=== PATIENT | male | born 1960 | race Caucasian/White ===

== ENCOUNTER 2020-05-22 15:47 | Outpatient (REF) | payer MEDICARE, MEDICAID, SELFPAY ==
--- NOTE | 2020-05-22 15:56 | XR_ITS ---
EXAMINATION: XR RIBS, RIGHT WITH CHEST XR STERNUM CLINICAL INFORMATION: R07.89 - Other chest pain COMPARISON: Chest radiographs 09/03/2016, 10/14/2011; CT chest 03/18/2017 TECHNIQUE: The chest and ribs are imaged in a total of 4 views: 2 frontal views and 2 oblique views. The sternum is imaged in 2 views: Oblique and lateral. (Interpretation delayed as order was cancelled in [facility] and now made available for review). FINDINGS: There is no visible acute rib fracture or rib destructive process. Old rib fractures are again seen, or right lateral sixth rib and left posterior lateral seventh, eighth, and ninth ribs. There is no pneumothorax or pleural reaction. No airspace consolidation or effusion. The cardiac and hilar and mediastinal contours are unremarkable. The sternum appears intact. No fracture or destructive process. There are mild degenerative changes thoracic spine again seen. XR/XR sternum min 2V IMPRESSION: 1. No acute rib fracture or rib destructive process. Unremarkable sternum. 2. Old fractures right lateral sixth rib and left seventh, eighth, and ninth ribs. 3. No acute intrathoracic disease.
--- NOTE | 2020-05-22 15:56 | XR_ITS ---
EXAMINATION: XR RIBS, RIGHT WITH CHEST XR STERNUM CLINICAL INFORMATION: R07.89 - Other chest pain COMPARISON: Chest radiographs 09/03/2016, 10/14/2011; CT chest 03/18/2017 TECHNIQUE: The chest and ribs are imaged in a total of 4 views: 2 frontal views and 2 oblique views. The sternum is imaged in 2 views: Oblique and lateral. (Interpretation delayed as order was cancelled in [facility] and now made available for review). FINDINGS: There is no visible acute rib fracture or rib destructive process. Old rib fractures are again seen, or right lateral sixth rib and left posterior lateral seventh, eighth, and ninth ribs. There is no pneumothorax or pleural reaction. No airspace consolidation or effusion. The cardiac and hilar and mediastinal contours are unremarkable. The sternum appears intact. No fracture or destructive process. There are mild degenerative changes thoracic spine again seen. XR/XR ribs RT min 3V w CXR1V IMPRESSION: 1. No acute rib fracture or rib destructive process. Unremarkable sternum. 2. Old fractures right lateral sixth rib and left seventh, eighth, and ninth ribs. 3. No acute intrathoracic disease.
== END 2020-05-22 15:48 | disposition home or self-care (01) ==
LOC: HO.XRAY 15:47
PROVIDERS: PCP Internal Medicine; Visit Provider Internal Medicine
DX: R07.89 Other chest pain (principal)
CPT/HCPCS: 71101; 71120

== ENCOUNTER 2020-09-06 07:19 | Outpatient (REF) | payer MEDICARE, MEDICAID, SELFPAY ==
[2020-09-06 07:45] LABS: MANUAL DIFF FLAG NO
[2020-09-06 07:51] LABS: Basophils Absolute Auto 0.1 X10*3/uL (0.0-0.2); Basophils Percent Auto 0.6 % (0-2); Eosinophils Absolute Auto 0.2 X10*3/uL (0.0-0.4); Hemoglobin 13.8 g/dl (14.0-18.0); Imm Gran Abs Auto 0.05 X10*3/uL (0.00-0.03); Imm Gran Pct Auto 0.6 % (0.0-0.4); Lymphocytes Absolute Auto 1.4 X10*3/uL (1.2-4.9); Lymphocytes Percent Auto 17.9 % (20-40); Mean Corpuscular HGB Conc 34.5 g/dl (31.0-36.0); Mean Corpuscular Hemoglobin 30.3 pg (27.0-33.0); Mean Corpuscular Volume 87.7 fL (80-98); Mean Platelet Volume 8.9 fL (9.4-12.4); Monocytes Absolute Auto 0.7 X10*3/uL (0.1-1.2); Monocytes Percent Auto 9.1 % (2-11); Neutrophils Absolute Auto 5.6 X10*3/uL (2.0-8.3); Neutrophils Percent Auto 68.8 % (45-73); Platelet Count 305 X10*3/uL (160-400); Red Blood Count 4.56 X10*6/uL (4.60-5.80); Red Cell Distribution Width 12.5 % (11.0-16.0); White Blood Count 8.1 X10*3/uL (4.8-10.8)
[2020-09-06 08:25] LABS: Glucose Urine UA NEG (NEG); Leukocyte Esterase Urine NEG (NEG); Nitrite Urine NEG (NEG); PH 5.5 (5.0-8.0); Urine Blood TRACE (NEG); Urine Ketones NEG (NEG); Urine Protein NEG (NEG-TRACE)
[2020-09-06 08:27] LABS: Appearance Urine CLEAR; Color Urine YELLOW
[2020-09-06 08:34] LABS: WBC Urine 0 /HPF (0-4)
[2020-09-06 08:48] LABS: Estimated Average Glucose 146 mg/dL; Hemoglobin A1c % 6.7 %
[2020-09-06 09:08] LABS: Alanine Aminotransferase 22 U/L (0-40); Albumin Level 4.2 g/dL (3.5-5.0); Alkaline Phosphatase 90 U/L (39-117); Anion Gap 11 (12-20); Aspartate Amino Transferase 14 U/L (5-37); Bilirubin Total 0.5 mg/dL (0.0-1.0); Blood Urea Nitrogen 18 mg/dL (9-16); Calcium 8.9 mg/dL (8.4-10.2); Carbon Dioxide 23 mmol/L (22-29); Chloride 107 mmol/L (96-108); Cholesterol 176 mg/dL; Estimated Glomerular Filt Rate 59; Glucose Fasting 195 mg/dL (60-99); HDL Cholesterol 35 mg/dL; LDL Cholesterol Calculated 111 mg/dl; Potassium 4.4 mmol/L (3.3-5.1); Sodium 137 mmol/L (135-145); Total Protein 6.7 g/dL (6.5-8.0); Triglycerides 154 mg/dL
[2020-09-06 09:18] LABS: TSH reflex Free T4 1.02 uIU/mL (0.32-4.0); Vitamin D 25-OH Total 34.9 ng/mL (>30)
[2020-09-06 09:25] LABS: Folate 10.7 ng/mL (> or = 4.0); Vitamin B12 200 pg/mL (200-900)
== END 2020-09-06 07:20 | disposition home or self-care (01) ==
LOC: HO.LAB 07:19
PROVIDERS: PCP Internal Medicine; Visit Provider Internal Medicine
DX: I10 Essential (primary) hypertension (principal); J44.9 Chronic obstructive pulmonary disease, unspecified; E78.2 Mixed hyperlipidemia; R73.01 Impaired fasting glucose; E66.9 Obesity, unspecified; G62.9 Polyneuropathy, unspecified; E55.9 Vitamin D deficiency, unspecified
CPT/HCPCS: 36415; 80053; 80061; 81001; 81003; 82306; 82607; 82746; 83036; 84443; 85025

== ENCOUNTER → 2020-12-17 14:37 | Outpatient (BNVA) | payer MEDICARE, MEDICAID, SELFPAY | PROVIDERS: PCP Internal Medicine; Visit Provider Surgery Vascular Surgery | DX: I83.12 Varicose veins of left lower extremity with inflammation (principal) | CPT/HCPCS: 99202 ==

== ENCOUNTER 2020-12-26 12:28 | Outpatient (REF) | payer MEDICARE, MEDICAID, SELFPAY ==
--- NOTE | ~2020-12-26 | US_ITS ---
EXAMINATION: RIGHT and LEFT LOWER EXTREMITY VENOUS ULTRASOUND (Reflux Exam) CLINICAL INDICATION: leg pain and varicose veins. COMPARISON: None. TECHNIQUE: Color flow triplex imaging and compression Doppler was performed to evaluate both the deep and the superficial systems bilaterally. To evaluate the superficial system, the examination was performed in the upright position. Color-flow Doppler ultrasound and compression ultrasound were utilized. In addition, maneuvers were utilized to demonstrate reflux. FINDINGS: 1. DEEP VENOUS ULTRASOUND OF THE RIGHT LOWER EXTREMITY: Respiratory variation, normal compression and augmented flow are noted in the right common femoral vein as well as the right popliteal vein and there is no evidence of deep venous thrombosis at these locations. There is no evidence of reflux in the deep system in either the common femoral vein or the popliteal vein. There is no evidence of a Mcknight's cyst. 2. SUPERFICIAL ULTRASOUND WITH DOPPLER OF RIGHT LOWER EXTREMITY: The right great saphenous vein at the saphenofemoral junction measures 7 mm, at the mid thigh 3 mm, rvbzr-unl-opcv 3 mm, qlisg-ovl-brta 3 mm, at mid calf 3 mm and at the ankle measures 3 mm. There is no reflux demonstrated in the right great saphenous vein. There is an accessory medial greater saphenous vein that measures 6 mm and does not demonstrate reflux The right small saphenous vein measures 0.3 mm and shows no reflux. There are 2 perforators in the calf that measure 2 and 3 mm and do not demonstrate reflux. 3. DEEP VENOUS ULTRASOUND OF THE LEFT LOWER EXTREMITY: Respiratory variation, normal compression and augmented flow are noted in the left common femoral vein as well as the left popliteal vein and there is no evidence of deep venous thrombosis at these locations. There is no evidence of reflux in the deep system in either the common femoral vein or the popliteal vein. . There is no evidence of a Mcknight's cyst. 4. SUPERFICIAL ULTRASOUND WITH DOPPLER OF LEFT LOWER EXTREMITY: Left great saphenous vein at the saphenofemoral junction measures 8 mm, at the mid thigh 3 mm, pcobe-rxs-qrps 4 mm, woytx-wrn-bdka 3 mm, at mid calf 3 mm and at the ankle measures 3 mm. There is 0.4 seconds reflux below the knee. There is an accessory lateral greater saphenous vein that measures 5 mm do not demonstrate reflux. The left small saphenous vein measures 2-3 mm and shows no reflux. There are 2 perforators in the calf that measure 3 mm and do not demonstrate reflux. US/US venous duplex LE BI IMPRESSION: 1. No evidence of reflux or thrombus in the common femoral veins or popliteal veins bilaterally. 2. No right greater saphenous vein reflux. 0.4 seconds left greater saphenous vein reflux below the knee.
== END 2020-12-26 12:29 | disposition home or self-care (01) ==
LOC: HO.US 12:28
PROVIDERS: Visit Provider Surgery Vascular Surgery
DX: I83.12 Varicose veins of left lower extremity with inflammation (principal); I83.893 Varicose veins of bilateral lower extremities with other complications
CPT/HCPCS: 93970

== ENCOUNTER 2021-01-07 14:47 | Outpatient (REF) | payer MEDICARE, MEDICAID, SELFPAY ==
[2021-01-07 18:15] LABS: Anion Gap 15 (12-20); Blood Urea Nitrogen 12 mg/dL (9-16); Calcium 10.3 mg/dL (8.4-10.2); Carbon Dioxide 25 mmol/L (22-29); Chloride 104 mmol/L (96-108); Estimated Glomerular Filt Rate 56; Glucose Random 94 mg/dL (60-115); Potassium 4.7 mmol/L (3.3-5.1); Sodium 139 mmol/L (135-145)
[2021-01-07 18:21] LABS: B Type Natriuretic Peptide 13 pg/mL (<100)
[2021-01-09 13:41] LABS: H Pylori Breath Test NOT DETECTED (NOT DETECTED)
== END 2021-01-07 14:48 | disposition home or self-care (01) ==
LOC: HO.LAB 14:47
PROVIDERS: Nurse Practitioner Family; PCP Internal Medicine; Visit Provider Surgery Vascular Surgery
DX: K21.9 Gastro-esophageal reflux disease without esophagitis (principal); K59.00 Constipation, unspecified; R07.89 Other chest pain; M79.89 Other specified soft tissue disorders; R06.02 Shortness of breath; Z87.891 Personal history of nicotine dependence
CPT/HCPCS: 36415; 80048; 83013; 83880; 99202; 99212

== ENCOUNTER → 2021-01-17 16:02 | Outpatient (BNVA) | payer MEDICARE, MEDICAID, SELFPAY | PROVIDERS: PCP Internal Medicine; Visit Provider Nurse Practitioner Family | DX: K21.9 Gastro-esophageal reflux disease without esophagitis (principal); K59.00 Constipation, unspecified | CPT/HCPCS: 99212 ==

== ENCOUNTER → 2021-02-11 14:37 | Outpatient (BNVA) | payer MEDICARE, MEDICAID, SELFPAY | PROVIDERS: PCP Internal Medicine; Referring Provider Internal Medicine; Visit Provider Internal Medicine | DX: R07.2 Precordial pain (principal); J44.9 Chronic obstructive pulmonary disease, unspecified; I10 Essential (primary) hypertension; E78.5 Hyperlipidemia, unspecified; E66.01 Morbid (severe) obesity due to excess calories; K21.9 Gastro-esophageal reflux disease without esophagitis; K59.01 Slow transit constipation; E53.8 Deficiency of other specified B group vitamins; E55.9 Vitamin D deficiency, unspecified; F17.210 Nicotine dependence, cigarettes, uncomplicated; Z68.35 Body mass index [BMI] 35.0-35.9, adult; Z79.899 Other long term (current) drug therapy | CPT/HCPCS: 93005; 99202; 99212 ==

== ENCOUNTER → 2021-02-28 11:20 | Outpatient (REF) | payer MEDICARE, MEDICAID, SELFPAY ==
--- NOTE | 2021-02-28 11:24 | CA_ITS ---
Transthoracic Echocardiogram Patient (Last, First, Middle): Toby Jackson D Gender: Male Date of : 1960 Age: 61 Procedure Date: 02/28/2021 Procedure Type: Transthoracic Echocardiogram Location: OP Height: 182.88 cm Weight: 127.01 kg BSA: 2.46 m2 Heart Rate: bpm BP: 146 / 68 mmHg Bin Operator: Referring MD: Esdras Thorpe MD Symptoms: R07.2 - Precordial pain Conclusions: - Normal left ventricular size, thickness, and systolic function. - The basal inferior segment is akinetic. - Normal right ventricular cavity size and systolic function. Findings Left Ventricle Normal left ventricular size, thickness, and systolic function. There is evidence of regional wall motion abnormalities. Diastolic function is normal for age. Wall Motion Rest Echo Findings The basal inferior segment is akinetic. Right Ventricle Normal right ventricular cavity size and systolic function. Atria Both atria are normal in size. Aortic Valve Normal aortic valve structure and function. There is no aortic valve stenosis. There is no aortic valve regurgitation. Mitral Valve Normal mitral valve structure and function. There is trace mitral valve regurgitation. There is no mitral valve stenosis. Pulmonic Valve Normal pulmonic valve structure and function. There is trace pulmonic valve regurgitation. Tricuspid Valve Normal tricuspid valve structure and function. There is trace tricuspid valve regurgitation. Tricuspid regurgitation envelope is inadequate for calculation of right ventricular systolic pressure. Normal right atrial pressure. Great Vessels All visible segments of the aorta are normal in size. The visualized portions of the pulmonary artery and branches are normal. Venous The inferior vena cava is normal in size and collapses greater than 50% with inspiration. Pericardium/Pleural There is no evidence of pericardial effusion. Prior Study Comparison No prior study available for comparison. Measurements 2D Linear Measurements RVIDd: 3.73 RVIDd Index: 1.52 IVSd: 0.69 0.6-0.9/0.6-1.0 cm LVIDd: 6.28 3.9-5.3/4.2-5.9 cm LVIDd Index: 2.55 2.4-3.2/2.2-3.1 cm/m2 LVIDs: 3.84 2.0-3.6 cm LVPWd: 1.11 0.7-1.1 cm Ao Root: 3.20 2.1-3.5 cm LA Diam: 3.70 2.7-3.8/3.0-4.0 cm LAIDs Index: 1.50 1.5-2.3 cm/m2 LV Mass: 291.44 67-162/88-224 g LV Mass Index: 118.47 43-95/49-115 g/m2 LVOT Diam: 2.50 3.0+(-)1.3 cm 2D Systolic Function EF 4C: 72.80 >55% EF 2C: 36.80 >55% EF BiP: 59.00 >55% Mitral Valve MV Pk E: 0.65 MV PK A: 0.63 MV Decel Time: 231.00 E/A: 1.00 E'Lateral: 8.92 E'Medial: 4.79 E/E' Med: 13.60 E/E' Lat: 7.30 Aortic Valve AoV Pk Jevon: 1.52 AoV Mn Jevon: 1.04 AoV VTI: 0.30 AoV Pk Grad: 9.00 Aov Mn Grad: 5.00 DESHAUN Cont.VTI: 3.88 LVOT LVOT Pk Jevon: 1.08 LVOT Mn Jevon: 0.71 LVOT VTI: 0.24 LVOT Pk Grad: 5.00 LVOT Mn Grad: 2.00 LVOT Diam: 2.50 LVOT Area: 4.91 Diastolic Function MV Pk E: 0.65 MV Pk A: 0.63 E/A: 1.00 E'Medial: 4.79 E/E' Med: 13.60 E' Laterial: 8.92 E/E' Lat: 7.30 Right Ventricle TAPSE (mm): 22.00 TVS' Jevon: 10.20 Tricuspid Valve RA Press: 3.00 Great Vessels Aorta Ao Root-2D: 3.20 2.0-3.7 cm Ao Asc: 3.30 2.1-3.4 cm Updated in Other Vendor System with Status of Final Umesh Snow MD electronically signed on 03/01/2021 4:29:28 PM with status of Final
== END ==
LOC: HO.CARD 11:20
PROVIDERS: Visit Provider Internal Medicine
DX: R07.2 Precordial pain (principal)
CPT/HCPCS: 93306

== ENCOUNTER → 2021-03-13 09:36 | Outpatient (REF) | payer MEDICARE, MEDICAID, SELFPAY ==
--- NOTE | ~2021-03-13 | NM_ITS ---
[facility] Myocardial perfusion study Indication: Chest pain, assess for coronary disease and ischemia Technique: The patient was brought in for a dobutamine myocardial perfusion study on 03/13/2021 and was injected dobutamine intravenously per protocol. 45 mCi of sestamibi was given intravenously. Images were obtained using the SPECT gamma camera interlaced with the gating device. Images were obtained in supine position. Resting perfusion study was performed on 03/14/2021. Patient was administered 45 mCi of sestamibi intravenously at rest. Images were then obtained in supine position. Total DLP 115mGy-cm. Images were processed with the software and compared side to side in short axis, horizontal long axis and vertical long axis views. Findings: Raw acquisition was reviewed. The stress perfusion study showed markedly diminished tracer uptake along the inferior wall; basal septum. There is improvement with CT attenuation correction and hence could have components of diaphragmatic attenuation artifact. The most distal inferior wall still has perfusion defect. The gated study shows low normal LV systolic function with calculated LVEF of 51%. LV cavity is slightly dilated in size. The gated study shows diminished wall thickening and contractility in the inferior wall. Resting study shows markedly diminished tracer uptake in the inferior wall, basal inferior septum and septum. There is improvement with CT attenuation correction and hence could be from diaphragmatic attenuation artifact. In the most distal inferior wall, the defect still persists. Gating at rest reveals ejection fraction at 46%. Inferior wall with slight hypokinesis. The findings are consistent with mostly fixed inferior wall defect with minimal reversibility. Improvement with CT attenuation correction could indicate diaphragmatic attenuation artifact, but cannot exclude a prior inferior wall infarction. NM/NM cardiolite stress test Impression: 1. Myocardial perfusion imaging study shows fixed inferior perfusion defect that could be from a prior infarct vs diaphragmatic attenuation artifact. Could also has some components of both. 2. Gated LVEF is 51% during stress and 46% during rest. 3. Transient ischemic dilatation not present. EKG component of the test reported separately.
--- NOTE | 2021-03-13 09:42 | CA_ITS ---
Acquisition Time: 2021-03-13 10:01:24 Total Exercise Time: 00:10:16 Test Indications: Dyspnea Medications: ALBUTEROL AMLODIPINE FAMOTIDINE TRELOGY/ELLIPTA LOSARTAN PANTOPRAZOLE TOPIRAMATE TRAMADOL Protocol: DOBUTAMINE Max HR: 141 BPM 89% of Pred: 157 BPM Max BP: 190/078 mmHG Max Work Load: 1.0 METS Pharmacological stress test with Dobutamine infusion to max of 20mcg/kg/min achieving heart rate 141 b/min, 89% MPHR, while sitting and kicking his legs, with moderate to severe shortness of breath, no chest discomfort, with isolated PVC, with normotensive response to infusion, without EKG changes meeting criteria for ischemia. In recovery he was given O2 2liters and he used 2 puffs of his own albuteral inhaler. His breathing gradually improved back to baseline. In recovery he did report getting an episode of heartburn that was mild and same as what he gets at home and responds to tums if it gets real bad. He denies need for tums at this time. He was recovered for 14 min and reports feeling back to his normal. Nuclear images pending. Test reviewed with Dr Thorpe. Referred By: Esdras Thorpe Overread By: DERICK DE JESUS
== END ==
LOC: HO.CARD 09:36
PROVIDERS: Visit Provider Internal Medicine
DX: R07.2 Precordial pain (principal); R06.02 Shortness of breath
CPT/HCPCS: 78452; 93017; A9500; J1250

== ENCOUNTER → 2021-03-18 13:50 | Outpatient (BNVA) | payer MEDICARE, MEDICAID, SELFPAY | PROVIDERS: PCP Internal Medicine; Visit Provider Nurse Practitioner Family | DX: K59.04 Chronic idiopathic constipation (principal); K21.9 Gastro-esophageal reflux disease without esophagitis | CPT/HCPCS: Q3014 ==

== ENCOUNTER 2021-03-20 08:59 | Outpatient (REF) | payer MEDICARE, MEDICAID, SELFPAY ==
[2021-03-20 10:39] LABS: INTERNATIONAL NORM RATIO 1.1 (0.9-1.1); Prothrombin Time 12.1 SEC (9.9-13.0)
[2021-03-20 10:41] LABS: Hematocrit 42.4 % (42-52); Hemoglobin 14.2 g/dl (14.0-18.0); Mean Corpuscular HGB Conc 33.5 g/dl (31.0-36.0); Mean Corpuscular Hemoglobin 29.6 pg (27.0-33.0); Mean Corpuscular Volume 88.5 fL (80-98); Mean Platelet Volume 9.5 fL (9.4-12.4); Platelet Count 300 X10*3/uL (160-400); Red Blood Count 4.79 X10*6/uL (4.60-5.80); Red Cell Distribution Width 12.6 % (11.0-16.0); White Blood Count 8.8 X10*3/uL (4.8-10.8)
[2021-03-20 10:56] LABS: Anion Gap 10 (12-20); Blood Urea Nitrogen 13 mg/dL (9-16); Calcium 9.3 mg/dL (8.4-10.2); Carbon Dioxide 27 mmol/L (22-29); Chloride 108 mmol/L (96-108); Estimated Glomerular Filt Rate > 60; Glucose Random 106 mg/dL (60-115); Potassium 4.7 mmol/L (3.3-5.1); Sodium 140 mmol/L (135-145)
== END 2021-03-20 09:00 | disposition home or self-care (01) ==
LOC: HO.LAB 08:59
PROVIDERS: PCP Internal Medicine; Referring Provider Internal Medicine; Visit Provider Internal Medicine
DX: R07.2 Precordial pain (principal); J44.9 Chronic obstructive pulmonary disease, unspecified; I10 Essential (primary) hypertension; E78.5 Hyperlipidemia, unspecified; E66.01 Morbid (severe) obesity due to excess calories; Z68.35 Body mass index [BMI] 35.0-35.9, adult; F17.200 Nicotine dependence, unspecified, uncomplicated; Z71.6 Tobacco abuse counseling; Z79.899 Other long term (current) drug therapy
CPT/HCPCS: 36415; 80048; 85027; 85610; 99212

== ENCOUNTER → 2021-04-08 13:18 | Outpatient (BNVA) | payer MEDICARE, MEDICAID, SELFPAY | PROVIDERS: PCP Internal Medicine; Referring Provider Internal Medicine; Visit Provider Internal Medicine | DX: I25.10 Atherosclerotic heart disease of native coronary artery without angina pectoris (principal); I10 Essential (primary) hypertension; E78.5 Hyperlipidemia, unspecified; E66.01 Morbid (severe) obesity due to excess calories; F17.200 Nicotine dependence, unspecified, uncomplicated; J44.9 Chronic obstructive pulmonary disease, unspecified | CPT/HCPCS: 99212 ==

== ENCOUNTER 2021-05-27 07:10 | Outpatient (REF) | payer MEDICARE, MEDICAID, SELFPAY ==
[2021-05-27 07:15] LABS: MANUAL DIFF FLAG NO
[2021-05-27 08:15] LABS: Basophils Percent Auto 0.4 % (0-2); Eosinophils Absolute Auto 0.3 X10*3/uL (0.0-0.4); Eosinophils Percent Auto 2.8 % (0-4); Hematocrit 44.6 % (42.0-52.0); Hemoglobin 14.9 g/dl (14.0-18.0); Imm Gran Abs Auto 0.05 X10*3/uL (0.00-0.03); Imm Gran Pct Auto 0.5 % (0.0-0.4); Lymphocytes Absolute Auto 1.2 X10*3/uL (1.2-4.9); Lymphocytes Percent Auto 11.9 % (20-40); Mean Corpuscular HGB Conc 33.4 g/dl (31.0-36.0); Mean Corpuscular Hemoglobin 29.6 pg (27.0-33.0); Mean Corpuscular Volume 88.7 fL (80.0-98.0); Mean Platelet Volume 8.9 fL (9.4-12.4); Monocytes Absolute Auto 0.8 X10*3/uL (0.1-1.2); Monocytes Percent Auto 7.4 % (2-11); Neutrophils Absolute Auto 7.8 x10*3/uL (2.0-8.3); Platelet Count 305 X10*3/uL (160-400); Red Blood Count 5.03 X10*6/uL (4.60-5.80); White Blood Count 10.1 X10*3/uL (4.8-10.8)
[2021-05-27 08:24] LABS: Estimated Average Glucose 114 mg/dL; Hemoglobin A1c % 5.6 %
[2021-05-27 08:39] LABS: Alanine Aminotransferase 21 U/L (0-40); Albumin Level 4.3 g/dL (3.5-5.0); Alkaline Phosphatase 119 U/L (39-117); Anion Gap 12 (12-20); Aspartate Amino Transferase 15 U/L (5-37); Bilirubin Total 0.5 mg/dL (0.0-1.0); Blood Urea Nitrogen 11 mg/dL (9-16); Calcium 9.7 mg/dL (8.4-10.2); Carbon Dioxide 27 mmol/L (22-29); Chloride 105 mmol/L (96-108); Cholesterol 101 mg/dL; Estimated Glomerular Filt Rate > 60; Glucose Fasting 125 mg/dL (60-99); HDL Cholesterol 33 mg/dL; LDL Cholesterol Calculated 53 mg/dl; Potassium 4.7 mmol/L (3.3-5.1); Sodium 139 mmol/L (135-145); Triglycerides 79 mg/dL
[2021-05-27 09:01] LABS: Appearance Urine CLEAR; Color Urine YELLOW; Glucose Urine UA NEG (NEG); Leukocyte Esterase Urine NEG (NEG); Nitrite Urine NEG (NEG); Specific Gravity - Urine 1.015 (1.005-1.025); Urine Blood NEG (NEG); Urine Ketones NEG (NEG); Urine Protein NEG (NEG-TRACE)
[2021-05-27 09:02] LABS: TSH reflex Free T4 1.11 uIU/mL (0.32-4.0); Vitamin D 25-OH Total 42.4 ng/mL (>30)
[2021-05-27 09:07] LABS: Folate 8.2 ng/mL (> or = 4.0); Vitamin B12 953 pg/mL (200-900)
== END 2021-05-27 07:11 | disposition home or self-care (01) ==
LOC: HO.LAB 07:10
PROVIDERS: PCP Internal Medicine; Visit Provider Internal Medicine
DX: E55.9 Vitamin D deficiency, unspecified (principal); I10 Essential (primary) hypertension; J44.9 Chronic obstructive pulmonary disease, unspecified; R73.01 Impaired fasting glucose; E78.2 Mixed hyperlipidemia; E66.9 Obesity, unspecified; G62.9 Polyneuropathy, unspecified; R35.0 Frequency of micturition
CPT/HCPCS: 36415; 80053; 80061; 81003; 82306; 82607; 82746; 83036; 84443; 85025

== ENCOUNTER → 2021-06-10 12:48 | Outpatient (BNVA) | payer MEDICARE, MEDICAID, SELFPAY | PROVIDERS: PCP Internal Medicine; Referring Provider Internal Medicine; Visit Provider Internal Medicine | DX: I25.10 Atherosclerotic heart disease of native coronary artery without angina pectoris (principal); I10 Essential (primary) hypertension; E78.5 Hyperlipidemia, unspecified; J44.9 Chronic obstructive pulmonary disease, unspecified; E66.01 Morbid (severe) obesity due to excess calories; F17.210 Nicotine dependence, cigarettes, uncomplicated; Z68.34 Body mass index [BMI] 34.0-34.9, adult | CPT/HCPCS: 99212 ==

== ENCOUNTER → 2021-07-24 15:05 | Outpatient (BNVA) | payer MEDICARE, MEDICAID, SELFPAY | PROVIDERS: PCP Internal Medicine; Referring Provider Internal Medicine; Visit Provider Nurse Practitioner Family | DX: K59.04 Chronic idiopathic constipation (principal); K21.9 Gastro-esophageal reflux disease without esophagitis | CPT/HCPCS: 99212 ==

== ENCOUNTER 2021-09-04 10:08 | Outpatient (REF) | payer MEDICARE, MEDICAID, SELFPAY ==
--- NOTE | ~2021-09-04 | US_ITS ---
EXAMINATION: US SCROTUM CLINICAL INFORMATION: Left testicular pain. Rule out epididymal cyst. COMPARISON: None TECHNIQUE: A sonogram of the scrotum was performed assessing chow-scale appearance and color Doppler flow. Spectral Doppler analysis of the arterial and venous flow were performed in the testes bilaterally. FINDINGS: RIGHT: Right testicle measures 3.59 x 2.42 x 2.95 cm, volume 13.4 mL. No focal testicular parenchymal lesions are visualized. Spectral Doppler analysis of the arterial and venous flow is normal in the right testis. Right epididymal head cyst 1.1 x 0.4 x 0.7 cm. Mild hydrocele. There are dilated veins suggesting varicocele. LEFT: Left testicle measures 3.85 x 2.04 x 3.39 cm, volume 13.9 mL. No focal testicular parenchymal lesions are visualized. Spectral Doppler analysis of the arterial and venous flow is normal in the left testis. Left epididymal head is normal in size. Mild varicocele and hydrocele. US/US scrotum IMPRESSION: *No suspicious intratesticular mass or lesion. *Bilateral mild hydroceles/varicoceles. *Right epididymal head cyst. 1.1 cm.
== END 2021-09-04 10:09 | disposition home or self-care (01) ==
LOC: HO.HMGCX 10:08
PROVIDERS: PCP Internal Medicine; Visit Provider Physician Assistant
DX: N50.812 Left testicular pain (principal)
CPT/HCPCS: 76870

== ENCOUNTER → 2021-09-16 12:53 | Outpatient (BNVA) | payer MEDICARE, MEDICAID, SELFPAY | PROVIDERS: PCP Internal Medicine; Referring Provider Internal Medicine; Visit Provider Internal Medicine | DX: I25.10 Atherosclerotic heart disease of native coronary artery without angina pectoris (principal); I10 Essential (primary) hypertension; J44.9 Chronic obstructive pulmonary disease, unspecified; E78.5 Hyperlipidemia, unspecified; E66.01 Morbid (severe) obesity due to excess calories; Z68.32 Body mass index [BMI] 32.0-32.9, adult; F17.200 Nicotine dependence, unspecified, uncomplicated; Z79.02 Long term (current) use of antithrombotics/antiplatelets; Z79.899 Other long term (current) drug therapy | CPT/HCPCS: 99212 ==

== ENCOUNTER → 2021-10-28 13:42 | Outpatient (BNVA) | payer MEDICARE, MEDICAID, SELFPAY | PROVIDERS: PCP Internal Medicine; Referring Provider Internal Medicine; Visit Provider Nurse Practitioner Family | DX: K21.9 Gastro-esophageal reflux disease without esophagitis (principal); K59.04 Chronic idiopathic constipation | CPT/HCPCS: 99212 ==

== ENCOUNTER 2022-01-12 06:43 | Outpatient (REF) | payer MEDICARE, MEDICAID, SELFPAY ==
[2022-01-12 07:14] LABS: MANUAL DIFF FLAG NO
[2022-01-12 08:03] LABS: Basophils Absolute Auto 0.1 X10*3/uL (0.0-0.2); Basophils Percent Auto 0.8 % (0-2); Eosinophils Absolute Auto 0.3 X10*3/uL (0.0-0.4); Eosinophils Percent Auto 4.6 % (0-4); Hematocrit 45.1 % (42.0-52.0); Hemoglobin 15.4 g/dl (14.0-18.0); Imm Gran Abs Auto 0.02 X10*3/uL (0.00-0.03); Imm Gran Pct Auto 0.3 % (0.0-0.4); Lymphocytes Absolute Auto 1.3 X10*3/uL (1.2-4.9); Lymphocytes Percent Auto 20.4 % (20-40); Mean Corpuscular HGB Conc 34.1 g/dl (31.0-36.0); Mean Corpuscular Hemoglobin 30.3 pg (27.0-33.0); Mean Corpuscular Volume 88.6 fL (80.0-98.0); Mean Platelet Volume 9.1 fL (9.4-12.4); Monocytes Absolute Auto 0.6 X10*3/uL (0.1-1.2); Monocytes Percent Auto 9.7 % (2-11); Neutrophils Absolute Auto 4.1 x10*3/uL (2.0-8.3); Neutrophils Percent Auto 64.2 % (45-73); Platelet Count 256 X10*3/uL (160-400); Red Blood Count 5.09 X10*6/uL (4.60-5.80); Red Cell Distribution Width 12.4 % (11.0-16.0); White Blood Count 6.3 X10*3/uL (4.8-10.8)
[2022-01-12 08:13] LABS: Estimated Average Glucose 103 mg/dL; Hemoglobin A1c % 5.2 %
[2022-01-12 08:17] LABS: Appearance Urine CLEAR; Color Urine YELLOW; Glucose Urine UA NEG (NEG); Leukocyte Esterase Urine NEG (NEG); Nitrite Urine NEG (NEG); UACC Culture Trigger NO; Urine Blood 1+ (NEG); Urine Ketones NEG (NEG); Urine Protein NEG (NEG-TRACE)
[2022-01-12 08:33] LABS: Alanine Aminotransferase 17 U/L (0-40); Albumin Level 4.3 g/dL (3.5-5.0); Alkaline Phosphatase 117 U/L (39-117); Anion Gap 10 (12-20); Aspartate Amino Transferase 14 U/L (5-37); Bilirubin Total 0.9 mg/dL (0.0-1.0); Blood Urea Nitrogen 16 mg/dL (9-16); Calcium 9.4 mg/dL (8.4-10.2); Carbon Dioxide 27 mmol/L (22-29); Chloride 106 mmol/L (96-108); Cholesterol 102 mg/dL; Estimated Glomerular Filt Rate > 60; Glucose Fasting 107 mg/dL (60-99); HDL Cholesterol 37 mg/dL; LDL Cholesterol Calculated 50 mg/dl; Potassium 4.6 mmol/L (3.3-5.1); Sodium 138 mmol/L (135-145); Total Protein 6.6 g/dL (6.5-8.0); Triglycerides 79 mg/dL
[2022-01-12 08:37] LABS: WBC Urine 0-2 /HPF (0-4)
[2022-01-12 08:54] LABS: TSH reflex Free T4 1.05 uIU/mL (0.32-4.0); Vitamin D 25-OH Total 40.7 ng/mL (>30)
== END 2022-01-12 06:44 | disposition home or self-care (01) ==
LOC: HO.LAB 06:43
PROVIDERS: PCP Internal Medicine; Visit Provider Internal Medicine
DX: R73.01 Impaired fasting glucose (principal); I10 Essential (primary) hypertension; E55.9 Vitamin D deficiency, unspecified; E78.00 Pure hypercholesterolemia, unspecified
CPT/HCPCS: 36415; 80053; 80061; 81001; 81003; 82306; 83036; 84443; 85025

== ENCOUNTER 2022-02-20 08:11 | Outpatient (AMB) | payer MEDICARE, MEDICAID, SELFPAY ==
--- NOTE | 2022-02-19 11:06 | A.OFFVIS_ITS ---
Intake Vital Signs 02/20/22 08:33 Height 6 ft 1 in Weight 242 lb BMI 31.9 BP 140/68 H Blood Pressure Location Rt brachial Position Sitting Intake Visit Reasons: Testicular Pain Intake Note: Patient is present for testicular pain Patient does have hisory of urinary frequency Patient states that he has been having this pain for over 3 months. States the pain comes and goes Environmental Coordinator Required: No Accompanied by: Self / Same As Patient Allergies No Known Allergies Allergy (Verified 07/27/23 15:13) HPI HPI Comments History of Present Illness Details Toby is a pleasant male. He is a patient of Dr. Disla. He is seen for the following urologic conditions - Inguinal disruption Left medial inguinal canal pain on examination Therapeutic plan conservative therapy with anti-inflammatories Would consider PT if symptoms persist more than 2-3 months PFSH Medical History (Updated 07/27/23 @ 15:41 by Sanju Disla MD) Overweight (BMI 25.0-29.9) Constipation Atherosclerotic cardiovascular disease Swelling of left lower extremity Vitamin B12 deficiency GERD without esophagitis Anterior chest wall pain Mixed hyperlipidemia Primary insomnia Urinary frequency Neuropathy Vitamin D deficiency Osteoarthritis Lumbar degenerative disc disease Impaired fasting glucose Benign essential hypertension COPD (chronic obstructive pulmonary disease) Headache Epidermoid cyst Surgical History History of cardiac cath History of colonoscopy Family History Father Colon cancer Mother Medical history unknown Social History Housing: Apartment Alcohol intake: former Patient Tobacco Use Status: Current everyday Tobacco user Tobacco use type: Cigarette Cigarettes Per Day: 6 Years Smoked: 30 +/- e-Cigarette/Vaping Use: Never Used Second Hand Smoke Exposure: Yes service: No Current occupational status: disabled Cognitive needs: No Hearing needs: Yes Vision needs: Yes (reading glasses) Review of Systems Const Denies chills and Denies fever(s) Card Reports no additional complaints and Denies syncope Resp Denies cough GI Denies abdominal pain and Denies heartburn Reports as per HPI and Denies change in libido Neuro Denies syncope Psych Denies change in libido Endo Denies change in libido Physical Exam Vital Signs: Last Vital Signs BP 140/68 H 08/19/22 08:33 BMI result Body Mass Index 31.9 Const General: cooperative, healthy appearing, comfortable and no acute distress Orientation/consciousness: patient oriented x3 HEENT Face and sinus: Yes normal facial exam Mouth: moist mucous membranes Neck Neck: Yes normal visual inspection, Yes full ROM and Yes trachea midline Chest Chest palpation & inspection: normal inspection of the chest Resp Effort & Inspection: normal respiratory effort, able to speak in complete [place] and no respiratory distress GI Inspection: Yes normal to inspection Back/Spine/Pelvis Cervical Spine: normal cervical lordosis Thoracic/Lumbar Spine: thoracic and lumbar spine normal to inspection Skin General skin exam: no rashes or lesions noted Neuro General: patient oriented x3, gait normal, tone normal and moves all extremities Extrem General: Yes normal to inspection and Yes capillary refill normal Results AMB Urinalysis, Automated UA Leukoctes 0 Lila/uL Last Edit by RAND Hendricks on 02/20/22 08:46 UA Nitrite Negative Last Edit by Tisha Dumont [facility] on 02/20/22 08:46 UA Urobilinogen 0.2 mg/dL Last Edit by Tisha Dumont [facility] on 02/20/22 08:4 6 UA Protein 0 mg/dL Last Edit by Tisha Dumont [facility] on 02/20/22 08:46 UA pH 6.0 Last Edit by Tisha Dumont [facility] on 02/20/22 08:46 UA Blood 80 Kevin/uL Last Edit by Tisha Dumont [facility] on 02/20/22 08:46 UA Specific [place] 1.015 Last Edit by VAL Hendricks on 02/20/22 08: 46 UA Ketone Negative Last Edit by Tisha Dumont [facility] on 02/20/22 08:46 UA Bilirubin 0 mg/dL Last Edit by RAND Hendricks on 02/20/22 08:46 UA Glucose 0 mg/dL Last Edit by Tisha Dumont [facility] on 02/20/22 08:46 Results Reviewed Results Reviewed: Laboratory Last Values Urine pH (Auto) 6.0 02/20/22 08:44 [address] [place] (Auto) 1.015 02/20/22 08:44 Urine Protein (Auto) 0 mg/dL 02/20/22 08:44 Glucose (UA)(Auto) 0 mg/dL 02/20/22 08:44 Urine Ketones (Auto) Negative 02/20/22 08:44 Urine Blood (Auto) 80 Kevin/uL 02/20/22 08:44 Urine Nitrite (Auto) Negative 02/20/22 08:44 Urine Bilirubin (Auto) 0 mg/dL 02/20/22 08:44 Urine Urobilinogen (Auto) 0.2 mg/dL 02/20/22 08:44 Leukocyte Esterase (Auto) 0 Lila/uL 02/20/22 08:44 Assessment & Plan Assessment & Plan (1) BPH loc w urin obs/LUTS: Code(s): N40.1 - Benign prostatic hyperplasia with lower urinary tract symptoms (2) Testicular pain, left: Code(s): N50.812 - Left testicular pain Plan P.r.n. follow-up Orders: Orders AMB Urinalysis Automated 02/20/22 Z13.9 - Encounter for screening, unspecified Urine Cytology 02/20/22 R31.29 - Other microscopic hematuria Patient Instructions: Imaging studies, laboratory and physical exam results were discussed and reviewed in detail. No major barriers to patient understanding were identified. An opportunity to ask questions regarding the treatment plan was provided. All questions were answered. The patient expressed understanding and agreement with the above treatment plan. The patient is aware they should contact our office by phone for worsening of their current condition or the appearance of new urologic symptoms. Compliance i s encouraged with any medications and followup testing that is ordered. It is a privilege to participate in the urologic care of your patient. If you have any questions or concerns regarding treatment for the above conditions, or other urologic issues, please do not hesitate to contact me. The office telephone contact is [phone]. This note is constructed using voice recognition software. While every effort has been made to ensure accuracy backroom associate errors may have been included. Yours sincerely, Dr Francisco Pizano MD, [facility] - Urology Providers of Expert, Compassionate Care for the Genitourinary System Coding Level of Care Code New Pt Level 3 (24512) Diagnoses BPH loc w urin obs/LUTS N40.1 Testicular pain, left N50.812
[2022-02-20 08:33] VITALS: BP 140/68; BMI 31.9
== END 2022-02-20 09:16 | disposition home or self-care (01) ==
LOC: HO.HUSH 08:11
PROVIDERS: PCP Internal Medicine; Visit Provider Urology
DX: N40.1 Benign prostatic hyperplasia with lower urinary tract symptoms (principal); N50.812 Left testicular pain
CPT/HCPCS: 99499

== ENCOUNTER 2022-02-20 09:31 | Outpatient (REF) | payer MEDICARE, MEDICAID, SELFPAY ==
[2022-02-24 06:58] LABS: Urine Cytology See Pathology rpt
== END 2022-02-20 09:32 | disposition home or self-care (01) ==
LOC: HO.LAB 09:31
PROVIDERS: Visit Provider Urology
DX: R31.29 Other microscopic hematuria (principal)
CPT/HCPCS: 88112

== ENCOUNTER 2022-02-20 13:01 | Outpatient (REF) | payer MEDICARE, MEDICAID, SELFPAY ==
[2022-02-20 13:05] LABS: Urine Cytology See Pathology rpt
== END 2022-02-20 13:02 | disposition home or self-care (01) ==
LOC: HO.LNP 13:01
PROVIDERS: Visit Provider Urology
DX: Z13.89 Encounter for screening for other disorder (principal)

== ENCOUNTER → 2022-03-17 15:03 | Outpatient (BNVA) | payer MEDICARE, MEDICAID, SELFPAY | PROVIDERS: PCP Internal Medicine; Visit Provider Nurse Practitioner Family | DX: K21.9 Gastro-esophageal reflux disease without esophagitis (principal); K59.04 Chronic idiopathic constipation; K58.2 Mixed irritable bowel syndrome; Z79.899 Other long term (current) drug therapy | CPT/HCPCS: 99212 ==

== ENCOUNTER → 2022-03-24 12:53 | Outpatient (BNVA) | payer MEDICARE, MEDICAID, SELFPAY | PROVIDERS: PCP Internal Medicine; Referring Provider Internal Medicine; Visit Provider Internal Medicine | DX: I25.10 Atherosclerotic heart disease of native coronary artery without angina pectoris (principal); I10 Essential (primary) hypertension; E78.5 Hyperlipidemia, unspecified; J44.9 Chronic obstructive pulmonary disease, unspecified; E66.01 Morbid (severe) obesity due to excess calories; Z68.31 Body mass index [BMI] 31.0-31.9, adult; F17.210 Nicotine dependence, cigarettes, uncomplicated; Z79.899 Other long term (current) drug therapy | CPT/HCPCS: 93005; 99212 ==

== ENCOUNTER 2022-03-28 10:23 | Outpatient (REF) | payer MEDICARE, MEDICAID, SELFPAY ==
[2022-03-28 11:08] LABS: Blood Urea Nitrogen 14 mg/dL (9-16); Estimated Glomerular Filt Rate > 60
== END 2022-03-28 10:24 | disposition home or self-care (01) ==
LOC: HO.LAB 10:23
PROVIDERS: PCP Internal Medicine; Visit Provider Nurse Practitioner Family
DX: R10.11 Right upper quadrant pain (principal)
CPT/HCPCS: 36415; 82565; 84520

== ENCOUNTER 2022-03-31 13:51 | Outpatient (REF) | payer MEDICARE, MEDICAID, SELFPAY ==
--- NOTE | ~2022-03-31 | CT_ITS ---
EXAMINATION: CT ABDOMEN AND PELVIS WITH CONTRAST CLINICAL INFORMATION: Abdominal pain COMPARISON: Previous CT of the abdomen and pelvis February 2020 TECHNIQUE: Multidetector volumetric images were obtained from the superior aspect of the liver through the pubic symphysis following administration 85 mL of Omnipaque 350 intravenous contrast. Sagittal and coronal reformatted images were obtained on the technologist's workstation. Oral contrast: Yes This CT examination was performed using dose optimization techniques as appropriate, variously including the following: *Automated exposure control *Adjustment of mA and/or kV according to patient size (this includes techniques or standardized protocols for targeted exams where dose is matched to indication/reason for exam; i.e. extremities or head) *Use of iterative reconstruction technique DLP: 658 mGy-cm FINDINGS: LUNG BASES: The visualized lung bases are unremarkable. LIVER, GALLBLADDER, AND BILIARY TREE: The liver is normal in size, shape, and attenuation. No focal hepatic lesion or biliary ductal dilatation is present. There are gallstones in the gallbladder. The gallbladder is otherwise normal. PANCREAS: Unremarkable. SPLEEN: Unremarkable. ADRENAL GLANDS: Unremarkable. KIDNEYS AND URETERS: There are several stones in the lower pole of the left kidney, largest measures 5 x 8 mm. The right kidney is normal. There is no hydronephrosis, ureteral dilatation or ureteral stone. BLADDER: Unremarkable. GASTROINTESTINAL TRACT: There is diverticulosis of the colon. No evidence of diverticulitis is seen. Small and large bowel is otherwise normal. The appendix is normal. The stomach is normal. ABDOMINAL WALL: There is a small umbilical hernia containing fat. LYMPH NODES: Normal. VASCULAR: Unremarkable. PELVIC VISCERA: Unremarkable. OSSEOUS STRUCTURES: There are degenerative changes of the spine. There is AVN of the femoral heads. CT/CT abdomen pelvis w IV con IMPRESSION: Gallstones. Left renal stones. Diverticulosis. No evidence of diverticulitis. Bilateral femoral head AVN Fleischner guidelines were followed.
[2022-03-31] MEDS: iohexoL 350 MG/ML 100 ML INFUS..BTL IV (16:19)
== END 2022-03-31 13:52 | disposition home or self-care (01) ==
LOC: HO.CT 13:51
PROVIDERS: Visit Provider Nurse Practitioner Family
DX: R10.32 Left lower quadrant pain (principal)
CPT/HCPCS: 74177; Q9967

== ENCOUNTER 2022-05-18 06:37 | Outpatient (REF) | payer MEDICARE, MEDICAID, SELFPAY ==
[2022-05-18 06:42] LABS: MANUAL DIFF FLAG NO
[2022-05-18 07:41] LABS: Appearance Urine Clear; Color Urine Yellow; Glucose Urine UA Negative (Negative); Leukocyte Esterase Urine Negative (Negative); Nitrite Urine Negative (Negative); PH 6.5 (5.0-9.0); UMIC TRIGGER UACC YES; Urine Blood Moderate (2+) (Negative); Urine Ketones Negative (Negative); Urine Protein Negative (Neg-Trace)
[2022-05-18 07:42] LABS: Basophils Absolute Auto 0.1 X10*3/uL (0.0-0.2); Basophils Percent Auto 0.6 % (0-2); Eosinophils Absolute Auto 0.3 X10*3/uL (0.0-0.4); Eosinophils Percent Auto 3.7 % (0-4); Hematocrit 44.6 % (42.0-52.0); Hemoglobin 15.5 g/dl (14.0-18.0); Imm Gran Abs Auto 0.03 X10*3/uL (0.00-0.03); Imm Gran Pct Auto 0.4 % (0.0-0.4); Lymphocytes Absolute Auto 1.4 X10*3/uL (1.2-4.9); Lymphocytes Percent Auto 18.1 % (20-40); Mean Corpuscular HGB Conc 34.8 g/dl (31.0-36.0); Mean Corpuscular Volume 89.2 fL (80.0-98.0); Mean Platelet Volume 8.7 fL (9.4-12.4); Monocytes Absolute Auto 0.7 X10*3/uL (0.1-1.2); Monocytes Percent Auto 8.4 % (2-11); Neutrophils Absolute Auto 5.4 x10*3/uL (2.0-8.3); Neutrophils Percent Auto 68.8 % (45-73); Platelet Count 271 X10*3/uL (160-400); Red Cell Distribution Width 12.4 % (11.0-16.0); White Blood Count 7.9 X10*3/uL (4.8-10.8)
[2022-05-18 07:47] LABS: Bacteria Urine None Seen (None Seen); Hyaline Casts Urine 0-2 /LPF (0-2); RBC Urine >20 /HPF (0-2); Squamous Epithelial Cell Urine 0-2 /HPF (0-2); WBC Urine 0-5 /HPF (0-5)
[2022-05-18 08:38] LABS: Alanine Aminotransferase 21 U/L (0-40); Alkaline Phosphatase 121 U/L (39-117); Anion Gap 15 (12-20); Aspartate Amino Transferase 16 U/L (5-37); Bilirubin Total 0.6 mg/dL (0.0-1.0); Blood Urea Nitrogen 13 mg/dL (9-16); Calcium 9.3 mg/dL (8.4-10.2); Carbon Dioxide 23 mmol/L (22-29); Chloride 108 mmol/L (96-108); Cholesterol 104 mg/dL; Estimated Glomerular Filt Rate > 60; Glucose Fasting 104 mg/dL (60-99); HDL Cholesterol 35 mg/dL; LDL Cholesterol Calculated 57 mg/dl; Potassium 4.6 mmol/L (3.3-5.1); Sodium 141 mmol/L (135-145); Total Protein 6.6 g/dL (6.5-8.0); Triglycerides 64 mg/dL; Vitamin D 25-OH Total 42.7 ng/mL (>30)
== END 2022-05-18 06:38 | disposition home or self-care (01) ==
LOC: HO.LAB 06:37
PROVIDERS: PCP Internal Medicine; Visit Provider Internal Medicine
DX: I10 Essential (primary) hypertension (principal); E55.9 Vitamin D deficiency, unspecified; E78.00 Pure hypercholesterolemia, unspecified
CPT/HCPCS: 36415; 80053; 80061; 81001; 82306; 85025

== ENCOUNTER → 2022-06-16 14:22 | Outpatient (BNVA) | payer MEDICARE, MEDICAID, SELFPAY | PROVIDERS: PCP Internal Medicine; Visit Provider Nurse Practitioner Family | DX: K59.04 Chronic idiopathic constipation (principal) | CPT/HCPCS: 99212 ==

== ENCOUNTER 2022-08-22 06:57 | Outpatient (REF) | payer MEDICARE, MEDICAID, SELFPAY ==
[2022-08-22 07:13] LABS: MANUAL DIFF FLAG NO
[2022-08-22 07:54] LABS: Appearance Urine Clear; Color Urine Yellow; Glucose Urine UA Negative (Negative); Leukocyte Esterase Urine Negative (Negative); Nitrite Urine Negative (Negative); UMIC TRIGGER UACC YES; Urine Blood Trace (Negative); Urine Ketones Negative (Negative); Urine Protein Negative (Neg-Trace)
[2022-08-22 08:08] LABS: Basophils Percent Auto 0.6 % (0-2); Eosinophils Absolute Auto 0.2 X10*3/uL (0.0-0.4); Eosinophils Percent Auto 3.1 % (0-4); Hemoglobin 15.2 g/dl (14.0-18.0); Imm Gran Abs Auto 0.02 X10*3/uL (0.00-0.03); Imm Gran Pct Auto 0.3 % (0.0-0.4); Lymphocytes Absolute Auto 1.3 X10*3/uL (1.2-4.9); Lymphocytes Percent Auto 17.9 % (20-40); Mean Corpuscular HGB Conc 33.8 g/dl (31.0-36.0); Mean Corpuscular Hemoglobin 30.2 pg (27.0-33.0); Mean Corpuscular Volume 89.3 fL (80.0-98.0); Mean Platelet Volume 8.8 fL (9.4-12.4); Monocytes Absolute Auto 0.6 X10*3/uL (0.1-1.2); Neutrophils Absolute Auto 4.9 x10*3/uL (2.0-8.3); Neutrophils Percent Auto 69.1 % (45-73); Platelet Count 299 X10*3/uL (160-400); Red Blood Count 5.04 X10*6/uL (4.60-5.80); Red Cell Distribution Width 12.4 % (11.0-16.0); White Blood Count 7.1 X10*3/uL (4.8-10.8)
[2022-08-22 08:21] LABS: Bacteria Urine None Seen (None Seen); Hyaline Casts Urine 0-2 /LPF (0-2); Squamous Epithelial Cell Urine 0-2 /HPF (0-2); WBC Urine 0-5 /HPF (0-5)
[2022-08-22 08:28] LABS: Alanine Aminotransferase 19 U/L (0-40); Albumin Level 3.9 g/dL (3.5-5.0); Alkaline Phosphatase 126 U/L (39-117); Anion Gap 12 (12-20); Aspartate Amino Transferase 16 U/L (5-37); Blood Urea Nitrogen 11 mg/dL (9-16); Calcium 9.1 mg/dL (8.4-10.2); Carbon Dioxide 26 mmol/L (22-29); Chloride 107 mmol/L (96-108); Cholesterol 95 mg/dL; Estimated Glomerular Filt Rate > 60; Glucose Fasting 95 mg/dL (60-99); HDL Cholesterol 34 mg/dL; LDL Cholesterol Calculated 44 mg/dl; Potassium 4.5 mmol/L (3.3-5.1); Sodium 140 mmol/L (135-145); Total Protein 6.1 g/dL (6.5-8.0); Triglycerides 85 mg/dL
== END 2022-08-22 06:58 | disposition home or self-care (01) ==
LOC: HO.LAB 06:57
PROVIDERS: PCP Internal Medicine; Visit Provider Internal Medicine
DX: E78.00 Pure hypercholesterolemia, unspecified (principal); I10 Essential (primary) hypertension
CPT/HCPCS: 36415; 80053; 80061; 81001; 81003; 85025

== ENCOUNTER → 2022-10-06 12:29 | Outpatient (BNVA) | payer MEDICARE, MEDICAID, SELFPAY | PROVIDERS: PCP Internal Medicine; Referring Provider Internal Medicine; Visit Provider Internal Medicine | DX: I25.10 Atherosclerotic heart disease of native coronary artery without angina pectoris (principal); I10 Essential (primary) hypertension; J44.9 Chronic obstructive pulmonary disease, unspecified; E66.01 Morbid (severe) obesity due to excess calories; E78.5 Hyperlipidemia, unspecified; E53.8 Deficiency of other specified B group vitamins; E55.9 Vitamin D deficiency, unspecified; F17.210 Nicotine dependence, cigarettes, uncomplicated; Z68.30 Body mass index [BMI] 30.0-30.9, adult; Z98.890 Other specified postprocedural states | CPT/HCPCS: 99212 ==

== ENCOUNTER → 2022-10-13 14:24 | Outpatient (BNVA) | payer MEDICARE, MEDICAID, SELFPAY | PROVIDERS: PCP Internal Medicine; Visit Provider Nurse Practitioner Family | DX: K59.04 Chronic idiopathic constipation (principal); K21.9 Gastro-esophageal reflux disease without esophagitis | CPT/HCPCS: 99212 ==

== ENCOUNTER 2022-11-03 16:12 | Outpatient (REF) | payer OTHER, MEDICAID, SELFPAY ==
--- NOTE | ~2022-11-03 | XR_ITS ---
EXAMINATION: XR LUMBOSACRAL SPINE CLINICAL INFORMATION: Low back pain COMPARISON: Previous x-ray from 2010 TECHNIQUE: Three views of the lumbosacral spine. FINDINGS: There is mild curvature of the lower lumbar spine to the left. There is mild 5 mm anterior subluxation of L5 with respect L4 and S1. Bone alignment is otherwise normal. No fracture or dislocation. Degenerative spondylosis and degenerative disc disease at L2-L3, L4-L5 and L5-S1. Lower lumbar spine facet arthritis. Calcifications over the lower pole the left kidney suggestive of stones. XR/XR lumbar spine 2-3V IMPRESSION: Degenerative changes. Left renal stones.
--- NOTE | ~2022-11-03 | XR_ITS ---
EXAMINATION: XR KNEE, RIGHT CLINICAL INFORMATION: Pain COMPARISON: Previous x-ray February 2015 TECHNIQUE: Four views of the right knee. FINDINGS: There is a right 3 component knee replacement in satisfactory position. No fracture, dislocation or x-ray evidence of loosening. No joint effusion. XR/XR knee RT 4V IMPRESSION: Satisfactory appearance of right knee replacement.
== END 2022-11-03 16:13 | disposition home or self-care (01) ==
LOC: HO.XRAY 16:12
PROVIDERS: PCP Internal Medicine; Visit Provider Internal Medicine
DX: M54.50 Low back pain, unspecified (principal); M25.561 Pain in right knee
CPT/HCPCS: 72100; 73564

== ENCOUNTER 2022-11-23 06:59 | Outpatient (REF) | payer MEDICARE, SELFPAY ==
[2022-11-23 07:08] LABS: MANUAL DIFF FLAG NO
[2022-11-23 07:28] LABS: Basophils Absolute Auto 0.1 X10*3/uL (0.0-0.2); Basophils Percent Auto 0.6 % (0-2); Eosinophils Absolute Auto 0.2 X10*3/uL (0.0-0.4); Eosinophils Percent Auto 2.5 % (0-4); Hematocrit 44.9 % (42.0-52.0); Hemoglobin 15.7 g/dl (14.0-18.0); Imm Gran Abs Auto 0.02 X10*3/uL (0.00-0.03); Imm Gran Pct Auto 0.2 % (0.0-0.4); Lymphocytes Absolute Auto 1.4 X10*3/uL (1.2-4.9); Lymphocytes Percent Auto 16.9 % (20-40); Mean Corpuscular Hemoglobin 31.3 pg (27.0-33.0); Mean Corpuscular Volume 89.4 fL (80.0-98.0); Mean Platelet Volume 8.9 fL (9.4-12.4); Monocytes Absolute Auto 0.7 X10*3/uL (0.1-1.2); Monocytes Percent Auto 8.6 % (2-11); Neutrophils Absolute Auto 5.7 x10*3/uL (2.0-8.3); Neutrophils Percent Auto 71.2 % (45-73); Platelet Count 273 X10*3/uL (160-400); Red Blood Count 5.02 X10*6/uL (4.60-5.80); Red Cell Distribution Width 12.9 % (11.0-16.0); White Blood Count 8.1 X10*3/uL (4.8-10.8)
[2022-11-23 08:06] LABS: Alanine Aminotransferase 19 U/L (0-40); Alkaline Phosphatase 110 U/L (39-117); Anion Gap 12 (12-20); Aspartate Amino Transferase 15 U/L (5-37); Bilirubin Total 0.9 mg/dL (0.0-1.0); Blood Urea Nitrogen 13 mg/dL (9-16); Calcium 9.4 mg/dL (8.4-10.2); Carbon Dioxide 28 mmol/L (22-29); Chloride 106 mmol/L (96-108); Cholesterol 99 mg/dL; Estimated Glomerular Filt Rate > 60; Glucose Fasting 99 mg/dL (60-99); HDL Cholesterol 39 mg/dL; LDL Cholesterol Calculated 49 mg/dl; Potassium 4.3 mmol/L (3.3-5.1); Sodium 142 mmol/L (135-145); Total Protein 6.4 g/dL (6.5-8.0); Triglycerides 59 mg/dL
[2022-11-23 08:23] LABS: TSH reflex Free T4 1.23 uIU/mL (0.32-4.0); Vitamin D 25-OH Total 40.9 ng/mL (>30)
[2022-11-23 10:01] LABS: Appearance Urine Clear; Color Urine Yellow; Glucose Urine UA Negative (Negative); Leukocyte Esterase Urine Negative (Negative); Nitrite Urine Negative (Negative); Specific Gravity - Urine 1.015 (1.005-1.025); UMIC TRIGGER UACC YES; Urine Blood Trace (Negative); Urine Ketones Negative (Negative); Urine Protein Negative (Neg-Trace)
[2022-11-23 10:09] LABS: Bacteria Urine None Seen (None Seen); Hyaline Casts Urine 0-2 /LPF (0-2); Squamous Epithelial Cell Urine 0-2 /HPF (0-2); WBC Urine 0-5 /HPF (0-5)
== END 2022-11-23 07:00 | disposition home or self-care (01) ==
LOC: HO.LAB 06:59
PROVIDERS: PCP Internal Medicine; Visit Provider Internal Medicine
DX: E78.00 Pure hypercholesterolemia, unspecified (principal); E55.9 Vitamin D deficiency, unspecified; I10 Essential (primary) hypertension
CPT/HCPCS: 36415; 80053; 80061; 81001; 81003; 82306; 84443; 85025

== ENCOUNTER → 2022-12-22 13:15 | Outpatient (BNVA) | payer MEDICARE, SELFPAY | PROVIDERS: PCP Internal Medicine; Visit Provider Nurse Practitioner Family | DX: M47.26 Other spondylosis with radiculopathy, lumbar region (principal); M51.36 Other intervertebral disc degeneration, lumbar region; M62.830 Muscle spasm of back; N20.0 Calculus of kidney | CPT/HCPCS: 99202 ==

== ENCOUNTER 2023-01-26 14:47 | Outpatient (REF) | payer MEDICARE, SELFPAY | END 2023-01-26 14:48 | disposition home or self-care (01) | LOC: HO.LNP 14:47 | PROVIDERS: PCP Internal Medicine; Visit Provider Nurse Practitioner Family | DX: N20.0 Calculus of kidney (principal); R31.29 Other microscopic hematuria; N40.0 Benign prostatic hyperplasia without lower urinary tract symptoms; I10 Essential (primary) hypertension; F17.210 Nicotine dependence, cigarettes, uncomplicated; Z79.899 Other long term (current) drug therapy; Z79.82 Long term (current) use of aspirin | CPT/HCPCS: 99202 ==

== ENCOUNTER 2023-01-26 14:47 | Outpatient (AMB) | payer MEDICARE, SELFPAY ==
--- NOTE | 2023-01-26 14:49 | A.OFFVIS_ITS ---
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 Accompanied by: Self / Same As Patient Allergies No Known Allergies Allergy (Verified 01/26/23 15:25) Medication List - Last Reconciled 01/26/23 by KEELY Reich-STEFANY albuterol sulfate 90 mcg/actuation (Ventolin HFA) 2 puffs inhalation Q6H PRN albuterol sulfate 2.5 mg (3 mL) continuous nebulization QID PRN amlodipine 5 mg PO DAILY aspirin 81 mg PO DAILY atorvastatin 80 mg PO DAILY bisacodyl (Gentle Laxative (bisacodyl)) 10 mg (2 x 5 mg) PO BEDTIME 2 days cholecalciferol (vitamin D3) (Vitamin D3) 25 mcg PO DAILY cyanocobalamin (vitamin B-12) 1,000 mcg PO DAILY docusate sodium 100 mg PO BEDTIME famotidine (Pepcid) 20 mg PO BEDTIME 90 days [id number] 100-62.5-25 mcg (Trelegy Ellipta) 1 inh inhalation DAILY isosorbide mononitrate ER 30 mg PO DAILY lidocaine 5% 1 patch topical DAILY 30 days losartan 100 mg PO DAILY lubiprostone (Amitiza) 24 mcg PO BID magnesium citrate (Citrate of Magnesia oral) 150 mL PO DAILY PRN methocarbamol 500 mg PO BID PRN 30 days methylcellulose (laxative) (Citrucel) 500 mg PO DAILY nitroglycerin 0.4 mg sublingual Q5M PRN nystatin 500,000 units (5 mL) mucous membrane TID 10 days pantoprazole 40 mg PO DAILY roflumilast (Daliresp) 500 mcg PO DAILY topiramate 25 mg PO DAILY HPI HPI Comments History of Present Illness Details Toby is a very pleasant 63-year-old male patient of Dr. Disla who was accompanied by his significant other at today's visit. He has a past medical history of ACD, hypertension, constipation, COPD with oxygen dependence, GERD, headache, lumbar degenerative disc disease, hyperlipidemia, neuropathy, osteoarthritis, insomnia, and obesity. He presents to the office today as a new patient for microscopic hematuria as well as nephrolithiasis. In discussion with the patient today he reports following up with pain management for ongoing issues with his back at which time recommendations were made for Urology follow-up due to longstanding history of nephrolithiasis. When asked patient denies any previous surgical interventions for kidney stones. In office urinalysis today with microscopic hematuria. Patient reports to be a longstanding smoker for many years. He reports currently he is smoking half a pack of cigarettes per day. He denies any known chemical exposure. Discussed at length potential causes of microscopic hematuria. Discussed obtaining CT urogram for further assessment evaluation as well as follow-up in office cystoscopy. Will send urine today for cytology. Patient otherwise denies urinary urgency, urinary frequency, incontinence, nocturia, hematuria, dysuria, foul smelling urine, changes to urinary stream, flank pain, fever, and or chills. He is happy with his current voiding parameters. In review of patient's chart it does not appear PSA has been ordered or performed. BORIS offered however deferred. Will obtain PSA patient is agreeable. In review of patient's chart it appears CT from 03/26 showing/ reporting several stones in the lower pole of the left kidney, largest measures 5 x 8 mm. The right kidney is normal. There is no hydronephrosis, ureteral dilatation or ureteral stone. The bladder is unremarkable [facility] Medical History Anterior chest wall pain Atherosclerotic cardiovascular disease Benign essential hypertension Constipation COPD (chronic obstructive pulmonary disease) Epidermoid cyst GERD without esophagitis Headache Impaired fasting glucose Lumbar degenerative disc disease Mixed hyperlipidemia Neuropathy Obesity (BMI 30-39.9) Osteoarthritis Primary insomnia Swelling of left lower extremity Urinary frequency Vitamin B12 deficiency Vitamin D deficiency Surgical History History of cardiac cath History of colonoscopy Family History Father Colon cancer Mother Medical history unknown Social History Housing: Apartment Alcohol intake: former Patient Tobacco Use Status: Current everyday Tobacco user Tobacco use type: Cigarette Cigarettes Per Day: 6 Years Smoked: 30 +/- e-Cigarette/Vaping Use: Never Used Second Hand Smoke Exposure: Yes service: No Current occupational status: disabled Cognitive needs: No Hearing needs: Yes Vision needs: Yes (reading glasses) Review of Systems Const Reports as per HPI Eyes Reports no additional complaints ENT Reports no additional complaints Card Reports as per [facility] Resp Reports as per [facility] GI Reports as per [facility] Reports as per [facility] Musc Reports as per [facility] Neuro Reports as per [facility] Psych Reports no additional complaints Physical Exam Const General: cooperative, comfortable, no acute distress, well developed, alert and awake Orientation/consciousness: patient oriented x3 Limitations: no limitations HEENT Head: Yes normal to inspection, Yes normocephalic and Yes atraumatic Ears: hearing grossly normal bilaterally Eyes General: appearance normal, both eyes and all related structures Neck Neck: Yes normal visual inspection and Yes trachea midline Chest Chest palpation & inspection: normal inspection of the chest Resp Effort & Inspection: normal respiratory effort and audible wheezes Cardio Rate: regular rate GI Inspection: Yes normal to inspection General: Yes CVA tenderness (left side ) Back/Spine/Pelvis Back: CVA tenderness (left side ) Skin General skin exam: no rashes or lesions noted Neuro General: patient oriented x3 Extrem General: Yes normal to inspection Psych Appearance: grossly normal and well kempt Mental Status: mental status grossly normal Speech and movement: Normal speech and movement present and Clear speech present Affect: normal affect Attitude: cooperative Thought process: Normal thought process present Thought content: Normal thought content present Insight: Fair insight present (Psych) Judgement: Fair judgement present (Psych) Results AMB Urinalysis, Automated UA Leukoctes 0 Lila/uL Last Edit by Mobil Oto Servis on 01/26/23 15:19 UA Nitrite Last Edit by Mobil Oto Servis on 01/26/23 15:19 UA Urobilinogen 0.2 mg/dL Last Edit by Mobil Oto Servis on 01/26/23 15:19 UA Protein 0 mg/dL Last Edit by Mobil Oto Servis on 01/26/23 15:19 UA pH 6.5 Last Edit by Mobil Oto Servis on 01/26/23 15:19 UA Blood 80 Kevin/uL Last Edit by Mobil Oto Servis on 01/26/23 15:19 UA Specific Mcbee 1.015 Last Edit by Mobil Oto Servis on 01/26/23 15:19 UA Ketone Last Edit by Mobil Oto Servis on 01/26/23 15:19 UA Bilirubin 0 mg/dL Last Edit by Mobil Oto Servis on 01/26/23 15:19 UA Glucose 0 mg/dL Last Edit by Osvaldo Odom on 01/26/23 15:19 Results Reviewed Results Reviewed: Laboratory Last Values Urine pH (Auto) 6.5 01/26/23 14:54 Specific Mcbee (Auto) 1.015 01/26/23 14:54 Urine Protein (Auto) 0 mg/dL 01/26/23 14:54 Glucose (UA)(Auto) 0 mg/dL 01/26/23 14:54 Urine Blood (Auto) 80 Kevin/uL 01/26/23 14:54 Urine Bilirubin (Auto) 0 mg/dL 01/26/23 14:54 Urine Urobilinogen (Auto) 0.2 mg/dL 01/26/23 14:54 Leukocyte Esterase (Auto) 0 Lila/uL 01/26/23 14:54 Date of Service: 03/31/22 FINDINGS: LUNG BASES: The visualized lung bases are unremarkable.? LIVER, GALLBLADDER, AND BILIARY TREE: The liver is normal in size, shape, and attenuation. No focal hepatic lesion or biliary ductal dilatation is present. There are gallstones in the gallbladder. The gallbladder is otherwise normal. PANCREAS: Unremarkable.? SPLEEN: Unremarkable.? ADRENAL GLANDS: Unremarkable.? KIDNEYS AND URETERS: There are several stones in the lower pole of the left kidney, largest measures 5 x 8 mm. The right kidney is normal. There is no hydronephrosis, ureteral dilatation or ureteral stone. BLADDER: Unremarkable.? GASTROINTESTINAL TRACT: There is diverticulosis of the colon. No evidence of diverticulitis is seen. Small and large bowel is otherwise normal. The appendix is normal. The stomach is normal.? ABDOMINAL WALL: There is a small umbilical hernia containing fat.? LYMPH NODES: Normal. VASCULAR: Unremarkable. PELVIC VISCERA: Unremarkable.? OSSEOUS STRUCTURES: There are degenerative changes of the spine. There is AVN of the femoral heads.? IMPRESSION: Gallstones. Left renal stones. Diverticulosis. No evidence of diverticulitis. Bilateral femoral head AVN? Assessment & Plan Assessment & Plan (1) Microhematuria: Code(s): R31.29 - Other microscopic hematuria (2) Nephrolithiasis: Code(s): N20.0 - Calculus of kidney (3) Nicotine dependence: Code(s): F17.200 - Nicotine dependence, unspecified, uncomplicated Plan In office urinalysis results reviewed with the patient today; microscopic he maturia noted will send for cytology Discussed at length potential causes for microscopic hematuria Discussed microscopic hematuria workup with in office cystoscopy, and CT urogram for further assessment evaluation. Discussed microscopic hematuria in the setting of nicotine dependence as well as history of nephrolithiasis. Discussed at length importance of drinking plenty of water daily. CT urogram ordered BUN and Creatnine ordered for imaging Will obtain PSA for further assessment evaluation. Discussed and educated on the importance of limiting/quitting smoking for overall health and well-being. Follow-up in office cystoscopy with imaging and labs to be completed prior; or sooner with any issues, concerns, and or questions. Orders: Orders Urine Cytology Today N20.0 - Calculus of kidney CT urogram Today N20.0 - Calculus of kidney, R31.29 - Other microscopic hematuria Blood Urea Nitrogen Today N20.0 - Calculus of kidney, R31.29 - Other microscopic hematuria Creatinine Today N20.0 - Calculus of kidney, R31.29 - Other microscopic hematuria Prostate Specific Antigen Today N40.0 - Benign prostatic hyperplasia without lower urinary tract symptoms AMB Urinalysis Automated Today Z13.9 - Encounter for screening, unspecified Patient Instructions: The patient had an opportunity to ask questions regarding the treatment plan. All questions were answered. Physical exam, labs, and imaging were discussed and reviewed in detail. As well as risks, benefits, and discussion of treatment choices. No major barriers to understanding were identified. The patient expressed understanding and agreement with the above treatment plan. The patient was made aware they should contact our office by phone for worsening of their current condition, the appearance of new symptoms, or with any questions or concerns. Compliance is encouraged with any medications and follow up testing that is ordered. It is a privilege to be allowed the opportunity to participate in? your urological care.? Again, if you have any questions or concerns If you have any questions or concerns please do not hesitate to contact me. The office is [phone]. This note is constructed using voice recognition software. While every effort has been made to ensure accuracy sox analyst errors may have been included. Yours sincerely, OLIVER Reich Coding Level of Care Code New Pt Level 3 (71115) Diagnoses Microhematuria R31.29 Nephrolithiasis N20.0 Nicotine dependence F17.200
== END 2023-01-26 15:25 | disposition home or self-care (01) ==
PROVIDERS: PCP Internal Medicine; Visit Provider Nurse Practitioner Family
DX: R31.29 Other microscopic hematuria (principal); N20.0 Calculus of kidney; F17.200 Nicotine dependence, unspecified, uncomplicated
CPT/HCPCS: 99203

== ENCOUNTER 2023-01-26 15:44 | Outpatient (REF) | payer MEDICARE, SELFPAY ==
[2023-01-26 17:34] LABS: Urine Cytology See Pathology rpt
[2023-01-26 19:25] LABS: Blood Urea Nitrogen 15 mg/dL (9-16); Estimated Glomerular Filt Rate > 60
[2023-01-26 19:39] LABS: Prostate Specific Antigen 2.08 ng/mL (<0.05-4.0)
== END 2023-01-26 15:45 | disposition home or self-care (01) ==
LOC: HO.LAB 15:44
PROVIDERS: PCP Internal Medicine; Visit Provider Nurse Practitioner Family
DX: N20.0 Calculus of kidney (principal); N40.0 Benign prostatic hyperplasia without lower urinary tract symptoms; R31.29 Other microscopic hematuria; Z12.5 Encounter for screening for malignant neoplasm of prostate
CPT/HCPCS: 36415; 82565; 84153; 84520; 88112

== ENCOUNTER 2023-02-18 12:25 | Outpatient (REF) | payer MEDICARE, SELFPAY ==
--- NOTE | ~2023-02-18 | MR_ITS ---
EXAMINATION: MR LUMBAR SPINE WITHOUT CONTRAST CLINICAL INFORMATION: Spondylosis without myelopathy or radiculopathy, lumbar region. COMPARISON: None TECHNIQUE: MRI of the lumbar spine was obtained using routine sequences without contrast. FINDINGS: The lumbar vertebral bodies maintain normal heights. There is mild retrolisthesis of L3 on L4 and L4 on L5 and anterolisthesis of L5 on S1. There are bilateral defects of the L5 pars interarticularis. Significant disc height loss is seen at L3-L4, L4-L5, L5-S1 with varying degrees of endplate edema in addition to edema about a superior endplate Schmorl's node at L4. The distal spinal cord appears normal. The conus medullaris terminates normally at the L2 level. The visualized paraspinal muscles and intra-abdominal and pelvic contents are within normal limits. SPINAL LEVELS: L1-L2: No posterior disc abnormality. No spinal canal or neural foraminal stenosis. L2-L3: Mild disc bulging resulting mild narrowing of the neural foramina. No spinal canal stenosis. L3-L4: Disc bulging with ligament flavum infolding and moderate facet arthropathy resulting in mild to moderate spinal canal stenosis with bilateral subarticular stenosis. Right and left foraminal protrusions are seen compressing the exiting right more than left L3 nerve roots. L4-L5: Disc bulging with moderate facet arthropathy. Bilateral subarticular stenosis with compression of the traversing left more than right L5 nerve roots. Mild to moderate spinal canal stenosis. Severe bilateral neural foraminal stenosis with compression of both exiting L4 nerve roots. L5-S1: Disc bulging with severe facet arthropathy. Severe bilateral neural foraminal stenosis with compression of both exiting L5 nerve roots. No spinal canal stenosis. MR/MR lumbar spine wo con IMPRESSION: 1. At L3-L4 there is mild to moderate spinal canal stenosis with bilateral subarticular stenosis and compression of the exiting right more than left L3 nerve roots. 2. At L4-L5 there is mild to moderate spinal canal stenosis, bilateral subarticular stenosis with compression of the traversing L5 nerve roots, and severe bilateral neural foraminal stenosis with compression of both exiting L4 nerve roots. 3. At L5-S1 there is severe bilateral neural foraminal stenosis with compression of both exiting L5 nerve roots.
[2023-02-18 14:32] LABS: Blood Urea Nitrogen 14 mg/dL (9-16); Estimated Glomerular Filt Rate > 60
== END 2023-02-18 12:26 | disposition home or self-care (01) ==
LOC: HO.MRI 12:25
PROVIDERS: Absent Provider Nurse Practitioner Family; PCP Internal Medicine; Visit Provider Nurse Practitioner Family
DX: N20.0 Calculus of kidney (principal); R31.29 Other microscopic hematuria; M47.816 Spondylosis without myelopathy or radiculopathy, lumbar region; M51.36 Other intervertebral disc degeneration, lumbar region; M54.16 Radiculopathy, lumbar region
CPT/HCPCS: 36415; 72148; 82565; 84520

== ENCOUNTER 2023-03-04 08:42 | Outpatient (AMB) | payer MEDICARE, SELFPAY ==
--- NOTE | 2023-03-04 08:44 | MHC.OFFVIS ---
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 Denies any recent cough, cold, infection, fever or other significant changes in medical history since last office visit. Patient denies any bladder or bowel incontinence or saddle anesthesia. PRIOR: Patient is a pleasant 62 years old male with history of COPD, asthma, lumbar DDD, presents today with sudden low back pain for one month after intensive yard and garden work. Pain increases with bending to the left side, prolonged sitting, pulling, lifting or twisting. Denies any past trauma, injury or falls. His back pain is mostly axial and radiates to his left side with localized tenderness and muscle guarding. Recent lumbar spine xray is noted for There is mild curvature of the lower lumbar spine to the left. There is mild 5 mm anterior subluxation of L5 with respect L4 and S1. No fracture or dislocation. Degenerative spondylosis and degenerative disc disease at L2-L3, L4-L5 and L5-S1. Lower lumbar spine facet arthritis and left renal stones. Pain affects his daily activities, functioning, sleep and social interactions. Patient is interested to receive back injection as he would like not to take many medications or be dependent on them daily. Patient denies any fever, weight loss, abdominal or groin pain, flank pain, bladder or bowel incontinence or saddle anesthesia. Location Low back pain Duration Progressively getting worse since one month ago Characteristics of symptom or complaint Pinching, cramping, crushing, hot burning, aching Aggravating or associated factors Prolonged sitting, bending forward, changing position, coughing Relieving factors Ibuprofen, OTC topical creams, heat therapy, rest, activity modification Treatment None PFSH Medical History Anterior chest wall pain Atherosclerotic cardiovascular disease Benign essential hypertension Constipation COPD (chronic obstructive pulmonary disease) Epidermoid cyst GERD without esophagitis Headache Impaired fasting glucose Lumbar degenerative disc disease Mixed hyperlipidemia Neuropathy Obesity (BMI 30-39.9) Osteoarthritis Primary insomnia Swelling of left lower extremity Urinary frequency Vitamin B12 deficiency Vitamin D deficiency Surgical History History of cardiac cath History of colonoscopy Family History Father Colon cancer Mother Medical history unknown Social History Housing: Apartment Alcohol intake: former Patient Tobacco Use Status: Current everyday Tobacco user Tobacco use type: Cigarette Cigarettes Per Day: 6 Years Smoked: 30 +/- e-Cigarette/Vaping Use: Never Used Second Hand Smoke Exposure: Yes service: No Current occupational status: disabled Cognitive needs: No Hearing needs: Yes Vision needs: Yes (reading glasses) Review of Systems Const All systems reviewed & are unremarkable except as noted in HPI and below Physical Exam General: Appears afebrile. Alert and oriented. Mood and affect appropriate. Follows and participates in conversation appropriately. Respiratory effort is unlabored. No cough. Able to transition from sit to stand unassisted. Ambulates with antalgic gait, no limping. Back/Spine/Pelvis Cervical Spine: cervical ROM normal and No Cervical spine tenderness Thoracic/Lumbar Spine: thoracic and lumbar spine normal to inspection, No Thoracic/lumbar spine scar(s), Lasegue's sign positive on the left and diffuse, pain with thoraco-lumbar ROM, paraspinal muscle tenderness, thoraco-lumbar ROM limited, No thoracic spinal tenderness and lumbar spinal tenderness Sacroiliac joints: bilaterally tender to palpation Results Reviewed Results Reviewed: MR LUMBAR SPINE WITHOUT CONTRAST 02/18/23 CLINICAL INFORMATION: Spondylosis without myelopathy or radiculopathy, lumbar region. COMPARISON: None TECHNIQUE: MRI of the lumbar spine was obtained using routine sequences without contrast. FINDINGS: The lumbar vertebral bodies maintain normal heights. There is mild retrolisthesis of L3 on L4 and L4 on L5 and anterolisthesis of L5 on S1. There are bilateral defects of the L5 pars interarticularis. Significant disc height loss is seen at L3-L4, L4-L5, L5-S1 with varying degrees of endplate edema in addition to edema about a superior endplate Schmorl's node at L4. The distal spinal cord appears normal. The conus medullaris terminates normally at the L2 level. The visualized paraspinal muscles and intra-abdominal and pelvic contents are within normal limits. SPINAL LEVELS: L1-L2: No posterior disc abnormality. No spinal canal or neural foraminal stenosis. L2-L3: Mild disc bulging resulting mild narrowing of the neural foramina. No spinal canal stenosis. L3-L4: Disc bulging with ligament flavum infolding and moderate facet arthropathy resulting in mild to moderate spinal canal stenosis with bilateral subarticular stenosis. Right and left foraminal protrusions are seen compressing the exiting right more than left L3 nerve roots. L4-L5: Disc bulging with moderate facet arthropathy. Bilateral subarticular stenosis with compression of the traversing left more than right L5 nerve roots. Mild to moderate spinal canal stenosis. Severe bilateral neural foraminal stenosis with compression of both exiting L4 nerve roots. L5-S1: Disc bulging with severe facet arthropathy. Severe bilateral neural foraminal stenosis with compression of both exiting L5 nerve roots. No spinal canal stenosis. IMPRESSION: 1. At L3-L4 there is mild to moderate spinal canal stenosis with bilateral subarticular stenosis and compression of the exiting right more than left L3 nerve roots. 2. At L4-L5 there is mild to moderate spinal canal stenosis, bilateral subarticular stenosis with compression of the traversing L5 nerve roots, and severe bilateral neural foraminal stenosis with compression of both exiting L4 nerve roots. 3. At L5-S1 there is severe bilateral neural foraminal stenosis with compression of both exiting L5 nerve roots. XR LUMBOSACRAL SPINE 11/03/22 COMPARISON: Previous x-ray from 2009 FINDINGS: There is mild curvature of the lower lumbar spine to the left. There is mild 5 mm anterior subluxation of L5 with respect L4 and S1. Bone alignment is otherwise normal. No fracture or dislocation. Degenerative spondylosis and degenerative disc disease at L2-L3, L4-L5 and L5-S1. Lower lumbar spine facet arthritis. Calcifications over the lower pole the left kidney suggestive of stones. IMPRESSION: Degenerative changes. Left renal stones. CT/CT abdomen pelvis w IV con 03/31/22 OSSEOUS STRUCTURES: There are degenerative changes of the spine. There is AVN of the femoral heads. IMPRESSION: Gallstones. Left renal stones. Diverticulosis. No evidence of diverticulitis. Bilateral femoral head AVN Assessment & Plan Assessment & Plan (1) Lumbar radicular pain: Code(s): M54.16 - Radiculopathy, lumbar region (2) Lumbar degenerative disc disease: Code(s): M51.36 - Other intervertebral disc degeneration, lumbar region (3) Lumbar spondylosis: Code(s): M47.816 - Spondylosis without myelopathy or radiculopathy, lumbar region (4) Muscle spasm of back: Code(s): M62.830 - Muscle spasm of back (5) Spinal stenosis of lumbar region: Code(s): M48.061 - Spinal stenosis, lumbar region without neurogenic claudication Plan Lumbar spine MRI results reviewed with patient today and his family. Patient reports his back pain improved over the past 2 weeks with activity modifications, lidocaine patches, NSAIDs and muscle relaxant. He rates his pain at 2/10. Briefly discussed interventional treatments for axial and radicular back symptoms. Patient will notify our office if his symptoms worsen. Recommend formal physical therapy for lower back for core and strengthening. Script provided at [facility] per patient's request as [place] location will be much closer to his home. Follow-up in 2-3 months to see response to physical therapy, if no response to physical therapy will consider further interventional strategy. Orders: Orders PT Evaluation and Treatment Today M47.816 - Spondylosis without myelopathy or radiculopathy, lumbar region, M48.061 - Spinal stenosis, lumbar region without neurogenic claudication, M51.36 - Other intervertebral disc degeneration, lumbar region, M54.16 - Radiculopathy, lumbar region, M62.830 - Muscle spasm of back Coding Level of Care Code Est Pt Level 4 (10073) Diagnoses Lumbar radicular pain M54.16 Lumbar degenerative disc disease M51.36 Lumbar spondylosis M47.816 Muscle spasm of back M62.830 Spinal stenosis of lumbar region M48.061
[2023-03-04 08:51] VITALS: BP 159/83; PULSE 80; O2SAT 94; BMI 29.0
== END 2023-03-04 09:09 | disposition home or self-care (01) ==
PROVIDERS: PCP Internal Medicine; Visit Provider Nurse Practitioner Family
DX: M54.16 Radiculopathy, lumbar region (principal); M51.36 Other intervertebral disc degeneration, lumbar region; M47.816 Spondylosis without myelopathy or radiculopathy, lumbar region; M62.830 Muscle spasm of back; M48.061 Spinal stenosis, lumbar region without neurogenic claudication
CPT/HCPCS: 99214

== ENCOUNTER 2023-03-04 09:41 | Outpatient (REF) | payer MEDICARE, SELFPAY ==
--- NOTE | ~2023-03-04 | CT_ITS ---
EXAMINATION: CT ABDOMEN AND PELVIS WITHOUT AND WITH CONTRAST CLINICAL INFORMATION: Microscopic hematuria COMPARISON: 03/31/2022 TECHNIQUE: Noncontrast CT of the abdomen and pelvis is performed followed by split bolus contrast-enhanced images using 85 mL Omnipaque 350 contrast.? Postcontrast imaging is performed during the combined nephrogram and excretion phase. Sagittal and coronal reformatted images were obtained on the technologist's workstation for both the precontrast and postcontrast phases. This CT examination was performed using dose optimization techniques as appropriate, variously including the following: *Automated exposure control *Adjustment of mA and/or kV according to patient size (this includes techniques or standardized protocols for targeted exams where dose is matched to indication/reason for exam; i.e. extremities or head) *Use of iterative reconstruction technique DLP: 1116 mGy-cm FINDINGS: LUNG BASES: The visualized lung bases are unremarkable. LIVER, GALLBLADDER, AND BILIARY TREE: The liver is normal in size, shape, and attenuation. No focal hepatic lesion or biliary ductal dilatation is present. The gallbladder contains several radiopaque gallstones. There is no gallbladder wall thickening, or obvious pericholecystic inflammatory changes. PANCREAS: Unremarkable. SPLEEN: Unremarkable. ADRENAL GLANDS: Unremarkable. KIDNEYS AND URETERS: The kidneys are normal in size, shape, and attenuation. No hydronephrosis or hydroureter seen. No perinephric stranding. No definite calculus is seen in the right kidney. No right renal masses are seen. In the lower pole of the left kidney there is irregular calcific density may represent a staghorn type calculus involving multiple calyces, or a group of calculi. The region of calcification measures 1.4 cm in diameter. There is a 5 mm hypodensity in the mid left kidney which is too small to characterize, likely representing a cyst. Following contrast administration, the collecting systems opacify normally. No ureteral lesion is seen. BLADDER: The bladder wall appears thickened, without focal abnormality. This may be accentuated by incomplete distention. GASTROINTESTINAL TRACT: No bowel dilatation or focal bowel inflammation is evident. There is mild colonic diverticulosis. The appendix is normal. ABDOMINAL WALL: No significant hernia is appreciated. LYMPH NODES: Normal. VASCULAR: Mild to moderate calcific plaque without aneurysmal dilatation. PELVIC VISCERA: The prostate is enlarged, measuring 5.2 x 4 x 3.5 cm. OSSEUS STRUCTURES: No fracture or lytic lesion is evident. Degenerative disc and facet disease in the lumbar spine. Changes in the femoral heads bilaterally consistent with avascular necrosis. CT/CT urogram IMPRESSION: There is an irregular calculus measuring 14 mm in diameter in the lower pole of the left kidney, not significantly changed. The bladder wall appears thickened without focal abnormality. The prostate is enlarged. Cholelithiasis without evidence of acute cholecystitis.
[2023-03-04] MEDS: iohexoL 350 MG/ML 100 ML INFUS..BTL 85 ML IV (10:52)
== END 2023-03-04 09:42 | disposition home or self-care (01) ==
LOC: HO.CT 09:41
PROVIDERS: PCP Internal Medicine; Visit Provider Nurse Practitioner Family
DX: N20.0 Calculus of kidney (principal); R31.29 Other microscopic hematuria; M54.16 Radiculopathy, lumbar region; M51.36 Other intervertebral disc degeneration, lumbar region; M47.816 Spondylosis without myelopathy or radiculopathy, lumbar region
CPT/HCPCS: 74178; 99212; Q9967

== ENCOUNTER 2023-03-11 14:10 | Outpatient (AMB) | payer MEDICARE, SELFPAY ==
--- NOTE | 2023-03-11 14:12 | A.OFFVIS_ITS ---
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 03/11/2023? He is followed today for cystoscopy procedure. He had seen Nurse Practitioner Miranda Gomes on 01/26/[address] urogram and PSA were ordered during that time. The patient was advised to follow-up in office Cystoscopy with imaging and labs to be completed prior; or sooner with any issues, concerns or questions during that time. I reviewed the CT urogram results from 03/04/2023 revealed an irregular calculus measuring 14 mm in diameter in the lower pole of the left kidney, not significantly changed. The bladder wall appears thickened without focal abnormality. The prostate is enlarged. ?? I reviewed the PSA results from 01/26/2023 revealed 2.08 ng/mL. Cystoscopy procedure: Consent was obtained to perform cystoscopy procedure. The patient was provided naproxen 500 mg, lidocaine 2 %, and ciprofloxacin 500 mg, x 1 dose pre-procedure today. Cystoscopy findings: Prostate noted some bilobar enlargement, moderate trabeculations noted. No suspicious bladder lesion found. Evaluation today?UA? leukocytes: negative; blood: 3 +. Plan: Discussed Left ESWL. Needs Pulmonary and Cardiology clearance for elective ESWL Needs to stop aspirin for 12 days prior tamsulosin 0.4 mg was ordered. Follow up with Nurse Practitioner Miranda Gomes in 3 months. [facility] Medical History Constipation Atherosclerotic cardiovascular disease Swelling of left lower extremity Vitamin B12 deficiency GERD without esophagitis Anterior chest wall pain Mixed hyperlipidemia Obesity (BMI 30-39.9) Primary insomnia Urinary frequency Neuropathy Vitamin D deficiency Osteoarthritis Lumbar degenerative disc disease Impaired fasting glucose Benign essential hypertension COPD (chronic obstructive pulmonary disease) Headache Epidermoid cyst Surgical History History of cardiac cath History of colonoscopy Family History Father Colon cancer Mother Medical history unknown Social History Housing: Apartment Alcohol intake: former Patient Tobacco Use Status: Current everyday Tobacco user Tobacco use type: Cigarette Cigarettes Per Day: 6 Years Smoked: 30 +/- e-Cigarette/Vaping Use: Never Used Second Hand Smoke Exposure: Yes service: No Current occupational status: disabled Cognitive needs: No Hearing needs: Yes Vision needs: Yes (reading glasses) Review of Systems Const Reports as per HPI Eyes Reports no additional complaints ENT Reports no additional complaints Card Reports as per HPI Resp Reports as per HPI GI Reports as per HPI Reports as per HPI Musc Reports as per HPI Neuro Reports as per HPI Psych Reports no additional complaints Physical Exam Const General: healthy appearing, no acute distress and well developed Orientation/consciousness: patient oriented x3 HEENT Head: Yes normocephalic and Yes atraumatic Eyes Conjunctivae: conjunctivae normal Neck Neck: Yes normal visual inspection Chest Chest palpation & inspection: normal inspection of the chest Resp Effort & Inspection: normal respiratory effort Cardio Rate: regular rate GI Inspection: Yes normal to inspection Palpation (GI): Soft to palpation Penis: normal penis Scrotum: scrotum normal Skin General skin exam: no rashes or lesions noted Neuro General: patient oriented x3 Extrem General: No pedal edema Psych Appearance: grossly normal Affect: normal affect Office Procedures Cystoscopy Consent Discussed risk and benefit or proposed procedure with the patient. Information consent for procedure given to the patient. Discussed technical aspects, risks, benefits and alternatives in full. Addressed all of the patient's questions and concerns regarding the procedure. The patient demonstrated knowledge and understanding. They wish to proceed with this procedure. Preparation The patient was prepped in the usual manner. A car retarder operator was present and in the room. Genitalia was prepped with betadine solution in a sterile manner. Lidocaine Jelly 2% was placed into the urethra and 16Fr flexible Olympus cystoscope was inserted into the meatus after adequate lubrication. Time out per protocol performed. Bladder Inspection Bladder Inspection: The bladder was inspected in its entirety with utilization retroflexion displaying: Tumor(s): none visualized Trabeculation: Moderate Mucosal Erthema: N/A Orifices: normal shape and position Urethra: normal Cystoscopy findings: prostatic urethra bilobar enlargement, moderate trabeculations noted. No suspicious bladder lesion found. [id number] DISPOSABLE SCOPE URO-G FLEXIBLE SCOPE Procedure code (CPT) selection complete Office Meds lidocaine HCl 2 % mucosal jelly in applicator Performing Provider: Dash Duarte MD Performing Location: [facility] Administered by: Litzy Hendricks RN on 03/11/23 14:39 Dose Route Admin Location Dispensed Lot Number Expiration Date ND Traffic Operations Engineer 10 mL intra-urethral 20 mL naproxen 500 mg tablet Performing Provider: Dash Duarte MD Performing Location: [facility] Administered by: Litzy Hendricks RN on 03/11/23 14:39 Dose Route Admin Location Dispensed Lot Number Expiration Date NDC Traffic Operations Engineer 500 mg PO 1 tab ciprofloxacin HCl 500 mg tablet Performing Provider: Dash Duarte MD Performing Location: [facility] Administered by: Litzy Hendricks RN on 03/11/23 14:39 Dose Route Admin Location Dispensed Lot Number Expiration Date NDC Traffic Operations Engineer 500 mg PO 1 tab Results AMB Urinalysis, Automated UA Leukoctes 0 Lila/uL Last Edit by VAL Borges on 03/11/23 14:27 UA Nitrite Negative Last Edit by VAL Borges on 03/11/23 14:27 UA Urobilinogen 0.2 mg/dL Last Edit by VAL Borges on 03/11/23 14:2 7 UA Protein 0 mg/dL Last Edit by VAL Borges on 03/11/23 14:27 UA pH 6.0 Last Edit by VAL Borges on 03/11/23 14:27 UA Blood 200 Kevin/uL Last Edit by VAL Borges on 03/11/23 14:27 3+ Wes Benedict 03/11/23 14:27 UA Specific [place] 1.020 Last Edit by VAL Borges on 03/11/23 14: 27 UA Ketone Negative Last Edit by VAL Borges on 03/11/23 14:27 UA Bilirubin 0 mg/dL Last Edit by VAL Borges on 03/11/23 14:27 UA Glucose 0 mg/dL Last Edit by VAL Borges on 03/11/23 14:27 Results Reviewed Results Reviewed: Laboratory Last Values Urine pH (Auto) 6.0 03/11/23 14:26 Specific [place] (Auto) 1.020 03/11/23 14:26 Urine Protein (Auto) 0 mg/dL 03/11/23 14:26 Glucose (UA)(Auto) 0 mg/dL 03/11/23 14:26 Urine Ketones (Auto) Negative 03/11/23 14:26 Urine Blood (Auto) 200 Kevin/uL 03/11/23 14:26 Urine Nitrite (Auto) Negative 03/11/23 14:26 Urine Bilirubin (Auto) 0 mg/dL 03/11/23 14:26 Urine Urobilinogen (Auto) 0.2 mg/dL 03/11/23 14:26 Leukocyte Esterase (Auto) 0 Lila/uL 03/11/23 14:26 Date of Service: 03/04/23 EXAMINATION: CT ABDOMEN AND PELVIS WITHOUT AND WITH CONTRAST?? CLINICAL INFORMATION: Microscopic hematuria?? COMPARISON: 03/31/2022? ?? FINDINGS: LUNG BASES: The visualized lung bases are unremarkable.?? LIVER, GALLBLADDER, AND BILIARY TREE: The liver is normal in size, shape, and attenuation. No focal hepatic lesion or biliary ductal dilatation is present. The gallbladder contains several radiopaque gallstones. There is no gallbladder wall thickening, or obvious pericholecystic inflammatory changes.?? PANCREAS: Unremarkable.?? SPLEEN: Unremarkable.?? ADRENAL GLANDS: Unremarkable.?? KIDNEYS AND URETERS: The kidneys are normal in size, shape, and attenuation. No hydronephrosis or hydroureter seen. No perinephric stranding. No definite calculus is seen in the right kidney. No right renal masses are seen. In the lower pole of the left kidney there is irregular calcific density may represent a staghorn type calculus involving multiple calyces, or a group of calculi. The region of calcification measures 1.4 cm in diameter. There is a 5 mm hypodensity in the mid left kidney which is too small to characterize, likely representing a cyst. Following contrast administration, the collecting systems opacify normally. No ureteral lesion is seen. BLADDER: The bladder wall appears thickened, without focal abnormality. This may be accentuated by incomplete distention.?? GASTROINTESTINAL TRACT: No bowel dilatation or focal bowel inflammation is evident. There is mild colonic diverticulosis. The appendix is normal.?? ABDOMINAL WALL: No significant hernia is appreciated.?? LYMPH NODES: Normal. VASCULAR: Mild to moderate calcific plaque without aneurysmal dilatation. PELVIC VISCERA: The prostate is enlarged, measuring 5.2 x 4 x 3.5 cm.?? OSSEUS STRUCTURES: No fracture or lytic lesion is evident. Degenerative disc and facet disease in the lumbar spine. Changes in the femoral heads bilaterally consistent with avascular necrosis.?? IMPRESSION: There is an irregular calculus measuring 14 mm in diameter in the lower pole of the left kidney, not significantly changed. The bladder wall appears thickened without focal abnormality. The prostate is enlarged. Cholelithiasis without evidence of acute cholecystitis.?? Assessment & Plan Assessment & Plan (1) Nicotine dependence: Code(s): F17.200 - Nicotine dependence, unspecified, uncomplicated (2) Nephrolithiasis: Code(s): N20.0 - Calculus of kidney (3) Microhematuria: Code(s): R31.29 - Other microscopic hematuria (4) Left renal stone: Code(s): N20.0 - Calculus of kidney (5) BPH loc w urin obs/LUTS: Code(s): N40.1 - Benign prostatic hyperplasia with lower urinary tract symptoms Plan Left ESWL. Needs Pulmonary and Cardiology clearance for elective ESWL Needs to stop aspirin for 12 days prior tamsulosin 0.4 mg was ordered.? Follow up with Nurse Practitioner Miranda Gomes in 3 months. Orders: Orders AMB Urinalysis Automated 03/11/23 Z13.9 - Encounter for screening, unspecified AMB Cystoscopy 03/11/23 R31.29 - Other microscopic hematuria, R35.0 - Frequency of micturition Patient Instructions: The patient had an opportunity to ask questions regarding treatment plan. All questions were answered. Imaging, Laboratory studies and physical exam results were discussed and reviewed in detail. No major barriers to understanding were identified. The patient expressed understanding and agreement with the above treatment plan.? ? ? The patient is aware they should contact our office by phone for worsening of their current condition or the appearance of new symptoms. Compliance is encouraged with any medications and followup testing that is ordered.? ? ? It is a privilege to be allowed the opportunity to participate in the urologic care of your patient. If you have any questions or concerns regarding treatment for the above conditions please do not hesitate to contact me. The office telephone contact is [phone].? ? ? This note is constructed in part using voice recognition software. While every effort has been made to ensure accuracy farm equipment mechanic apprentice errors may have been included.? ? ? Yours sincerely,? ? ? Dash Duarte MD? ? Coding Level of Care Code Est Pt Level 3 (94580) Diagnoses Nicotine dependence F17.200 Nephrolithiasis N20.0 Microhematuria R31.29 Left renal stone N20.0 BPH loc w urin obs/LUTS N40.1 CPT Codes Cystoscopy - CPT: 40111-[id number] ([id number])
== END 2023-03-11 15:33 | disposition home or self-care (01) ==
PROVIDERS: PCP Internal Medicine; Visit Provider Urology
DX: N40.1 Benign prostatic hyperplasia with lower urinary tract symptoms (principal); R31.29 Other microscopic hematuria; N20.0 Calculus of kidney; F17.200 Nicotine dependence, unspecified, uncomplicated
CPT/HCPCS: 52000; 99213

== ENCOUNTER → 2023-03-11 14:10 | Outpatient (BNVA) | payer MEDICARE, SELFPAY | PROVIDERS: PCP Internal Medicine; Visit Provider Urology | DX: N40.1 Benign prostatic hyperplasia with lower urinary tract symptoms (principal); R31.29 Other microscopic hematuria; N20.0 Calculus of kidney; F17.210 Nicotine dependence, cigarettes, uncomplicated | CPT/HCPCS: 52000; 81003; 99212 ==

== ENCOUNTER 2023-03-29 06:50 | Outpatient (REF) | payer MEDICARE, SELFPAY ==
[2023-03-29 07:04] LABS: MANUAL DIFF FLAG NO
[2023-03-29 07:17] LABS: Basophils Absolute Auto 0.1 X10*3/uL (0.0-0.2); Basophils Percent Auto 0.8 % (0-2); Eosinophils Absolute Auto 0.2 X10*3/uL (0.0-0.4); Eosinophils Percent Auto 2.6 % (0-4); Hematocrit 48.1 % (42.0-52.0); Hemoglobin 16.4 g/dl (14.0-18.0); Imm Gran Abs Auto 0.02 X10*3/uL (0.00-0.03); Imm Gran Pct Auto 0.3 % (0.0-0.4); Lymphocytes Absolute Auto 1.4 X10*3/uL (1.2-4.9); Lymphocytes Percent Auto 18.6 % (20-40); Mean Corpuscular HGB Conc 34.1 g/dl (31.0-36.0); Mean Corpuscular Hemoglobin 31.1 pg (27.0-33.0); Mean Corpuscular Volume 91.1 fL (80.0-98.0); Mean Platelet Volume 9.2 fL (9.4-12.4); Monocytes Absolute Auto 0.7 X10*3/uL (0.1-1.2); Monocytes Percent Auto 9.8 % (2-11); Neutrophils Percent Auto 67.9 % (45-73); Platelet Count 238 X10*3/uL (160-400); Red Blood Count 5.28 X10*6/uL (4.60-5.80); Red Cell Distribution Width 12.5 % (11.0-16.0); White Blood Count 7.4 X10*3/uL (4.8-10.8)
[2023-03-29 07:26] LABS: Estimated Average Glucose 97 mg/dL
[2023-03-29 07:51] LABS: Alanine Aminotransferase 20 U/L (0-40); Albumin Level 4.1 g/dL (3.5-5.0); Alkaline Phosphatase 116 U/L (39-117); Anion Gap 14 (12-20); Aspartate Amino Transferase 14 U/L (5-37); Bilirubin Total 0.7 mg/dL (0.0-1.0); Blood Urea Nitrogen 17 mg/dL (9-16); Calcium 9.3 mg/dL (8.4-10.2); Carbon Dioxide 25 mmol/L (22-29); Chloride 106 mmol/L (96-108); Cholesterol 95 mg/dL (<200); Estimated Glomerular Filt Rate > 60; Glucose Fasting 99 mg/dL (60-99); HDL Cholesterol 42 mg/dL (>40); LDL Cholesterol Calculated 41 mg/dL (<100); Sodium 141 mmol/L (135-145); Total Protein 6.9 g/dL (6.5-8.0); Triglycerides 64 mg/dL (<150)
[2023-03-29 08:01] LABS: TSH reflex Free T4 1.13 uIU/mL (0.32-4.0); Vitamin D 25-OH Total 52.2 ng/mL (>30)
[2023-03-29 09:29] LABS: Appearance Urine Clear; Color Urine Yellow; Glucose Urine UA Negative (Negative); Leukocyte Esterase Urine Negative (Negative); Nitrite Urine Negative (Negative); PH 6.5 (5.0-9.0); UMIC TRIGGER UACC YES; Urine Blood Trace (Negative); Urine Ketones Negative (Negative); Urine Protein Negative (Neg-Trace)
[2023-03-29 09:37] LABS: Bacteria Urine None Seen (None Seen); Hyaline Casts Urine 0-2 /LPF (0-2); Squamous Epithelial Cell Urine 0-2 /HPF (0-2); WBC Urine 0-5 /HPF (0-5)
== END 2023-03-29 06:51 | disposition home or self-care (01) ==
LOC: HO.LAB 06:50
PROVIDERS: PCP Internal Medicine; Visit Provider Internal Medicine
DX: E78.00 Pure hypercholesterolemia, unspecified (principal); I10 Essential (primary) hypertension; R73.01 Impaired fasting glucose; E55.9 Vitamin D deficiency, unspecified; R30.0 Dysuria
CPT/HCPCS: 36415; 80053; 80061; 81001; 82306; 83036; 84443; 85025

== ENCOUNTER 2023-03-30 15:29 | Outpatient (AMB) | payer MEDICARE, SELFPAY ==
[2023-03-30 15:30] VITALS: BP 126/82; PULSE 90; O2SAT 92; BMI 29.5
--- NOTE | 2023-03-30 15:30 | A.OFFPC_ITS ---
Vital Signs 03/30/23 15:30 Height 6 ft 1 in Weight 223 lb 4 oz BMI 29.5 BP 126/82 Blood Pressure Location Lt brachial Position Sitting Pulse 90 Pulse Source Pulse Oximeter Pulse Oximetry (%) 92 Oxygen Delivery Method Room Air Intake Visit Reasons: COPD, hyperlipidemia, HTN Pediatric Physician Required: No Accompanied by: Self / Same As Patient Allergies No Known Allergies Allergy (Verified 03/30/23 16:33) Medication List - Last Reconciled 03/30/23 by Sanju Disla MD albuterol sulfate 90 mcg/actuation (Ventolin HFA) 2 puffs inhalation Q6H PRN albuterol sulfate 2.5 mg (3 mL) continuous nebulization QID PRN amlodipine 5 mg PO DAILY aspirin 81 mg PO DAILY atorvastatin 80 mg PO DAILY bisacodyl (Gentle Laxative (bisacodyl)) 10 mg (2 x 5 mg) PO BEDTIME 2 days cholecalciferol (vitamin D3) (Vitamin D3) 25 mcg PO DAILY cyanocobalamin (vitamin B-12) 1,000 mcg PO DAILY docusate sodium 100 mg PO BEDTIME famotidine (Pepcid) 20 mg PO BEDTIME 90 days aqxyyikdyyh-davfhqmgd-yfqpvhbr 100-62.5-25 mcg (Trelegy Ellipta) 1 inh inhalation DAILY isosorbide mononitrate ER 30 mg PO DAILY lidocaine 5% 1 patch topical DAILY 30 days losartan 100 mg PO DAILY lubiprostone (Amitiza) 24 mcg PO BID magnesium citrate (Citrate of Magnesia oral) 150 mL PO DAILY PRN methocarbamol 500 mg PO BID PRN 30 days methylcellulose (laxative) (Citrucel) 500 mg PO DAILY nitroglycerin 0.4 mg sublingual Q5M PRN nystatin 500,000 units (5 mL) mucous membrane TID 10 days pantoprazole 40 mg PO DAILY roflumilast (Daliresp) 500 mcg PO DAILY tamsulosin 0.4 mg PO DAILY 30 days topiramate 25 mg PO DAILY Tobacco use date assessed: 03/30/23 Fall risk assessment: No Falls in past year Last assessed Fall Risk: 03/30/23 Dental Screening Dental Screen Date: 03/30/23 Did you have a dental visit in the last 12 months?: No Did you have a dental problem in the last 6 months where you did not have access to dental care?: No Was dental information given to patient?: Patient has dentist HPI COPD, hyperlipidemia, HTN HPI Details Patient comes in today for his follow up visit States that he feels okay Is scheduled for kidney stone extraction following ESWL sometime in early May [address] done revealed a persistent irregular 14 mm calculus in the lower pole of the left kidney but patient states that he currently has no pain over his left flank and has had no problems with urination He denies any headaches or dizziness Denies any chest pains, no increased SOB No nausea/vomiting, no abdominal pain No change in bowel habits noted Had his follow up labs done yesterday - to discuss his results [facility] Medical History Overweight (BMI 25.0-29.9) Constipation Atherosclerotic cardiovascular disease Swelling of left lower extremity Vitamin B12 deficiency GERD without esophagitis Anterior chest wall pain Mixed hyperlipidemia Obesity (BMI 30-39.9) Primary insomnia Urinary frequency Neuropathy Vitamin D deficiency Osteoarthritis Lumbar degenerative disc disease Impaired fasting glucose Benign essential hypertension COPD (chronic obstructive pulmonary disease) Headache Epidermoid cyst Surgical History History of cardiac cath History of colonoscopy Family History Father Colon cancer Mother Medical history unknown Social History Housing: Apartment Alcohol intake: former Patient Tobacco Use Status: Current everyday Tobacco user Tobacco use type: Cigarette Cigarettes Per Day: 6 Years Smoked: 30 +/- e-Cigarette/Vaping Use: Never Used Second Hand Smoke Exposure: Yes service: No Current occupational status: disabled Cognitive needs: No Hearing needs: Yes Vision needs: Yes (reading glasses) Questionnaire PHQ-9 Over the last 2 weeks, how often have you been bothered by any of the following problems? 1. Little interest or pleasure in doing things: not at all 2. Feeling down, depressed, or hopeless: not at all 3. Trouble falling or staying asleep, or sleeping too much: not at all 4. Feeling tired or having little energy: not at all 5. Poor appetite or overeating: not at all 6. Feeling bad about yourself - or that you are a failure or have let yourself or your family down: not at all 7. Trouble concentrating on things, such as reading the newspaper or watching television: not at all 8. Moving or speaking so slowly that other people could have noticed. Or the opposite - being so fidgety or restless that you have been moving around a lot more than usual: not at all 9. Thoughts that you would be better off or of hurting yourself in some way: not at all Total score: 0 Depression Screening Interpretation: Negative [id number] - PHQ-9 Billing: Yes Source: Developed by Drs. Ronald Vieira, Yomaira Craig, Sesar Stahl and colleagues, with an educational estelle from [employer]. Thrive Questionnaire Date Thrive assessed: 03/30/23 I am a: Patient What is your living situation today?: I have a steady place to live Within the past 12 months, did the food you bought not last and you didn't have the money to get more?: Never true Within the past 12 months, did you worry whether your food would run out before you got money to buy more?: Never true Do you have trouble paying for medicines?: No Do you have trouble getting transportation to medical appointments?: No Do you have trouble paying your heating and electricity bill?: No Do you have trouble taking care of your child, family member or friend?: No Do you have trouble with day-to-day activities such as bathing, preparing meals, shopping, managing finances, etc.?: No Are you currently unemployed and looking for a job?: No Are you interested in more education?: No Please select the resources that you would like help with: None Currently or been in a relationship where the following occur: no concerns reported AUDIT C Alcohol Use Questionnaire (AUDIT-C) 1. How often do you have a drink containing alcohol?: Never 3. How often do you have six or more drinks on one occasion?: Never Total Score: 0 Score Reviewed/Action Taken: Yes SUSIE-7 AMB Questionnaire SUSIE-7 Date SUSIE - 7 assessed: 03/30/23 Feeling nervous, anxious, or on edge: 0 = Not at all Not being able to stop or control worryin = Not at all Worrying too much about different things: 0 = Not at all Trouble relaxin = Not at all Being so restless that it is hard to sit still: 0 = Not at all Becoming easily annoyed or irritable: 0 = Not at all Feeling afraid as if something awful might happen: 0 = Not at all Total SUSIE-7 score (0-4 normal; 5-9 mild; 10-14 moderate; 15-21 severe): 0 Source: Developed by Drs. Ronald Vieira, Yomaira Craig, Sesar Stahl and colleagues, with an educational estelle from [employer]. Review of Systems Const Denies fatigue, Denies fever(s) and Denies headache(s) ENT Denies dysphagia, Denies dizziness, Denies otalgia, Denies headache(s), Denies neck pain, Denies odynophagia and Denies sore throat Card Denies chest pain, Denies palpitations and Reports dyspnea on exertion (mild) Resp Denies cough and Reports dyspnea on exertion (mild) GI Denies abdominal pain, Denies constipation, Denies dysphagia, Denies heartburn, Denies diarrhea, Denies nausea, Denies odynophagia and Denies vomiting Denies hematuria, Denies dysuria, Denies nocturia and Denies urinary frequency Musc Reports back pain (over the lower back - chronic) and Denies neck pain Skin/Breast Denies rash Neuro Denies dizziness and Denies headache(s) Endo Denies fatigue and Denies palpitations Glynn/Lymph Details: recurrent swelling of his left foot and ankle Physical exam (Primary Care) Vital Signs: Last Vital Signs Pulse 90 03/30/23 15:30 BP 126/82 03/30/23 15:30 Pulse Ox 92 03/30/23 15:30 Oxygen Delivery Method Room Air 03/30/23 15:30 BMI result Body Mass Index 29.5 Tobacco/Smoking Status: Tobacco use Status Tobacco use date assessed 03/30/23 03/30/23 15:32 Patient Tobacco Use Status Current everyday Tobacco 03/30/23 15:32 Tobacco use type Cigarette 03/30/23 15:32 e-Cigarette/Vaping Use Never Used 03/30/23 15:32 PHQ-9: PHQ-9 Score PHQ-9: Total score 0 03/30/23 15:57 Depression Screening Interpretation: Negative Thrive Assessment: Date of Thrive Assessment Date Thrive assessed 03/30/23 03/30/23 15:32 Currently or been in a relationship where the following occur: no concerns reported Const General: no acute distress and alert HENMT Ears: TM's normal bilaterally and EAC's normal Throat: Yes posterior oropharynx normal and Yes tonsils normal (no TP congestion noted) Neck Neck: Yes no lymphadenopathy and Yes supple Resp Auscultation: clear to auscultation bilaterally, no rales, no wheezes and diminished lung sounds (slightly) bilateral Cardio Rate: regular rate Rhythm: regular rhythm Heart sounds: no murmurs GI Palpation (GI): Soft to palpation and nontender Auscultation: normal bowel sounds General: Yes no CVA tenderness Back/Spine/Pelvis Back: no CVA tenderness Thoracic/Lumbar Spine: lumbar spinal tenderness Extrem General: Yes no clubbing, cyanosis or edema Results Reviewed Results Reviewed: Laboratory Tests 03/29/23 03/29/23 07:03 07:05 WBC 7.4 Hgb 16.4 Hct 48.1 Plt Count 238 Sodium 141 Potassium 4.0 Creatinine 1.10 Estimated GFR > 60 Fasting Glucose 99 Hemoglobin A1c % 5.0 Calcium 9.3 AST 14 ALT 20 Triglycerides 64 Cholesterol 95 LDL Cholesterol, Calc 41 HDL Cholesterol 42 25-OH Vitamin D Total 52.2 TSH 1.13 Ur Specific [place] 1.020 Urine Protein Negative Urine Glucose (UA) Negative Urine Blood Trace H Assessment and Plan Assessment & Plan (1) Atherosclerotic cardiovascular disease: Code(s): I25.10 - Atherosclerotic heart disease of koi coronary artery without angina pectoris Plan: Cardiac catheterization done a couple of years ago on 04/01/2021 revealed (+) subtotal occlusion of the right coronary artery with collaterals; no significant disease elsewhere Is currently on aggressive risk reduction and medical management with dual anti- platelet therapy, long-acting nitrates (Isosorbide mononitrate ER 30 mg QD) and high-dose statins Per cardiology, IF symptoms persist, will then consider intervention of the RCA disease Follow-up with cardiology as scheduled (2) Mixed hyperlipidemia: Code(s): E78.2 - Mixed hyperlipidemia Plan: Results of his labs done yesterday reviewed and discussed with patient - his lipids are at goal Reinforced low cholesterol diet Continue Atorvastatin 80 mg QD - was taken off Gemfibrozil and started on Atorvastatin after his cardiac cath a couple of years ago Will recheck his labs and fasting lipids in 4 months for follow up (3) Benign essential hypertension: Code(s): I10 - Essential (primary) hypertension Plan: Reinforced low-sodium diet -? goal is systolic BP of at least 120 to 130 mm or less Continue Losartan 100 mg QD and Amlodipine 5 mg QD (4) COPD (chronic obstructive pulmonary disease): Code(s): J44.9 - Chronic obstructive pulmonary disease, unspecified Qualifiers: COPD type: unspecified COPD Qualified Code(s): J44.9 - Chronic obstructive pulmonary disease, unspecified Plan: Low-dose CT done on 05/01/2021 revealed emphysematous disease and pulmonary parenchymal scarring without interval development of suspicious pulmonary nodule Continue Trelegy Ellipta 1 puff QD, Daliresp 500 mcg tablet once a day and Ventolin HFA 2 puffs 4 times a day as needed; patient also uses his nebulizer with Albuterol solution up to 4 times a day when needed Patient also has nocturnal hypoxemia and is encouraged to continue using his oxygen at night consistently when he is sleeping Follow-up with pulmonary (Dr. Jayshree Gibbs) as scheduled (5) Impaired fasting glucose: Code(s): R73.01 - Impaired fasting glucose Plan: Reinforced low calorie diet/exercise as tolerated HgbA1c was normal at 5.2% when checked previously; FBS was again normal at 99 mg/dl on his labs done yesterday (6) Nephrolithiasis: Code(s): N20.0 - Calculus of kidney Plan: Recent abdominal CT done revealed a persistent irregular 14 mm calculus in the lower pole of the left kidney Is scheduled for kidney stone extraction following ESWL sometime in early May 2023 Follow up with urology as scheduled (7) Osteoarthritis: Code(s): M19.90 - Unspecified osteoarthritis, unspecified site Qualifiers: Osteoarthritis location: unspecified site Osteoarthritis type: primary Qualified Code(s): M19.91 - Primary osteoarthritis, unspecified site Plan: States that his joint pains remain adequately controlled on Tramadol PRN (8) Lumbar degenerative disc disease: Code(s): M51.36 - Other intervertebral disc degeneration, lumbar region Plan: Reinforced activity and weight lifting restrictions Lumbar spine MRI done last month (February 2023) revealed (+) multilevel degenerative disc disease MRI revealed (+) mild to moderate spinal canal stenosis at L3-L4 with bilateral subarticular stenosis and compression of the exiting right more than left L3 nerve roots. At L4-L5, there is mild to moderate spinal canal stenosis, bilateral subarticular stenosis with compression of the traversing L5 nerve roots, and severe bilateral neural foraminal stenosis with compression of both exiting L4 nerve roots. There is severe bilateral neural foraminal stenosis with compression of both exiting L5 nerve roots at L5-S1 Continue Tramadol 50 mg 3 times a day with food as needed for back pain; Gabapentin also helps Follow up with pain management as scheduled (9) Neuropathy: Code(s): G62.9 - Polyneuropathy, unspecified Plan: Continue Gabapentin 300 mg BID EMG and NCV done back in June 2016 showed findings of aedx-lb-kqqjyksw axonal sensory and motor peripheral neuropathy Symptoms are currently reasonably controlled on Gabapentin and patient advised to call if his symptoms get worse (10) Vitamin D deficiency: Code(s): E55.9 - Vitamin D deficiency, unspecified Plan: Continue Vitamin D3 1000 units QD (11) Constipation: Code(s): K59.00 - Constipation, unspecified Qualifiers: Constipation type: chronic idiopathic constipation Qualified Code(s): K59.04 - Chronic idiopathic constipation Plan: Reinforced increased oral fluids and dietary fiber Continue Amitiza 24 mcg QD Follow-up with GI as scheduled (12) Primary insomnia: Code(s): F51.01 - Primary insomnia Plan: Sleep hygiene reinforced Continue Trazodone 50 mg once a day at bedtime as needed (13) Overweight (BMI 25.0-29.9): Code(s): E66.3 - Overweight Plan: Reinforced diet/lose weight; may exercise as tolerated but advised to stop immediately if he starts to experience increasing chest pain/pressure with activity as he has (+) CAD Plan Follow up in 4 months Orders: Orders Lipid Panel 4 Months E78.00 - Pure hypercholesterolemia, unspecified Complete Blood Count Auto Diff 4 Months I10 - Essential (primary) hypertension Comprehensive [place]. Panel Fast 4 Months E78.00 - Pure hypercholesterolemia, unspecified Coding Level of Care Code Est Pt Level 4 (40149) Diagnoses Atherosclerotic cardiovascular disease I25.10 Mixed hyperlipidemia E78.2 Benign essential hypertension I10 Chronic obstructive pulmonary disease, unspecified COPD type J44.9 COPD type: unspecified COPD Impaired fasting glucose R73.01 Nephrolithiasis N20.0 Primary osteoarthritis, unspecified site M19.91 Osteoarthritis location: unspecified site Osteoarthritis type: primary Lumbar degenerative disc disease M51.36 Neuropathy G62.9 Vitamin D deficiency E55.9 Chronic idiopathic constipation K59.04 Constipation type: chronic idiopathic constipation Primary insomnia F51.01 Overweight (BMI 25.0-29.9) E66.3
== END 2023-03-30 16:40 | disposition home or self-care (01) ==
PROVIDERS: Visit Provider Internal Medicine
DX: I10 Essential (primary) hypertension (principal); J44.9 Chronic obstructive pulmonary disease, unspecified; E55.9 Vitamin D deficiency, unspecified; I25.10 Atherosclerotic heart disease of native coronary artery without angina pectoris; E78.2 Mixed hyperlipidemia; R73.01 Impaired fasting glucose; N20.0 Calculus of kidney; M19.91 Primary osteoarthritis, unspecified site; M51.36 Other intervertebral disc degeneration, lumbar region; G62.9 Polyneuropathy, unspecified; K59.04 Chronic idiopathic constipation; F51.01 Primary insomnia
CPT/HCPCS: 99214

== ENCOUNTER 2023-04-13 14:30 | Outpatient (AMB) | payer MEDICARE, MEDICAID, SELFPAY ==
--- NOTE | 2023-04-13 14:53 | A.OFFVIS_ITS ---
Intake Vital Signs 04/13/23 14:55 Height 6 ft 1 in Weight 218 lb 4.122 oz BMI 28.8 BP 97/59 L Blood Pressure Location Lt brachial Position Sitting Pulse 86 Intake Visit Reasons: 6 month follow up Intake Note: Toby presents in the office as a 6 month follow up. CC: No concerns today just here for a follow up. Allergies No Known Allergies Allergy (Verified 04/20/23 12:41) Medication List - Last Reconciled 04/13/23 by AVERY AcostaP- albuterol sulfate 90 mcg/actuation (Ventolin HFA) 2 puffs inhalation Q6H PRN albuterol sulfate 2.5 mg (3 mL) continuous nebulization QID PRN amlodipine 5 mg PO DAILY aspirin 81 mg PO DAILY atorvastatin 80 mg PO DAILY bisacodyl (Gentle Laxative (bisacodyl)) 10 mg (2 x 5 mg) PO BEDTIME cholecalciferol (vitamin D3) (Vitamin D3) 25 mcg PO DAILY cyanocobalamin (vitamin B-12) 1,000 mcg PO DAILY docusate sodium 100 mg PO BEDTIME famotidine (Pepcid) 20 mg PO BEDTIME 90 days wiuxfisbxnn-wipkppyel-zgxnnxhm 200-62.5-25 mcg (Trelegy Ellipta) 1 ea inhalation DAILY isosorbide mononitrate ER 30 mg PO DAILY lidocaine 5% 1 patch topical DAILY 30 days losartan 100 mg PO DAILY methocarbamol 500 mg PO BID PRN 30 days methylcellulose (laxative) (Citrucel) 500 mg PO DAILY nitroglycerin 0.4 mg sublingual Q5M PRN nystatin 500,000 units (5 mL) mucous membrane TID 10 days pantoprazole 40 mg PO DAILY roflumilast (Daliresp) 500 mcg PO DAILY tamsulosin 0.4 mg PO DAILY topiramate 25 mg PO DAILY HPI 6 month follow up HPI Details LAST VISIT: Constipation Continue current med Colace and Dulcolax GERD without esophagitis Continue avoiding dietary triggers and late night snacking. Staying upright for minimum 3 hours after meals discussed with patient. Patient can continue pantoprazole in the morning and famotidine at bedtime. I will see patient in 6 months, sooner on as needed basis. Patient is agreeable to this plan and verbalizes understanding of instructions. He was given the opportunity to ask questions and all questions answered. ? TODAY'S VISIT Patient is here today for follow-up. Patient is accompanied by his daughter. Patient reports that since last time he has seen me he has been doing well. Takes pantoprazole in the morning and famotidine at bedtime only on as needed basis. Patient denies dyspepsia, dysphagia or odynophagia. Denies any postprandial abdominal pain or discomfort. Denies any melena, hematochezia, unintentional weight loss or ribbon like stools. Patient reports that he has been moving his bowels better now that he takes Colace and Dulcolax. Patient stopped taking Amitiza, reports that it was not working for him. Patient reports that he has been feeling fairly well. Continues to smoke cigarettes. Patient has last 37 lb since July of 2021. Patient reports that he is eating better. [facility] Medical History Overweight (BMI 25.0-29.9) Constipation Atherosclerotic cardiovascular disease Swelling of left lower extremity Vitamin B12 deficiency GERD without esophagitis Anterior chest wall pain Mixed hyperlipidemia Obesity (BMI 30-39.9) Primary insomnia Urinary frequency Neuropathy Vitamin D deficiency Osteoarthritis Lumbar degenerative disc disease Impaired fasting glucose Benign essential hypertension COPD (chronic obstructive pulmonary disease) Headache Epidermoid cyst Surgical History History of cardiac cath History of colonoscopy Family History Father Colon cancer Mother Medical history unknown Social History Housing: Apartment Alcohol intake: former Patient Tobacco Use Status: Current everyday Tobacco user Tobacco use type: Cigarette Cigarettes Per Day: 6 Years Smoked: 30 +/- e-Cigarette/Vaping Use: Never Used Second Hand Smoke Exposure: Yes service: No Current occupational status: disabled Cognitive needs: No Hearing needs: Yes Vision needs: Yes (reading glasses) Review of Systems Const Denies weight gain and Denies weight loss ENT Reports no additional complaints, Denies dysphagia and Denies odynophagia Card Reports no additional complaints Resp Reports no additional complaints GI Denies abdominal pain, Denies belching, Denies melena, Denies bloating, Denies change in bowel habits, Denies dysphagia, Denies excessive flatus, Denies dyspepsia, Denies heartburn, Denies diarrhea, Denies loose stools, Denies nausea, Denies odynophagia and Denies vomiting Reports no additional complaints Musc Reports no additional complaints Neuro Reports no additional complaints Psych Reports no additional complaints Endo Reports no additional complaints Physical Exam Vital Signs: Last Vital Signs Pulse 86 04/13/23 14:55 BP 97/59 L 04/13/23 14:55 BMI result Body Mass Index 28.8 Const General: no acute distress Nutritional Appearance: obese Orientation/consciousness: patient oriented x3 HEENT Head: Yes normal to inspection, Yes normocephalic and Yes atraumatic Face and sinus: Yes normal facial exam Mouth: Normal oral and palatal mucosa present Throat: Yes posterior oropharynx normal, Yes tonsils normal and Yes uvula midline Eyes General: appearance normal, both eyes and all related structures Neck Neck: Yes normal visual inspection, Yes full ROM and Yes trachea midline Thyroid: Thyroid normal Resp Effort & Inspection: normal respiratory effort, able to speak in complete sentences, no tracheal deviation and symmetric chest movement Auscultation: clear to auscultation bilaterally Cardio Rate: regular rate Heart sounds: S1 normal heart sound present and S2 normal heart sound present GI Inspection: Yes normal to inspection, No distended and Yes obesity Palpation (GI): Soft to palpation, not firm, nontender and No hepatosplenomegaly present Auscultation: normal bowel sounds General: Yes no CVA tenderness Back/Spine/Pelvis Back: no CVA tenderness Skin General skin exam: elasticity normal, turgor normal and dry skin Neuro General: patient oriented x3 Psych Appearance: grossly normal Mental Status: mental status grossly normal Assessment & Plan Assessment & Plan (1) Constipation: Code(s): K59.00 - Constipation, unspecified Qualifiers: Constipation type: chronic idiopathic constipation Qualified Code(s): K59.04 - Chronic idiopathic constipation (2) GERD without esophagitis: Code(s): K21.9 - Gastro-esophageal reflux disease without esophagitis Plan Continue avoiding dietary triggers. Patient can continue taking pantoprazole in the morning. Patient can continue taking famotidine on as needed basis at bedtime. Staying upright for minimum 3 hours after meals discussed with patient. Patient was encouraged to quit smoking. Patient can continue taking Dulcolax and Colace daily. I will see him in 6 months, sooner on as needed basis. Patient is agreeable to plan and verbalizes understanding of instructions. He was given the opportunity questions and all questions a nswered. Thank you for allowing me to participate in his care Medications: Changed From bisacodyl 10 mg (2 x 5 mg) PO BEDTIME 2 days 180 tabs 3RF To bisacodyl (Gentle Laxative (bisacodyl)) 10 mg (2 x 5 mg) PO BEDTIME 180 tabs 3RF Refilled pantoprazole take every morning 30 minutes before breakfast 40 mg PO DAILY 90 tabs 4RF K21.9 - Gastro-esophageal reflux disease without esophagitis docusate sodium 100 mg PO BEDTIME 90 caps 3RF K59.00 - Constipation, unspecified Discontinued magnesium citrate Discontinued Reason: Doctor's Order 150 mL PO DAILY PRN 296 mL 5RF constipation K59.00 - Constipation, unspecified lubiprostone Discontinued Reason: Doctor's Order 24 mcg PO BID 180 caps 3RF K59.00 - Constipation, unspecified Coding Level of Care Code Est Pt Level 3 (06232) Diagnoses Chronic idiopathic constipation K59.04 Constipation type: chronic idiopathic constipation GERD without esophagitis K21.9 Time Spent (min) 30 Comment 20 minutes spent with patient and additional 10 minutes spent reviewing his records
[2023-04-13 14:55] VITALS: BP 97/59; PULSE 86; BMI 28.8
== END 2023-04-13 15:40 | disposition home or self-care (01) ==
PROVIDERS: Visit Provider Nurse Practitioner Family
DX: K59.04 Chronic idiopathic constipation (principal); K21.9 Gastro-esophageal reflux disease without esophagitis
CPT/HCPCS: 99213

== ENCOUNTER → 2023-04-13 14:30 | Outpatient (BNVA) | payer MEDICARE, MEDICAID, SELFPAY | PROVIDERS: Visit Provider Nurse Practitioner Family | DX: K59.04 Chronic idiopathic constipation (principal); K21.9 Gastro-esophageal reflux disease without esophagitis | CPT/HCPCS: 99212 ==

== ENCOUNTER 2023-04-20 12:24 | Outpatient (AMB) | payer MEDICARE, MEDICAID, SELFPAY ==
--- NOTE | 2023-04-20 12:35 | MHC.OFFVIS ---
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 Accompanied by: Spouse Allergies No Known Allergies Allergy (Verified 04/20/23 12:41) Medication List - Last Reconciled 04/20/23 by Esdras Thorpe MD albuterol sulfate 90 mcg/actuation (Ventolin HFA) 2 puffs inhalation Q6H PRN albuterol sulfate 2.5 mg (3 mL) continuous nebulization QID PRN amlodipine 5 mg PO DAILY aspirin 81 mg PO DAILY atorvastatin 80 mg PO DAILY bisacodyl (Gentle Laxative (bisacodyl)) 10 mg (2 x 5 mg) PO BEDTIME cholecalciferol (vitamin D3) (Vitamin D3) 25 mcg PO DAILY cyanocobalamin (vitamin B-12) 1,000 mcg PO DAILY docusate sodium 100 mg PO BEDTIME famotidine (Pepcid) 20 mg PO BEDTIME 90 days liyqmkugscg-cjsfmsyll-mcfctpgu 200-62.5-25 mcg (Trelegy Ellipta) 1 ea inhalation DAILY isosorbide mononitrate ER 30 mg PO DAILY lidocaine 5% 1 patch topical DAILY 30 days losartan 100 mg PO DAILY methocarbamol 500 mg PO BID PRN 30 days methylcellulose (laxative) (Citrucel) 500 mg PO DAILY nitroglycerin 0.4 mg sublingual Q5M PRN nystatin 500,000 units (5 mL) mucous membrane TID 10 days pantoprazole 40 mg PO DAILY roflumilast (Daliresp) 500 mcg PO DAILY tamsulosin 0.4 mg PO DAILY topiramate 25 mg PO DAILY HPI HPI Comments History of Present Illness Details Toby returns for follow-up regarding coronary artery disease. He also has advanced COPD. He underwent cardiac catheterization that showed right coronary artery disease, but he was having lot of respiratory symptoms and coughing and hence no intervention was performed. Any case, he is generally getting around okay without any major concerns. No clear-cut angina. Shortness of breath is at baseline. Unfortunately, he still smokes. He was to come in a wheelchair in the past but today came in walking. He also needs preoperative evaluation for urology procedure for kidney stone. He is not really sure if he wants to go ahead with that or not. [facility] Medical History Overweight (BMI 25.0-29.9) Constipation Atherosclerotic cardiovascular disease Swelling of left lower extremity Vitamin B12 deficiency GERD without esophagitis Anterior chest wall pain Mixed hyperlipidemia Obesity (BMI 30-39.9) Primary insomnia Urinary frequency Neuropathy Vitamin D deficiency Osteoarthritis Lumbar degenerative disc disease Impaired fasting glucose Benign essential hypertension COPD (chronic obstructive pulmonary disease) Headache Epidermoid cyst Surgical History History of cardiac cath History of colonoscopy Family History Father Colon cancer Mother Medical history unknown Social History Housing: Apartment Alcohol intake: former Patient Tobacco Use Status: Current everyday Tobacco user Tobacco use type: Cigarette Cigarettes Per Day: 6 Years Smoked: 30 +/- e-Cigarette/Vaping Use: Never Used Second Hand Smoke Exposure: Yes service: No Current occupational status: disabled Cognitive needs: No Hearing needs: Yes Vision needs: Yes (reading glasses) Review of Systems Const Denies weakness ENT Denies dizziness Card Denies chest pain, Denies chest pain with activity, Denies syncope, Denies rapid heart rate, Denies pedal edema, Denies edema, Denies leg edema, Denies lightheadedness, Denies palpitations, Denies dyspnea, Denies dyspnea on exertion and Denies orthopnea Resp Denies cough, Denies dyspnea and Denies dyspnea on exertion GI Denies hematochezia and Denies change in stool character Musc Denies abnormal gait, Denies muscle cramps, Denies muscle weakness, Denies numbness, Denies radiating pain into limb and Denies tingling Neuro Denies abnormal gait, Denies dizziness, Denies syncope, Denies numbness, Denies tingling and Denies weakness Endo Denies palpitations Physical Exam Vital Signs: Last Vital Signs Pulse 91 04/20/23 12:40 BP 92/48 L 04/20/23 12:40 BMI result Body Mass Index 29.1 Const General: comfortable and no acute distress Orientation/consciousness: patient oriented x3 HEENT Other: Unremarkable Head: Yes normal to inspection Neck Neck: Yes normal visual inspection Chest Chest palpation & inspection: normal inspection of the chest Resp Auscultation: wheezes and diminished lung sounds Cardio Palpation: normal PMI Heart sounds: S1 normal heart sound present, S2 normal heart sound present, no gallops, no murmurs and no rubs GI Palpation (GI): Soft to palpation Back/Spine/Pelvis Other: unremarkable Skin General skin exam: no rashes or lesions noted Neuro General: patient oriented x3 Extrem General: Yes normal to inspection Psych Mental Status: mental status grossly normal Office Procedures EKG Details: EKG with sinus rhythm at 91/Min; right bundle-branch block pattern; [place]. [id number], Complete Assessment & Plan Assessment & Plan (1) Atherosclerotic cardiovascular disease: Code(s): I25.10 - Atherosclerotic heart disease of [place] coronary artery without angina pectoris (2) Essential hypertension: Code(s): I10 - Essential (primary) hypertension (3) Other and unspecified hyperlipidemia: Code(s): E78.5 - Hyperlipidemia, unspecified (4) Smoking: Code(s): F17.200 - Nicotine dependence, unspecified, uncomplicated (5) Morbid obesity: Code(s): E66.01 - Morbid (severe) obesity due to excess calories (6) COPD (chronic obstructive pulmonary disease): Code(s): J44.9 - Chronic obstructive pulmonary disease, unspecified Qualifiers: COPD type: unspecified COPD Qualified Code(s): J44.9 - Chronic obstructive pulmonary disease, unspecified (7) Preoperative cardiovascular examination: Code(s): Z01.810 - Encounter for preprocedural cardiovascular examination Plan Cardiac studies reviewed. Echocardiogram with normal LVEF, basal inferior akinesis. Dobutamine myocardial perfusion imaging study shows fixed inferior defect thought to be from prior infarct versus diaphragmatic attenuation versus some components of both. Cardiac catheterization shows subtotal occlusion of the right coronary artery with collaterals, no significant disease elsewhere. On medical therapy only. For medications, continue aspirin. Continue long-acting nitrates, losartan amlodipine. Blood pressures are on the lower side but he is not having any dizziness or presyncope. Could still continue, as some of these medications also have antianginal effects. Continue statins. Cholesterol is well controlled. We have discussed about smoking cessation numerous times but unlikely that he is going to stop. With regard to the urology procedure, he is at considerable risk because of underlying CAD but additionally because of advanced lung disease/COPD and continued smoking. Hence if able, avoid the procedure. Patient and significant other also leaning towards probably not doing it. Message sent to PCP about this. Follow-up in 6 months. Coding Level of Care Code Est Pt Level 4 (72310) Diagnoses Atherosclerotic cardiovascular disease I25.10 Essential hypertension I10 Other and unspecified hyperlipidemia E78.5 Smoking F17.200 Morbid obesity E66.01 Chronic obstructive pulmonary disease, unspecified COPD type J44.9 COPD type: unspecified COPD Preoperative cardiovascular examination Z01.810 CPT Codes EKG - CPT: 42555-[id number], Complete ([id number])
[2023-04-20 12:40] VITALS: BP 92/48; PULSE 91; BMI 29.1
== END 2023-04-20 13:09 | disposition home or self-care (01) ==
PROVIDERS: PCP Internal Medicine; Visit Provider Internal Medicine
DX: I25.10 Atherosclerotic heart disease of native coronary artery without angina pectoris (principal); I10 Essential (primary) hypertension; E78.5 Hyperlipidemia, unspecified; F17.200 Nicotine dependence, unspecified, uncomplicated; E66.01 Morbid (severe) obesity due to excess calories; J44.9 Chronic obstructive pulmonary disease, unspecified; Z01.810 Encounter for preprocedural cardiovascular examination
CPT/HCPCS: 93010; 99214

== ENCOUNTER → 2023-04-20 12:24 | Outpatient (BNVA) | payer MEDICARE, MEDICAID, SELFPAY | PROVIDERS: PCP Internal Medicine; Visit Provider Internal Medicine | DX: Z01.810 Encounter for preprocedural cardiovascular examination (principal); I25.10 Atherosclerotic heart disease of native coronary artery without angina pectoris; I10 Essential (primary) hypertension; E78.5 Hyperlipidemia, unspecified; J44.9 Chronic obstructive pulmonary disease, unspecified; E66.01 Morbid (severe) obesity due to excess calories; F17.210 Nicotine dependence, cigarettes, uncomplicated | CPT/HCPCS: 93005; 99212 ==

== ENCOUNTER 2023-06-08 13:37 | Outpatient (REF) | payer MEDICARE, SELFPAY ==
--- NOTE | ~2023-06-08 | US_ITS ---
EXAMINATION: US RETROPERITONEAL LIMITED (RENAL ONLY) CLINICAL INFORMATION: Calculus of kidney. COMPARISON: CT abdomen and pelvis without and with contrast 03/04/2023. TECHNIQUE: Real-time imaging of the kidneys. FINDINGS: RIGHT KIDNEY: 12.0 x 5.4 x 5.8 cm (SAG x AP x TRV). The kidney is normal in size, contour, and echogenicity. Renal cortical thickness is normal. No focal parenchymal lesions or hydronephrosis. 5 mm nonobstructing lower pole calculus. 3 mm midpole nonobstructing calculus. LEFT KIDNEY: 10.3 x 5.2 x 4.5 cm (SAG x AP x TRV). The kidney is normal in size, contour, and echogenicity. Renal cortical thickness is normal. No focal parenchymal lesions or hydronephrosis. 15 mm nonobstructing lower pole calculus. 13 mm lower pole nonobstructing calculus. US/US renal BI IMPRESSION: Bilateral nonobstructing renal calculi. No hydronephrosis.
== END 2023-06-08 13:38 | disposition home or self-care (01) ==
LOC: HO.US 13:37
PROVIDERS: PCP Internal Medicine; Visit Provider Nurse Practitioner Family
DX: N20.0 Calculus of kidney (principal)
CPT/HCPCS: 76775

== ENCOUNTER 2023-06-21 09:26 | Outpatient (AMB) | payer MEDICARE, MEDICAID, SELFPAY ==
--- NOTE | 2023-06-21 09:38 | MHC.OFFVIS ---
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 Accompanied by: Self / Same As Patient Allergies No Known Allergies Allergy (Verified 06/21/23 20:19) Medication List - Last Reconciled 06/21/23 by KEELY Reich-STEFANY albuterol sulfate 90 mcg/actuation (Ventolin HFA) 2 puffs inhalation Q6H PRN albuterol sulfate 2.5 mg (3 mL) continuous nebulization QID PRN amlodipine 5 mg PO DAILY aspirin 81 mg PO DAILY atorvastatin 80 mg PO DAILY bisacodyl (Gentle Laxative (bisacodyl)) 10 mg (2 x 5 mg) PO BEDTIME cholecalciferol (vitamin D3) (Vitamin D3) 25 mcg PO DAILY cyanocobalamin (vitamin B-12) 1,000 mcg PO DAILY docusate sodium 100 mg PO BEDTIME famotidine (Pepcid) 20 mg PO BEDTIME 90 days njiyldkzxsj-zssfaakof-eecwdilq 200-62.5-25 mcg (Trelegy Ellipta) 1 ea inhalation DAILY isosorbide mononitrate ER 30 mg PO DAILY lidocaine 5% 1 patch topical DAILY 30 days losartan 100 mg PO DAILY methocarbamol 500 mg PO BID PRN 30 days methylcellulose (laxative) (Citrucel) 500 mg PO DAILY nitroglycerin 0.4 mg sublingual Q5M PRN nystatin 500,000 units (5 mL) mucous membrane TID 10 days pantoprazole 40 mg PO DAILY roflumilast (Daliresp) 500 mcg PO DAILY tamsulosin 0.4 mg PO DAILY topiramate 25 mg PO DAILY HPI HPI Comments History of Present Illness Details Toby is a 63-year-old male patient of Dr. Ferrer. He has a past medical history of ACD, hypertension, constipation, COPD with oxygen dependence, GERD, headache, lumbar degenerative disc disease, hyperlipidemia, neuropathy, osteoarthritis, insomnia, and obesity. He presents to the office today for follow-up of his microscopic hematuria nephrolithiasis. Of note, patient was seen approximately 3 months ago by at which time he underwent an office cystoscopy for a history of nicotine dependence in the setting of microscopic hematuria. Cystoscopy findings with no suspicious bladder lesions found. Prostate noted some bilobed pillar enlargement and moderate trabeculations. Recommendations were made for left-sided ESWL for nephrolithiasis as CT results noting irregular calculus measuring 14 mm in diameter in the lower pole of the left kidney. However, patient was unable to obtain cardiac as well as pulmonary clearance due to his ongoing medical conditions. Discussed most recent renal ultrasound results with the patient today. Right kidney with no hydronephrosis or lesions. 5 mm nonobstructing lower pole calculus and 3 mm mid pole nonobstructing calculus. The left kidney with no lesions and or hydronephrosis. 15 mm nonobstructing lower pole calculus and 13 mm lower pole nonobstructing calculus noted. In discussion with the patient today regarding recent renal imaging results he reports to be following up with cardiology in approximately 1 month. However he does not believe he will be able to obtain cardiac and or pulmonary clearance as he feels his medical conditions are worsening. He reports having underwent cardiac catheterization that showed a blockage on the backside of his heart however reports he had been having respiratory symptoms during cardiac catheterization therefore nor intervention was able to be performed. When asked he continues to still be smoking daily. Discussed at length surgical intervention of nephrolithiasis verses surveillance monitoring. Discussed risks and benefits of surveillance monitoring versus surgical intervention at length. All questions were answered. In office urinalysis results reviewed with the patient today. He otherwise denies any bothersome urinary issues or concerns. He denies urinary urgency, urinary frequency, incontinence, nocturia, hematuria, dysuria, foul smelling urine, changes to urinary stream, flank pain, fever, and or chills. He is happy with his current voiding parameters. COUNT INCLUDES THE [facility] Medical History Overweight (BMI 25.0-29.9) Constipation Atherosclerotic cardiovascular disease Swelling of left lower extremity Vitamin B12 deficiency GERD without esophagitis Anterior chest wall pain Mixed hyperlipidemia Obesity (BMI 30-39.9) Primary insomnia Urinary frequency Neuropathy Vitamin D deficiency Osteoarthritis Lumbar degenerative disc disease Impaired fasting glucose Benign essential hypertension COPD (chronic obstructive pulmonary disease) Headache Epidermoid cyst Surgical History History of cardiac cath History of colonoscopy Family History Father Colon cancer Mother Medical history unknown Social History Housing: Apartment Alcohol intake: former Patient Tobacco Use Status: Current everyday Tobacco user Tobacco use type: Cigarette Cigarettes Per Day: 6 Years Smoked: 30 +/- e-Cigarette/Vaping Use: Never Used Second Hand Smoke Exposure: Yes service: No Current occupational status: disabled Cognitive needs: No Hearing needs: Yes Vision needs: Yes (reading glasses) Review of Systems Const Reports as per HPI Eyes Reports no additional complaints ENT Reports no additional complaints Card Reports as per HPI Resp Reports as per HPI GI Reports as per HPI Reports as per HPI Musc Reports as per HPI Neuro Reports as per HPI Psych Reports no additional complaints Physical Exam Const General: cooperative, comfortable, no acute distress, well developed, alert and awake Orientation/consciousness: patient oriented x3 Limitations: no limitations HEENT Head: Yes normal to inspection, Yes normocephalic and Yes atraumatic Ears: hearing grossly normal bilaterally Eyes General: appearance normal, both eyes and all related structures Neck Neck: Yes normal visual inspection and Yes trachea midline Chest Chest palpation & inspection: normal inspection of the chest Resp Effort & Inspection: normal respiratory effort, able to speak in complete sentences and audible wheezes Cardio Rate: regular rate GI Inspection: Yes normal to inspection General: Yes CVA tenderness (left side ) Back/Spine/Pelvis Back: CVA tenderness (left side ) Skin General skin exam: no rashes or lesions noted Neuro General: patient oriented x3 Extrem General: Yes normal to inspection Psych Appearance: grossly normal and well kempt Mental Status: mental status grossly normal Speech and movement: Normal speech and movement present and Clear speech present Affect: normal affect Attitude: cooperative Thought process: Normal thought process present Thought content: Normal thought content present Insight: Fair insight present (Psych) Judgement: Fair judgement present (Psych) Results AMB Urinalysis, Automated UA Leukoctes 0 Lila/uL Last Edit by Osvaldo Odom on 06/21/23 09:58 UA Nitrite Negative Last Edit by Joseycmaddie Odom on 06/21/23 09:58 UA Urobilinogen 0.2 mg/dL Last Edit by Joseyce Ilene on 06/21/23 09:58 UA Protein 0 mg/dL Last Edit by Brandjenny Breely on 06/21/23 09:58 UA pH 7.0 Last Edit by Osvaldo Odom on 06/21/23 09:58 UA Blood 0 Kevin/uL Last Edit by Osvaldo Odom on 06/21/23 09:58 UA Specific [place] 1.015 Last Edit by Osvaldo Odom on 06/21/23 09:58 UA Ketone Negative Last Edit by Osvaldo Odom on 06/21/23 09:58 UA Bilirubin 0 mg/dL Last Edit by Osvaldo Odom on 06/21/23 09:58 UA Glucose 0 mg/dL Last Edit by Osvaldo Odom on 06/21/23 09:58 Results Reviewed Results Reviewed: Laboratory Last Values Urine pH (Auto) 7.0 06/21/23 09:45 Specific [place] (Auto) 1.015 06/21/23 09:45 Urine Protein (Auto) 0 mg/dL 06/21/23 09:45 Glucose (UA)(Auto) 0 mg/dL 06/21/23 09:45 Urine Ketones (Auto) Negative 06/21/23 09:45 Urine Blood (Auto) 0 Kevin/uL 06/21/23 09:45 Urine Nitrite (Auto) Negative 06/21/23 09:45 Urine Bilirubin (Auto) 0 mg/dL 06/21/23 09:45 Urine Urobilinogen (Auto) 0.2 mg/dL 06/21/23 09:45 Leukocyte Esterase (Auto) 0 Lila/uL 06/21/23 09:45 Date of Service: 06/08/23 EXAMINATION: US RETROPERITONEAL LIMITED (RENAL ONLY) FINDINGS: RIGHT KIDNEY: 12.0 x 5.4 x 5.8 cm (SAG x AP x TRV). The kidney is normal in size, contour, and echogenicity. Renal cortical thickness is normal. No focal parenchymal lesions or hydronephrosis. 5 mm nonobstructing lower pole calculus. 3 mm midpole nonobstructing calculus. LEFT KIDNEY: 10.3 x 5.2 x 4.5 cm (SAG x AP x TRV). The kidney is normal in size, contour, and echogenicity. Renal cortical thickness is normal. No focal parenchymal lesions or hydronephrosis. 15 mm nonobstructing lower pole calculus. 13 mm lower pole nonobstructing calculus. IMPRESSION: Bilateral nonobstructing renal calculi. No hydronephrosis. Assessment & Plan Assessment & Plan (1) Nephrolithiasis: Code(s): N20.0 - Calculus of kidney (2) Nicotine dependence: Code(s): F17.200 - Nicotine dependence, unspecified, uncomplicated Plan In office urinalysis results reviewed with the patient today. Patient with a previous history of microscopic hematuria however no microscopic hematuria noted on UA today and patient with previous in office cystoscopy noting no bladder tumors and or lesions. Recent renal imaging results reviewed with the patient today; as noted above. Discussed at length surveillance monitoring given patient poor candidate for surgical intervention. Discussed at length surveillance monitoring verses surgical intervention; discussed risks and benefits at length; all questions were answered Patient currently denies any bothersome urinary issues or concerns. He is happy with current voiding parameters. Discussed and educated on the importance of limiting/quitting smoking for overall health and well-being. Will obtain KUB in 3 months. Will obtain PSA in 3 months. Follow-up in 3 months with labs and imaging to be completed prior; or sooner with any issues, concerns, and or questions. Orders: Orders AMB Urinalysis Automated Today Z13.9 - Encounter for screening, unspecified XR KUB 3 Months N20.0 - Calculus of kidney Prostate Specific Antigen 3 Months N40.0 - Benign prostatic hyperplasia without lower urinary tract symptoms Patient Instructions: The patient had an opportunity to ask questions regarding the treatment plan. All questions were answered. Physical exam, labs, and imaging were discussed and reviewed in detail. As well as risks, benefits, and discussion of treatment choices. No major barriers to understanding were identified. The patient expressed understanding and agreement with the above treatment plan. The patient was made aware they should contact our office by phone for worsening of their current condition, the appearance of new symptoms, or with any questions or concerns. Compliance is encouraged with any medications and follow up testing that is ordered. It is a privilege to be allowed the opportunity to participate in? your urological care.? Again, if you have any questions or concerns If you have any questions or concerns please do not hesitate to contact me. The office is [phone]. This note is constructed using voice recognition software. While every effort has been made to ensure accuracy brass instrument repair technician errors may have been included. Yours sincerely, Miranda Gomes, HOME HEALTH LPN-BC Coding Level of Care Code Est Pt Level 3 (02416) Diagnoses Nephrolithiasis N20.0 Nicotine dependence F17.200
== END 2023-06-21 10:08 | disposition home or self-care (01) ==
LOC: HO.HUSH 09:26
PROVIDERS: PCP Internal Medicine; Visit Provider Nurse Practitioner Family
DX: N20.0 Calculus of kidney (principal); F17.200 Nicotine dependence, unspecified, uncomplicated
CPT/HCPCS: 99213

== ENCOUNTER → 2023-06-21 09:26 | Outpatient (BNVA) | payer MEDICARE, MEDICAID, SELFPAY | PROVIDERS: PCP Internal Medicine; Visit Provider Nurse Practitioner Family | DX: N20.0 Calculus of kidney (principal); F17.210 Nicotine dependence, cigarettes, uncomplicated | CPT/HCPCS: 81003; 99212 ==

== ENCOUNTER 2023-07-26 06:35 | Outpatient (REF) | payer MEDICARE, SELFPAY ==
[2023-07-26 06:53] LABS: MANUAL DIFF FLAG NO
[2023-07-26 07:07] LABS: Basophils Percent Auto 0.5 % (0-2); Eosinophils Absolute Auto 0.2 X10*3/uL (0.0-0.4); Eosinophils Percent Auto 2.2 % (0-4); Hematocrit 47.1 % (42.0-52.0); Hemoglobin 16.1 g/dl (14.0-18.0); Imm Gran Abs Auto 0.02 X10*3/uL (0.00-0.03); Imm Gran Pct Auto 0.3 % (0.0-0.4); Lymphocytes Absolute Auto 1.3 X10*3/uL (1.2-4.9); Lymphocytes Percent Auto 17.1 % (20-40); Mean Corpuscular HGB Conc 34.2 g/dl (31.0-36.0); Mean Corpuscular Hemoglobin 30.4 pg (27.0-33.0); Mean Platelet Volume 8.9 fL (9.4-12.4); Monocytes Absolute Auto 0.7 X10*3/uL (0.1-1.2); Neutrophils Absolute Auto 5.3 x10*3/uL (2.0-8.3); Neutrophils Percent Auto 70.9 % (45-73); Platelet Count 239 X10*3/uL (160-400); Red Blood Count 5.29 X10*6/uL (4.60-5.80); Red Cell Distribution Width 12.3 % (11.0-16.0); White Blood Count 7.4 X10*3/uL (4.8-10.8)
[2023-07-26 07:30] LABS: Alanine Aminotransferase 21 U/L (0-40); Albumin Level 4.1 g/dL (3.5-5.0); Alkaline Phosphatase 105 U/L (39-117); Anion Gap 9 (12-20); Aspartate Amino Transferase 17 U/L (5-37); Bilirubin Total 0.7 mg/dL (0.0-1.0); Blood Urea Nitrogen 20 mg/dL (9-16); Calcium 9.5 mg/dL (8.4-10.2); Carbon Dioxide 28 mmol/L (22-29); Chloride 107 mmol/L (96-108); Cholesterol 102 mg/dL (<200); Estimated Glomerular Filt Rate > 60; Glucose Fasting 99 mg/dL (60-99); HDL Cholesterol 35 mg/dL (>40); LDL Cholesterol Calculated 55 mg/dL (<100); Potassium 4.1 mmol/L (3.3-5.1); Sodium 140 mmol/L (135-145); Total Protein 7.1 g/dL (6.5-8.0); Triglycerides 63 mg/dL (<150)
[2023-07-26 07:45] LABS: Appearance Urine Clear; Color Urine Yellow; Glucose Urine UA Negative (Negative); Leukocyte Esterase Urine Negative (Negative); Nitrite Urine Negative (Negative); PH 5.5 (5.0-9.0); Specific Gravity - Urine 1.025 (1.005-1.025); UMIC TRIGGER UACC YES; Urine Blood Trace (Negative); Urine Ketones Negative (Negative); Urine Protein Negative (Neg-Trace)
[2023-07-26 07:50] LABS: Bacteria Urine None Seen (None Seen); Hyaline Casts Urine 0-2 /LPF (0-2); Squamous Epithelial Cell Urine 0-2 /HPF (0-2); WBC Urine 0-5 /HPF (0-5)
== END 2023-07-26 06:36 | disposition home or self-care (01) ==
LOC: HO.LAB 06:35
PROVIDERS: PCP Internal Medicine; Visit Provider Internal Medicine
DX: E78.00 Pure hypercholesterolemia, unspecified (principal); I10 Essential (primary) hypertension
CPT/HCPCS: 36415; 80053; 80061; 81001; 85025

== ENCOUNTER 2023-07-27 14:31 | Outpatient (AMB) | payer MEDICARE, SELFPAY ==
--- NOTE | 2023-07-27 14:32 | MHC.PC.OV ---
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: No Accompanied by: Self / Same As Patient Allergies No Known Allergies Allergy (Verified 07/27/23 15:13) Medication List - Last Reconciled 07/27/23 by Sanju Disla MD albuterol sulfate 90 mcg/actuation (Ventolin HFA) 2 puffs inhalation Q6H PRN albuterol sulfate 2.5 mg (3 mL) continuous nebulization QID PRN amlodipine 5 mg PO DAILY aspirin 81 mg PO DAILY atorvastatin 80 mg PO DAILY bisacodyl (Gentle Laxative (bisacodyl)) 10 mg (2 x 5 mg) PO BEDTIME cholecalciferol (vitamin D3) (Vitamin D3) 25 mcg PO DAILY cyanocobalamin (vitamin B-12) 1,000 mcg PO DAILY docusate sodium 100 mg PO BEDTIME famotidine (Pepcid) 20 mg PO BEDTIME 90 days qqoftmveagn-qiwteovdf-rkbixgqc 200-62.5-25 mcg (Trelegy Ellipta) 1 ea inhalation DAILY isosorbide mononitrate ER 30 mg PO DAILY lidocaine 5% 1 patch topical DAILY 30 days losartan 100 mg PO DAILY methocarbamol 500 mg PO BID PRN 30 days methylcellulose (laxative) (Citrucel) 500 mg PO DAILY nitroglycerin 0.4 mg sublingual Q5M PRN nystatin 500,000 units (5 mL) mucous membrane TID 10 days pantoprazole 40 mg PO DAILY roflumilast (Daliresp) 500 mcg PO DAILY tamsulosin 0.4 mg PO DAILY topiramate 25 mg PO DAILY Tobacco use date assessed: 07/27/23 Fall risk assessment: No Falls in past year Last assessed Fall Risk: 07/27/23 Dental Screening Dental Screen Date: 07/27/23 Did you have a dental visit in the last 12 months?: Yes Did you have a dental problem in the last 6 months where you did not have access to dental care?: No Was dental information given to patient?: Patient has dentist HPI CAD, COPD, hyperlipidemia HPI Details Patient comes in today for his follow up visit States that he feels okay He denies any headaches or dizziness Denies any chest pains, no increased SOB No nausea/vomiting, no abdominal pain No change in bowel habits noted Had his follow up labs done yesterday - to discuss his results [facility] Medical History (Updated 07/27/23 @ 15:41 by Sanju Disla MD) Overweight (BMI 25.0-29.9) Constipation Atherosclerotic cardiovascular disease Swelling of left lower extremity Vitamin B12 deficiency GERD without esophagitis Anterior chest wall pain Mixed hyperlipidemia Primary insomnia Urinary frequency Neuropathy Vitamin D deficiency Osteoarthritis Lumbar degenerative disc disease Impaired fasting glucose Benign essential hypertension COPD (chronic obstructive pulmonary disease) Headache Epidermoid cyst Surgical History History of cardiac cath History of colonoscopy Family History Father Colon cancer Mother Medical history unknown Social History Housing: Apartment Alcohol intake: former Patient Tobacco Use Status: Current everyday Tobacco user Tobacco use type: Cigarette Cigarettes Per Day: 6 Years Smoked: 30 +/- e-Cigarette/Vaping Use: Never Used Second Hand Smoke Exposure: Yes service: No Current occupational status: disabled Cognitive needs: No Hearing needs: Yes Vision needs: Yes (reading glasses) Questionnaire PHQ-9 Over the last 2 weeks, how often have you been bothered by any of the following problems? 1. Little interest or pleasure in doing things: not at all 2. Feeling down, depressed, or hopeless: not at all 3. Trouble falling or staying asleep, or sleeping too much: not at all 4. Feeling tired or having little energy: not at all 5. Poor appetite or overeating: not at all 6. Feeling bad about yourself - or that you are a failure or have let yourself or your family down: not at all 7. Trouble concentrating on things, such as reading the newspaper or watching television: not at all 8. Moving or speaking so slowly that other people could have noticed. Or the opposite - being so fidgety or restless that you have been moving around a lot more than usual: not at all 9. Thoughts that you would be better off or of hurting yourself in some way: not at all Total score: 0 Depression Screening Interpretation: Negative Depression Screening Done: Yes 30923 - PHQ-9 Billing: Yes Source: Developed by Drs. Ronald Vieira, Yomaira Craig, Sesar Stahl and colleagues, with an educational estelle from [employer]. Thrive Questionnaire Date Thrive assessed: 07/27/23 I am a: Patient What is your living situation today?: I have a steady place to live Within the past 12 months, did the food you bought not last and you didn't have the money to get more?: Never true Within the past 12 months, did you worry whether your food would run out before you got money to buy more?: Never true Do you have trouble paying for medicines?: No Do you have trouble getting transportation to medical appointments?: No Do you have trouble paying your heating and electricity bill?: No Do you have trouble taking care of your child, family member or friend?: No Do you have trouble with day-to-day activities such as bathing, preparing meals, shopping, managing finances, etc.?: No Are you currently unemployed and looking for a job?: No Are you interested in more education?: No Please select the resources that you would like help with: None Currently or been in a relationship where the following occur: no concerns reported THRIVE Score: 0 AUDIT C Alcohol Use Questionnaire (AUDIT-C) 1. How often do you have a drink containing alcohol?: Never 3. How often do you have six or more drinks on one occasion?: Never Total Score: 0 Score Reviewed/Action Taken: Yes SUSIE-7 AMB Questionnaire SUSIE-7 Date SUSIE - 7 assessed: 07/27/23 Feeling nervous, anxious, or on edge: 0 = Not at all Not being able to stop or control worryin = Not at all Worrying too much about different things: 0 = Not at all Trouble relaxin = Not at all Being so restless that it is hard to sit still: 0 = Not at all Becoming easily annoyed or irritable: 0 = Not at all Feeling afraid as if something awful might happen: 0 = Not at all Total SUSIE-7 score (0-4 normal; 5-9 mild; 10-14 moderate; 15-21 severe): 0 Source: Developed by Drs. Ronald Vieira, Yomaira Craig, Sesar Stahl and colleagues, with an educational estelle from [employer]. Review of Systems Const Denies chills, Reports fatigue (mild), Denies fever(s) and Denies headache(s) ENT Denies dysphagia, Denies dizziness, Denies otalgia, Denies headache(s), Denies neck pain, Denies odynophagia and Denies sore throat Card Denies chest pain, Denies palpitations and Reports dyspnea on exertion (mild) Resp Reports cough (occasional; coughs up thick whitish phlegm at times), Reports dyspnea on exertion (mild) and Denies wheezing GI Denies abdominal pain, Denies constipation, Denies dysphagia, Denies heartburn, Denies diarrhea, Denies nausea, Denies odynophagia and Denies vomiting Denies hematuria, Denies dysuria, Denies nocturia and Denies urinary frequency Musc Reports back pain (over the lower back - chronic) and Denies neck pain Skin/Breast Denies rash Neuro Denies dizziness and Denies headache(s) Endo Reports fatigue (mild) and Denies palpitations Glynn/Lymph Details: recurrent swelling of his left foot and ankle Aller/Immun Denies wheezing Physical exam (Primary Care) Vital Signs: Last Vital Signs Pulse 64 07/27/23 14:34 BP 122/64 07/27/23 14:34 Pulse Ox 93 07/27/23 14:34 Oxygen Delivery Method Room Air 07/27/23 14:34 BMI result Body Mass Index 29.6 Tobacco/Smoking Status: Tobacco use Status Tobacco use date assessed 07/27/23 07/27/23 14:41 Patient Tobacco Use Status Current everyday Tobacco 07/27/23 14:41 Tobacco use type Cigarette 07/27/23 14:41 e-Cigarette/Vaping Use Never Used 07/27/23 14:41 PHQ-9: PHQ-9 Score PHQ-9: Total score 0 07/27/23 14:41 Depression Screening Interpretation: Negative Thrive Assessment: Date of Thrive Assessment Date Thrive assessed 07/27/23 07/27/23 14:41 Currently or been in a relationship where the following occur: no concerns reported Const General: no acute distress and alert HENMT Ears: TM's normal bilaterally and EAC's normal Throat: Yes posterior oropharynx normal and Yes tonsils normal (no TP congestion noted) Neck Neck: Yes no lymphadenopathy and Yes supple Resp Auscultation: no rales, no wheezes and diminished lung sounds (significantly) bilateral Cardio Rate: regular rate Rhythm: regular rhythm Heart sounds: no murmurs GI Palpation (GI): Soft to palpation and nontender Auscultation: normal bowel sounds General: Yes no CVA tenderness Back/Spine/Pelvis Back: no CVA tenderness Thoracic/Lumbar Spine: lumbar spinal tenderness Extrem General: Yes no clubbing, cyanosis or edema Results Reviewed Results Reviewed: Laboratory Tests 07/26/23 07/26/23 07/26/23 06:51 06:51 06:51 WBC 7.4 Hgb 16.1 Hct 47.1 Plt Count 239 Sodium 140 Potassium 4.1 Creatinine 1.17 Estimated GFR > 60 Fasting Glucose 99 Calcium 9.5 AST 17 ALT 21 Triglycerides 63 Cholesterol 102 LDL Cholesterol, Calc 55 HDL Cholesterol 35 L Urine pH Ur Specific [place] Urine Protein Urine Glucose (UA) Urine Blood Urine Nitrite 07/26/23 07/26/23 06:55 06:55 WBC Hgb Hct Plt Count Sodium Potassium Creatinine Estimated GFR Fasting Glucose Calcium AST ALT Triglycerides Cholesterol LDL Cholesterol, Calc HDL Cholesterol Urine pH 5.5 Ur Specific [place] 1.025 Urine Protein Negative Urine Glucose (UA) Negative Urine Blood Trace H Urine Nitrite Negative Assessment and Plan Assessment & Plan (1) Atherosclerotic cardiovascular disease: Code(s): I25.10 - Atherosclerotic heart disease of [place] coronary artery without angina pectoris Plan: Cardiac catheterization done a couple of years ago on 04/01/2021 revealed (+) subtotal occlusion of the right coronary artery with collaterals; no significant disease elsewhere Is currently still on aggressive risk reduction and medical management with dual anti-platelet therapy, long-acting nitrates (Isosorbide mononitrate ER 30 mg QD) and high-dose statins Per cardiology, IF symptoms persist or progress, will then consider intervention of his RCA disease Follow-up with cardiology as scheduled (2) Mixed hyperlipidemia: Code(s): E78.2 - Mixed hyperlipidemia Plan: Results of his labs done yesterday reviewed and discussed with patient - his lipids remain at goal Reinforced low cholesterol diet Continue Atorvastatin 80 mg QD - was taken off Gemfibrozil and started on Atorvastatin after his cardiac cath a couple of years ago Will recheck his labs and fasting lipids in 4 months for follow up (3) Benign essential hypertension: Code(s): I10 - Essential (primary) hypertension Plan: Reinforced low-sodium diet -? goal is systolic BP of at least 120 to 130 mm or less Continue Losartan 100 mg QD and Amlodipine 5 mg QD (4) COPD (chronic obstructive pulmonary disease): Code(s): J44.9 - Chronic obstructive pulmonary disease, unspecified Qualifiers: COPD type: unspecified COPD Qualified Code(s): J44.9 - Chronic obstructive pulmonary disease, unspecified Plan: Low-dose CT done on 05/01/2021 revealed emphysematous disease and pulmonary parenchymal scarring without interval development of suspicious pulmonary nodule Continue Trelegy Ellipta 1 puff QD, Daliresp 500 mcg tablet once a day and Ventolin HFA 2 puffs 4 times a day as needed; patient also uses his nebulizer with Albuterol solution up to 4 times a day when needed Will also have patient try taking Mucinex ER 600 mg tablet BID PRN to help loosen up his phlegm and make it easier for him to cough up his phlegm Patient also has nocturnal hypoxemia and is encouraged to continue using his oxygen at night consistently when he is sleeping Follow-up with pulmonary (Dr. Jayshree Gibbs) as scheduled (5) Impaired fasting glucose: Code(s): R73.01 - Impaired fasting glucose Plan: Reinforced low calorie diet/exercise as tolerated HgbA1c was normal at 5.2% when checked previously; FBS was again normal at 99 mg/dl on his labs done yesterday (6) Nephrolithiasis: Code(s): N20.0 - Calculus of kidney Plan: Most recent abdominal CT done revealed a persistent irregular 14 mm calculus in the lower pole of the left kidney He was originally scheduled for kidney stone extraction following ESWL sometime in early May 2023 but it looks like patient never got this done Follow up with urology as scheduled (7) Osteoarthritis: Code(s): M19.90 - Unspecified osteoarthritis, unspecified site Qualifiers: Osteoarthritis location: unspecified site Osteoarthritis type: primary Qualified Code(s): M19.91 - Primary osteoarthritis, unspecified site Plan: States that his joint pains remain adequately controlled on Tramadol PRN (8) Lumbar degenerative disc disease: Code(s): M51.36 - Other intervertebral disc degeneration, lumbar region Plan: Reinforced activity and weight lifting restrictions Lumbar spine MRI done last month (February 2023) revealed (+) multilevel degenerative disc disease MRI revealed (+) mild to moderate spinal canal stenosis at L3-L4 with bilateral subarticular stenosis and compression of the exiting right more than left L3 nerve roots. At L4-L5, there is mild to moderate spinal canal stenosis, bilateral subarticular stenosis with compression of the traversing L5 nerve roots, and severe bilateral neural foraminal stenosis with compression of both exiting L4 nerve roots. 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 Symptoms are currently reasonably controlled on Gabapentin and patient is advised to call if his symptoms get worse (10) Vitamin D deficiency: Code(s): E55.9 - Vitamin D deficiency, unspecified Plan: Continue Vitamin D3 1000 units QD (11) Constipation: Code(s): K59.00 - Constipation, unspecified Qualifiers: Constipation type: chronic idiopathic constipation Qualified Code(s): K59.04 - Chronic idiopathic constipation Plan: Reinforced increased oral fluids and dietary fiber Continue Amitiza 24 mcg QD Follow-up with GI as scheduled (12) Primary insomnia: Code(s): F51.01 - Primary insomnia Plan: Sleep hygiene reinforced Continue Trazodone 50 mg once a day at bedtime as needed (13) Overweight (BMI 25.0-29.9): Code(s): E66.3 - Overweight Plan: Reinforced diet/lose weight; may exercise as tolerated but advised to stop immediately if he starts to experience increasing chest pain/pressure with activity as he has (+) CAD Plan Follow up in 4 months Orders: Orders Complete Blood Count Auto Diff 4 Months D64.9 - Anemia, unspecified Comprehensive [place]. Panel Fast 4 Months E78.00 - Pure hypercholesterolemia, unspecified Lipid Panel 4 Months E78.00 - Pure hypercholesterolemia, unspecified TSH reflex Free T4 4 Months E78.00 - Pure hypercholesterolemia, unspecified UA CC w/rflx Micro + Cult 4 Months R30.0 - Dysuria Vitamin D 25-OH Total 4 Months E55.9 - Vitamin D deficiency, unspecified Hemoglobin A1c 4 Months R73.01 - Impaired fasting glucose Medications: New guaifenesin ER (Mucinex) 600 mg PO Q12H PRN 60 tabs 3RF congestion Coding Level of Care Code Est Pt Level 4 (81959) Diagnoses Atherosclerotic cardiovascular disease I25.10 Mixed hyperlipidemia E78.2 Benign essential hypertension I10 Chronic obstructive pulmonary disease, unspecified COPD type J44.9 COPD type: unspecified COPD Impaired fasting glucose R73.01 Nephrolithiasis N20.0 Primary osteoarthritis, unspecified site M19.91 Osteoarthritis location: unspecified site Osteoarthritis type: primary Lumbar degenerative disc disease M51.36 Neuropathy G62.9 Vitamin D deficiency E55.9 Chronic idiopathic constipation K59.04 Constipation type: chronic idiopathic constipation Primary insomnia F51.01 Overweight (BMI 25.0-29.9) E66.3
[2023-07-27 14:34] VITALS: BP 122/64; PULSE 64; O2SAT 93; BMI 29.6
== END 2023-07-27 15:20 | disposition home or self-care (01) ==
PROVIDERS: PCP Internal Medicine; Visit Provider Internal Medicine
DX: I25.10 Atherosclerotic heart disease of native coronary artery without angina pectoris (principal); E78.2 Mixed hyperlipidemia; I10 Essential (primary) hypertension; J44.9 Chronic obstructive pulmonary disease, unspecified; R73.01 Impaired fasting glucose; N20.0 Calculus of kidney; M19.91 Primary osteoarthritis, unspecified site; M51.36 Other intervertebral disc degeneration, lumbar region; G62.9 Polyneuropathy, unspecified; E55.9 Vitamin D deficiency, unspecified; K59.04 Chronic idiopathic constipation; F51.01 Primary insomnia; E66.3 Overweight
CPT/HCPCS: 99214

== ENCOUNTER 2023-09-06 13:09 | Outpatient (REF) | payer MEDICARE, SELFPAY ==
--- NOTE | ~2023-09-06 | XR_ITS ---
EXAMINATION: XR ABDOMEN KUB CLINICAL INDICATION: Calculus of kidney. COMPARISON: 06/09/2023 renal ultrasound, CT urogram of 03/04/2023. TECHNIQUE: 2 AP views of the abdomen. FINDINGS: Nonobstructive bowel gas pattern. Moderate amount of stool in the colon. Degenerative changes in the imaged spine and bilateral hips. Dense calculus or cluster calculus measuring 2.4 cm overlies the lower pole of the left kidney. 5 mm calculus and possible 3 mm calculus overlying the lower pole of the right kidney. Right upper quadrant calcifications may represent cholelithiasis. Gallstones identified on CT abdomen and pelvis of 03/31/2022. XR/XR KUB IMPRESSION: 1. Bilateral renal calculi. 2. Right upper quadrant calcifications may represent cholelithiasis. Gallstones identified on CT abdomen and pelvis of 03/31/2022.
== END 2023-09-06 13:10 | disposition home or self-care (01) ==
LOC: HO.XRAY 13:09
PROVIDERS: PCP Internal Medicine; Visit Provider Nurse Practitioner Family
DX: N20.0 Calculus of kidney (principal)
CPT/HCPCS: 74018

== ENCOUNTER 2023-10-01 11:14 | Outpatient (REF) | payer MEDICARE, MEDICAID, SELFPAY ==
[2023-10-01 18:52] LABS: Urine Cytology See Pathology rpt
== END 2023-10-01 11:15 | disposition home or self-care (01) ==
LOC: HO.LNP 11:14
PROVIDERS: PCP Internal Medicine; Visit Provider Nurse Practitioner Family
DX: R31.29 Other microscopic hematuria (principal); N20.0 Calculus of kidney; I10 Essential (primary) hypertension; J44.9 Chronic obstructive pulmonary disease, unspecified; Z99.81 Dependence on supplemental oxygen
CPT/HCPCS: 81003; 88112; 99212

== ENCOUNTER 2023-10-01 11:14 | Outpatient (AMB) | payer MEDICARE, MEDICAID, SELFPAY ==
--- NOTE | 2023-10-01 11:51 | MHC.OFFVIS ---
Intake Intake Visit Reasons: 3m/KUB(set) Intake Note: Patient presents today for follow up nephrolithiasis and KUB results Urology Medications: tamsulosin Blood Thinner: Aspirin Emergency Management System Director Required: No Accompanied by: Self / Same As Patient Allergies No Known Allergies Allergy (Verified 10/01/23 22:06) Medication List - Last Reconciled 10/01/23 by KEELY Reich- albuterol sulfate 90 mcg/actuation (Ventolin HFA) 2 puffs inhalation Q6H PRN albuterol sulfate 2.5 mg (3 mL) continuous nebulization QID PRN amlodipine 5 mg PO DAILY aspirin 81 mg PO DAILY atorvastatin 80 mg PO DAILY bisacodyl (Gentle Laxative (bisacodyl)) 10 mg (2 x 5 mg) PO BEDTIME cholecalciferol (vitamin D3) (Vitamin D3) 25 mcg PO DAILY cyanocobalamin (vitamin B-12) 1,000 mcg PO DAILY docusate sodium 100 mg PO BEDTIME famotidine (Pepcid) 20 mg PO BEDTIME 90 days ktutxhjarwy-xvtcuxzmd-ontzjiia 200-62.5-25 mcg (Trelegy Ellipta) 1 ea inhalation DAILY guaifenesin ER (Mucinex) 600 mg PO Q12H PRN isosorbide mononitrate ER 30 mg PO DAILY lidocaine 5% 1 patch topical DAILY 30 days losartan 100 mg PO DAILY methocarbamol 500 mg PO BID PRN 30 days methylcellulose (laxative) (Citrucel) 500 mg PO DAILY nitroglycerin 0.4 mg sublingual Q5M PRN nystatin 500,000 units (5 mL) mucous membrane TID 10 days pantoprazole 40 mg PO DAILY roflumilast (Daliresp) 500 mcg PO DAILY tamsulosin 0.4 mg PO DAILY topiramate 25 mg PO DAILY HPI HPI Comments History of Present Illness Details Toby is a 63-year-old male patient of Dr. Ferrer. He has a past medical history of ACD, hypertension, constipation, COPD with oxygen dependence, GERD, headache, lumbar degenerative disc disease, hyperlipidemia, neuropathy, osteoarthritis, insomnia, and obesity. He presents to the office today for follow-up of his microscopic hematuria and nephrolithiasis. Recent KUB results reviewed with the patient today. Dense calculus or cluster of calculus measuring 2.4 cm overlying the lower pole of the left kidney. 5 mm calculus and possible 3 mm calculus overlying the lower pole of the right kidney. Of note, patient had previously underwent an office cystoscopy for microscopic hematuria in the setting of nicotine dependence with Dr. Brooke on 03/27. Cystoscopy findings with no suspicious bladder lesions found. Prostate noted some bilobed pillar enlargement and moderate trabeculations. Recommendations were made for left-sided ESWL for nephrolithiasis as CT results noting irregular calculus measuring 14 mm in diameter in the lower pole of the left kidney. However, patient was unable to obtain cardiac as well as pulmonary clearance due to his ongoing medical conditions. In discussion with the patient today discussed increased stone burden. Discussed further surgical intervention versus surveillance monitoring. Discussed risks and benefits of surveillance monitoring versus surgical intervention at length. All questions were answered. In office urinalysis results reviewed with the patient today. He otherwise denies any bothersome urinary issues or concerns. He denies urinary urgency, urinary frequency, incontinence, nocturia, hematuria, dysuria, foul smelling urine, changes to urinary stream, flank pain, fever, and or chills. He is happy with his current voiding parameters. Cytology 01/24 Atypical urothelial cells Cytology 02/23 Atypical urothelial cells [facility] Medical History Overweight (BMI 25.0-29.9) Constipation Atherosclerotic cardiovascular disease Swelling of left lower extremity Vitamin B12 deficiency GERD without esophagitis Anterior chest wall pain Mixed hyperlipidemia Primary insomnia Urinary frequency Neuropathy Vitamin D deficiency Osteoarthritis Lumbar degenerative disc disease Impaired fasting glucose Benign essential hypertension COPD (chronic obstructive pulmonary disease) Headache Epidermoid cyst Surgical History History of cardiac cath History of colonoscopy Family History Father Colon cancer Mother Medical history unknown Social History Housing: Apartment Alcohol intake: former Patient Tobacco Use Status: Current everyday Tobacco user Tobacco use type: Cigarette Cigarettes Per Day: 6 Years Smoked: 30 +/- e-Cigarette/Vaping Use: Never Used Second Hand Smoke Exposure: Yes service: No Current occupational status: disabled Cognitive needs: No Hearing needs: Yes Vision needs: Yes (reading glasses) Review of Systems Const Reports as per [facility] Eyes Reports no additional complaints ENT Reports no additional complaints Card Reports as per [facility] Resp Reports as per [facility] GI Reports as per [facility] Reports as per [facility] Musc Reports as per [facility] Neuro Reports as per [facility] Psych Reports no additional complaints Physical Exam Const General: cooperative, comfortable, no acute distress, well developed, alert and awake Orientation/consciousness: patient oriented x3 Limitations: no limitations HEENT Head: Yes normal to inspection, Yes normocephalic and Yes atraumatic Ears: hearing grossly normal bilaterally Eyes General: appearance normal, both eyes and all related structures Neck Neck: Yes normal visual inspection and Yes trachea midline Chest Chest palpation & inspection: normal inspection of the chest Resp Effort & Inspection: normal respiratory effort, able to speak in complete sentences and audible wheezes Cardio Rate: regular rate GI Inspection: Yes normal to inspection General: Yes CVA tenderness (left side ) Back/Spine/Pelvis Back: CVA tenderness (left side ) Skin General skin exam: no rashes or lesions noted Neuro General: patient oriented x3 Extrem General: Yes normal to inspection Psych Appearance: grossly normal and well kempt Mental Status: mental status grossly normal Speech and movement: Normal speech and movement present and Clear speech present Affect: normal affect Attitude: cooperative Thought process: Normal thought process present Thought content: Normal thought content present Insight: Fair insight present (Psych) Judgement: Fair judgement present (Psych) Results AMB Urinalysis, Automated UA Leukoctes 0 Lila/uL Last Edit by [employer] on 10/01/23 12:06 UA Nitrite Negative Last Edit by [employer] on 10/01/23 12:06 UA Urobilinogen 0.2 mg/dL Last Edit by [employer] on 10/01/23 12:06 UA Protein 0 mg/dL Last Edit by [employer] on 10/01/23 12:06 UA pH 6.5 Last Edit by [employer] on 10/01/23 12:06 UA Blood 10 Kevin/uL Last Edit by [employer] on 10/01/23 12:06 UA Specific [place] 1.015 Last Edit by [employer] on 10/01/23 12:06 UA Ketone Negative Last Edit by [employer] on 10/01/23 12:06 UA Bilirubin mg/dL Last Edit by Osvaldo Odom on 10/01/23 12:06 UA Glucose 0 mg/dL Last Edit by Osvaldo Odom on 10/01/23 12:06 Results Reviewed Results Reviewed: Laboratory Last Values Urine pH (Auto) 6.5 10/01/23 12:05 Specific [place] (Auto) 1.015 10/01/23 12:05 Urine Protein (Auto) 0 mg/dL 10/01/23 12:05 Glucose (UA)(Auto) 0 mg/dL 10/01/23 12:05 Urine Ketones (Auto) Negative 10/01/23 12:05 Urine Blood (Auto) 10 Kevin/uL 10/01/23 12:05 Urine Nitrite (Auto) Negative 10/01/23 12:05 Urine Urobilinogen (Auto) 0.2 mg/dL 10/01/23 12:05 Leukocyte Esterase (Auto) 0 Lila/uL 10/01/23 12:05 Date of Service: 09/06/23 EXAMINATION: XR ABDOMEN KUB FINDINGS: Nonobstructive bowel gas pattern. Moderate amount of stool in the colon. Degenerative changes in the imaged spine and bilateral hips. Dense calculus or cluster calculus measuring 2.4 cm overlies the lower pole of the left kidney. 5 mm calculus and possible 3 mm calculus overlying the lower pole of the right kidney. Right upper quadrant calcifications may represent cholelithiasis. Gallstones identified on CT abdomen and pelvis of 03/31/2022. IMPRESSION: 1. Bilateral renal calculi. 2. Right upper quadrant calcifications may represent cholelithiasis. Gallstones identified on CT abdomen and pelvis of 03/31/2022. Assessment & Plan Assessment & Plan (1) Nephrolithiasis: Code(s): N20.0 - Calculus of kidney (2) Microhematuria: Code(s): R31.29 - Other microscopic hematuria (3) Nicotine dependence: Code(s): F17.200 - Nicotine dependence, unspecified, uncomplicated Plan In office urinalysis results reviewed with the patient today; will send for urine cytology Recent renal imaging results reviewed with the patient today; as noted above. Discussed at length surveillance monitoring verses surgical intervention; discussed risks and benefits at length; all questions were answered Patient currently denies any bothersome urinary issues or concerns. He is happy with current voiding parameters. Discussed and educated on the importance of limiting/quitting smoking for overall health and well-being. Will obtain CT urogram for further assessment evaluation BUN and creatinine ordered for imaging Follow-up with Dr. Pizano once imaging is completed to discuss further surgical intervention; or sooner with any issues, concerns, and or questions. Orders: Orders AMB Urinalysis Automated Today Z13.9 - Encounter for screening, unspecified Blood Urea Nitrogen Today N20.0 - Calculus of kidney, R31.29 - Other microscopic hematuria Creatinine Today N20.0 - Calculus of kidney, R31.29 - Other microscopic hematuria Urine Cytology Today R31.29 - Other microscopic hematuria CT urogram Today R31.0 - Gross hematuria Coding Level of Care Code Est Pt Level 3 (99096) Diagnoses Nephrolithiasis N20.0 Microhematuria R31.29 Nicotine dependence F17.200
== END 2023-10-01 12:18 | disposition home or self-care (01) ==
PROVIDERS: PCP Internal Medicine; Visit Provider Nurse Practitioner Family
DX: Z13.9 Encounter for screening, unspecified (principal)
CPT/HCPCS: 99213

== ENCOUNTER 2023-10-19 14:36 | Outpatient (AMB) | payer OTHER, SELFPAY ==
--- NOTE | 2023-10-19 14:41 | MHC.OFFVIS ---
Intake Vital Signs 10/19/23 14:45 Height 6 ft 1 in Weight 225 lb BMI 29.7 BP 109/62 Blood Pressure Location Lt brachial Position Sitting Pulse 84 Intake Visit Reasons: 6 month follow up Intake Note: Toby presents in the office as a 6 month follow up. CC: He states that he is not having any new concerns. Allergies No Known Allergies Allergy (Verified 10/19/23 14:47) HPI 6 month follow up HPI Details LAST VISIT: Constipation GERD without esophagitis Plan Continue avoiding dietary triggers. Patient can continue taking pantoprazole in the morning. Patient can continue taking famotidine on as needed basis at bedtime. Staying upright for minimum 3 hours after meals discussed with patient. Patient was encouraged to quit smoking. Patient can continue taking Dulcolax and Colace daily. I will see him in 6 months, sooner on as needed basis. Patient is agreeable to plan and verbalizes understanding of instructions. He was given the opportunity questions and all questions answered. ? Thank you for allowing me to participate in his care Medications Changed Changed From bisacodyl 10 mg (2 x 5 mg) PO BEDTIME 2 days 180 tabs 3RF Changed To bisacodyl (Gentle Laxative (bisacodyl)) 10 mg (2 x 5 mg) PO BEDTIME 180 tabs 3RF Refilled pantoprazole take every morning 30 minutes before breakfast 40 mg PO DAILY 90 tabs 4RF K21.9 docusate sodium 100 mg PO BEDTIME 90 caps 3RF K59.00 Discontinued magnesium citrate Discontinued Reason: Doctor's Order 150 mL PO DAILY PRN 296 mL 5RF constipation K59.00 lubiprostone Discontinued Reason: Doctor's Order 24 mcg PO BID 180 caps 3RF K59.00 TODAY'S VISIT Patient is here today for follow-up. Patient is accompanied by his . Patient denies any GI concerning symptoms today. Patient states that he is moving his bowels better now. Patient is taking Dulcolax and Colace at bedtime and is moving his bowels well. Denies dyspepsia, dysphagia or odynophagia. Patient is taking pantoprazole every morning. Patient reports that his symptoms are suppressed. Patient reports to have good appetite. He does continue to smoke cigarettes despite having shortness of breath. Sees pulmonology, Cardiology and urology on regular basis. Patient had negative Cologuard in August of 2021 and will be due to go for testing again in 10 months. Patient reports to be doing fairly well [facility] Medical History Overweight (BMI 25.0-29.9) Constipation Atherosclerotic cardiovascular disease Swelling of left lower extremity Vitamin B12 deficiency GERD without esophagitis Anterior chest wall pain Mixed hyperlipidemia Primary insomnia Urinary frequency Neuropathy Vitamin D deficiency Osteoarthritis Lumbar degenerative disc disease Impaired fasting glucose Benign essential hypertension COPD (chronic obstructive pulmonary disease) Headache Epidermoid cyst Surgical History History of cardiac cath History of colonoscopy Family History Father Colon cancer Mother Medical history unknown Social History Housing: Apartment Alcohol intake: former Patient Tobacco Use Status: Current everyday Tobacco user Tobacco use type: Cigarette Cigarettes Per Day: 6 Years Smoked: 30 +/- e-Cigarette/Vaping Use: Never Used Second Hand Smoke Exposure: Yes service: No Current occupational status: disabled Cognitive needs: No Hearing needs: Yes Vision needs: Yes (reading glasses) Physical Exam Vital Signs: Last Vital Signs Pulse 84 10/19/23 14:45 BP 109/62 10/19/23 14:45 BMI result Body Mass Index 29.7 Assessment & Plan Assessment & Plan (1) Constipation: Code(s): K59.00 - Constipation, unspecified Qualifiers: Constipation type: chronic idiopathic constipation Qualified Code(s): K59.04 - Chronic idiopathic constipation (2) GERD without esophagitis: Code(s): K21.9 - Gastro-esophageal reflux disease without esophagitis Plan Continue pantoprazole every morning half an hour before breakfast. Avoid dietary triggers and late night snacking. Avoid alcohol. Smoking cessation encouraged. Patient can continue current regimen with his bowels. Increase fluid intake and activity to promote better bowel motility. Patient will return in the office in 6 months. Patient will be due to go for Coluard again in August of 2023. He will call our office if he will have any GI concerning symptoms. He is agreeable to this plan and verbalizes understanding of instructions. He was given the opportunity to ask questions and all questions answered. Than you for allowing me to participate in his care Medications: Refilled pantoprazole take every morning 30 minutes before breakfast 40 mg PO DAILY 90 tabs 4RF K21.9 - Gastro-esophageal reflux disease without esophagitis Coding Level of Care Code Est Pt Level 3 (73988) Diagnoses Chronic idiopathic constipation K59.04 Constipation type: chronic idiopathic constipation GERD without esophagitis K21.9 Time Spent (min) 30 Comment 20 minutes spent with patient and additional 10 minutes spent reviewing her records
[2023-10-19 14:45] VITALS: BP 109/62; PULSE 84; BMI 29.7
== END 2023-10-19 15:09 | disposition home or self-care (01) ==
PROVIDERS: PCP Internal Medicine; Visit Provider Nurse Practitioner Family
DX: K59.04 Chronic idiopathic constipation (principal); K21.9 Gastro-esophageal reflux disease without esophagitis
CPT/HCPCS: 99213

== ENCOUNTER → 2023-10-19 14:36 | Outpatient (BNVA) | payer MEDICARE, MEDICAID, SELFPAY | PROVIDERS: PCP Internal Medicine; Visit Provider Nurse Practitioner Family | DX: K59.04 Chronic idiopathic constipation (principal); K21.9 Gastro-esophageal reflux disease without esophagitis | CPT/HCPCS: 99212 ==

== ENCOUNTER 2023-10-26 14:08 | Outpatient (AMB) | payer MEDICARE, MEDICAID, SELFPAY ==
[2023-10-26 14:18] VITALS: BP 120/54; PULSE 85; BMI 29.9
--- NOTE | 2023-10-26 14:18 | MHC.OFFVIS ---
Vital Signs 10/26/23 14:18 Height 6 ft 1 in Weight 226 lb 10.163 oz BMI 29.9 BP 120/54 L Blood Pressure Location Lt brachial Position Sitting Pulse 85 Pulse Source Pulse Oximeter Intake Visit Reasons: 6 mth f/up Neuro Ophthalmologist Required: No Accompanied by: Spouse Allergies No Known Allergies Allergy (Verified 10/19/23 14:47) Medication List - Last Reconciled 10/26/23 by Esdras Thorpe MD albuterol sulfate 90 mcg/actuation (Ventolin HFA) 2 puffs inhalation Q6H PRN albuterol sulfate 2.5 mg (3 mL) continuous nebulization QID PRN amlodipine 5 mg PO DAILY aspirin 81 mg PO DAILY atorvastatin 80 mg PO DAILY bisacodyl (Gentle Laxative (bisacodyl)) 10 mg (2 x 5 mg) PO BEDTIME cholecalciferol (vitamin D3) (Vitamin D3) 25 mcg PO DAILY cyanocobalamin (vitamin B-12) 1,000 mcg PO DAILY docusate sodium 100 mg PO BEDTIME famotidine (Pepcid) 20 mg PO BEDTIME 90 days vqlyztoiung-ymxfisxrt-ekzygukd 100-62.5-25 mcg (Trelegy Ellipta) 1 ea inhalation DAILY guaifenesin ER (Mucinex) 600 mg PO Q12H PRN isosorbide mononitrate ER 30 mg PO DAILY lidocaine 5% 1 patch topical DAILY 30 days losartan 100 mg PO DAILY methocarbamol 500 mg PO BID PRN 30 days methylcellulose (laxative) (Citrucel) 500 mg PO DAILY nitroglycerin 0.4 mg sublingual Q5M nystatin 500,000 units (5 mL) mucous membrane TID 10 days pantoprazole 40 mg PO DAILY roflumilast (Daliresp) 500 mcg PO DAILY tamsulosin 0.4 mg PO DAILY topiramate 25 mg PO DAILY HPI Comments Details: Toby returns for follow-up regarding coronary artery disease. He also has advanced COPD. He underwent cardiac catheterization that showed right coronary artery disease, but he was having lot of respiratory symptoms and coughing and hence no intervention was performed. He is on medications for stable coronary disease. Unfortunately, he is still smoking. Has significant COPD at baseline. Overall, just about the same as before. Shortness of breath with minimal activity. Comes in a wheelchair. [facility] Medical History Overweight (BMI 25.0-29.9) Constipation Atherosclerotic cardiovascular disease Swelling of left lower extremity Vitamin B12 deficiency GERD without esophagitis Anterior chest wall pain Mixed hyperlipidemia Primary insomnia Urinary frequency Neuropathy Vitamin D deficiency Osteoarthritis Lumbar degenerative disc disease Impaired fasting glucose Benign essential hypertension COPD (chronic obstructive pulmonary disease) Headache Epidermoid cyst Surgical History History of cardiac cath History of colonoscopy Family History Father Colon cancer Mother Medical history unknown Social History Housing: Apartment Alcohol intake: former Patient Tobacco Use Status: Current everyday Tobacco user Tobacco use type: Cigarette Cigarettes Per Day: 6 Years Smoked: 30 +/- e-Cigarette/Vaping Use: Never Used Second Hand Smoke Exposure: Yes service: No Current occupational status: disabled Cognitive needs: No Hearing needs: Yes Vision needs: Yes (reading glasses) Review of Systems Const Denies chills, Denies fatigue, Denies fever(s), Denies frequent falls, Denies weakness, Denies weight gain and Denies weight loss ENT Denies dizziness Card Denies chest pain, Denies leg edema, Denies lightheadedness, Denies palpitations, Denies dyspnea and Denies dyspnea on exertion Resp Denies cough, Denies dyspnea and Denies dyspnea on exertion GI Denies hematochezia Musc Denies abnormal gait, Denies muscle weakness, Denies numbness, Denies radiating pain into limb and Denies tingling Neuro Denies abnormal gait, Denies dizziness, Denies frequent falls, Denies numbness, Denies tingling and Denies weakness Endo Denies fatigue and Denies palpitations Physical Exam Vital Signs: Last Vital Signs Pulse 85 10/26/23 14:18 BP 120/54 L 10/26/23 14:18 BMI result Body Mass Index 29.9 Const General: comfortable and no acute distress Orientation/consciousness: patient oriented x3 HEENT Other: Unremarkable Head: Yes normal to inspection Neck Neck: Yes normal visual inspection Chest Chest palpation & inspection: normal inspection of the chest Resp Auscultation: rhonchi and wheezes Cardio Palpation: normal PMI Heart sounds: S1 normal heart sound present, S2 normal heart sound present, no gallops, no murmurs and no rubs GI Palpation (GI): Soft to palpation Back/Spine/Pelvis Other: unremarkable Skin General skin exam: no rashes or lesions noted Neuro General: patient oriented x3 Extrem General: Yes normal to inspection Psych Mental Status: mental status grossly normal Assessment & Plan Assessment & Plan (1) Atherosclerotic cardiovascular disease: Code(s): I25.10 - Atherosclerotic heart disease of [place] coronary artery without angina pectoris Category: Medical (2) Essential hypertension: Code(s): I10 - Essential (primary) hypertension Category: Medical (3) Other and unspecified hyperlipidemia: Code(s): E78.5 - Hyperlipidemia, unspecified Category: Medical (4) Smoking: Code(s): F17.200 - Nicotine dependence, unspecified, uncomplicated Category: Social Hx (5) Morbid obesity: Code(s): E66.01 - Morbid (severe) obesity due to excess calories Category: Medical (6) COPD (chronic obstructive pulmonary disease): Code(s): J44.9 - Chronic obstructive pulmonary disease, unspecified Category: Medical Qualifiers: COPD type: unspecified COPD Qualified Code(s): J44.9 - Chronic obstructive pulmonary disease, unspecified (7) Preoperative cardiovascular examination: Code(s): Z01.810 - Encounter for preprocedural cardiovascular examination Category: Medical Plan Cardiac studies reviewed. Echocardiogram with normal LVEF, basal inferior akinesis. Dobutamine myocardial perfusion imaging study shows fixed inferior defect thought to be from prior infarct versus diaphragmatic attenuation versus some components of both. Cardiac catheterization shows subtotal occlusion of the right coronary artery with collaterals, no significant disease elsewhere. On medical therapy only. Overall, on meds for stable coronary disease including aspirin, long-acting nitrates, amlodipine, losartan. Continue statins. Cholesterol is well controlled. Have discussed smoking cessation several times including today but unlikely that he will stop. With regard to the urology procedure, it does pose significant anesthesia risks mainly due to advanced lung disease and additionally coronary disease. There is risk of cecily-operative myocardial infarction as well as respiratory complications. They will follow-up with urology regarding this. Ideally, should also obtain pulmonary assessment as well. Discussed with significant other. Coding Level of Care Code Est Pt Level 4 (02124) Diagnoses Atherosclerotic cardiovascular disease I25.10 Essential hypertension I10 Other and unspecified hyperlipidemia E78.5 Smoking F17.200 Morbid obesity E66.01 Chronic obstructive pulmonary disease, unspecified COPD type J44.9 COPD type: unspecified COPD Preoperative cardiovascular examination Z01.810
== END 2023-10-26 14:49 | disposition home or self-care (01) ==
PROVIDERS: PCP Internal Medicine; Visit Provider Internal Medicine
DX: I25.10 Atherosclerotic heart disease of native coronary artery without angina pectoris (principal); I10 Essential (primary) hypertension; E78.5 Hyperlipidemia, unspecified; F17.200 Nicotine dependence, unspecified, uncomplicated; E66.01 Morbid (severe) obesity due to excess calories; J44.9 Chronic obstructive pulmonary disease, unspecified; Z01.810 Encounter for preprocedural cardiovascular examination
CPT/HCPCS: 99214

== ENCOUNTER → 2023-10-26 14:08 | Outpatient (BNVA) | payer MEDICARE, MEDICAID, SELFPAY | PROVIDERS: PCP Internal Medicine; Visit Provider Internal Medicine | DX: Z01.810 Encounter for preprocedural cardiovascular examination (principal); I10 Essential (primary) hypertension; I25.10 Atherosclerotic heart disease of native coronary artery without angina pectoris; J44.9 Chronic obstructive pulmonary disease, unspecified; F17.210 Nicotine dependence, cigarettes, uncomplicated; E78.5 Hyperlipidemia, unspecified; E66.01 Morbid (severe) obesity due to excess calories; Z79.899 Other long term (current) drug therapy | CPT/HCPCS: 99212 ==

== ENCOUNTER 2023-11-25 12:10 | Outpatient (REF) | payer MEDICARE, MEDICAID, SELFPAY ==
[2023-11-25 12:44] LABS: MANUAL DIFF FLAG NO
[2023-11-25 13:30] LABS: Appearance Urine Clear; Color Urine Yellow; Glucose Urine UA Negative (Negative); Leukocyte Esterase Urine Negative (Negative); Nitrite Urine Negative (Negative); PH 6.5 (5.0-9.0); Specific Gravity - Urine <= 1.005 (1.005-1.025); Urine Blood Negative (Negative); Urine Ketones Negative (Negative); Urine Protein Negative (Neg-Trace)
[2023-11-25 13:30] LABS: Basophils Absolute Auto 0.1 X10*3/uL (0.0-0.2); Basophils Percent Auto 0.7 % (0-2); Eosinophils Absolute Auto 0.3 X10*3/uL (0.0-0.4); Eosinophils Percent Auto 3.2 % (0-4); Hematocrit 46.2 % (42.0-52.0); Hemoglobin 15.8 g/dl (14.0-18.0); Imm Gran Abs Auto 0.02 X10*3/uL (0.00-0.03); Imm Gran Pct Auto 0.2 % (0.0-0.4); Lymphocytes Absolute Auto 1.7 X10*3/uL (1.2-4.9); Lymphocytes Percent Auto 20.4 % (20-40); Mean Corpuscular HGB Conc 34.2 g/dl (31.0-36.0); Mean Corpuscular Hemoglobin 30.8 pg (27.0-33.0); Mean Corpuscular Volume 90.1 fL (80.0-98.0); Mean Platelet Volume 9.4 fL (9.4-12.4); Monocytes Absolute Auto 0.8 X10*3/uL (0.1-1.2); Neutrophils Absolute Auto 5.5 x10*3/uL (2.0-8.3); Neutrophils Percent Auto 65.5 % (45-73); Platelet Count 252 X10*3/uL (160-400); Red Blood Count 5.13 X10*6/uL (4.60-5.80); Red Cell Distribution Width 12.7 % (11.0-16.0); White Blood Count 8.4 X10*3/uL (4.8-10.8)
[2023-11-25 13:58] LABS: Estimated Average Glucose 103 mg/dL; Hemoglobin A1c % 5.2 % (<6.0)
[2023-11-25 14:17] LABS: Alanine Aminotransferase 30 U/L (0-40); Albumin Level 3.9 g/dL (3.5-5.0); Alkaline Phosphatase 131 U/L (39-117); Anion Gap 13 (12-20); Aspartate Amino Transferase 16 U/L (5-37); Bilirubin Total 0.3 mg/dL (0.0-1.0); Blood Urea Nitrogen 11 mg/dL (9-16); Calcium 9.3 mg/dL (8.4-10.2); Carbon Dioxide 24 mmol/L (22-29); Chloride 108 mmol/L (96-108); Cholesterol 102 mg/dL (<200); Estimated Glomerular Filt Rate > 60; Glucose Fasting 113 mg/dL (60-99); HDL Cholesterol 41 mg/dL (>40); LDL Cholesterol Calculated 44 mg/dL (<100); Potassium 4.4 mmol/L (3.3-5.1); Sodium 141 mmol/L (135-145); TSH reflex Free T4 0.98 uIU/mL (0.32-4.0); Total Protein 6.6 g/dL (6.5-8.0); Triglycerides 86 mg/dL (<150); Vitamin D 25-OH Total 35.4 ng/mL (>30)
== END 2023-11-25 12:11 | disposition home or self-care (01) ==
LOC: HO.LAB 12:10
PROVIDERS: PCP Internal Medicine; Visit Provider Nurse Practitioner Family
DX: R30.0 Dysuria (principal); D64.9 Anemia, unspecified; E78.00 Pure hypercholesterolemia, unspecified; E55.9 Vitamin D deficiency, unspecified; R73.01 Impaired fasting glucose; N40.0 Benign prostatic hyperplasia without lower urinary tract symptoms; Z12.5 Encounter for screening for malignant neoplasm of prostate
CPT/HCPCS: 36415; 80053; 80061; 81003; 82306; 83036; 84153; 84443; 85025

== ENCOUNTER 2023-12-02 08:05 | Outpatient (REF) | payer MEDICARE, MEDICAID, SELFPAY ==
--- NOTE | ~2023-12-02 | CT_ITS ---
EXAMINATION: CT ABDOMEN AND PELVIS WITHOUT AND WITH CONTRAST CLINICAL INFORMATION: Gross hematuria. COMPARISON: Ultrasound kidneys 06/08/2023, CT urogram 03/04/2023. TECHNIQUE: Noncontrast CT of the abdomen and pelvis is performed followed by split bolus contrast-enhanced images using 85 mL Omnipaque 350 contrast.? Postcontrast imaging is performed during the combined nephrogram and excretion phase. Sagittal and coronal reformatted images were obtained on the technologist's workstation for both the precontrast and postcontrast phases. This CT examination was performed using dose optimization techniques as appropriate, variously including the following: *Automated exposure control *Adjustment of mA and/or kV according to patient size (this includes techniques or standardized protocols for targeted exams where dose is matched to indication/reason for exam; i.e. extremities or head) *Use of iterative reconstruction technique DLP: 982 mGy-cm. FINDINGS: LUNG BASES: There is bronchial thickening at the lung bases. There is a tiny 2 mm nodule present in the left lower lobe (8:4). LIVER, GALLBLADDER, AND BILIARY TREE: The liver is normal in size, shape, and attenuation. No focal hepatic lesion or biliary ductal dilatation is present. There is cholelithiasis without evidence of cholecystitis. PANCREAS: Unremarkable. SPLEEN: Unremarkable. ADRENAL GLANDS: Unremarkable. KIDNEYS AND URETERS: The kidneys are normal in size, shape, and attenuation. There is a branching calculus present in the lower pole calyces and infundibula. This measures 1208 Hounsfield units, and is 12.2 cm from the posterior axillary line. This is unchanged when compared to the prior study from 03/04/2023. No new stones. No hydronephrosis, hydroureter, or right-sided or ureteral calculi seen. No perinephric stranding. Pelvicalyceal systems appear normal without mucosal abnormality or other filling defects. BLADDER: Unremarkable aside from some mild unchanged indentation at the bladder base by the median lobe of the prostate (8:73). GASTROINTESTINAL TRACT: The small and large bowel are unremarkable aside from colonic diverticulosis without diverticulitis. The appendix is unremarkable. ABDOMINAL WALL: No significant hernia is appreciated. LYMPH NODES: Normal. VASCULAR: Calcific atherosclerotic changes are present in the aorta and iliofemoral vessels. There is no evidence of an abdominal aortic aneurysm. PELVIC VISCERA: There is [id number] BPH. The seminal vesicles appear normal. OSSEUS STRUCTURES: Marked degenerative changes are present from L2 through S1. No bony destructive lesions. CT/CT urogram IMPRESSION: 1. A cause for the patient's gross hematuria has not been found. 2. There is a branching calculus in the lower pole of the left kidney, which is unchanged when compared to the prior study from 03/04/2023. 3. Incidental note made of cholelithiasis, colonic diverticulosis, BPH and degenerative changes in the spine. Fleischner guidelines were followed.
[2023-12-02] MEDS: iohexoL 350 MG/ML 100 ML INFUS..BTL 85 ML IV (09:48)
== END 2023-12-02 08:06 | disposition home or self-care (01) ==
LOC: HO.CT 08:05
PROVIDERS: PCP Internal Medicine; Visit Provider Nurse Practitioner Family
DX: R31.0 Gross hematuria (principal)
CPT/HCPCS: 74178; Q9967

== ENCOUNTER 2023-12-07 13:27 | Outpatient (AMB) | payer MEDICARE, MEDICAID, SELFPAY ==
--- NOTE | 2023-12-07 13:32 | A.OFFVIS_ITS ---
Intake Visit Reasons: follow up/CT/labs(set) Intake Note: Patient is Present for Follow Up Urology Medication: Patient states he is not taking Tamsulosin Antibiotic Allergies: None Blood Thinners: Aspirin Allergies No Known Allergies Allergy (Verified 12/07/23 13:33) Medication List - Last Reconciled 12/07/23 by Francisco Pizano MD albuterol sulfate 90 mcg/actuation (Ventolin HFA) 2 puffs inhalation Q6H PRN albuterol sulfate 2.5 mg (3 mL) continuous nebulization QID PRN allopurinol 100 mg PO DAILY 90 days amlodipine 5 mg PO DAILY aspirin 81 mg PO DAILY atorvastatin 80 mg PO DAILY bisacodyl (Gentle Laxative (bisacodyl)) 10 mg (2 x 5 mg) PO BEDTIME cholecalciferol (vitamin D3) (Vitamin D3) 25 mcg PO DAILY cyanocobalamin (vitamin B-12) 1,000 mcg PO DAILY docusate sodium 100 mg PO BEDTIME famotidine (Pepcid) 20 mg PO BEDTIME 90 days buzaqvzuvgw-fulgzwdrj-axofymol 100-62.5-25 mcg (Trelegy Ellipta) 1 ea inhalation DAILY guaifenesin ER (Mucinex) 600 mg PO Q12H PRN isosorbide mononitrate ER 30 mg PO DAILY lidocaine 5% 1 patch topical DAILY 30 days losartan 100 mg PO DAILY methocarbamol 500 mg PO BID PRN 30 days methylcellulose (laxative) (Citrucel) 500 mg PO DAILY nitroglycerin 0.4 mg sublingual Q5M nystatin 500,000 units (5 mL) mucous membrane TID 10 days pantoprazole 40 mg PO DAILY potassium citrate ER 20 mEq (2 x 10 mEq (1,080 mg)) PO BID 90 days roflumilast (Daliresp) 500 mcg PO DAILY tamsulosin 0.4 mg PO DAILY topiramate 25 mg PO DAILY HPI Comments Details: Toby is a pleasant male. He is a patient of Dr. Disla. He seen for the following urologic conditions - inguinal disruption previously - microscopic hematuria - prior negative evaluation with cystoscopy Prior discussion regarding ESWL Number of medical comorbidities including COPD with oxygen dependence Will reassess for procedure Start potassium citrate and allopurinol to try to reduce stone burden Nephrolithiasis Imaging - 09/25 KUB left kidney cluster 2.4 cm, right kidney 5 mm in 3 mm PFSH Medical History Overweight (BMI 25.0-29.9) Constipation Atherosclerotic cardiovascular disease Swelling of left lower extremity Vitamin B12 deficiency GERD without esophagitis Anterior chest wall pain Mixed hyperlipidemia Primary insomnia Urinary frequency Neuropathy Vitamin D deficiency Osteoarthritis Lumbar degenerative disc disease Impaired fasting glucose Benign essential hypertension COPD (chronic obstructive pulmonary disease) Headache Epidermoid cyst Surgical History History of cardiac cath History of colonoscopy Family History Father Colon cancer Mother Medical history unknown Social History Housing: Apartment Alcohol intake: former Patient Tobacco Use Status: Current everyday Tobacco user Tobacco use type: Cigarette Cigarettes Per Day: 6 Years Smoked: 30 +/- e-Cigarette/Vaping Use: Never Used Second Hand Smoke Exposure: Yes service: No Current occupational status: disabled Cognitive needs: No Hearing needs: Yes Vision needs: Yes (reading glasses) Review of Systems Const Denies chills and Denies fever(s) Card Reports no additional complaints and Denies syncope Resp Denies cough GI Denies abdominal pain and Denies heartburn Reports as per HPI and Denies change in libido Neuro Denies syncope Psych Denies change in libido Endo Denies change in libido Physical Exam Const General: cooperative, healthy appearing, comfortable and no acute distress Orientation/consciousness: patient oriented x3 HEENT Face and sinus: Yes normal facial exam Mouth: moist mucous membranes Neck Neck: Yes normal visual inspection, Yes full ROM and Yes trachea midline Chest Chest palpation & inspection: normal inspection of the chest Resp Effort & Inspection: normal respiratory effort, able to speak in complete sentences and no respiratory distress GI Inspection: Yes normal to inspection Back/Spine/Pelvis Cervical Spine: normal cervical lordosis Thoracic/Lumbar Spine: thoracic and lumbar spine normal to inspection Skin General skin exam: no rashes or lesions noted Neuro General: patient oriented x3, gait normal, tone normal and moves all extremities Extrem General: Yes normal to inspection and Yes capillary refill normal Assessment & Plan Assessment & Plan (1) BPH loc w urin obs/LUTS: Code(s): N40.1 - Benign prostatic hyperplasia with lower urinary tract symptoms Category: Medical (2) Nephrolithiasis: Code(s): N20.0 - Calculus of kidney Category: Medical Plan Schedule for procedure Risks, benefits and alternatives to therapy were discussed. These include but are not limited to infection, bleeding, damage to local organs and tissues, need for further interventions. Anesthetic risks regarding cardiac arrhythmia, blood clots, and potential mortality were discussed. The patient understands the typical recovery time and the outpatient nature of the procedure. After consideration of these risks the patient gives full informed consent and they wish to move ahead with the procedure. Left ESWL Medications: New allopurinol 100 mg PO DAILY 90 days 90 tabs 1RF N20.0 - Calculus of kidney potassium citrate ER 20 mEq (2 x 10 mEq (1,080 mg)) PO BID 90 days 360 tabs 1RF N20.0 - Calculus of kidney Patient Instructions: Imaging studies, laboratory and physical exam results were discussed and reviewed in detail. No major barriers to patient understanding were identified. An opportunity to ask questions regarding the treatment plan was provided. All questions were answered. The patient expressed understanding and agreement with the above treatment plan. The patient is aware they should contact our office by phone for worsening of their current condition or the appearance of new urologic symptoms. Compliance is encouraged with any medications and followup testing that is ordered. It is a privilege to participate in the urologic care of your patient. If you have any questions or concerns regarding treatment for the above conditions, or other urologic issues, please do not hesitate to contact me. The office telephone contact is [phone]. This note is constructed using voice recognition software. While every effort has been made to ensure accuracy water project manager errors may have been included. Yours sincerely, Dr Francisco Pizano MD, [facility] - Urology Providers of Expert, Compassionate Care for the Genitourinary System Coding Level of Care Code Est Pt Level 4 (46308) Diagnoses BPH loc w urin obs/LUTS N40.1 Nephrolithiasis N20.0
== END 2023-12-07 13:53 | disposition home or self-care (01) ==
PROVIDERS: PCP Internal Medicine; Visit Provider Urology
DX: N40.1 Benign prostatic hyperplasia with lower urinary tract symptoms (principal); N20.0 Calculus of kidney
CPT/HCPCS: 99214

== ENCOUNTER → 2023-12-07 13:27 | Outpatient (BNVA) | payer MEDICARE, MEDICAID, SELFPAY | PROVIDERS: PCP Internal Medicine; Visit Provider Urology | DX: N40.1 Benign prostatic hyperplasia with lower urinary tract symptoms (principal); N13.8 Other obstructive and reflux uropathy; N20.0 Calculus of kidney | CPT/HCPCS: 99212 ==

== ENCOUNTER 2023-12-08 14:02 | Outpatient (AMB) | payer MEDICARE, MEDICAID, SELFPAY ==
[2023-12-08 14:03] VITALS: BP 126/58; PULSE 76; O2SAT 91; BMI 29.4
--- NOTE | 2023-12-08 14:03 | A.OFFPC_ITS ---
Vital Signs 12/08/23 14:03 Height 6 ft 1 in Weight 223 lb 0.4 oz BMI 29.4 BP 126/58 L Blood Pressure Location Lt brachial Position Sitting Pulse 76 Pulse Source Pulse Oximeter Pulse Oximetry (%) 91 L Oxygen Delivery Method Room Air Intake Visit Reasons: 4 month f/u Smoking Pipe Liner Required: No Allergies No Known Allergies Allergy (Verified 01/05/24 09:59) Medication List - Last Reconciled 12/08/23 by Sanju Disla MD albuterol sulfate 90 mcg/actuation (Ventolin HFA) 2 puffs inhalation Q6H PRN albuterol sulfate 2.5 mg (3 mL) continuous nebulization QID PRN allopurinol 100 mg PO DAILY 90 days amlodipine 5 mg PO DAILY aspirin 81 mg PO DAILY atorvastatin 80 mg PO DAILY bisacodyl (Gentle Laxative (bisacodyl)) 10 mg (2 x 5 mg) PO BEDTIME cholecalciferol (vitamin D3) (Vitamin D3) 25 mcg PO DAILY cyanocobalamin (vitamin B-12) 1,000 mcg PO DAILY docusate sodium 100 mg PO BEDTIME famotidine (Pepcid) 20 mg PO BEDTIME 90 days fhhxyfqwfpm-yuexmdyom-qpxoonus 100-62.5-25 mcg (Trelegy Ellipta) 1 ea inhalation DAILY guaifenesin ER (Mucinex) 600 mg PO Q12H PRN isosorbide mononitrate ER 30 mg PO DAILY lidocaine 5% 1 patch topical DAILY 30 days losartan 100 mg PO DAILY methocarbamol 500 mg PO BID PRN 30 days methylcellulose (laxative) (Citrucel) 500 mg PO DAILY nitroglycerin 0.4 mg sublingual Q5M nystatin 500,000 units (5 mL) mucous membrane TID 10 days pantoprazole 40 mg PO DAILY potassium citrate ER 20 mEq (2 x 10 mEq (1,080 mg)) PO BID 90 days roflumilast (Daliresp) 500 mcg PO DAILY tamsulosin 0.4 mg PO DAILY topiramate 25 mg PO DAILY Tobacco use date assessed: 12/08/23 Fall risk assessment: No Falls in past year Last assessed Fall Risk: 12/08/23 Dental Screening Dental Screen Date: 07/27/23 HPI 4 month f/u HPI Details Patient comes in today for his follow up visit - was last seen in July 2023 States that he currently feels okay He denies any headaches or dizziness Denies any chest pains, no increased SOB No nausea/vomiting, no abdominal pain No change in bowel habits noted He is requesting for Rx again for oral thrush, which he has reportedly been getting on and off lately He had his follow up labs done a couple of weeks ago - to discuss his results [facility] Medical History Overweight (BMI 25.0-29.9) Constipation Atherosclerotic cardiovascular disease Swelling of left lower extremity Vitamin B12 deficiency GERD without esophagitis Anterior chest wall pain Mixed hyperlipidemia Primary insomnia Urinary frequency Neuropathy Vitamin D deficiency Osteoarthritis Lumbar degenerative disc disease Impaired fasting glucose Benign essential hypertension COPD (chronic obstructive pulmonary disease) Headache Epidermoid cyst Surgical History History of cardiac cath History of colonoscopy Family History Father Colon cancer Mother Medical history unknown Social History Housing: Apartment Alcohol intake: former Patient Tobacco Use Status: Current everyday Tobacco user Tobacco use type: Cigarette Cigarettes Per Day: 6 Years Smoked: 30 +/- e-Cigarette/Vaping Use: Never Used Second Hand Smoke Exposure: Yes service: No Current occupational status: disabled Cognitive needs: No Hearing needs: Yes Vision needs: Yes (reading glasses) Questionnaire PHQ-9 Over the last 2 weeks, how often have you been bothered by any of the following problems? 1. Little interest or pleasure in doing things: not at all 2. Feeling down, depressed, or hopeless: not at all 3. Trouble falling or staying asleep, or sleeping too much: not at all 4. Feeling tired or having little energy: not at all 5. Poor appetite or overeating: not at all 6. Feeling bad about yourself - or that you are a failure or have let yourself or your family down: not at all 7. Trouble concentrating on things, such as reading the newspaper or watching television: not at all 8. Moving or speaking so slowly that other people could have noticed. Or the opposite - being so fidgety or restless that you have been moving around a lot more than usual: not at all 9. Thoughts that you would be better off or of hurting yourself in some way: not at all Total score: 0 Depression Screening Interpretation: Negative Depression Screening Done: Yes 24705 - PHQ-9 Billing: Yes Source: Developed by Drs. Ronald Vieira, Yomaira Craig, Sesar Stahl and colleagues, with an educational estelle from [employer]. Thrive Questionnaire Date Thrive assessed: 07/27/23 I am a: Patient What is your living situation today?: I have a steady place to live Within the past 12 months, did the food you bought not last and you didn't have the money to get more?: Never true Within the past 12 months, did you worry whether your food would run out before you got money to buy more?: Never true Do you have trouble paying for medicines?: No Do you have trouble getting transportation to medical appointments?: No Do you have trouble paying your heating and electricity bill?: No Do you have trouble taking care of your child, family member or friend?: No Do you have trouble with day-to-day activities such as bathing, preparing meals, shopping, managing finances, etc.?: No Are you currently unemployed and looking for a job?: No Are you interested in more education?: No Please select the resources that you would like help with: None Currently or been in a relationship where the following occur: no concerns reported THRIVE Score: 0 AUDIT C Alcohol Use Questionnaire (AUDIT-C) 1. How often do you have a drink containing alcohol?: Never 3. How often do you have six or more drinks on one occasion?: Never Total Score: 0 Score Reviewed/Action Taken: Yes SUSIE-7 AMB Questionnaire SUSIE-7 Date SUSIE - 7 assessed: 07/27/23 Feeling nervous, anxious, or on edge: 0 = Not at all Not being able to stop or control worryin = Not at all Worrying too much about different things: 0 = Not at all Trouble relaxin = Not at all Being so restless that it is hard to sit still: 0 = Not at all Becoming easily annoyed or irritable: 0 = Not at all Feeling afraid as if something awful might happen: 0 = Not at all Total SUSIE-7 score (0-4 normal; 5-9 mild; 10-14 moderate; 15-21 severe): 0 Source: Developed by Drs. Ronald Vieira, Yomaira Craig, Sesar Stahl and colleagues, with an educational estelle from [employer]. Review of Systems Const Denies chills, Denies fatigue, Denies fever(s) and Denies headache(s) ENT Details: recurrent oral thrush lately Denies dysphagia, Denies dizziness, Denies otalgia, Denies headache(s), Denies neck pain, Denies odynophagia and Denies sore throat Card Denies chest pain, Denies palpitations and Reports dyspnea on exertion (mild) Resp Denies chest congestion, Reports cough (occasional; coughs up thick whitish phlegm at times), Reports dyspnea on exertion (mild) and Denies wheezing GI Denies abdominal pain, Denies constipation, Denies dysphagia, Denies heartburn, Denies diarrhea, Denies nausea, Denies odynophagia and Denies vomiting Denies hematuria, Denies dysuria, Denies nocturia and Denies urinary frequency Musc Reports back pain (over the lower back - chronic) and Denies neck pain Skin/Breast Denies rash Neuro Denies dizziness and Denies headache(s) Endo Denies fatigue and Denies palpitations Glynn/Lymph Details: recurrent swelling of his left foot and ankle Aller/Immun Denies wheezing Physical exam (Primary Care) Vital Signs: Last Vital Signs Pulse 76 12/08/23 14:03 BP 126/58 L 12/08/23 14:03 Pulse Ox 91 L 12/08/23 14:03 Oxygen Delivery Method Room Air 12/08/23 14:03 BMI result Body Mass Index 29.4 Tobacco/Smoking Status: Tobacco use Status Tobacco use date assessed 12/08/23 12/08/23 14:05 Patient Tobacco Use Status Current everyday Tobacco 12/08/23 14:05 Tobacco use type Cigarette 12/08/23 14:05 e-Cigarette/Vaping Use Never Used 12/08/23 14:05 PHQ-9: PHQ-9 Score PHQ-9: Total score 0 12/08/23 14:46 Depression Screening Interpretation: Negative Thrive Assessment: Date of Thrive Assessment Date Thrive assessed 07/27/23 12/08/23 14:05 Currently or been in a relationship where the following occur: no concerns reported Const General: no acute distress and alert HENMT Ears: TM's normal bilaterally and EAC's normal Throat: Yes posterior oropharynx normal and Yes tonsils normal (no TP congestion noted) Neck Neck: Yes no lymphadenopathy and Yes supple Thyroid: Thyroid normal Resp Auscultation: no rales, no wheezes and diminished lung sounds (significantly) bilateral Cardio Rate: regular rate Rhythm: regular rhythm Heart sounds: no murmurs GI Palpation (GI): Soft to palpation and nontender Auscultation: normal bowel sounds General: Yes no CVA tenderness Back/Spine/Pelvis Back: no CVA tenderness Thoracic/Lumbar Spine: lumbar spinal tenderness Skin Rashes: no rashes Extrem General: Yes no clubbing, cyanosis or edema Results Reviewed Results Reviewed: Laboratory Tests 11/25/23 12:43 WBC 8.4 Hgb 15.8 Hct 46.2 Plt Count 252 Sodium 141 Potassium 4.4 Estimated GFR > 60 Fasting Glucose 113 H Hemoglobin A1c % 5.2 Triglycerides 86 Cholesterol 102 LDL Cholesterol, Calc 44 HDL Cholesterol 41 Laboratory Tests 11/25/23 11/25/23 12:42 12:43 Prostate Specific Ag 2.50 25-OH Vitamin D Total 35.4 TSH 0.98 Ur Specific [place] <= 1.005 Urine Protein Negative Urine Glucose (UA) Negative Urine Blood Negative Urine Nitrite Negative Ur Leukocyte Esterase Negative Assessment and Plan Assessment & Plan (1) Atherosclerotic cardiovascular disease: Code(s): I25.10 - Atherosclerotic heart disease of [place] coronary artery without angina pectoris Plan: Cardiac catheterization done back on 04/01/2021 revealed (+) subtotal occlusion of the right coronary artery with collaterals; no significant disease elsewhere He is currently still on aggressive risk reduction and medical management with dual anti-platelet therapy, long-acting nitrates (Isosorbide mononitrate ER 30 mg QD) and high-dose statins Per cardiology, IF symptoms persist or progress, will then consider intervention of his RCA disease Follow-up with cardiology as scheduled (2) Mixed hyperlipidemia: Code(s): E78.2 - Mixed hyperlipidemia Plan: Results of his labs done a couple of weeks ago reviewed and discussed with patient - his lipids remain at goal Reinforced low cholesterol diet Continue Atorvastatin 80 mg QD - he was taken off Gemfibrozil and started on Atorvastatin after his cardiac cath a few years ago Will recheck his labs and fasting lipids in 4 months for follow up (3) Benign essential hypertension: Code(s): I10 - Essential (primary) hypertension Plan: Reinforced low-sodium diet -? goal is systolic BP of at least 120 to 130 mm or less Continue Losartan 100 mg QD and Amlodipine 5 mg QD (4) COPD (chronic obstructive pulmonary disease): Code(s): J44.9 - Chronic obstructive pulmonary disease, unspecified Qualifiers: COPD type: unspecified COPD Qualified Code(s): J44.9 - Chronic obstructive pulmonary disease, unspecified Plan: Low-dose CT done most recently on 09/18/2023 revealed emphysematous disease and pulmonary parenchymal scarring without interval development of suspicious pulmonary nodule Continue Trelegy Ellipta 1 puff QD, Daliresp 500 mcg tablet once a day and Ventolin HFA 2 puffs 4 times a day as needed; patient also uses his nebulizer with Albuterol solution up to 4 times a day when needed Continue Mucinex ER 600 mg tablet BID PRN to help loosen up his phlegm and make it easier for him to cough up his phlegm Patient also has nocturnal hypoxemia and is encouraged to continue using his oxygen at night consistently when he is sleeping Follow-up with pulmonary (Dr. Jayshree Gibbs) as scheduled (5) Impaired fasting glucose: Code(s): R73.01 - Impaired fasting glucose Plan: Reinforced low calorie diet/exercise as tolerated HgbA1c remained normal at 5.2% on his labs done a couple of weeks ago; FBS was elevated at 113 mg/dl (6) Nephrolithiasis: Code(s): N20.0 - Calculus of kidney Plan: Most recent abdominal CT done revealed a persistent irregular 14 mm calculus in the lower pole of the left kidney He was originally scheduled for kidney stone extraction following ESWL sometime in early May 2023 but it was not done Follow up with urology as scheduled (7) Oral thrush: Code(s): B37.0 - Candidal stomatitis Plan: This is likely due to his steroid inhalers Per request, will start him again on oral Nystatin S/S as instructed (8) Osteoarthritis: Code(s): M19.90 - Unspecified osteoarthritis, unspecified site Qualifiers: Osteoarthritis location: unspecified site Osteoarthritis type: primary Qualified Code(s): M19.91 - Primary osteoarthritis, unspecified site Plan: States that his joint pains remain adequately controlled on Tramadol PRN (9) Lumbar degenerative disc disease: Code(s): M51.36 - Other intervertebral disc degeneration, lumbar region Plan: Reinforced activity and weight lifting restrictions Lumbar spine MRI done in February 2023 revealed (+) multilevel degenerative disc disease MRI revealed (+) mild to moderate spinal canal stenosis at L3-L4 with bilateral subarticular stenosis and compression of the exiting right more than left L3 nerve roots. At L4-L5, there is mild to moderate spinal canal stenosis, bilateral subarticular stenosis with compression of the traversing L5 nerve roots, and severe bilateral neural foraminal stenosis with compression of both exiting L4 nerve roots. There is severe bilateral neural foraminal stenosis with compression of both exiting L5 nerve roots at L5-S1 Continue Tramadol 50 mg 3 times a day with food as needed for back pain; Gabapentin also helps Follow up with pain management as scheduled (10) Neuropathy: Code(s): G62.9 - Polyneuropathy, unspecified Plan: Continue Gabapentin 300 mg BID EMG and NCV done back in June 2016 showed findings of [id number]-[id number] axonal sensory and motor peripheral neuropathy Symptoms are currently reasonably controlled on Gabapentin and patient is advised to call if his symptoms get worse (11) Vitamin D deficiency: Code(s): E55.9 - Vitamin D deficiency, unspecified Plan: Continue Vitamin D3 1000 units QD (12) Constipation: Code(s): K59.00 - Constipation, unspecified Qualifiers: Constipation type: chronic idiopathic constipation Qualified Code(s): K59.04 - Chronic idiopathic constipation Plan: Reinforced increased oral fluids and dietary fiber Continue Amitiza 24 mcg QD Follow-up with GI as scheduled (13) Primary insomnia: Code(s): F51.01 - Primary insomnia Plan: Sleep hygiene reinforced Continue Trazodone 50 mg once a day at bedtime as needed (14) Overweight (BMI 25.0-29.9): Code(s): E66.3 - Overweight Plan: Reinforced diet/lose weight; may exercise as tolerated but advised to stop immediately if he starts to experience increasing chest pain/pressure with activity as he has (+) CAD Plan Follow up in 4 months Orders: Orders Comprehensive [place]. Panel Fast 4 Months E78.00 - Pure hypercholesterolemia, unspecified Complete Blood Count Auto Diff 4 Months D64.9 - Anemia, unspecified Lipid Panel 4 Months E78.00 - Pure hypercholesterolemia, unspecified Medications: Changed From nystatin swish dose in each side of the mouth for a few minutes, then swallow - repeat 3 times a day x 7 to 10 days 500,000 units (5 mL) mucous membrane TID 10 days 150 mL 0RF To nystatin swish dose in each side of the mouth for a few minutes, then swallow - repeat 3 times a day x 7 to 10 days 500,000 units (5 mL) mucous membrane TID 150 mL 0RF 10 days Coding Level of Care Code Est Pt Level 4 (85533) Complex EM visit Add On G2211 Diagnoses Atherosclerotic cardiovascular disease I25.10 Mixed hyperlipidemia E78.2 Benign essential hypertension I10 Chronic obstructive pulmonary disease, unspecified COPD type J44.9 COPD type: unspecified COPD Impaired fasting glucose R73.01 Nephrolithiasis N20.0 Oral thrush B37.0 Primary osteoarthritis, unspecified site M19.91 Osteoarthritis location: unspecified site Osteoarthritis type: primary Lumbar degenerative disc disease M51.36 Neuropathy G62.9 Vitamin D deficiency E55.9 Chronic idiopathic constipation K59.04 Constipation type: chronic idiopathic constipation Primary insomnia F51.01 Overweight (BMI 25.0-29.9) E66.3
== END 2023-12-08 14:52 | disposition home or self-care (01) ==
PROVIDERS: PCP Internal Medicine; Visit Provider Internal Medicine
DX: I25.10 Atherosclerotic heart disease of native coronary artery without angina pectoris (principal); E78.2 Mixed hyperlipidemia; I10 Essential (primary) hypertension; J44.9 Chronic obstructive pulmonary disease, unspecified; R73.01 Impaired fasting glucose; N20.0 Calculus of kidney; B37.0 Candidal stomatitis; M19.91 Primary osteoarthritis, unspecified site; M51.36 Other intervertebral disc degeneration, lumbar region; G62.9 Polyneuropathy, unspecified; E55.9 Vitamin D deficiency, unspecified; K59.04 Chronic idiopathic constipation; F51.01 Primary insomnia; E66.3 Overweight
CPT/HCPCS: 99214; G2211

== ENCOUNTER 2024-01-05 09:57 | Outpatient (AMB) | payer MEDICARE, MEDICAID, SELFPAY ==
--- NOTE | 2024-01-05 09:58 | MHC.OFFVIS ---
Intake Visit Reasons: Discuss ESWL Intake Note: Patient is Present for Telephone Discussion on ESWL Urology Med: Allopurinol, Tamsulosin, Potassium Antibiotic Allergy: None Blood Thinner: Aspirin Manager Document Control Required: No Allergies No Known Allergies Allergy (Verified 01/05/24 09:59) HPI Comments Details: Toby is a pleasant male. He is a patient of Dr. Disla. He seen for the following urologic conditions - inguinal disruption previously - microscopic hematuria - prior negative evaluation with cystoscopy Telemedicine Evaluation 15 min Consultation Augmentra Ara Video Prior discussion regarding ESWL Repeat CT shows resolution of stones on right side. Some changes on size on left side. Would recommend ESWL continuing with medications Continue potassium citrate and allopurinol to try to reduce stone burden Nephrolithiasis Recurrent Imaging - 09/25 KUB left kidney cluster 2.4 cm, right kidney 5 mm in 3 mm On toprimate PFSH Medical History Overweight (BMI 25.0-29.9) Constipation Atherosclerotic cardiovascular disease Swelling of left lower extremity Vitamin B12 deficiency GERD without esophagitis Anterior chest wall pain Mixed hyperlipidemia Primary insomnia Urinary frequency Neuropathy Vitamin D deficiency Osteoarthritis Lumbar degenerative disc disease Impaired fasting glucose Benign essential hypertension COPD (chronic obstructive pulmonary disease) Headache Epidermoid cyst Surgical History History of cardiac cath History of colonoscopy Family History Father Colon cancer Mother Medical history unknown Social History Housing: Apartment Alcohol intake: former Patient Tobacco Use Status: Current everyday Tobacco user Tobacco use type: Cigarette Cigarettes Per Day: 6 Years Smoked: 30 +/- e-Cigarette/Vaping Use: Never Used Second Hand Smoke Exposure: Yes service: No Current occupational status: disabled Cognitive needs: No Hearing needs: Yes Vision needs: Yes (reading glasses) Review of Systems Const All systems reviewed & are unremarkable except as noted in HPI and below Reports no additional complaints Resp Reports no additional complaints GI Reports no additional complaints Reports as per HPI Musc Reports no additional complaints Physical Exam Telemedicine evaluation Appropriate responses Regular breathing rate and rhythm HEENT Head: Yes normal to inspection Ears: hearing grossly normal bilaterally Eyes General: appearance normal, both eyes and all related structures Neck Neck: Yes normal visual inspection Chest Chest palpation & inspection: normal inspection of the chest Resp Effort & Inspection: normal respiratory effort and able to speak in complete sentences Telehealth Telehealth Telehealth Platform: [employer] Location of provider rendering services: practice address Location of patient: address on file Patient Identification confirmed using: Name, : Yes Telehealth method: video Patient verbally consented to treatment: Yes Patient verbally consented to billing insurance company: Yes Patient informed of any privacy concerns related to visit: Yes Minutes spent on Phone/Video with Pt.: 15 Assessment & Plan Assessment & Plan (1) Nephrolithiasis: Code(s): N20.0 - Calculus of kidney Category: Medical Plan Plan ESWL for stone on left side Patient Instructions: Imaging studies, laboratory and physical exam results were discussed and reviewed in detail. No major barriers to patient understanding were identified. An opportunity to ask questions regarding the treatment plan was provided. All questions were answered. The patient expressed understanding and agreement with the above treatment plan. The patient is aware they should contact our office by phone for worsening of their current condition or the appearance of new urologic symptoms. Compliance is encouraged with any medications and followup testing that is ordered. It is a privilege to participate in the urologic care of your patient. If you have any questions or concerns regarding treatment for the above conditions, or other urologic issues, please do not hesitate to contact me. The office telephone contact is [phone]. This note is constructed using voice recognition software. While every effort has been made to ensure accuracy head correction officer errors may have been included. Yours sincerely, Dr Francisco Pizano MD, [facility] - Urology Providers of Expert, Compassionate Care for the Genitourinary System Coding Level of Care Code Tele Est Pt Level 3 (95033) Diagnoses Nephrolithiasis N20.0
== END 2024-01-05 10:51 | disposition home or self-care (01) ==
LOC: HO.HUSH 09:57
PROVIDERS: PCP Internal Medicine; Visit Provider Urology
DX: N20.0 Calculus of kidney (principal)
CPT/HCPCS: 99213

== ENCOUNTER → 2024-01-05 09:57 | Outpatient (BNVA) | payer MEDICARE, MEDICAID, SELFPAY | PROVIDERS: PCP Internal Medicine; Visit Provider Urology ==

== ENCOUNTER 2024-01-19 06:54 | Day surgery (SDC) | payer MEDICARE, MEDICAID, SELFPAY ==
[2024-01-17 11:52] VITALS: BMI 29.8
--- NOTE | 2024-01-18 09:02 | P.CONAN_ITS ---
Documented by User: Nelli Coe NP 01/18/24 09:09 HPI - Anesthesia Eval Consult details Narrative: 64yo M for Lithotripsy ESW Follows [facility] cardiology. Last office visit 10/2023. Deemed High risk for complications r/t cardiac and pulmo disease Follows [facility] pulvt for severe COPD with FEV1 20% nml. Stable and Optimized for procedure per 12/16/23 office visit. PMFSH Active Problems Active Problems: All Active Problems Oral thrush (Acute) Preoperative cardiovascular examination (Acute) Overweight (BMI 25.0-29.9) (Acute) BPH loc w urin obs/LUTS (Acute) Spinal stenosis of lumbar region (Acute) Nicotine dependence (Acute) Nephrolithiasis (Acute) Microhematuria (Acute) Left renal stone (Acute) Muscle spasm of back (Acute) Lumbar radicular pain (Acute) Lumbar degenerative disc disease (Acute) Lumbar spondylosis (Acute) Hydrocele of testis (Acute) Testicular pain, left (Acute) Constipation (Acute) Atherosclerotic cardiovascular disease (Acute) Morbid obesity (Acute) Smoking (Acute) Other and unspecified hyperlipidemia (Acute) Essential hypertension (Acute) Precordial chest pain (Acute) Lymphedema (Acute) Varicose veins of left lower extremity with inflammation (Acute) Encounter for annual wellness exam in Medicare patient (Acute) Swelling of left lower extremity (Acute) Vitamin B12 deficiency (Acute) GERD without esophagitis (Acute) Anterior chest wall pain (Acute) Mixed hyperlipidemia (Acute) Obesity (BMI 30-39.9) (Acute) Primary insomnia (Acute) Urinary frequency (Acute) Neuropathy (Acute) Vitamin D deficiency (Acute) Osteoarthritis (Acute) Lumbar degenerative disc disease (Acute) Impaired fasting glucose (Acute) Benign essential hypertension (Acute) COPD (chronic obstructive pulmonary disease) (Acute) Headache (Acute) Epidermoid cyst (Acute) Past Medical History Medical History Overweight (BMI 25.0-29.9) Constipation Atherosclerotic cardiovascular disease Swelling of left lower extremity Vitamin B12 deficiency GERD without esophagitis Anterior chest wall pain Mixed hyperlipidemia Primary insomnia Urinary frequency Neuropathy Vitamin D deficiency Osteoarthritis Lumbar degenerative disc disease Impaired fasting glucose Benign essential hypertension COPD (chronic obstructive pulmonary disease) Headache Epidermoid cyst Family History Family History Father Colon cancer Mother Medical history unknown Surgical History Surgical History History of total right knee replacement History of cardiac cath History of colonoscopy Social History Social History Housing: Apartment Alcohol intake: former Patient Tobacco Use Status: Current everyday Tobacco user Tobacco use type: Cigarette Cigarettes Per Day: 15 Years Smoked: 30 +/- e-Cigarette/Vaping Use: Never Used Second Hand Smoke Exposure: Yes Use of substances other than those prescribed or required for medical reasons: No Are you DNR?: No Advance Directives: No Advance Directives Information Provided: Yes service: No Current occupational status: disabled Cognitive needs: No Hearing needs: Yes Vision needs: Yes (reading glasses) Meds Allergies Allergy/AdvReac Type Severity Reaction Status Date / Time No Known Allergies Allergy Verified 01/05/24 09:59 Home Medications ?Medication ?Instructions ?Recorded ?Confirmed ?Last Taken ?Type cyanocobalamin (vitamin B-12) 1,000 mcg PO DAILY 12/08/20 12/08/23 Unknown History 1,000 mcg tablet roflumilast 500 mcg tablet 500 mcg PO DAILY 05/20/21 12/08/23 Unknown History (Daliresp) fluticasone fur. 100 mcg-umeclid 1 ea inhalation DAILY 10/19/23 12/08/23 Unknown History 62.5 mcg-vilant 25 mcg inhalat.powder (Trelegy Ellipta) Exam Height,Weight and Vital Signs: Height 6 ft 1 in Weight 102.512 kg Pertinent Lab Results Pertinent Lab Results: Laboratory Tests 11/25/23 12:43 WBC 8.4 Hgb 15.8 Hct 46.2 Plt Count 252 Sodium 141 Potassium 4.4 Chloride 108 Carbon Dioxide 24 BUN 11 Creatinine 0.89 Narrative Narrative: EKG 04/2023 NSR @ 91 RBBB Assessment and Plan Assessment Anesthesia Assessment: Chart Reviewed Documented by User: Le Montiel MD 01/19/24 09:21 HPI - Anesthesia Eval Consult details Narrative: 64yo M for Lithotripsy ESW Follows [facility] cardiology. Last office visit 10/2023. Deemed High risk for complications r/t cardiac and pulmo disease. Procedure Date: 02/28/2021 Procedure Type: Transthoracic Echocardiogram Conclusions: - Normal left ventricular size, thickness, and systolic function. EF >55% - The basal inferior segment is akinetic. - Normal right ventricular cavity size and systolic function. Cardiac cath- 2020: RCA stenosis. Recommended plavix and aspirin. Unclear if plavix ever started. Last dose baby aspirin >1 week ago Follows [facility] for severe COPD with FEV1 20% nml. Stable and Optimized for procedure per 12/16/23 office visit. Still smoking. Last cigarette this morning PMFSH Active Problems Active Problems: All Active Problems Oral thrush (Acute) Preoperative cardiovascular examination (Acute) Overweight (BMI 25.0-29.9) (Acute) BPH loc w urin obs/LUTS (Acute) Spinal stenosis of lumbar region (Acute) Nicotine dependence (Acute) Nephrolithiasis (Acute) Microhematuria (Acute) Left renal stone (Acute) Muscle spasm of back (Acute) Lumbar radicular pain (Acute) Lumbar degenerative disc disease (Acute) Lumbar spondylosis (Acute) Hydrocele of testis (Acute) Testicular pain, left (Acute) Constipation (Acute) Atherosclerotic cardiovascular disease (Acute) Morbid obesity (Acute) Smoking (Acute) Other and unspecified hyperlipidemia (Acute) Essential hypertension (Acute) Precordial chest pain (Acute) Lymphedema (Acute) Varicose veins of left lower extremity with inflammation (Acute) Encounter for annual wellness exam in Medicare patient (Acute) Swelling of left lower extremity (Acute) Vitamin B12 deficiency (Acute) GERD without esophagitis (Acute) Anterior chest wall pain (Acute) Mixed hyperlipidemia (Acute) Obesity (BMI 30-39.9) (Acute) Primary insomnia (Acute) Urinary frequency (Acute) Neuropathy (Acute) Vitamin D deficiency (Acute) Osteoarthritis (Acute) Lumbar degenerative disc disease (Acute) Impaired fasting glucose (Acute) Benign essential hypertension (Acute) COPD (chronic obstructive pulmonary disease) (Acute). Daily inhalers 4x/day. Not used this morning Headache (Acute) Epidermoid cyst (Acute) Denies ELYSE Past Medical History Medical History Overweight (BMI 25.0-29.9) Constipation Atherosclerotic cardiovascular disease Swelling of left lower extremity Vitamin B12 deficiency GERD without esophagitis Anterior chest wall pain Mixed hyperlipidemia Primary insomnia Urinary frequency Neuropathy Vitamin D deficiency Osteoarthritis Lumbar degenerative disc disease Impaired fasting glucose Benign essential hypertension COPD (chronic obstructive pulmonary disease) Headache Epidermoid cyst Family History Family History Father Colon cancer Mother Medical history unknown Family history of problems with anesthesia: No Surgical History Surgical History History of total right knee replacement History of cardiac cath History of colonoscopy History of Problems with Anesthesia: No Social History Social History Housing: Apartment Alcohol intake: former Patient Tobacco Use Status: Current everyday Tobacco user Tobacco use type: Cigarette Cigarettes Per Day: 15 Years Smoked: 30 +/- e-Cigarette/Vaping Use: Never Used Second Hand Smoke Exposure: Yes Use of substances other than those prescribed or required for medical reasons: No Are you DNR?: No Advance Directives: No Advance Directives Information Provided: Yes service: No Current occupational status: disabled Cognitive needs: No Hearing needs: Yes Vision needs: Yes (reading glasses) Meds Allergies Allergy/AdvReac Type Severity Reaction Status Date / Time No Known Allergies Allergy Verified 01/05/24 09:59 Home Medications ?Medication ?Instructions ?Recorded ?Confirmed ?Last Taken ?Type cyanocobalamin (vitamin B-12) 1,000 mcg PO DAILY 12/08/20 12/08/23 Unknown History 1,000 mcg tablet roflumilast 500 mcg tablet 500 mcg PO DAILY 05/20/21 12/08/23 Unknown History (Daliresp) fluticasone fur. 100 mcg-umeclid 1 ea inhalation DAILY 10/19/23 12/08/23 Unknown History 62.5 mcg-vilant 25 mcg inhalat.powder (Trelegy Ellipta) Exam Height,Weight and Vital Signs: Height 6 ft 1 in Weight 102.512 kg Vital Signs Temp Pulse Resp BP Pulse Ox O2 Del Method 01/19/24 07:48 28 H 07/17/24 07:36 16 97 Room Air 01/19/24 07:33 98.6 F 81 16 135/81 90 L Room Air 01/19/24 07:29 80 17 Airway Mallampati Class: II TM Dist: >3cm Neck ROM: Full Denture: Upper Loose/Missing/Broken Teeth: Yes (Upper full denture. Only few teeth bottom. Denies broken or loose teeth) Heart: RRR Lungs: Diminished. Faint wheezes. S/p albuterol respiratory treatment. Pre-treatment Sats 90%(RA) Assessment and Plan Assessment Anesthesia Assessment: Anesthesia Plan Discussed and Chart Reviewed Final Anesthetic Review Family History of Problems with Anesthesia: No History of Problems with Anesthesia: No NPO: Yes ASA Class: III Final Preanesthetic Review: No Changes in Pt Med Stat, Meds/Allgs Chart Reviewed, Consent Obtained/Reviewed and Anes Risks/Benef Reviewed Patient Risk: High Procedure Risk: Low Assessment/Block/Sedation in SS: Assess/Block/Sedation-SS Anesthetic Plan Anesthetic Plan: GA and MAC: Disposition: Standard PACU
[2024-01-19] VITALS (11 sets, daily range): BP systolic 118–135; BP diastolic 61–87; PULSE 80–90; RESP 14–28; TEMP 36.5–37; O2SAT 89–97; BMI 29.9
--- NOTE | ~2024-01-19 | XR_ITS ---
EXAMINATION: XR ABDOMEN KUB CLINICAL INDICATION: Left renal stone. COMPARISON: CT urogram 12/02/2023 TECHNIQUE: 2 views of the abdomen. FINDINGS: Imaged lung bases are clear. The bowel gas pattern is nonobstructive. There is a 2.3 cm calculus/cluster of calculi projecting over the left renal shadow. The renal shadows are mostly obscured by overlying bowel contents. There is evidence of cholelithiasis. XR/XR KUB IMPRESSION: No change in 2.3 cm calculus/cluster of calculi projecting over the left renal shadow.
[2024-01-19] MEDS: Albuterol Sulfate (0.083%) 2.5 MG/3 ML VIAL.NEB INHALE (07:28)
--- NOTE | 2024-01-19 07:38 | PC.NURSE ---
increased airway movement throughout. slight upper lobe congestion. smoker 15 per day.
--- NOTE | 2024-01-19 07:42 | PC.NURSE ---
sob upon exertion
[2024-01-19] MEDS: Lactated Ringers 1,000 ML 999 ML IV (07:57)
--- NOTE | 2024-01-19 07:59 | MHC.SHP ---
Pre-Procedural Eval Section A - 24 Hr Update-Section A only Date of Service: 01/19/24 The patient is an INPATIENT: No Changes since office visit: No Cold of Flu in the past 2 weeks, No New Medical Problems, No Changes in Medication and No Patient answered all questions The patient has been examined within 24 hours of the surgical procedure. The History & Physical has been completed within 30 days and I have reviewed it.: Yes Section B - Complete if H&P > 30 days Chief Complaint: Calculus of kidney Details of Present Illness: left renal stone Relevant Social History: None Present Medications: see Short Stay Collaborative assessment Medical History: Significant History History of Previous Operations: No relevant previous surgery Allergies: Allergies Allergy/AdvReac Type Severity Reaction Status Date / Time No Known Allergies Allergy Verified 01/05/24 09:59 Review of Systems Sugical H&P ROS: Negative: Constitution, Cardiovascular, Respiratory, Neurological, Psychiatric, Hem-Onc, Allergic/Immunologic, Gastrointestinal, Genitourinary, Musculoskeletal, Integumentary, Endocrine and Eyes/Ears/Nose/Throat Exam Surgical H&P Exam: Normal: HEENT, Normal: Heart, Normal: Lungs, Normal: Extremities, Normal: Abdomen, Normal: Skin and Normal: Neurological Plan Diagnosis/Plan: Unchanged (left ESWL) I have reviewed the history and physical and performed a pertinent physical examination on my patient. No changes have occurred unless specified. Time Spent With Patient Time: Total time managing care of this patient today ____ minutes.
[2024-01-19] MEDS: Acetaminophen 1,000 MG/100 ML PIGGYBACK 400 MG IV (08:01)
--- NOTE | 2024-01-19 09:18 | W.PM.OPN ---
Operative Note Operative Note Date of Service: 01/19/24 Narrative: PreOperative Diagnosis: left Renal stones Post Operative Diagnosis: left Renal stones Procedure: left ESWL Surgeon: Dr Francisco Pizano Anesthesia: mac/sedation Indications for procedure: The patient understands ESWL may be a staged procedure and subsequent intervention may be required based on imaging after ESWL. Quoted stone clearance rates for a solitary procedure are in the 70-80% range based primarily on stone location. They also understand there is a risk of bleeding to the kidney, infection, damage to adjacent organs, and stone migration following the procedure. - Imaging 12-15 mm branched Procedure optimization has been performed with IV acetaminophen given in the holding area and 1 L of lactated Ringer's to be given in order to optimize the fluid-stone interface. 20 mg of IV Lasix will be given in the last 5 minutes of the procedure to optimize stone clearance. Procedure: After informed consent was verified the patient was brought to the operating room and placed in a supine position. Anesthesia was performed per protocol. Safety pause time-out was performed. Imaging was displayed in the room and laterality confirmed. ESWL was performed. The 1st 500 shocks were performed at 60 hertz. These were performed with increasing power. Once maximum power was reached the rate was increased to 180 hertz. A total of 2500 shocks were given. Targeted imaging with ultrasound/fluoroscopy showed stone smudging suggestive of disintegration. The patient tolerated the procedure well and was transferred to the recovery area upon completion. Post procedure imaging will be organized. There was no evidence for flank discoloration.
[2024-01-19] MEDS: Albuterol/Iprat 2.5/0.5MG 3 ML AMPUL.NEB INHALE (10:25)
== END 2024-01-19 11:27 | disposition home or self-care (01) ==
PROVIDERS: PCP Internal Medicine; Visit Provider Urology
PROC: (CPT 50590; principal; 2024-01-19 08:50)
DX: N20.0 Calculus of kidney (principal); N40.1 Benign prostatic hyperplasia with lower urinary tract symptoms; R35.0 Frequency of micturition; I10 Essential (primary) hypertension; R73.01 Impaired fasting glucose; I25.10 Atherosclerotic heart disease of native coronary artery without angina pectoris; J44.9 Chronic obstructive pulmonary disease, unspecified; E66.3 Overweight; K21.9 Gastro-esophageal reflux disease without esophagitis; E55.9 Vitamin D deficiency, unspecified; E78.5 Hyperlipidemia, unspecified; M79.89 Other specified soft tissue disorders; Z79.82 Long term (current) use of aspirin; Z79.51 Long term (current) use of inhaled steroids; Z79.899 Other long term (current) drug therapy; Z98.890 Other specified postprocedural states; F17.210 Nicotine dependence, cigarettes, uncomplicated
CPT/HCPCS: 50590; 74018; 94640; J0131; J1596; J2250; J2704; J3010

== ENCOUNTER → 2024-01-19 06:54 | Outpatient (BNV) | payer MEDICARE, MEDICAID, SELFPAY | PROVIDERS: PCP Internal Medicine; Visit Provider Urology | DX: N20.0 Calculus of kidney (principal) | CPT/HCPCS: 50590 ==

== ENCOUNTER 2024-02-14 13:56 | Outpatient (REF) | payer MEDICARE, SELFPAY ==
--- NOTE | ~2024-02-14 | US_ITS ---
EXAMINATION: US RETROPERITONEAL COMPLETE (RENAL) CLINICAL INFORMATION: Renal calculus. COMPARISON: KUB dated 01/19/2024; CT urogram dated 11/22/2023; renal ultrasound dated 06/08/2023. TECHNIQUE: Real-time imaging of the kidneys and bladder. FINDINGS: RIGHT KIDNEY: 11.5 x 5.6 x 5.6 cm (SAG x AP x TRV). The kidney is normal in size, contour, and echogenicity. Renal cortical thickness is normal. No focal parenchymal lesions. At the interpolar aspect, a 5 mm nonobstructing calculus is seen. At the lower pole, a 3 mm nonobstructing calculus is seen. No hydronephrosis. LEFT KIDNEY: 10.2 x 6.1 x 4.7 cm (SAG x AP x TRV). The kidney is normal in size, contour, and echogenicity. Renal cortical thickness is normal. No focal parenchymal lesions. At the lower pole, 6 mm and 6 mm nonobstructing calculi are seen. No hydronephrosis. US/US renal BI IMPRESSION: There are nonobstructing bilateral renal calculi. No hydronephrosis or mass is noted. Electronically signed by: True Browning MD 03/02/2024 11:45 AM EDT Workstation: -[id number]
== END 2024-02-14 13:57 | disposition home or self-care (01) ==
LOC: HO.US 13:56
PROVIDERS: PCP Internal Medicine; Visit Provider Urology
DX: N20.0 Calculus of kidney (principal)
CPT/HCPCS: 76775

== ENCOUNTER 2024-02-29 11:27 | Outpatient (REF) | payer MEDICARE, MEDICAID, SELFPAY ==
[2024-03-07 19:25] LABS: Stone Source KIDNEY STONE
== END 2024-02-29 11:28 | disposition home or self-care (01) ==
LOC: HO.LAB 11:27
PROVIDERS: PCP Internal Medicine; Visit Provider Urology
DX: N20.0 Calculus of kidney (principal)
CPT/HCPCS: 81003; 82365; 88300; 99212

== ENCOUNTER 2024-02-29 11:27 | Outpatient (AMB) | payer MEDICARE, MEDICAID, SELFPAY ==
--- NOTE | 2024-02-29 11:28 | MHC.OFFVIS ---
Intake Visit Reasons: ESWL-Ultrasound(set) Intake Note: Patient is present for ESWL-Ultrasound Urology Medication:tamsulosin, allopurinol Antibiotic Allergy:none Blood Thinner:aspirin [employer] Required: No Allergies No Known Allergies Allergy (Verified 02/29/24 11:29) HPI Comments Details: Toby is a pleasant male. He is a patient of Dr. Disla. He seen for the following urologic conditions - inguinal disruption previously - microscopic hematuria - prior negative evaluation with cystoscopy Good response to ESWL Continue with allopurinol and potassium citrate 12 month follow-up Encourage fluid intake with lemon therapy Nephrolithiasis Recurrent Imaging - 09/25 KUB left kidney cluster 2.4 cm, right kidney 5 mm in 3 mm - 02/25 renal ultrasound right kidney 3 mm, left kidney 4 mm [facility] Medical History Overweight (BMI 25.0-29.9) Constipation Atherosclerotic cardiovascular disease Swelling of left lower extremity Vitamin B12 deficiency GERD without esophagitis Anterior chest wall pain Mixed hyperlipidemia Primary insomnia Urinary frequency Neuropathy Vitamin D deficiency Osteoarthritis Lumbar degenerative disc disease Impaired fasting glucose Benign essential hypertension COPD (chronic obstructive pulmonary disease) Headache Epidermoid cyst Surgical History History of total right knee replacement History of cardiac cath History of colonoscopy Family History Father Colon cancer Mother Medical history unknown Social History Housing: Apartment Alcohol intake: former Patient Tobacco Use Status: Current everyday Tobacco user Tobacco use type: Cigarette Cigarettes Per Day: 15 Years Smoked: 30 +/- e-Cigarette/Vaping Use: Never Used Second Hand Smoke Exposure: Yes service: No Current occupational status: disabled Cognitive needs: No Hearing needs: Yes Vision needs: Yes (reading glasses) Review of Systems Const Denies chills and Denies fever(s) Card Reports no additional complaints and Denies syncope Resp Denies cough GI Denies abdominal pain and Denies heartburn Reports as per HPI and Denies change in libido Neuro Denies syncope Psych Denies change in libido Endo Denies change in libido Physical Exam Const General: cooperative, healthy appearing, comfortable and no acute distress Orientation/consciousness: patient oriented x3 HEENT Face and sinus: Yes normal facial exam Mouth: moist mucous membranes Neck Neck: Yes normal visual inspection, Yes full ROM and Yes trachea midline Chest Chest palpation & inspection: normal inspection of the chest Resp Effort & Inspection: normal respiratory effort, able to speak in complete sentences and no respiratory distress GI Inspection: Yes normal to inspection Back/Spine/Pelvis Cervical Spine: normal cervical lordosis Thoracic/Lumbar Spine: thoracic and lumbar spine normal to inspection Skin General skin exam: no rashes or lesions noted Neuro General: patient oriented x3, gait normal, tone normal and moves all extremities Extrem General: Yes normal to inspection and Yes capillary refill normal Results AMB Urinalysis, Automated UA Leukoctes 0 Lila/uL Last Edit by PATRICIA Leary on 02/29/24 11:46 UA Nitrite Negative Last Edit by PATRICIA eLary on 02/29/24 11:46 UA Urobilinogen 1 mg/dL Last Edit by PATRICIA Leary on 02/29/24 11:46 UA Protein 15 mg/dL Last Edit by Bo Mckinnon CCM on 02/29/24 11:46 UA pH 6.5 Last Edit by PATRICIA Leary on 02/29/24 11:46 UA Blood 0 Kevin/uL Last Edit by PATRICIA Leary on 02/29/24 11:46 UA Specific [place] 1.015 Last Edit by PATRICIA Leary on 02/29/24 11:46 UA Ketone Negative Last Edit by PATRICIA Leary on 02/29/24 11:46 UA Bilirubin 1 mg/dL Last Edit by PATRICIA Leary on 02/29/24 11:46 UA Glucose 0 mg/dL Last Edit by Bo Mckinnon CCM on 02/29/24 11:46 Results Reviewed Results Reviewed: Laboratory Last Values Urine pH (Auto) 6.5 02/29/24 11:45 Specific [place] (Auto) 1.015 02/29/24 11:45 Urine Protein (Auto) 15 mg/dL 02/29/24 11:45 Glucose (UA)(Auto) 0 mg/dL 02/29/24 11:45 Urine Ketones (Auto) Negative 02/29/24 11:45 Urine Blood (Auto) 0 Kevin/uL 02/29/24 11:45 Urine Nitrite (Auto) Negative 02/29/24 11:45 Urine Bilirubin (Auto) 1 mg/dL 02/29/24 11:45 Urine Urobilinogen (Auto) 1 mg/dL 02/29/24 11:45 Leukocyte Esterase (Auto) 0 Lila/uL 02/29/24 11:45 Assessment & Plan Assessment & Plan (1) Nephrolithiasis: Code(s): N20.0 - Calculus of kidney Category: Medical Plan Twelve month follow-up imaging Orders: Orders US renal BI 12 Months N20.0 - Calculus of kidney Surgical Today N20.0 - Calculus of kidney AMB Urinalysis Automated Today Z13.9 - Encounter for screening, unspecified Medications: Discontinued naproxen Discontinued Reason: Patient Completed Course 500 mg PO BID 7 days PRN 14 tabs 0RF pain Patient Instructions: Imaging studies, laboratory and physical exam results were discussed and reviewed in detail. No major barriers to patient understanding were identified. An opportunity to ask questions regarding the treatment plan was provided. All questions were answered. The patient expressed understanding and agreement with the above treatment plan. The patient is aware they should contact our office by phone for worsening of their current condition or the appearance of new urologic symptoms. Compliance is encouraged with any medications and followup testing that is ordered. It is a privilege to participate in the urologic care of your patient. If you have any questions or concerns regarding treatment for the above conditions, or other urologic issues, please do not hesitate to contact me. The office telephone contact is [phone]. This note is constructed using voice recognition software. While every effort has been made to ensure accuracy servicing rep errors may have been included. Yours sincerely, Dr Francisco Pizano MD, [facility] - Urology Providers of Expert, Compassionate Care for the Genitourinary System Coding Level of Care Code Est Pt Level 3 (97267) Diagnoses Nephrolithiasis N20.0
== END 2024-02-29 12:05 | disposition home or self-care (01) ==
PROVIDERS: PCP Internal Medicine; Visit Provider Urology
DX: Z13.9 Encounter for screening, unspecified (principal); N20.0 Calculus of kidney
CPT/HCPCS: 99024

== ENCOUNTER 2024-04-10 13:30 | Outpatient (AMB) | payer MEDICARE, MEDICAID, SELFPAY ==
[2024-04-10 13:33] VITALS: BP 126/78; PULSE 101; O2SAT 91
--- NOTE | 2024-04-10 13:33 | MHC.PC.OV ---
Vital Signs 04/10/24 13:33 Height 6 ft Weight 221 lb BMI 30.0 BP 126/78 Blood Pressure Location Lt brachial Position Sitting Pulse 101 H Pulse Source Pulse Oximeter Pulse Oximetry (%) 91 L Oxygen Delivery Method Room Air Intake Visit Reasons: COPD, hyperlipidemia, HTN Administrative Representative Required: No Accompanied by: Self / Same As Patient Allergies No Known Allergies Allergy (Verified 04/10/24 14:04) Medication List - Last Reconciled 04/10/24 by Sanju Disla MD albuterol sulfate 90 mcg/actuation (Ventolin HFA) 2 puffs inhalation Q6H PRN albuterol sulfate 2.5 mg (3 mL) continuous nebulization QID PRN allopurinol 100 mg PO DAILY 90 days amlodipine 5 mg PO DAILY aspirin 81 mg PO DAILY atorvastatin 80 mg PO DAILY bisacodyl (Gentle Laxative (bisacodyl)) 10 mg (2 x 5 mg) PO BEDTIME cholecalciferol (vitamin D3) (Vitamin D3) 25 mcg PO DAILY cyanocobalamin (vitamin B-12) 1,000 mcg PO DAILY docusate sodium 100 mg PO BEDTIME famotidine (Pepcid) 20 mg PO BEDTIME 90 days kusikqrduzl-sxytjavrg-clzcuyoh 100-62.5-25 mcg (Trelegy Ellipta) 1 ea inhalation DAILY guaifenesin ER (Mucinex) 600 mg PO Q12H PRN isosorbide mononitrate ER 30 mg PO DAILY lidocaine 5% 1 patch topical DAILY 30 days losartan 100 mg PO DAILY methocarbamol 500 mg PO BID PRN 30 days methylcellulose (laxative) (Citrucel) 500 mg PO DAILY nitroglycerin 0.4 mg sublingual Q5M nystatin 500,000 units (5 mL) mucous membrane TID 10 days oxycodone 5 mg PO Q8H PRN 3 days pantoprazole 40 mg PO DAILY potassium citrate ER 20 mEq (2 x 10 mEq (1,080 mg)) PO BID 90 days roflumilast (Daliresp) 500 mcg PO DAILY tamsulosin 0.4 mg PO BEDTIME 14 days tamsulosin 0.4 mg PO DAILY topiramate 25 mg PO DAILY Tobacco use date assessed: 04/10/24 Fall risk assessment: No Falls in past year Last assessed Fall Risk: 04/10/24 Dental Screening Dental Screen Date: 04/10/24 Did you have a dental visit in the last 12 months?: No Did you have a dental problem in the last 6 months where you did not have access to dental care?: No Was dental information given to patient?: Patient has dentist HPI COPD, hyperlipidemia, HTN HPI Details Patient comes in today for his follow up visit States that he feels okay Relates that he has been experiencing recurrent nasal congestion lately that seems to be worse at night He denies any fever or sore throat and denies any recent cough/cold symptoms He denies any headaches or dizziness Denies any chest pains, no increased SOB No nausea/vomiting, no abdominal pain No change in bowel habits noted He was not able to get his follow up labs done prior to his appointment today - states that he just completely forgot about them [facility] Medical History (Updated 04/10/24 @ 15:29 by Sanju Disla MD) Allergic rhinitis Overweight (BMI 25.0-29.9) Constipation Atherosclerotic cardiovascular disease Swelling of left lower extremity Vitamin B12 deficiency GERD without esophagitis Anterior chest wall pain Mixed hyperlipidemia Primary insomnia Urinary frequency Neuropathy Vitamin D deficiency Osteoarthritis Lumbar degenerative disc disease Impaired fasting glucose Benign essential hypertension COPD (chronic obstructive pulmonary disease) Headache Epidermoid cyst Surgical History History of total right knee replacement History of cardiac cath History of colonoscopy Family History Father Colon cancer Mother Medical history unknown Social History Housing: Apartment Alcohol intake: former Patient Tobacco Use Status: Current everyday Tobacco user Tobacco use type: Cigarette Cigarettes Per Day: 15 Years Smoked: 30 +/- e-Cigarette/Vaping Use: Never Used Second Hand Smoke Exposure: Yes service: No Current occupational status: disabled Cognitive needs: No Hearing needs: Yes Vision needs: Yes (reading glasses) Questionnaire PHQ-9 Over the last 2 weeks, how often have you been bothered by any of the following problems? 1. Little interest or pleasure in doing things: not at all 2. Feeling down, depressed, or hopeless: not at all 3. Trouble falling or staying asleep, or sleeping too much: not at all 4. Feeling tired or having little energy: not at all 5. Poor appetite or overeating: not at all 6. Feeling bad about yourself - or that you are a failure or have let yourself or your family down: not at all 7. Trouble concentrating on things, such as reading the newspaper or watching television: not at all 8. Moving or speaking so slowly that other people could have noticed. Or the opposite - being so fidgety or restless that you have been moving around a lot more than usual: not at all 9. Thoughts that you would be better off or of hurting yourself in some way: not at all Total score: 0 Depression Screening Interpretation: Negative Depression Screening Done: Yes 38827 - PHQ-9 Billing: Yes Source: Developed by Drs. Ronald Vieira, Yomaira Craig, Sesar Stahl and colleagues, with an educational estelle from [employer]. Thrive Questionnaire Date Thrive assessed: 04/10/24 I am a: Patient What is your living situation today?: I have a steady place to live Within the past 12 months, did the food you bought not last and you didn't have the money to get more?: Never true Within the past 12 months, did you worry whether your food would run out before you got money to buy more?: Never true Do you have trouble paying for medicines?: No Do you have trouble getting transportation to medical appointments?: No Do you have trouble paying your heating and electricity bill?: No Do you have trouble taking care of your child, family member or friend?: No Do you have trouble with day-to-day activities such as bathing, preparing meals, shopping, managing finances, etc.?: No Are you currently unemployed and looking for a job?: I choose not to answer this question Are you interested in more education?: No Please select the resources that you would like help with: None Currently or been in a relationship where the following occur: No concerns reported THRIVE Score: 0 AUDIT C Alcohol Use Questionnaire (AUDIT-C) 1. How often do you have a drink containing alcohol?: Never 3. How often do you have six or more drinks on one occasion?: Never Total Score: 0 Score Reviewed/Action Taken: Yes SUSIE-7 AMB Questionnaire SUSIE-7 Date SUSIE - 7 assessed: 04/10/24 Feeling nervous, anxious, or on edge: 0 = Not at all Not being able to stop or control worryin = Not at all Worrying too much about different things: 0 = Not at all Trouble relaxin = Not at all Being so restless that it is hard to sit still: 0 = Not at all Becoming easily annoyed or irritable: 0 = Not at all Feeling afraid as if something awful might happen: 0 = Not at all Total SUSIE-7 score (0-4 normal; 5-9 mild; 10-14 moderate; 15-21 severe): 0 Source: Developed by Drs. Ronald Vieira, Yomaira Craig, Sesar Stahl and colleagues, with an educational estelle from [employer]. Review of Systems Const Denies chills, Denies fatigue, Denies fever(s) and Denies headache(s) ENT Denies dysphagia, Denies dizziness, Denies otalgia, Denies headache(s), Reports nasal congestion (on and off, worse at night), Denies neck pain, Denies odynophagia and Denies sore throat Card Denies chest pain, Denies palpitations and Reports dyspnea on exertion (mild) Resp Denies chest congestion, Reports cough (occasional; coughs up thick whitish phlegm at times), Reports dyspnea on exertion (mild) and Denies wheezing GI Denies abdominal pain, Denies constipation, Denies dysphagia, Denies heartburn, Denies diarrhea, Denies nausea, Denies odynophagia and Denies vomiting Denies hematuria, Denies dysuria, Denies nocturia and Denies urinary frequency Musc Reports back pain (over the lower back - chronic) and Denies neck pain Skin/Breast Denies rash Neuro Denies dizziness and Denies headache(s) Endo Denies fatigue and Denies palpitations Glynn/Lymph Details: recurrent swelling of his left foot and ankle Aller/Immun Reports seasonal rhinorrhea and Denies wheezing Physical exam (Primary Care) Vital Signs: Last Vital Signs Pulse 101 H 04/10/24 13:33 BP 126/78 04/10/24 13:33 Pulse Ox 91 L 04/10/24 13:33 Oxygen Delivery Method Room Air 04/10/24 13:33 BMI result Body Mass Index 30.0 Tobacco/Smoking Status: Tobacco use Status Tobacco use date assessed 04/10/24 04/10/24 13:35 Patient Tobacco Use Status Current everyday Tobacco 04/10/24 13:35 Tobacco use type Cigarette 04/10/24 13:35 e-Cigarette/Vaping Use Never Used 04/10/24 13:35 PHQ-9: PHQ-9 Score PHQ-9: Total score 0 04/10/24 13:35 Depression Screening Interpretation: Negative Thrive Assessment: Date of Thrive Assessment Date Thrive assessed 04/10/24 04/10/24 13:35 Currently or been in a relationship where the following occur: No concerns reported Const General: no acute distress and alert HENMT Ears: TM's normal bilaterally and EAC's normal Throat: Yes posterior oropharynx normal and Yes tonsils normal (no TP congestion noted) Neck Neck: Yes no lymphadenopathy and Yes supple Thyroid: Thyroid normal Resp Auscultation: no rales, no wheezes and diminished lung sounds (significantly) bilateral Cardio Rate: regular rate Rhythm: regular rhythm Heart sounds: no murmurs GI Palpation (GI): Soft to palpation and nontender Auscultation: normal bowel sounds General: Yes no CVA tenderness Back/Spine/Pelvis Back: no CVA tenderness Thoracic/Lumbar Spine: lumbar spinal tenderness Skin Rashes: no rashes Extrem General: Yes no clubbing, cyanosis or edema Coding Level of Care Code Est Pt Level 4 (42819) Diagnoses Atherosclerotic cardiovascular disease I25.10 Mixed hyperlipidemia E78.2 Benign essential hypertension I10 Chronic obstructive pulmonary disease, unspecified COPD type J44.9 COPD type: unspecified COPD Impaired fasting glucose R73.01 Allergic rhinitis, unspecified seasonality, unspecified trigger J30.9 Allergic rhinitis trigger: unspecified Allergic rhinitis seasonality: unspecified Nephrolithiasis N20.0 Primary osteoarthritis, unspecified site M19.91 Osteoarthritis location: unspecified site Osteoarthritis type: primary Degeneration of intervertebral disc of lumbar region with discogenic back pain M51.360 Disc-related pain type: discogenic back pain only Neuropathy G62.9 Vitamin D deficiency E55.9 Chronic idiopathic constipation K59.04 Constipation type: chronic idiopathic constipation Primary insomnia F51.01 Overweight (BMI 25.0-29.9) E66.3 Assessment & Plan Assessment & Plan (1) Atherosclerotic cardiovascular disease: Code(s): I25.10 - Atherosclerotic heart disease of [place] coronary artery without angina pectoris Category: Medical Plan: Cardiac catheterization done back on 04/01/2021 revealed (+) subtotal occlusion of the right coronary artery with collaterals; no significant disease elsewhere He is currently still on aggressive risk reduction and medical management with dual anti-platelet therapy, long-acting nitrates (Isosorbide mononitrate ER 30 mg QD) and high-dose statins Per cardiology, IF symptoms persist or progress, will then consider intervention of his RCA disease Follow-up with cardiology as scheduled (2) Mixed hyperlipidemia: Code(s): E78.2 - Mixed hyperlipidemia Category: Medical Plan: Patient was not able to get his follow up labs done prior to his appointment today As his previous cholesterol numbers have been well-controlled and at goal for a while now, will allow him to skip his labs this time Reinforced low cholesterol diet Continue Atorvastatin 80 mg QD - he was taken off Gemfibrozil and started on Atorvastatin after his cardiac cath a few years ago Will recheck his labs and fasting lipids in 4 months for follow up (3) Benign essential hypertension: Code(s): I10 - Essential (primary) hypertension Category: Medical Plan: Reinforced low-sodium diet -? goal is systolic BP of at least 120 to 130 mm or less Continue Losartan 100 mg QD and Amlodipine 5 mg QD (4) COPD (chronic obstructive pulmonary disease): Code(s): J44.9 - Chronic obstructive pulmonary disease, unspecified Category: Medical Qualifiers: COPD type: unspecified COPD Qualified Code(s): J44.9 - Chronic obstructive pulmonary disease, unspecified Plan: Low-dose CT done on 09/18/2023 revealed (+) emphysematous disease and pulmonary parenchymal scarring without interval development of suspicious pulmonary nodules Continue Trelegy Ellipta 1 puff QD, Daliresp 500 mcg tablet once a day and Ventolin HFA 2 puffs 4 times a day as needed; patient also uses his nebulizer with Albuterol solution up to 4 times a day when needed Continue Mucinex ER 600 mg tablet BID PRN to help loosen up his phlegm and make it easier for him to cough up his phlegm Patient also has nocturnal hypoxemia and is encouraged to continue using his oxygen at night consistently when he is sleeping Follow-up with pulmonary (Dr. Jayshree Gibbs) as scheduled (5) Impaired fasting glucose: Code(s): R73.01 - Impaired fasting glucose Category: Medical Plan: Reinforced low calorie diet/exercise as tolerated His HgbA1c remained normal at 5.2% on his labs when they were previously checked; FBS was elevated then at 113 mg/dl Will recheck these again in 4 months for follow up (6) Allergic rhinitis: Code(s): J30.9 - Allergic rhinitis, unspecified Category: Medical Qualifiers: Allergic rhinitis trigger: unspecified Allergic rhinitis seasonality: unspecified Qualified Code(s): J30.9 - Allergic rhinitis, unspecified Plan: Patient is advised that his symptoms are likely due to fall allergies Will start him on Fluticasone 50 mcg nasal spray QD PRN (7) Nephrolithiasis: Code(s): N20.0 - Calculus of kidney Category: Medical Plan: Abdominal CT done in November 2023 revealed a persistent irregular 14 mm calculus in the lower pole of the left kidney He was originally scheduled for kidney stone extraction following ESWL sometime in early May 2023 but it was not done He eventually had ESWL done in January 2024 Repeat US in February 2024 revealed (+) nonobstructing bilateral renal calculi. No hydronephrosis or mass is noted Follow up with urology as scheduled (8) Osteoarthritis: Code(s): M19.90 - Unspecified osteoarthritis, unspecified site Category: Medical Qualifiers: Osteoarthritis location: unspecified site Osteoarthritis type: primary Qualified Code(s): M19.91 - Primary osteoarthritis, unspecified site Plan: Patient states that his joint pains remain adequately controlled on Tramadol PRN (9) Lumbar degenerative disc disease: Code(s): M51.36 - Other intervertebral disc degeneration, lumbar region Category: Medical Qualifiers: Disc-related pain type: discogenic back pain only Qualified Code(s): M51.360 - Other intervertebral disc degeneration, lumbar region with discogenic back pain only Plan: Reinforced activity and weight lifting restrictions Lumbar spine MRI done in February 2023 revealed (+) multilevel degenerative disc disease MRI revealed (+) mild to moderate spinal canal stenosis at L3-L4 with bilateral subarticular stenosis and compression of the exiting right more than left L3 nerve roots. At L4-L5, there is mild to moderate spinal canal stenosis, bilateral subarticular stenosis with compression of the traversing L5 nerve roots, and severe bilateral neural foraminal stenosis with compression of both exiting L4 nerve roots. There is severe bilateral neural foraminal stenosis with compression of both exiting L5 nerve roots at L5-S1 Continue Tramadol 50 mg 3 times a day with food as needed for back pain; Gabapentin also helps Follow up with pain management as scheduled (10) Neuropathy: Code(s): G62.9 - Polyneuropathy, unspecified Category: Medical Plan: Continue Gabapentin 300 mg BID EMG and NCV done back in June 2016 showed findings of [id number] axonal sensory and motor peripheral neuropathy Symptoms are currently reasonably controlled on Gabapentin and patient is advised to call if his symptoms get worse (11) Vitamin D deficiency: Code(s): E55.9 - Vitamin D deficiency, unspecified Category: Medical Plan: Continue Vitamin D3 1000 units QD (12) Constipation: Code(s): K59.00 - Constipation, unspecified Category: Medical Qualifiers: Constipation type: chronic idiopathic constipation Qualified Code(s): K59.04 - Chronic idiopathic constipation Plan: Reinforced increased oral fluids and dietary fiber Continue Amitiza 24 mcg QD Follow-up with GI as scheduled (13) Primary insomnia: Code(s): F51.01 - Primary insomnia Category: Medical Plan: Sleep hygiene reinforced Continue Trazodone 50 mg once a day at bedtime as needed (14) Overweight (BMI 25.0-29.9): Code(s): E66.3 - Overweight Category: Medical Plan: Reinforced diet/lose weight; may exercise as tolerated but advised to stop immediately if he starts to experience increasing chest pain/pressure with activity as he has (+) CAD Plan Follow up in 4 months Orders: Orders TSH reflex Free T4 08/05/24 E78.00 - Pure hypercholesterolemia, unspecified UA CC w/rflx Micro + Cult 08/05/24 R30.0 - Dysuria Vitamin D 25-OH Total 08/05/24 E55.9 - Vitamin D deficiency, unspecified Complete Blood Count Auto Diff 08/05/24 D64.9 - Anemia, unspecified Lipid Panel 08/05/24 E78.00 - Pure hypercholesterolemia, unspecified Comprehensive [place]. Panel Fast 08/05/24 E78.00 - Pure hypercholesterolemia, unspecified Medications: New fluticasone propionate 50 mcg/actuation administer into each nostril 2 sprays intranasal DAILY 30 days PRN 16 grams 5RF allergy symptoms
== END 2024-04-10 14:13 | disposition home or self-care (01) ==
PROVIDERS: PCP Internal Medicine; Visit Provider Internal Medicine
DX: I25.10 Atherosclerotic heart disease of native coronary artery without angina pectoris (principal); E78.2 Mixed hyperlipidemia; I10 Essential (primary) hypertension; J44.9 Chronic obstructive pulmonary disease, unspecified; R73.01 Impaired fasting glucose; J30.9 Allergic rhinitis, unspecified; N20.0 Calculus of kidney; M19.91 Primary osteoarthritis, unspecified site; M51.360 Other intervertebral disc degeneration, lumbar region with discogenic back pain only; G62.9 Polyneuropathy, unspecified; E55.9 Vitamin D deficiency, unspecified; K59.04 Chronic idiopathic constipation; F51.01 Primary insomnia; E66.3 Overweight

== ENCOUNTER → 2024-04-10 13:30 | Outpatient (BNVA) | payer MEDICARE, MEDICAID, SELFPAY | PROVIDERS: PCP Internal Medicine; Visit Provider Internal Medicine | DX: I10 Essential (primary) hypertension (principal); E78.2 Mixed hyperlipidemia; J44.9 Chronic obstructive pulmonary disease, unspecified; R73.01 Impaired fasting glucose; I25.10 Atherosclerotic heart disease of native coronary artery without angina pectoris; J30.9 Allergic rhinitis, unspecified; N20.0 Calculus of kidney | CPT/HCPCS: 99212 ==

== ENCOUNTER 2024-04-19 14:16 | Outpatient (AMB) | payer MEDICARE, MEDICAID, SELFPAY ==
[2024-04-19 14:31] VITALS: BP 136/74; PULSE 78; O2SAT 92
--- NOTE | 2024-04-19 14:31 | A.OFFVIS_ITS ---
Vital Signs 04/19/24 14:31 Height 6 ft Weight 221 lb BMI 30.0 BP 136/74 Blood Pressure Location Lt brachial Position Sitting Pulse 78 Pulse Source Pulse Oximeter Pulse Oximetry (%) 92 Oxygen Delivery Method Room Air Intake Visit Reasons: 6 month follow up Intake Note: Relevant Flags or Indicators ? Requires Convex Grinder? Drea Luis presents in office today for a scheduled 6 mos FUV. CC; Since last visit; labs ordered ? done (via PCP). Rx ordered ? yes (pantoprazole). Diagnostics/images ordered ? done (other specialties). Relevant GI Sx as reported per pt? None ?Hx of any recent surgeries? Lithotripsy via Dr. Pizano. Convex Grinder Required: No Accompanied by: Family/Other Allergies No Known Allergies Allergy (Verified 04/19/24 14:31) HPI HPI 6 month follow up: Details: LAST VISIT: Constipation GERD without esophagitis Plan Continue pantoprazole every morning half an hour before breakfast. Avoid dietary triggers and late night snacking. Avoid alcohol. Smoking cessation encouraged. Patient can continue current regimen with his bowels. Increase fluid intake and activity to promote better bowel motility. Patient will return in the office in 6 months. [facility]. He will call our office if he will have any GI concerning symptoms. He is agreeable to this plan and verbalizes understanding of instructions. He was given the opportunity to ask questions and all questions answered. ? Than you for allowing me to participate in his care Medications Refilled pantoprazole take every morning 30 minutes before breakfast 40 mg PO DAILY 90 tabs 4RF K21.9 TODAY'S VISIT: Patient is here today for follow-up. Patient is accompanied by his . He reports that he has been doing well since last visit. Denies any abdominal pain or discomfort. Patient reports that he is moving his bowels better now and he no longer has abdominal bloating. Takes pantoprazole in the morning and for the most part he is doing well. Denies any dyspepsia, dysphagia or odynophagia. Denies acid reflux. For the most part feels like it is controlled. Patient no longer is taking famotidine at night time as he has no symptoms. Patient denies eating late at night. [facility] Medical History Allergic rhinitis Overweight (BMI 25.0-29.9) Constipation Atherosclerotic cardiovascular disease Swelling of left lower extremity Vitamin B12 deficiency GERD without esophagitis Anterior chest wall pain Mixed hyperlipidemia Primary insomnia Urinary frequency Neuropathy Vitamin D deficiency Osteoarthritis Lumbar degenerative disc disease Impaired fasting glucose Benign essential hypertension COPD (chronic obstructive pulmonary disease) Headache Epidermoid cyst Surgical History History of total right knee replacement History of cardiac cath History of colonoscopy Family History Father Colon cancer Mother Medical history unknown Social History Housing: Apartment Alcohol intake: former Patient Tobacco Use Status: Current everyday Tobacco user Tobacco use type: Cigarette Cigarettes Per Day: 15 Years Smoked: 30 +/- e-Cigarette/Vaping Use: Never Used Second Hand Smoke Exposure: Yes service: No Current occupational status: disabled Cognitive needs: No Hearing needs: Yes Vision needs: Yes (reading glasses) Review of Systems Const Denies weight gain and Denies weight loss ENT Reports no additional complaints, Denies dysphagia and Denies odynophagia Card Reports no additional complaints Resp Reports no additional complaints GI Denies abdominal pain, Denies belching, Denies melena, Denies bloating, Denies change in bowel habits, Denies dysphagia, Denies excessive flatus, Denies dyspepsia, Reports heartburn (Occasional), Denies diarrhea, Denies loose stools, Denies nausea, Denies odynophagia and Denies vomiting Reports no additional complaints Musc Reports no additional complaints Neuro Reports no additional complaints Psych Reports no additional complaints Endo Reports no additional complaints Physical Exam Vital Signs: Last Vital Signs Pulse 78 04/19/24 14:31 BP 136/74 04/19/24 14:31 Pulse Ox 92 10/16/24 14:31 Oxygen Delivery Method Room Air 04/19/24 14:31 BMI result Body Mass Index 30.0 Const General: no acute distress Nutritional Appearance: obese Orientation/consciousness: patient oriented x3 HEENT Head: Yes normal to inspection, Yes normocephalic and Yes atraumatic Face and sinus: Yes normal facial exam Mouth: Normal oral and palatal mucosa present Throat: Yes posterior oropharynx normal, Yes tonsils normal and Yes uvula midline Eyes General: appearance normal, both eyes and all related structures Neck Neck: Yes normal visual inspection, Yes full ROM and Yes trachea midline Thyroid: Thyroid normal Resp Effort & Inspection: normal respiratory effort, able to speak in complete sentences, no tracheal deviation and symmetric chest movement Auscultation: clear to auscultation bilaterally Cardio Rate: regular rate Heart sounds: S1 normal heart sound present and S2 normal heart sound present GI Inspection: Yes normal to inspection, No distended and Yes obesity Palpation (GI): Soft to palpation, not firm, nontender and No hepatosplenomegaly present Auscultation: normal bowel sounds General: Yes no CVA tenderness Back/Spine/Pelvis Back: no CVA tenderness Skin General skin exam: elasticity normal, turgor normal and dry skin Neuro General: patient oriented x3 Psych Appearance: grossly normal Mental Status: mental status grossly normal Assessment & Plan Assessment & Plan (1) Constipation: Code(s): K59.00 - Constipation, unspecified Category: Medical Qualifiers: Constipation type: chronic idiopathic constipation Qualified Code(s): K59.04 - Chronic idiopathic constipation (2) GERD without esophagitis: Code(s): K21.9 - Gastro-esophageal reflux disease without esophagitis Category: Medical Plan Continue pantoprazole. Avoid dietary triggers and late night snacking. Staying upright for minimum 3 hours after meals discussed with patient. Continue taking bowel regimen. Patient is tolerating Dulcolax and Colace well. Increase fluid intake and activity to promote better bowel motility. Low-salt, low-fat, low carb and high-protein diet recommended. Patient will follow-up in our office in 6 months, sooner on as needed basis. He is agreeable to this plan and verbalizes understanding of instructions. He was given the opportunity to ask questions and all questions answered. Thank you for allowing me to participate in his care Medications: Refilled bisacodyl (Gentle Laxative (bisacodyl)) 10 mg (2 x 5 mg) PO BEDTIME 180 tabs 3RF docusate sodium 100 mg PO BEDTIME 90 caps 3RF K59.00 - Constipation, unspecified Discontinued famotidine take one tablet before going to bed Discontinued Reason: Patient no longer taking 20 mg PO BEDTIME 90 days 90 tabs 1RF K21.9 - Gastro-esophageal reflux disease without esophagitis Coding Level of Care Code Est Pt Level 3 (58589) Diagnoses Chronic idiopathic constipation K59.04 Constipation type: chronic idiopathic constipation GERD without esophagitis K21.9 Time Spent (min) 25 Comment 15 minutes spent with patient and additional 10 minutes spent reviewing his records
== END 2024-04-19 15:31 | disposition home or self-care (01) ==
PROVIDERS: PCP Internal Medicine; Visit Provider Nurse Practitioner Family
DX: K59.04 Chronic idiopathic constipation (principal); K21.9 Gastro-esophageal reflux disease without esophagitis
CPT/HCPCS: 99213

== ENCOUNTER → 2024-04-19 14:16 | Outpatient (BNVA) | payer MEDICARE, MEDICAID, SELFPAY | PROVIDERS: PCP Internal Medicine; Visit Provider Nurse Practitioner Family | DX: K21.9 Gastro-esophageal reflux disease without esophagitis (principal); K59.04 Chronic idiopathic constipation; F17.210 Nicotine dependence, cigarettes, uncomplicated | CPT/HCPCS: 99212 ==

== ENCOUNTER 2024-04-27 13:22 | Outpatient (AMB) | payer MEDICARE, MEDICAID, SELFPAY ==
[2024-04-27 13:34] VITALS: BP 140/72; PULSE 76; BMI 30.4
--- NOTE | 2024-04-27 13:34 | A.OFFVIS_ITS ---
Vital Signs 04/27/24 13:34 Height 6 ft Weight 223 lb 15.834 oz BMI 30.4 BP 140/72 H Blood Pressure Location Lt brachial Position Sitting Pulse 76 Pulse Source Monitor Intake Visit Reasons: 6 mth f/up Quality Assurance Intern Required: No Accompanied by: Spouse Allergies No Known Allergies Allergy (Verified 04/19/24 14:31) Medication List - Last Reconciled 04/27/24 by Esdras Thorpe MD albuterol sulfate 90 mcg/actuation (Ventolin HFA) 2 puffs inhalation Q6H PRN albuterol sulfate 2.5 mg (3 mL) continuous nebulization QID PRN allopurinol 100 mg PO DAILY 90 days amlodipine 5 mg PO DAILY aspirin 81 mg PO DAILY atorvastatin 80 mg PO DAILY bisacodyl (Gentle Laxative (bisacodyl)) 10 mg (2 x 5 mg) PO BEDTIME cholecalciferol (vitamin D3) (Vitamin D3) 25 mcg PO DAILY cyanocobalamin (vitamin B-12) 1,000 mcg PO DAILY docusate sodium 100 mg PO BEDTIME fluticasone propionate 50 mcg/actuation 2 sprays intranasal DAILY PRN 30 days hdnqnbarskf-zkrvrqdyv-tunqemhs 200-62.5-25 mcg (Trelegy Ellipta) 1 ea inhalation DAILY guaifenesin ER (Mucinex) 600 mg PO Q12H PRN isosorbide mononitrate ER 30 mg PO DAILY lidocaine 5% 1 patch topical DAILY 30 days losartan 100 mg PO DAILY methocarbamol 500 mg PO BID PRN 30 days methylcellulose (laxative) (Citrucel) 500 mg PO DAILY nitroglycerin 0.4 mg sublingual Q5M nystatin 500,000 units (5 mL) mucous membrane TID 10 days oxycodone 5 mg PO Q8H PRN 3 days pantoprazole 40 mg PO DAILY potassium citrate ER 20 mEq (2 x 10 mEq (1,080 mg)) PO BID 90 days roflumilast (Daliresp) 500 mcg PO DAILY tamsulosin 0.4 mg PO BEDTIME 14 days tamsulosin 0.4 mg PO DAILY topiramate 25 mg PO DAILY HPI Comments Details: Toby returns for follow-up regarding coronary artery disease. He also has advanced COPD. He underwent cardiac catheterization that showed right coronary artery disease, but he was having lot of respiratory symptoms and coughing and hence no intervention was performed. He is on medications for stable coronary disease. Unfortunately, he is still smoking. Has significant COPD at baseline. Overall, no new complaints. No angina. Shortness of breath is just about the same as before. Otherwise, no new concerns. [facility] Medical History Allergic rhinitis Overweight (BMI 25.0-29.9) Constipation Atherosclerotic cardiovascular disease Swelling of left lower extremity Vitamin B12 deficiency GERD without esophagitis Anterior chest wall pain Mixed hyperlipidemia Primary insomnia Urinary frequency Neuropathy Vitamin D deficiency Osteoarthritis Lumbar degenerative disc disease Impaired fasting glucose Benign essential hypertension COPD (chronic obstructive pulmonary disease) Headache Epidermoid cyst Surgical History History of total right knee replacement History of cardiac cath History of colonoscopy Family History Father Colon cancer Mother Medical history unknown Social History Housing: Apartment Alcohol intake: former Patient Tobacco Use Status: Current everyday Tobacco user Tobacco use type: Cigarette Cigarettes Per Day: 15 Years Smoked: 30 +/- e-Cigarette/Vaping Use: Never Used Second Hand Smoke Exposure: Yes service: No Current occupational status: disabled Cognitive needs: No Hearing needs: Yes Vision needs: Yes (reading glasses) Review of Systems Const Denies chills, Denies fatigue, Denies fever(s), Denies frequent falls, Denies weakness, Denies weight gain and Denies weight loss ENT Denies dizziness Card Denies chest pain, Denies leg edema, Denies lightheadedness, Denies palpitations, Denies dyspnea and Denies dyspnea on exertion Resp Denies cough, Denies dyspnea and Denies dyspnea on exertion GI Denies hematochezia Musc Denies abnormal gait, Denies muscle weakness, Denies numbness, Denies radiating pain into limb and Denies tingling Neuro Denies abnormal gait, Denies dizziness, Denies frequent falls, Denies numbness, Denies tingling and Denies weakness Endo Denies fatigue and Denies palpitations Physical Exam Vital Signs: Last Vital Signs Pulse 76 10/24/24 13:34 BP 140/72 H 10/24/24 13:34 BMI result Body Mass Index 30.4 Const General: comfortable and no acute distress Orientation/consciousness: patient oriented x3 HEENT Other: Unremarkable Head: Yes normal to inspection Neck Neck: Yes normal visual inspection Chest Chest palpation & inspection: normal inspection of the chest Resp Auscultation: wheezes and diminished lung sounds Cardio Palpation: normal PMI Heart sounds: S1 normal heart sound present, S2 normal heart sound present, no gallops, no murmurs and no rubs GI Palpation (GI): Soft to palpation Back/Spine/Pelvis Other: unremarkable Skin General skin exam: no rashes or lesions noted Neuro General: patient oriented x3 Extrem General: Yes normal to inspection Psych Mental Status: mental status grossly normal Office Procedures EKG Details: EKG with underlying sinus rhythm; 76/Min; right bundle-branch block pattern. [id number], Complete Assessment & Plan Assessment & Plan (1) Atherosclerotic cardiovascular disease: Code(s): I25.10 - Atherosclerotic heart disease of [place] coronary artery without angina pectoris Category: Medical (2) Essential hypertension: Code(s): I10 - Essential (primary) hypertension Category: Medical (3) Other and unspecified hyperlipidemia: Code(s): E78.5 - Hyperlipidemia, unspecified Category: Medical (4) Smoking: Code(s): F17.200 - Nicotine dependence, unspecified, uncomplicated Category: Social Hx (5) Morbid obesity: Code(s): E66.01 - Morbid (severe) obesity due to excess calories Category: Medical (6) COPD (chronic obstructive pulmonary disease): Code(s): J44.9 - Chronic obstructive pulmonary disease, unspecified Category: Medical Qualifiers: COPD type: unspecified COPD Qualified Code(s): J44.9 - Chronic obstructive pulmonary disease, unspecified Plan Cardiac studies reviewed. Echocardiogram with normal LVEF, basal inferior akinesis. Dobutamine myocardial perfusion imaging study shows fixed inferior defect thought to be from prior infarct versus diaphragmatic attenuation versus some components of both. Cardiac catheterization shows subtotal occlusion of the right coronary artery with collaterals, no significant disease elsewhere. On medical therapy only. For meds, continue aspirin, long-acting nitrates, amlodipine, losartan, statins. Last LDL 44 mg/dL. Triglycerides 86 mg/dL. With regard to smoking extremely unlikely he will stop and it has been discussed several times. Coding Level of Care Code Est Pt Level 4 (28200) Diagnoses Atherosclerotic cardiovascular disease I25.10 Essential hypertension I10 Other and unspecified hyperlipidemia E78.5 Smoking F17.200 Morbid obesity E66.01 Chronic obstructive pulmonary disease, unspecified COPD type J44.9 COPD type: unspecified COPD CPT Codes EKG - CPT: 90482-[id number], Complete ([id number])
== END 2024-04-27 13:53 | disposition home or self-care (01) ==
PROVIDERS: PCP Internal Medicine; Visit Provider Internal Medicine
DX: I25.10 Atherosclerotic heart disease of native coronary artery without angina pectoris (principal); I10 Essential (primary) hypertension; E78.5 Hyperlipidemia, unspecified; F17.200 Nicotine dependence, unspecified, uncomplicated; E66.01 Morbid (severe) obesity due to excess calories; J44.9 Chronic obstructive pulmonary disease, unspecified
CPT/HCPCS: 93010; 99214

== ENCOUNTER → 2024-04-27 13:22 | Outpatient (BNVA) | payer MEDICARE, MEDICAID, SELFPAY | PROVIDERS: PCP Internal Medicine; Visit Provider Internal Medicine | DX: I25.10 Atherosclerotic heart disease of native coronary artery without angina pectoris (principal); I10 Essential (primary) hypertension; J44.9 Chronic obstructive pulmonary disease, unspecified; E78.5 Hyperlipidemia, unspecified; E66.01 Morbid (severe) obesity due to excess calories; F17.210 Nicotine dependence, cigarettes, uncomplicated; Z68.30 Body mass index [BMI] 30.0-30.9, adult | CPT/HCPCS: 93005; 99212 ==

== ENCOUNTER 2024-05-29 10:03 | Outpatient (AMB) | payer MEDICARE, MEDICAID, SELFPAY ==
[2024-05-29 10:10] VITALS: BP 112/64; PULSE 114; O2SAT 93; BMI 30.1
--- NOTE | 2024-05-29 10:10 | MHC.PC.OV ---
Vital Signs 05/29/24 10:10 Height 6 ft Weight 222 lb BMI 30.1 BP 112/64 Blood Pressure Location Lt brachial Position Sitting Pulse 114 H Pulse Source Pulse Oximeter Pulse Oximetry (%) 93 Oxygen Delivery Method Room Air Intake Visit Reasons: [facility] 05/19 chest pain Seismograph Chief Required: No Accompanied by: Self / Same As Patient Allergies No Known Allergies Allergy (Verified 05/29/24 11:05) Medication List - Last Reconciled 05/29/24 by Sanju Disla MD albuterol sulfate 90 mcg/actuation (Ventolin HFA) 2 puffs inhalation Q6H PRN albuterol sulfate 2.5 mg (3 mL) continuous nebulization QID PRN allopurinol 100 mg PO DAILY 90 days amlodipine 5 mg PO DAILY aspirin 81 mg PO DAILY atorvastatin 80 mg PO DAILY bisacodyl (Gentle Laxative (bisacodyl)) 10 mg (2 x 5 mg) PO BEDTIME cholecalciferol (vitamin D3) (Vitamin D3) 25 mcg PO DAILY cyanocobalamin (vitamin B-12) 1,000 mcg PO DAILY docusate sodium 100 mg PO BEDTIME fluticasone propionate 50 mcg/actuation 2 sprays intranasal DAILY PRN 30 days qfmrlxsreax-uficriruq-hczxanse 200-62.5-25 mcg (Trelegy Ellipta) 1 ea inhalation DAILY isosorbide mononitrate ER 30 mg PO DAILY losartan 100 mg PO DAILY nitroglycerin 0.4 mg sublingual Q5M potassium citrate ER 20 mEq (2 x 10 mEq (1,080 mg)) PO BID 90 days roflumilast (Daliresp) 500 mcg PO DAILY tamsulosin 0.4 mg PO BEDTIME 14 days Tobacco use date assessed: 05/29/24 Fall risk assessment: No Falls in past year Last assessed Fall Risk: 05/29/24 Dental Screening Dental Screen Date: 05/29/24 Did you have a dental visit in the last 12 months?: No Did you have a dental problem in the last 6 months where you did not have access to dental care?: No Was dental information given to patient?: No HPI [facility] 05/19 chest pain HPI Details Patient comes in today for his F follow up visit States that he was just discharged from [facility] about a week ago on 05/21/2024 He was initially brought to the ER at [facility] for chest pains that reportedly first occurred when he was eating dinner earlier on the night of 05/14/2024 Notes that his symptoms were more of a pressure-like sensation on the left side of his chest that did not radiate up into his jaw or into his left arm He took some sublingual nitroglycerin, which relieve some of his symptoms so his family called EMS A second dose of nitroglycerin then completely relieved his symptoms He was then brought to the ER for further evaluation Cardiac workups done at the ER reportedly came back negative but he was also noted to be in mild COPD exacerbation at the time and this was treated while he was in the emergency room Further testing was done -echocardiogram revealed an EF of 50-55% with hypokinesis to the lateral wall Patient then underwent a nuclear stress test with dobutamine that resulted in a decreased ejection fraction to 39% Due to these abnormalities, he was then subsequently transferred to [facility] for further evaluation While at [facility], he underwent cardiac catheterization on 05/19/2024 which revealed normal EDP and coronary anatomy remains unchanged from 2020 and he has well-established COURTESY CLERK of RCA and recommended to continue with current medical management He was subsequently discharged back home with instructions to follow-up with his PCP and with Cardiology regularly on an outpatient basis Patient states that he currently feels okay and has not had any recurrence of symptoms since he was discharged from the hospital last week He denies any headaches or dizziness Denies any chest pains, no increased shortness of breath No nausea/vomiting, no abdominal pain No change in bowel habits noted PFSH Medical History Allergic rhinitis Overweight (BMI 25.0-29.9) Constipation Atherosclerotic cardiovascular disease Swelling of left lower extremity Vitamin B12 deficiency GERD without esophagitis Anterior chest wall pain Mixed hyperlipidemia Primary insomnia Urinary frequency Neuropathy Vitamin D deficiency Osteoarthritis Lumbar degenerative disc disease Impaired fasting glucose Benign essential hypertension COPD (chronic obstructive pulmonary disease) Headache Epidermoid cyst Surgical History History of total right knee replacement History of cardiac cath History of colonoscopy Family History Father Colon cancer Mother Medical history unknown Social History Housing: Apartment Alcohol intake: former Patient Tobacco Use Status: Current everyday Tobacco user Tobacco use type: Cigarette Cigarettes Per Day: 15 Years Smoked: 30 +/- e-Cigarette/Vaping Use: Never Used Second Hand Smoke Exposure: Yes service: No Current occupational status: disabled Cognitive needs: No Hearing needs: Yes Vision needs: Yes (reading glasses) Questionnaire PHQ-9 Over the last 2 weeks, how often have you been bothered by any of the following problems? 1. Little interest or pleasure in doing things: not at all 2. Feeling down, depressed, or hopeless: not at all 3. Trouble falling or staying asleep, or sleeping too much: not at all 4. Feeling tired or having little energy: not at all 5. Poor appetite or overeating: not at all 6. Feeling bad about yourself - or that you are a failure or have let yourself or your family down: not at all 7. Trouble concentrating on things, such as reading the newspaper or watching television: not at all 8. Moving or speaking so slowly that other people could have noticed. Or the opposite - being so fidgety or restless that you have been moving around a lot more than usual: not at all 9. Thoughts that you would be better off or of hurting yourself in some way: not at all Total score: 0 Depression Screening Interpretation: Negative Depression Screening Done: Yes 23947 - PHQ-9 Billing: Yes Source: Developed by Drs. Ronald Vieira, Yomaira Craig, Sesar Stahl and colleagues, with an educational estelle from [email or web address]. Thrive Questionnaire Date Thrive assessed: 05/29/24 I am a: Patient What is your living situation today?: I have a steady place to live Within the past 12 months, did the food you bought not last and you didn't have the money to get more?: Never true Within the past 12 months, did you worry whether your food would run out before you got money to buy more?: Never true Do you have trouble paying for medicines?: No Do you have trouble getting transportation to medical appointments?: No Do you have trouble paying your heating and electricity bill?: No Do you have trouble taking care of your child, family member or friend?: No Do you have trouble with day-to-day activities such as bathing, preparing meals, shopping, managing finances, etc.?: No Are you currently unemployed and looking for a job?: I choose not to answer this question Are you interested in more education?: No Please select the resources that you would like help with: None Currently or been in a relationship where the following occur: No concerns reported THRIVE Score: 0 AUDIT C Alcohol Use Questionnaire (AUDIT-C) 1. How often do you have a drink containing alcohol?: Never 3. How often do you have six or more drinks on one occasion?: Never Total Score: 0 Score Reviewed/Action Taken: Yes SUSIE-7 AMB Questionnaire SUSIE-7 Date SUSIE - 7 assessed: 05/29/24 Feeling nervous, anxious, or on edge: 0 = Not at all Not being able to stop or control worryin = Not at all Worrying too much about different things: 0 = Not at all Trouble relaxin = Not at all Being so restless that it is hard to sit still: 0 = Not at all Becoming easily annoyed or irritable: 0 = Not at all Feeling afraid as if something awful might happen: 0 = Not at all Total SUSIE-7 score (0-4 normal; 5-9 mild; 10-14 moderate; 15-21 severe): 0 Source: Developed by Drs. Ronald Vieira, Yomaira Craig, Sesar Stahl and colleagues, with an educational estelle from [email or web address]. Review of Systems Const Denies chills, Denies fatigue, Denies fever(s) and Denies headache(s) ENT Denies dysphagia, Denies dizziness, Denies otalgia, Denies headache(s), Denies neck pain, Denies odynophagia and Denies sore throat Card Denies chest pain, Denies palpitations and Reports dyspnea on exertion (mild) Resp Denies chest congestion, Reports cough (occasional; coughs up thick whitish phlegm at times), Reports dyspnea on exertion (mild) and Denies wheezing GI Denies abdominal pain, Denies constipation, Denies dysphagia, Denies heartburn, Denies diarrhea, Denies nausea, Denies odynophagia and Denies vomiting Denies hematuria, Denies dysuria, Denies nocturia and Denies urinary frequency Musc Reports back pain (over the lower back - chronic) and Denies neck pain Skin/Breast Denies rash Neuro Denies dizziness and Denies headache(s) Endo Denies fatigue and Denies palpitations Glynn/Lymph Details: recurrent swelling of his left foot and ankle Aller/Immun Reports seasonal rhinorrhea and Denies wheezing Physical exam (Primary Care) Vital Signs: Last Vital Signs Pulse 114 H 05/29/24 10:10 BP 112/64 05/29/24 10:10 Pulse Ox 93 05/29/24 10:10 Oxygen Delivery Method Room Air 05/29/24 10:10 BMI result Body Mass Index 30.1 Tobacco/Smoking Status: Tobacco use Status Tobacco use date assessed 05/29/24 05/29/24 10:16 Patient Tobacco Use Status Current everyday Tobacco 05/29/24 10:16 Tobacco use type Cigarette 05/29/24 10:16 e-Cigarette/Vaping Use Never Used 05/29/24 10:16 PHQ-9: PHQ-9 Score PHQ-9: Total score 0 05/29/24 11:19 Depression Screening Interpretation: Negative Thrive Assessment: Date of Thrive Assessment Date Thrive assessed 05/29/24 05/29/24 10:16 Currently or been in a relationship where the following occur: No concerns reported Const General: no acute distress and alert HENMT Ears: TM's normal bilaterally and EAC's normal Throat: Yes posterior oropharynx normal and Yes tonsils normal (no TP congestion noted) Neck Neck: Yes no lymphadenopathy and Yes supple Thyroid: Thyroid normal Resp Auscultation: no rales, no wheezes and diminished lung sounds (significantly) bilateral Cardio Rate: regular rate Rhythm: regular rhythm Heart sounds: no murmurs GI Palpation (GI): Soft to palpation and nontender Auscultation: normal bowel sounds General: Yes no CVA tenderness Back/Spine/Pelvis Back: no CVA tenderness Thoracic/Lumbar Spine: lumbar spinal tenderness Skin Rashes: no rashes Extrem General: Yes no clubbing, cyanosis or edema Coding Level of Care Code Est Pt Level 4 (33079) Diagnoses Chest pain, unspecified type R07.9 Chest pain type: unspecified Atherosclerotic cardiovascular disease I25.10 Mixed hyperlipidemia E78.2 Essential hypertension I10 Chronic obstructive pulmonary disease, unspecified COPD type J44.9 COPD type: unspecified COPD Impaired fasting glucose R73.01 Allergic rhinitis, unspecified seasonality, unspecified trigger J30.9 Allergic rhinitis trigger: unspecified Allergic rhinitis seasonality: unspecified Nephrolithiasis N20.0 Primary osteoarthritis, unspecified site M19.91 Osteoarthritis location: unspecified site Osteoarthritis type: primary Degeneration of intervertebral disc of lumbar region with discogenic back pain M51.360 Disc-related pain type: discogenic back pain only Neuropathy G62.9 Vitamin D deficiency E55.9 Chronic idiopathic constipation K59.04 Constipation type: chronic idiopathic constipation Primary insomnia F51.01 Overweight (BMI 25.0-29.9) E66.3 Additional Codes PHQ-9 - 22054 - PHQ-9 Billing: Yes ([id number]) Assessment & Plan Assessment & Plan (1) Chest pain: Code(s): R07.9 - Chest pain, unspecified Category: Medical Qualifiers: Chest pain type: unspecified Qualified Code(s): R07.9 - Chest pain, unspecified Plan: Patient initially presented to the ER at [facility] (brought in by EMS) for chest pain a couple of weeks ago on 05/14/2024 Initial cardiac workups revealed a decrease in his ejection fraction on dobutamine stress testing He was subsequently transferred to [facility] for further evaluation and cardiac catheterization He eventually underwent cardiac catheterization on 05/19/2024, which showed normal EDP and coronary anatomy that was unchanged from 2020 with well-established COURTESY CLERK of RCA He was then advised to continue with current medical management (2) Atherosclerotic cardiovascular disease: Code(s): I25.10 - Atherosclerotic heart disease of [place] coronary artery without angina pectoris Category: Medical Plan: Cardiac catheterization done back on 04/01/2021 revealed (+) subtotal occlusion of the right coronary artery with collaterals; no significant disease elsewhere Repeat cardiac catheterization done a couple of weeks ago on 05/19/2024 revealed normal EDP with coronary anatomy unchanged from 2020 and with well-established COURTESY CLERK of RCA He was recommended to continue with aggressive risk reduction and medical management with dual anti-platelet therapy, long-acting nitrates (Isosorbide mononitrate ER 30 mg QD) and high-dose statins Per cardiology, IF symptoms persist or progress, will then consider intervention of his RCA disease Follow-up with cardiology as scheduled (3) Mixed hyperlipidemia: Code(s): E78.2 - Mixed hyperlipidemia Category: Medical Plan: Reinforced low cholesterol diet Continue Atorvastatin 80 mg QD - he was taken off Gemfibrozil and started on Atorvastatin after his cardiac cath a few years ago in 2020 Will recheck his labs and fasting lipids as originally scheduled in 2 to 3 months for follow up (4) Essential hypertension: Code(s): I10 - Essential (primary) hypertension Category: Medical Plan: Reinforced low-sodium diet -? goal is systolic BP of at least 120 to 130 mm or less Continue Losartan 100 mg QD and Amlodipine 5 mg QD (5) COPD (chronic obstructive pulmonary disease): Code(s): J44.9 - Chronic obstructive pulmonary disease, unspecified Category: Medical Qualifiers: COPD type: unspecified COPD Qualified Code(s): J44.9 - Chronic obstructive pulmonary disease, unspecified Plan: Low-dose CT done on 09/18/2023 revealed (+) emphysematous disease and pulmonary parenchymal scarring without interval development of suspicious pulmonary nodules Continue Trelegy Ellipta 1 puff QD, Daliresp 500 mcg tablet once a day and Ventolin HFA 2 puffs 4 times a day as needed; patient also uses his nebulizer with Albuterol solution up to 4 times a day when needed Continue Mucinex ER 600 mg tablet BID PRN to help loosen up his phlegm and make it easier for him to cough up his phlegm Patient also has nocturnal hypoxemia and is encouraged to continue using his oxygen at night consistently when he is sleeping Follow-up with pulmonary (Dr. Jayshree Gibbs) as scheduled (6) Impaired fasting glucose: Code(s): R73.01 - Impaired fasting glucose Category: Medical Plan: Reinforced low calorie diet/exercise as tolerated His HgbA1c remained normal at 5.2% on his labs when they were previously checked; FBS was elevated then at 113 mg/dl Will recheck these again in 2 to 3 months for follow up (7) Allergic rhinitis: Code(s): J30.9 - Allergic rhinitis, unspecified Category: Medical Qualifiers: Allergic rhinitis trigger: unspecified Allergic rhinitis seasonality: unspecified Qualified Code(s): J30.9 - Allergic rhinitis, unspecified Plan: Continue Fluticasone 50 mcg nasal spray QD PRN (8) Nephrolithiasis: Code(s): N20.0 - Calculus of kidney Category: Medical Plan: Abdominal CT done in November 2023 revealed a persistent irregular 14 mm calculus in the lower pole of the left kidney He was originally scheduled for kidney stone extraction following ESWL sometime in early May 2023 but it was not done He eventually had ESWL done in January 2024 Repeat US in February 2024 revealed (+) nonobstructing bilateral renal calculi. No hydronephrosis or mass is noted Follow up with urology as scheduled (9) Osteoarthritis: Code(s): M19.90 - Unspecified osteoarthritis, unspecified site Category: Medical Qualifiers: Osteoarthritis location: unspecified site Osteoarthritis type: primary Qualified Code(s): M19.91 - Primary osteoarthritis, unspecified site Plan: Patient states that his joint pains remain adequately controlled on Tramadol PRN (10) Lumbar degenerative disc disease: Code(s): M51.36 - Other intervertebral disc degeneration, lumbar region Category: Medical Qualifiers: Disc-related pain type: discogenic back pain only Qualified Code(s): M51.360 - Other intervertebral disc degeneration, lumbar region with discogenic back pain only Plan: Reinforced activity and weight lifting restrictions Lumbar spine MRI done in February 2023 revealed (+) multilevel degenerative disc disease MRI revealed (+) mild to moderate spinal canal stenosis at L3-L4 with bilateral subarticular stenosis and compression of the exiting right more than left L3 nerve roots. At L4-L5, there is mild to moderate spinal canal stenosis, bilateral subarticular stenosis with compression of the traversing L5 nerve roots, and severe bilateral neural foraminal stenosis with compression of both exiting L4 nerve roots. There is severe bilateral neural foraminal stenosis with compression of both exiting L5 nerve roots at L5-S1 Continue Tramadol 50 mg 3 times a day with food as needed for back pain; Gabapentin also helps Follow up with pain management as scheduled (11) Neuropathy: Code(s): G62.9 - Polyneuropathy, unspecified Category: Medical Plan: Continue Gabapentin 300 mg BID EMG and NCV done back in June 2016 showed findings of [id number] axonal sensory and motor peripheral neuropathy Symptoms are currently reasonably controlled on Gabapentin and patient is advised to call if his symptoms get worse (12) Vitamin D deficiency: Code(s): E55.9 - Vitamin D deficiency, unspecified Category: Medical Plan: Continue Vitamin D3 1000 units QD (13) Constipation: Code(s): K59.00 - Constipation, unspecified Category: Medical Qualifiers: Constipation type: chronic idiopathic constipation Qualified Code(s): K59.04 - Chronic idiopathic constipation Plan: Reinforced increased oral fluids and dietary fiber Continue Amitiza 24 mcg QD Follow-up with GI as scheduled (14) Primary insomnia: Code(s): F51.01 - Primary insomnia Category: Medical Plan: Sleep hygiene reinforced Continue Trazodone 50 mg once a day at bedtime as needed (15) Overweight (BMI 25.0-29.9): Code(s): E66.3 - Overweight Category: Medical Plan: Reinforced diet/lose weight; may exercise as tolerated but advised to stop immediately if he starts to experience increasing chest pain/pressure with activity as he has (+) CAD Plan Follow-up as scheduled in August 2024
== END 2024-05-29 12:08 | disposition home or self-care (01) ==
PROVIDERS: PCP Internal Medicine; Visit Provider Internal Medicine
DX: R07.9 Chest pain, unspecified (principal); J44.9 Chronic obstructive pulmonary disease, unspecified; I25.10 Atherosclerotic heart disease of native coronary artery without angina pectoris; E78.2 Mixed hyperlipidemia; I10 Essential (primary) hypertension; R73.01 Impaired fasting glucose; J30.9 Allergic rhinitis, unspecified; N20.0 Calculus of kidney; M19.91 Primary osteoarthritis, unspecified site; M51.360 Other intervertebral disc degeneration, lumbar region with discogenic back pain only; G62.9 Polyneuropathy, unspecified; E55.9 Vitamin D deficiency, unspecified

== ENCOUNTER → 2024-05-29 10:03 | Outpatient (BNVA) | payer MEDICARE, MEDICAID, SELFPAY | PROVIDERS: PCP Internal Medicine; Visit Provider Internal Medicine | DX: R07.9 Chest pain, unspecified (principal); I25.10 Atherosclerotic heart disease of native coronary artery without angina pectoris; I10 Essential (primary) hypertension; E78.2 Mixed hyperlipidemia; J44.9 Chronic obstructive pulmonary disease, unspecified; R73.01 Impaired fasting glucose; N20.0 Calculus of kidney; M19.91 Primary osteoarthritis, unspecified site; M51.360 Other intervertebral disc degeneration, lumbar region with discogenic back pain only; G62.9 Polyneuropathy, unspecified; E55.9 Vitamin D deficiency, unspecified; K59.04 Chronic idiopathic constipation; F51.01 Primary insomnia | CPT/HCPCS: 96127; 99212 ==

== ENCOUNTER 2024-08-15 06:45 | Outpatient (REF) | payer MEDICARE, MEDICAID, SELFPAY ==
[2024-08-15 06:56] LABS: MANUAL DIFF FLAG NO
[2024-08-15 07:28] LABS: Basophils Absolute Auto 0.1 X10*3/uL (0.0-0.2); Basophils Percent Auto 0.4 % (0-2); Eosinophils Absolute Auto 0.1 X10*3/uL (0.0-0.4); Eosinophils Percent Auto 0.5 % (0-4); Hematocrit 44.7 % (42.0-52.0); Hemoglobin 15.1 g/dl (14.0-18.0); Imm Gran Abs Auto 0.16 X10*3/uL (0.00-0.03); Imm Gran Pct Auto 1.1 % (0.0-0.4); Lymphocytes Absolute Auto 2.6 X10*3/uL (1.2-4.9); Lymphocytes Percent Auto 18.7 % (20-40); Mean Corpuscular HGB Conc 33.8 g/dl (31.0-36.0); Mean Corpuscular Hemoglobin 30.6 pg (27.0-33.0); Mean Corpuscular Volume 90.5 fL (80.0-98.0); Mean Platelet Volume 8.9 fL (9.4-12.4); Monocytes Absolute Auto 1.2 X10*3/uL (0.1-1.2); Monocytes Percent Auto 8.5 % (2-11); Neutrophils Absolute Auto 9.9 x10*3/uL (2.0-8.3); Neutrophils Percent Auto 70.8 % (45-73); Platelet Count 273 X10*3/uL (160-400); Red Blood Count 4.94 X10*6/uL (4.60-5.80); Red Cell Distribution Width 12.7 % (11.0-16.0)
[2024-08-15 07:42] LABS: Appearance Urine Clear; Color Urine Yellow; Glucose Urine UA Negative (Negative); Leukocyte Esterase Urine Negative (Negative); Nitrite Urine Negative (Negative); Specific Gravity - Urine 1.015 (1.005-1.025); Urine Blood Negative (Negative); Urine Ketones Negative (Negative); Urine Protein Negative (Neg-Trace)
[2024-08-15 08:06] LABS: Albumin Level 3.7 g/dL (3.5-5.0); Alkaline Phosphatase 93 U/L (39-117); Anion Gap 9 (12-20); Aspartate Amino Transferase 20 U/L (5-37); Bilirubin Total 0.6 mg/dL (0.0-1.0); Blood Urea Nitrogen 20 mg/dL (9-16); Calcium 9.2 mg/dL (8.4-10.2); Carbon Dioxide 31 mmol/L (22-29); Chloride 106 mmol/L (96-108); Cholesterol 95 mg/dL (<200); Estimated Glomerular Filt Rate > 60; Glucose Fasting 88 mg/dL (60-99); HDL Cholesterol 50 mg/dL (>40); LDL Cholesterol Calculated 30 mg/dL (<100); Potassium 4.2 mmol/L (3.3-5.1); Sodium 142 mmol/L (135-145); Total Protein 6.3 g/dL (6.5-8.0); Triglycerides 77 mg/dL (<150)
[2024-08-15 08:11] LABS: Alanine Aminotransferase 47 U/L (0-40)
[2024-08-15 08:19] LABS: TSH reflex Free T4 1.25 uIU/mL (0.32-4.0); Vitamin D 25-OH Total 43.5 ng/mL (>30)
== END 2024-08-15 06:46 | disposition home or self-care (01) ==
LOC: HO.LAB 06:45
PROVIDERS: PCP Internal Medicine; Visit Provider Internal Medicine
DX: N20.0 Calculus of kidney (principal); R30.0 Dysuria; E55.9 Vitamin D deficiency, unspecified; R31.29 Other microscopic hematuria; D64.9 Anemia, unspecified; E78.00 Pure hypercholesterolemia, unspecified
CPT/HCPCS: 36415; 80053; 80061; 81003; 82306; 84443; 85025

== ENCOUNTER 2024-08-17 13:32 | Outpatient (AMB) | payer MEDICARE, MEDICAID, SELFPAY ==
--- NOTE | 2024-08-17 13:34 | MHC.PC.OV ---
Vital Signs 08/17/24 13:37 Height 6 ft Weight 224 lb 4 oz BMI 30.4 BP 130/64 Blood Pressure Location Lt brachial Position Sitting Pulse 90 Pulse Source Pulse Oximeter Temp 97.3 F Temp Source Skin Pulse Oximetry (%) 94 Oxygen Delivery Method Room Air Intake Visit Reasons: [facility] 08/08 flu Intake Note: Patient is here for hospital discharge follow up. Patient was discharged from [facility] on 08/08/24. 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 Accompanied by: Self / Same As Patient Allergies No Known Allergies Allergy (Verified 08/20/24 13:24) Medication List - Last Reconciled 08/17/24 by MARIA DOLORES Stern albuterol sulfate 90 mcg/actuation (Ventolin HFA) 2 puffs inhalation Q6H PRN albuterol sulfate 2.5 mg (3 mL) continuous nebulization QID PRN allopurinol 100 mg PO DAILY 90 days amlodipine 5 mg PO DAILY aspirin 81 mg PO DAILY atorvastatin 80 mg PO DAILY bisacodyl (Gentle Laxative (bisacodyl)) 10 mg (2 x 5 mg) PO BEDTIME cholecalciferol (vitamin D3) (Vitamin D3) 25 mcg PO DAILY cyanocobalamin (vitamin B-12) 1,000 mcg PO DAILY docusate sodium 100 mg PO BEDTIME fluticasone propionate 50 mcg/actuation 2 sprays intranasal DAILY PRN 30 days wxrdmwuunfb-yeomlneum-zuixdfyy 200-62.5-25 mcg (Trelegy Ellipta) 1 ea inhalation DAILY isosorbide mononitrate ER 30 mg PO DAILY losartan 100 mg PO DAILY nitroglycerin 0.4 mg sublingual Q5M potassium citrate ER 20 mEq (2 x 10 mEq (1,080 mg)) PO BID 90 days roflumilast (Daliresp) 500 mcg PO DAILY tamsulosin 0.4 mg PO BEDTIME 14 days Tobacco use date assessed: 08/17/24 Fall risk assessment: No Falls in past year Last assessed Fall Risk: 08/17/24 Dental Screening Dental Screen Date: 08/17/24 Did you have a dental visit in the last 12 months?: Yes Did you have a dental problem in the last 6 months where you did not have access to dental care?: No Was dental information given to patient?: Patient has dentist HPI [facility] 08/08 flu HPI Details The patient is a 64-year-old male with significant past medical history of CAD, COPD on home O2 2 L as needed, hypertension, smoker, GERD. Patient of Dr. Disla, last seen on 05/29/2024 the office Patient is presenting post hospital visit, discharged on 08/08/2024 The patient went to [facility] ER on 08/07/2024 complaining of increased difficulty breathing and productive cough. The patient was noted to be hypoxic in the emergency room, respiratory viral panel done come back positive for flu A. Chest x-ray was negative for any acute process. The patient was admitted with acute and chronic hypoxic respiratory failure secondary to influenza A. The patient was started on Tamiflu, Solu-Medrol and scheduled DuoNebs and albuterol as needed. Over the hospital course the patient improved and was back to his 2 L n/c. The patient was switched to p.o. prednisone short course to complete and continue Tamiflu. Today in office: The patient reports that he is feeling much better but it is not completely back to his baseline. Reports that when he woke up this morning he felt congested and when he used his inhaler all the mucus came up. Patient reports that the mucus is sometimes white or light yellow. Patient reports chronic shortness of breath with exertion. Reports that he uses oxygen 2-3 L as needed. Patient denies muscle aches, sore throat, ear pain or sinus pressure. Patient denies chest pain, heart palpitation, or dizziness. Patient reports that he was told he has a blockage in his heart but is not life threatening. Patient reports that he completed his 4 day course of prednisone but does not feel like it was not enough. The patient reports that he has not smoked in a month. [facility] Medical History Allergic rhinitis Overweight (BMI 25.0-29.9) Constipation Atherosclerotic cardiovascular disease Swelling of left lower extremity Vitamin B12 deficiency GERD without esophagitis Anterior chest wall pain Mixed hyperlipidemia Primary insomnia Urinary frequency Neuropathy Vitamin D deficiency Osteoarthritis Lumbar degenerative disc disease Impaired fasting glucose Benign essential hypertension COPD (chronic obstructive pulmonary disease) Headache Epidermoid cyst Surgical History History of total right knee replacement History of cardiac cath History of colonoscopy Family History Father Colon cancer Mother Medical history unknown Social History Housing: Apartment Alcohol intake: former Patient Tobacco Use Status: Former Tobacco user Tobacco use type: Cigarette Cigarettes Per Day: 15 Years Smoked: 30 +/- e-Cigarette/Vaping Use: Never Used Second Hand Smoke Exposure: Yes service: No Current occupational status: disabled Cognitive needs: No Hearing needs: Yes Vision needs: Yes (reading glasses) Questionnaire PHQ-9 Over the last 2 weeks, how often have you been bothered by any of the following problems? 1. Little interest or pleasure in doing things: not at all 2. Feeling down, depressed, or hopeless: not at all 3. Trouble falling or staying asleep, or sleeping too much: not at all 4. Feeling tired or having little energy: not at all 5. Poor appetite or overeating: not at all 6. Feeling bad about yourself - or that you are a failure or have let yourself or your family down: not at all 7. Trouble concentrating on things, such as reading the newspaper or watching television: not at all 8. Moving or speaking so slowly that other people could have noticed. Or the opposite - being so fidgety or restless that you have been moving around a lot more than usual: not at all 9. Thoughts that you would be better off or of hurting yourself in some way: not at all Total score: 0 Depression Screening Interpretation: Negative Depression Screening Done: Yes 60234 - PHQ-9 Billing: Yes Source: Developed by Drs. Ronald Vieira, Yomaira Craig, Sesar Stahl and colleagues, with an educational estelle from [employer]. Thrive Questionnaire Date Thrive assessed: 08/17/24 I am a: Patient What is your living situation today?: I have a steady place to live Within the past 12 months, did the food you bought not last and you didn't have the money to get more?: Never true Within the past 12 months, did you worry whether your food would run out before you got money to buy more?: Never true Do you have trouble paying for medicines?: No Do you have trouble getting transportation to medical appointments?: No Do you have trouble paying your heating and electricity bill?: No Do you have trouble taking care of your child, family member or friend?: No Do you have trouble with day-to-day activities such as bathing, preparing meals, shopping, managing finances, etc.?: No Are you currently unemployed and looking for a job?: I choose not to answer this question Are you interested in more education?: No Please select the resources that you would like help with: None Currently or been in a relationship where the following occur: No concerns reported THRIVE Score: 0 AUDIT C Alcohol Use Questionnaire (AUDIT-C) 1. How often do you have a drink containing alcohol?: Never 3. How often do you have six or more drinks on one occasion?: Never Total Score: 0 Score Reviewed/Action Taken: Yes SUSIE-7 AMB Questionnaire SUSIE-7 Date SUSIE - 7 assessed: 08/17/24 Feeling nervous, anxious, or on edge: 0 = Not at all Not being able to stop or control worryin = Not at all Worrying too much about different things: 0 = Not at all Trouble relaxin = Not at all Being so restless that it is hard to sit still: 0 = Not at all Becoming easily annoyed or irritable: 0 = Not at all Feeling afraid as if something awful might happen: 0 = Not at all Total SUSIE-7 score (0-4 normal; 5-9 mild; 10-14 moderate; 15-21 severe): 0 Source: Developed by Drs. Ronald Vieira, Yomaira Craig, Sesar Stahl and colleagues, with an educational estelle from [employer]. SUSIE-7 Assessment Billing SUSIE-7 Assessment Tool: SUSIE-7 Assessment 80655 Review of Systems Const Details: Denies chills, Denies fatigue, Denies fever(s), Denies headache(s) and Denies weakness HEENT Denies change in vision, Denies dizziness, Denies headache(s), Denies hearing loss, Denies nasal congestion, Denies sinus pain, Denies sinus pressure and Denies sore throat Card Denies chest pain, Denies lightheadedness, + dyspnea with exertion and Denies other (palpitations) Resp + productive intermittent cough, +dyspnea with exertion and Denies wheezing GI Denies abdominal pain, Denies melena, Denies hematochezia, Denies change in bowel habits, Denies dyspepsia and Denies nausea Denies hematuria and Denies dysuria Musc Denies abnormal gait, reports chronic lower back pain Skin/Breast Denies rash, Denies unusual bruising and Denies wounds Neuro Denies abnormal gait, Denies dizziness, Denies memory loss, Denies numbness, Denies tingling Psych Denies anxiety, Denies depression and Denies memory loss Endo Denies cold intolerance, Denies fatigue, Denies heat intolerance, Denies polydipsia and Denies polyuria Glynn/Lymph Denies easy bleeding and Denies easy bruising Aller/Immun Denies wheezing Physical exam (Primary Care) Vital Signs: Last Vital Signs Temp 97.3 F 08/17/24 13:37 Pulse 90 08/17/24 13:37 BP 130/64 08/17/24 13:37 Pulse Ox 94 08/17/24 13:37 Oxygen Delivery Method Room Air 08/17/24 13:37 BMI result Body Mass Index 30.4 Tobacco/Smoking Status: Tobacco use Status Tobacco use date assessed 08/17/24 08/17/24 13:41 Patient Tobacco Use Status Former Tobacco user 08/17/24 13:41 Tobacco use type Cigarette 08/17/24 13:41 e-Cigarette/Vaping Use Never Used 08/17/24 13:41 PHQ-9: PHQ-9 Score PHQ-9: Total score 0 08/20/24 13:29 Depression Screening Interpretation: Negative Thrive Assessment: Date of Thrive Assessment Date Thrive assessed 08/17/24 08/17/24 13:41 Currently or been in a relationship where the following occur: No concerns reported Const Other: General: no acute distress, well developed, alert and awake Nutritional Appearance: well nourished Orientation/consciousness: patient oriented x3 HENMT Head: Yes normocephalic and Yes atraumatic Ears: hearing grossly normal bilaterally and TM's with effusion, no pain or erythema General nose exam: Normal external nose present, bilateral nares with erythema and boggy turbinates, no sinsus pressure Mouth: Normal oral and palatal mucosa present and moist mucous membranes Eyes Pupils: Equal, round and reactive pupils present and Pupil accommodation reflex normal EOM: EOMs intact bilaterally Neck Neck: Yes normal visual inspection, Yes no lymphadenopathy and Yes trachea midline Thyroid: Thyroid normal Lymphatic: no lymphadenopathy noted Resp Effort & Inspection: normal respiratory effort Auscultation: clear to auscultation bilaterally Cardio Rate: regular rate Rhythm: regular rhythm Heart sounds: S1 normal heart sound present, S2 normal heart sound present, no gallops, no murmurs and no rubs GI Palpation (GI): No Abdominal aortic bruit present, Soft to palpation, nontender, No hepatosplenomegaly present and No Rebound tenderness present Auscultation: normal bowel sounds General: Yes no CVA tenderness Back/Spine/Pelvis Back: no CVA tenderness Cervical Spine: cervical ROM normal and No Cervical spine tenderness Thoracic/Lumbar Spine: No lumbar spinal tenderness Skin General: warm and dry. Normal skin color. Normal skin turgor Lesions: no lesions Nails: normal Neuro General: patient oriented x3, gait normal Cranial nerves: Yes Equal, round and reactive pupils present Cognition (Neuro): normal cognition Gait exam (Neuro): Normal gait present Extrem General: Yes normal to inspection, No edema and No calf tenderness Psych Appearance: grossly normal Affect: normal affect Attitude: cooperative Thought process: Normal thought process present Coding Level of Care Code Est Pt Level 4 (30212) Diagnoses Influenza A J10.1 Chronic obstructive pulmonary disease, unspecified COPD type J44.9 COPD type: unspecified COPD Benign essential hypertension I10 Fluid level behind tympanic membrane of both ears H65.93 Laterality: bilateral Allergic rhinitis, unspecified seasonality, unspecified trigger J30.9 Allergic rhinitis seasonality: unspecified Allergic rhinitis trigger: unspecified Atherosclerotic cardiovascular disease I25.10 Smoking F17.200 Additional Codes SUSIE-7 Assessment Billing - SUSIE-7 Assessment Tool: SUSIE-7 Assessment 80508 ([id number]) PHQ-9 - 48374 - PHQ-9 Billing: Yes ([id number]) Time Spent (min) 37 Assessment & Plan Assessment & Plan (1) Influenza A: Code(s): J10.1 - Influenza due to other identified influenza virus with other respiratory manifestations Category: Medical Plan: post hospital stay for acute and chronic respiratory hypoxic failure due to Influenza A with COPD exacerbation The patient was treated with Tamiflu and IV Solu-Medrol and scheduled DuoNebs and albuterol as needed The patient was discharged on a short course to prednisone. The patient reports that he still does not feel back to his baseline. He is requesting another short course of prednisone. Prednisone 20 mg x4 days ordered. Discussed with patient to continue using his inhalers and to f/u with pulmonology as scheduled (2) COPD (chronic obstructive pulmonary disease): Code(s): J44.9 - Chronic obstructive pulmonary disease, unspecified Category: Medical Qualifiers: COPD type: unspecified COPD Qualified Code(s): J44.9 - Chronic obstructive pulmonary disease, unspecified Plan: Continue oxygen 2L as needed, albuterol sulfate nebulization qid prn, ventolin HFA 2 puffs q6 PRN, gybsenrdgeu-abarwitwd-giictubg 200-62.5-25 mcg I ea inhalation daily. follow up with pulmonology as scheduled (3) Benign essential hypertension: Code(s): I10 - Essential (primary) hypertension Category: Medical Plan: reinforced low sodium diet continue losartan 100mg dailyand amlodipine 5 mg daily follow up with cardiology as scheduled (4) Middle ear effusion: Code(s): H65.90 - Unspecified nonsuppurative otitis media, unspecified ear Category: Medical Qualifiers: Laterality: bilateral Qualified Code(s): H65.93 - Unspecified nonsuppurative otitis media, bilateral Plan: Denies ear pain, will continue to monitor (5) Allergic rhinitis: Code(s): J30.9 - Allergic rhinitis, unspecified Category: Medical Qualifiers: Allergic rhinitis seasonality: unspecified Allergic rhinitis trigger: unspecified Qualified Code(s): J30.9 - Allergic rhinitis, unspecified Plan: nasal congestion. Encouraged to fluticasone propionate 50 mcg/actuation 2 spray daily (6) Atherosclerotic cardiovascular disease: Code(s): I25.10 - Atherosclerotic heart disease of [place] coronary artery without angina pectoris Category: Medical Plan: continue to aspirin 81 mg daily and isosorbide mononitrate ER 30 mg daily follow up with cardiology as scheduled (7) Smoking: Code(s): F17.200 - Nicotine dependence, unspecified, uncomplicated Category: Social Hx Plan: encouraged smoking cessation reports that he has not smoked for a month now Plan Follow up with PCP in 4 months Medications: New prednisone 20 mg PO DAILY 4 days 4 tabs 0RF
[2024-08-17 13:37] VITALS: BP 130/64; PULSE 90; TEMP 36.3; O2SAT 94; BMI 30.4
--- OUTSIDE RECORDS SUMMARY | 2024-08-17 13:40 | XMS_ITS | Encounter Summary ---
Author Organization [facility] Address [address] [place] [address] Care Team Providers Care Manufacturing Applications Engineer Name Role Phone Sanju Disla MD Primary Care Provider + [phone] Reason for Visit * Reason Comments Shortness of Breath * Auth/Cert (Routine) Specialty Diagnoses / Procedures Referred By Harlan t Referred To Contact Diagnoses Influenza A COPD exacerbation (CMS/HCC) Acute on chronic hypoxic respiratory failure (CMS/HCC) Procedures [facility] IP/OBS CARE INITIAL MODERATE LEVEL PER DAY Eric Norris MD [address] [place] [id number] Phone: tel: fax: [facility] [address] [place] [address] Phone: tel: Referral ID Status Reason Start Date Expiration Date Visits Re quested Visits Authorized [id number] 1 1 Encounter Details Date Type Department Care Team (Latest Contact Info) Description 08/04/2024 7:50 PM EST - 08/07/2024 4:08 PM EST Hospital Encounter [facility] [address] [place] [address] Eric Norris MD [address] [place] [address] Bill Cervantes MD [address] [place] [address] Edith Mendoza MD [address] [place] [phone] COPD exacerbation (CMS/FORMERLY [facility]) (Primary Dx); Influenza A; Chronic obstructive pulmonary disease with acute exacerbation ([facility]) Discharge Disposition: Home or Self Care Social History Tobacco Use Types Packs/Day Years Used Date Smoking Tobacco: Former Cigarettes 0.5 54.1 S tarted: 07/05/1970 Smokeless Tobacco: Never Quit: 02/02/2018 Comments:0.5 pack daily Alcohol Use Standard Drinks/Week Comments Not Currently 0 (1 standard drink = 0.6 oz pur e alcohol) Interpersonal Safety Answer Date Record ed Physical Abuse 08/05/2024 Verbal Abuse 08/05/2024 Sex and Gender Information Value Date Recorded Sex Assigned at Male 05/16/2024 12:44 AM EST Legal Sex Male 3:52 PM EST Gender Identity Male 05/16/2024 12:44 AM EST Sexual Orientation Straight 05/16/2024 12 :44 AM EST documented as of this encounter Last Filed Vital Signs Vital Sign Reading Time Taken Comments Blood Pressure 123/61 08/07/2024 2:47 PM EST Pulse 80 08/07/2024 2:47 PM EST Temperature 36.7 ??C (98.1 ??F) 08/07/2024 2:47 PM ES T Respiratory Rate 20 08/07/2024 2:47 PM EST Oxygen Saturation 93% 08/07/2024 2:47 PM EST Inhaled Oxygen Concentration - - Weight 111 kg (244 lb 1.6 oz) 08/05/2024 10:00 A M EST Height 182.9 cm (6') 08/04/2024 9:57 PM EST Body Mass Index 33.11 08/04/2024 9:57 PM EST documented in this encounter Functional Status * Are you deaf or do you have serious difficulty hearing? Answer Date of Assessment Author No 05/14/2024 6:03 PM Colette Ku RN * Are you blind or do you have serious difficulty seeing, even when wearing glasses? Answer Date of Assessment Author No 05/14/2024 6:03 PM Colette Ku RN * Do you have serious difficulty walking or climbing stairs? Answer Date of Assessment Author No 05/14/2024 6:03 PM Colette Ku RN * Do you have serious difficulty dressing or bathing? Answer Date of Assessment Author No 05/14/2024 6:03 PM Colette Ku RN * Because of a physical, mental, or emotional condition, do you have serious difficulty doing errandsalone such as visiting the doctor? Answer Date of Assessment Author No 05/14/2024 6:03 PM Colette Ku RN documented as of this encounter Mental Status * Because of a physical, mental, or emotional condition, do you have serious difficulty concentrating, remembering, or making decisions? (5 years old or older) Answer Entry Date Author No 05/14/2024 6:03 PM Colette Ku RN documented in this encounter Discharge Summaries * Edith Mendoza MD - 08/07/2024 12:12 PM EST Images from the original note were not included. ATHENS DISCHARGE SUMMARY Patient Information Toby Jackson : 1960 [64 y.o.] Admitting Provider Eric Norris MD Discharge Provider Edith Mendoza MD, Edith Mendoza MD Primary Care Physician Sanju Disla MD Admission Date 08/04/2024 Discharge Date 08/07/2024 Summary of Hospital Problems Presenting Chief Complaint: Shortness of breath Primary Discharge Diagnosis: Acute on chronic hypoxic respiratory failure (CMS/HCC) Influenza A positive COPD exacerbation Discharge Destination: Home Code Status at Discharge: No CPR/Do Not Intubate Hospital Course Summary This is a 64-year-old male with history of CAD, COPD on home O2 2 L as needed, hypertension, presenting to the emergency room with complaints of increasing difficulty breathing, and some productive cough. Patient was noted to be hypoxic in the emergency room, respiratory viral panel done came back positive for influenza A. Chest x-ray was negative for any acute process. Patient admitted for acuteon chronic hypoxic respiratory failure secondary to influenza A infection. Acute on chronic hypoxic respiratory failure Secondary to influenza A infection with COPD exacerbation Was started on Tamiflu, also IV Solu-Medrol and scheduled DuoNebs and albuterol as needed. Over the hospital course improved, is currently on 2 L nasal cannula, feels much better. Switch to p.o. prednisone short course to complete and continue Tamiflu. Follows with Dr. Gibbs as outpatient for his underlying COPD. Continue rest of the medications as before. Back to his baseline of 2 L nasal cannula. With regards to rest of the chronic medical problems, continue medications as before no changes made. Follow-up with PCP as outpatient in a week. Follow-Up Instructions and Recommendations Follow-up with your primary care physician in a week upon discharge Follow-up with pulmonary as outpatient as scheduled next. Discharge Medications Your medication list START taking these medications Instructions Last Dose Given Next Dose Due oseltamivir 75 mg capsule Commonly known as: TAMIFLU Take 1 capsule (75 mg total) by mouth 2 (two) times a day for 4 doses. predniSONE 10 mg tablet Commonly known as: DELTASONE Take 1 tablet (10 mg total) by mouth 4 (four) times a day for 5 days. CONTINUE taking these medications Instructions Last Dose Given Next Dose Due albuterol 2.5 mg /3 mL (0.083 %) nebulizer solution Inhale 3 mL (2.5 mg total) by mouth. albuterol HFA 90 mcg/actuation inhaler Commonly known as: PROAIR HFA ; PROVENTIL HFA ; VENTOLIN HFA USE 2 INHALATIONS ORALLY EVERY 4 HOURS NEEDED FORSHORTNESS OF BREATH OR WHEEZING allopurinoL 100 mg tablet Commonly known as: ZYLOPRIM Take 1 tablet (100 mg total) by mouth 1 (one) time each day. aspirin 81 mg EC tablet Take 1 tablet (81 mg total) by mouth 1 (one) time each day. atorvastatin 80 mg tablet Commonly known as: LIPITOR Take 1 tablet (80 mg total) by mouth 1 (one) time each day. bisacodyL 5 mg EC tablet Commonly known as: DULCOLAX Take 2 tablets (10 mg total) by mouth at bedtime. at bedtime cholecalciferol 50 mcg (2,000 unit) tablet Commonly known as: VITAMIN D-3 Take 1 tablet (2,000 Units total) by mouth 1 (one) time each day. Take by mouth. - Oral cyanocobalamin 1,000 mcg tablet Commonly known as: VITAMIN B-12 Take 1 tablet (1,000 mcg total) by mouth 1 (one) time each day. fluticasone propionate 50 mcg/actuation nasal spray Commonly known as: FLONASE Administer 1 spray into each nostril 1 (one) time each day. isosorbide mononitrate 30 mg 24 hr tablet Commonly known as: IMDUR Take 1 tablet (30 mg total) by mouth 1 (one) time each day. losartan 100 mg tablet Commonly known as: COZAAR Take 1 tablet (100 mg total) by mouth 1 (one) time each day. MISCELLANEOUS MEDICAL SUPPLY MISC Spacer/Aero-Holding Chambers (AEROCHAMBER MV) Misc 1 Device by Does not apply route as needed (wheezing). nitroglycerin 0.4 mg SL tablet Commonly known as: NITROSTAT TAKE 1 TABLET SUBLINGUALLY EVERY 5 MINUTES MAX 3 DOSES Oxygen Therapy gas Commonly known as: O2 2 L/min continuously if needed. pantoprazole 40 mg EC tablet Commonly known as: PROTONIX TAKE 1 TABLET ORALLY DAILY TAKE EVERY MORNING 30 MINUTES BEFORE BREAKFAST potassium citrate 10 mEq (1,080 mg) CR tablet Commonly known as: UROCIT-K Take 2 tablets (20 mEq total) by mouth 2 (two) times a day with meals. roflumilast 500 mcg tablet Commonly known as: DALIRESP Take 1 tablet (500 mcg total) by mouth 1 (one) time each day. Trelegy Ellipta 200-62.5-25 mcg inhaler Generic drug: anxlqwzmjtm-ynxqzulbyrcc-efvjvsoppx Where to Get Your Medications These medications were sent to [facility]/pharmacy #[id number] - [address] [place] [address], [facility] [id number] oseltamivir 75 mg capsule predniSONE 10 mg tablet Physical Exam at time of Discharge Physical Exam Pleasant male not in any acute distress on 2 L nasal cannula HEENT PERRLA Neck supple Chest no accessory muscle use, clear to auscultation at this time. Heart S1-S2 regular no murmurs appreciated Abdomen soft nontender bowel sounds present Extremities no edema Vitals Visit Vitals BP 126/75 (BP Location: Left arm, Patient Position: Lying) Pulse 78 Temp 36.5 ??C (97.7 ??F) (Temporal) Resp 20 Temp (24hrs), Av.6 ??C (97.8 ??F), Min:36.3 ??C (97.3 ??F), Max:36.8 ??C (98.2 ??F) Body mass index is 33.11 kg/m??. No results found for: PTWT , PTHT Results from last 7 days Lab Units 08/07/24 0615 08/06/24 0543 08/05/24 0548 SODIUM mmol/L 137 135 134 POTASSIUM mmol/L 4.7 5.0 4.4 CHLORIDE mmol/L 103 100 102 CO2 mmol/L 31 31 26 BUN mg/dL 23 25 22 CREATININE mg/dL 0.99 1.08 1.22 GLUCOSE mg/dL 101* 117* 128* CALCIUM mg/dL 9.2 9.2 8.6 Results from last 7 days Lab Units 08/07/24 0615 08/06/24 0543 08/05/24 0548 WBC AUTO K/mcL 7.5 7.8 6.9 HEMOGLOBIN g/dL 13.4* 13.8 13.1* HEMATOCRIT % 40.6* 42.1 39.0* PLATELETS K/mcL 232 233 209 Recent Results (from the past 168 hour(s)) Respiratory virus panel molecular study Collection Time: 08/04/24 8:12 PM Specimen: Nares; Swab Result Value Ref Range Adenovirus Detection by PCR Not Detected Not Detected Influenza B PCR Not Detected Not Detected Coronavirus 229E Not Detected Not Detected Coronavirus HKU1 Not Detected Not Detected Coronavirus OC43 Not Detected Not Detected Coronavirus NL63 Not Detected Not Detected Parainfluenza Virus 1 Not Detected Not Detected Parainfluenza Virus 2 Not Detected Not Detected Parainfluenza Virus 3 Not Detected Not Detected Parainfluenza Virus 4 Not Detected Not Detected RSV PCR Not Detected Not Detected Human Metapneumovirus A and B Not Detected Not Detected Rhinovirus/Enterovirus Not Detected Not Detected Bordetella pertussis Not Detected Not Detected Bordetella parapertussis Not Detected Not Detected Influenza A H3 Detected (A) Not Detected Mycoplasma pneumo by PCR Not Detected Not Detected Chlamydia pneumoniae Not Detected Not Detected SARS COV-2 Not Detected Not Detected XR Chest 1 View Final Result Similar appearance of the chest compared with 05/14/2024. -------- FINAL REPORT -------- Dictated By: Raphael Denton Dictated Date: 08/05/2024 08:21 ET Assigned Physician: Raphael Denton Reviewed and Electronically Signed By: Raphael Denton Signed Date: 08/05/2024 08:23 ET Workstation ID: [id number] Transcribed By: Self Edit Transcribed Date: 08/05/2024 08:21 ET Total time spent 45 minutes doing chart review, seeing patient performing physical exam, formulating plan, coordinating with RN, ICC for discharge, and documentation This dictation was performed using voice recognition software. Word substitution may have occurred and may have gone unnoticed and uncorrected * Edith Mendoza MD - 08/07/2024 12:10 PM EST Low salt diet * Edith Mendoza MD - 08/07/2024 12:10 PM EST As tolerated documented in this encounter Discharge Instructions * Discharge Instructions* Edith Mendoza MD - 08/07/2024 12:11 PM EST Take prednisone as directed, with food. Complete course of Tamiflu. Follow-up with your primary care physician in a week upon discharge documented in this encounter Medications at Time of Discharge albuterol 2.5 mg /3 mL (0.083 %) nebulizer solution Inhale 3 mL (2.5 mg total) by mouth. 07/15/2011 albuterol HFA (PROAIR HFA ; PROVENTIL HFA ; VENTOLIN HFA) 90 mcg/actuation inhaler USE 2 INHALATIONS ORALLY EVERY 4 HOURS NEEDED FORSHORTNESS OF BREATH OR WHEEZING 18 g 6 06/06/2024 allopurinoL (ZYLOPRIM) 100 mg tablet Take 1 tablet (100 mg total) by mouth 1 (one) time each day. 03/03/2024 aspirin 81 mg EC tablet Take 1 tablet (81 mg total) by mouth 1 (one) time each day. atorvastatin (LIPITOR) 80 mg tablet Take 1 tablet (80 mg total) by mouth 1 (one) time each day. bisacodyL (DULCOLAX) 5 mg EC tablet Take 2 tablets (10 mg total) by mouth at bedtime. at bedtime 04/19/2024 cholecalciferol (VITAMIN D-3) 50 mcg (2,000 unit) tablet Take 1 tablet (2,000 Units total) by mouth 1 (one) time each day. Take by mouth. - Oral cyanocobalamin (VITAMIN B-12) 1,000 mcg tablet Take 1 tablet (1,000 mcg total) by mouth 1 (one) time each day. fluticasone propionate (FLONASE) 50 mcg/actuation nasal spray Administer 1 spray into each nostril 1 (one) time each day. 04/10/2024 isosorbide mononitrate (IMDUR) 30 mg 24 hr tablet Take 1 tablet (30 mg total) by mouth 1 (one) time each day. losartan (COZAAR) 100 mg tablet Take 1 tablet (100 mg total) by mouth 1 (one) time each day. medical supply, miscellaneous (MISCELLANEOUS MEDICAL SUPPLY MISC) Spacer/Aero-Holdi ng Chambers (AEROCHAMBER MV) Misc 1 Device by Does not apply route as needed (wheezing). 06/23/2018 nitroglycerin (NITROSTAT) 0.4 mg SL tablet TAKE 1 TABLET SUBLINGUALLY EVERY 5 MINUTES MAX 3 DOSES Oxygen Therapy (O2) gas 2 L/min continuously if needed. pantoprazole (PROTONIX) 40 mg EC tablet TAKE 1 TABLET ORALLY DAILY TAKE EVERY MORNING 30 MINUTES BEFORE BREAKFAST potassium citrate (UROCIT-K) 10 mEq (1,080 mg) CR tablet Take 2 tablets (20 mEq total) by mouth 2 (two) times a day with meals. 03/03/2024 roflumilast (DALIRESP) 500 mcg tablet Take 1 tablet (500 mcg total) by mouth 1 (one) time each day. 04/27/2024 Trelegy Ellipta 200-62.5-25 mcg inhaler 03/17/2024 oseltamivir (TAMIFLU) 75 mg capsule Take 1 capsule (75 mg total) by mouth 2 (two) times a day for 4 doses. 4 each 08/07/2024 08/09/19 25 predniSONE (DELTASONE) 10 mg tablet Take 1 tablet (10 mg total) by mouth 4 (four) times a day for 5 days. 20 each 08/07/2024 08/12/19 documented as of this encounter Ordered Prescriptions Prescription Sig Dispense Quantity Refills Last Filled Start Date End Date predniSONE (DELTASONE) 10 mg tablet Take 1 tablet (10 mg total) by mouth 4 (four) times a day for 5 days. 20 each 08/07/2024 5 oseltamivir (TAMIFLU) 75 mg capsule Take 1 capsule (75 mg total) by mouth 2 (two) times a day for 4 doses. 4 each 08/07/2024 5 documented in this encounter Discharge Disposition Disposition Code Departure Means Destination Comment s Home or Self Care Car documented in this encounter Progress Notes * Yessica Kohler RN - 08/07/2024 3:43 PM EST Went through d/c paperwork with patient. Educated on all new prescriptions, d/c instructions, &f/u appointments. Daughter bringing portable oxygen tank from home. All questions answered. * Grace Cerna RN - 08/07/2024 3:40 PM EST 08/07/24 0443 Transportation Transportation at discharge Family Final Discharge Disposition Home or Self Care Pt medically cleared for discharge. Dispo is home self-care. Pt script for O2 has changed. [facility] notifed Milena tatum (OV) who is aware that a change has been made and that pt will be discharged today. Pt daughter to provide transportation. * Crys Rodriguez - 08/07/2024 2:04 PM EST 08/07/24 1400 Qualify for Home O2 On at rest Room air SpO2 at rest 92 % On with exertion Room air SpO2 w/ exertion 86 % (02 then placed on at 2lpm and cont to ambulate 89-90-91%) Amount of exertion time walked 5 Minutes Patient mobile at home? Yes Home O2 set up by (company): pt currently has [employer] * Kika Morales RN - 08/07/2024 12:07 AM EST Goals: PT WILL EXPERIENCE MAXIMUM SAFETY. Identify possible barriers to meeting goals/advancing plan of care: NONE Stability of the patient: Moderately Stable - Low risk of patient condition declining or worsening End of Shift Summary: PT W/ COPD ADMITTED FOR INFLUENZA A. UP AD APRIL. NO LIGHTHEADEDNESS , WEAKNESS, . RESTING COMFORTABLY. DENIES PAIN * Winifred Burks RN - 08/06/2024 4:31 PM EST 08/06/24 1631 Initial Transition Plan Initial Transition Plan Home Discharge Planning Living Arrangements Spouse/significant other;Children (lives with girlfriend and DTR) Assistive Devices None Support Systems Spouse/significant other;Children Medication Coverage Has Med Coverage Under Insurance Plan Yes Medication Affordability No concerns related to payment for meds Informed Choice Informed Choice Given? Yes I met with patient with regards to d/c planning. Patient resides with significant other and DTR. Home is 2 levels. Patient states that he is very independent with care. No assistive devices, drives. 02 delivered by [employer]. Patient declines the need for VNA at this time. Barrier to d/c: COPD exacerbation +flu A, tamiflu, solumedrol, duoneb, albuterol Dispo: home independent, lives with girlfriend and DTR, active with [facility] for * Bill Cervantes MD - 08/06/2024 12:02 PM EST Images from the original note were not included. MEGAN PROGRESS NOTE Date: 08/06/2024 Author: Bill Cervantes MD Patient ID: Toby Jackson is a 64 y.o. male : 1960 MR#: [id number] SUBJECTIVE Subjective Patient seen and examined by bedside Vitals, labs and images reviewed Weaned off from O2 via HFNC to nasal cannula Patient is an active smoker with history of severe COPD. Not interested in quitting. Refused nicotine patch/gum Will downgrade from telemetry. Continue systemic IV steroids and scheduled breathing treatments Allergies Patient has no known allergies. Current Medications: allopurinoL, 100 mg, oral, Daily aspirin, 81 mg, oral, Daily atorvastatin, 80 mg, oral, Daily bisacodyL, 10 mg, oral, Nightly enoxaparin, 40 mg, subcutaneous, q24h RANDALL ipratropium-albuteroL, 3 mL, nebulization, 4x daily isosorbide mononitrate, 30 mg, oral, Daily losartan, 100 mg, oral, Daily methylPREDNISolone sod suc, 40 mg, intravenous, q12h RANDALL oseltamivir, 75 mg, oral, Once oseltamivir, 75 mg, oral, BID pantoprazole, 40 mg, oral, q AM AC roflumilast, 500 mcg, oral, Daily sodium chloride, 10 mL, intravenous, BID PRN medications: acetaminophen, albuterol, morphine, ondansetron (ZOFRAN-ODT) disintegrating tabletOR ondansetron, prochlorperazine OR prochlorperazine OR prochlorperazine, [COMPLETED] Insert peripheral IV AND Maintain IV access AND [COMPLETED] Saline lock IV AND sodium chloride AND sodium chloride OBJECTIVE Vitals: 08/06/24 0012 08/06/24 0418 08/06/24 0735 08/06/24 1131 BP: 107/61 108/60 123/57 115/65 BP Location: Right arm Right arm Right arm Right arm Patient Position: Lying Lying Sitting Sitting Pulse: 81 69 69 80 Resp: 19 18 20 16 Temp: 36.4 ??C (97.5 ??F) 36.6 ??C (97.8 ??F) 36.5 ??C (97.7 ??F) 36.6 ??C (97.8 ??F) TempSrc: Temporal Temporal Temporal Temporal SpO2: 97% 98% 98% 95% Weight: Height: Physical Exam General : Pt lying in bed in no acute distress, breathing via nasal cannula Head : NC/AT Eyes : EOMI Resp : Diminished breath sounds bilaterally CVS : RRR, no audible murmurs GI : Abd Soft, NT, ND, +BS Neuro : Alert and oriented x 3, follows commands LABS HEMATOLOGY Lab Results Component Value Date WBC 7.8 08/06/2024 HGB 13.8 08/06/2024 HCT 42.1 08/06/2024 MCV 95.0 08/06/2024 PLT 233 08/06/2024 CHEMISTRY Lab Results Component Value Date GLUCOSE 117 (H) 08/06/2024 NA 135 08/06/2024 K 5.0 08/06/2024 CO2 31 08/06/2024 CL 100 08/06/2024 BUN 25 08/06/2024 CREATININE 1.08 08/06/2024 EGFR 76 08/06/2024 CALCIUM 9.2 08/06/2024 MG 2.5 08/05/2024 PHOS 3.3 05/16/2024 ANIONGAP 4 08/06/2024 Imaging: XR Chest 1 View Narrative: PROCEDURE: AP chest radiograph. HISTORY: dyspnea. COMPARISON: 05/14/2024. FINDINGS: Patchy heterogeneous opacities at the bases, which may represent atelectasis. Biapical hyperlucencysuggesting emphysema. Pleural spaces and cardiomediastinal contours are normal. Impression: Similar appearance of the chest compared with 05/14/2024. -------- FINAL REPORT -------- Dictated By: Raphael Denton Dictated Date: 08/05/2024 08:21 ET Assigned Physician: Raphael Denton Reviewed and Electronically Signed By: Raphael Denton Signed Date: 08/05/2024 08:23 ET Workstation ID: [id number] Transcribed By: Self Edit Transcribed Date: 08/05/2024 08:21 ET ASSESSMENT & PLAN Acute on chronic hypoxic respiratory failure in the setting of acute COPD exacerbation secondary toinfluenza A infection Patient uses O2 via nasal cannula 2 L on an as-needed basis Patient is an active smoker smoking half pack a day for the last 55 years Refused nicotine gum/patch continue IV methylprednisone 40 Mg every 12 hourly Continue scheduled DuoNebs Albuterol as needed Oseltamavir twice daily On O2 via HFNC previously, transition to nasal cannula Will need home O2 evaluation prior to discharge Coronary artery disease Hypertension/hyperlipidemia Echo 05/2024 revealed an EF of 50 to 55%. -On aspirin, a atorvastatin, losartan, isosorbide mononitrate and sublingual nitroglycerin as needed. DAILY CARE CHECKLIST Length of Stay: 01d 01h 50m VTE Prophylaxis: Lovenox Resuscitation: No CPR/Do Not Intubate PCP: Sanju Disla MD Disposition/patient need hospital stay because : Likely in the next 24 to 48 hours, needs systemic IV steroids * Beverly Hair RN - 08/05/2024 6:17 PM EST Goals: Identify possible barriers to meeting goals/advancing plan of care: . Stability of the patient: Moderately Stable - Low risk of patient condition declining or worsening End of Shift Summary: . * Christina Carlson RN - 08/05/2024 6:28 AM EST ED RN HANDOFF (All Alberts Below Must Be Completed) Reason/Diagnosis for Admission: COPD exacerbation Type of Admission: [] Medsurg, [x] Telemetry Already in a Hospital Bed: [] Yes / [x] No Room Considerations/Precautions (ex: fever, diarrhea, or any infectious concerns): [x] Yes - Flu A (Droplet) / [] No Cotton Sampler: [x] Yes / [] No If YES, Cardiac Rhythm: [x] NSR, [] SB, [] ST, [] A-FIB, [] A-Flutter, [] Pacemaker, [] 1st Degree HB, [] 2nd Degree HB, [] 3rd Degree HB Reason for Cotton Sampler: CAD VS: Visit Vitals BP 116/62 Pulse 74 Temp 37.4 ??C (99.3 ??F) (Oral) Resp 19 Ht 1.829 m (72 ) Wt 101 kg (223 lb) SpO2 96% BMI 30.24 kg/m?? Smoking Status Former BSA 2.23 m?? Current Mental Status: A/O x [x]4, []3, []2, []1 Current Ambulation Status: IND IV Access: [x] Yes / [] No Field IV present: [] Yes / [x] No Hx of Violence: [] Yes / [] No / [x] Unknown Fall Risk:[] Yes / [x] No Yellow Bracelet Applied [] Yes / [x] No Yellow Socks Applied [] Yes / [x] No Patient Belongings inventoried and BL completed: [x] Yes / [] No Patient belongings stored in the security closet: [] Yes (If Yes please supply Security bag #): [x] No Patient Medications stored in Pharmacy: [] Yes (If Yes please supply Medication Security bag #): [x] No ED Summary of Care: PT presented to ED with SOB. Normally on 2L NC at home for COPD. PT was sating 89-90% on the 2L and called EMS. EMS put him on 4L NC which brought his sat up to 91%. PT was put onBIPAP and given solumedrol, 4 neb tx and 2g magnesium. Pt now on high flow sating 96%. Has LR running at 100mL/hr. Plan to monitor and to keep O2 saturation above 92%. Submitted by and Phone Extension: [phone] JOLANTA Vasquez * Christina Carlson RN - 08/04/2024 7:54 PM EST PT presented from home and was BIBA for SOB. Pt has PMH of COPD, asthma normally on 2L O2, and a heart block. Is a current smoker, 1/2 ppd. Has been having increased WOB. EMS found pt at 89-90% on the 2L NC. EMS bumped pt to 4L NC which brought him to 91%. PT alert and oriented. PT told EMS he doesn't like to have oxygen up high because it makes it harder for him to breathe. * HUNTER Iniguez - 08/04/2024 7:45 PM ESTAssociated Order(s): Critical Care Emergency Medicine Note Patient Name: Toby Jackson Initial Evaluation: 08/04/2024 : 1960 Patient's PCP: Sanju Disla MD Emergency Physician: HUNTER Iniguez History of Present Illness Chief Complaint: Chief Complaint Patient presents with Shortness of Breath HPI: 64-year-old male with a history of COPD and coronary artery disease complaining of shortness of breath. Patient states that he was diagnosed with coronary artery disease in [facility] of this year. He started at [facility] was transferred over to [facility]. Patient states that he had a heart catheterization they noted a blocked artery but no intervention was performed. Patient states that he began to experience cough shortness of breath this morning. He has been using his nebulizer and his inhaler at home without relief. He is on oxygen at home 2 L/min as needed. Denies fever chills chest pain abdominal pain nausea vomiting diarrhea. He does still smoke cigarettes. ROS: I have performed a ROS with the pertinent positives and negatives documented in the history ofpresent illness. Previous History Past Medical History: Diagnosis Date Arthritis DX:Arthritis Asthma DX:Asthma Cholelithiasis 08/10/2017 DX:Cholelithiasis Chronic obstructive pulmonary disease (COPD) ([facility]) 02/11/2017 DX:Chronic obstructive pulmonary disease (COPD) ([facility]) Diverticulosis 08/10/2017 DX:Diverticulosis Essential hypertension DX:Essential hypertension Hyperlipidemia 08/10/2017 DX:Hyperlipidemia Lymphadenopathy 11/18/2017 DX:Lymphadenopathy; COMMENT: 1.[address] Pneumonia DX:Pneumonia Supplemental oxygen dependent 08/10/2017 DX:Supplemental oxygen dependent Tobacco use 02/11/2017 DX:Tobacco use Past Surgical History: Procedure Laterality Date DENTAL SURGERY PROCEDURE: RI UNLISTED PROCEDURE DENTOALVEOLAR STRUCTURES KNEE SURGERY PROCEDURE: HISTORICAL KNEE SURGERY Social History Tobacco Use Smoking status: Former Current packs/day: 0.50 Average packs/day: 0.5 packs/day for 54.1 years (27.0 ttl pk-yrs) Types: Cigarettes Start date: 07/05/1970 Smokeless tobacco: Never Tobacco comments: 0.5 pack daily Substance Use Topics Alcohol use: Not Currently Drug use: No No family history on file. has No Known Allergies. No current facility-administered medications on file prior to encounter. Current Outpatient Medications on File Prior to Encounter Medication Sig Dispense Refill albuterol 2.5 mg /3 mL (0.083 %) nebulizer solution Inhale 3 mL (2.5 mg total) by mouth. albuterol HFA (PROAIR HFA ; PROVENTIL HFA ; VENTOLIN HFA) 90 mcg/actuation inhaler USE 2 INHALATIONS ORALLY EVERY 4 HOURS NEEDED FORSHORTNESS OF BREATH OR WHEEZING 18 g 6 allopurinoL (ZYLOPRIM) 100 mg tablet Take 1 tablet (100 mg total) by mouth 1 (one) time each day. aspirin 81 mg EC tablet Take 1 tablet (81 mg total) by mouth 1 (one) time each day. atorvastatin (LIPITOR) 80 mg tablet Take 1 tablet (80 mg total) by mouth 1 (one) time each day. bisacodyL (DULCOLAX) 5 mg EC tablet Take 2 tablets (10 mg total) by mouth at bedtime. at bedtime cholecalciferol (VITAMIN D-3) 50 mcg (2,000 unit) tablet Take 1 tablet (2,000 Units total) by mouth1 (one) time each day. Take by mouth. - Oral cyanocobalamin (VITAMIN B-12) 1,000 mcg tablet Take 1 tablet (1,000 mcg total) by mouth 1 (one) time each day. fluticasone propionate (FLONASE) 50 mcg/actuation nasal spray Administer 1 spray into each nostril 1 (one) time each day. isosorbide mononitrate (IMDUR) 30 mg 24 hr tablet Take 1 tablet (30 mg total) by mouth 1 (one) timeeach day. losartan (COZAAR) 100 mg tablet Take 1 tablet (100 mg total) by mouth 1 (one) time each day. medical supply, miscellaneous (MISCELLANEOUS MEDICAL SUPPLY MISC) Spacer/Aero- Holding Chambers (AEROCHAMBER MV) Misc 1 Device by Does not apply route as needed (wheezing). nitroglycerin (NITROSTAT) 0.4 mg SL tablet TAKE 1 TABLET SUBLINGUALLY EVERY 5 MINUTES MAX 3 DOSES Oxygen Therapy (O2) gas 2 L/min continuously if needed. pantoprazole (PROTONIX) 40 mg EC tablet TAKE 1 TABLET ORALLY DAILY TAKE EVERY MORNING 30 MINUTES BEFORE BREAKFAST potassium citrate (UROCIT-K) 10 mEq (1,080 mg) CR tablet Take 2 tablets (20 mEq total) by mouth 2 (two) times a day with meals. roflumilast (DALIRESP) 500 mcg tablet Take 1 tablet (500 mcg total) by mouth 1 (one) time each day. Trelegy Ellipta 200-62.5-25 mcg inhaler Physical Exam ED Triage Vitals [08/04/241951] Temp Heart Rate Resp BP 37.7 ??C (99.9 ??F) (!) 120 13 102/87 SpO2 Temp src Heart Rate Source Patient Position 90 % -- -- -- BP Location FiO2 (%) -- -- General: Well-appearing, well nourished, in moderate respiratory distress HEENT: PERRL, EOMI, external ears and nose appear unremarkable, airway is patent Neck: Supple, full range of motion Chest: Diminished all alberts with expiratory wheezes, 3-4 word dyspnea positive accessory muscle use. Oxygen saturation is 91/92% on O2 via nasal cannula at 4 L/min. Circulatory: RRR, extremities well perfused Abdomen: Non-distended, Non-Tender Extremities: Normal ROM, No edema Skin: Warm and dry Neuro: Alert and oriented, no focal deficits Results Labs Reviewed RESPIRATORY VIRUS PANEL MOLECULAR STUDY BASIC METABOLIC PANEL COMPLETE BLOOD COUNT Abnormal Labs Reviewed - No abnormal labs to display XR Chest 1 View (Results Pending) I have discussed the incidental/abnormal imaging and/or lab abnormalities with the patient and haveinstructed them the need for further evaluation and workup with their primary care doctor. I have provided the patient with a paper copy of the abnormality. The laboratory results, imaging results and other diagnostic exam results were reviewed in the EMR. EKG Interpretation Sinus tachycardia 115 bpm with bundle branch block. No change from previous. Critical Care Time None ? Medical Decision Making Medications magnesium sulfate 2 gram/50 mL (4 %) IVPB 2 g (has no administration in time range) albuterol 2.5 mg /3 mL (0.083 %) nebulizer solution 10 mg (has no administration in time range) ipratropium (ATROVENT) 0.02 % nebulizer solution 0.5 mg (has no administration in time range) methylPREDNISolone sodium succ (SOLU-Medrol) injection 125 mg (has no administration in time range) Patient was evaluated. Patient was borderline hypoxic on 4 L via nasal cannula so high flow O2 willbe initiated. Albuterol/Atrovent respiratory treatment. Solu-Medrol and magnesium IV. CBC Chem-7. Portable chest x-ray. Portable chest x-ray shows questionable slight infiltrate left base. With a high flow O2 there is no significant change so BiPAP will be initiated and nebulizer treatment will be given inline. Some of the albuterol spilled out while he was being placed into the inline BiPAP tubing so another 5 mg of albuterol will be added. Patient is more tachypneic appears a little anxious so fentanyl 50 mcg IV. Patient appears more comfortable with BiPAP. Respiratory viral panel is positive for influenza A. At 9:45 PM, patient was taken off of BiPAP and high flow O2 was put back on. He is tolerating it better than earlier. On reevaluation he has improvement movement but still inspiratory and expiratory wheezes so another 5 mg albuterol treatment will be rendered. Care will be transferred to the hospitalist service. Clinical Impressions as of 08/04/242133 COPD exacerbation ([facility]) Influenza A Procedures Critical Care Performed by: HUNTER Iniguez Authorized by: Hugh Ospina DO Critical care provider statement: Critical care time (minutes): 60 Critical care time was exclusive of: Separately billable procedures and treating other patients Critical care was necessary to treat or prevent imminent or life-threatening deterioration of the following conditions: Respiratory failure Critical care was time spent personally by me on the following activities: Evaluation of patient's response to treatment, examination of patient, obtaining history from patient or surrogate, re-evaluation of patient's condition, pulse oximetry, ordering and review of radiographic studies, ordering and review of laboratory studies, ordering and performing treatments and interventions and review ofold charts I assumed direction of critical care for this patient from another provider in my specialty: yes Care discussed with: admitting provider Diagnosis No diagnosis found. COPD exacerbation/influenza Disposition Data Unavailable Admit ED Prescriptions None Physician Attestation HUNTER Iniguez 08/04/242004 HUNTER Iniguez 08/04/242046 HUNTER Iniguez 08/04/242104 HUNTER Iniguez 08/04/242133 HUNTER Iniguez 08/04/242148 Cosigned by Hugh Ospina DO at 08/04/2024 10:36 PM EST documented in this encounter H&P Notes * HUNTER Hutchison - 08/05/2024 9:11 AM EST Images from the original note were not included. [facility] HISTORY AND PHYSICAL Patient: Toby Jackson Admission Date/Time: 08/04/2024 7:50 PM : 1960 [64 y.o.] Patient's PCP: Sanju Disla MD Attending Provider: Eric Norris MD CHIEF COMPLAINT Shortness of breath. HISTORY OF PRESENT ILLNESS 64-year-old male with a history of CAD, COPD on home O2 at 2 L via nasal cannula as needed, hypertension and further history as noted below presented to the emergency room with complaints of cough and shortness of breath that began yesterday morning. He used his home nebulizer treatments without relief. He denied any fever and/or chills. Noted no chest pain, abdominal pain, nausea, vomiting and/or diarrhea. He noted continued occasional cigarette use. Patient was noted to be in acute respiratory distress requiring high flow oxygen. 08/04/2024 CBC and BMP unrevealing except for random glucose of 107. Respiratory viral panel revealed influenza A detected. Chest x-ray revealed no acute process??? Please await radiologist interpretation At present time patient reports that he has had increased shortness of breath over the last week. He notes nonproductive cough. States that just doing simple tasks made him feel very winded. He reports improvement after receiving steroid. Review of Systems As per HPI. Other 10 point review of systems is negative. MEDICAL HISTORY Past Medical History Coronary artery disease COPD on home O2 2 L via nasal cannula as needed Hyperlipidemia Hypertension Osteoarthritis Inclusion cyst Cholelithiasis Lymphadenopathy 1.4 cm subcarinal Diverticulosis Past Surgical History Left total knee arthroplasty Dental extractions Social History Patient lives with family. He has a longstanding history of tobacco use and notes occasionally still smoking at times. He is on home O2 at 2 L via nasal cannula on an as-needed basis. He states he usually uses it with exertion. He notes that he has had it for 5 years. CODE STATUS DNR/DNI this was confirmed with the patient, he states he would not want to come back as a vegetable . Family History He denies any knowledge of family history of heart disease and or lung disease. He states my parents never talked about what was wrong. Allergies NKDA Home Medications Albuterol nebs as needed Allopurinol 100 mg daily Aspirin enteric-coated 81 mg daily Atorvastatin 80 mg at bedtime Bisacodyl 5 mg twice daily Colace 100 mg daily Fluticasone nasal spray inhaled daily Trelegy 200 mcg inhaled daily Isosorbide mononitrate ER 30 mg daily Losartan 100 mg daily Sublingual nitroglycerin 0.4 mg as needed Protonix 40 mg daily Potassium citrate ER 20 mEq twice daily Roflumilast 500 mcg daily OBJECTIVE Vitals Visit Vitals BP (!) 128/90 (BP Location: Right arm, Patient Position: Sitting) Pulse (!) 115 Temp 36.9 ??C (98.4 ??F) (Oral) Resp 16 Temp (24hrs), Av.3 ??C (99.2 ??F), Min:36.9 ??C (98.4 ??F), Max:37.7 ??C (99.9 ??F) Body mass index is 30.24 kg/m??. No results found for: PTWT , PTHT PHYSICAL EXAM: General: 64-year-old male sitting upright in no acute distress. He is alert and oriented able to answer questions and follow commands appropriately. HEENT: Pupils are equal, round and reactive to light. No facial asymmetry. Mucous membranes moist. Cardiovascular: S1S2, no murmur appreciated. Lungs: Diffuse wheezing, no rhonchi and or rales. Diminished throughout. Abdomen: Positive bowel sounds, soft, nontender without rebound and or guarding. Extremities: No erythema and/or edema. Active range of motion all 4 extremities. Cranial Nerves: [II through XII grossly intact.] LAB RESULTS (most recent) HEMATOLOGY Lab Results Component Value Date WBC 6.9 08/05/2024 HGB 13.1 (L) 08/05/2024 HCT 39.0 (L) 08/05/2024 MCV 93.1 08/05/2024 PLT 209 08/05/2024 CHEMISTRY Lab Results Component Value Date GLUCOSE 128 (H) 08/05/2024 NA 134 08/05/2024 K 4.4 08/05/2024 CO2 26 08/05/2024 CL 102 08/05/2024 BUN 22 08/05/2024 CREATININE 1.22 08/05/2024 EGFR 65 08/05/2024 CALCIUM 8.6 08/05/2024 MG 2.5 08/05/2024 PHOS 3.3 05/16/2024 ANIONGAP 6 08/05/2024 Radiology XR Chest 1 View Final Result Similar appearance of the chest compared with 05/14/2024. -------- FINAL REPORT -------- Dictated By: Raphael Denton Dictated Date: 08/05/2024 08:21 ET Assigned Physician: Raphael Denton Reviewed and Electronically Signed By: Raphael Denton Signed Date: 08/05/2024 08:23 ET Workstation ID: [id number] Transcribed By: Self Edit Transcribed Date: 08/05/2024 08:21 ET ASSESSMENT & PLAN Acute on chronic respiratory failure with hypoxia (usually on O2 at 2 L via nasal cannula on an as needed basis, currently requiring high flow oxygen) COPD exacerbation secondary to Influenza A - Admit. - Continue Tamiflu, Solu-Medrol, scheduled DuoNebs and albuterol as needed. - Precautions. - Followed by Dr. Gibbs. Coronary artery disease Hyperlipidemia Hypertension Echo 05/2024 revealed an EF of 50 to 55%. -On aspirin, a atorvastatin, losartan, isosorbide mononitrate and sublingual nitroglycerin as needed. DVT prophylaxis - Lovenox. CODE STATUS: DNR/DNI. Cosigned by Aamir Jones MD at 08/16/2024 7:23 AM EST Associated attestation - Aamir Jones MD - 08/16/2024 7:23 AM EST This is a split/shared visit with HUNTER Hutchison. I personally performed the medical decision making (MDM) for the care of this patient on 08/05/24 as documented below Patient was discussed with Advanced Practice Provider. I personally saw and examined the patient atbedside. I independently obtained further history and reviewed significant updates, labs and imaging. I also contacted pertinent consultants in order to facilitate patient's medical care. Otherwise, I agree with the documentation and plan as outlined in the note below. Aamir Jones MD 08/16/24 7:22 AM EST documented in this encounter Plan of Treatment Upcoming Encounters Date Type Department Care Team (Late st Contact Info) Description 09/06/2024 2:15 PM EST Office Visit Pulmonolgy - [place] [address] [facility] [address] [place] [address] Jayshree Gibbs MD [address] [address] [place] [address] documented as of this encounter Procedures Procedure Name Priority Date/Time Associated Diagnosis Comments CBC WITH AUTO DIFFERENTIAL Timed 08/07/2024 6:15 AM EST CBC AND DIFFERENTIAL Timed 08/07/2024 6:15 AM EST BASIC METABOLIC PANEL Timed 08/07/2024 6:15 AM EST PEP THERAPY Routine 08/06/2024 6:00 AM EST COMPLETE BLOOD COUNT Routine 08/06/2024 5:43 AM EST BASIC METABOLIC PANEL Routine 08/06/2024 5:43 AM EST PEP THERAPY Routine 08/05/2024 6:01 AM EST LT GREEN - LI HEPARIN Routine 08/05/2024 5:48 AM EST EXTRA TUBES Routine 08/05/2024 5:48 AM EST EXTRA TUBES Routine 08/05/2024 5:48 AM EST CBC WITH AUTO DIFFERENTIAL Routine 08/05/2024 5:48 AM EST GREEN - NA HEPARIN Routine 08/05/2024 5: 48 AM EST CBC AND DIFFERENTIAL Routine 08/05/2024 5:48 AM EST MAGNESIUM Routine 08/05/2024 5:48 AM EST VENOUS BLOOD GAS Routine 08/05/2024 5:48 AM EST BASIC METABOLIC PANEL Routine 08/05/2024 5:48 AM EST PEP THERAPY Routine 08/04/2024 10:20 PM EST XR CHEST 1 VIEW STAT 08/04/2024 8:33 PM EST ECG 12-LEAD STAT 08/04/2024 8:33 PM EST RESPIRATORY VIRUS PANEL MOLECULAR STUDY STAT 08/04/2024 8:12 PM EST PROCALCITONIN STAT Add-on 08/04/2024 8:12 PM EST COMPLETE BLOOD COUNT STAT 08/04/2024 8:12 PM EST BASIC METABOLIC PANEL STAT 08/04/2024 8:12 PM EST OXYGEN THERAPY, ADULT Routine 08/04/2024 8:01 PM EST OXYGEN THERAPY, ADULT Routine 08/04/2024 8:01 PM EST RI CRITICAL CARE EACH ADDITIONAL 30 MINUTES Routine 08/04/2024 7:45 PM EST RI CRITICAL CARE EACH ADDITIONAL 30 MINUTES Routine 08/04/2024 7:45 PM EST ECG ANNOTATED 08/04/2024 documented in this encounter Results * (ABNORMAL) CBC auto differential (08/07/2024 6:15 AM EST) [facility] WBC 7.5 4.8 - 10.8 K/mcL LAB HEMETOLOGY METHOD 08/07/2024 8:[address] [facility] RBC 4.40(L) 4.50 - 5.50 M/mcL LAB HEMETOLOGY METHOD 08/07/2024 8:[address] [facility] Hemoglobin 13.4(L) 13.5 - 17.5 g/dL LAB HEMETOLOGY METHOD 08/07/2024 8:[address] [facility] Hematocrit 40.6(L) 42.0 - 54.0 % LAB HEMETOLOGY METHOD 08/07/2024 8:[address] [facility] MCV 92.5 79.0 - 98.0 FL LAB HEMETOLOGY METHOD 08/07/2024 8:[address] [facility] MCH 30.5 27.0 - 32.0 pcg LAB HEMETOLOGY METHOD 08/07/2024 8:[address] [facility] MCHC 33.0 32.0 - 37.0 g/dL LAB HEMETOLOGY METHOD 08/07/2024 8:[address] [facility] RDW 12.5 11.0 - 15.0 % LAB HEMETOLOGY METHOD 08/07/2024 8:[address] [facility] Platelets 232 130 - 400 K/mcL LAB HEMETOLOGY METHOD 08/07/2024 8:[address] [facility] MPV 9.4 7.0 - 11.0 FL LAB HEMETOLOGY METHOD 08/07/2024 8:[address] [facility] NRBC 0.0 <1.0 % LAB HEMETOLOGY METHOD 08/07/2024 8:[address] [facility] NRBC Absolute 0.00 <0.10 K/mcL LAB HEMETOLOGY METHOD 08/07/2024 8:[address] [facility] Neutrophils Relative 80.6 % LAB HEMETOLOGY METHOD 08/07/2024 8:[address] [facility] Comment:This is an appended report. These results have been appended to a previously preliminary verified report. Lymphocytes Relative 11.8 % LAB HEMETOLOGY METHOD 08/07/2024 8:[address] [facility] Comment:This is an appended report. These results have been appended to a previously preliminary verified report. Monocytes Relative 7.2 % LAB HEMETOLOGY METHOD 08/07/2024 8:[address] [facility] Comment:This is an appended report. These results have been appended to a previously preliminary verified report. Eosinophils Relative 0.0 % LAB HEMETOLOGY METHOD 08/07/2024 8:[address] [facility] Comment:This is an appended report. These results have been appended to a previously preliminary verified report. Basophils Relative 0.0 % LAB HEMETOLOGY METHOD 08/07/2024 8:[address] [facility] Comment:This is an appended report. These results have been appended to a previously preliminary verified report. Immature Granulocytes Relative 0.4 % LAB HEMETOLOGY METHOD 08/07/2024 8:[address] [facility] Comment:This is an appended report. These results have been appended to a previously preliminary verified report. Neutrophils Absolute 6.00 1.50 - 7.00 K/mcL LAB HEMETOLOGY METHOD 08/07/2024 8:32 AM EST [facility] Comment:This is an appended report. These results have been appended to a previously preliminary verified report. Lymphocytes Absolute 0.88(L) 1.00 - 5.00 K/[facility] LAB HEMETOLOGY METHOD 08/07/2024 8:32 AM EST [facility] Comment:This is an appended report. These results have been appended to a previously preliminary verified report. Monocytes Absolute 0.54 0.20 - 1.00 K/[facility] LAB HEMETOLOGY METHOD 08/07/2024 8:32 AM EST [facility] Comment:This is an appended report. These results have been appended to a previously preliminary verified report. Eosinophils Absolute 0.00 0.00 - 0.50 K/mcL LAB HEMETOLOGY METHOD 08/07/2024 8:32 AM EST [facility] Comment:This is an appended report. These results have been appended to a previously preliminary verified report. Basophils Absolute 0.00 0.00 - 0.20 K/[facility] LAB HEMETOLOGY METHOD 08/07/2024 8:32 AM EST [facility] Comment:This is an appended report. These results have been appended to a previously preliminary verified report. Immature Granulocytes Absolute 0.03 0.00 - 0.03 K/[facility] LAB HEMETOLOGY METHOD 08/07/2024 8:32 AM EST [facility] Comment:This is an appended report. These results have been appended to a previously preliminary verified report. Blood Venous blood specimen / Unknown Venipuncture / Unknown 08/07/2024 6:15 AM EST 08/07/2024 7:04 AM EST us Bill Cervantes MD LAB BLOOD ORDERABLES Final Resul t [facility] [address] [place] [address], * (ABNORMAL) Basic metabolic panel (08/07/2024 6:15 AM EST) Sodium 137 133 - 145 mmol/L LAB CHEMISTRY METHOD 08/07/2024 7:[address] [facility] Potassium 4.7 3.5 - 5.5 mmol/L LAB CHEMISTRY METHOD 08/07/2024 7:[address] [facility] Chloride 103 96 - 110 mmol/L LAB CHEMISTRY METHOD 08/07/2024 7:[address] [facility] CO2 31 21 - 32 mmol/L LAB CHEMISTRY METHOD 08/07/2024 7:[address] [facility] Anion Gap 3 3 - 11 LAB CHEMISTRY METHOD 08/07/2024 7:[address] [facility] Glucose 101(H) 70 - 100 mg/dL LAB CHEMISTRY METHOD 08/07/2024 7:[address] [facility] BUN 23 5 - 25 mg/dL LAB CHEMISTRY METHOD 08/07/2024 7:[address] [facility] Creatinine 0.99 0.70 - 1.30 mg/dL LAB CHEMISTRY METHOD 08/07/2024 7:[address] [facility] eGFR 84 >=60 mL/min/1. 73m2 LAB CHEMISTRY METHOD 08/07/2024 7:[address] [facility] Comment:Calculation based on the??Chronic Kidney Disease Epidemiology Collaboration (CKD-EPI) equation refit??without adjustment for race. BUN/Creatinine Ratio 23.2 LAB CHEMISTRY METHOD 08/07/2024 7:[address] [facility] Calcium 9.2 8.5 - 10.5 mg/dL LAB CHEMISTRY METHOD 08/07/2024 7:[address] [facility] Blood Venous blood specimen / Unknown Venipuncture / Unknown 08/07/2024 6:15 AM EST 08/07/2024 7:04 AM EST us Bill Cervantes MD LAB BLOOD ORDERABLES Final Resul t [facility] [address] [place] [address], * (ABNORMAL) Basic metabolic panel (08/06/2024 5:43 AM EST) Sodium 135 133 - 145 mmol/L LAB CHEMISTRY METHOD 08/06/2024 7:[address] [facility] Potassium 5.0 3.5 - 5.5 mmol/L LAB CHEMISTRY METHOD 08/06/2024 7:[address] [facility] Chloride 100 96 - 110 mmol/L LAB CHEMISTRY METHOD 08/06/2024 7:[address] [facility] CO2 31 21 - 32 mmol/L LAB CHEMISTRY METHOD 08/06/2024 7:[address] [facility] Anion Gap 4 3 - 11 LAB CHEMISTRY METHOD 08/06/2024 7:[address] [facility] Glucose 117(H) 70 - 100 mg/dL LAB CHEMISTRY METHOD 08/06/2024 7:[address] [facility] BUN 25 5 - 25 mg/dL LAB CHEMISTRY METHOD 08/06/2024 7:[address] [facility] Creatinine 1.08 0.70 - 1.30 mg/dL LAB CHEMISTRY METHOD 08/06/2024 7:[address] [facility] eGFR 76 >=60 mL/min/1. 73m2 LAB CHEMISTRY METHOD 08/06/2024 7:[address] [facility] Comment:Calculation based on the??Chronic Kidney Disease Epidemiology Collaboration (CKD-EPI) equation refit??without adjustment for race. BUN/Creatinine Ratio 23.1 LAB CHEMISTRY METHOD 08/06/2024 7:[address] [facility] Calcium 9.2 8.5 - 10.5 mg/dL LAB CHEMISTRY METHOD 08/06/2024 7:[address] [facility] Blood Venous blood specimen / Unknown Venipuncture / Unknown 08/06/2024 5:43 AM EST 08/06/2024 6:50 AM EST us Kanika HARRISON LAB BLOOD ORDERABLES Final Resul t [facility] [address] [place] [address], [place] [phone] * (ABNORMAL) Complete blood count (08/06/2024 5:43 AM EST) WBC 7.8 4.8 - 10.8 K/mcL LAB HEMETOLOGY METHOD 08/06/2024 7:[address] [facility] RBC 4.40(L) 4.50 - 5.50 M/mcL LAB HEMETOLOGY METHOD 08/06/2024 7:[address] [facility] Hemoglobin 13.8 13.5 - 17.5 g/dL LAB HEMETOLOGY METHOD 08/06/2024 7:[address] [facility] Hematocrit 42.1 42.0 - 54.0 % LAB HEMETOLOGY METHOD 08/06/2024 7:[address] [facility] MCV 95.0 79.0 - 98.0 FL LAB HEMETOLOGY METHOD 08/06/2024 7:[address] [facility] MCH 31.2 27.0 - 32.0 pcg LAB HEMETOLOGY METHOD 08/06/2024 7:[address] [facility] MCHC 32.8 32.0 - 37.0 g/dL LAB HEMETOLOGY METHOD 08/06/2024 7:[address] [facility] RDW 12.8 11.0 - 15.0 % LAB HEMETOLOGY METHOD 08/06/2024 7:[address] [facility] Platelets 233 130 - 400 K/mcL LAB HEMETOLOGY METHOD 08/06/2024 7:[address] [facility] MPV 9.4 7.0 - 11.0 FL LAB HEMETOLOGY METHOD 08/06/2024 7:17 AM EST [facility] NRBC 0.0 <1.0 % LAB HEMETOLOGY METHOD 08/06/2024 7:17 AM EST [facility] NRBC Absolute 0.00 <0.10 K/mcL LAB HEMETOLOGY METHOD 08/06/2024 7:17 AM EST [facility] Blood Venous blood specimen / Unknown Venipuncture / Unknown 08/06/2024 5:43 AM EST 08/06/2024 6:50 AM EST Kanika HARRISON LAB BLOOD ORDERABLES Final Resul t Performing Organization Address City/[facility]/ZIP Co de Phone Number [facility] [address] [place] [address], [place] [phone] * Green LI heparin tube (08/05/2024 5:48 AM EST) Extra Tube Hold for add-ons. 08/05/2024 8:01 AM EST [facility] Comment:Auto resulted. Blood Venous blood specimen / Unknown Venipuncture / Unknown 08/05/2024 5:48 AM EST 08/05/2024 6:08 AM EST Eric Norris MD LAB BLOOD ORDERABLES Final Result [facility] [address] [place] [address], [place] [phone] * Green NA heparin tube (08/05/2024 5:48 AM EST) Extra Tube Hold for add-ons. 08/05/2024 8:01 AM EST [facility] Comment:Auto resulted. Blood Venous blood specimen / Unknown 08/05/2024 5:48 AM EST 08/05/2024 6:07 AM EST us Eric Norris MD LAB BLOOD ORDERABLES Final Result [facility] [address] [place] [address], * (ABNORMAL) CBC auto differential (08/05/2024 5:48 AM EST) WBC 6.9 4.8 - 10.8 K/mcL LAB HEMETOLOGY METHOD 08/05/2024 6:[address] [facility] RBC 4.20(L) 4.50 - 5.50 M/mcL LAB HEMETOLOGY METHOD 08/05/2024 6:[address] [facility] Hemoglobin 13.1(L) 13.5 - 17.5 g/dL LAB HEMETOLOGY METHOD 08/05/2024 6:[address] [facility] Hematocrit 39.0(L) 42.0 - 54.0 % LAB HEMETOLOGY METHOD 08/05/2024 6:[address] [facility] MCV 93.1 79.0 - 98.0 FL LAB HEMETOLOGY METHOD 08/05/2024 6:[address] [facility] MCH 31.3 27.0 - 32.0 pcg LAB HEMETOLOGY METHOD 08/05/2024 6:[address] [facility] MCHC 33.6 32.0 - 37.0 g/dL LAB HEMETOLOGY METHOD 08/05/2024 6:[address] [facility] RDW 13.0 11.0 - 15.0 % LAB HEMETOLOGY METHOD 08/05/2024 6:[address] [facility] Platelets 209 130 - 400 K/mcL LAB HEMETOLOGY METHOD 08/05/2024 6:[address] [facility] MPV 9.1 7.0 - 11.0 FL LAB HEMETOLOGY METHOD 08/05/2024 6:[address] [facility] NRBC 0.0 <1.0 % LAB HEMETOLOGY METHOD 08/05/2024 6:[address] [facility] NRBC Absolute 0.00 <0.10 K/mcL LAB HEMETOLOGY METHOD 08/05/2024 6:[address] [facility] Neutrophils Relative 91.3 % LAB HEMETOLOGY METHOD 08/05/2024 6:[address] [facility] Lymphocytes Relative 2.3 % LAB HEMETOLOGY METHOD 08/05/2024 6:[address] [facility] Monocytes Relative 5.9 % LAB HEMETOLOGY METHOD 08/05/2024 6:[address] [facility] Eosinophils Relative 0.0 % LAB HEMETOLOGY METHOD 08/05/2024 6:[address] [facility] Basophils Relative 0.1 % LAB HEMETOLOGY METHOD 08/05/2024 6:[address] [facility] Immature Granulocytes Relative 0.4 % LAB HEMETOLOGY METHOD 08/05/2024 6:[address] [facility] Neutrophils Absolute 6.29 1.50 - 7.00 K/mcL LAB HEMETOLOGY METHOD 08/05/2024 6:[address] [facility] Lymphocytes Absolute 0.16(L) 1.00 - 5.00 K/mcL LAB HEMETOLOGY METHOD 08/05/2024 6:[address] [facility] Monocytes Absolute 0.41 0.20 - 1.00 K/mcL LAB HEMETOLOGY METHOD 08/05/2024 6:[address] [facility] Eosinophils Absolute 0.00 0.00 - 0.50 K/mcL LAB HEMETOLOGY METHOD 08/05/2024 6:[address] [facility] Basophils Absolute 0.01 0.00 - 0.20 K/mcL LAB HEMETOLOGY METHOD 08/05/2024 6:20 AM EST [facility] Immature Granulocytes Absolute 0.03 0.00 - 0.03 K/[facility] LAB HEMETOLOGY METHOD 08/05/2024 6:20 AM EST [facility] Blood Venous blood specimen / Unknown Venipuncture / Unknown 08/05/2024 5:48 AM EST 08/05/2024 6:03 AM EST Eric Norris MD LAB BLOOD ORDERABLES Final Result Performing Organization Address [facility]/ZIP Co de Phone Number [facility] [address] [place] [address], [place] [phone] * Magnesium (08/05/2024 5:48 AM EST) Magnesium 2.5 1.9 - 2.6 mg/dL LAB CHEMISTRY METHOD 08/05/2024 6:39 AM EST [facility] Blood Venous blood specimen / Unknown Venipuncture / Unknown 08/05/2024 5:48 AM EST 08/05/2024 6:04 AM EST Eric Norris MD LAB BLOOD ORDERABLES Final Result Performing Organization Address [facility]/ZIP Co de Phone Number [facility] [address] [place] [address], [place] [phone] * (ABNORMAL) Venous blood gas (08/05/2024 5:48 AM EST) pH, Donnell 7.27(L) 7.32 - 7.42 pH 08/05/2024 6:15 AM EST [facility] pCO2, Donnell 55(H) 41 - 51 mmHg 08/05/2024 6:[address] [facility] pO2, Donnell 65(H) 25 - 40 mmHg 08/05/2024 6:15 AM EST [facility] HCO3, Venous 22.8 22.0 - 26.0 mmol/L 08/05/2024 6:[address] [facility] O2 Sat, Donnell 92.8 % 08/05/2024 6:[address] [facility] Base Excess, Donnell -2.5(L) -2.0 - 2.0 mmol/L 08/05/2024 6:[address] [facility] Blood Venous blood specimen / Unknown Venipuncture / Unknown 08/05/2024 5:48 AM EST 08/05/2024 6:03 AM EST us Eric Norris MD LAB BLOOD ORDERABLES Final Result [facility] [address] [place] [address], [place] [phone] * (ABNORMAL) Basic metabolic panel (08/05/2024 5:48 AM EST) Sodium 134 133 - 145 mmol/L LAB CHEMISTRY METHOD 08/05/2024 6:[address] [facility] Potassium 4.4 3.5 - 5.5 mmol/L LAB CHEMISTRY METHOD 08/05/2024 6:[address] [facility] Chloride 102 96 - 110 mmol/L LAB CHEMISTRY METHOD 08/05/2024 6:[address] [facility] CO2 26 21 - 32 mmol/L LAB CHEMISTRY METHOD 08/05/2024 6:[address] [facility] Anion Gap 6 3 - 11 LAB CHEMISTRY METHOD 08/05/2024 6:[address] [facility] Glucose 128(H) 70 - 100 mg/dL LAB CHEMISTRY METHOD 08/05/2024 6:[address] [facility] BUN 22 5 - 25 mg/dL LAB CHEMISTRY METHOD 08/05/2024 6:[address] [facility] Creatinine 1.22 0.70 - 1.30 mg/dL LAB CHEMISTRY METHOD 08/05/2024 6:39 AM EST [facility] eGFR 65 >=60 mL/min/1. 73m2 LAB CHEMISTRY METHOD 08/05/2024 6:39 AM EST [facility] Comment:Calculation based on the??Chronic Kidney Disease Epidemiology Collaboration (CKD-EPI) equation refit??without adjustment for race. BUN/Creatinine Ratio 18.0 LAB CHEMISTRY METHOD 08/05/2024 6:39 AM EST [facility] Calcium 8.6 8.5 - 10.5 mg/dL LAB CHEMISTRY METHOD 08/05/2024 6:39 AM EST [facility] Blood Venous blood specimen / Unknown Venipuncture / Unknown 08/05/2024 5:48 AM EST 08/05/2024 6:04 AM EST Eric Norris MD LAB BLOOD ORDERABLES Final Result Performing Organization Address City/State/[facility] Co de Phone Number [facility] [address] [place] [address], [place] [phone] * XR Chest 1 View (08/04/2024 8:33 PM EST) Anatomical Region Laterality Modality Body Radiographic Isabel ging 08/05/2024 8:21 AM EST Impressions 08/05/2024 8:23 AM EST Similar appearance of the chest compared with 05/14/2024. -------- FINAL REPORT -------- Dictated By: Raphael Denton Dictated Date: 08/05/2024 08:21 ET Assigned Physician: Raphael Denton Reviewed and Electronically Signed By: Raphael Denton Signed Date: 08/05/2024 08:23 ET Workstation ID: [id number] Transcribed By: Self Edit Transcribed Date: 08/05/2024 08:21 ET Narrative 08/05/2024 8:23 AM EST PROCEDURE: AP chest radiograph. HISTORY: dyspnea. COMPARISON: 05/14/2024. FINDINGS: Patchy heterogeneous opacities at the bases, which may represent atelectasis. ??Biapical hyperlucency suggesting emphysema. ??Pleural spaces and cardiomediastinal contours are normal. Procedure Note Raphael Denton MD - 08/05/2024 PROCEDURE: AP chest radiograph. HISTORY: dyspnea. COMPARISON: 05/14/2024. FINDINGS: Patchy heterogeneous opacities at the bases, which may representatelectasis. Biapical hyperlucency suggesting emphysema. Pleural spacesand cardiomediastinal contours are normal. IMPRESSION: Similar appearance of the chest compared with 05/14/2024. -------- FINAL REPORT -------- Dictated By: Raphael Denton Dictated Date: 08/05/2024 08:21 ET Assigned Physician: Raphael Denton Reviewed and Electronically Signed By: Rapheal Denton Signed Date: 08/05/2024 08:23 ET Workstation ID: [id number] Transcribed By: Self Edit Transcribed Date: 08/05/2024 08:21 ET us Eric Norris MD IMG XR PROCEDURES Final Res ult * 12-Lead ECG (08/04/2024 8:33 PM EST) Ventricular Rate ECG 115 BPM GEMUSE Atrial Rate 115 BPM GEMUSE P-R Interval 138 ms GEMUSE QRS Duration 128 ms GEMUSE Q-T Interval 336 ms GEMUSE QTc 464 ms GEMUSE P Wave [place] 82 degrees GEMUSE R [place] 79 degrees GEMUSE T [place] 60 degrees GEMUSE ECG Interpretation Poor data quality, interpretation may be adversely affected Sinus tachycardia Right bundle branch block Abnormal ECG When compared with ECG of 11-JUL-2024 13:06, No significant change was found Confirmed by SILVER VALENTE ([id number]) on 08/06/2024 2:23:25 PM GEMUSE 08/04/2024 8:33 PM EST 08/06/2024 2:23 PM EST us González HARRISON ECG ORDERABLES Final Result JAIRUSE * Procalcitonin (08/04/2024 8:12 PM EST) Pathologist [facility] Procalcitonin 0.08 <=0.16 ng/mL LAB CHEMISTRY METHOD 08/05/2024 12:23 PM EST [facility] Blood Venous blood specimen / Unknown Venipuncture / Unknown 08/04/2024 8:12 PM EST 08/04/2024 8:23 PM EST Narrative [facility] - 08/05/2024 12:23 PM EST Procalcitonin > 2.00 ng/ml: Procalcitonin Levels above 2.00 ng/ml, on the first day of ICU admission represent a high risk for progression to severe sepsis and/or septic shock. Procalcitonin < 0.50 ng/ml: Procalcitonin levels below 0.50 ng/ml on the first day of ICU admission represent a low risk for progression to severe sepsis and/or septic shock. Concentrations <0.5 ng/mL do not exclude an infection, on account of local ized infections (without systemic signs) which can be associated with such low concentrations, or a systemic infection in its initial stages (<6 hours). Furthermore, increased procalcitonin can occur without infection. PCT concentrations between 0.5 and 2.0 ng/mL should be interpreted taking into account the patient's history. It is recommended to retest PCT within 6-24 hours if any concentrations <2.0 ng/mL are obtained. us Eric Norris MD LAB BLOOD ORDERABLES Final Result Performing Organization Address [facility] Co de Phone Number [facility] [address] [place] [address], * (ABNORMAL) Respiratory virus panel molecular study (08/04/2024 8:12 PM EST) Pathologist [facility] Adenovirus Detection by PCR Not Detected Not Detected LAB MICROBIOLOGY METHOD 08/04/2024 9:20 PM EST [facility] Influenza B PCR Not Detected Not Detected LAB MICROBIOLOGY METHOD 08/04/2024 9:20 PM EST [facility] Coronavirus 229E Not Detected Not Detected LAB MICROBIOLOGY METHOD 08/04/2024 9:20 PM EST [facility] Coronavirus HKU1 Not Detected Not Detected LAB MICROBIOLOGY METHOD 08/04/2024 9:[address] [facility] Coronavirus OC43 Not Detected Not Detected LAB MICROBIOLOGY METHOD 08/04/2024 9:20 PM EST [facility] Coronavirus NL63 Not Detected Not Detected LAB MICROBIOLOGY METHOD 08/04/2024 9:20 PM EST [facility] Parainfluenza Virus 1 Not Detected Not Detected LAB MICROBIOLOGY METHOD 08/04/2024 9:[address] [facility] Parainfluenza Virus 2 Not Detected Not Detected LAB MICROBIOLOGY METHOD 08/04/2024 9:[address] [facility] Parainfluenza Virus 3 Not Detected Not Detected LAB MICROBIOLOGY METHOD 08/04/2024 9:20 PM EST [facility] Parainfluenza Virus 4 Not Detected Not Detected LAB MICROBIOLOGY METHOD 08/04/2024 9:[address] [facility] RSV PCR Not Detected Not Detected LAB MICROBIOLOGY METHOD 08/04/2024 9:[address] [facility] Human Metapneumovirus A and B Not Detected Not Detected LAB MICROBIOLOGY METHOD 08/04/2024 9:[address] [facility] Rhinovirus/Entero virus Not Detected Not Detected LAB MICROBIOLOGY METHOD 08/04/2024 9:[address] [facility] Bordetella pertussis Not Detected Not Detected LAB MICROBIOLOGY METHOD 08/04/2024 9:[address] [facility] Bordetella parapertussis Not Detected Not Detected LAB MICROBIOLOGY METHOD 08/04/2024 9:[address] [facility] Influenza A H3 Detected(A ) Not Detected LAB MICROBIOLOGY METHOD 08/04/2024 9:[address] [facility] Mycoplasma pneumo by PCR Not Detected Not Detected LAB MICROBIOLOGY METHOD 08/04/2024 9:20 PM EST [facility] Chlamydia pneumoniae Not Detected Not Detected LAB MICROBIOLOGY METHOD 08/04/2024 9:[address] [facility] SARS COV-2 Not Detected Not Detected LAB MICROBIOLOGY METHOD 08/04/2024 9:[address] [facility] Swab Both anterior nares / Unknown Non-blood Collection / Unknown 08/04/2024 8:12 PM EST 08/04/2024 8:23 PM EST Narrative [facility] - 08/04/2024 9:20 PM EST Testing was performed using the [employer] Respiratory Pathogen PCR Assay. All results must be correlated with the clinical findings. Results should not be used as the sole basis for diagnosis. False Negative results may occur from the presence of sequence variants in the region targeted by the assay or the presence of inhibitors. Results may be affected by concurrent antiviral/antimicrobial therapy or levels of organisms that are below the limit of detection. González HARRISON LAB MICROBIOLOGY - GENERAL O RDERABLES Final Result [facility] [address] [place] [address], * (ABNORMAL) CBC (08/04/2024 8:12 PM EST) WBC 7.3 4.8 - 10.8 K/mcL LAB HEMETOLOGY METHOD 08/04/2024 8:[address] [facility] RBC 4.40(L) 4.50 - 5.50 M/mcL LAB HEMETOLOGY METHOD 08/04/2024 8:[address] [facility] Hemoglobin 13.6 13.5 - 17.5 g/dL LAB HEMETOLOGY METHOD 08/04/2024 8:[address] [facility] Hematocrit 39.9(L) 42.0 - 54.0 % LAB HEMETOLOGY METHOD 08/04/2024 8:28 PM EST [facility] MCV 91.5 79.0 - 98.0 FL LAB HEMETOLOGY METHOD 08/04/2024 8:28 PM EST [facility] MCH 31.2 27.0 - 32.0 pcg LAB HEMETOLOGY METHOD 08/04/2024 8:28 PM EST [facility] MCHC 34.1 32.0 - 37.0 g/dL LAB HEMETOLOGY METHOD 08/04/2024 8:28 PM EST [facility] RDW 13.1 11.0 - 15.0 % LAB HEMETOLOGY METHOD 08/04/2024 8:28 PM EST [facility] Platelets 225 130 - 400 K/mcL LAB HEMETOLOGY METHOD 08/04/2024 8:28 PM EST [facility] MPV 8.9 7.0 - 11.0 FL LAB HEMETOLOGY METHOD 08/04/2024 8:28 PM EST [facility] NRBC 0.0 <1.0 % LAB HEMETOLOGY METHOD 08/04/2024 8:28 PM EST [facility] NRBC Absolute 0.00 <0.10 K/mcL LAB HEMETOLOGY METHOD 08/04/2024 8:[address] [facility] Blood Venous blood specimen / Unknown Venipuncture / Unknown 08/04/2024 8:12 PM EST 08/04/2024 8:23 PM EST us González HARRISON LAB BLOOD ORDERABLES Final R esult [facility] [address] [place] [address], * (ABNORMAL) Basic Metabolic Panel (BMP) (08/04/2024 8:12 PM EST) [facility] Sodium 137 133 - 145 mmol/L LAB CHEMISTRY METHOD 08/04/2024 8:[address] [facility] Potassium 4.1 3.5 - 5.5 mmol/L LAB CHEMISTRY METHOD 08/04/2024 8:[address] [facility] Chloride 106 96 - 110 mmol/L LAB CHEMISTRY METHOD 08/04/2024 8:[address] [facility] CO2 28 21 - 32 mmol/L LAB CHEMISTRY METHOD 08/04/2024 8:[address] [facility] Anion Gap 3 3 - 11 LAB CHEMISTRY METHOD 08/04/2024 8:[address] [facility] Glucose 107(H) 70 - 100 mg/dL LAB CHEMISTRY METHOD 08/04/2024 8:[address] [facility] BUN 19 5 - 25 mg/dL LAB CHEMISTRY METHOD 08/04/2024 8:[address] [facility] Creatinine 1.15 0.70 - 1.30 mg/dL LAB CHEMISTRY METHOD 08/04/2024 8:[address] [facility] eGFR 70 >=60 mL/min/1. 73m2 LAB CHEMISTRY METHOD 08/04/2024 8:[address] [facility] Comment:Calculation based on the??Chronic Kidney Disease Epidemiology Collaboration (CKD-EPI) equation refit??without adjustment for race. BUN/Creatinine Ratio 16.5 LAB CHEMISTRY METHOD 08/04/2024 8:[address] [facility] Calcium 8.9 8.5 - 10.5 mg/dL LAB CHEMISTRY METHOD 08/04/2024 8:[address] [facility] Blood Venous blood specimen / Unknown Venipuncture / Unknown 08/04/2024 8:12 PM EST 08/04/2024 8:23 PM EST us González HARRISON LAB BLOOD ORDERABLES Final R esult [facility] [address] [place] [address], * RI CRITICAL CARE EACH ADDITIONAL 30 MINUTES, RI CRITICAL CARE EACH ADDITIONAL 30 MINUTES (08/04/2024 7:45 PM EST) Narrative Hugh Ospina DO - 08/04/2024 7:45 PM EST HUNTER Iniguez ? 08/04/2024 ??9:49 PM Critical Care Performed by: HUNTER Iniguez Authorized by: Hugh Ospina DO ?? Critical care provider statement: ??Critical care time (minutes): ??60 ??Critical care time was exclusive of: ??Separately billable procedures and treating other patients ??Critical care was necessary to treat or prevent imminent or life-threatening deterioration of the following conditions: ??Respiratory failure ??Critical care was time spent personally by me on the following activities: ??Evaluation of patient's response to treatment, examination of patient, obtaining history from patient or surrogate, re-evaluation of patient's condition, pulse oximetry, ordering and review of radiographic studies, ordering and review of laboratory studies, ordering and performing treatments and interventions and review of old charts ??I assumed direction of critical care for this patient from another provider in my specialty: yes ?Care discussed with: admitting provider ?? us Hugh Ospina DO IN CLINIC/BEDSIDE ORDERABLES Ed ited Result - Final * ECG-Annotated (08/04/2024) Provider Onbase MD ECG ORDERABLES Final Result documented in this encounter Visit Diagnoses Diagnosis Acute on chronic hypoxic respiratory failure (CMS/HCC)- Primary COPD exacerbation (CMS/HCC) Obstructive chronic bronchitis with exacerbation Influenza A Influenza with other respiratory manifestations Chronic obstructive pulmonary disease with acute exacerbation (CMS/HCC) documented in this encounter Admitting Diagnoses Diagnosis Acute on chronic hypoxic respiratory failure (CMS/HCC) documented in this encounter Administered Medications Inactive Administered Medications - up to 3 most recent administrations Medication Order MAR Action Action Date Dose Rate Site albuterol 2.5 mg /3 mL (0.083 %) nebulizer solution 10 mg 10 mg, nebulization, Once, On Wed08/04/24 at 2001, For 1 dose Given 08/04/2024 8:10 PM EST 10 mg albuterol 2.5 mg /3 mL (0.083 %) nebulizer solution 5 mg 5 mg, nebulization, Once, On Wed08/04/24 at 2105, For 1 dose Given 08/04/2024 9:24 PM EST 5 mg albuterol 2.5 mg /3 mL (0.083 %) nebulizer solution 5 mg 5 mg, nebulization, Once, On Wed08/04/24 at 2150, For 1 dose Given 08/04/2024 10:03 PM EST 5 mg allopurinoL (ZYLOPRIM) tablet 100 mg 100 mg, oral, Daily, First dose on 08/05/24 at 0900 Given 08/07/2024 8:23 AM EST 100 mg Given 08/06/2024 8:36 AM EST 100 mg Given 08/05/2024 8:49 AM EST 100 mg aspirin EC tablet 81 mg 81 mg, oral, Daily, First dose on Wed08/05/24 at 0900, Do not crush, chew, or split. Given 08/07/2024 8:23 AM EST 81 mg Given 08/06/2024 8:35 AM EST 81 mg Given 08/05/2024 8:44 AM EST 81 mg atorvastatin (LIPITOR) tablet 80 mg 80 mg, oral, Daily, First dose on Wed08/05/24 at 0900 Given 08/07/2024 8:23 AM EST 80 mg Given 08/06/2024 8:35 AM EST 80 mg Given 08/05/2024 8:44 AM EST 80 mg bisacodyL (DULCOLAX) EC tablet 10 mg 10 mg, oral, Nightly, First dose on Wed08/04/24 at 2221, Do not give within 1 hour of antacids, milk, or dairy products. Do not crush, chew, or split. Given 08/06/2024 8:32 PM EST 10 mg Given 08/05/2024 9:32 PM EST 10 mg Given 08/04/2024 11:05 PM EST 10 mg enoxaparin (LOVENOX) injection 40 mg 40 mg, subcutaneous, Every 24 hours scheduled, First dose on Wed08/05/24 at 0900, Indication: VTE/PE Prophylaxis Given 08/07/2024 8:24 AM EST 40 mg Left Upper Abdomen Given 08/06/2024 8:36 AM EST 40 mg Ri ght Lower Abdomen Given 08/05/2024 8:45 AM EST 40 mg Le ft Lower Abdomen fentaNYL (PF) (SUBLIMAZE) injection 50 mcg 50 mcg, intravenous, Once, On Wed08/04/24 at 2103, For 1 dose Given 08/04/2024 9:14 PM EST 50 mcg ipratropium (ATROVENT) 0.02 % nebulizer solution 0.5 mg 0.5 mg, nebulization, Once, On Wed08/04/24 at 2002, For 1 dose, Give with albuterol if concurrently ordered. Given 08/04/2024 8:12 PM EST 0.5 mg ipratropium-albuteroL (DUONEB) 0.5-2.5 mg/3 mL nebulizer solution 3 mL 3 mL, nebulization, 4 times daily, First dose on Wed08/04/24 at 2221 Given 08/07/2024 3:31 PM EST 3 mL Given 08/07/2024 11:24 AM EST 3 mL Given 08/07/2024 7:40 AM EST 3 mL isosorbide mononitrate (IMDUR) 24 hr tablet 30 mg 30 mg, oral, Daily, First dose on 08/05/24 at 0900, Do not crush or chew. Given 08/07/2024 8:24 AM EST 30 mg Given 08/06/2024 8:36 AM EST 30 mg Given 08/05/2024 8:44 AM EST 30 mg lactated Ringer's infusion 100 mL/hr, intravenous, Continuous, Starting on Wed08/04/24 at 2221, For 10 hours Rate/Dose Verify 08/05/2024 9:37 AM EST 100 mL/hr 100 mL/hr Rate/Dose Verify 08/05/2024 6:27 AM EST 100 mL/hr 100 mL/ hr Rate/Dose Verify 08/05/2024 3:37 AM EST 100 mL/hr 100 mL/ hr losartan (COZAAR) tablet 100 mg 100 mg, oral, Daily, First dose on 08/05/24 at 1045 Given 08/07/2024 8:24 AM EST 100 mg Given 08/06/2024 8:36 AM EST 100 mg Given 08/05/2024 10:35 AM EST 100 mg magnesium sulfate 2 gram/50 mL (4 %) IVPB 2 g 2 g, intravenous, at 150 mL/hr, Administer over 20 Minutes, Once, On Wed08/04/24 at 2001, For 1 dose New Bag 08/04/2024 8:23 PM EST 2 g 150 mL/hr methylPREDNISolone sodium succ (SOLU-Medrol) injection 125 mg 125 mg, intravenous, Once, On Wed08/04/24 at 2001, For 1 dose, Reconstitute each 125 mg vial with 2 mL sterile water for injection to a concentration of 62.5 mg/mL. Given 08/04/2024 8:22 PM EST 125 mg methylPREDNISolone sodium succ (SOLU-Medrol) injection 40 mg 40 mg, intravenous, Every 12 hours scheduled, First dose on Wed08/05/24 at 0900, Reconstitute each 40 mg vial with 1 mL sterile water for injection to a concentration of 40 mg/mL. Given 08/07/2024 8:24 AM EST 40 mg Given 08/06/2024 8:31 PM EST 40 mg Given 08/06/2024 8:37 AM EST 40 mg ondansetron (PF) (ZOFRAN) injection 4 mg 4 mg, intravenous, Every 8 hours PRN, vomiting, nausea, Starting on Wed08/04/24 at 2220, -ONLY give IV if patient is unable to take orally. -If inadequate response within 30 minutes, proceed to next-line agent or contact provider if no further options ordered. ondansetron ODT (ZOFRAN-ODT) disintegrating tablet 4 mg 4 mg, oral, Every 8 hours PRN, vomiting, nausea, Starting on Wed08/04/24 at 2220, -Give IV if patient is unable to take orally. -If inadequate response within 30 minutes, proceed to next-line agent or contact provider if no further options ordered. For ODT tablets: -Do not remove from blister pack until just before administering. -Patient should allow tablet to dissolve on tongue. oseltamivir (TAMIFLU) capsule 75 mg 75 mg, oral, 2 times daily, First dose on Wed08/04/24 at 2128, For 5 days, Indication: Influenza Given 08/04/2024 10:01 PM EST 75 mg oseltamivir (TAMIFLU) capsule 75 mg 75 mg, oral, 2 times daily, First dose (after last modification) on Wed08/05/24 at 0900, For 9 doses, Indication: Influenza Given 08/07/2024 8:24 AM EST 75 mg Given 08/06/2024 8:32 PM EST 75 mg Given 08/06/2024 8:35 AM EST 75 mg pantoprazole (PROTONIX) EC tablet 40 mg 40 mg, oral, Every morning before breakfast, First dose on Wed08/05/24 at 0700, Do not crush, chew, or split. Given 08/07/2024 6:16 AM EST 40 mg Given 08/06/2024 6:34 AM EST 40 mg Given 08/05/2024 8:44 AM EST 40 mg predniSONE (DELTASONE) tablet 60 mg 60 mg, oral, Daily with breakfast, First dose on Wed08/08/24 at 0800 prochlorperazine (COMPAZINE) injection 10 mg 10 mg, intravenous, Every 6 hours PRN, nausea, vomiting, Starting on Wed08/04/24 at 2220, 2nd Line Option: -ONLY give IV if patient is unable to take orally. -Give IM if patient does not have IV Access -If inadequate response within 30 minutes, proceed to next-line agent or contact provider if no further options ordered. prochlorperazine (COMPAZINE) suppository 25 mg 25 mg, rectal, Every 12 hours PRN, nausea, vomiting, Starting on Wed08/04/24 at 2220, 2nd Line Option: -ONLY give RI if patient is unable to take orally and cannot receive IV/IM. -If inadequate response within 30 minutes, proceed to next-line agent or contact provider if no further options ordered. prochlorperazine (COMPAZINE) tablet 10 mg 10 mg, oral, Every 6 hours PRN, nausea, vomiting, Starting on Wed08/04/24 at 2220, 2nd Line Option: -Give IV or IM if patient is unable to take orally. -If inadequate response within 30 minutes, proceed to next-line agent or contact provider if no further options ordered. roflumilast (DALIRESP) tablet 500 mcg 500 mcg, oral, Daily, First dose on Wed08/05/24 at 0900 Given 08/07/2024 8:24 AM EST 500 mcg Given 08/06/2024 9:46 AM EST 500 mcg Given 08/05/2024 9:33 AM EST 500 mcg sodium chloride 0.9 % flush 10 mL 10 mL, intravenous, 2 times daily, First dose on Wed08/04/24 at 2221 Given 08/07/2024 8:24 AM EST 10 mL Given 08/06/2024 8:32 PM EST 10 mL Given 08/06/2024 9:46 AM EST 10 mL sodium chloride 0.9 % flush 10 mL 10 mL, intravenous, As needed, line care, Starting on Wed08/04/24 at 2220 documented in this encounter Active and Recently Administered Medications Times are shown in EST. Scheduled Medication Order 08/05/2024 08/06/2024 08/07/2024 allopurinoL (ZYLOPRIM) tablet 100 mg 100 mg, oral, Daily, First dose on 08/05/24 at 0900 0849 (Given - Provider: Marry Arshad RN) 0836 (Given - Provider: Ghada Almaraz RN) 0823 (Given - Provider: Yessica Kohler RN) aspirin EC tablet 81 mg 81 mg, oral, Daily, First dose on 08/05/24 at 0900, Do not crush, chew, or split. 0844 (Given - Provider: Marry Arshad RN) 0835 (Given - Provider: Ghada Almaraz RN) 0823 (Given - Provider: Yessica Kohler RN) atorvastatin (LIPITOR) tablet 80 mg 80 mg, oral, Daily, First dose on 08/05/24 at 0900 0844 (Given - Provider: Marry Arshad RN) 0835 (Given - Provider: Ghada Almaraz RN) 0823 (Given - Provider: Yessica Kohler RN) bisacodyL (DULCOLAX) EC tablet 10 mg 10 mg, oral, Nightly, First dose on Wed08/04/24 at 2221, Do not give within 1 hour of antacids, milk, or dairy products. Do not crush, chew, or split. 2131 (Given - Provider: Patrice Liang RN) 2031 (Given - Provider: Kika Morales RN) enoxaparin (LOVENOX) injection 40 mg 40 mg, subcutaneous, Every 24 hours scheduled, First dose on 08/05/24 at 0900, Indication: VTE/PE Prophylaxis 0845 (Given - Provider: Marry Arshad RN) 0836 (Given - Provider: Ghada Almaraz RN) 0824 (Given - Provider: Yessica Kohler RN) ipratropium-albuteroL (DUONEB) 0.5-2.5 mg/3 mL nebulizer solution 3 mL 3 mL, nebulization, 4 times daily, First dose on Wed08/04/24 at 2221 0909 (Given - Provider: Tisha Engle - Comment: tad)1129 (Given - Provider: Tisha Engle)1623 (Given - Provider: Erik Yanez)2049 (Given - Provider: Yuridia Godinez) 0819 (Given - Provider: Erik Yanez)1140 (Given - Provider: Erik Yanez)1518 (Given - Provider: Erik Yanez)1915 (Given - Provider: La Hoff) 0740 (Given - Provider: Crys Rodriguez)1124 (Given - Provider: Crys Rodriguez)1531 (Given - Provider: Crys Rodriguez) isosorbide mononitrate (IMDUR) 24 hr tablet 30 mg 30 mg, oral, Daily, First dose on 08/05/24 at 0900, Do not crush or chew. 0844 (Given - Provider: Marry Arshad RN) 0836 (Given - Provider: Ghada Almaraz RN) 0824 (Given - Provider: Yessica Kohler RN) losartan (COZAAR) tablet 100 mg 100 mg, oral, Daily, First dose on 08/05/24 at 1045 1035 (Given - Provider: Beverly Hair RN) 0836 (Given - Provider: Ghada Almaraz, JOLANTA) 0824 (Given - Provider: Yessica Kohler, JOLANTA) methylPREDNISolone sodium succ (SOLU-Medrol) injection 40 mg (CANCELED) 40 mg, intravenous, Every 12 hours scheduled, First dose on 08/05/24 at 0900, Reconstitute each 40 mg vial with 1 mL sterile water for injection to a concentration of 40 mg/mL. 0845 (Given - Provider: Marry Arshad RN)2132 (Given - Provider: Patrice Liang RN) 0837 (Given - Provider: Ghada Almaraz, JOLANTA)2030 (Given - Provider: Kika Morales RN) 823 (Given - Provider: Yessica Kohler, JOLANTA) oseltamivir (TAMIFLU) capsule 75 mg 75 mg, oral, Once, On Wed08/04/24 at 2200, For 1 dose, Indication: Influenza oseltamivir (TAMIFLU) capsule 75 mg 75 mg, oral, 2 times daily, First dose (after last modification) on Wed08/05/24 at 0900, For 9 doses, Indication: Influenza 0845 (Given - Provider: Marry Arshad RN)2132 (Given - Provider: Patrice Liang RN) 0835 (Given - Provider: Ghada Almaraz RN)2031 (Given - Provider: Kika Morales RN) 08 (Given - Provider: Yessica Kohler RN) pantoprazole (PROTONIX) EC tablet 40 mg 40 mg, oral, Every morning before breakfast, First dose on Wed08/05/24 at 0700, Do not crush, chew, or split. 0844 (Given - Provider: Marry Arshad RN - Comment: patient care) 0634 (Given - Provider: Patrice Liang RN) 0616 (Given - Provider: Kika Morales RN) predniSONE (DELTASONE) tablet 60 mg 60 mg, oral, Daily with breakfast, First dose on Wed08/08/24 at 0800 roflumilast (DALIRESP) tablet 500 mcg 500 mcg, oral, Daily, First dose on Wed08/05/24 at 0900 0933 (Given - Provider: Marry Arshad RN) 0946 (Given - Provider: Ghada Almaraz RN) 0824 (Given - Provider: Yessica Kohler, JOLANTA) sodium chloride 0.9 % flush 10 mL(Linked Group 1) 10 mL, intravenous, 2 times daily, First dose on Wed08/04/24 at 2221 0846 (Given - Provider: Marry Arshad RN)2135 (Given - Provider: Patrice Liang RN) 0946 (Given - Provider: Ghada Almaraz RN)2031 (Given - Provider: Kika Morales, JOLANTA) 0824 (Given - Provider: Yessica Kohler, JOLANTA) Continuous Medication Order 08/05/2024 08/06/2024 08/07/2024 lactated Ringer's infusion () 100 mL/hr, intravenous, Continuous, Starting on Wed08/04/24 at 2221, For 10 hours 0120 (Rate/Dose Verify - Provider: Christina Carlson RN)0337 (Rate/Dose Verify - Provider: Christina Carlson RN)0627 (Rate/Dose Verify - Provider: Christina Carlson, RN)0937 (Rate/Dose Verify - Provider: Patti Mcknight, JOLANTA)0938 (Stopped - Provider: Patti Mcknight RN) PRN Medication Order 08/05/2024 08/06/2024 08/07/2024 acetaminophen (TYLENOL) tablet 650 mg 650 mg, oral, Every 4 hours PRN, mild pain, headaches, fever - temperature GREATER than 38 C (100.4 F), Starting on Wed08/04/24 at 2220 albuterol 2.5 mg /3 mL (0.083 %) nebulizer solution 2.5 mg 2.5 mg, nebulization, Every 4 hours PRN, wheezing, shortness of breath, Starting on Wed08/04/24 at 2220 morphine 2 mg/mL injection 2 mg 2 mg, intravenous, Every 4 hours PRN, moderate pain, Starting on Wed08/04/24 at 2220, FIRST CHOICE MEDICATION FOR MODERATE PAIN (4-6) IF INEFFECTIVE AFTER 30 MIN, PROCEED TO SECOND CHOICE MEDICATION ondansetron (PF) (ZOFRAN) injection 4 mg(Linked Group 2) 4 mg, intravenous, Every 8 hours PRN, vomiting, nausea, Starting on Wed08/04/24 at 2220, -ONLY give IV if patient is unable to take orally. -If inadequate response within 30 minutes, proceed to next-line agent or contact provider if no further options ordered. ondansetron ODT (ZOFRAN-ODT) disintegrating tablet 4 mg(Linked Group 2) 4 mg, oral, Every 8 hours PRN, vomiting, nausea, Starting on Wed08/04/24 at 2220, -Give IV if patient is unable to take orally. -If inadequate response within 30 minutes, proceed to next-line agent or contact provider if no further options ordered. For ODT tablets: -Do not remove from blister pack until just before administering. -Patient should allow tablet to dissolve on tongue. prochlorperazine (COMPAZINE) injection 10 mg(Linked Group 3) 10 mg, intravenous, Every 6 hours PRN, nausea, vomiting, Starting on Wed08/04/24 at 2220, 2nd Line Option: -ONLY give IV if patient is unable to take orally. -Give IM if patient does not have IV Access -If inadequate response within 30 minutes, proceed to next-line agent or contact provider if no further options ordered. prochlorperazine (COMPAZINE) suppository 25 mg(Linked Group 3) 25 mg, rectal, Every 12 hours PRN, nausea, vomiting, Starting on Wed08/04/24 at 2220, 2nd Line Option: -ONLY give RI if patient is unable to take orally and cannot receive IV/IM. -If inadequate response within 30 minutes, proceed to next-line agent or contact provider if no further options ordered. prochlorperazine (COMPAZINE) tablet 10 mg(Linked Group 3) 10 mg, oral, Every 6 hours PRN, nausea, vomiting, Starting on Wed08/04/24 at 2220, 2nd Line Option: -Give IV or IM if patient is unable to take orally. -If inadequate response within 30 minutes, proceed to next-line agent or contact provider if no further options ordered. sodium chloride 0.9 % flush 10 mL(Linked Group 1) 10 mL, intravenous, As needed, line care, Starting on Wed08/04/24 at 2220 Linked Groups Order Group 1: Insert peripheral IV (COMPLETED) STAT, Once, On Wed08/04/24 at 2221, For 1 occurrence And Maintain IV access (CANCELED) Until discontinued, Starting on Wed08/04/24 at 2221, Until Specified And Saline lock IV (COMPLETED) Routine, Once, On Wed08/04/24 at 2221, For 1 occurrence And sodium chloride 0.9 % flush 10 mLJump to med 10 mL, intravenous, 2 times daily, First dose on Wed08/04/24 at 2221 And sodium chloride 0.9 % flush 10 mLJump to med 10 mL, intravenous, As needed, line care, Starting on Wed08/04/24 at 2220 Group 2: ondansetron ODT (ZOFRAN-ODT) disintegrating tablet 4 mgJump to med 4 mg, oral, Every 8 hours PRN, vomiting, nausea, Starting on Wed08/04/24 at 2220, -Give IV if patient is unable to take orally. -If inadequate response within 30 minutes, proceed to next-line agent or contact provider if no further options ordered. For ODT tablets: -Do not remove from blister pack until just before administering. -Patient should allow tablet to dissolve on tongue. Or ondansetron (PF) (ZOFRAN) injection 4 mgJump to med 4 mg, intravenous, Every 8 hours PRN, vomiting, nausea, Starting on Wed08/04/24 at 2220, -ONLY give IV if patient is unable to take orally. -If inadequate response within 30 minutes, proceed to next-line agent or contact provider if no further options ordered. Group 3: prochlorperazine (COMPAZINE) tablet 10 mgJump to med 10 mg, oral, Every 6 hours PRN, nausea, vomiting, Starting on Wed08/04/24 at 2220, 2nd Line Option: -Give IV or IM if patient is unable to take orally. -If inadequate response within 30 minutes, proceed to next-line agent or contact provider if no further options ordered. Or prochlorperazine (COMPAZINE) injection 10 mgJump to med 10 mg, intravenous, Every 6 hours PRN, nausea, vomiting, Starting on Wed08/04/24 at 2220, 2nd Line Option: -ONLY give IV if patient is unable to take orally. -Give IM if patient does not have IV Access -If inadequate response within 30 minutes, proceed to next-line agent or contact provider if no further options ordered. Or prochlorperazine (COMPAZINE) suppository 25 mgJump to med 25 mg, rectal, Every 12 hours PRN, nausea, vomiting, Starting on Wed08/04/24 at 2220, 2nd Line Option: -ONLY give RI if patient is unable to take orally and cannot receive IV/IM. -If inadequate response within 30 minutes, proceed to next-line agent or contact provider if no further options ordered. documented in this encounter Orders Medications Ordered That Frandy ht Not Have Been Administered Count Last Ordered Date First Ordered Date predniSONE (DELTASONE) tablet 60 mg 1 08/07 enoxaparin (LOVENOX) injection 40 mg 1 07/2024 acetaminophen (TYLENOL) tablet 650 mg 1 albuterol 2.5 mg /3 mL (0.08 3 %) nebulizer solution 2.5 mg 1 08/04/2024 morphine 2 mg/mL injection 2 mg 1 ondansetron (PF) (ZOFRAN) injection 4 mg 1 08/04/2024 ondansetron ODT (ZOFRAN-ODT) disintegrating tablet 4 mg 1 08/04/2024 oseltamivir (TAMIFLU) capsule 75 mg 1 08/04 prochlorperazine (COMPAZINE) injection 10 mg 1 08/04/2024 prochlorperazine (COMPAZINE) suppository 25 mg 1 08/04/2024 prochlorperazine (COMPAZINE) tablet 10 mg 1 08/04/2024 sodium chloride 0.9 % flush 10 mL 1 025 General Supply Count Last Ordered Date First Or dered Date OXYGEN THERAPY 1 08/07/2024 Isolation Count Last Ordered Date First Orde red Date INITIATE DROPLET ISOLATION 1 08/04/2024 Respiratory Care Count Last Ordered Date First Ordered Date PEP THERAPY 3 08/06/2024 08/04/2024 OXYGEN THERAPY, ADULT 2 08/04/2024 IV Count Last Ordered Date First Orde red Date INSERT PERIPHERAL IV 1 08/04/2024 SALINE LOCK IV 1 08/04/2024 Admission Count Last Ordered Date First Orde red Date ADMIT TO INPATIENT 1 08/04/2024 Transfer Count Last Ordered Date First Orde red Date TRANSFER PATIENT TO NEW UNIT 1 08/06/2024 ED TO FLOOR BED REQUEST 1 08/04/2024 Discharge Count Last Ordered Date First Orde red Date DISCHARGE PATIENT 1 08/07/2024 documented in this encounter Additional Health Concerns Infection Onset Date Last Indicated Resolved Time Respiratory Rule-Out 08/04/2024 08/04/2024 025 9:20 PM EST COVID-19 Rule-Out 08/04/2024 08/04/2024 08/04/2024 9:20 PM EST Influenza 08/04/2024 08/04/2024 documented as of this encounter 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
--- OUTSIDE RECORDS SUMMARY | 2024-08-17 13:40 | XMS_ITS | Clinical Summary ---
Author Organization [facility] Address [address] [place] [address] Phone Care Team Providers Care Public Speaking Instructor Name Role Phone Sanju Disla MD Primary Care Provider Allergies No known active allergies Medications albuterol 2.5 mg /3 mL (0.083 %) nebulizer solution Inhale 3 mL (2.5 mg total) by mouth. 07/15/19 12 Active aspirin 81 mg EC tablet Take 1 tablet (81 mg total) by mouth 1 (one) time each day. Active atorvastatin (LIPITOR) 80 mg tablet Take 1 tablet (80 mg total) by mouth 1 (one) time each day. Active pantoprazole (PROTONIX) 40 mg EC tablet TAKE 1 TABLET ORALLY DAILY TAKE EVERY MORNING 30 MINUTES BEFORE BREAKFAST Active nitroglycerin (NITROSTAT) 0.4 mg SL tablet TAKE 1 TABLET SUBLINGUALLY EVERY 5 MINUTES MAX 3 DOSES Active Trelegy Ellipta 200-62.5-25 mcg inhaler 03/17/20 24 Active isosorbide mononitrate (IMDUR) 30 mg 24 hr tablet Take 1 tablet (30 mg total) by mouth 1 (one) time each day. Active allopurinoL (ZYLOPRIM) 100 mg tablet Take 1 tablet (100 mg total) by mouth 1 (one) time each day. 03/03/20 24 Active roflumilast (DALIRESP) 500 mcg tablet Take 1 tablet (500 mcg total) by mouth 1 (one) time each day. 04/27/20 24 Active potassium citrate (UROCIT-K) 10 mEq (1,080 mg) CR tablet Take 2 tablets (20 mEq total) by mouth 2 (two) times a day with meals. 03/03/20 24 Active losartan (COZAAR) 100 mg tablet Take 1 tablet (100 mg total) by mouth 1 (one) time each day. Active fluticasone propionate (FLONASE) 50 mcg/actuation nasal spray Administer 1 spray into each nostril 1 (one) time each day. 04/10/20 24 Active bisacodyL (DULCOLAX) 5 mg EC tablet Take 2 tablets (10 mg total) by mouth at bedtime. at bedtime 04/19/20 24 Active Oxygen Therapy (O2) gas 2 L/min continuously if needed. Active medical supply, miscellaneous (MISCELLANEOUS MEDICAL SUPPLY MISC) Spacer/Aero-Hold ing Chambers (AEROCHAMBER MV) Misc 1 Device by Does not apply route as needed (wheezing). 06/23/20 18 Active cholecalciferol (VITAMIN D-3) 50 mcg (2,000 unit) tablet Take 1 tablet (2,000 Units total) by mouth 1 (one) time each day. Take by mouth. - Oral Active albuterol HFA (PROAIR HFA ; PROVENTIL HFA ; VENTOLIN HFA) 90 mcg/actuation inhaler USE 2 INHALATIONS ORALLY EVERY 4 HOURS NEEDED FORSHORTNESS OF BREATH OR WHEEZING 18 g 6 06/06/20 24 Active cyanocobalamin (VITAMIN B-12) 1,000 mcg tablet Take 1 tablet (1,000 mcg total) by mouth 1 (one) time each day. Active oseltamivir (TAMIFLU) 75 mg capsule Take 1 capsule (75 mg total) by mouth 2 (two) times a day for 4 doses. 4 each 08/07/19 25 025 predniSONE (DELTASONE) 10 mg tablet Take 1 tablet (10 mg total) by mouth 4 (four) times a day for 5 days. 20 each 08/07/19 25 025 Active Problems Problem Noted Date Diagnosed Date Coronary artery disease invo lving [place] coronary artery of [place] heart without angina pectoris 07/11/2024 Assessment & Plan (07/11/2024 1:33 PM EST): Patient has a history of coronary artery disease. Recent hospitalization with left heart catheterization showing mild diffuse disease less than 30% in the LAD, minimal luminal regularities in left main and normal left circumflex. Moderate diffuse disease in the RCA with known chronic total occlusion of distal RCA. Overall , no significant changes in coronary anatomy from 2020. On today's visit, he denies any exertional anginal symptoms. He has been feeling well from a cardiac standpoint. He continues on medical therapy with aspirin, statin and isosorbide mononitrate. At this point, we will continue current therapies. Orders: ECG 12 lead Primary hypertension 07/11/2024 Assessment & Plan (07/11/2024 1:33 PM EST): BP well controlled. He will continue his current medication regimen as prescribed. Arthritis 05/26/2024 Acute on chronic hypoxic respiratory failure 05/2024 COPD exacerbation 05/14/2024 Inclusion cyst 05/08/2019 Lymphadenopathy 11/18/2017 Overview (05/26/2024): 1.[address] Cholelithiasis 08/10/2017 Diverticulosis 08/10/2017 Hyperlipidemia 08/10/2017 Assessment & Plan (07/11/2024 1:33 PM EST): Patient has a history of hyperlipidemia as well as a history of coronary artery disease. Will update a new fasting lipid panel to reassess his lipid control and make any adjustments as necessary. His goal DL should ideally be less than 70 given his history. He will continue his current dose of atorvastatin as prescribed. I have reviewed with the patient the importance of a heart healthy lifestyle which includes eating a low-fat low-salt diet, getting regular exercise, maintaining a healthy weight, not smoking, and following up with routine medical care. Orders: Lipid panel; Future Supplemental oxygen dependent 08/10/2017 Chronic obstructive pulmonary disease (COPD) 04/2017 Resolved Problems Problem Noted Date Diagnosed Date Resolved Date Chest pain 07/03/2024 07/11/2024 Encounters Date Type Department Care Team Description 08/04/2024 7:50 PM EST - 08/07/2024 4:08 PM EST Hospital Encounter [facility] [address] [place] [id number] Eric Norris MD Rasul, Yar M, MD Surendran, Anupama, MD COPD exacerbation ([facility]) (Primary Dx); Influenza A; Chronic obstructive pulmonary disease with acute exacerbation ([facility]) Discharge Disposition: Home or Self Care 07/11/2024 12:40 PM EST Office Visit [facility] Cardiology [facility] [address] [place] [address] Winifred Abebe NP Coronary artery disease involving [place] coronary artery of [place] heart without angina pectoris (Primary Dx); Mixed hyperlipidemia; Primary hypertension 06/08/2024 Telephone [facility] [address] [place] [phone] Josias Rayo MA 06/08/2024 Telephone [facility] [address] [phone] Jayshree Gibbs MD Durable Medical Equipment 05/26/2024 Telephone [facility] [address] [phone] Chanda Morales [place] DME request (Oxygen therapy signed written order faxed to [facility]. Fax confirmation received.//) 05/19/2024 Telephone [facility] [address] [place] [address] Winifred Abebe NP 05/18/2024 Telephone [facility] [address] [phone] Jayshree Gibbs MD Fitting for DME 05/14/2024 6:04 PM EST - 05/18/2024 4:35 PM EST Hospital Encounter [facility] [address] [place] [phone] Andrew Hutson MD Jones, Christopher, MD Mohani, Priya, MD Chest pain, unspecified type (Primary Dx); COPD with acute exacerbation ([facility]); COPD exacerbation ([facility]); Acute on chronic hypoxic respiratory failure ([facility]) Discharge Disposition: Short Term Hospital from Last 3 Months Immunizations Name Administration Dates Next Due Influenza Quadravalent, MDCK , 0.5ml, preservative free (Flucelvax) 6mo and older 04/28/2022 Surgical History Surgery Date Site/Laterality Comments KNEE SURGERY PROCEDURE: HISTORICAL KNEE SURGERY DENTAL SURGERY PROCEDURE: LA UNLISTED PROCEDURE DENTOALVEOLAR STRUCTURES Medical History Medical History Date Comments Arthritis DX:Arthritis Cholelithiasis 08/10/2017 DX:Cholelithiasi s Diverticulosis 08/10/2017 DX:Diverticulosi s Hyperlipidemia 08/10/2017 DX:Hyperlipidemi a Tobacco use 02/11/2017 DX:Tobacco use Chronic obstructive pulmonar y disease (COPD) ([facility]) 02/11/2017 DX:Chronic obstructive pulmo nary disease (COPD) ([facility]) Supplemental oxygen dependent 08/10/2017 DX :Supplemental oxygen dependent Lymphadenopathy 11/18/2017 DX:Lymphadenopat hy; COMMENT: 1.[address] Asthma DX:Asthma Pneumonia DX:Pneumonia Essential hypertension DX:Essent ial hypertension Family History Relation Name Status Comments Father Mother Social History Tobacco Use Types Packs/Day Years Used Date Smoking Tobacco: Former Cigarettes 0.5 54.1 S tarted: 07/05/1970 Smokeless Tobacco: Never Quit: 02/02/2018 Tobacco Cessation:Counseling Given: Not Answered Comments:0.5 pack daily Alcohol Use Standard Drinks/Week [...] Orientation Straight 05/16/2024 12 :44 AM EST Obstetrics History Last Filed Vital Signs Vital Sign Reading [...] Mass Index 33.11 08/04/2024 9:57 PM EST Plan of Treatment Upcoming Encounters Date Type Department Care Team (Late st Contact Info) Description 09/06/2024 2:15 PM EST Office Visit [facility] [address] [facility] [address] [place] [phone] Jayshree Gibbs MD [address] [facility] [address] [place] [address] Health Maintenance Due Date Last Done Comments Diabetes: Annual Foot Exam 01/12/1968 Diabetes: Annual Retina Eye Exam 01/12/1968 Hepatitis A Vaccines (1 of 2 - Risk 2-dose series) 1977 Pneumococcal Vaccine: 50+ Years (2 of 2 - PCV) 06/09/2018 06/09/2017, 11/16/2015 Abdominal Aortic Aneurysm (AAA) Screen 06/13/2022 Cholesterol Screening (Lipid Panel) 06/13/2022 Colorectal Cancer Screening: Colonoscopy 06/13/2022 Depression Screening 06/13/2022 Hepatitis C Screening 06/13/2022 Medicare Annual Wellness Visit 06/13/2022 Social Influencers of Health Screening 06/13/2022 COVID-19 Vaccine ( season) 2024 07/14/2021, 11/16/2020, 10/19/2020 Diabetes: Annual Urine Albumin-Creatinine Ratio (uACR) 07/11/2024 Diabetes: Blood Sugar Control Test (HGBA1C) 07/11/2024 Diabetes: Annual GFR (Glomerular Filtration Rate) 08/07/2025 08/07/2024, 08/06/2024, 08/05/2024, Additional history exists Falls Risk Assessment 08/07/2025 08/07/2024 Hypertension/CHF/CAD Annual BMP Blood Test 08/07/2025 08/07/2024, 08/06/2024, 08/05/2024, Additional history exists DTaP,Tdap,and Td Vaccines (2 - Td or Tdap) 05/04/2026 05/04/2016 Zoster Vaccines Completed 04/09/2020, 09/01/2019 Lung Cancer Screening (Low Dose CT) Discontinued 06/29/2023, 06/05/2022, 05/01/2021 Influenza Vaccine Completed 03/21/2024, , 04/28/2022, Additional history exists RSV Immunization Patients 60+ Years Old Completed 05/31/2024 HIB Vaccines Aged Out No longer eligi ble based on patient's age to complete this topic HPV Vaccines Aged Out No longer eligi ble based on patient's age to complete this topic Hepatitis B Vaccines Aged Out No long er eligible based on patient's age to complete this topic IPV Vaccines Aged Out No longer eligi ble based on patient's age to complete this topic MMR Vaccines Aged Out No longer eligi ble based on patient's age to complete this topic Meningococcal ACWY Vaccine Aged Out N o longer eligible based on patient's age to complete this topic Meningococcal B Vacine Aged Out No lo nger eligible based on patient's age to complete this topic RSV Immunization Patients Under 20 months Aged Out No longer eligible based on patient's age to complete this topic Varicella Vaccines Aged Out No longer eligible based on patient's age to complete this topic Procedures Procedure Name Priority Date/Time Associated Diagnosis Comments CBC WITH AUTO DIFFERENTIAL Timed 08/07/2024 6:15 AM EST BASIC METABOLIC PANEL Timed 08/07/2024 6:15 AM EST CBC AND DIFFERENTIAL Timed 08/07/2024 6:15 AM EST PEP THERAPY Routine 08/06/2024 6:00 AM EST BASIC METABOLIC PANEL Routine 08/06/2024 5:43 AM EST COMPLETE BLOOD COUNT Routine 08/06/2024 5:43 AM EST PEP THERAPY Routine 08/05/2024 6:01 AM EST LT GREEN - LI HEPARIN Routine 08/05/2024 5:48 AM EST EXTRA TUBES Routine 08/05/2024 5:48 AM EST GREEN - NA HEPARIN Routine 08/05/2024 5: 48 AM EST EXTRA TUBES Routine 08/05/2024 5:48 AM EST CBC WITH AUTO DIFFERENTIAL Routine 08/05/2024 5:48 AM EST MAGNESIUM Routine 08/05/2024 5:48 AM EST VENOUS BLOOD GAS Routine 08/05/2024 5:48 AM EST CBC AND DIFFERENTIAL Routine 08/05/2024 5:48 AM EST BASIC METABOLIC PANEL Routine 08/05/2024 5:48 AM EST PEP THERAPY Routine 08/04/2024 10:20 PM EST XR CHEST 1 VIEW STAT 08/04/2024 8:33 PM EST ECG 12-LEAD STAT 08/04/2024 8:33 PM EST PROCALCITONIN STAT Add-on 08/04/2024 8:12 PM EST COMPLETE BLOOD COUNT STAT 08/04/2024 8:12 PM EST BASIC METABOLIC PANEL STAT 08/04/2024 8:12 PM EST RESPIRATORY VIRUS PANEL MOLECULAR STUDY STAT 08/04/2024 8:12 PM EST OXYGEN THERAPY, ADULT Routine 08/04/2024 8:01 PM EST OXYGEN THERAPY, ADULT Routine 08/04/2024 8:01 PM EST LA CRITICAL CARE EACH ADDITIONAL 30 MINUTES Routine 08/04/2024 7:45 PM EST LA CRITICAL CARE EACH ADDITIONAL 30 MINUTES Routine 08/04/2024 7:45 PM EST ECG ANNOTATED 08/04/2024 ECG 12-LEAD Routine 07/11/2024 1:34 PM EST Coronary artery disease involving [place] coronary artery of [place] heart without angina pectoris NM DOBUTAMINE STRESS TEST W/ MYOCARDIAL PERFUSION Routine 05/18/2024 11:55 AM EST Chest pain, unspecified type CBC WITH AUTO DIFFERENTIAL Routine 05/18/2024 5:20 AM EST BASIC METABOLIC PANEL Routine 05/18/2024 5:20 AM EST CBC AND DIFFERENTIAL Routine 05/18/2024 5:20 AM EST CBC WITH AUTO DIFFERENTIAL Routine 05/17/2024 5:28 AM EST MAGNESIUM Routine 05/17/2024 5:28 AM EST BASIC METABOLIC PANEL Routine 05/17/2024 5:28 AM EST CBC AND DIFFERENTIAL Routine 05/17/2024 5:[address] LUNG SCREENING LOW DOSE Routine 06/29/2023 6:57 AM EST Encounter for screening for malignant neoplasm of respiratory organs from Last 3 Months or Most Recently Relevant to Health Maintenance Results * (ABNORMAL) CBC auto differential (08/07/2024 6:15 AM EST) Only the most recent of4 resultswithin the time period is included. WBC 7.5 4.8 - 10.8 K/mcL LAB HEMETOLOGY METHOD 08/07/2024 8:32 AM EST [facility] RBC 4.40(L) 4.50 - 5.50 M/[facility] LAB HEMETOLOGY METHOD 08/07/2024 8:32 AM [facility] Hemoglobin 13.4(L) 13.5 - 17.5 g/dL LAB HEMETOLOGY METHOD 08/07/2024 8:32 AM [facility] Hematocrit 40.6(L) 42.0 - 54.0 % LAB HEMETOLOGY METHOD 08/07/2024 8:32 AM [facility] MCV 92.5 79.0 - 98.0 FL LAB HEMETOLOGY METHOD 08/07/2024 8:32 AM [facility] MCH 30.5 27.0 - 32.0 pcg LAB HEMETOLOGY METHOD 08/07/2024 8:32 AM [facility] MCHC 33.0 32.0 - 37.0 g/dL LAB HEMETOLOGY METHOD 08/07/2024 8:32 AM [facility] RDW 12.5 11.0 - 15.0 % LAB HEMETOLOGY METHOD 08/07/2024 8:32 AM [facility] Platelets 232 130 - 400 K/mcL LAB HEMETOLOGY METHOD 08/07/2024 8:32 AM [facility] MPV 9.4 7.0 - 11.0 FL LAB HEMETOLOGY METHOD 08/07/2024 8:32 AM [facility] NRBC 0.0 <1.0 % LAB HEMETOLOGY METHOD 08/07/2024 8:32 AM [facility] NRBC Absolute 0.00 <0.10 K/mcL LAB HEMETOLOGY METHOD 08/07/2024 8:32 AM [facility] Neutrophils Relative 80.6 % LAB HEMETOLOGY METHOD 08/07/2024 8:32 AM [facility] Comment:This is an appended report. These results have been appended to a previously preliminary verified report. Lymphocytes Relative 11.8 % LAB HEMETOLOGY METHOD 08/07/2024 8:32 AM [facility] Comment:This is an appended report. These results have been appended to a previously preliminary verified report. Monocytes Relative 7.2 % LAB HEMETOLOGY METHOD 08/07/2024 8:32 AM [facility] Comment:This is an appended report. These results have been appended to a previously preliminary verified report. Eosinophils Relative 0.0 % LAB HEMETOLOGY METHOD 08/07/2024 8:32 AM [facility] Comment:This is an appended report. These results have been appended to a previously preliminary verified report. Basophils Relative 0.0 % LAB HEMETOLOGY METHOD 08/07/2024 8:32 AM [facility] Comment:This is an appended report. These results have been appended to a previously preliminary verified report. Immature Granulocytes Relative 0.4 % LAB HEMETOLOGY METHOD 08/07/2024 8:32 AM [facility] Comment:This is an appended report. These results have been appended to a previously preliminary verified report. Neutrophils Absolute 6.00 1.50 - 7.00 K/mcL LAB HEMETOLOGY METHOD 08/07/2024 8:32 AM [facility] Comment:This is an appended report. These results have been appended to a previously preliminary verified report. Lymphocytes Absolute 0.88(L) 1.00 - 5.00 K/mcL LAB HEMETOLOGY METHOD 08/07/2024 8:32 AM [facility] Comment:This is an appended report. These results have been appended to a previously preliminary verified report. Monocytes Absolute 0.54 0.20 - 1.00 K/mcL LAB HEMETOLOGY METHOD 08/07/2024 8:32 AM [facility] Comment:This is an appended report. These results have been appended to a previously preliminary verified report. Eosinophils Absolute 0.00 0.00 - 0.50 K/mcL LAB HEMETOLOGY METHOD 08/07/2024 8:32 AM [facility] Comment:This is an appended report. These results have been appended to a previously preliminary verified report. Basophils Absolute 0.00 0.00 - 0.20 K/mcL [facility] 08/07/2024 8:32 AM EST [facility] Comment:This is an appended report. These results have been appended to a previously preliminary verified report. Immature Granulocytes Absolute 0.03 0.00 - 0.03 K/mcL LAB [facility] 08/07/2024 8:32 AM EST [facility] Comment:This is an appended report. These results have been appended to a previously preliminary verified report. Blood Venous blood specimen / Unknown Venipuncture / Unknown 08/07/2024 6:15 AM EST 08/07/2024 7:04 AM EST us Bill Cervantes MD LAB BLOOD ORDERABLES Final Resul t [facility] [address] [place] [address], [place] [phone] * (ABNORMAL) Basic metabolic panel (08/07/2024 6:15 AM EST) Only the most recent of6 resultswithin the time period is included. Sodium 137 133 - 145 mmol/L LAB CHEMISTRY METHOD 08/07/2024 7:53 AM [facility] Potassium 4.7 3.5 - 5.5 mmol/L LAB CHEMISTRY METHOD 08/07/2024 7:53 AM [facility] Chloride 103 96 - 110 mmol/L LAB CHEMISTRY METHOD 08/07/2024 7:53 AM [facility] CO2 31 21 - 32 mmol/L LAB CHEMISTRY METHOD 08/07/2024 7:53 AM [facility] Anion Gap 3 3 - 11 LAB CHEMISTRY METHOD 08/07/2024 7:53 AM [facility] Glucose 101(H) 70 - 100 mg/dL LAB CHEMISTRY METHOD 08/07/2024 7:53 AM [facility] BUN 23 5 - 25 mg/dL LAB CHEMISTRY METHOD 08/07/2024 7:53 AM [facility] Creatinine 0.99 0.70 - 1.30 mg/dL LAB CHEMISTRY METHOD 08/07/2024 7:53 AM [facility] eGFR 84 >=60 mL/min/1. 73m2 LAB CHEMISTRY METHOD 08/07/2024 7:53 AM [facility] Comment:Calculation based on the??Chronic Kidney Disease Epidemiology Collaboration (CKD-EPI) equation refit??without adjustment for race. BUN/Creatinine Ratio 23.2 LAB CHEMISTRY METHOD 08/07/2024 7:53 AM [facility] Calcium 9.2 8.5 - 10.5 mg/dL LAB CHEMISTRY METHOD 08/07/2024 7:53 AM [facility] Blood Venous blood specimen / Unknown Venipuncture / Unknown 08/07/2024 6:15 AM EST 08/07/2024 7:04 AM EST us Bill Cervantes MD LAB BLOOD ORDERABLES Final Resul t [facility] [address] [place] [address], * (ABNORMAL) Complete blood count (08/06/2024 5:43 AM EST) Only the most recent of2 resultswithin the time period is included. WBC 7.8 4.8 - 10.8 K/mcL LAB HEMETOLOGY METHOD 08/06/2024 7:17 AM [facility] RBC 4.40(L) 4.50 - 5.50 M/mcL LAB HEMETOLOGY METHOD 08/06/2024 7:17 AM [facility] Hemoglobin 13.8 13.5 - 17.5 g/dL LAB HEMETOLOGY METHOD 08/06/2024 7:17 AM [facility] Hematocrit 42.1 42.0 - 54.0 % LAB HEMETOLOGY METHOD 08/06/2024 7:17 AM [facility] MCV 95.0 79.0 - 98.0 FL LAB HEMETOLOGY METHOD 08/06/2024 7:17 AM [facility] MCH 31.2 27.0 - 32.0 pcg LAB HEMETOLOGY METHOD 08/06/2024 7:17 AM [facility] MCHC 32.8 32.0 - 37.0 g/dL LAB HEMETOLOGY METHOD 08/06/2024 7:17 AM [facility] RDW 12.8 11.0 - 15.0 % LAB HEMETOLOGY METHOD 08/06/2024 7:17 AM [facility] Platelets 233 130 - 400 K/mcL LAB HEMETOLOGY METHOD 08/06/2024 7:17 AM [facility] MPV 9.4 7.0 - 11.0 FL LAB HEMETOLOGY METHOD 08/06/2024 7:17 AM [facility] NRBC 0.0 <1.0 % LAB HEMETOLOGY METHOD 08/06/2024 7:17 AM [facility] NRBC Absolute 0.00 <0.10 K/mcL LAB HEMETOLOGY METHOD 08/06/2024 7:17 AM [facility] Blood Venous blood specimen / Unknown Venipuncture / Unknown 08/06/2024 5:43 AM EST 08/06/2024 6:50 AM EST us Kanika HARRISON LAB BLOOD ORDERABLES Final Resul t [facility] [address] [place] [address], * Green LI heparin tube (08/05/2024 5:48 AM EST) Extra Tube Hold for add-ons. 08/05/2024 8:01 AM EST [facility] Comment:Auto resulted. Blood Venous blood specimen / Unknown Venipuncture / Unknown 08/05/2024 5:48 AM EST 08/05/2024 6:08 AM EST us Eric Norris MD LAB BLOOD ORDERABLES Final Result Performing Organization Address City/[facility]/ZIP Co de Phone Number [facility] [address] [place] [address], [place] [phone] * Green NA heparin tube (08/05/2024 5:48 AM EST) Extra Tube Hold for add-ons. 08/05/2024 8:01 AM EST [facility] Comment:Auto resulted. Blood Venous blood specimen / Unknown 08/05/2024 5:48 AM EST 08/05/2024 6:07 AM EST us Eric Norris MD LAB BLOOD ORDERABLES Final Result Performing Organization Address [facility]/ZIP Co de Phone Number [facility] [address] [place] [address], [place] [phone] * Magnesium (08/05/2024 5:48 AM EST) Only the most recent of2 resultswithin the time period is included. Magnesium 2.5 1.9 - 2.6 mg/dL LAB CHEMISTRY METHOD 08/05/2024 6:39 AM EST [facility] Blood Venous blood specimen / Unknown Venipuncture / Unknown 08/05/2024 5:48 AM EST 08/05/2024 6:04 AM EST us Eric Norris MD LAB BLOOD ORDERABLES Final Result [facility] [address] [place] [address], * (ABNORMAL) Venous blood gas (08/05/2024 5:48 AM EST) pH, Donnell 7.27(L) 7.32 - 7.42 pH 08/05/2024 6:15 AM EST [facility] pCO2, Donnell 55(H) 41 - 51 mmHg 08/05/2024 6:15 AM EST [facility] pO2, Donnell 65(H) 25 - 40 mmHg 08/05/2024 6:15 AM [facility] HCO3, Venous 22.8 22.0 - 26.0 mmol/L 08/05/2024 6:15 AM [facility] O2 Sat, Donnell 92.8 % 08/05/2024 6:15 AM EST [facility] Base Excess, Donnell -2.5(L) -2.0 - 2.0 mmol/L 08/05/2024 6:15 AM EST [facility] Blood Venous blood specimen / Unknown Venipuncture / Unknown 08/05/2024 5:48 AM EST 08/05/2024 6:03 AM EST Eric Norris MD LAB BLOOD ORDERABLES Final Result Performing Organization Address [facility] Co de Phone Number [facility] [address] [place] [address], * XR Chest 1 View (08/04/2024 8:33 [...] Signed Date: 08/05/2024 08:23 ET Workstation ID: [id number] Transcribed By: Self Edit Transcribed Date: 08/05/2024 [...] Signed Date: 08/05/2024 08:23 ET Workstation ID: [id number] Transcribed By: Self Edit Transcribed Date: 08/05/2024 08:21 ET us Eric Norris MD IMG XR PROCEDURES Final Res ult * 12-Lead ECG (08/04/2024 8:33 PM EST) Only the most recent of2 resultswithin the time period is included. Ventricular Rate ECG 115 BPM GEMUSE Atrial Rate 115 BPM GEMUSE P-R Interval 138 ms GEMUSE QRS Duration 128 ms GEMUSE Q-T Interval 336 ms GEMUSE QTc 464 ms GEMUSE P Wave [place] 82 degrees GEMUSE R [place] 79 degrees GEMUSE T [place] 60 degrees GEMUSE ECG Interpretation Poor data quality, interpretation may be adversely affected Sinus tachycardia Right bundle branch block Abnormal ECG When compared with ECG of 11-JUL-2024 13:06, No significant change was found Confirmed by SILVER HAN ([id number]) on 08/06/2024 2:23:25 PM GEMUSE 08/04/2024 8:33 PM EST 08/06/2024 2:23 PM EST González HARRISON ECG ORDERABLES Final Result GEMUSE * (ABNORMAL) Respiratory virus panel molecular study (08/04/2024 8:12 PM EST) Adenovirus Detection by PCR Not Detected Not Detected LAB MICROBIOLOGY METHOD 08/04/2024 9:20 PM [facility] Influenza B PCR Not Detected Not Detected LAB MICROBIOLOGY METHOD 08/04/2024 9:20 PM [facility] Coronavirus 229E Not Detected Not Detected LAB MICROBIOLOGY METHOD 08/04/2024 9:20 PM [facility] Coronavirus HKU1 Not Detected Not Detected LAB MICROBIOLOGY METHOD 08/04/2024 9:20 PM [facility] Coronavirus OC43 Not Detected Not Detected LAB MICROBIOLOGY METHOD 08/04/2024 9:20 PM [facility] Coronavirus NL63 Not Detected Not Detected LAB MICROBIOLOGY METHOD 08/04/2024 9:20 PM [facility] Parainfluenza Virus 1 Not Detected Not Detected LAB MICROBIOLOGY METHOD 08/04/2024 9:20 PM [facility] Parainfluenza Virus 2 Not Detected Not Detected LAB MICROBIOLOGY METHOD 08/04/2024 9:20 PM [facility] Parainfluenza Virus 3 Not Detected Not Detected LAB MICROBIOLOGY METHOD 08/04/2024 9:20 PM [facility] Parainfluenza Virus 4 Not Detected Not Detected LAB MICROBIOLOGY METHOD 08/04/2024 9:20 PM EST [facility] RSV PCR Not Detected Not Detected LAB MICROBIOLOGY METHOD 08/04/2024 9:20 PM [facility] Human Metapneumovirus A and B Not Detected Not Detected LAB MICROBIOLOGY METHOD 08/04/2024 9:20 PM [facility] Rhinovirus/Entero virus Not Detected Not Detected LAB MICROBIOLOGY METHOD 08/04/2024 9:20 PM [facility] Bordetella pertussis Not Detected Not Detected LAB MICROBIOLOGY METHOD 08/04/2024 9:20 PM [facility] Bordetella parapertussis Not Detected Not Detected LAB MICROBIOLOGY METHOD 08/04/2024 9:20 PM [facility] Influenza A H3 Detected(A ) Not Detected LAB MICROBIOLOGY METHOD 08/04/2024 9:20 PM [facility] Mycoplasma pneumo by PCR Not Detected Not Detected LAB MICROBIOLOGY METHOD 08/04/2024 9:20 PM [facility] Chlamydia pneumoniae Not Detected Not Detected LAB MICROBIOLOGY METHOD 08/04/2024 9:20 PM [facility] SARS COV-2 Not Detected Not Detected LAB MICROBIOLOGY METHOD 08/04/2024 9:20 PM [facility] Swab Both anterior nares / Unknown Non-blood Collection / Unknown 08/04/2024 8:12 PM EST 08/04/2024 8:23 PM EST [facility] - 08/04/2024 9:20 PM EST Testing was performed using the [employer] Respiratory Pathogen PCR Assay. All results must [...] MICROBIOLOGY - GENERAL O RDERABLES Final Result Performing Organization Address [facility]/ZIP Co de Phone Number [facility] [address] [place] [address], * Procalcitonin (08/04/2024 8:12 PM EST) Procalcitonin 0.08 <=0.16 ng/mL LAB CHEMISTRY METHOD 08/05/2024 12:23 PM EST [facility] Blood Venous blood specimen / Unknown Venipuncture / Unknown 08/04/2024 8:12 PM EST 08/04/2024 8:23 PM EST Narrative [facility] - 08/05/2024 12:23 PM EST Procalcitonin [...] BLOOD ORDERABLES Final Result Performing Organization Address [facility]/ZIP Co de Phone Number [facility]) [facility] [address] [place] [address], [place] [phone] * LA CRITICAL CARE EACH ADDITIONAL 30 MINUTES, LA CRITICAL CARE EACH ADDITIONAL 30 MINUTES (08/04/2024 [...] ited Result - Final * ECG-Annotated (08/04/2024) us Provider Onbase MD ECG ORDERABLES Final Result * NM DOBUTAMINE STRESS TEST W/ MYOCARDIAL PERFUSION (05/18/2024 11:55 AM EST) Exercise/injec tion duration (min) 4 CV PACS STRESS Exercise/injec tion duration (sec) 51 CV PACS STRESS Peak SBP 146 mmHg CV PACS STRESS Peak DBP 89 mmHg CV PACS STRESS Peak HR 151 bpm CV PACS STRESS Baseline HR 82 bpm CV PACS STRESS Baseline SBP 136 mmHg CV PACS STRESS Baseline DBP 61 mmHg CV PACS STRESS Estimated workload 1.0 METS CV PACS STRESS Percent HR 98 % CV PACS STRESS Rate Pressure Product 22,046.0 mmHg*bpm CV PACS STRESS Target HR 131 bpm CV PACS STRESS Max HR Percent 98 % CV PA CS STRESS TID 0.99 CV PACS STRESS Nuc Stress EF 39 % CV PAC S STRESS Nuc Rest EF 55 % CV PACS STRESS Anatomical Region Laterality Modality Nuclear Medicine 05/18/2024 10:4 2 AM EST 05/18/2024 12:25 PM EST Impressions 05/18/2024 2:29 PM EST 1. ??Positive. ??Positive pharmacological nuclear stress test with dobutamine. 2. Symptoms: The patient has symptoms of chest discomfort with the dobutamine infusion for which he needed the administration of sublingual nitroglycerin. ??His chest pain resolved after the administration of sublingual nitroglycerin. 3. Stress EC mm - 1.[address] segment depressions in the inferior leads, suggestive of ischemia. 4. Myocardial perfusion imaging: -The attenuation corrected myocardial perfusion imaging revealed a small in size and mild intensity reversible perfusion defect in the apical anterior wall and apex. - No evidence of any fixed perfusion defects on the attenuation corrected myocardial perfusion imaging. 5. TID was normal at 0.99. 6. Gated SPECT imaging was performed. There is normal LV regional wall motion at rest. The LVEF at rest was noted to be 55%. The LVEF poststress was noted to be 39%. 7. ??There is evidence of coronary artery calcification in the LAD which was noted on the CT scan images obtained for attenuation correction. Narrative 05/18/2024 2:29 PM EST Stress Findings A pharmacological stress test was performed using dobutamine. Peak infusion dose was 20 mcg/kg/min Total stress time was 4 min and 51 sec. The patient's hemodynamic response was adequate for diagnosis. Blood pressure demonstrated a normal response. Heart rate demonstrated a normal response. Substernal chest burning beginning at about 4 min into dobutamine infusion at a heart rate of 140 bpm. Chest burning persisted into 4 min recovery so a SL NTG 0.4 mg was given and then again 5 min later with resolution of chest burning/chest pain. ECG The ECG shows normal sinus rhythm. Baseline ECG indicates right bundle branch block. Arrhythmias during stress: occasional premature atrial contractions (PACs), rare premature ventricular contractions (PVCs) . 1-1.[address] depression inferior leads that returned to baseline in recovery. The result of the stress ECG was positive for ischemia. Nuclear Study Quality Study technique: MPI, SPECT, multi, rest and stress, 1 day. Overall image quality is good. Diaphragmatic attenuation artifact is present. Patient has a history of chest pain and CAD. Stress Function Comments Left ventricular systolic function post-stress is abnormal. Global function is moderately reduced. Stress ejection fraction is 39%. Rest Function Comments Left ventricular function at rest was normal. Resting ejection fraction was 55%. Stress Combined Conclusion SCAN FINDINGS: Nuclear imaging of the left ventricle reveals normal cavity size at rest with no change with stress imaging. Myocardial perfusion imaging of the left ventricle reveals a medium in size and mild in intensity reversible perfusion defect in the apical anterior wall, apical lateral wall, and apex. There is also evidence of a large in size and moderate in intensity fixed perfusion defect in the mid to apical inferior wall along with an area of reversibility in the basal inferior wall/basal inferoseptal wall. The raw images demonstrated the presence of diaphragmatic attenuation CT attenuation correction was applied to the study which partially corrects the previously mentioned perfusion abnormality. For instance, the previously mentioned perfusion defect in the inferior/inferoseptal wall is completely corrected when attenuation correction was applied which means that it was likely secondary to a diaphragmatic attenuation artifact. However, even after attenuation correction was applied, there is persistence of a small in size and mild intensity reversible perfusion defect in the apical anterior wall and apex suggestive of ischemia. There are no fixed perfusion defects on the attenuation corrected images to suggest the presence of an infarct. Gated SPECT imaging was performed. There is normal regional wall motion at rest. The LVEF at rest was noted to be 55%. The LVEF post-rest was noted to be 39%. Nuclear Prior Study There is no prior study available for comparison. Perfusion Comments LV perfusion is abnormal. us Silver Han MD CV STRESS PROCEDURES F inal Result * CT LUNG SCREENING LOW DOSE (06/29/2023 6:57 AM EST) Anatomical Region Laterality Modality Computed Tomogra phy 06/15/2023 1:42 PM EST Narrative 06/29/2023 6:[address] [facility] Diagnostic Imaging Department [address] [place] [address] Patient: ??ANNA JACKSON ?/Age/Sex: 1960 - 63 - M Unit#: ??[id number] ? Location/Status: ??SPDICATLS/REG CLI ? Mnemonic/Ordering Site: ??CTLUNGLD/SPCT Ordering Physician: ??SHARIF ALY MD CT Lung Screening Low Dose - 06/15/23 - 1351 Report Status:Signed Indication: Greater than 20 total pack-year smoking history, asymptomatic former smoker Technique: Low-dose CT scan of the chest obtained as a lung cancer screening study. Multiplanar reformatted images were obtained. ??Dose reduction technique: ASIR (Adaptive statistical iterative reconstruction) and/or AEC (automated exposure control) COMPARISON: [id number]. FINDINGS: Lack of intravenous contrast limits evaluation of the edson, vascular structures and visualized abdominal viscera. Lungs/airways: Trachea and central airways are patent. ??Emphysematous changes. Bronchial wall thickening. ??Calcified granulomata. Increased/new tree-in-bud opacities in the right lower lobe with new 3 mm solid nodule (series 3, image 164) which may represent postinfectious/postinflammatory process. 9 x 7 mm opacity right upper lobe (series 3, image 63) with surrounding atelectasis/scarring, similar to most recent prior and new from 2018 and overall decreased from January 2020. Base of the neck, mediastinum, heart, chest wall, vessels: ??The assessment of hilar lymphadenopathy is difficult without the use of IV contrast. ??Prominent mediastinal lymph nodes; similar to prior. ??Thoracic aortic and coronary artery calcifications. Upper abdomen: This study was performed without contrast and with lower than standard dose. These factors reduce the sensitivity for detection of small lesions in the upper abdomen. Cholelithiasis. Bones/soft tissues: Degenerative changes IMPRESSION: Increased/new tree-in-bud opacities in the right lower lobe which may represent postinfectious/postinflammatory process. Lung RADS 0: ??Incomplete. ??Findings suggestive of an inflammatory or infectious process.1-3 month LDCT Dictating Physician: ??JHONNY DELONG MD Electronically Signed by: ??JHONNY DELONG MD Dic Date/Time: ??06/29/2346 Sign date/Time: ??06/29/2357 Procedure Note Jhonny Delong MD - 08/10/2023 [facility] Diagnostic Imaging Department [address] [place] [address] Patient: ANNA JACKSON Jennifer /Age/Sex: 1960 - 63 - M Unit#: [id number] Location/Status: [facility] Mnemonic/Ordering Site: [facility] Ordering Physician: SHARIF ALY MD CT Lung Screening Low Dose - 06/15/23 - 4793 Report Status:Signed Indication: Greater than 20 total pack-year smoking history,asymptomatic former smoker Technique: Low-dose CT scan of the chest obtained as a lung cancerscreening study. Multiplanar reformatted images were obtained. Dose reductiontechnique: ASIR (Adaptive statistical iterative reconstruction) and/or AEC(automated exposure control) COMPARISON: [id number]. FINDINGS: Lack of intravenous contrast limits evaluation of the edson,vascular structures and visualized abdominal viscera. Lungs/airways: Trachea and central airways are patent. Emphysematouschanges. Bronchial wall thickening. Calcified granulomata. Increased/new tree-in-bud opacities in the right lower lobe with new 3 mmsolid nodule (series 3, image 164) which may representpostinfectious/postinflammatory process. 9 x 7 mm opacity right upper lobe (series 3, image 63) with surrounding atelectasis/scarring, similar to most recent prior and new from 2017 andoverall decreased from January 2020. Base of the neck, mediastinum, heart, chest wall, vessels: The assessmentof hilar lymphadenopathy is difficult without the use of IV contrast.Prominent mediastinal lymph nodes; similar to prior. Thoracic aortic and coronaryartery calcifications. Upper abdomen: This study was performed without contrast and with lowerthan standard dose. These factors reduce the sensitivity for detection ofsmall lesions in the upper abdomen. Cholelithiasis. Bones/soft tissues: Degenerative changes IMPRESSION: Increased/new tree-in-bud opacities in the right lower lobe which mayrepresent postinfectious/postinflammatory process. Lung RADS 0: Incomplete. 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 Do not modify or discontinue any currently active code status orders. * No CPR/Do Not Intubate Date Activated Date Inactivated Comments 05/14/2024 10:42 PM 05/18/2024 6:36 PM This code status was ascertained in the following way: Code status discussion: discussion with patient To update the patient's code status, place a code status order. Do not modify or discontinue any currently active code status orders. * Full Code - Default Date Activated Date Inactivated Comments 05/14/2024 9:44 PM 05/14/2024 10:41 PM This is o rder is used when code status has not been discussed with the patient, or code status is otherwise unknown/unconfirmed To update the patient's code status, place a code status order. Do not modify or discontinue any currently active code status orders. Healthcare Agents on File Name Relationship Healthcare Agent Relationshi p Communication Tisha Jackson Daughter Health Care Agent Daly Jackson Daughter First Alternate Health Care Agent Care Teams Public Speaking Instructor Relationship Specialty Start Date End Date Sanju Disla MD [address] [place] [address] Dr [address] [place] PCP - General 05/07/1997
== END 2024-08-17 14:07 | disposition home or self-care (01) ==
PROVIDERS: PCP Internal Medicine
DX: J10.1 Influenza due to other identified influenza virus with other respiratory manifestations (principal); J44.9 Chronic obstructive pulmonary disease, unspecified; I10 Essential (primary) hypertension; H65.93 Unspecified nonsuppurative otitis media, bilateral; J30.9 Allergic rhinitis, unspecified; I25.10 Atherosclerotic heart disease of native coronary artery without angina pectoris; F17.200 Nicotine dependence, unspecified, uncomplicated

== ENCOUNTER → 2024-08-17 13:32 | Outpatient (BNVA) | payer MEDICARE, MEDICAID, SELFPAY | PROVIDERS: PCP Internal Medicine | DX: J10.1 Influenza due to other identified influenza virus with other respiratory manifestations (principal); J44.9 Chronic obstructive pulmonary disease, unspecified; I10 Essential (primary) hypertension; H65.93 Unspecified nonsuppurative otitis media, bilateral; J30.9 Allergic rhinitis, unspecified; I25.10 Atherosclerotic heart disease of native coronary artery without angina pectoris; F17.200 Nicotine dependence, unspecified, uncomplicated; Z71.6 Tobacco abuse counseling | CPT/HCPCS: 96127; 99212 ==

== ENCOUNTER 2024-08-18 14:33 | Outpatient (AMB) | payer MEDICARE, MEDICAID, SELFPAY ==
--- OUTSIDE RECORDS SUMMARY | 2024-08-18 14:36 | XMS_ITS | Clinical Summary ---
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 Name Role Phone Sanju Disla MD Primary [...] Diagnosed Date Coronary artery disease invo lving buckland coronary artery of buckland heart without angina pectoris 07/11/2024 Assessment & [...] - 08/07/2024 4:08 PM EST Hospital Encounter [facility] Medical Surgical Unit [address] [place] [phone] Eric Norris MD Rasul, Yar M, MD Surendran, Anupama, MD COPD exacerbation ([facility]) (Primary Dx); Influenza A; Chronic obstructive pulmonary disease with acute exacerbation ([facility]) Discharge Disposition: Home or Self Care 07/11/2024 12:40 PM EST Office Visit [facility] Cardiology [facility] [address] [place] [address] Winifred Abebe NP Coronary artery disease involving buckland coronary artery of buckland heart without angina pectoris (Primary Dx); Mixed hyperlipidemia; Primary hypertension 06/08/2024 Telephone [facility] - [place] [facility] [address] [place] [phone] Josias Rayo MA 06/08/2024 Telephone [facility] - [place] [address] [phone] Jayshree Gibbs MD Durable Medical Equipment 05/26/2024 Telephone [facility] - [place] [address] [phone] Chanda Morales MA DME request (Oxygen therapy signed written order faxed to [facility]. Fax confirmation received.//) 05/19/2024 Telephone [facility] [address] [place] [address] Winifred Abebe NP 05/18/2024 Telephone [facility] - [place] [address] [phone] Jayshree Gibbs MD Fitting for DME 05/14/2024 6:04 PM EST - 05/18/2024 4:35 PM EST Hospital Encounter [facility] Intermediate Care Unit [address] [place] [phone] Andrew Hutson MD Jones, Christopher, MD Mohani, Priya, MD Chest pain, unspecified type (Primary Dx); COPD with acute exacerbation ([facility]); COPD exacerbation ([facility]); Acute on chronic hypoxic respiratory failure ([facility]) Discharge Disposition: Short Term Hospital from Last 3 Months Immunizations Name Administration Dates Next Due Influenza Quadravalent, MDCK , 0.5ml, preservative free (Flucelvax) 6mo and older 04/28/2022 Surgical History Surgery Date Site/Laterality Comments KNEE SURGERY PROCEDURE: HISTORICAL KNEE SURGERY DENTAL SURGERY PROCEDURE: [facility] UNLISTED PROCEDURE DENTOALVEOLAR STRUCTURES Medical History Medical History Date Comments Arthritis DX:Arthritis Cholelithiasis 08/10/2017 DX:Cholelithiasi s Diverticulosis 08/10/2017 DX:Diverticulosi s Hyperlipidemia 08/10/2017 DX:Hyperlipidemi a Tobacco use 02/11/2017 DX:Tobacco use Chronic obstructive pulmonar y disease (COPD) ([facility]) 02/11/2017 DX:Chronic obstructive pulmo nary disease (COPD) ([facility]) Supplemental oxygen dependent 08/10/2017 DX :Supplemental oxygen [...] 2:15 PM EST Office Visit [facility] - [place] [address] [facility] [address] [place] [phone] Jayshree Gibbs MD [address] [facility] [address] [place] [address] Health Maintenance Due Date Last Done Comments [...] THERAPY, ADULT Routine 08/04/2024 8:01 PM EST [facility] ADDITIONAL 30 MINUTES Routine 08/04/2024 7:45 PM EST [facility] EACH ADDITIONAL 30 MINUTES Routine 08/04/2024 7:45 PM EST ECG ANNOTATED 08/04/2024 ECG 12-LEAD Routine 07/11/2024 1:34 PM EST Coronary artery disease involving buckland coronary artery of buckland heart without angina pectoris NM DOBUTAMINE STRESS TEST W/ MYOCARDIAL PERFUSION Routine 05/18/2024 11:55 AM EST Chest pain, unspecified type CBC WITH AUTO DIFFERENTIAL Routine 05/18/2024 5:20 AM EST BASIC METABOLIC PANEL Routine 05/18/2024 5:20 AM EST CBC AND DIFFERENTIAL Routine 05/18/2024 5:[address] LUNG SCREENING LOW DOSE Routine 06/29/2023 6:57 AM EST Encounter for screening for malignant neoplasm of respiratory organs from Last 3 Months or Most Recently Relevant to Health Maintenance Results * (ABNORMAL) CBC auto differential (08/07/2024 6:15 AM EST) Only the most recent of3 resultswithin the time period is included. WBC 7.5 4.8 - 10.8 K/mcL LAB HEMETOLOGY METHOD 08/07/2024 8:32 AM [facility] RBC 4.40(L) 4.50 - 5.50 M/mcL LAB HEMETOLOGY METHOD 08/07/2024 8:32 AM [facility] Hemoglobin 13.4(L) 13.5 - 17.5 g/dL LAB HEMETOLOGY METHOD 08/07/2024 8:32 AM [facility] Hematocrit 40.6(L) 42.0 - 54.0 % LAB HEMETOLOGY METHOD 08/07/2024 8:32 AM [facility] MCV 92.5 79.0 - 98.0 FL LAB HEMETOLOGY METHOD 08/07/2024 8:32 AM [facility] MCH 30.5 27.0 - 32.0 pcg LAB HEMETOLOGY METHOD 08/07/2024 8:32 AM [facility] MCHC 33.0 32.0 - 37.0 g/dL LAB HEMETOLOGY METHOD 08/07/2024 8:32 AM [facility] RDW 12.5 11.0 - 15.0 % LAB HEMETOLOGY METHOD 08/07/2024 8:32 AM [facility] Platelets 232 130 - 400 K/mcL LAB HEMETOLOGY METHOD 08/07/2024 8:32 AM [facility] MPV 9.4 7.0 - 11.0 FL LAB HEMETOLOGY METHOD 08/07/2024 8:32 AM [facility] NRBC 0.0 <1.0 % LAB HEMETOLOGY METHOD 08/07/2024 8:32 AM [facility] NRBC Absolute 0.00 <0.10 K/mcL LAB HEMETOLOGY METHOD 08/07/2024 8:32 AM [facility] Neutrophils Relative 80.6 % LAB HEMETOLOGY METHOD 08/07/2024 8:32 AM [facility] Comment:This is an appended report. These results have been appended to a previously preliminary verified report. Lymphocytes Relative 11.8 % LAB HEMETOLOGY METHOD 08/07/2024 8:32 AM [facility] Comment:This is an appended report. These results have been appended to a previously preliminary verified report. Monocytes Relative 7.2 % LAB HEMETOLOGY METHOD 08/07/2024 8:32 AM [facility] Comment:This is an appended report. These results have been appended to a previously preliminary verified report. Eosinophils Relative 0.0 % LAB HEMETOLOGY METHOD 08/07/2024 8:32 AM [facility] Comment:This is an appended report. These results have been appended to a previously preliminary verified report. Basophils Relative 0.0 % LAB HEMETOLOGY METHOD 08/07/2024 8:32 AM [facility] Comment:This is an appended report. These results have been appended to a previously preliminary verified report. Immature Granulocytes Relative 0.4 % LAB HEMETOLOGY METHOD 08/07/2024 8:32 AM [facility] Comment:This is an appended report. These results have been appended to a previously preliminary verified report. Neutrophils Absolute 6.00 1.50 - 7.00 K/mcL LAB HEMETOLOGY METHOD 08/07/2024 8:32 AM [facility] Comment:This is an appended report. These results have been appended to a previously preliminary verified report. Lymphocytes Absolute 0.88(L) 1.00 - 5.00 K/mcL LAB HEMETOLOGY METHOD 08/07/2024 8:32 AM [facility] Comment:This is an appended report. These results have been appended to a previously preliminary verified report. Monocytes Absolute 0.54 0.20 - 1.00 K/mcL LAB HEMETOLOGY METHOD 08/07/2024 8:32 AM [facility] Comment:This is an appended report. These results have been appended to a previously preliminary verified report. Eosinophils Absolute 0.00 0.00 - 0.50 K/mcL LAB HEMETOLOGY METHOD 08/07/2024 8:32 AM [facility] Comment:This is an appended report. These results have been appended to a previously preliminary verified report. Basophils Absolute 0.00 0.00 - 0.20 K/mcL LAB HEMETOLOGY METHOD 08/07/2024 8:32 AM [facility] Comment:This is an appended report. These results have been appended to a previously preliminary verified report. Immature Granulocytes Absolute 0.03 0.00 - 0.03 K/mcL LAB HEMETOLOGY METHOD 08/07/2024 8:32 AM [facility] Comment:This is an appended report. These results have been appended to a previously preliminary verified report. Blood Venous blood specimen / Unknown Venipuncture / Unknown 08/07/2024 6:15 AM EST 08/07/2024 7:04 AM EST us Bill Cervantes MD LAB BLOOD ORDERABLES Final Resul t [facility] [address] [place] [address], [place] [phone] * (ABNORMAL) Basic metabolic panel (08/07/2024 6:15 AM EST) Only the most recent of5 resultswithin the time period is included. Sodium 137 133 - 145 mmol/L LAB CHEMISTRY METHOD 08/07/2024 7:53 AM [facility] Potassium 4.7 3.5 - 5.5 mmol/L LAB CHEMISTRY METHOD 08/07/2024 7:53 AM [facility] Chloride 103 96 - 110 mmol/L LAB CHEMISTRY METHOD 08/07/2024 7:53 AM [facility] CO2 31 21 - 32 mmol/L LAB CHEMISTRY METHOD 08/07/2024 7:53 AM [facility] Anion Gap 3 3 - 11 LAB CHEMISTRY METHOD 08/07/2024 7:53 AM [facility] Glucose 101(H) 70 - 100 mg/dL LAB CHEMISTRY METHOD 08/07/2024 7:53 AM [facility] BUN 23 5 - 25 mg/dL LAB CHEMISTRY METHOD 08/07/2024 7:53 AM [facility] Creatinine 0.99 0.70 - 1.30 mg/dL LAB CHEMISTRY METHOD 08/07/2024 7:53 AM [facility] eGFR 84 >=60 mL/min/1. 73m2 LAB CHEMISTRY METHOD 08/07/2024 7:53 AM EST [facility] Comment:Calculation based on the??Chronic Kidney Disease Epidemiology Collaboration (CKD-EPI) equation refit??without adjustment for race. BUN/Creatinine Ratio 23.2 LAB CHEMISTRY METHOD 08/07/2024 7:53 AM [facility] Calcium 9.2 8.5 - 10.5 mg/dL LAB CHEMISTRY METHOD 08/07/2024 7:53 AM [facility] Blood Venous blood specimen / Unknown Venipuncture / Unknown 08/07/2024 6:15 AM EST 08/07/2024 7:04 AM EST Bill Cervantes MD LAB BLOOD ORDERABLES Final Resul t [facility] [address] [place] [address], [place] [phone] * (ABNORMAL) Complete blood count (08/06/2024 5:43 AM EST) Only the most recent of2 resultswithin the time period is included. WBC 7.8 4.8 - 10.8 K/mcL LAB HEMETOLOGY METHOD 08/06/2024 7:17 AM [facility] RBC 4.40(L) 4.50 - 5.50 M/mcL LAB HEMETOLOGY METHOD 08/06/2024 7:17 AM [facility] Hemoglobin 13.8 13.5 - 17.5 g/dL LAB HEMETOLOGY METHOD 08/06/2024 7:17 AM [facility] Hematocrit 42.1 42.0 - 54.0 % LAB HEMETOLOGY METHOD 08/06/2024 7:17 AM [facility] MCV 95.0 79.0 - 98.0 FL LAB HEMETOLOGY METHOD 08/06/2024 7:17 AM [facility] MCH 31.2 27.0 - 32.0 pcg LAB HEMETOLOGY METHOD 08/06/2024 7:17 AM EST [facility] MCHC 32.8 32.0 - 37.0 g/dL LAB HEMETOLOGY METHOD 08/06/2024 7:17 AM [facility] RDW 12.8 11.0 - 15.0 % LAB HEMETOLOGY METHOD 08/06/2024 7:17 AM [facility] Platelets 233 130 - 400 K/mcL LAB HEMETOLOGY METHOD 08/06/2024 7:17 AM [facility] MPV 9.4 7.0 - 11.0 FL LAB HEMETOLOGY METHOD 08/06/2024 7:17 AM [facility] NRBC 0.0 <1.0 % LAB HEMETOLOGY METHOD 08/06/2024 7:17 AM EST [facility] NRBC Absolute 0.00 <0.10 K/mcL LAB HEMETOLOGY METHOD 08/06/2024 7:17 AM [facility] Blood Venous blood specimen / Unknown Venipuncture / Unknown 08/06/2024 5:43 AM EST 08/06/2024 6:50 AM EST us Kanika HARRISON LAB BLOOD ORDERABLES Final Resul t [facility] [address] [place] [address], [place] [phone] * Green LI heparin tube (08/05/2024 5:48 AM EST) Extra Tube Hold for add-ons. 08/05/2024 8:01 AM EST [facility] Comment:Auto resulted. Blood Venous blood specimen / Unknown Venipuncture / Unknown 08/05/2024 5:48 AM EST 08/05/2024 6:08 AM EST us Eric Norris MD LAB BLOOD ORDERABLES Final Result Performing Organization Address [facility] Co de Phone Number [facility] [address] [place] [address], [place] [phone] * Green NA heparin tube (08/05/2024 5:48 AM EST) Pathologist [facility] Extra Tube Hold for add-ons. 08/05/2024 8:01 AM EST [facility] Comment:Auto resulted. Blood Venous blood specimen / Unknown 08/05/2024 5:48 AM EST 08/05/2024 6:07 AM EST us Eric Norris MD LAB BLOOD ORDERABLES Final Result Performing Organization Address [facility] de Phone Number [facility] [address] [place] [address], [place] [phone] * Magnesium (08/05/2024 5:48 AM EST) [facility] Magnesium 2.5 1.9 - 2.6 mg/dL LAB CHEMISTRY METHOD 08/05/2024 6:39 AM EST [facility] Blood Venous blood specimen / Unknown Venipuncture / Unknown 08/05/2024 5:48 AM EST 08/05/2024 6:04 AM EST us Eric Norris MD LAB BLOOD ORDERABLES Final Result Performing Organization Address City/[facility]/ZIP Co de Phone Number [facility] [address] [place] [address], [place] [phone] * (ABNORMAL) Venous blood gas (08/05/2024 5:48 AM EST) pH, Donnell 7.27(L) 7.32 - 7.42 pH 08/05/2024 6:15 AM EST [facility] pCO2, Donnell 55(H) 41 - 51 mmHg 08/05/2024 6:15 AM EST [facility] pO2, Donnell 65(H) 25 - 40 mmHg 08/05/2024 6:15 AM EST [facility] HCO3, Venous 22.8 22.0 - 26.0 mmol/L 08/05/2024 6:15 AM EST [facility] O2 Sat, Donnell 92.8 % 08/05/2024 6:15 AM EST [facility] Base Excess, Donnell -2.5(L) -2.0 - 2.0 mmol/L 08/05/2024 6:15 AM EST [facility] Blood Venous blood specimen / Unknown Venipuncture / Unknown 08/05/2024 5:48 AM EST 08/05/2024 6:03 AM EST Eric Norris MD LAB BLOOD ORDERABLES Final Result Performing Organization Address City/State/[facility] Co de Phone Number [facility] [address] [place] [address], [place] [phone] * XR Chest 1 View (08/04/2024 8:33 [...] Signed Date: 08/05/2024 08:23 ET Workstation ID: [id number] Transcribed By: Self Edit Transcribed Date: 08/05/2024 [...] Signed Date: 08/05/2024 08:23 ET Workstation ID: [id number] Transcribed By: Self Edit Transcribed Date: 08/05/2024 [...] GEMUSE QTc 464 ms GEMUSE P Wave [place] 82 degrees GEMUSE R [place] 79 degrees GEMUSE T [place] 60 degrees GEMUSE ECG Interpretation Poor data quality, interpretation may be adversely affected Sinus tachycardia Right bundle branch block Abnormal ECG When compared with ECG of 11-JUL-2024 13:06, No significant change was found Confirmed by SILVER HAN ([id number]) on 08/06/2024 2:23:25 PM GEMUSE 08/04/2024 8:33 PM EST 08/06/2024 2:23 PM EST us González HARRISON ECG ORDERABLES Final Result GEMUSE * (ABNORMAL) Respiratory virus panel molecular study (08/04/2024 8:12 PM EST) Pathologist [facility] Adenovirus Detection by PCR Not Detected Not Detected LAB MICROBIOLOGY METHOD 08/04/2024 9:20 PM EST [facility] Influenza B PCR Not Detected Not Detected LAB MICROBIOLOGY METHOD 08/04/2024 9:20 PM EST [facility] Coronavirus 229E Not Detected Not Detected LAB MICROBIOLOGY METHOD 08/04/2024 9:20 PM EST [facility] Coronavirus HKU1 Not Detected Not Detected LAB MICROBIOLOGY METHOD 08/04/2024 9:20 PM EST [facility] Coronavirus OC43 Not Detected Not Detected LAB MICROBIOLOGY METHOD 08/04/2024 9:20 PM EST [facility] Coronavirus NL63 Not Detected Not Detected LAB MICROBIOLOGY METHOD 08/04/2024 9:20 PM EST [facility] Parainfluenza Virus 1 Not Detected Not Detected LAB MICROBIOLOGY METHOD 08/04/2024 9:20 PM EST [facility] Parainfluenza Virus 2 Not Detected Not Detected LAB MICROBIOLOGY METHOD 08/04/2024 9:20 PM [facility] Parainfluenza Virus 3 Not Detected Not Detected LAB MICROBIOLOGY METHOD 08/04/2024 9:20 PM EST [facility] Parainfluenza Virus 4 Not Detected Not Detected LAB MICROBIOLOGY METHOD 08/04/2024 9:20 PM EST [facility] RSV PCR Not Detected Not Detected LAB MICROBIOLOGY METHOD 08/04/2024 9:20 PM [facility] Human Metapneumovirus A and B Not Detected Not Detected LAB MICROBIOLOGY METHOD 08/04/2024 9:20 PM EST [facility] Rhinovirus/Entero virus Not Detected Not Detected LAB MICROBIOLOGY METHOD 08/04/2024 9:20 PM EST [facility] Bordetella pertussis Not Detected Not Detected LAB MICROBIOLOGY METHOD 08/04/2024 9:20 PM EST [facility] Bordetella parapertussis Not Detected Not Detected LAB MICROBIOLOGY METHOD 08/04/2024 9:20 PM [facility] Influenza A H3 Detected(A ) Not Detected LAB MICROBIOLOGY METHOD 08/04/2024 9:20 PM [facility] Mycoplasma pneumo by PCR Not Detected Not Detected LAB MICROBIOLOGY METHOD 08/04/2024 9:20 PM EST [facility] Chlamydia pneumoniae Not Detected Not Detected LAB MICROBIOLOGY METHOD 08/04/2024 9:20 PM [facility] SARS COV-2 Not Detected Not Detected LAB MICROBIOLOGY METHOD 08/04/2024 9:20 PM [facility] Swab Both anterior nares / Unknown Non-blood Collection / Unknown 08/04/2024 8:12 PM EST 08/04/2024 8:23 PM EST [facility] - 08/04/2024 9:20 PM EST Testing was performed using the [employer] Respiratory Pathogen PCR Assay. All results must [...] MICROBIOLOGY - GENERAL O RDERABLES Final Result [facility] [address] [place] [address], * Procalcitonin (08/04/2024 8:12 PM EST) Procalcitonin 0.08 <=0.16 ng/mL LAB CHEMISTRY METHOD 08/05/2024 12:23 PM [facility] Blood Venous blood specimen / Unknown Venipuncture / Unknown 08/04/2024 8:12 PM EST 08/04/2024 8:23 PM EST Mahesh [facility] - 08/05/2024 12:23 PM [...] Norris MD LAB BLOOD ORDERABLES Final Result [facility] [address] [place] [address], * [facility]ACH ADDITIONAL 30 MINUTES, [facility] ADDITIONAL 30 MINUTES (08/04/2024 [...] [facility] [place] Department [address] [place] [address] Patient: ??ANNA JACKSON ?/Age/Sex: 1960 - 63 - M Unit#: ??[id number] ? Location/Status: ??SPDICATLS/REG CLI ? Mnemonic/Ordering Site: [...] reconstruction) and/or AEC (automated exposure control) COMPARISON: [id number]. FINDINGS: Lack of intravenous contrast limits evaluation [...] most recent prior and new from 2017 and overall decreased from January 2020. Base [...] Signed by: ??JHONNY DELONG MD Dic Date/Time: ??06/29/23 0646 Sign date/Time: ??06/29/23 0657 Procedure Note Jhonny Delong MD - 08/10/2023 [facility] Diagnostic Imaging Department [address] [place] [address] Patient: ANNA JACKSON Jennifer /Age/Sex: 1960 - 63 - M Unit#: [id number] Location/Status: [facility] CLI Mnemonic/Ordering Site: [facility] Ordering Physician: SHARIF ALY MD CT Lung Screening Low Dose - 06/15/23 - 1351 Report Status:Signed Indication: Greater than 20 total pack-year smoking history,asymptomatic former smoker Technique: Low-dose CT scan of the chest obtained as a lung cancerscreening study. Multiplanar reformatted images were obtained. Dose reductiontechnique: ASIR (Adaptive statistical iterative reconstruction) and/or AEC(automated exposure control) COMPARISON: [id number]. 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
--- OUTSIDE RECORDS SUMMARY | 2024-08-18 14:36 | XMS_ITS | Encounter Summary ---
Author Organization [facility] Address [address] [place] [address] Care Team Providers Care Community Service Organization Director Name Role Phone Sanju Disla MD Primary Care Provider + [phone] Reason for Visit * Reason Comments Shortness of Breath * Auth/Cert (Routine) Specialty Diagnoses / Procedures Referred By Harlan t Referred To Contact Diagnoses Influenza A COPD exacerbation (CMS/HCC) Acute on chronic hypoxic respiratory failure (CMS/HCC) Procedures [facility] IP/OBS CARE INITIAL MODERATE LEVEL PER DAY Eric Norris MD [address] [place] [id number] Phone: tel: fax: [facility] Intermediate Care Unit [address] [place] [address] Phone: tel: Referral ID Status Reason Start Date Expiration Date Visits Re quested Visits Authorized [id number] 1 1 Encounter Details Date Type Department Care Team (Latest Contact Info) Description 08/04/2024 7:50 PM EST - 08/07/2024 4:08 PM EST Hospital Encounter [facility] Medical Surgical Unit [address] [place] [address] Eric Norris MD [address] [place] [address] Bill Cervantes MD [address] [place] [address] Edith Mendoza MD [address] [place] [phone] COPD exacerbation (CMS/[facility]) (Primary Dx); Influenza A; Chronic obstructive pulmonary disease with acute exacerbation ([facility]) Discharge Disposition: Home or Self Care Social [...] from the original note were not included. CHATHAM DISCHARGE SUMMARY Patient Information Toby Jackson : [...] Trelegy Ellipta 200-62.5-25 mcg inhaler Generic drug: jiszliwldys-qcorzuksmrdh-jdpzalupxp Where to Get Your Medications These medications were sent to [facility]/pharmacy #[id number] - [address] [place] [address], [facility] [id number] oseltamivir 75 mg capsule predniSONE 10 mg [...] Signed Date: 08/05/2024 08:23 ET Workstation ID: [id number] Transcribed By: Self Edit Transcribed Date: 08/05/2024 [...] RN - 08/07/2024 3:40 PM EST 08/07/24 7523 Transportation Transportation at discharge Family Final Discharge Disposition Home or Self Care Pt medically cleared for discharge. Dispo is home self-care. Pt script for O2 has changed. [facility] notifed Milena tatum (OV) who is aware [...] lives with girlfriend and DTR, active with [facility] for * Bill Cervantes MD - 08/06/2024 12:02 PM EST Images from the original note were not included. MEGAN PROGRESS NOTE Date: 08/06/2024 Author: Bill Cervantes MD Patient ID: Toby Jackson is a 64 y.o. male : 1960 MR#: [id number] SUBJECTIVE Subjective Patient seen and examined by [...] Signed Date: 08/05/2024 08:23 ET Workstation ID: [id number] Transcribed By: Self Edit Transcribed Date: 08/05/2024 [...] - Flu A (Droplet) / [] No [employer]: [x] Yes / [] No If YES, Cardiac Rhythm: [x] NSR, [] SB, [] ST, [] A-FIB, [] A-Flutter, [] Pacemaker, [] 1st Degree HB, [] 2nd Degree HB, [] 3rd Degree HB Reason for [employer]: CAD VS: Visit Vitals BP 116/62 Pulse [...] above 92%. Submitted by and Phone Extension: [id number] JOLANTA Vasquez * Christina Carlson RN - [...] was diagnosed with coronary artery disease in [facility] of this year. He started at [facility] was transferred over to [facility]. Patient states that he had a heart [...] 08/10/2017 DX:Cholelithiasis Chronic obstructive pulmonary disease (COPD) ([facility]) 02/11/2017 DX:Chronic obstructive pulmonary disease (COPD) ([facility]) Diverticulosis 08/10/2017 DX:Diverticulosis Essential hypertension DX:Essential hypertension Hyperlipidemia 08/10/2017 DX:Hyperlipidemia Lymphadenopathy 11/18/2017 DX:Lymphadenopathy; COMMENT: 1.[address] Pneumonia DX:Pneumonia Supplemental oxygen dependent 08/10/2017 DX:Supplemental oxygen dependent Tobacco use 02/11/2017 DX:Tobacco use Past Surgical History: Procedure Laterality Date DENTAL SURGERY PROCEDURE: ND UNLISTED PROCEDURE DENTOALVEOLAR STRUCTURES KNEE SURGERY PROCEDURE: [...] Clinical Impressions as of 08/04/242133 COPD exacerbation ([facility]) Influenza A Procedures Critical Care Performed by: [...] HUNTER Iniguez 08/04/242046 HUNTER Iniguez 08/04/242104 HUNTER Iinguez 08/04/242133 HUNTER Iniguez 08/04/242148 Cosigned by Hugh Ospina DO at 08/04/2024 10:36 PM EST documented in this encounter H&P Notes * HUNTER Hutchison - 08/05/2024 9:11 AM EST Images from the original note were not included. CHATHAM HISTORY AND PHYSICAL Patient: Toby Jackson Admission [...] Signed Date: 08/05/2024 08:23 ET Workstation ID: [id number] Transcribed By: Self Edit Transcribed Date: 08/05/2024 [...] 2:15 PM EST Office Visit Pulmonolgy - [place] [address] [place] [address] Jayshree Gibbs MD [address] [place] [address] documented as of this encounter Procedures Procedure [...] THERAPY, ADULT Routine 08/04/2024 8:01 PM EST ND CRITICAL CARE EACH ADDITIONAL 30 MINUTES Routine 08/04/2024 7:45 PM EST ND CRITICAL CARE EACH ADDITIONAL 30 MINUTES Routine 08/04/2024 7:45 PM EST ECG ANNOTATED 08/04/2024 documented in this encounter Results * (ABNORMAL) CBC auto differential (08/07/2024 6:15 AM EST) [facility] WBC 7.5 4.8 - 10.8 K/mcL LAB HEMETOLOGY METHOD 08/07/2024 8:32 AM [facility] RBC 4.40(L) 4.50 - 5.50 M/mcL LAB HEMETOLOGY METHOD 08/07/2024 8:32 AM [facility] Hemoglobin 13.4(L) 13.5 - 17.5 g/dL LAB HEMETOLOGY METHOD 08/07/2024 8:32 AM [facility] Hematocrit 40.6(L) 42.0 - 54.0 % LAB HEMETOLOGY METHOD 08/07/2024 8:32 AM [facility] MCV 92.5 79.0 - 98.0 FL LAB HEMETOLOGY METHOD 08/07/2024 8:32 AM [facility] MCH 30.5 27.0 - 32.0 pcg LAB HEMETOLOGY METHOD 08/07/2024 8:32 AM [facility] MCHC 33.0 32.0 - 37.0 g/dL LAB HEMETOLOGY METHOD 08/07/2024 8:32 AM [facility] RDW 12.5 11.0 - 15.0 % LAB HEMETOLOGY METHOD 08/07/2024 8:32 AM [facility] Platelets 232 130 - 400 K/mcL LAB HEMETOLOGY METHOD 08/07/2024 8:32 AM [facility] MPV 9.4 7.0 - 11.0 FL LAB HEMETOLOGY METHOD 08/07/2024 8:32 AM [facility] NRBC 0.0 <1.0 % LAB HEMETOLOGY METHOD 08/07/2024 8:32 AM [facility] NRBC Absolute 0.00 <0.10 K/mcL LAB HEMETOLOGY METHOD 08/07/2024 8:32 AM [facility] Neutrophils Relative 80.6 % LAB HEMETOLOGY METHOD 08/07/2024 8:32 AM [facility] Comment:This is an appended report. These results have been appended to a previously preliminary verified report. Lymphocytes Relative 11.8 % LAB HEMETOLOGY METHOD 08/07/2024 8:32 AM [facility] Comment:This is an appended report. These results have been appended to a previously preliminary verified report. Monocytes Relative 7.2 % LAB HEMETOLOGY METHOD 08/07/2024 8:32 AM [facility] Comment:This is an appended report. These results have been appended to a previously preliminary verified report. Eosinophils Relative 0.0 % LAB HEMETOLOGY METHOD 08/07/2024 8:32 AM [facility] Comment:This is an appended report. These results have been appended to a previously preliminary verified report. Basophils Relative 0.0 % LAB HEMETOLOGY METHOD 08/07/2024 8:32 AM [facility] Comment:This is an appended report. These results have been appended to a previously preliminary verified report. Immature Granulocytes Relative 0.4 % LAB HEMETOLOGY METHOD 08/07/2024 8:32 AM [facility] Comment:This is an appended report. These results have been appended to a previously preliminary verified report. Neutrophils Absolute 6.00 1.50 - 7.00 K/mcL LAB HEMETOLOGY METHOD 08/07/2024 8:32 AM EST [facility] Comment:This is an appended report. These results have been appended to a previously preliminary verified report. Lymphocytes Absolute 0.88(L) 1.00 - 5.00 K/[facility] LAB HEMETOLOGY METHOD 08/07/2024 8:32 AM EST [facility] Comment:This is an appended report. These results have been appended to a previously preliminary verified report. Monocytes Absolute 0.54 0.20 - 1.00 K/[facility] LAB HEMETOLOGY METHOD 08/07/2024 8:32 AM EST [facility] Comment:This is an appended report. These results have been appended to a previously preliminary verified report. Eosinophils Absolute 0.00 0.00 - 0.50 K/mcL LAB HEMETOLOGY METHOD 08/07/2024 8:32 AM EST [facility] Comment:This is an appended report. These results have been appended to a previously preliminary verified report. Basophils Absolute 0.00 0.00 - 0.20 K/[facility] LAB HEMETOLOGY METHOD 08/07/2024 8:32 AM EST [facility] Comment:This is an appended report. These results have been appended to a previously preliminary verified report. Immature Granulocytes Absolute 0.03 0.00 - 0.03 K/[facility] LAB HEMETOLOGY METHOD 08/07/2024 8:32 AM EST [facility] Comment:This is an appended report. These results have been appended to a previously preliminary verified report. Blood Venous blood specimen / Unknown Venipuncture / Unknown 08/07/2024 6:15 AM EST 08/07/2024 7:04 AM EST us Bill Cervantes MD LAB BLOOD ORDERABLES Final Resul t [facility] [address] [place] [address], * (ABNORMAL) Basic metabolic panel (08/07/2024 6:15 AM EST) Sodium 137 133 - 145 mmol/L LAB CHEMISTRY METHOD 08/07/2024 7:53 AM [facility] Potassium 4.7 3.5 - 5.5 mmol/L LAB CHEMISTRY METHOD 08/07/2024 7:53 AM [facility] Chloride 103 96 - 110 mmol/L LAB CHEMISTRY METHOD 08/07/2024 7:53 AM [facility] CO2 31 21 - 32 mmol/L LAB CHEMISTRY METHOD 08/07/2024 7:53 AM [facility] Anion Gap 3 3 - 11 LAB CHEMISTRY METHOD 08/07/2024 7:53 AM [facility] Glucose 101(H) 70 - 100 mg/dL LAB CHEMISTRY METHOD 08/07/2024 7:53 AM [facility] BUN 23 5 - 25 mg/dL LAB CHEMISTRY METHOD 08/07/2024 7:53 AM [facility] Creatinine 0.99 0.70 - 1.30 mg/dL LAB CHEMISTRY METHOD 08/07/2024 7:53 AM [facility] eGFR 84 >=60 mL/min/1. 73m2 LAB CHEMISTRY METHOD 08/07/2024 7:53 AM [facility] Comment:Calculation based on the??Chronic Kidney Disease Epidemiology Collaboration (CKD-EPI) equation refit??without adjustment for race. BUN/Creatinine Ratio 23.2 LAB CHEMISTRY METHOD 08/07/2024 7:53 AM [facility] Calcium 9.2 8.5 - 10.5 mg/dL LAB CHEMISTRY METHOD 08/07/2024 7:53 AM [facility] Blood Venous blood specimen / Unknown Venipuncture / Unknown 08/07/2024 6:15 AM EST 08/07/2024 7:04 AM EST us Bill Cervantes MD LAB BLOOD ORDERABLES Final Resul t [facility] [address] [place] [address], * (ABNORMAL) Basic metabolic panel (08/06/2024 5:43 AM EST) Sodium 135 133 - 145 mmol/L LAB CHEMISTRY METHOD 08/06/2024 7:29 AM [facility] Potassium 5.0 3.5 - 5.5 mmol/L LAB CHEMISTRY METHOD 08/06/2024 7:29 AM [facility] Chloride 100 96 - 110 mmol/L LAB CHEMISTRY METHOD 08/06/2024 7:29 AM [facility] CO2 31 21 - 32 mmol/L LAB CHEMISTRY METHOD 08/06/2024 7:29 AM [facility] Anion Gap 4 3 - 11 LAB CHEMISTRY METHOD 08/06/2024 7:29 AM [facility] Glucose 117(H) 70 - 100 mg/dL LAB CHEMISTRY METHOD 08/06/2024 7:29 AM [facility] BUN 25 5 - 25 mg/dL LAB CHEMISTRY METHOD 08/06/2024 7:29 AM [facility] Creatinine 1.08 0.70 - 1.30 mg/dL LAB CHEMISTRY METHOD 08/06/2024 7:29 AM [facility] eGFR 76 >=60 mL/min/1. 73m2 LAB CHEMISTRY METHOD 08/06/2024 7:29 AM [facility] Comment:Calculation based on the??Chronic Kidney Disease Epidemiology Collaboration (CKD-EPI) equation refit??without adjustment for race. BUN/Creatinine Ratio 23.1 LAB CHEMISTRY METHOD 08/06/2024 7:29 AM [facility] Calcium 9.2 8.5 - 10.5 mg/dL LAB CHEMISTRY METHOD 08/06/2024 7:29 AM [facility] Blood Venous blood specimen / Unknown Venipuncture / Unknown 08/06/2024 5:43 AM EST 08/06/2024 6:50 AM EST us Kanika HARRISON LAB BLOOD ORDERABLES Final Resul t [facility] [address] [place] [address], [place] [phone] * (ABNORMAL) Complete blood count (08/06/2024 5:43 AM EST) WBC 7.8 4.8 - 10.8 K/mcL LAB HEMETOLOGY METHOD 08/06/2024 7:17 AM [facility] RBC 4.40(L) 4.50 - 5.50 M/mcL LAB HEMETOLOGY METHOD 08/06/2024 7:17 AM [facility] Hemoglobin 13.8 13.5 - 17.5 g/dL LAB HEMETOLOGY METHOD 08/06/2024 7:17 AM [facility] Hematocrit 42.1 42.0 - 54.0 % LAB HEMETOLOGY METHOD 08/06/2024 7:17 AM [facility] MCV 95.0 79.0 - 98.0 FL LAB HEMETOLOGY METHOD 08/06/2024 7:17 AM [facility] MCH 31.2 27.0 - 32.0 pcg LAB HEMETOLOGY METHOD 08/06/2024 7:17 AM [facility] MCHC 32.8 32.0 - 37.0 g/dL LAB HEMETOLOGY METHOD 08/06/2024 7:17 AM [facility] RDW 12.8 11.0 - 15.0 % LAB HEMETOLOGY METHOD 08/06/2024 7:17 AM [facility] Platelets 233 130 - 400 K/mcL LAB HEMETOLOGY METHOD 08/06/2024 7:17 AM [facility] MPV 9.4 7.0 - 11.0 FL LAB HEMETOLOGY METHOD 08/06/2024 7:17 AM EST [facility] NRBC 0.0 <1.0 % LAB HEMETOLOGY METHOD 08/06/2024 7:17 AM EST [facility] NRBC Absolute 0.00 <0.10 K/mcL LAB HEMETOLOGY METHOD 08/06/2024 7:17 AM EST [facility] Blood Venous blood specimen / Unknown Venipuncture / Unknown 08/06/2024 5:43 AM EST 08/06/2024 6:50 AM EST Kanika HARRISON LAB BLOOD ORDERABLES Final Resul t Performing Organization Address City/[facility]/ZIP Co de Phone Number [facility] [address] [place] [address], [place] [phone] * Green LI heparin tube (08/05/2024 5:48 AM EST) Extra Tube Hold for add-ons. 08/05/2024 8:01 AM EST [facility] Comment:Auto resulted. Blood Venous blood specimen / Unknown Venipuncture / Unknown 08/05/2024 5:48 AM EST 08/05/2024 6:08 AM EST Eric Norris MD LAB BLOOD ORDERABLES Final Result [facility] [address] [place] [address], [place] [phone] * Green NA heparin tube (08/05/2024 5:48 AM EST) Extra Tube Hold for add-ons. 08/05/2024 8:01 AM EST [facility] Comment:Auto resulted. Blood Venous blood specimen / Unknown 08/05/2024 5:48 AM EST 08/05/2024 6:07 AM EST us Eric Norris MD LAB BLOOD ORDERABLES Final Result [facility] [address] [place] [address], * (ABNORMAL) CBC auto differential (08/05/2024 5:48 AM EST) WBC 6.9 4.8 - 10.8 K/mcL LAB HEMETOLOGY METHOD 08/05/2024 6:20 AM [facility] RBC 4.20(L) 4.50 - 5.50 M/mcL LAB HEMETOLOGY METHOD 08/05/2024 6:20 AM [facility] Hemoglobin 13.1(L) 13.5 - 17.5 g/dL LAB HEMETOLOGY METHOD 08/05/2024 6:20 AM [facility] Hematocrit 39.0(L) 42.0 - 54.0 % LAB HEMETOLOGY METHOD 08/05/2024 6:20 AM [facility] MCV 93.1 79.0 - 98.0 FL LAB HEMETOLOGY METHOD 08/05/2024 6:20 AM [facility] MCH 31.3 27.0 - 32.0 pcg LAB HEMETOLOGY METHOD 08/05/2024 6:20 AM [facility] MCHC 33.6 32.0 - 37.0 g/dL LAB HEMETOLOGY METHOD 08/05/2024 6:20 AM [facility] RDW 13.0 11.0 - 15.0 % LAB HEMETOLOGY METHOD 08/05/2024 6:20 AM [facility] Platelets 209 130 - 400 K/mcL LAB HEMETOLOGY METHOD 08/05/2024 6:20 AM [facility] MPV 9.1 7.0 - 11.0 FL LAB HEMETOLOGY METHOD 08/05/2024 6:20 AM [facility] NRBC 0.0 <1.0 % LAB HEMETOLOGY METHOD 08/05/2024 6:20 AM [facility] NRBC Absolute 0.00 <0.10 K/mcL LAB HEMETOLOGY METHOD 08/05/2024 6:20 AM [facility] Neutrophils Relative 91.3 % LAB HEMETOLOGY METHOD 08/05/2024 6:20 AM [facility] Lymphocytes Relative 2.3 % LAB HEMETOLOGY METHOD 08/05/2024 6:20 AM [facility] Monocytes Relative 5.9 % LAB HEMETOLOGY METHOD 08/05/2024 6:20 AM [facility] Eosinophils Relative 0.0 % LAB HEMETOLOGY METHOD 08/05/2024 6:20 AM [facility] Basophils Relative 0.1 % LAB HEMETOLOGY METHOD 08/05/2024 6:20 AM [facility] Immature Granulocytes Relative 0.4 % LAB HEMETOLOGY METHOD 08/05/2024 6:20 AM [facility] Neutrophils Absolute 6.29 1.50 - 7.00 K/mcL LAB HEMETOLOGY METHOD 08/05/2024 6:20 AM [facility] Lymphocytes Absolute 0.16(L) 1.00 - 5.00 K/mcL LAB HEMETOLOGY METHOD 08/05/2024 6:20 AM [facility] Monocytes Absolute 0.41 0.20 - 1.00 K/mcL LAB HEMETOLOGY METHOD 08/05/2024 6:20 AM [facility] Eosinophils Absolute 0.00 0.00 - 0.50 K/mcL LAB HEMETOLOGY METHOD 08/05/2024 6:20 AM [facility] Basophils Absolute 0.01 0.00 - 0.20 K/mcL LAB HEMETOLOGY METHOD 08/05/2024 6:20 AM EST [facility] Immature Granulocytes Absolute 0.03 0.00 - 0.03 K/[facility] LAB HEMETOLOGY METHOD 08/05/2024 6:20 AM EST [facility] Blood Venous blood specimen / Unknown Venipuncture / Unknown 08/05/2024 5:48 AM EST 08/05/2024 6:03 AM EST Eric Norris MD LAB BLOOD ORDERABLES Final Result Performing Organization Address [facility]/ZIP Co de Phone Number [facility] [address] [place] [address], [place] [phone] * Magnesium (08/05/2024 5:48 AM EST) Magnesium 2.5 1.9 - 2.6 mg/dL LAB CHEMISTRY METHOD 08/05/2024 6:39 AM EST [facility] Blood Venous blood specimen / Unknown Venipuncture / Unknown 08/05/2024 5:48 AM EST 08/05/2024 6:04 AM EST Eric Norris MD LAB BLOOD ORDERABLES Final Result Performing Organization Address [facility]/ZIP Co de Phone Number [facility] [address] [place] [address], [place] [phone] * (ABNORMAL) Venous blood gas (08/05/2024 5:48 AM EST) pH, Donnell 7.27(L) 7.32 - 7.42 pH 08/05/2024 6:15 AM EST [facility] pCO2, Donnell 55(H) 41 - 51 mmHg 08/05/2024 6:15 AM [facility] pO2, Donnell 65(H) 25 - 40 mmHg 08/05/2024 6:15 AM EST [facility] HCO3, Venous 22.8 22.0 - 26.0 mmol/L 08/05/2024 6:15 AM [facility] O2 Sat, Donnell 92.8 % 08/05/2024 6:15 AM [facility] Base Excess, Donnell -2.5(L) -2.0 - 2.0 mmol/L 08/05/2024 6:15 AM [facility] Blood Venous blood specimen / Unknown Venipuncture / Unknown 08/05/2024 5:48 AM EST 08/05/2024 6:03 AM EST us Eric Norris MD LAB BLOOD ORDERABLES Final Result [facility] [address] [place] [address], [place] [phone] * (ABNORMAL) Basic metabolic panel (08/05/2024 5:48 AM EST) Sodium 134 133 - 145 mmol/L LAB CHEMISTRY METHOD 08/05/2024 6:39 AM [facility] Potassium 4.4 3.5 - 5.5 mmol/L LAB CHEMISTRY METHOD 08/05/2024 6:39 AM [facility] Chloride 102 96 - 110 mmol/L LAB CHEMISTRY METHOD 08/05/2024 6:39 AM [facility] CO2 26 21 - 32 mmol/L LAB CHEMISTRY METHOD 08/05/2024 6:39 AM [facility] Anion Gap 6 3 - 11 LAB CHEMISTRY METHOD 08/05/2024 6:39 AM [facility] Glucose 128(H) 70 - 100 mg/dL LAB CHEMISTRY METHOD 08/05/2024 6:39 AM [facility] BUN 22 5 - 25 mg/dL LAB CHEMISTRY METHOD 08/05/2024 6:39 AM [facility] Creatinine 1.22 0.70 - 1.30 mg/dL LAB CHEMISTRY METHOD 08/05/2024 6:39 AM EST [facility] eGFR 65 >=60 mL/min/1. 73m2 LAB CHEMISTRY METHOD 08/05/2024 6:39 AM EST [facility] Comment:Calculation based on the??Chronic Kidney Disease Epidemiology Collaboration (CKD-EPI) equation refit??without adjustment for race. BUN/Creatinine Ratio 18.0 LAB CHEMISTRY METHOD 08/05/2024 6:39 AM EST [facility] Calcium 8.6 8.5 - 10.5 mg/dL LAB CHEMISTRY METHOD 08/05/2024 6:39 AM EST [facility] Blood Venous blood specimen / Unknown Venipuncture / Unknown 08/05/2024 5:48 AM EST 08/05/2024 6:04 AM EST Eric Norris MD LAB BLOOD ORDERABLES Final Result Performing Organization Address City/State/[place] Co de Phone Number [facility] [address] [place] [address], [place] [phone] * XR Chest 1 View (08/04/2024 8:33 [...] Signed Date: 08/05/2024 08:23 ET Workstation ID: [id number] Transcribed By: Self Edit Transcribed Date: 08/05/2024 [...] Signed Date: 08/05/2024 08:23 ET Workstation ID: [id number] Transcribed By: Self Edit Transcribed Date: 08/05/2024 08:21 ET us Eric Norris MD IMG XR PROCEDURES Final Res ult * 12-Lead ECG (08/04/2024 8:33 PM EST) Ventricular Rate ECG 115 BPM GEMUSE Atrial Rate 115 BPM GEMUSE P-R Interval 138 ms GEMUSE QRS Duration 128 ms GEMUSE Q-T Interval 336 ms GEMUSE QTc 464 ms GEMUSE P Wave [place] 82 degrees GEMUSE R [place] 79 degrees GEMUSE T [place] 60 degrees GEMUSE ECG Interpretation Poor data [...] * Procalcitonin (08/04/2024 8:12 PM EST) Pathologist [facility] Procalcitonin 0.08 <=0.16 ng/mL LAB CHEMISTRY METHOD 08/05/2024 12:23 PM EST [facility] Blood Venous blood specimen / Unknown Venipuncture / Unknown 08/04/2024 8:12 PM EST 08/04/2024 8:23 PM EST Narrative [facility] - 08/05/2024 12:23 PM EST [...] BLOOD ORDERABLES Final Result Performing Organization Address [facility]/[place] Co de Phone Number [facility] [address] [place] [address], * (ABNORMAL) Respiratory virus panel molecular study (08/04/2024 8:12 PM EST) Pathologist [facility] Adenovirus Detection by PCR Not Detected Not Detected LAB MICROBIOLOGY METHOD 08/04/2024 9:20 PM EST [facility] Influenza B PCR Not Detected Not Detected LAB MICROBIOLOGY METHOD 08/04/2024 9:20 PM EST [facility] Coronavirus 229E Not Detected Not Detected LAB MICROBIOLOGY METHOD 08/04/2024 9:20 PM EST [facility] Coronavirus HKU1 Not Detected Not Detected LAB MICROBIOLOGY METHOD 08/04/2024 9:20 PM [facility] Coronavirus OC43 Not Detected Not Detected LAB MICROBIOLOGY METHOD 08/04/2024 9:20 PM EST [facility] Coronavirus NL63 Not Detected Not Detected LAB MICROBIOLOGY METHOD 08/04/2024 9:20 PM EST [facility] Parainfluenza Virus 1 Not Detected Not Detected LAB MICROBIOLOGY METHOD 08/04/2024 9:20 PM [facility] Parainfluenza Virus 2 Not Detected Not Detected LAB MICROBIOLOGY METHOD 08/04/2024 9:20 PM [facility] Parainfluenza Virus 3 Not Detected Not Detected LAB MICROBIOLOGY METHOD 08/04/2024 9:20 PM EST [facility] Parainfluenza Virus 4 Not Detected Not Detected LAB MICROBIOLOGY METHOD 08/04/2024 9:20 PM [facility] RSV PCR Not Detected Not Detected LAB MICROBIOLOGY METHOD 08/04/2024 9:20 PM [facility] Human Metapneumovirus A and B Not Detected Not Detected LAB MICROBIOLOGY METHOD 08/04/2024 9:20 PM [facility] Rhinovirus/Entero virus Not Detected Not Detected LAB MICROBIOLOGY METHOD 08/04/2024 9:20 PM [facility] Bordetella pertussis Not Detected Not Detected LAB MICROBIOLOGY METHOD 08/04/2024 9:20 PM [facility] Bordetella parapertussis Not Detected Not Detected LAB MICROBIOLOGY METHOD 08/04/2024 9:20 PM [facility] Influenza A H3 Detected(A ) Not Detected LAB MICROBIOLOGY METHOD 08/04/2024 9:20 PM [facility] Mycoplasma pneumo by PCR Not Detected Not Detected LAB MICROBIOLOGY METHOD 08/04/2024 9:20 PM EST [facility] Chlamydia pneumoniae Not Detected Not Detected LAB MICROBIOLOGY METHOD 08/04/2024 9:20 PM [facility] SARS COV-2 Not Detected Not Detected LAB MICROBIOLOGY METHOD 08/04/2024 9:20 PM [facility] Swab Both anterior nares / Unknown Non-blood Collection / Unknown 08/04/2024 8:12 PM EST 08/04/2024 8:23 PM EST Narrative [facility] - 08/04/2024 9:20 PM EST Testing was performed using the [employer] Respiratory Pathogen PCR Assay. All results must [...] are below the limit of detection. [facility] MICROBIOLOGY - GENERAL O RDERABLES Final Result [facility] [address] [place] [address], * (ABNORMAL) CBC (08/04/2024 8:12 PM EST) WBC 7.3 4.8 - 10.8 K/mcL LAB HEMETOLOGY METHOD 08/04/2024 8:28 PM [facility] RBC 4.40(L) 4.50 - 5.50 M/mcL LAB HEMETOLOGY METHOD 08/04/2024 8:28 PM [facility] Hemoglobin 13.6 13.5 - 17.5 g/dL LAB HEMETOLOGY METHOD 08/04/2024 8:28 PM [facility] Hematocrit 39.9(L) 42.0 - 54.0 % LAB HEMETOLOGY METHOD 08/04/2024 8:28 PM EST [facility] MCV 91.5 79.0 - 98.0 FL LAB HEMETOLOGY METHOD 08/04/2024 8:28 PM EST [facility] MCH 31.2 27.0 - 32.0 pcg LAB HEMETOLOGY METHOD 08/04/2024 8:28 PM EST [facility] MCHC 34.1 32.0 - 37.0 g/dL LAB HEMETOLOGY METHOD 08/04/2024 8:28 PM EST [facility] RDW 13.1 11.0 - 15.0 % LAB HEMETOLOGY METHOD 08/04/2024 8:28 PM EST [facility] Platelets 225 130 - 400 K/mcL LAB HEMETOLOGY METHOD 08/04/2024 8:28 PM EST [facility] MPV 8.9 7.0 - 11.0 FL LAB HEMETOLOGY METHOD 08/04/2024 8:28 PM EST [facility] NRBC 0.0 <1.0 % LAB HEMETOLOGY METHOD 08/04/2024 8:28 PM EST [facility] NRBC Absolute 0.00 <0.10 K/mcL LAB HEMETOLOGY METHOD 08/04/2024 8:28 PM [facility] Blood Venous blood specimen / Unknown Venipuncture / Unknown 08/04/2024 8:12 PM EST 08/04/2024 8:23 PM EST [facility] BLOOD ORDERABLES Final R esult [facility] [address] [place] [address], * (ABNORMAL) Basic Metabolic Panel (BMP) (08/04/2024 8:12 PM EST) [facility] Sodium 137 133 - 145 mmol/L LAB CHEMISTRY METHOD 08/04/2024 8:47 PM [facility] Potassium 4.1 3.5 - 5.5 mmol/L LAB CHEMISTRY METHOD 08/04/2024 8:47 PM [facility] Chloride 106 96 - 110 mmol/L LAB CHEMISTRY METHOD 08/04/2024 8:47 PM [facility] CO2 28 21 - 32 mmol/L LAB CHEMISTRY METHOD 08/04/2024 8:47 PM [facility] Anion Gap 3 3 - 11 LAB CHEMISTRY METHOD 08/04/2024 8:47 PM [facility] Glucose 107(H) 70 - 100 mg/dL LAB CHEMISTRY METHOD 08/04/2024 8:47 PM [facility] BUN 19 5 - 25 mg/dL LAB CHEMISTRY METHOD 08/04/2024 8:47 PM [facility] Creatinine 1.15 0.70 - 1.30 mg/dL LAB CHEMISTRY METHOD 08/04/2024 8:47 PM [facility] eGFR 70 >=60 mL/min/1. 73m2 LAB CHEMISTRY METHOD 08/04/2024 8:47 PM [facility] Comment:Calculation based on the??Chronic Kidney Disease Epidemiology Collaboration (CKD-EPI) equation refit??without adjustment for race. BUN/Creatinine Ratio 16.5 LAB CHEMISTRY METHOD 08/04/2024 8:47 PM [facility] Calcium 8.9 8.5 - 10.5 mg/dL LAB CHEMISTRY METHOD 08/04/2024 8:47 PM [facility] Blood Venous blood specimen / Unknown Venipuncture / Unknown 08/04/2024 8:12 PM EST 08/04/2024 8:23 PM EST [facility] BLOOD ORDERABLES Final R esult [facility] [address] [place] [address], * ND CRITICAL CARE EACH ADDITIONAL 30 MINUTES, ND CRITICAL CARE EACH ADDITIONAL 30 MINUTES (08/04/2024 [...] at 2220, 2nd Line Option: -ONLY give ND if patient is unable to take orally [...] at 2220, 2nd Line Option: -ONLY give ND if patient is unable to take orally [...] at 2220, 2nd Line Option: -ONLY give ND if patient is unable to take orally [...] documented as of this encounter Care Teams Community Service Organization Director Relationship Specialty Start Date End Date Sanju Disla MD [address] [place] PCP - General 05/07/1997 documented as of this encounter
--- NOTE | 2024-08-18 15:28 | MHC.OFFWIV ---
Intake Vital Signs 08/18/24 15:33 Weight 224 lb BP 120/70 Blood Pressure Location Lt brachial Position Sitting Pulse 85 Pulse Source Pulse Oximeter Pulse Oximetry (%) 94 Oxygen Delivery Method Room Air Intake Visit Reasons: EP-b/l ears block Intake Note: Patient here for bilat ear blockage for about 1 week. Patient Tobacco Use Status: Former Tobacco user Allergies No Known Allergies Allergy (Verified 08/18/24 15:33) Do you need a note to return to daycare/school/sports/work: No HPI HPI Comments History of Present Illness Details History - The patient is a 64-year-old male presenting with bilateral ear congestion and infection for 1 week. - Following recovery from influenza, which required a five-day hospitalization, the patient noted bilateral ear congestion and a popping sensation. - He did not experience fever during the flu illness, which he did not prevent with vaccination, nor is he currently febrile. - The patient has COPD but reports no exacerbations in breathing difficulties amid these symptoms. - Residual chest congestion noted post-irregular health due to flu. - The patient uses Flonase, a medication previously prescribed and familiar to him for managing sinus and allergy-related issues, with ongoing refills. Physical Exam General: Cooperative, healthy appearing, comfortable and no acute distress Orientation/consciousness: Patient oriented x3 Limitations: No limitations Head: Normal to inspection Ears: Hearing grossly abnormal bilaterally due to infection, external ears normall, left TM with fluid, right TM with erythema, purulent effusion and loss of landmarks Nose: Normal external nose present, Normal nares present and No nasal discharge present Face and sinus: Normal facial exam Mouth: Normal oral and palatal mucosa present and moist mucous membranes Eyes: Appearance normal, both eyes and all related structures Neck: Normal visual inspection Respiratory: Normal respiratory effort, able to speak in complete sentences, Actively coughing, no respiratory distress, not tachypneic, no tripod positioning and no use of accessory muscles Skin: No rashes or lesions noted Neuro: Patient oriented x3 Extremities: Normal to inspection and Yes no clubbing, cyanosis or edema [facility] Medical History Allergic rhinitis Overweight (BMI 25.0-29.9) Constipation Atherosclerotic cardiovascular disease Swelling of left lower extremity Vitamin B12 deficiency GERD without esophagitis Anterior chest wall pain Mixed hyperlipidemia Primary insomnia Urinary frequency Neuropathy Vitamin D deficiency Osteoarthritis Lumbar degenerative disc disease Impaired fasting glucose Benign essential hypertension COPD (chronic obstructive pulmonary disease) Headache Epidermoid cyst Surgical History History of total right knee replacement History of cardiac cath History of colonoscopy Family History Father Colon cancer Mother Medical history unknown Social History Housing: Apartment Alcohol intake: former Patient Tobacco Use Status: Former Tobacco user Tobacco use type: Cigarette Cigarettes Per Day: 15 Years Smoked: 30 +/- e-Cigarette/Vaping Use: Never Used Second Hand Smoke Exposure: Yes service: No Current occupational status: disabled Cognitive needs: No Hearing needs: Yes Vision needs: Yes (reading glasses) Review of Systems Const All systems reviewed & are unremarkable except as noted in HPI and below Physical Exam Vital Signs: Last Vital Signs Pulse 85 08/18/24 15:33 BP 120/70 08/18/24 15:33 Pulse Ox 94 08/18/24 15:33 Oxygen Delivery Method Room Air 08/18/24 15:33 Assessment & Plan Assessment & Plan (1) Otitis media: Code(s): H66.90 - Otitis media, unspecified, unspecified ear Qualifiers: Otitis media type: suppurative Chronicity: acute Laterality: right Recurrence: non-recurrent Spontaneous tympanic membrane rupture: without spontaneous rupture Qualified Code(s): H66.001 - Acute suppurative otitis media without spontaneous rupture of ear drum, right ear Plan: A confirmed bilateral ear infection will be treated with amoxicillin, dosed at two times per day over five days. Supplementary treatment with Flonase is advised to enhance fluid and infection clearance from the ear canals. Comprehensive guidance on Flonase's application method was provided, ensuring that the patient could effectively self-administer the treatment. Prescription fulfillment has been arranged at the patient's designated [facility] pharmacy. No further inquiries were raised by the patient following the detailed outline of the therapeutic approach. Patient was informed and verbally consented to the use of an ambient scribe for clinic note documentation during this visit Medications: New amoxicillin 875 mg PO Q12H 10 tabs 0RF Coding Level of Care Code Est Pt Level 3 (56205) Diagnoses Non-recurrent acute suppurative otitis media of right ear without spontaneous rupture of tympanic membrane H66.001 Otitis media type: suppurative Chronicity: acute Laterality: right Recurrence: non-recurrent Spontaneous tympanic membrane rupture: without spontaneous rupture
[2024-08-18 15:33] VITALS: BP 120/70; PULSE 85; O2SAT 94
== END 2024-08-18 15:50 | disposition home or self-care (01) ==
PROVIDERS: PCP Internal Medicine; Visit Provider Physician Assistant
DX: H66.001 Acute suppurative otitis media without spontaneous rupture of ear drum, right ear (principal)

== ENCOUNTER → 2024-08-18 14:33 | Outpatient (BNVA) | payer MEDICARE, MEDICAID, SELFPAY | PROVIDERS: PCP Internal Medicine | DX: H66.001 Acute suppurative otitis media without spontaneous rupture of ear drum, right ear (principal) | CPT/HCPCS: 99212 ==

== ENCOUNTER 2024-09-26 08:04 | Outpatient (AMB) | payer MEDICARE, MEDICAID, SELFPAY ==
[2024-09-26 08:14] VITALS: BP 122/74; PULSE 82; TEMP 36.6; O2SAT 93; BMI 30.9
--- NOTE | 2024-09-26 08:15 | AM.OFFWIN_ITS ---
Intake Vital Signs 09/26/24 08:14 Height 6 ft Weight 228 lb BMI 30.9 BP 122/74 Blood Pressure Location Lt brachial Position Sitting Pulse 82 Pulse Source Pulse Oximeter Temp 97.8 F Temp Source Oral Pulse Oximetry (%) 93 Oxygen Delivery Method Room Air Intake Visit Reasons: EP ?Strep Intake Note: pt is here for her concern regarding sore throat, possble strep or yeast infection due to inhaler Patient Tobacco Use Status: Former Tobacco user Accompanied by: Self / Same As Patient Allergies No Known Allergies Allergy (Verified 09/26/24 08:31) Do you need a note to return to daycare/school/sports/work: No HPI HPI Comments History of Present Illness Details History of Present Illness - The patient is a 64-year-old male pres enting with oral symptoms suggestive of thrush. - Reports using a steroid inhaler for fi ve years with potential suboptimal rinsing leading to oral thrush; previously treated effectively with Nystatin swish and swallow. - Current oral symptoms include burning and white patches. Physical Exam General: Cooperative, healthy appearing, comfortable, no acute distress and well developed Orientation: Patient oriented x3 Limitations: No limitations Head: Normal to inspection Ears: Hearing grossly normal bilaterally Nose: Normal External nose present Face and sinus: Normal facial exam Mouth: moist oral mucosa, slight erythema in the posterior oropharynx, no white patches or exudates noted Eyes: Appearance normal, both eyes and all related structures Neck: Normal visual inspection and Yes full ROM Respiratory: Speaking in full sentences Neuro: Patient oriented x3 Extremities: Normal to inspection PFSH Medical History Allergic rhinitis Overweight (BMI 25.0-29.9) Constipation Atherosclerotic cardiovascular disease Swelling of left lower extremity Vitamin B12 deficiency GERD without esophagitis Anterior chest wall pain Mixed hyperlipidemia Primary insomnia Urinary frequency Neuropathy Vitamin D deficiency Osteoarthritis Lumbar degenerative disc disease Impaired fasting glucose Benign essential hypertension COPD (chronic obstructive pulmonary disease) Headache Epidermoid cyst Surgical History History of total right knee replacement History of cardiac cath History of colonoscopy Family History Father Colon cancer Mother Medical history unknown Social History Housing: Apartment Alcohol intake: former Patient Tobacco Use Status: Former Tobacco user Tobacco use type: Cigarette Cigarettes Per Day: 15 Years Smoked: 30 +/- e-Cigarette/Vaping Use: Never Used Second Hand Smoke Exposure: Yes service: No Current occupational status: disabled Cognitive needs: No Hearing needs: Yes Vision needs: Yes (reading glasses) Review of Systems Const All systems reviewed & are unremarkable except as noted in HPI and below Physical Exam Vital Signs: Last Vital Signs Temp 97.8 F 09/26/24 08:14 Pulse 82 09/26/24 08:14 BP 122/74 09/26/24 08:14 Pulse Ox 93 09/26/24 08:14 Oxygen Delivery Method Room Air 09/26/24 08:14 BMI result Body Mass Index 30.9 Assessment & Plan Assessment & Plan (1) Oral thrush: Code(s): B37.0 - Candidal stomatitis Plan: Most likely diagnosis is oral thrush secondary to his Trelegy Ellipta use. However, no white patches were noticed on exam so I sent a throat culture to confirm diagnosis. I will initiate treatment for oral thrush with clotrimazole troches, providing an alternative to past treatments. The patient will use the troches 5 times throughout the day for maximal benefit. Given the negative rapid strep test in office, further action will follow should culture results necessitate. Patient was informed and verbally consented to the use of an ambient scribe for clinic note documentation during this visit. Orders: Orders Throat Culture Today J02.9 - Acute pharyngitis, unspecified Medications: New clotrimazole 10 mg mucous membrane .five times a day 50 tabs 0RF Coding Level of Care Code Est Pt Level 3 (44547) Diagnoses Oral thrush B37.0
--- OUTSIDE RECORDS SUMMARY | 2024-09-26 08:27 | XMS_ITS | Clinical Summary ---
Author Organization [facility] Address [address] [place] [address] Phone Care Team Providers Care Director Of Recreation Therapy Name Role Phone Sanju Disla MD Primary [...] mouth 1 (one) time each day. Active Active Problems Problem Noted Date Diagnosed Date Coronary artery disease invo lving telida coronary artery of telida heart without angina pectoris 07/11/2024 Assessment & [...] Encounters Date Type Department Care Team Description 09/06/2024 2:15 PM EST Office Visit Pulmonolgy - [place] [address] [facility] [address] [place] [address] Jayshree Gibbs MD Acute on chronic hypoxic respiratory failure (CMS/HCC) (Primary Dx); Chronic obstructive pulmonary disease, unspecified COPD type ([facility]/HCC) 08/22/2024 Telephone Lung Screening Program - [address] [place] [address] Joei Craig MA 08/04/2024 7:50 PM EST - 08/07/2024 4:08 PM EST Hospital Encounter [facility] [address] [place] [address] Eric Norris MD Rasul, Yar M, MD Surendran, Anupama, MD COPD exacerbation ([facility]) (Primary Dx); Influenza A; Chronic obstructive pulmonary disease with acute exacerbation ([facility]) Discharge Disposition: Home or Self Care 07/11/2024 12:40 PM EST Office Visit [facility] [address] [place] [phone] Winifred Abebe NP Coronary artery disease involving telida coronary artery of telida heart without angina pectoris (Primary Dx); Mixed hyperlipidemia; Primary hypertension from Last 3 Months Immunizations Name Administration Dates Next Due Influenza Quadravalent, MDCK , 0.5ml, preservative free (Flucelvax) 6mo and older 04/28/2022 Surgical History Surgery Date Site/Laterality Comments KNEE SURGERY PROCEDURE: HISTORICAL KNEE SURGERY DENTAL SURGERY PROCEDURE: DC UNLISTED PROCEDURE DENTOALVEOLAR STRUCTURES Medical History Medical History Date Comments Arthritis DX:Arthritis Cholelithiasis 08/10/2017 DX:Cholelithiasi s Diverticulosis 08/10/2017 DX:Diverticulosi s Hyperlipidemia 08/10/2017 DX:Hyperlipidemi a Tobacco use 02/11/2017 DX:Tobacco use Chronic obstructive pulmonar y disease (COPD) ([facility]/HCC) 02/11/2017 DX:Chronic obstructive pulmo nary disease (COPD) ([facility]) Supplemental oxygen dependent 08/10/2017 DX :Supplemental oxygen dependent Lymphadenopathy 11/18/2017 DX:Lymphadenopat hy; COMMENT: 1.[address] Asthma DX:Asthma Pneumonia DX:Pneumonia Essential hypertension DX:Essent ial hypertension Family History Relation Name Status Comments Father Mother Social History Tobacco Use Types Packs/Day Years Used Date Smoking Tobacco: Former Cigarettes 0.5 54.2 S tarted: 07/05/1970 Smokeless Tobacco: Never Quit: [...] Sign Reading Time Taken Comments Blood Pressure 144/60 09/06/2024 2:36 PM EST Pulse 83 09/06/2024 2:36 PM EST Temperature 36.2 ??C (97.2 ??F) 09/06/2024 2:36 PM ES T Respiratory Rate 20 09/06/2024 2:36 PM EST Oxygen Saturation 92% 09/06/2024 2:36 PM EST Inhaled Oxygen Concentration - - Weight 111 kg (244 lb 1.6 oz) 08/05/2024 10:00 A M EST Height 182.9 cm (6') 08/04/2024 9:57 PM EST Body Mass Index 33.11 08/04/2024 9:57 PM EST Plan of Treatment Upcoming Encounters Date Type Department Care Team (Late st Contact Info) Description 10/03/2024 1:00 PM EDT Consult Pulmonology - [place] [address] [facility] [address] [place] [phone] Meg Sheldon MD [address] [place] [id number] 03/07/2025 2:45 PM EDT Office Visit Pulmonolgy - [place] 175 [facility] [address] [place] [phone] Jayshree Gibbs MD 175 [facility] [address] [place] [address] Health Maintenance Due Date Last Done Comments Diabetes: Annual Foot Exam 01/12/1968 Diabetes: Annual Retina Eye Exam 01/12/1968 Pneumococcal Vaccine: 50+ Years (2 of 2 [...] patient's age to complete this topic Hepatitis A Vaccines Aged Out No long er eligible [...] THERAPY, ADULT Routine 08/04/2024 8:01 PM EST DC CRITICAL CARE EACH ADDITIONAL 30 MINUTES Routine 08/04/2024 7:45 PM EST DC CRITICAL CARE EACH ADDITIONAL 30 MINUTES Routine 08/04/2024 7:45 PM EST ECG ANNOTATED 08/04/2024 ECG 12-LEAD Routine 07/11/2024 1:34 PM EST Coronary artery disease involving telida coronary artery of telida heart without angina pectoris CT LUNG SCREENING LOW DOSE Routine 06/29/2023 6:57 AM EST Encounter for screening for malignant neoplasm of respiratory organs from Last 3 Months or Most Recently Relevant to Health Maintenance Results * (ABNORMAL) CBC auto differential (08/07/2024 6:15 AM EST) Only the most recent of2 resultswithin the time period is included. [facility] Signature WBC 7.5 4.8 - 10.8 K/mcL LAB HEMETOLOGY METHOD 08/07/2024 8:32 AM EST [facility] LAB RBC 4.40(L) 4.50 - 5.50 M/mcL LAB HEMETOLOGY METHOD 08/07/2024 8:32 AM [facility] [...] LAB HEMETOLOGY METHOD 08/07/2024 8:32 AM EST [facility] Comment:This is an appended report. These results have been appended to a previously preliminary verified report. Basophils Absolute 0.00 0.00 - 0.20 K/mcL [facility] 08/07/2024 8:32 AM EST [facility] Comment:This is an appended report. These results have been appended to a previously preliminary verified report. Immature Granulocytes Absolute 0.03 0.00 - 0.03 K/mcL LAB [facility] 08/07/2024 8:32 AM EST [facility] Comment:This is an appended report. These results have been appended to a previously preliminary verified report. Blood Venous blood specimen / Unknown Venipuncture / Unknown 08/07/2024 6:15 AM EST 08/07/2024 7:04 AM EST us Bill Cervantes MD LAB BLOOD ORDERABLES Final Resul t [facility] [address] [place] [address], [place] [phone] * (ABNORMAL) Basic metabolic panel (08/07/2024 6:15 AM EST) Only the most recent of4 resultswithin the time period is included. Sodium [...] mg/dL LAB CHEMISTRY METHOD 08/07/2024 7:53 AM EST [facility] eGFR 84 >=60 [...] MD LAB BLOOD ORDERABLES Final Resul t [facility] [address] [place] [address], * (ABNORMAL) Complete blood count (08/06/2024 5:43 AM EST) Only the most recent of2 resultswithin the time period is included. WBC 7.8 4.8 - 10.8 K/mcL LAB HEMETOLOGY METHOD 08/06/2024 7:17 AM [facility] RBC 4.40(L) 4.50 - 5.50 M/mcL LAB HEMETOLOGY METHOD 08/06/2024 7:17 AM EST [facility] Hemoglobin 13.8 13.5 - 17.5 g/dL LAB HEMETOLOGY METHOD 08/06/2024 7:17 AM [facility] Hematocrit 42.1 42.0 - 54.0 % LAB HEMETOLOGY METHOD 08/06/2024 7:17 AM [facility] MCV 95.0 79.0 - 98.0 FL LAB HEMETOLOGY METHOD 08/06/2024 7:17 AM EST [facility] MCH 31.2 27.0 [...] [place] LAB BLOOD ORDERABLES Final Resul t [facility] [address] [place] [address], [place] [phone] * Green LI heparin tube (08/05/2024 5:48 AM EST) Extra Tube Hold for add-ons. 08/05/2024 8:01 AM EST [facility] Comment:Auto resulted. Blood Venous blood specimen / Unknown Venipuncture / Unknown 08/05/2024 5:48 AM EST 08/05/2024 6:08 AM EST us Eric Norris MD LAB BLOOD ORDERABLES Final Result Performing Organization Address City/[facility]/ZIP Co de Phone Number [facility] [address] [place] [address], * Green NA heparin tube (08/05/2024 5:48 AM EST) Extra Tube Hold for add-ons. 08/05/2024 8:01 AM EST [facility] Comment:Auto resulted. Blood Venous blood specimen / Unknown 08/05/2024 5:48 AM EST 08/05/2024 6:07 AM EST us Eric Norris MD LAB BLOOD ORDERABLES Final Result Performing Organization Address City/[facility]/ZIP Co de Phone Number [facility] [address] [place] [address], * Magnesium (08/05/2024 5:48 AM EST) Magnesium 2.5 1.9 - 2.6 mg/dL LAB CHEMISTRY METHOD 08/05/2024 6:39 AM EST [facility] Blood Venous blood specimen / Unknown Venipuncture / Unknown 08/05/2024 5:48 AM EST 08/05/2024 6:04 AM EST us Eric Norris MD LAB BLOOD ORDERABLES Final Result [facility] [address] [place] [address], * (ABNORMAL) Venous blood gas (08/05/2024 5:48 AM EST) pH, Donnell 7.27(L) 7.32 - 7.42 pH 08/05/2024 6:15 AM EST [facility] pCO2, Donnell 55(H) 41 - 51 mmHg 08/05/2024 6:15 AM EST [facility] pO2, Donnell 65(H) 25 - 40 mmHg 08/05/2024 6:15 AM [facility] HCO3, Venous 22.8 22.0 - 26.0 mmol/L 08/05/2024 6:15 AM [facility] O2 Sat, Donnell 92.8 % 08/05/2024 6:15 AM EST [facility] Base Excess, Donnell -2.5(L) -2.0 - 2.0 mmol/L 08/05/2024 6:15 AM EST [facility] Blood Venous blood specimen / Unknown Venipuncture / Unknown 08/05/2024 5:48 AM EST 08/05/2024 6:03 AM EST Eric Norris MD LAB BLOOD ORDERABLES Final Result Performing Organization Address City/[facility]/ZIP Co de Phone Number [facility] [address] [place] [address], * XR Chest 1 View (08/04/2024 8:33 [...] Signed Date: 08/05/2024 08:23 ET Workstation ID: [id number] Transcribed By: Self Edit Transcribed Date: 08/05/2024 [...] Signed Date: 08/05/2024 08:23 ET Workstation ID: [id number] Transcribed By: Self Edit Transcribed Date: 08/05/2024 [...] GEMUSE QTc 464 ms GEMUSE P Wave [place] 82 degrees GEMUSE R [place] 79 degrees GEMUSE T [place] 60 degrees GEMUSE ECG Interpretation Poor data [...] LAB MICROBIOLOGY METHOD 08/04/2024 9:20 PM EST [facility] Parainfluenza Virus 1 Not Detected Not Detected LAB MICROBIOLOGY METHOD 08/04/2024 9:20 PM [facility] Parainfluenza Virus 2 Not Detected Not Detected LAB MICROBIOLOGY METHOD 08/04/2024 9:20 PM [facility] Parainfluenza Virus 3 Not Detected Not Detected LAB MICROBIOLOGY METHOD 08/04/2024 9:20 PM [facility] Parainfluenza Virus 4 Not Detected Not Detected LAB MICROBIOLOGY METHOD 08/04/2024 9:20 PM EST [facility] RSV PCR Not Detected [...] 8:12 PM EST 08/04/2024 8:23 PM EST [facility] - 08/04/2024 9:20 PM EST Testing was performed using the [employer] Respiratory Pathogen PCR Assay. All results must [...] O RDERABLES Final Result Performing Organization Address [facility]/ZIP Co de Phone Number [facility] [address] [place] [address], * Procalcitonin (08/04/2024 8:12 PM EST) Procalcitonin 0.08 <=0.16 ng/mL LAB CHEMISTRY METHOD 08/05/2024 12:23 PM EST [facility] Blood Venous blood specimen / Unknown Venipuncture / Unknown 08/04/2024 8:12 PM EST 08/04/2024 8:23 PM EST Narrative [facility] - 08/05/2024 12:23 PM [...] BLOOD ORDERABLES Final Result Performing Organization Address [facility]/ZIP Co de Phone Number [facility] [address] [place] [address], * DC CRITICAL CARE EACH ADDITIONAL 30 MINUTES, DC CRITICAL CARE EACH ADDITIONAL 30 MINUTES (08/04/2024 [...] Onbase MD ECG ORDERABLES Final Result * CT LUNG SCREENING LOW DOSE (06/29/2023 6:57 AM EST) Anatomical Region Laterality Modality Computed Tomogra phy 06/15/2023 1:42 PM EST Narrative 06/29/2023 6:[address] [facility] Diagnostic Imaging Department [address] [place] [address] [id number] Patient: ??ANNA JACKSON D ?/Age/Sex: 1960 - 63 - M Unit#: ??[id number] ? Location/Status: ??SPDICATLS/REG CLI ? Mnemonic/Ordering Site: [...] reconstruction) and/or AEC (automated exposure control) COMPARISON: [id number]. FINDINGS: Lack of intravenous contrast limits evaluation [...] Signed by: ??JHONNY DELONG MD Dic Date/Time: ??06/29/23645 Sign date/Time: ??06/29/2357 Procedure Note Jhonny Delong MD - 08/10/2023 [facility] Diagnostic Imaging Department [address] [place] [id number] Patient: ANNA JACKSON /Age/Sex: 1960 - 63 - M Unit#: [id number] Location/Status: [facility] CLI Mnemonic/Ordering Site: [facility] Ordering Physician: SHARIF ALY MD CT Lung Screening Low Dose - 06/15/23 - [id number] Report Status:Signed Indication: Greater than 20 total pack-year smoking history,asymptomatic former smoker Technique: Low-dose CT scan of the chest obtained as a lung cancerscreening study. Multiplanar reformatted images were obtained. Dose reductiontechnique: ASIR (Adaptive statistical iterative reconstruction) and/or AEC(automated exposure control) COMPARISON: [id number]. FINDINGS: Lack of intravenous contrast limits evaluation [...] most recent prior and new from 2018 andoverall decreased from January 2020. 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
--- OUTSIDE RECORDS SUMMARY | 2024-09-26 08:27 | XMS_ITS | Encounter Summary ---
Author Organization [facility] Address [address] [place] [address] Care Team Providers Care Cylinder Inspector And Tester Name Role Phone Sanju Disla MD Primary Care Provider + [phone] Reason for Referral * Consultation (Routine) - Authorized Specialty Diagnoses / Procedures Referred By Contac t Referred To Contact Pulmonary Disease / Pulmonology Diagnoses Acute on chronic hypoxic respiratory failure Chronic obstructive pulmonary disease, unspecified COPD type ([facility]/HCC) Jayshree Gibbs MD [address] [facility] [address] [place] [address] Phone: tel: fax: Pulmonology [facility] [address] [place] [address] Phone: tel: fax: Referral ID Status Reason Start Date Expiration Date Visits Requested Visits Authorized [id number] Authorized Specialty Services Required 09/06/2024 09/06/2025 1 1 Reason for Visit * Reason Comments COPD F/u copd Encounter Details Date Type Department Care Team ([facility] st Contact Info) Description 09/06/2024 2:15 PM EST Office Visit Pulmonolgy - [place] [address] [facility] [address] [place] [phone] Jayshree Gibbs MD [address] [facility] [address] [place] [address] Acute on chronic hypoxic respiratory failure (CMS/HCC) (Primary Dx); Chronic obstructive pulmonary disease, unspecified COPD type (CMS/HCC) Social History Tobacco Use Types Packs/Day Years [...] EST Inhaled Oxygen Concentration - - Weight - - Height - - Body Mass Index - - documented in this encounter Functional Status * Are you deaf or do you have serious difficulty hearing? Answer Date of Assessment Author No 05/14/2024 6:03 PM EST Colette Greenwood RN * Are you blind or do you have serious difficulty seeing, even when wearing glasses? Answer Date of Assessment Author No 05/14/2024 6:03 PM EST Colette Greenwood RN * Do you have serious difficulty [...] Colette Ku RN documented in this encounter Progress Notes * Jayshree Gibbs MD - 09/06/2024 2:15 PM EST ADULT PULMONARY CONSULT CHIEF COMPLAINT or REASON FOR CONSULTATION: COPD (F/u copd) Toby Jackson is a 64 y.o. years old, male with a history of COPD on oxygen. History of Present Illness The patient is a 64-year-old male who presents for evaluation of COPD. He has been diagnosed with severe chronic obstructive pulmonary disease (COPD). He was hospitalizedtwice since last visit. One time for angina and 2nd due to COPD exacerbation from influenza A. During his last visit 6 months ago, the possibility of a zephryl valve procedure was discussed. He has since ceased smoking for a duration of one month and a few days. His current treatment regimen includes Trelegy, Daliresp, nebulizers, and home oxygen therapy. Supplemental Information He had a stress test and cardiac catheterization, which revealed a blockage that could not be treated with a stent because it was already hardened and not life-threatening. SOCIAL HISTORY The patient stopped smoking a month and a couple of days ago. MEDICATIONS Trelegy, Daliresp ALLERGIES: No Known Allergies ACTIVE MEDICATIONS: Outpatient Medications Marked as Taking for the 09/06/24 encounter (Office Visit) with Jayshree Gibbs MD Medication Sig Dispense Refill albuterol 2.5 mg [...] SUPPLY MISC) Spacer/Aero- Holding Chambers (AEROCHAMBER MV) Mis 1 Device by Does not apply route [...] by mouth 1 (one) time each day. Saloni Manning 200-62.5-25 mcg inhaler PROVIDER ATTESTS THAT THE MEDICATION LIST WAS OBTAINED, REVIEWED AND UPDATED. REVIEW OF SYSTEMS: GENERAL: No wt lost or fever ENT: +snoring Eye: RESPIRATORY: + cough, wheezing and dyspnea CARDIOVASCULAR: No chest pain, leg swelling or palpitations GI: No abdominal discomfort, MUSCULOSKELETAL: +backpain HEMATOLOGY/LYMPHOLOGY No prolonged bleeding, easy bruisability ENDOCRINE: no DM NEURO: No focal weakness : Psych: no depression PAST MEDICAL HISTORY: Patient Active Problem List Diagnosis Date Noted Coronary artery disease involving sh[place] coronary artery of sh[place] heart without angina pectoris 07/11/2024 Primary hypertension 07/11/2024 Arthritis 05/26/2024 Acute on chronic hypoxic respiratory failure ([facility]) 05/15/2024 COPD exacerbation ([facility]) 05/14/2024 Inclusion cyst 05/08/2019 Lymphadenopathy 11/18/2017 Cholelithiasis 08/10/2017 Diverticulosis 08/10/2017 Hyperlipidemia 08/10/2017 Supplemental oxygen dependent 08/10/2017 Chronic obstructive pulmonary disease (COPD) ([facility]) 02/11/2017 Past Surgical History: Procedure Laterality Date DENTAL SURGERY PROCEDURE: PA UNLISTED PROCEDURE DENTOALVEOLAR STRUCTURES KNEE SURGERY PROCEDURE: HISTORICAL KNEE SURGERY FAMILY HISTORY: No family history on file. OCCUPATION OR OCCUPATION EXPOSURE: SOCIAL HISTORY Social History Socioeconomic History Marital status: Spouse name: Not on file Number of children: Not on file Years of education: Not on file Highest education level: Not on file Occupational History Not on file Tobacco Use Smoking status: Former Current packs/day: 0.50 Average packs/day: 0.5 packs/day for 54.2 years (27.1 ttl pk-yrs) Types: Cigarettes Start date: 07/05/1970 Smokeless tobacco: Never Tobacco comments: 0.5 pack daily Substance and Sexual Activity Alcohol use: Not Currently Drug use: No Sexual activity: Not on file Other Topics Concern Not on file Social History Narrative Not on file IMMUNIZATION: Immunization History Administered Date(s) Administered Influenza Quadravalent, MDCK, 0.5ml, preservative free (Flucelvax) 6mo and older 04/28/2022 Moderna SARS-CoV-2 COVID-19, mRNA, LNP-S, preservative free 10/19/2020, 11/16/2020, 07/14/2021 PHYSICAL EXAM: Visit Vitals BP (!) 144/60 (BP Location: Left arm, Patient Position: Sitting, BP Cuff Size: Adult) Pulse 83 Temp 36.2 ??C (97.2 ??F) (Temporal) Resp 20 SpO2 92% Smoking Status Former APPEARANCE: Alert and in no acute distress. EYES: Conjunctiva and sclera normal. NOSE/SINUS: Nares normal. Septum midline. Mucosa No drainage or sinus tenderness. MOUTH/THROAT: no erythema or exudates. Mallampati class 2 NECK: Neck supple, thyroid symmetric and of normal size. HEART: RRR with normal S1 and S2, no murmurs, no gallops, no JVD appreciated. LUNG: CTA b/l, no wheezing or bronchial bs ABDOMEN: Bowel sounds normoactive, soft, non-tender EXTREMITIES: no clubbing, cyanosis, or edema. LYMPH NODES: No cervical and supra-clavicular lymphadenopathy. NEURO: Awake, alert and oriented x 3, no focalization Derm: no rash DIAGNOSTIC DATA: CARDIOPULMONARY TEST: Last Pulmonary function Test showed: 04/15/21 INDICATION: SPIROMETRY: FEV1 is 20 % predicted and an FVC is 35 % predicted.The FEV1/FVC ratio is 59% of normal, Significant response to bronchodilators noted. Maximum voluntary ventilation 16% predicted. LUNG VOLUMES: Total lung capacity (TLC): 125% predicted. Residual volume (RV): 276% predicted End respiratory volume (ERV): 73% predicted RV/TLC ratio is 192% of normal DIFFUSION CAPACITY: DLCO 48% predicted. DlCO/VA 49% of predicted COMPARISONS: INTERPRETATION: This pulmonary function test shows severe obstruction with gas trapping. The findings are c/w end stage emphysema RADIOLOGIST IMAGIN05/15/2024 FINDINGS: LUNGS/PLEURA: Central airways are patent. Severe emphysema with linear atelectasis/scarring in the right upper lobe. No pneumonia, pleural effusion, or pneumothorax. Acute on chronic bronchitis with bronchiectasis, most pronounced in the lower lobes. Regions of mucous plugging seen in the lower lobes bilaterally. Linear atelectasis/scarring seen in the right lower lobe. No new or enlarging pulmonary nodules. MEDIASTINUM: Thyroid gland is normal. No mediastinal or hilar lymphadenopathy. Esophagus is normal.Cardiac chambers are normal in size. Moderate coronary artery calcifications. No pericardial effusion. No central pulmonary arterial emboli. Thoracic aorta is normal in size. CHEST WALL: No axillary lymphadenopathy or superficial hematoma. UPPER ABDOMEN:The visualized portions of the upper abdomen are unremarkable. BONES: Chronic right rib fracture deformities are unchanged. IMPRESSION: Severe emphysema. No pneumonia. ASSESSMENT: ICD-10-CM ICD-9-CM 1. Acute on chronic hypoxic respiratory failure ([facility]) J96.21 518.84 Ambulatory referral to Interventional Pulmonology 799.02 2. Chronic obstructive pulmonary disease, unspecified COPD type ([facility]) J44.9 496 Ambulatory referral to Interventional Pulmonology PLAN: Assessment & Plan 1. Chronic Obstructive Pulmonary Disease (COPD). He has severe COPD, as evidenced by his breathing patterns and reliance on a wheelchair. His lung function tests indicate a significant lack of reserve with gas trapping. He is currently on Trelegy and Daliresp, and uses nebulizers and oxygen at home. He has experienced two flare-ups, one on 02/02/2024 and another on 05/14/2024, both requiring hospitalization. He has abstained from smoking for over a month. A referral will be made to a IP for further evaluation to determine his eligibility for the Zephryl valve. - Follow up with Sanju Disla MD for the other co-morbilities. - I spend 33 Minutes on this visit. The patient was educated about his problems, where assessment and plan was reviewed and explained, All questions were answered. RETURN TO THE NEXT VISIT: Based on physical exam, symptomatology, tests requested and baseline pulmonary evaluation/disease, I instructed the patient to come back to see me in 6 mths for reevaluation after the test has been done or earlier if the patient needed. Thanks Sanju Disla MD for allowing me to have the opportunity to assist in the care of this patient. I have obtained verbal consent from Toby Jackson prior to the recording. I have advised Toby Jackson that he may refuse the recording and require the recording to be turned off at any time during this encounter. documented in this encounter Plan of Treatment Upcoming Encounters Date Type Department Care Team (Late st Contact Info) Description 10/03/2024 1:00 PM EDT Consult Pulmonology - [place] [address] [facility] [address] [place] [phone] Meg Sheldon MD [address] [place] [phone] 03/07/2025 2:45 PM EDT Office Visit Pulmonolgy - [place] [address] [facility] [address] [place] [address] Jayshree Gibbs MD [address] [facility] [address] [place] [address] Scheduled Referrals Name Type Priority Associated Diagnoses Order Schedule Ambulatory referral to Interventional Pulmonology Outpatient Referral Routine Acute on chronic hypoxic respiratory failure (CMS/HCC) Chronic obstructive pulmonary disease, unspecified COPD type (CMS/HCC) 1 Occurrences starting 09/06/2024 until 09/06/2025 documented as of this encounter Visit Diagnoses Diagnosis Acute on chronic hypoxic respiratory failure- Primary Chronic obstructive pulmonary disease, unspecified COPD type (CMS/HCC) documented in this encounter Care Teams Cylinder Inspector And Tester Relationship Specialty Start Date End Date Sanju Disla MD [address] [place] [address] [address] [place], [place] PCP - General 05/07/1997 documented as of this encounter
== END 2024-09-26 09:32 | disposition home or self-care (01) ==
PROVIDERS: PCP Internal Medicine; Visit Provider Physician Assistant
DX: Z13.9 Encounter for screening, unspecified (principal); B37.0 Candidal stomatitis

== ENCOUNTER 2024-09-26 08:04 | Outpatient (REF) | payer MEDICARE, MEDICAID, SELFPAY | END 2024-09-26 08:05 | disposition home or self-care (01) | LOC: HO.LAB 08:04 | PROVIDERS: PCP Internal Medicine; Visit Provider Physician Assistant | DX: B37.0 Candidal stomatitis (principal); J02.9 Acute pharyngitis, unspecified | CPT/HCPCS: 87070; 87880; 99212 ==

== ENCOUNTER 2024-10-12 15:51 | Outpatient (AMB) | payer MEDICARE, MEDICAID, SELFPAY ==
--- NOTE | 2024-10-12 15:56 | MHC.OFFWIV ---
Intake Vital Signs 10/12/24 16:05 Weight 228 lb BP 150/90 H Blood Pressure Location Lt brachial Position Sitting Pulse 100 Pulse Source Pulse Oximeter Pulse Oximetry (%) 94 Oxygen Delivery Method Room Air Intake Visit Reasons: EP-sore throat Intake Note: Patient here for Oral thrush that started back up this morning. Patient Tobacco Use Status: Former Tobacco user Allergies No Known Allergies Allergy (Verified 10/12/24 16:04) Do you need a note to return to daycare/school/sports/work: No HPI HPI Comments History of Present Illness Details 64 y/o male patient who presents to the walk in clinic with c/o Mouth Burning and pain with swallowing since this morning. He was seen 09/26 here at Walk in clinic and diagnosed with Oral Thrush/yeast. He was given Clotrimazole which he used as prescribed and symptoms subsided. His Throat Culture was negative for Strept infection. He has COPD and uses Trelegy inhaler - he thinks maybe he does not rinse his mouth well after use. [facility] Medical History Allergic rhinitis Overweight (BMI 25.0-29.9) Constipation Atherosclerotic cardiovascular disease Swelling of left lower extremity Vitamin B12 deficiency GERD without esophagitis Anterior chest wall pain Mixed hyperlipidemia Primary insomnia Urinary frequency Neuropathy Vitamin D deficiency Osteoarthritis Lumbar degenerative disc disease Impaired fasting glucose Benign essential hypertension COPD (chronic obstructive pulmonary disease) Headache Epidermoid cyst Surgical History History of total right knee replacement History of cardiac cath History of colonoscopy Family History Father Colon cancer Mother Medical history unknown Social History Housing: Apartment Alcohol intake: former Patient Tobacco Use Status: Former Tobacco user Tobacco use type: Cigarette Cigarettes Per Day: 15 Years Smoked: 30 +/- e-Cigarette/Vaping Use: Never Used Second Hand Smoke Exposure: Yes service: No Current occupational status: disabled Cognitive needs: No Hearing needs: Yes Vision needs: Yes (reading glasses) Review of Systems Const All systems reviewed & are unremarkable except as noted in HPI and below Physical Exam Vital Signs: Last Vital Signs Pulse 100 10/12/24 16:05 BP 150/90 H 10/12/24 16:05 Pulse Ox 94 10/12/24 16:05 Oxygen Delivery Method Room Air 10/12/24 16:05 Const General: no acute distress Nutritional Appearance: overweight Orientation/consciousness: patient oriented x3 HEENT Mouth: Normal oral and palatal mucosa present, tongue normal and moist mucous membranes Throat: Yes posterior oropharynx normal, Yes uvula midline and No uvular edema Neuro General: patient oriented x3 Assessment & Plan Assessment & Plan (1) Oral thrush: Code(s): B37.0 - Candidal stomatitis Plan: Mouth/Oral mucous and tongue normal, no Thrush present. Posterior Throat with some Mild redness, but no White patches present. Ordered Nystatin Liquid for Thrush as requested. Previous Throat Culture was negative. Medications: New nystatin Swish in the mouth and retain for as long as possible (several minutes) before swallowing. 100,000 units PO QID 7 days 60 mL 0RF B37.0 - Candidal stomatitis Coding Level of Care Code Est Pt Level 4 (57070) Diagnoses Oral thrush B37.0 Time Spent (min) 20
[2024-10-12 16:05] VITALS: BP 150/90; PULSE 100; O2SAT 94
--- OUTSIDE RECORDS SUMMARY | 2024-10-12 17:54 | XMS_ITS | Clinical Summary ---
Author Organization [address] [facility] Address [address] [place] [address] Phone Care Team Providers Care Manager Activities Name Role Phone Sanju Disla MD Primary [...] Diagnosed Date Coronary artery disease invo [place]ving [place] coronary artery of [place] heart without angina pectoris 07/11/2024 Assessment & [...] prescribed. Arthritis 05/26/2024 Acute on chronic hypoxic res piratory failure ([facility] V24, [facility] V28) 05/15/2024 COPD exacerbation ([facility] V24, [facility] V28) 04/2024 Inclusion cyst 05/08/2019 Lymphadenopathy 11/18/2017 Overview (05/26/2024): [...] Future Supplemental oxygen dependent 08/10/2017 Chronic obstructive pulmonar y disease (COPD) ([facility] V24, [facility] V28) 02/11/2017 Resolved Problems Problem Noted Date Diagnosed Date Resolved Date Chest pain 07/03/2024 07/11/2024 Encounters Date Type Department Care Team Description 10/03/2024 1:00 PM EDT Consult Pulmonology - [address] [place] [phone] Meg Sheldon MD Chronic obstructive pulmonary disease, unspecified COPD type ([facility], [facility] V28) (Primary Dx); Acute on chronic hypoxic respiratory failure ([facility], [facility] V28) 09/06/2024 2:15 PM EST Office Visit Pulmonolgy - [place] [address] [facility] [address] [place] [phone] Jayshree Gibbs MD Acute on chronic hypoxic respiratory failure ([facility], [facility] V28) (Primary Dx); Chronic obstructive pulmonary disease, unspecified COPD type ([facility], [facility] V28) 08/22/2024 Telephone Lung Screening Program - [place] [address] [facility] [address] [place] [phone] Joie Craig MA 08/04/2024 7:50 PM EST - 08/07/2024 4:08 PM EST Hospital Encounter [facility] [address] [place] [phone] Eric Norris MD Rasul, Yar M, MD Surendran, Anupama, MD COPD exacerbation ([facility], [facility] V28) (Primary Dx); Influenza A; Chronic obstructive pulmonary disease with acute exacerbation ([facility] V[facility], [facility] V28) Discharge Disposition: Home or Self Care from Last 3 Months Immunizations Name Administration Dates Next Due Influenza Quadravalent, MDCK , 0.5ml, preservative free (Flucelvax) 6mo and older 04/28/2022 Surgical History Surgery Date Site/Laterality Comments KNEE SURGERY PROCEDURE: HISTORICAL KNEE SURGERY DENTAL SURGERY PROCEDURE: TX UNLISTED PROCEDURE DENTOALVEOLAR STRUCTURES Medical History Medical History Date Comments Arthritis DX:Arthritis Cholelithiasis 08/10/2017 DX:Cholelithiasi s Diverticulosis 08/10/2017 DX:Diverticulosi s Hyperlipidemia 08/10/2017 DX:Hyperlipidemi a Tobacco use 02/11/2017 DX:Tobacco use Chronic obstructive pulmonar y disease (COPD) ([facility], [facility] V28) 02/11/2017 DX:Chronic obstructi ve pulmonary disease (COPD) (HCC) Supplemental oxygen dependent 08/10/2017 DX :Supplemental oxygen dependent Lymphadenopathy 11/18/2017 DX:Lymphadenopat hy; COMMENT: 1.[address] Asthma DX:Asthma Pneumonia DX:Pneumonia Essential hypertension DX:Essent ial hypertension Family History Relation Name Status Comments Father Mother Social History Tobacco Use Types Packs/Day Years Used Date Smoking Tobacco: Former Cigarettes 0.5 54.3 S tarted: 07/05/1970 Smokeless Tobacco: Never Quit: [...] Sign Reading Time Taken Comments Blood Pressure 114/69 10/03/2024 1:09 PM EDT Pulse 87 10/03/2024 1:09 PM EDT Temperature 37.1 ??C (98.8 ??F) 10/03/2024 1:09 PM ED T Respiratory Rate 14 10/03/2024 1:09 PM EDT Oxygen Saturation 92% 10/03/2024 1:09 PM EDT Inhaled Oxygen Concentration - - Weight 105 kg (231 lb 12.8 oz) 10/03/2024 1:09 P M EDT Height 182.9 cm (6') 10/03/2024 1:09 PM EDT Body Mass Index 31.44 10/03/2024 1:09 PM EDT Plan of Treatment Upcoming Encounters Date Type Department Care Team (Late st Contact Info) Description 10/24/2024 1:[address] [facility] Pulmonary [address] [place] [phone] 03/07/2025 2:45 PM EDT Office Visit Pulmonolgy - [place] [address] [place] [phone] Jayshree Gibbs MD 175 [facility] [address] [place] [address] Health Maintenance Due Date Last Done Comments [...] , 04/28/2022, Additional history exists RSV Immunization Adult Patients Completed 05/31/2024 HIB Vaccines Aged Out No [...] age to complete this topic Meningococcal B Vaccine Aged Out No l onger eligible based on patient's age to complete [...] THERAPY, ADULT Routine 08/04/2024 8:01 PM EST [place] CRITICAL CARE EACH ADDITIONAL 30 MINUTES Routine 08/04/2024 7:45 PM EST [place] CRITICAL CARE EACH ADDITIONAL 30 MINUTES Routine 08/04/2024 7:45 PM EST ECG ANNOTATED 08/04/2024 CT LUNG SCREENING LOW DOSE Routine 06/29/2023 6:57 AM EST Encounter for screening for malignant neoplasm of respiratory organs from Last 3 Months or Most Recently Relevant to Health Maintenance Results * (ABNORMAL) CBC auto differential (08/07/2024 6:15 AM EST) Only the most recent of2 resultswithin the time period is included. WBC 7.5 4.8 - 10.8 [facility] LAB HEMETOLOGY METHOD 08/07/2024 8:32 AM EST [facility] RBC 4.40(L) 4.50 - 5.50 M/mcL LAB HEMETOLOGY METHOD 08/07/2024 8:32 AM [facility] Hemoglobin 13.4(L) 13.5 - 17.5 g/dL LAB HEMETOLOGY METHOD 08/07/2024 8:32 AM [facility] Hematocrit 40.6(L) 42.0 - 54.0 % LAB HEMETOLOGY METHOD 08/07/2024 8:32 AM [facility] MCV 92.5 79.0 - 98.0 FL LAB HEMETOLOGY METHOD 08/07/2024 8:32 AM [facility] MCH 30.5 27.0 - 32.0 pcg LAB HEMETOLOGY METHOD 08/07/2024 8:32 AM [facility] MCHC 33.0 32.0 - 37.0 g/dL LAB HEMETOLOGY METHOD 08/07/2024 8:32 AM [facility] RDW 12.5 11.0 - 15.0 % LAB HEMETOLOGY METHOD 08/07/2024 8:32 AM [facility] Platelets 232 130 - 400 K/mcL LAB HEMETOLOGY METHOD 08/07/2024 8:32 AM [facility] MPV 9.4 7.0 - 11.0 FL LAB HEMETOLOGY METHOD 08/07/2024 8:32 AM [facility] NRBC 0.0 <1.0 % LAB HEMETOLOGY METHOD 08/07/2024 8:32 AM [facility] NRBC Absolute 0.00 <0.10 K/mcL LAB HEMETOLOGY METHOD 08/07/2024 8:32 AM [facility] Neutrophils Relative 80.6 % LAB HEMETOLOGY METHOD 08/07/2024 8:32 AM [facility] Comment:This is an appended report. These results have been appended to a previously preliminary verified report. Lymphocytes Relative 11.8 % LAB HEMETOLOGY METHOD 08/07/2024 8:32 AM [facility] Comment:This is an appended report. These results have been appended to a previously preliminary verified report. Monocytes Relative 7.2 % LAB HEMETOLOGY METHOD 08/07/2024 8:32 AM [facility] Comment:This is an appended report. These results have been appended to a previously preliminary verified report. Eosinophils Relative 0.0 % LAB HEMETOLOGY METHOD 08/07/2024 8:32 AM [facility] Comment:This is an appended report. These results have been appended to a previously preliminary verified report. Basophils Relative 0.0 % LAB HEMETOLOGY METHOD 08/07/2024 8:32 AM [facility] Comment:This is an appended report. These results have been appended to a previously preliminary verified report. Immature Granulocytes Relative 0.4 % LAB HEMETOLOGY METHOD 08/07/2024 8:32 AM [facility] Comment:This is an appended report. These results have been appended to a previously preliminary verified report. Neutrophils Absolute 6.00 1.50 - 7.00 K/mcL LAB HEMETOLOGY METHOD 08/07/2024 8:32 AM [facility] Comment:This is an appended report. These results have been appended to a previously preliminary verified report. Lymphocytes Absolute 0.88(L) 1.00 - 5.00 K/mcL LAB HEMETOLOGY METHOD 08/07/2024 8:32 AM [facility] Comment:This is an appended report. These results have been appended to a previously preliminary verified report. Monocytes Absolute 0.54 0.20 - 1.00 K/mcL LAB HEMETOLOGY METHOD 08/07/2024 8:32 AM [facility] Comment:This is an appended report. These results have been appended to a previously preliminary verified report. Eosinophils Absolute 0.00 0.00 - 0.50 K/mcL LAB HEMETOLOGY METHOD 08/07/2024 8:32 AM EST [facility] Comment:This is an appended report. These results have been appended to a previously preliminary verified report. Basophils Absolute 0.00 0.00 - 0.20 K/mcL [facility] 08/07/2024 8:32 AM EST [facility] Comment:This is an appended report. These results have been appended to a previously preliminary verified report. Immature Granulocytes Absolute 0.03 0.00 - 0.03 K/mcL [facility] 08/07/2024 8:32 AM EST [facility] Comment:This is an appended report. These results have been appended to a previously preliminary verified report. Blood Venous blood specimen / Unknown Venipuncture / Unknown 08/07/2024 6:15 AM EST 08/07/2024 7:04 AM EST us Bill Cervantes MD LAB BLOOD ORDERABLES Final Resul t [facility] [address] [place] [address], [place] [phone] * (ABNORMAL) Basic metabolic panel (08/07/2024 6:15 AM EST) Only the most recent of4 resultswithin the time period is included. Sodium 137 133 - 145 mmol/L LAB CHEMISTRY METHOD 08/07/2024 7:53 AM EST [facility] Potassium 4.7 3.5 - 5.5 mmol/L LAB CHEMISTRY METHOD 08/07/2024 7:53 AM EST [facility] Chloride 103 96 - 110 mmol/L LAB CHEMISTRY METHOD 08/07/2024 7:53 AM EST [facility] CO2 31 21 - 32 mmol/L LAB CHEMISTRY METHOD 08/07/2024 7:53 AM EST [facility] Anion Gap 3 3 - 11 LAB CHEMISTRY METHOD 08/07/2024 7:53 AM [facility] Glucose 101(H) 70 - 100 mg/dL LAB CHEMISTRY METHOD 08/07/2024 7:53 AM [facility] BUN 23 5 - 25 mg/dL LAB CHEMISTRY METHOD 08/07/2024 7:53 AM [facility] Creatinine 0.99 0.70 - 1.30 mg/dL LAB CHEMISTRY METHOD 08/07/2024 7:53 AM [facility] eGFR 84 >=60 mL/min/1. 73m2 LAB CHEMISTRY METHOD 08/07/2024 7:53 AM [facility] Comment:Calculation based on the??Chronic Kidney Disease Epidemiology Collaboration (CKD-EPI) equation refit??without adjustment for race. BUN/Creatinine Ratio 23.2 LAB CHEMISTRY METHOD 08/07/2024 7:53 AM [facility] Calcium 9.2 8.5 - 10.5 mg/dL LAB CHEMISTRY METHOD 08/07/2024 7:53 AM [facility] Blood Venous blood specimen / Unknown Venipuncture / Unknown 08/07/2024 6:15 AM EST 08/07/2024 7:04 AM EST us Bill Cervantes MD LAB BLOOD ORDERABLES Final Resul t [facility] [address] [place] [address], * (ABNORMAL) Complete blood count (08/06/2024 5:43 AM EST) Only the most recent of2 resultswithin the time period is included. WBC 7.8 4.8 - 10.8 K/mcL LAB HEMETOLOGY METHOD 08/06/2024 7:17 AM [facility] RBC 4.40(L) 4.50 - 5.50 M/mcL LAB HEMETOLOGY METHOD 08/06/2024 7:17 AM EST [facility] Hemoglobin 13.8 13.5 - 17.5 g/dL LAB HEMETOLOGY METHOD 08/06/2024 7:17 AM [facility] Hematocrit 42.1 42.0 - 54.0 % LAB HEMETOLOGY METHOD 08/06/2024 7:17 AM [facility] MCV 95.0 79.0 - 98.0 FL LAB HEMETOLOGY METHOD 08/06/2024 7:17 AM [facility] MCH 31.2 27.0 - 32.0 pcg LAB HEMETOLOGY METHOD 08/06/2024 7:17 AM [facility] MCHC 32.8 32.0 - 37.0 g/dL LAB HEMETOLOGY METHOD 08/06/2024 7:17 AM [facility] RDW 12.8 11.0 - 15.0 % LAB HEMETOLOGY METHOD 08/06/2024 7:17 AM [facility] Platelets 233 130 - 400 K/mcL LAB HEMETOLOGY METHOD 08/06/2024 7:17 AM [facility] MPV 9.4 7.0 - 11.0 FL LAB HEMETOLOGY METHOD 08/06/2024 7:17 AM [facility] NRBC 0.0 <1.0 % LAB HEMETOLOGY METHOD 08/06/2024 7:17 AM [facility] NRBC Absolute 0.00 <0.10 K/mcL LAB HEMETOLOGY METHOD 08/06/2024 7:17 AM [facility] Blood Venous blood specimen / Unknown Venipuncture / Unknown 08/06/2024 5:43 AM EST 08/06/2024 6:50 AM EST us Kanika HARRISON LAB BLOOD ORDERABLES Final Resul t [facility] [address] [place] [address], [place] [phone] * Green LI heparin tube (08/05/2024 5:48 AM EST) Extra Tube Hold for add-ons. 08/05/2024 8:01 AM EST [facility] Comment:Auto resulted. Blood Venous blood specimen / Unknown Venipuncture / Unknown 08/05/2024 5:48 AM EST 08/05/2024 6:08 AM EST us Eric Norris MD LAB BLOOD ORDERABLES Final Result [facility] [address] [place] [address], [place] [phone] * Green NA heparin tube (08/05/2024 5:48 AM EST) Extra Tube Hold for add-ons. 08/05/2024 8:01 AM EST [facility] Comment:Auto resulted. Blood Venous blood specimen / Unknown 08/05/2024 5:48 AM EST 08/05/2024 6:07 AM EST us Eric Norris MD LAB BLOOD ORDERABLES Final Result [facility] [address] [place] [address], [place] [phone] * Magnesium (08/05/2024 5:48 AM EST) Magnesium 2.5 1.9 - 2.6 mg/dL LAB CHEMISTRY METHOD 08/05/2024 6:39 AM EST [facility] Blood Venous blood specimen / Unknown Venipuncture / Unknown 08/05/2024 5:48 AM EST 08/05/2024 6:04 AM EST us Eric Norris MD LAB BLOOD ORDERABLES Final Result Performing Organization Address [facility] de Phone Number [facility] [address] [place] [address], * (ABNORMAL) Venous blood gas (08/05/2024 5:48 AM EST) pH, Donnell 7.27(L) 7.32 - 7.42 pH 08/05/2024 6:15 AM EST [facility] pCO2, Donnell 55(H) 41 - 51 mmHg 08/05/2024 6:15 AM EST [facility] pO2, Donnell 65(H) 25 - 40 mmHg 08/05/2024 6:15 AM [facility] HCO3, Venous 22.8 22.0 - 26.0 mmol/L 08/05/2024 6:15 AM [facility] O2 Sat, Donnell 92.8 % 08/05/2024 6:15 AM EST [facility] Base Excess, Donnell -2.5(L) -2.0 - 2.0 mmol/L 08/05/2024 6:15 AM [facility] Blood Venous blood specimen / Unknown Venipuncture / Unknown 08/05/2024 5:48 AM EST 08/05/2024 6:03 AM EST Erci Norris MD LAB BLOOD ORDERABLES Final Result Performing Organization Address [facility]/ZIP Co de Phone Number [facility] [address] [place] [address], * XR Chest 1 View (08/04/2024 8:33 [...] Signed Date: 08/05/2024 08:23 ET Workstation ID: [id number] Transcribed By: Self Edit Transcribed Date: 08/05/2024 [...] Signed Date: 08/05/2024 08:23 ET Workstation ID: [id number] Transcribed By: Self Edit Transcribed Date: 08/05/2024 08:21 ET us Eric Norris MD IMG XR PROCEDURES Final Res ult * 12-Lead ECG (08/04/2024 8:33 PM EST) Ventricular Rate ECG 115 BPM GEMUSE Atrial Rate 115 BPM GEMUSE P-R Interval 138 ms GEMUSE QRS Duration 128 ms GEMUSE Q-T Interval 336 ms GEMUSE QTc 464 ms GEMUSE P Wave Peacham 82 degrees GEMUSE R Peacham 79 degrees GEMUSE T [place]am 60 degrees GEMUSE ECG Interpretation Poor data [...] Detected LAB MICROBIOLOGY METHOD 08/04/2024 9:20 PM [facility] Influenza B PCR Not Detected Not Detected LAB MICROBIOLOGY METHOD 08/04/2024 9:20 PM [facility] Coronavirus 229E Not Detected Not Detected LAB MICROBIOLOGY METHOD 08/04/2024 9:20 PM [facility] Coronavirus HKU1 Not Detected Not Detected LAB MICROBIOLOGY METHOD 08/04/2024 9:20 PM [facility] Coronavirus OC43 Not Detected Not Detected LAB MICROBIOLOGY METHOD 08/04/2024 9:20 PM [facility] Coronavirus NL63 Not Detected Not Detected LAB MICROBIOLOGY METHOD 08/04/2024 9:20 PM [facility] Parainfluenza Virus 1 Not Detected Not Detected LAB MICROBIOLOGY METHOD 08/04/2024 9:20 PM [facility] Parainfluenza Virus 2 Not Detected Not Detected LAB MICROBIOLOGY METHOD 08/04/2024 9:20 PM [facility] Parainfluenza Virus 3 Not Detected Not Detected LAB MICROBIOLOGY METHOD 08/04/2024 9:20 PM [facility] Parainfluenza Virus 4 Not Detected Not Detected LAB MICROBIOLOGY METHOD 08/04/2024 9:20 PM EST [facility] RSV PCR Not Detected Not Detected LAB MICROBIOLOGY METHOD 08/04/2024 9:20 PM [facility] Human Metapneumovirus A and B Not Detected Not Detected LAB MICROBIOLOGY METHOD 08/04/2024 9:20 PM [facility] Rhinovirus/Entero virus Not Detected Not Detected LAB MICROBIOLOGY METHOD 08/04/2024 9:20 PM [facility] Bordetella pertussis Not Detected Not Detected LAB MICROBIOLOGY METHOD 08/04/2024 9:20 PM [facility] Bordetella parapertussis Not Detected Not Detected LAB MICROBIOLOGY METHOD 08/04/2024 9:20 PM [facility] Influenza A H3 Detected(A ) Not Detected LAB MICROBIOLOGY METHOD 08/04/2024 9:20 PM [facility] Mycoplasma pneumo by PCR Not Detected Not Detected LAB MICROBIOLOGY METHOD 08/04/2024 9:20 PM [facility] Chlamydia pneumoniae Not Detected Not Detected LAB MICROBIOLOGY METHOD 08/04/2024 9:20 PM [facility] SARS COV-2 Not Detected Not Detected LAB MICROBIOLOGY METHOD 08/04/2024 9:20 PM [facility] Swab Both anterior nares / Unknown Non-blood Collection / Unknown 08/04/2024 8:12 PM EST 08/04/2024 8:23 PM EST [facility] - 08/04/2024 9:20 PM EST Testing was performed using the [employer] Respiratory Pathogen PCR Assay. All results [...] O RDERABLES Final Result Performing Organization Address [facility]/ZIP Co de Phone Number [facility] [address] [place] [address], * Procalcitonin (08/04/2024 8:12 PM EST) Procalcitonin 0.08 <=0.16 ng/mL LAB CHEMISTRY METHOD 08/05/2024 12:23 PM EST [facility] Blood Venous blood specimen / Unknown Venipuncture / Unknown 08/04/2024 8:12 PM EST 08/04/2024 8:23 PM EST Narrative [facility] - 08/05/2024 12:23 PM EST [...] BLOOD ORDERABLES Final Result Performing Organization Address [facility]/ZIP Co de Phone Number [facility] [address] [place] [address], [place] [phone] * TX CRITICAL CARE EACH ADDITIONAL 30 MINUTES, [place] CRITICAL CARE EACH ADDITIONAL 30 MINUTES (08/04/2024 [...] PM EST Narrative 06/29/2023 6:57 AM EST [facility] Diagnostic Imaging Department [address] [place] [address] [id number] Patient: ??ANNA JACKSON ?/Age/Sex: 1960 - 63 - M Unit#: ??[id number] ? Location/Status: ??SPDICATLS/REG CLI ? Mnemonic/Ordering Site: [...] reconstruction) and/or AEC (automated exposure control) COMPARISON: [id number]. FINDINGS: Lack of intravenous contrast limits evaluation [...] infectious process.1-3 month LDCT Dictating Physician: ??JHONNY PATEL MD Electronically Signed by: ??JHONNY PATEL MD Dic Date/Time: ??06/29/2346 Sign date/Time: ??06/29/2357 Procedure Note Jhonny Patel MD - 08/10/2023 [facility] Diagnostic Imaging Department [address] [place] [id number] Patient: ANNA JACKSON /Age/Sex: 1960 - 63 - M Unit#: [id number] Location/Status: SPDICATLS/REG CLI Mnemonic/Ordering Site: [facility] Ordering Physician: SHARIF ALY MD CT Lung Screening Low Dose - 06/15/23 - [id number] Report Status:Signed Indication: Greater than 20 total pack-year smoking history,asymptomatic former smoker Technique: Low-dose CT scan of the chest obtained as a lung cancerscreening study. Multiplanar reformatted images were obtained. Dose reductiontechnique: ASIR (Adaptive statistical iterative reconstruction) and/or AEC(automated exposure control) COMPARISON: [id number]. 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
== END 2024-10-12 16:52 | disposition home or self-care (01) ==
PROVIDERS: PCP Internal Medicine; Visit Provider Nurse Practitioner Family
DX: B37.0 Candidal stomatitis (principal)

== ENCOUNTER → 2024-10-12 15:51 | Outpatient (BNVA) | payer MEDICARE, MEDICAID, SELFPAY | PROVIDERS: PCP Internal Medicine; Visit Provider Nurse Practitioner Family | DX: B37.0 Candidal stomatitis (principal) | CPT/HCPCS: 99212 ==

== ENCOUNTER 2024-10-19 13:24 | Outpatient (AMB) | payer MEDICARE, MEDICAID, SELFPAY ==
[2024-10-19 13:38] VITALS: BP 120/60; PULSE 93; BMI 31.3
--- NOTE | 2024-10-19 13:38 | MHC.OFFVIS ---
Vital Signs 10/19/24 13:38 Height 6 ft Weight 230 lb 9.656 oz BMI 31.3 BP 120/60 Blood Pressure Location Lt brachial Position Sitting Pulse 93 Pulse Source Monitor Intake Visit Reasons: 6m f/u-preop/Dr Estuardo Marcum- [facility] [facility] Required: No Accompanied by: Spouse Allergies No Known Allergies Allergy (Verified 10/12/24 16:04) Medication List - Last Reconciled 10/19/24 by Esdras Thorpe MD albuterol sulfate 90 mcg/actuation (Ventolin HFA) 2 puffs inhalation Q6H PRN albuterol sulfate 2.5 mg (3 mL) continuous nebulization QID PRN allopurinol 100 mg PO DAILY 90 days amlodipine 5 mg PO DAILY aspirin 81 mg PO DAILY atorvastatin 80 mg PO DAILY bisacodyl (Gentle Laxative (bisacodyl)) 10 mg (2 x 5 mg) PO BEDTIME cholecalciferol (vitamin D3) (Vitamin D3) 25 mcg PO DAILY clotrimazole 10 mg mucous membrane .five times a day cyanocobalamin (vitamin B-12) 1,000 mcg PO DAILY docusate sodium 100 mg PO BEDTIME fluticasone propionate 50 mcg/actuation 2 sprays intranasal DAILY PRN 30 days [id number]-[id number] 200-62.5-25 mcg (Trelegy Ellipta) 1 ea inhalation DAILY isosorbide mononitrate ER 30 mg PO DAILY losartan 100 mg PO DAILY nitroglycerin 0.4 mg sublingual Q5M nystatin 100,000 units PO QID 7 days potassium citrate ER 20 mEq (2 x 10 mEq (1,080 mg)) PO BID 90 days roflumilast (Daliresp) 500 mcg PO DAILY tamsulosin 0.4 mg PO BEDTIME 14 days HPI Comments Details: Toby returns for follow-up regarding coronary artery disease. He also has advanced COPD. He has a history of chronic total occlusion right coronary artery. Has significant COPD at baseline. Overall, feels just about the same as before. Breathing is similar. No angina. There was a plan for possible BLVR procedure per thoracic surgery, but patient and significant other state they have decided to not proceed. FOR[facility]LY [facility], [facility] Medical History Allergic rhinitis Overweight (BMI 25.0-29.9) Constipation Atherosclerotic cardiovascular disease Swelling of left lower extremity Vitamin B12 deficiency GERD without esophagitis Anterior chest wall pain Mixed hyperlipidemia Primary insomnia Urinary frequency Neuropathy Vitamin D deficiency Osteoarthritis Lumbar degenerative disc disease Impaired fasting glucose Benign essential hypertension COPD (chronic obstructive pulmonary disease) Headache Epidermoid cyst Surgical History History of total right knee replacement History of cardiac cath History of colonoscopy Family History Father Colon cancer Mother Medical history unknown Social History Housing: Apartment Alcohol intake: former Patient Tobacco Use Status: Former Tobacco user Tobacco use type: Cigarette Cigarettes Per Day: 15 Years Smoked: 30 +/- e-Cigarette/Vaping Use: Never Used Second Hand Smoke Exposure: Yes service: No Current occupational status: disabled Cognitive needs: No Hearing needs: Yes Vision needs: Yes (reading glasses) Review of Systems Const Denies chills, Denies fatigue, Denies fever(s), Denies frequent falls, Denies weakness, Denies weight gain and Denies weight loss ENT Denies dizziness Card Denies chest pain, Denies leg edema, Denies lightheadedness, Denies palpitations, Denies dyspnea and Denies dyspnea on exertion Resp Denies cough, Denies dyspnea and Denies dyspnea on exertion GI Denies hematochezia Musc Denies abnormal gait, Denies muscle weakness, Denies numbness, Denies radiating pain into limb and Denies tingling Neuro Denies abnormal gait, Denies dizziness, Denies frequent falls, Denies numbness, Denies tingling and Denies weakness Endo Denies fatigue and Denies palpitations Physical Exam Vital Signs: Last Vital Signs Pulse 93 10/19/24 13:38 BP 120/60 10/19/24 13:38 BMI result Body Mass Index 31.3 Const General: comfortable and no acute distress Orientation/consciousness: patient oriented x3 HEENT Other: Unremarkable Head: Yes normal to inspection Neck Neck: Yes normal visual inspection Chest Chest palpation & inspection: normal inspection of the chest Resp Auscultation: wheezes and diminished lung sounds Cardio Palpation: normal PMI Heart sounds: S1 normal heart sound present, S2 normal heart sound present, no gallops, no murmurs and no rubs GI Palpation (GI): Soft to palpation Back/Spine/Pelvis Other: unremarkable Skin General skin exam: no rashes or lesions noted Neuro General: patient oriented x3 Extrem General: Yes normal to inspection Psych Mental Status: mental status grossly normal Assessment & Plan Assessment & Plan (1) Atherosclerotic cardiovascular disease: Code(s): I25.10 - Atherosclerotic heart disease of [place] coronary artery without angina pectoris Category: Medical (2) Essential hypertension: Code(s): I10 - Essential (primary) hypertension Category: Medical (3) Other and unspecified hyperlipidemia: Code(s): E78.5 - Hyperlipidemia, unspecified Category: Medical (4) Smoking: Code(s): F17.200 - Nicotine dependence, unspecified, uncomplicated Category: Social Hx (5) Morbid obesity: Code(s): E66.01 - Morbid (severe) obesity due to excess calories Category: Medical (6) COPD (chronic obstructive pulmonary disease): Code(s): J44.9 - Chronic obstructive pulmonary disease, unspecified Category: Medical Qualifiers: COPD type: unspecified COPD Qualified Code(s): J44.9 - Chronic obstructive pulmonary disease, unspecified (7) Preoperative cardiovascular examination: Code(s): Z01.810 - Encounter for preprocedural cardiovascular examination Category: Medical Plan Cardiac studies reviewed. Cardiac catheterization 05/2024-moderate right coronary artery disease; distal RCA with 100% stenosis; chronic total occlusion. Minimal irregularities in left main; mild diffuse disease in the LAD. Normal circumflex. Medical management recommended. Echocardiogram from [facility] with LVEF of 50-55%. Lateral wall hypokinesis. For meds, continue aspirin, long-acting nitrates, amlodipine, losartan, statins. Most recent LDL 30 mg/dL. Triglycerides 77 mg/dL. With regard to the plan thoracic surgery, they have decided not to proceed. Considering fairly advanced lung disease as well as coronary disease, he will be considered to be at at least intermediate risk for perioperative cardiac complications including myocardial infarction. We discussed about this today. Discussion Notes During the visit, I discussed the risks of proceeding with the bronchoscopic lung volume reduction surgery due to the potential for cardiovascular complications, especially considering the patient?s complete right coronary artery occlusion. The risk of heart attack due to anesthesia and the lack of intervention options such as stenting was extensively reviewed, and the patient?s apprehension regarding invasive procedures was addressed. I emphasized that the strategy is to prioritize safety and stability, avoiding exacerbation of his heart condition and carefully monitoring pulmonary symptoms. I plan to follow up in six months for ongoing assessment. Patient was informed and verbally consented to the use of an ambient scribe for clinic note documentation during this visit. Patient Instructions: - Continue current medications and lifestyle practices. - Monitor symptoms and report any new or worsening symptoms. - Attend the follow-up appointment scheduled in six months. - Contact the clinic if any significant changes in cardiovascular or pulmonary status occur. Coding Level of Care Code Est Pt Level 4 (78705) Complex EM visit Add On G2211 Diagnoses Atherosclerotic cardiovascular disease I25.10 Essential hypertension I10 Other and unspecified hyperlipidemia E78.5 Smoking F17.200 Morbid obesity E66.01 Chronic obstructive pulmonary disease, unspecified COPD type J44.9 COPD type: unspecified COPD Preoperative cardiovascular examination Z01.810
--- OUTSIDE RECORDS SUMMARY | 2024-10-19 16:24 | XMS_ITS | Clinical Summary ---
Author Organization 175 [facility] Address [address] [place] [address] Phone Care Team Providers Care System Support Technician Name Role Phone Sanju Disla MD Primary [...] Diagnosed Date Coronary artery disease invo lving [place] coronary artery of [place] heart without angina pectoris 07/11/2024 Assessment & [...] Acute on chronic hypoxic res piratory failure ([facility] V24, [facility] V28) 05/15/2024 COPD exacerbation ([facility] V24, [facility] V28) 04/2024 Inclusion cyst 05/08/2019 Lymphadenopathy [...] 08/10/2017 Chronic obstructive pulmonar y disease (COPD) ([facility] V24, [facility] V28) 02/11/2017 Resolved Problems Problem Noted Date Diagnosed Date Resolved Date Chest pain 07/03/2024 07/11/2024 Encounters Date Type Department Care Team Description 10/03/2024 1:00 PM EDT Consult Pulmonology - [address] [place] [phone] Meg Sheldon MD Chronic obstructive pulmonary disease, unspecified COPD type ([facility] V24, [facility] V28) (Primary Dx); Acute on chronic hypoxic respiratory failure ([facility] V24, [facility] V28) 09/06/2024 2:15 PM EST Office Visit Pulmonolgy - [place] [address] [facility] [address] [place] [phone] Jayshree Gibbs MD Acute on chronic hypoxic respiratory failure ([facility] V24, [facility] V28) (Primary Dx); Chronic obstructive pulmonary disease, unspecified COPD type ([facility] V24, [facility] V28) 08/22/2024 Telephone Lung Screening Program - [place] [address] [facility] [address] [place] [phone] Joie Craig MA 08/04/2024 7:50 PM EST - 08/07/2024 4:08 PM EST Hospital Encounter [facility] [address] [place] [phone] Eric Norris MD Rasul, Yar M, MD Surendran, Anupama, MD COPD exacerbation ([facility] V24, [facility] V28) (Primary Dx); Influenza A; Chronic obstructive pulmonary disease with acute exacerbation ([facility] V24, [facility] V28) Discharge Disposition: Home or Self Care from Last 3 Months Immunizations Name Administration Dates Next Due Influenza Quadravalent, MDCK , 0.5ml, preservative free (Flucelvax) 6mo and older 04/28/2022 Surgical History Surgery Date Site/Laterality Comments KNEE SURGERY PROCEDURE: HISTORICAL KNEE SURGERY DENTAL SURGERY PROCEDURE: CA UNLISTED PROCEDURE DENTOALVEOLAR STRUCTURES Medical History Medical History Date Comments Arthritis DX:Arthritis Cholelithiasis 08/10/2017 DX:Cholelithiasi s Diverticulosis 08/10/2017 DX:Diverticulosi s Hyperlipidemia 08/10/2017 DX:Hyperlipidemi a Tobacco use 02/11/2017 DX:Tobacco use Chronic obstructive pulmonar y disease (COPD) ([facility] V24, [facility] V28) 02/11/2017 DX:Chronic obstructi ve pulmonary disease [...] Care Team (Late st Contact Info) Description 03/07/2025 2:45 PM EDT Office Visit Pulmonolgy - [place] [address] [facility] [address] [place] [phone] Jayshree Gibbs MD [address] [facility] [place] [address] [place] [address] Health Maintenance Due Date Last Done Comments [...] THERAPY, ADULT Routine 08/04/2024 8:01 PM EST CA CRITICAL CARE EACH ADDITIONAL 30 MINUTES Routine 08/04/2024 7:45 PM EST CA CRITICAL CARE EACH ADDITIONAL 30 MINUTES Routine [...] 08/07/2024 8:32 AM EST [facility] RBC 4.40(L) 4.50 - 5.50 M/[facility] LAB HEMETOLOGY METHOD 08/07/2024 8:32 AM [facility] Hemoglobin 13.4(L) 13.5 - 17.5 g/dL LAB HEMETOLOGY METHOD 08/07/2024 8:32 AM [facility] Hematocrit 40.6(L) 42.0 - 54.0 % LAB HEMETOLOGY METHOD 08/07/2024 8:32 AM [facility] MCV 92.5 79.0 - 98.0 FL LAB HEMETOLOGY METHOD 08/07/2024 8:32 AM [facility] MCH 30.5 27.0 - 32.0 pcg LAB HEMETOLOGY METHOD 08/07/2024 8:32 AM [facility] MCHC 33.0 32.0 - 37.0 g/dL LAB HEMETOLOGY METHOD 08/07/2024 8:32 AM [facility] RDW 12.5 11.0 - 15.0 % LAB HEMETOLOGY METHOD 08/07/2024 8:32 AM [facility] Platelets 232 130 - 400 K/mcL LAB HEMETOLOGY METHOD 08/07/2024 8:32 AM [facility] MPV 9.4 7.0 - 11.0 FL LAB HEMETOLOGY METHOD 08/07/2024 8:32 AM [facility] NRBC 0.0 <1.0 % LAB HEMETOLOGY METHOD 08/07/2024 8:32 AM [facility] NRBC Absolute 0.00 <0.10 K/mcL LAB HEMETOLOGY METHOD 08/07/2024 8:32 AM [facility] Neutrophils Relative 80.6 % LAB HEMETOLOGY METHOD 08/07/2024 8:32 AM [facility] Comment:This is an appended report. These results have been appended to a previously preliminary verified report. Lymphocytes Relative 11.8 % LAB HEMETOLOGY METHOD 08/07/2024 8:32 AM [facility] Comment:This is an appended report. These results have been appended to a previously preliminary verified report. Monocytes Relative 7.2 % LAB HEMETOLOGY METHOD 08/07/2024 8:32 AM [facility] Comment:This is an appended report. These results have been appended to a previously preliminary verified report. Eosinophils Relative 0.0 % LAB HEMETOLOGY METHOD 08/07/2024 8:32 AM [facility] Comment:This is an appended report. These results have been appended to a previously preliminary verified report. Basophils Relative 0.0 % LAB HEMETOLOGY METHOD 08/07/2024 8:32 AM [facility] Comment:This is an appended report. These results have been appended to a previously preliminary verified report. Immature Granulocytes Relative 0.4 % LAB HEMETOLOGY METHOD 08/07/2024 8:32 AM [facility] Comment:This is an appended report. These results have been appended to a previously preliminary verified report. Neutrophils Absolute 6.00 1.50 - 7.00 K/mcL LAB HEMETOLOGY METHOD 08/07/2024 8:32 AM [facility] Comment:This is an appended report. These results have been appended to a previously preliminary verified report. Lymphocytes Absolute 0.88(L) 1.00 - 5.00 K/mcL LAB HEMETOLOGY METHOD 08/07/2024 8:32 AM [facility] Comment:This is an appended report. These results have been appended to a previously preliminary verified report. Monocytes Absolute 0.54 0.20 - 1.00 K/mcL LAB HEMETOLOGY METHOD 08/07/2024 8:32 AM [facility] Comment:This is an appended report. These results have been appended to a previously preliminary verified report. Eosinophils Absolute 0.00 0.00 - 0.50 K/mcL LAB HEMETOLOGY METHOD 08/07/2024 8:32 AM [facility] Comment:This is an appended report. These results have been appended to a previously preliminary verified report. Basophils Absolute 0.00 0.00 - 0.20 K/mcL [facility] 08/07/2024 8:32 AM EST [facility] Comment:This is an appended report. These results have been appended to a previously preliminary verified report. Immature Granulocytes Absolute 0.03 0.00 - 0.03 K/mcL LAB [facility] 08/07/2024 8:32 AM EST [facility] Comment:This is an appended report. These results have been appended to a previously preliminary verified report. Blood Venous blood specimen / Unknown Venipuncture / Unknown 08/07/2024 6:15 AM EST 08/07/2024 7:04 AM EST us Bill Cervantes MD LAB BLOOD ORDERABLES Final Resul t [facility] [address] [place] [address], [place] [phone] * (ABNORMAL) Basic metabolic panel (08/07/2024 6:15 AM EST) Only the most recent of4 resultswithin the time period is included. Sodium 137 133 - 145 mmol/L LAB CHEMISTRY METHOD 08/07/2024 7:53 AM [facility] Potassium 4.7 3.5 - 5.5 mmol/L LAB CHEMISTRY METHOD 08/07/2024 7:53 AM [facility] Chloride 103 96 - 110 mmol/L LAB CHEMISTRY METHOD 08/07/2024 7:53 AM [facility] CO2 31 21 - 32 mmol/L LAB CHEMISTRY METHOD 08/07/2024 7:53 AM [facility] Anion Gap 3 3 - 11 LAB CHEMISTRY METHOD 08/07/2024 7:53 AM [facility] Glucose 101(H) 70 - 100 mg/dL LAB CHEMISTRY METHOD 08/07/2024 7:53 AM EST [facility] BUN 23 5 - 25 mg/dL LAB CHEMISTRY METHOD 08/07/2024 7:53 AM [facility] Creatinine 0.99 0.70 - 1.30 mg/dL LAB CHEMISTRY METHOD 08/07/2024 7:53 AM [facility] eGFR 84 >=60 mL/min/1. 73m2 LAB CHEMISTRY METHOD 08/07/2024 7:53 AM [facility] Comment:Calculation based on the??Chronic Kidney Disease Epidemiology Collaboration (CKD-EPI) equation refit??without adjustment for race. BUN/Creatinine Ratio 23.2 LAB CHEMISTRY METHOD 08/07/2024 7:53 AM [facility] Calcium 9.2 8.5 - 10.5 mg/dL LAB CHEMISTRY METHOD 08/07/2024 7:53 AM [facility] Blood Venous blood specimen / Unknown Venipuncture / Unknown 08/07/2024 6:15 AM EST 08/07/2024 7:04 AM EST us Bill Cervantes MD LAB BLOOD ORDERABLES Final Resul t [facility] [address] [place] [address], * (ABNORMAL) Complete blood count (08/06/2024 5:43 AM EST) Only the most recent of2 resultswithin the time period is included. WBC 7.8 4.8 - 10.8 K/mcL LAB HEMETOLOGY METHOD 08/06/2024 7:17 AM [facility] RBC 4.40(L) 4.50 - 5.50 M/mcL LAB HEMETOLOGY METHOD 08/06/2024 7:17 AM [facility] Hemoglobin 13.8 13.5 - 17.5 g/dL LAB HEMETOLOGY METHOD 08/06/2024 7:17 AM EST [facility] Hematocrit 42.1 42.0 - 54.0 % LAB HEMETOLOGY METHOD 08/06/2024 7:17 AM [facility] MCV 95.0 79.0 - 98.0 FL LAB HEMETOLOGY METHOD 08/06/2024 7:17 AM [facility] MCH 31.2 27.0 - 32.0 pcg LAB HEMETOLOGY METHOD 08/06/2024 7:17 AM EST [facility] MCHC 32.8 32.0 - 37.0 g/dL LAB HEMETOLOGY METHOD 08/06/2024 7:17 AM [facility] RDW 12.8 11.0 - 15.0 % LAB HEMETOLOGY METHOD 08/06/2024 7:17 AM [facility] Platelets 233 130 - 400 K/mcL LAB HEMETOLOGY METHOD 08/06/2024 7:17 AM EST [facility] MPV 9.4 7.0 - 11.0 FL LAB HEMETOLOGY METHOD 08/06/2024 7:17 AM [facility] NRBC 0.0 <1.0 % LAB HEMETOLOGY METHOD 08/06/2024 7:17 AM [facility] NRBC Absolute 0.00 <0.10 K/mcL LAB HEMETOLOGY METHOD 08/06/2024 7:17 AM [facility] Blood Venous blood specimen / Unknown Venipuncture / Unknown 08/06/2024 5:43 AM EST 08/06/2024 6:50 AM EST us Kanika HARRISON LAB BLOOD ORDERABLES Final Resul t [facility] [address] [place] [address], * Green LI heparin tube (08/05/2024 5:48 AM EST) Extra Tube Hold for add-ons. 08/05/2024 8:01 AM EST [facility] Comment:Auto resulted. Blood Venous blood specimen / Unknown Venipuncture / Unknown 08/05/2024 5:48 AM EST 08/05/2024 6:08 AM EST us Eric Norris MD LAB BLOOD ORDERABLES Final Result [facility] [address] [place] [address], [place] [phone] * Green NA heparin tube (08/05/2024 5:48 AM EST) Extra Tube Hold for add-ons. 08/05/2024 8:01 AM EST [facility] Comment:Auto resulted. Blood Venous blood specimen / Unknown 08/05/2024 5:48 AM EST 08/05/2024 6:07 AM EST us Eric Norris MD LAB BLOOD ORDERABLES Final Result Performing Organization Address [facility]/ZIP Co de Phone Number [facility] [address] [place] [address], [place] [phone] * Magnesium (08/05/2024 5:48 AM EST) Magnesium 2.5 1.9 - 2.6 mg/dL LAB CHEMISTRY METHOD 08/05/2024 6:39 AM EST [facility] Blood Venous blood specimen / Unknown Venipuncture / Unknown 08/05/2024 5:48 AM EST 08/05/2024 6:04 AM EST us Eric Norris MD LAB BLOOD ORDERABLES Final Result Performing Organization Address City/[facility]/ZIP Co de Phone Number [facility] [address] [place] [address], * (ABNORMAL) Venous blood gas (08/05/2024 5:48 AM EST) pH, Donnell 7.27(L) 7.32 - 7.42 pH 08/05/2024 6:15 AM [facility] pCO2, Donnell 55(H) 41 - 51 mmHg 08/05/2024 6:15 AM [facility] pO2, Donnell 65(H) 25 - 40 mmHg 08/05/2024 6:15 AM [facility] HCO3, Venous 22.8 22.0 - 26.0 mmol/L 08/05/2024 6:15 AM [facility] O2 Sat, Donnell 92.8 % 08/05/2024 6:15 AM [facility] Base Excess, Donnell -2.5(L) -2.0 - 2.0 mmol/L 08/05/2024 6:15 AM [facility] Blood Venous blood specimen / Unknown Venipuncture / Unknown 08/05/2024 5:48 AM EST 08/05/2024 6:03 AM EST Eric Norris MD LAB BLOOD ORDERABLES Final Result [facility] [address] [place] [address], * XR Chest 1 View (08/04/2024 8:33 [...] Signed Date: 08/05/2024 08:23 ET Workstation ID: [id number] Transcribed By: Self Edit Transcribed Date: 08/05/2024 [...] Signed Date: 08/05/2024 08:23 ET Workstation ID: [id number] Transcribed By: Self Edit Transcribed Date: 08/05/2024 08:21 ET us Eric Norris MD IMG XR PROCEDURES Final Res ult * 12-Lead ECG (08/04/2024 8:33 PM EST) Ventricular Rate ECG 115 BPM GEMUSE Atrial Rate 115 BPM GEMUSE P-R Interval 138 ms GEMUSE QRS Duration 128 ms GEMUSE Q-T Interval 336 ms GEMUSE QTc 464 ms GEMUSE P Wave [place] 82 degrees GEMUSE R [place] 79 degrees GEMUSE T [place] 60 degrees GEMUSE ECG Interpretation Poor data [...] molecular study (08/04/2024 8:12 PM EST) Pathologist [facility] Adenovirus Detection by PCR Not Detected Not Detected LAB MICROBIOLOGY METHOD 08/04/2024 9:20 PM EST [facility] Influenza B PCR Not Detected Not Detected LAB MICROBIOLOGY METHOD 08/04/2024 9:20 PM EST [facility] Coronavirus 229E Not Detected Not Detected LAB MICROBIOLOGY METHOD 08/04/2024 9:20 PM EST [facility] Coronavirus HKU1 Not Detected Not Detected LAB MICROBIOLOGY METHOD 08/04/2024 9:20 PM EST [facility] Coronavirus OC43 Not Detected Not Detected LAB MICROBIOLOGY METHOD 08/04/2024 9:20 PM EST [facility] Coronavirus NL63 Not Detected Not Detected LAB MICROBIOLOGY METHOD 08/04/2024 9:20 PM EST [facility] Parainfluenza Virus 1 Not Detected Not Detected LAB MICROBIOLOGY METHOD 08/04/2024 9:20 PM EST [facility] Parainfluenza Virus 2 Not Detected Not Detected LAB MICROBIOLOGY METHOD 08/04/2024 9:20 PM EST [facility] Parainfluenza Virus 3 Not Detected Not Detected LAB MICROBIOLOGY METHOD 08/04/2024 9:20 PM [facility] Parainfluenza Virus 4 Not Detected Not Detected LAB MICROBIOLOGY METHOD 08/04/2024 9:20 PM EST [facility] RSV PCR Not Detected Not Detected LAB MICROBIOLOGY METHOD 08/04/2024 9:20 PM EST [facility] Human Metapneumovirus A and B Not Detected Not Detected LAB MICROBIOLOGY METHOD 08/04/2024 9:20 PM EST [facility] Rhinovirus/Entero virus Not Detected Not Detected LAB MICROBIOLOGY METHOD 08/04/2024 9:20 PM EST [facility] Bordetella pertussis Not Detected Not Detected LAB MICROBIOLOGY METHOD 08/04/2024 9:20 PM EST [facility] Bordetella parapertussis Not Detected Not Detected LAB MICROBIOLOGY METHOD 08/04/2024 9:20 PM [facility] Influenza A H3 Detected(A ) Not Detected LAB MICROBIOLOGY METHOD 08/04/2024 9:20 PM [facility] Mycoplasma pneumo by PCR Not Detected Not Detected LAB MICROBIOLOGY METHOD 08/04/2024 9:20 PM [facility] Chlamydia pneumoniae Not Detected Not Detected LAB MICROBIOLOGY METHOD 08/04/2024 9:20 PM [facility] SARS COV-2 Not Detected Not Detected LAB MICROBIOLOGY METHOD 08/04/2024 9:20 PM [facility] Swab Both anterior nares / Unknown Non-blood Collection / Unknown 08/04/2024 8:12 PM EST 08/04/2024 8:23 PM EST [facility] - 08/04/2024 9:20 PM EST Testing was performed using the [employer] Respiratory Pathogen PCR Assay. All results must [...] that are below the limit of detection. us González HARRISON LAB MICROBIOLOGY - GENERAL O RDERABLES Final Result [facility] [address] [place] [address], * Procalcitonin (08/04/2024 8:12 PM EST) Procalcitonin 0.08 <=0.16 ng/mL LAB CHEMISTRY METHOD 08/05/2024 12:23 PM EST [facility] Blood Venous blood specimen / Unknown Venipuncture / Unknown 08/04/2024 8:12 PM EST 08/04/2024 8:23 PM EST Narrative [facility] - 08/05/2024 12:23 PM [...] Norris MD LAB BLOOD ORDERABLES Final Result [facility] [address] [place] [address], * CA CRITICAL CARE EACH ADDITIONAL 30 MINUTES, CA CRITICAL CARE EACH ADDITIONAL 30 MINUTES (08/04/2024 7:45 PM EST) Narrative Hugh Ospina, DO - 08/04/2024 7:45 PM EST HUNTER Iniguez ? 08/04/2024 ??9:49 PM Critical Care Performed by: HUNTER Iniguez Authorized by: Hugh Ospina, DO ?? Critical care provider statement: ??Critical [...] PM EST Narrative 06/29/2023 6:57 AM EST [facility] Diagnostic Imaging Department [address] [place], [place] [id number] Patient: ??ANNA JACKSON ?/Age/Sex: 1960 - 63 - M Unit#: ??[id number] ? Location/Status: ??SPDICATLS/REG CLI ? Mnemonic/Ordering Site: [...] reconstruction) and/or AEC (automated exposure control) COMPARISON: [id number]. FINDINGS: Lack of intravenous contrast limits evaluation [...] Procedure Note Jhonny Delong MD - 08/10/2023 [facility] Diagnostic Imaging Department [address] [place] [id number] Patient: ANNA JACKSON Jennifer /Age/Sex: 1960 - 63 - M Unit#: [id number] Location/Status: SPDICATLS/REG CLI Mnemonic/Ordering Site: [facility] Ordering Physician: SHARIF ALY MD CT Lung Screening Low Dose - 06/15/23 - 1351 Report Status:Signed Indication: Greater than 20 total pack-year smoking history,asymptomatic former smoker Technique: Low-dose CT scan of the chest obtained as a lung cancerscreening study. Multiplanar reformatted images were obtained. Dose reductiontechnique: ASIR (Adaptive statistical iterative reconstruction) and/or AEC(automated exposure control) COMPARISON: [id number]. 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
== END 2024-10-19 13:55 | disposition home or self-care (01) ==
LOC: HO.HCS 13:24
PROVIDERS: PCP Internal Medicine; Visit Provider Internal Medicine
DX: I25.10 Atherosclerotic heart disease of native coronary artery without angina pectoris (principal); I10 Essential (primary) hypertension; E78.5 Hyperlipidemia, unspecified; F17.200 Nicotine dependence, unspecified, uncomplicated; E66.01 Morbid (severe) obesity due to excess calories; J44.9 Chronic obstructive pulmonary disease, unspecified; Z01.810 Encounter for preprocedural cardiovascular examination
CPT/HCPCS: 93010; 99214; G2211

== ENCOUNTER → 2024-10-19 13:24 | Outpatient (BNVA) | payer MEDICARE, MEDICAID, SELFPAY | PROVIDERS: PCP Internal Medicine; Visit Provider Internal Medicine | DX: Z01.810 Encounter for preprocedural cardiovascular examination (principal); I25.10 Atherosclerotic heart disease of native coronary artery without angina pectoris; I10 Essential (primary) hypertension; E78.5 Hyperlipidemia, unspecified; E66.01 Morbid (severe) obesity due to excess calories; J44.9 Chronic obstructive pulmonary disease, unspecified; I45.2 Bifascicular block; Z68.31 Body mass index [BMI] 31.0-31.9, adult | CPT/HCPCS: 93005; 99212 ==

== ENCOUNTER 2024-10-25 14:19 | Outpatient (AMB) | payer MEDICARE, MEDICAID, SELFPAY ==
[2024-10-25 14:29] VITALS: BP 118/66; PULSE 94; O2SAT 92; BMI 31.2
--- NOTE | 2024-10-25 14:29 | MHC.OFFVIS ---
Vital Signs 10/25/24 14:29 Height 6 ft Weight 230 lb BMI 31.2 BP 118/66 Blood Pressure Location Lt brachial Position Sitting Pulse 94 Pulse Source Pulse Oximeter Pulse Oximetry (%) 92 Oxygen Delivery Method Room Air Intake Visit Reasons: 6 mo f/u Intake Note: ESTABLISHED PATIENT for GERD + constipation mgmt. 6 mos. Chief Complaint; [employer] Required: No Accompanied by: Spouse Allergies No Known Allergies Allergy (Verified 10/25/24 14:32) HPI HPI 6 mo f/u: Details: LAST VISIT: Constipation GERD without esophagitis Plan Continue pantoprazole. Avoid dietary triggers and late night snacking. Staying upright for minimum 3 hours after meals discussed with patient. Continue taking bowel regimen. Patient is tolerating Dulcolax and Colace well. Increase fluid intake and activity to promote better bowel motility. Low-salt, low-fat, low carb and high-protein diet recommended. Patient will follow-up in our office in 6 months, sooner on as needed basis. He is agreeable to this plan and verbalizes understanding of instructions. He was given the opportunity to ask questions and all questions answered. ? Thank you for allowing me to participate in his care Medications Refilled bisacodyl (Gentle Laxative (bisacodyl)) 10 mg (2 x 5 mg) PO BEDTIME 180 tabs 3RF docusate sodium 100 mg PO BEDTIME 90 caps 3RF K59.00 Discontinued famotidine take one tablet before going to bed Discontinued Reason: Patient no longer taking 20 mg PO BEDTIME 90 days 90 tabs 1RF K21.9 TODAY'S VISIT Patient is here today for follow-up. Patient reports that he has been doing well. Denies any GI concerning symptoms. He continues to follow with cardiology, pulmonology and Urology. Patient is due to have another Cologuard. Notification was sent to his house as well. Will set that up for him. Due to multiple comorbidities patient should not undergo anesthesia. Last Cologuard was negative. Patient denies any melena, hematochezia. Reports that he is moving his bowels well with stool softener and Dulcolax. Symptoms of acid reflux are suppressed with pantoprazole. [facility] Medical History Allergic rhinitis Overweight (BMI 25.0-29.9) Constipation Atherosclerotic cardiovascular disease Swelling of left lower extremity Vitamin B12 deficiency GERD without esophagitis Anterior chest wall pain Mixed hyperlipidemia Primary insomnia Urinary frequency Neuropathy Vitamin D deficiency Osteoarthritis Lumbar degenerative disc disease Impaired fasting glucose Benign essential hypertension COPD (chronic obstructive pulmonary disease) Headache Epidermoid cyst Surgical History History of total right knee replacement History of cardiac cath History of colonoscopy Family History Father Colon cancer Mother Medical history unknown Social History Housing: Apartment Alcohol intake: former Patient Tobacco Use Status: Former Tobacco user Tobacco use type: Cigarette Cigarettes Per Day: 15 Years Smoked: 30 +/- e-Cigarette/Vaping Use: Never Used Second Hand Smoke Exposure: Yes service: No Current occupational status: disabled Cognitive needs: No Hearing needs: Yes Vision needs: Yes (reading glasses) Review of Systems Const Denies weight gain and Denies weight loss ENT Reports no additional complaints, Denies dysphagia and Denies odynophagia Card Reports no additional complaints Resp Reports no additional complaints GI Denies abdominal pain, Denies belching, Denies melena, Denies bloating, Denies change in bowel habits, Denies dysphagia, Denies excessive flatus, Denies dyspepsia, Reports heartburn (Occasional), Denies diarrhea, Denies loose stools, Denies nausea, Denies odynophagia and Denies vomiting Reports no additional complaints Musc Reports no additional complaints Neuro Reports no additional complaints Psych Reports no additional complaints Endo Reports no additional complaints Physical Exam Vital Signs: Last Vital Signs Pulse 94 10/25/24 14:29 BP 118/66 10/25/24 14:29 Pulse Ox 92 10/25/24 14:29 Oxygen Delivery Method Room Air 10/25/24 14:29 BMI result Body Mass Index 31.2 Const General: no acute distress Nutritional Appearance: obese Orientation/consciousness: patient oriented x3 Resp Effort & Inspection: normal respiratory effort, able to speak in complete sentences, no tracheal deviation and symmetric chest movement Auscultation: clear to auscultation bilaterally Cardio Rate: regular rate Heart sounds: S1 normal heart sound present and S2 normal heart sound present GI Inspection: Yes normal to inspection, No distended and Yes obesity Palpation (GI): Soft to palpation, not firm, nontender and No hepatosplenomegaly present Auscultation: normal bowel sounds General: Yes no CVA tenderness Back/Spine/Pelvis Back: no CVA tenderness Skin General skin exam: elasticity normal, turgor normal and dry skin Neuro General: patient oriented x3 Psych Appearance: grossly normal Mental Status: mental status grossly normal Assessment & Plan Assessment & Plan (1) Constipation: Code(s): K59.00 - Constipation, unspecified Category: Medical Qualifiers: Constipation type: chronic idiopathic constipation Qualified Code(s): K59.04 - Chronic idiopathic constipation (2) GERD without esophagitis: Code(s): K21.9 - Gastro-esophageal reflux disease without esophagitis Category: Medical Plan Cologuard order placed. If positive we will have to discuss this with his ethologist as patient was told before that he should not have anesthesia unless it is emergency surgery. His symptoms of reflux are controlled with pantoprazole. He can continue that. Continue regimen for constipation with Dulcolax and stool softener. Patient will follow-up in our office as needed. Patient is agreeable to this plan and verbalizes understanding of instructions. He was given the opportunity to ask questions and all questions answered. Thank you for allowing me to participate in his care Medications: New pantoprazole 40 mg PO DAILY 90 tabs 5RF Refilled bisacodyl (Gentle Laxative (bisacodyl)) 10 mg (2 x 5 mg) PO BEDTIME 180 tabs 5RF docusate sodium 100 mg PO BEDTIME 90 caps 5RF K59.00 - Constipation, unspecified Coding Level of Care Code Est Pt Level 3 (69604) Diagnoses Chronic idiopathic constipation K59.04 Constipation type: chronic idiopathic constipation GERD without esophagitis K21.9 Time Spent (min) 25 Comment 15 minutes spent with patient and additional 10 minutes spent reviewing his records
--- OUTSIDE RECORDS SUMMARY | 2024-10-25 17:14 | XMS_ITS | Clinical Summary ---
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 07/11/2024 Assessment & [...] Acute on chronic hypoxic res piratory failure ([facility] V24, [facility] V28) 05/15/2024 COPD exacerbation ([facility] V24, [facility] V28) 04/2024 Inclusion cyst 05/08/2019 Lymphadenopathy 11/18/2017 [...] 08/10/2017 Chronic obstructive pulmonar y disease (COPD) ([facility] V24, [facility] V28) 02/11/2017 Resolved Problems Problem Noted Date Diagnosed Date Resolved Date Chest pain 07/03/2024 07/11/2024 Encounters Date Type Department Care Team Description 10/03/2024 1:00 PM EDT Consult Pulmonology - [address] [place] [phone] Meg Sheldon MD Chronic obstructive pulmonary disease, unspecified COPD type ([facility] V24, [facility] V28) (Primary Dx); Acute on chronic hypoxic respiratory failure ([facility] V24, [facility] V28) 09/06/2024 2:15 PM EST Office Visit Pulmonolgy - [place] [address] [facility] [address] [place] [phone] Jayshree Gibbs MD Acute on chronic hypoxic respiratory failure ([facility] V24, [facility] V28) (Primary Dx); Chronic obstructive pulmonary disease, unspecified COPD type ([facility] V24, [facility] V28) 08/22/2024 Telephone Lung Screening Program - [place] [address] [facility] [address] [place] [phone] Joie Craig MA 08/04/2024 7:50 PM EST - 08/07/2024 4:08 PM EST Hospital Encounter [facility] [address] [place] [phone] Eric Norris MD Rasul, Yar M, MD Surendran, Anupama, MD COPD exacerbation ([facility] V24, [facility] V28) (Primary Dx); Influenza A; Chronic obstructive pulmonary disease with acute exacerbation ([facility] V24, [facility] V28) Discharge Disposition: Home or Self Care from Last 3 Months Immunizations Name Administration Dates Next Due Influenza Quadravalent, MDCK , 0.5ml, preservative free (Flucelvax) 6mo and older 04/28/2022 Surgical History Surgery Date Site/Laterality Comments KNEE SURGERY PROCEDURE: HISTORICAL KNEE SURGERY DENTAL SURGERY PROCEDURE: MD UNLISTED PROCEDURE DENTOALVEOLAR STRUCTURES Medical History Medical History Date Comments Arthritis DX:Arthritis Cholelithiasis 08/10/2017 DX:Cholelithiasi s Diverticulosis 08/10/2017 DX:Diverticulosi s Hyperlipidemia 08/10/2017 DX:Hyperlipidemi a Tobacco use 02/11/2017 DX:Tobacco use Chronic obstructive pulmonar y disease (COPD) ([facility] V24, [facility] V28) 02/11/2017 DX:Chronic obstructi ve pulmonary disease [...] 2:45 PM EDT Office Visit Pulmonolgy - [place] [address] [facility] [address] [place] [phone] Jayshree Gibbs MD 175 [facility] [address] [place] [address] Health Maintenance Due Date Last Done Comments [...] THERAPY, ADULT Routine 08/04/2024 8:01 PM EST MD CRITICAL CARE EACH ADDITIONAL 30 MINUTES Routine 08/04/2024 7:45 PM EST MD CRITICAL CARE EACH ADDITIONAL 30 MINUTES Routine [...] LAB HEMETOLOGY METHOD 08/07/2024 8:32 AM EST [facility] LAB RBC 4.40(L) 4.50 - 5.50 M/[facility] LAB HEMETOLOGY METHOD 08/07/2024 8:32 AM [facility] Hemoglobin 13.4(L) 13.5 - 17.5 g/dL LAB HEMETOLOGY METHOD 08/07/2024 8:32 AM [facility] Hematocrit 40.6(L) 42.0 - 54.0 % LAB HEMETOLOGY METHOD 08/07/2024 8:32 AM [facility] MCV 92.5 79.0 - 98.0 FL LAB HEMETOLOGY METHOD 08/07/2024 8:32 AM [facility] MCH 30.5 27.0 - 32.0 pcg LAB HEMETOLOGY METHOD 08/07/2024 8:32 AM [facility] MCHC 33.0 32.0 - 37.0 g/dL LAB HEMETOLOGY METHOD 08/07/2024 8:32 AM [facility] RDW 12.5 11.0 - 15.0 % LAB HEMETOLOGY METHOD 08/07/2024 8:32 AM [facility] Platelets 232 130 - 400 K/mcL LAB HEMETOLOGY METHOD 08/07/2024 8:32 AM [facility] MPV 9.4 7.0 - 11.0 FL LAB HEMETOLOGY METHOD 08/07/2024 8:32 AM [facility] NRBC 0.0 <1.0 % LAB HEMETOLOGY METHOD 08/07/2024 8:32 AM [facility] NRBC Absolute 0.00 <0.10 K/mcL LAB HEMETOLOGY METHOD 08/07/2024 8:32 AM [facility] Neutrophils Relative 80.6 % LAB HEMETOLOGY METHOD 08/07/2024 8:32 AM [facility] Comment:This is an appended report. These results have been appended to a previously preliminary verified report. Lymphocytes Relative 11.8 % LAB HEMETOLOGY METHOD 08/07/2024 8:32 AM [facility] Comment:This is an appended report. These results have been appended to a previously preliminary verified report. Monocytes Relative 7.2 % LAB HEMETOLOGY METHOD 08/07/2024 8:32 AM [facility] Comment:This is an appended report. These results have been appended to a previously preliminary verified report. Eosinophils Relative 0.0 % LAB HEMETOLOGY METHOD 08/07/2024 8:32 AM [facility] Comment:This is an appended report. These results have been appended to a previously preliminary verified report. Basophils Relative 0.0 % LAB HEMETOLOGY METHOD 08/07/2024 8:32 AM [facility] Comment:This is an appended report. These results have been appended to a previously preliminary verified report. Immature Granulocytes Relative 0.4 % LAB HEMETOLOGY METHOD 08/07/2024 8:32 AM [facility] Comment:This is an appended report. These results have been appended to a previously preliminary verified report. Neutrophils Absolute 6.00 1.50 - 7.00 K/mcL LAB HEMETOLOGY METHOD 08/07/2024 8:32 AM [facility] Comment:This is an appended report. These results have been appended to a previously preliminary verified report. Lymphocytes Absolute 0.88(L) 1.00 - 5.00 K/mcL LAB HEMETOLOGY METHOD 08/07/2024 8:32 AM [facility] Comment:This is an appended report. These results have been appended to a previously preliminary verified report. Monocytes Absolute 0.54 0.20 - 1.00 K/mcL LAB HEMETOLOGY METHOD 08/07/2024 8:32 AM [facility] Comment:This is an appended report. These results have been appended to a previously preliminary verified report. Eosinophils Absolute 0.00 0.00 - 0.50 K/mcL LAB HEMETOLOGY METHOD 08/07/2024 8:32 AM [facility] Comment:This is an appended report. These results have been appended to a previously preliminary verified report. Basophils Absolute 0.00 0.00 - 0.20 K/mcL [facility] 08/07/2024 8:32 AM EST [facility] Comment:This is an appended report. These results have been appended to a previously preliminary verified report. Immature Granulocytes Absolute 0.03 0.00 - 0.03 K/mcL LAB [facility] 08/07/2024 8:32 AM EST [facility] Comment:This is an appended report. These results have been appended to a previously preliminary verified report. Blood Venous blood specimen / Unknown Venipuncture / Unknown 08/07/2024 6:15 AM EST 08/07/2024 7:04 AM EST us Bill Cervantes MD LAB BLOOD ORDERABLES Final Resul t [facility] [address] [place] [address], [place] [phone] * (ABNORMAL) Basic metabolic panel (08/07/2024 6:15 AM EST) Only the most recent of4 resultswithin the time period is included. Sodium 137 133 - 145 mmol/L LAB CHEMISTRY METHOD 08/07/2024 7:53 AM [facility] Potassium 4.7 3.5 - 5.5 mmol/L LAB CHEMISTRY METHOD 08/07/2024 7:53 AM [facility] Chloride 103 96 - 110 mmol/L LAB CHEMISTRY METHOD 08/07/2024 7:53 AM [facility] CO2 31 21 - 32 mmol/L LAB CHEMISTRY METHOD 08/07/2024 7:53 AM [facility] Anion Gap 3 3 - 11 LAB CHEMISTRY METHOD 08/07/2024 7:53 AM [facility] Glucose 101(H) 70 - 100 mg/dL LAB CHEMISTRY METHOD 08/07/2024 7:53 AM EST [facility] BUN 23 5 - 25 mg/dL LAB CHEMISTRY METHOD 08/07/2024 7:53 AM [facility] Creatinine 0.99 0.70 - 1.30 mg/dL LAB CHEMISTRY METHOD 08/07/2024 7:53 AM [facility] eGFR 84 >=60 mL/min/1. 73m2 LAB CHEMISTRY METHOD 08/07/2024 7:53 AM [facility] Comment:Calculation based on the??Chronic Kidney Disease Epidemiology Collaboration (CKD-EPI) equation refit??without adjustment for race. BUN/Creatinine Ratio 23.2 LAB CHEMISTRY METHOD 08/07/2024 7:53 AM [facility] Calcium 9.2 8.5 - 10.5 mg/dL LAB CHEMISTRY METHOD 08/07/2024 7:53 AM [facility] Blood Venous blood specimen / Unknown Venipuncture / Unknown 08/07/2024 6:15 AM EST 08/07/2024 7:04 AM EST us Bill Cervantes MD LAB BLOOD ORDERABLES Final Resul t [facility] [address] [place] [address], * (ABNORMAL) Complete blood count (08/06/2024 5:43 AM EST) Only the most recent of2 resultswithin the time period is included. WBC 7.8 4.8 - 10.8 K/mcL LAB HEMETOLOGY METHOD 08/06/2024 7:17 AM [facility] RBC 4.40(L) 4.50 - 5.50 M/mcL LAB HEMETOLOGY METHOD 08/06/2024 7:17 AM [facility] Hemoglobin 13.8 13.5 - 17.5 g/dL LAB HEMETOLOGY METHOD 08/06/2024 7:17 AM EST [facility] Hematocrit 42.1 42.0 - 54.0 % LAB HEMETOLOGY METHOD 08/06/2024 7:17 AM [facility] MCV 95.0 79.0 - 98.0 FL LAB HEMETOLOGY METHOD 08/06/2024 7:17 AM [facility] MCH 31.2 27.0 - 32.0 pcg LAB HEMETOLOGY METHOD 08/06/2024 7:17 AM EST [facility] MCHC 32.8 32.0 - 37.0 g/dL LAB HEMETOLOGY METHOD 08/06/2024 7:17 AM [facility] RDW 12.8 11.0 - 15.0 % LAB HEMETOLOGY METHOD 08/06/2024 7:17 AM [facility] Platelets 233 130 - 400 K/mcL LAB HEMETOLOGY METHOD 08/06/2024 7:17 AM EST [facility] MPV 9.4 7.0 - 11.0 FL LAB HEMETOLOGY METHOD 08/06/2024 7:17 AM [facility] NRBC 0.0 <1.0 % LAB HEMETOLOGY METHOD 08/06/2024 7:17 AM [facility] NRBC Absolute 0.00 <0.10 K/mcL LAB HEMETOLOGY METHOD 08/06/2024 7:17 AM [facility] Blood Venous blood specimen / Unknown Venipuncture / Unknown 08/06/2024 5:43 AM EST 08/06/2024 6:50 AM EST us Kanika HARRISON LAB BLOOD ORDERABLES Final Resul t [facility] [address] [place] [address], * Green LI heparin tube (08/05/2024 5:48 AM EST) Extra Tube Hold for add-ons. 08/05/2024 8:01 AM EST [facility] Comment:Auto resulted. Blood Venous blood specimen / Unknown Venipuncture / Unknown 08/05/2024 5:48 AM EST 08/05/2024 6:08 AM EST us Eric Norris MD LAB BLOOD ORDERABLES Final Result [facility] [address] [place] [address], [place] [phone] * Green NA heparin tube (08/05/2024 5:48 AM EST) Extra Tube Hold for add-ons. 08/05/2024 8:01 AM EST [facility] Comment:Auto resulted. Blood Venous blood specimen / Unknown 08/05/2024 5:48 AM EST 08/05/2024 6:07 AM EST us Eric Norris MD LAB BLOOD ORDERABLES Final Result Performing Organization Address [facility]/ZIP Co de Phone Number [facility] [address] [place] [address], [place] [phone] * Magnesium (08/05/2024 5:48 AM EST) Magnesium 2.5 1.9 - 2.6 mg/dL LAB CHEMISTRY METHOD 08/05/2024 6:39 AM EST [facility] Blood Venous blood specimen / Unknown Venipuncture / Unknown 08/05/2024 5:48 AM EST 08/05/2024 6:04 AM EST us Eric Norris MD LAB BLOOD ORDERABLES Final Result Performing Organization Address City/[facility]/ZIP Co de Phone Number [facility] [address] [place] [address], * (ABNORMAL) Venous blood gas (08/05/2024 5:48 AM EST) pH, Donnell 7.27(L) 7.32 - 7.42 pH 08/05/2024 6:15 AM [facility] pCO2, Donnell 55(H) 41 - 51 mmHg 08/05/2024 6:15 AM [facility] pO2, Donnell 65(H) 25 - 40 mmHg 08/05/2024 6:15 AM [facility] HCO3, Venous 22.8 22.0 - 26.0 mmol/L 08/05/2024 6:15 AM [facility] O2 Sat, Donnell 92.8 % 08/05/2024 6:15 AM [facility] Base Excess, Donnell -2.5(L) -2.0 - 2.0 mmol/L 08/05/2024 6:15 AM [facility] Blood Venous blood specimen / Unknown Venipuncture / Unknown 08/05/2024 5:48 AM EST 08/05/2024 6:03 AM EST Eric Norris MD LAB BLOOD ORDERABLES Final Result [facility] [address] [place] [address], * XR Chest 1 View (08/04/2024 8:33 [...] Signed Date: 08/05/2024 08:23 ET Workstation ID: [id number] Transcribed By: Self Edit Transcribed Date: 08/05/2024 [...] Signed Date: 08/05/2024 08:23 ET Workstation ID: [id number] Transcribed By: Self Edit Transcribed Date: 08/05/2024 08:21 ET us Eric Norris MD IMG XR PROCEDURES Final Res ult * 12-Lead ECG (08/04/2024 8:33 PM EST) Ventricular Rate ECG 115 BPM GEMUSE Atrial Rate 115 BPM GEMUSE P-R Interval 138 ms GEMUSE QRS Duration 128 ms GEMUSE Q-T Interval 336 ms GEMUSE QTc 464 ms GEMUSE P Wave Laverne 82 degrees GEMUSE R [place]verne 79 degrees GEMUSE T Laverne 60 degrees GEMUSE ECG Interpretation Poor data [...] study (08/04/2024 8:12 PM EST) Pathologist [facility] Adenovirus Detection by PCR Not Detected Not Detected LAB MICROBIOLOGY METHOD 08/04/2024 9:20 PM EST [facility] Influenza B PCR Not Detected Not Detected LAB MICROBIOLOGY METHOD 08/04/2024 9:20 PM EST [facility] Coronavirus 229E Not Detected Not Detected LAB MICROBIOLOGY METHOD 08/04/2024 9:20 PM EST [facility] Coronavirus HKU1 Not Detected Not Detected LAB MICROBIOLOGY METHOD 08/04/2024 9:20 PM EST [facility] Coronavirus OC43 Not Detected Not Detected LAB MICROBIOLOGY METHOD 08/04/2024 9:20 PM EST [facility] Coronavirus NL63 Not Detected Not Detected LAB MICROBIOLOGY METHOD 08/04/2024 9:20 PM EST [facility] Parainfluenza Virus 1 Not Detected Not Detected LAB MICROBIOLOGY METHOD 08/04/2024 9:20 PM EST [facility] Parainfluenza Virus 2 Not Detected Not Detected LAB MICROBIOLOGY METHOD 08/04/2024 9:20 PM EST [facility] Parainfluenza Virus 3 Not Detected Not Detected LAB MICROBIOLOGY METHOD 08/04/2024 9:20 PM [facility] Parainfluenza Virus 4 Not Detected Not Detected LAB MICROBIOLOGY METHOD 08/04/2024 9:20 PM EST [facility] RSV PCR Not Detected Not Detected LAB MICROBIOLOGY METHOD 08/04/2024 9:20 PM EST [facility] Human Metapneumovirus A and B Not Detected Not Detected LAB MICROBIOLOGY METHOD 08/04/2024 9:20 PM EST [facility] Rhinovirus/Entero virus Not Detected Not Detected LAB MICROBIOLOGY METHOD 08/04/2024 9:20 PM EST [facility] Bordetella pertussis Not Detected Not Detected LAB MICROBIOLOGY METHOD 08/04/2024 9:20 PM EST [facility] Bordetella parapertussis Not Detected Not Detected LAB MICROBIOLOGY METHOD 08/04/2024 9:20 PM [facility] Influenza A H3 Detected(A ) Not Detected LAB MICROBIOLOGY METHOD 08/04/2024 9:20 PM [facility] Mycoplasma pneumo by PCR Not Detected Not Detected LAB MICROBIOLOGY METHOD 08/04/2024 9:20 PM [facility] Chlamydia pneumoniae Not Detected Not Detected LAB MICROBIOLOGY METHOD 08/04/2024 9:20 PM [facility] SARS COV-2 Not Detected Not Detected LAB MICROBIOLOGY METHOD 08/04/2024 9:20 PM [facility] Swab Both anterior nares / Unknown Non-blood Collection / Unknown 08/04/2024 8:12 PM EST 08/04/2024 8:23 PM EST [facility] - 08/04/2024 9:20 PM EST Testing was performed using the [employer] Respiratory Pathogen PCR Assay. All results must [...] MICROBIOLOGY - GENERAL O RDERABLES Final Result [facility] [address] [place] [address], * Procalcitonin (08/04/2024 8:12 PM EST) Procalcitonin [...] Final Result [facility] [address] [place] [address], * MD CRITICAL CARE EACH ADDITIONAL 30 MINUTES, MD CRITICAL CARE EACH ADDITIONAL 30 MINUTES (08/04/2024 [...] PM EST Narrative 06/29/2023 6:57 AM EST [facility] Diagnostic Imaging Department [address] [place], [place] [id number] Patient: ??ANNA JACKSON ?/Age/Sex: 1960 - 63 - M Unit#: ??[id number] ? Location/Status: ??SPDICATLS/REG CLI ? Mnemonic/Ordering Site: [...] reconstruction) and/or AEC (automated exposure control) COMPARISON: [id number]. FINDINGS: Lack of intravenous contrast limits evaluation [...] Procedure Note Jhonny Patel MD - 08/10/2023 [facility] Diagnostic Imaging Department [address] [place] [id number] Patient: ANNA JACKSON Jennifer /Age/Sex: 1960 - 63 - M Unit#: [id number] Location/Status: SPDICATLS/REG CLI Mnemonic/Ordering Site: [facility] Ordering Physician: SHARIF ALY MD CT Lung Screening Low Dose - 06/15/23 - 1351 Report Status:Signed Indication: Greater than 20 total pack-year smoking history,asymptomatic former smoker Technique: Low-dose CT scan of the chest obtained as a lung cancerscreening study. Multiplanar reformatted images were obtained. Dose reductiontechnique: ASIR (Adaptive statistical iterative reconstruction) and/or AEC(automated exposure control) COMPARISON: [id number]. 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
== END 2024-10-25 15:34 | disposition home or self-care (01) ==
LOC: HO.HGI 14:20
PROVIDERS: PCP Internal Medicine; Visit Provider Nurse Practitioner Family
DX: K59.04 Chronic idiopathic constipation (principal); K21.9 Gastro-esophageal reflux disease without esophagitis
CPT/HCPCS: 99213

== ENCOUNTER → 2024-10-25 14:19 | Outpatient (BNVA) | payer MEDICARE, MEDICAID, SELFPAY | PROVIDERS: PCP Internal Medicine; Visit Provider Nurse Practitioner Family | DX: K21.9 Gastro-esophageal reflux disease without esophagitis (principal); K59.04 Chronic idiopathic constipation | CPT/HCPCS: 99212 ==

== ENCOUNTER 2024-12-23 09:15 | Outpatient (AMB) | payer MEDICARE, MEDICAID, SELFPAY ==
--- NOTE | 2024-12-23 09:16 | AM.OFFWIN_ITS ---
Intake Vital Signs 12/23/24 09:17 Height 6 ft Weight 230 lb BMI 31.2 BP 102/60 Blood Pressure Location Lt brachial Position Sitting Respiration 18 Pulse 101 H Pulse Source Pulse Oximeter Temp 98.0 F Temp Source Oral Pulse Oximetry (%) 91 L Oxygen Delivery Method Room Air Intake Visit Reasons: EP-burning throat Intake Note: Pt is here today c/o burning in throat due to inhaler ?thrush Patient Tobacco Use Status: Current everyday Tobacco user Allergies No Known Allergies Allergy (Verified 12/23/24 09:17) HPI HPI Comments History of Present Illness Details Toby landin presents with a burning sensation in his throat since last night after using Trelegy without rinsing as instructed. He reports using glycerin to alleviate the pain. The patient describes the current symptoms as similar to a previous episode he experienced approximately 3 months ago, for which he received treatment from a nurse at the clinic. Mr. landin denies fever, chills, or significant coughing, noting only an occasional dry cough once in a blue figueroa. He has been using Trelegy, an inh aled medication, but failed to rinse his mouth after use as recommended. The patient recalls a previous similar incident where he was prescribed a medication to take care of it, which involved a swish and swallow method. He requests a 15-day treatment course, suggesting familiarity with the condition and its management. The patient denies recent exposure to sick individuals and does not report any other associated symptoms or impact on daily functioning. He has not discontinued any treatments but demonstrates incomplete adherence to the post- inhalation rinsing instructions for Trelegy. [facility] Medical History (Updated 12/23/24 @ 09:36 by HUNTER Coles) Oral thrush Allergic rhinitis Overweight (BMI 25.0-29.9) Constipation Atherosclerotic cardiovascular disease Swelling of left lower extremity Vitamin B12 deficiency GERD without esophagitis Anterior chest wall pain Mixed hyperlipidemia Primary insomnia Urinary frequency Neuropathy Vitamin D deficiency Osteoarthritis Lumbar degenerative disc disease Impaired fasting glucose Benign essential hypertension COPD (chronic obstructive pulmonary disease) Headache Epidermoid cyst Surgical History History of total right knee replacement History of cardiac cath History of colonoscopy Family History Father Colon cancer Mother Medical history unknown Social History Housing: Apartment Alcohol intake: former Patient Tobacco Use Status: Current everyday Tobacco user Tobacco use type: Cigarette Cigarettes Per Day: 15 Years Smoked: 30 +/- e-Cigarette/Vaping Use: Never Used Second Hand Smoke Exposure: Yes service: No Current occupational status: disabled Cognitive needs: No Hearing needs: Yes Vision needs: Yes (reading glasses) Physical Exam Vital Signs: Last Vital Signs Temp 98.0 F 12/23/24 09:17 Pulse 101 H 12/23/24 09:17 Resp 18 12/23/24 09:17 BP 102/60 12/23/24 09:17 Pulse Ox 91 L 12/23/24 09:17 Oxygen Delivery Method Room Air 12/23/24 09:17 BMI result Body Mass Index 31.2 Const General: cooperative, healthy appearing, no acute distress and alert Orientation/consciousness: patient oriented x3 Limitations: no limitations HEENT Head: Yes normal to inspection Ears: hearing grossly normal bilaterally General nose exam: Normal external nose present Throat: Yes tonsils normal, Yes uvula midline and Yes other (White patches in the posterior pharynx) Resp Effort & Inspection: normal respiratory effort and able to speak in complete sentences Cardio Rate: regular rate Skin General skin exam: no rashes or lesions noted Neuro General: patient oriented x3 Extrem General: Yes normal to inspection Assessment & Plan Assessment & Plan (1) Oral thrush: Code(s): B37.0 - Candidal stomatitis Plan: Oral Irritation: - Patient reports oral burning sensation since last night after using Trelegy inhaler without rinsing as instructed - Attempted to alleviate symptoms with glycerin - Examination reveals small tonsils with white spots in the posterior oropharynx - Patient recognizes similarity to previous episode treated 3 months ago - No fever, chills, or significant cough reported - Differential diagnosis includes medication-induced mucosal irritation, oral thrush, less likely strep given nml tonsil no hx and no erythema in posterior pharynx Plan: - Prescribe 7-day course of antifungal medication (likely nystatin oral suspension) - Instruct patient on proper use: swish and swallow method - Educate on importance of rinsing mouth after using Trelegy inhaler - Send prescription to [place] pharmacy Medications: Refilled nystatin Swish in the mouth and retain for as long as possible (several minutes) before swallowing. 100,000 units PO QID 60 mL 0RF 7 days B37.0 - Candidal stomatitis Coding Level of Care Code Est Pt Level 4 (49233) Diagnoses Oral thrush B37.0
[2024-12-23 09:17] VITALS: BP 102/60; PULSE 101; RESP 18; TEMP 36.7; O2SAT 91; BMI 31.2
== END 2024-12-23 09:39 | disposition home or self-care (01) ==
LOC: HO.HMCWIC 09:15
PROVIDERS: PCP Internal Medicine; Visit Provider Physician Assistant
DX: B37.0 Candidal stomatitis (principal)

== ENCOUNTER → 2024-12-23 09:15 | Outpatient (BNVA) | payer MEDICARE, MEDICAID, SELFPAY | PROVIDERS: PCP Internal Medicine; Visit Provider Physician Assistant | DX: B37.0 Candidal stomatitis (principal) | CPT/HCPCS: 99212 ==

== ENCOUNTER 2025-01-11 14:55 | Outpatient (AMB) | payer MEDICARE, MEDICAID, SELFPAY ==
--- OUTSIDE RECORDS SUMMARY | 2025-01-11 14:58 | XMS_ITS | Patient Health Record ---
Author Organization [facility] Address [address] [place] [address] Care Team Providers Care Network Liaison Name Role Phone Naif RUCKER, Street Primary Care Provider Rustam Vega Jr Unavailable [phone] Reason For Referral No Information Medications Medication SIG (Take, Route, Frequency, Duration) Notes Start Date End Date Status Advair HFA Active ProAir HFA Active Albuterol Active Gemfibrozil Active Lisinopril Active Colyte with Flavor Packs 240 GM As directed Orally Over the specified time. for 1 day(s) 08/30/2013 07/05/2024 Active Problems Problem Type SNOMED Code ICD Code Onset Dates Problem Status W/U Status Risk Notes Problem Colon cancer screening (V76.51) Active confirmed Plan Of Treatment Future Test Test Name Order Date COLONOSCOPY 08/30/2013 Insurance Providers Payer Name Payer Address Payer Phone Subscriber Number Group Number Insured Name Patient Relationship to Insured Coverage Start Date Coverage End Date [employer]/ 21-64 Yrs [address] [address] [place] [address] [id number] ANNA MCKEON Self - patient is the insured Medicare of [facility] [address] [place] [address] [id number] ANNA MCKEON Self - patient is the insured MEDICAID OF [facility] [address] [place] [address] [id number] ANNA MCKEON Self - patient is the insured Medical (General) History Medical History History ICD Code colonoscopy 11-07-2008 colon polyps asthma bronchitis elevated cholesterol hypertension Surgical History Surgery Date(Month/Year) knee arthroscopy
--- OUTSIDE RECORDS SUMMARY | 2025-01-11 14:58 | XMS_ITS | Clinical Summary ---
Author Organization [address] [facility] Address [address] [place] [address] Phone Care Team Providers Care Delivery Specialist Name Role Phone Sanju Disla MD Primary [...] EVERY 5 MINUTES MAX 3 DOSES Active isosorbide mononitrate (IMDUR) 30 mg 24 hr tablet Take 1 tablet (30 mg total) by mouth 1 (one) time each day. Active allopurinoL (ZYLOPRIM) 100 mg tablet Take 1 tablet (100 mg total) by mouth 1 (one) time each day. 03/03/20 24 Active potassium citrate (UROCIT-K) 10 mEq [...] mouth 1 (one) time each day. Active roflumilast (DALIRESP) 500 mcg tablet TAKE 1 TABLET DAILY 90 tablet 1 11/22/19 25 Active fluticasone-umecl idinium-vilantero l (Trelegy Ellipta) 200-62.5-25 mcg inhaler USE 1 INHALATION ORALLY DAILY 1 each 11 11/29/19 25 Active predniSONE (DELTASONE) 20 mg tablet Take 2 tablets (40 mg total) by mouth 1 (one) time each day for 4 days. 8 each 12/12/19 25 025 Active Problems Problem Noted Date Diagnosed Date Coronary artery disease invo lving [place] coronary artery of [place] heart without angina pectoris 07/11/2024 Assessment & [...] Acute on chronic hypoxic res piratory failure ([facility] V24, [facility] V28) 05/15/2024 COPD exacerbation ([facility]/HCC V24, [facility] V28) 04/2024 Inclusion cyst 05/08/2019 [...] 08/10/2017 Chronic obstructive pulmonar y disease (COPD) ([facility] V24, [facility] V28) 02/11/2017 Resolved Problems Problem Noted Date Diagnosed Date Resolved Date Chest pain 07/03/2024 07/11/2024 Encounters Date Type Department Care Team Description 12/25/2024 Telephone [facility] [address] [place] [id number] Hayes Han MD Scheduling Recall 12/11/2024 11:56 AM EDT - 12/11/2024 3:01 PM EDT Emergency [facility] Emergency [address] [place] [address] Philip Collins MD COPD exacerbation ([facility] V24, [facility] V28) (Primary Dx) Discharge Disposition: Home or Self Care 10/26/2024 Telephone Pulmonology - [address] [place] [address] Arabella Estrada MA from Last 3 Months Immunizations Name Administration Dates Next Due Influenza Quadravalent, MDCK , 0.5ml, preservative free (Flucelvax) 6mo and older 04/28/2022 Surgical History Surgery Date Site/Laterality Comments KNEE SURGERY PROCEDURE: HISTORICAL KNEE SURGERY DENTAL SURGERY PROCEDURE: [place] UNLISTED PROCEDURE DENTOALVEOLAR STRUCTURES Medical History Medical History Date Comments Arthritis DX:Arthritis Cholelithiasis 08/10/2017 DX:Cholelithiasi s Diverticulosis 08/10/2017 DX:Diverticulosi s Hyperlipidemia 08/10/2017 DX:Hyperlipidemi a Tobacco use 02/11/2017 DX:Tobacco use Chronic obstructive pulmonar y disease (COPD) ([facility] V24, [facility] V28) 02/11/2017 DX:Chronic obstructi ve pulmonary disease (COPD) ([facility]) Supplemental oxygen dependent 08/10/2017 DX :Supplemental oxygen dependent Lymphadenopathy 11/18/2017 DX:Lymphadenopat hy; COMMENT: 1.[address] Asthma DX:Asthma Pneumonia DX:Pneumonia Essential hypertension DX:Essent ial hypertension Family History Relation Name Status Comments Father Mother Social History Tobacco Use Types Packs/Day Years Used Date Smoking Tobacco: Former Cigarettes 0.5 54.5 S tarted: 07/05/1970 Smokeless Tobacco: Never Quit: [...] Sign Reading Time Taken Comments Blood Pressure 106/67 12/11/2024 1:10 PM EDT Pulse 103 12/11/2024 1:10 PM EDT Temperature 36.5 C (97.7 F) 12/11/2024 1:10 PM EDT Respiratory Rate 20 12/11/2024 1:10 PM EDT Oxygen Saturation 95% 12/11/2024 1:10 PM EDT Inhaled Oxygen Concentration - - Weight 99.8 kg (220 lb) 12/11/2024 12:53 PM EDT Height 185.4 cm (6' 1 ) 12/11/2024 12:53 PM EDT Body Mass Index 29.03 12/11/2024 12:53 PM EDT Plan of Treatment Upcoming Encounters Date Type Department Care Team (Late st Contact Info) Description 03/07/2025 2:45 PM EDT [facility] [address] [place] [phone] Jayshree Gibbs MD [facility] [address] [place] [address] Health Maintenance Due Date Last Done Comments [...] Diabetes: Blood Sugar Control Test (HGBA1C) 07/11/2024 Influenza Vaccine (#1) 2025 , 04/01/2023, 04/28/2022, Additional history exists Falls Risk Assessment 08/07/2025 08/07/2024 Diabetes: Annual GFR (Glomerular Filtration Rate) 12/11/2025 12/11/2024, 08/07/2024, 08/06/2024, Additional history exists Hypertension/CHF/CAD Annual BMP Blood Test 12/11/2025 12/11/2024, 08/07/2024, 08/06/2024, Additional history exists DTaP,Tdap,and Td Vaccines (2 - Td or Tdap) 05/04/2026 05/04/2016 Zoster Vaccines Completed 04/09/2020, 09/01/2019 Lung Cancer Screening (Low Dose CT) Discontinued 06/29/2023, 06/05/2022, 05/01/2021 RSV Immunization Adult Patients Completed 05/31/2024 HIB [...] Procedure Name Priority Date/Time Associated Diagnosis Comments ECG ANNOTATED 12/13/2024 ECG 12-LEAD STAT 12/11/2024 1:47 PM EDT XR CHEST 2 VIEWS STAT 12/11/2024 1:20 PM EDT ECG 12-LEAD STAT 12/11/2024 12:21 PM EDT CBC WITH AUTO DIFFERENTIAL STAT 12/11/2024 12:13 PM EDT B-TYPE NATRIURETIC PEPTIDE STAT 12/11/2024 12:13 PM EDT MAGNESIUM STAT 12/11/2024 12:13 PM EDT LIPASE STAT 12/11/2024 12:13 PM EDT COMPREHENSIVE METABOLIC PANEL STAT 12/11/2024 12:13 PM EDT CBC AND DIFFERENTIAL STAT 12/11/2024 12:[address] LUNG SCREENING LOW DOSE Routine 06/29/2023 6:57 AM EST Encounter for screening for malignant neoplasm of respiratory organs from Last 3 Months or Most Recently Relevant to Health Maintenance Results * ECG-Annotated (12/13/2024) us Provider Onbase MD ECG ORDERABLES Final Result * ECG 12 lead (12/11/2024 1:47 PM EDT) Only the most recent of2 resultswithin the time period is included. Ventricular Rate ECG 113 BPM GEMUSE Atrial Rate 113 BPM GEMUSE P-R Interval 128 ms GEMUSE QRS Duration 142 ms GEMUSE Q-T Interval 356 ms GEMUSE QTc 488 ms GEMUSE P Wave Sinclair 83 degrees GEMUSE R Sinclair 76 degrees GEMUSE T Sinclair 59 degrees GEMUSE ECG Interpretation Sinus tachycardia Right bundle branch block Abnormal ECG When compared with ECG of 11-DEC-2024 12:21, (unconfirmed) No significant change was found Confirmed by DONELL PRICE ([id number]) on 12/11/2024 9:41:02 PM GEMUSE 12/11/2024 1:47 PM EDT 12/11/2024 9:41 PM EDT us Philip Collins MD ECG ORDERABLES Final Result GEMUSE * XR Chest 2 Views (12/11/2024 1:20 PM EDT) Anatomical Region Laterality Modality Body Radiographic Isabel ging 12/11/2024 1:27 PM EDT Impressions 12/11/2024 1:31 PM EDT FINDINGS/IMPRESSION: Hyperinflation with scarring at the left lung base. No significant effusion. No consolidation. Lucencies in the upper lobes presumably from marked emphysematous changes. No congestive heart failure. No acute osseous abnormality -------- FINAL REPORT -------- Dictated By: Angelo Paulino Dictated Date: 12/11/2024 13:27 ET Assigned Physician: Angelo Paulino Reviewed and Electronically Signed By: Angelo Paulino Signed Date: 12/11/2024 13:31 ET Workstation ID: [id number] Transcribed By: Self Edit Transcribed Date: 12/11/2024 13:29 ET Narrative 12/11/2024 1:31 PM EDT XR CHEST 2 VIEWS INDICATION: chest pain TECHNIQUE: XR CHEST 2 VIEWS COMPARISON: No priors available. Procedure Note Angelo Paulino MD - 12/11/2024 XR CHEST 2 VIEWS INDICATION: chest pain TECHNIQUE: XR CHEST 2 VIEWS COMPARISON: No priors available. IMPRESSION: FINDINGS/IMPRESSION: Hyperinflation with scarring at the left lung base.No significant effusion. No consolidation. Lucencies in the upper lobespresumably from marked emphysematous changes. No congestive heartfailure. No acute osseous abnormality -------- FINAL REPORT -------- Dictated By: Angelo Paulino Dictated Date: 12/11/2024 13:27 ET Assigned Physician: Angelo Paulino Reviewed and Electronically Signed By: Angelo Paulino Signed Date: 12/11/2024 13:31 ET Workstation ID: [id number] Transcribed By: Self Edit Transcribed Date: 12/11/2024 13:29 ET us Philip Collins MD IMG XR PROCEDURES Final Resu lt * (ABNORMAL) CBC auto differential (12/11/2024 12:13 PM EDT) WBC 9.2 4.8 - 10.8 K/mcL LAB HEMETOLOGY METHOD 12/11/2024 12:57 PM EDT [facility] RBC 5.10 4.50 - 5.50 M/mcL LAB HEMETOLOGY METHOD 12/11/2024 12:57 PM EDT [facility] Hemoglobin 15.4 13.5 - 17.5 g/dL LAB HEMETOLOGY METHOD 12/11/2024 12:57 PM EDT [facility] Hematocrit 46.2 42.0 - 54.0 % LAB HEMETOLOGY METHOD 12/11/2024 12:57 PM EDT [facility] MCV 90.9 79.0 - 98.0 FL LAB HEMETOLOGY METHOD 12/11/2024 12:57 PM EDT [facility] MCH 30.3 27.0 - 32.0 pcg LAB HEMETOLOGY METHOD 12/11/2024 12:57 PM EDT [facility] MCHC 33.3 32.0 - 37.0 g/dL LAB HEMETOLOGY METHOD 12/11/2024 12:57 PM EDT [facility] RDW 12.8 11.0 - 15.0 % LAB HEMETOLOGY METHOD [facility] Plate[facility] 261 130 - 400 K/mcL LAB HEMETOLOGY METHOD 12/11/2024 12:57 PM EDT [facility] MPV 9.4 7.0 - 11.0 FL LAB HEMETOLOGY METHOD 12/11/2024 12:57 PM [facility] NRBC 0.0 <1.0 % LAB HEMETOLOGY METHOD 12/11/2024 12:57 PM [facility] NRBC Absolute 0.00 <0.10 K/mcL LAB HEMETOLOGY METHOD 12/11/2024 12:57 PM [facility] Neutrophils Relative 77.9 % LAB HEMETOLOGY METHOD 12/11/2024 12:57 PM [facility] Lymphocytes Relative 13.0 % LAB HEMETOLOGY METHOD 12/11/2024 12:57 PM [facility] Monocytes Relative 6.2 % LAB HEMETOLOGY METHOD 12/11/2024 12:57 PM [facility] Eosinophils Relative 2.1 % LAB HEMETOLOGY METHOD 12/11/2024 12:57 PM [facility] Basophils Relative 0.5 % LAB HEMETOLOGY METHOD 12/11/2024 12:57 PM [facility] Immature Granulocytes Relative 0.3 % LAB HEMETOLOGY METHOD 12/11/2024 12:57 PM [facility] Neutrophils Absolute 7.20(H) 1.50 - 7.00 K/mcL LAB HEMETOLOGY METHOD 12/11/2024 12:57 PM [facility] Lymphocytes Absolute 1.20 1.00 - 5.00 K/mcL LAB HEMETOLOGY METHOD 12/11/2024 12:57 PM [facility] Monocytes Absolute 0.57 0.20 - 1.00 K/mcL LAB HEMETOLOGY METHOD 12/11/2024 12:57 PM [facility] Eosinophils Absolute 0.19 0.00 - 0.50 K/mcL LAB HEMETOLOGY METHOD 12/11/2024 12:57 PM [facility] Basophils Absolute 0.05 0.00 - 0.20 K/[facility] LAB HEMETOLOGY METHOD 12/11/2024 12:57 PM EDT [facility] Immature Granulocytes Absolute 0.03 0.00 - 0.03 K/[facility] LAB HEMETOLOGY METHOD 12/11/2024 12:57 PM EDT [facility] Blood Venous blood specimen / Unknown Venipuncture / Unknown 12/11/2024 12:13 PM EDT 12/11/2024 12:45 PM EDT us Philip Collins MD LAB BLOOD ORDERABLES Final R esult [facility] [address] [place] [address], [place] [phone] * B-type natriuretic peptide (12/11/2024 12:13 PM EDT) BNP 17 <=100 pcg/mL LAB CHEMISTRY METHOD 12/11/2024 2:19 PM EDT [facility] Blood Venous blood specimen / Unknown Venipuncture / Unknown 12/11/2024 12:13 PM EDT 12/11/2024 12:45 PM EDT us Philip Collins MD LAB BLOOD ORDERABLES Final R esult [facility] [address] [place] [address], [place] [phone] * Magnesium (12/11/2024 12:13 PM EDT) Magnesium 2.0 1.9 - 2.6 mg/dL LAB CHEMISTRY METHOD 12/11/2024 1:33 PM EDT [facility] Blood Venous blood specimen / Unknown Venipuncture / Unknown 12/11/2024 12:13 PM EDT 12/11/2024 12:45 PM EDT us Philip Collins MD LAB BLOOD ORDERABLES Final R esult Performing Organization Address [facility]/ZIP Co de Phone Number [facility] [address] [place] [address], [place] [phone] * Lipase (12/11/2024 12:13 PM EDT) Lipase 46 13 - 75 unit/L LAB CHEMISTRY METHOD 12/11/2024 1:33 PM EDT [facility] Blood Venous blood specimen / Unknown Venipuncture / Unknown 12/11/2024 12:13 PM EDT 12/11/2024 12:45 PM EDT us Philip Collins MD LAB BLOOD ORDERABLES Final R esult Performing Organization Address [facility]/ZIP Co de Phone Number [facility] [address] [place] [address], [place] [phone] * (ABNORMAL) Comprehensive metabolic panel (12/11/2024 12:13 PM EDT) Sodium 138 133 - 145 mmol/L LAB CHEMISTRY METHOD 12/11/2024 1:33 PM [facility] Potassium 4.3 3.5 - 5.5 mmol/L LAB CHEMISTRY METHOD 12/11/2024 1:33 PM [facility] Comment:Hemolysis present Chloride 105 96 - 110 mmol/L LAB CHEMISTRY METHOD 12/11/2024 1:33 PM [facility] CO2 28 21 - 32 mmol/L LAB CHEMISTRY METHOD 12/11/2024 1:33 PM [facility] Anion Gap 5 3 - 11 LAB CHEMISTRY METHOD 12/11/2024 1:33 PM [facility] Glucose 115(H) 70 - 100 mg/dL LAB CHEMISTRY METHOD 12/11/2024 1:33 PM [facility] BUN 11 5 - 25 mg/dL LAB CHEMISTRY METHOD 12/11/2024 1:33 PM [facility] Creatinine 0.96 0.70 - 1.30 mg/dL LAB CHEMISTRY METHOD 12/11/2024 1:33 PM [facility] eGFR 87 >=60 mL/min/1. 73m2 LAB CHEMISTRY METHOD 12/11/2024 1:33 PM [facility] Comment:Calculation based on the Chronic Kidney Disease Epidemiology Collaboration (CKD-EPI) equation refit without adjustment for race. BUN/Creatinine Ratio 11.5 LAB CHEMISTRY METHOD 12/11/2024 1:33 PM [facility] Calcium 9.5 8.5 - 10.5 mg/dL LAB CHEMISTRY METHOD 12/11/2024 1:33 PM [facility] AST (SGOT) 16 10 - 42 unit/L LAB CHEMISTRY METHOD 12/11/2024 1:33 PM [facility] ALT (SGPT) 26 10 - 60 unit/L LAB CHEMISTRY METHOD 12/11/2024 1:33 PM [facility] Alkaline Phosphatase 132(H) 42 - 121 unit/L LAB CHEMISTRY METHOD 12/11/2024 1:33 PM [facility] Total Protein 6.6 6.0 - 8.0 g/dL LAB CHEMISTRY METHOD 12/11/2024 1:33 PM [facility] Albumin 3.9 3.2 - 5.0 g/dL LAB CHEMISTRY METHOD 12/11/2024 1:33 PM [facility] Total Bilirubin 0.5 0.0 - 1.4 mg/dL LAB CHEMISTRY METHOD 12/11/2024 1:33 PM [facility] Blood Venous blood specimen / Unknown Venipuncture / Unknown 12/11/2024 12:13 PM EDT 12/11/2024 12:45 PM EDT us Philip Collins MD LAB BLOOD ORDERABLES Final R esult [facility] [address] [place] [address], * CT LUNG SCREENING LOW DOSE (06/29/2023 6:57 AM EST) Anatomical Region Laterality Modality Computed Tomogra phy 06/15/2023 1:42 PM EST Narrative 06/29/2023 6:[address] [facility] Diagnostic Imaging Department [address] [place] [address] Patient: ANNA JACKSON /Age/Sex: 1960 - 63 - M Unit#: [id number] Location/Status: SPDICATLS/REG CLI Mnemonic/Ordering Site: [facility] Ordering Physician: SHARIF ALY MD CT Lung Screening Low Dose - 06/15/23 - 1351 Report Status:Signed Indication: Greater than 20 total pack-year smoking history, asymptomatic former smoker Technique: Low-dose CT scan of the chest obtained as a lung cancer screening study. Multiplanar reformatted images were obtained. Dose reduction technique: ASIR (Adaptive statistical iterative reconstruction) and/or AEC (automated exposure control) COMPARISON: [id number]. FINDINGS: Lack of intravenous contrast limits evaluation of the edson, vascular structures and visualized abdominal viscera. Lungs/airways: Trachea and central airways are patent. Emphysematous changes. Bronchial wall thickening. Calcified granulomata. Increased/new tree-in-bud [...] neck, mediastinum, heart, chest wall, vessels: The assessment of hilar lymphadenopathy is difficult without the use of IV contrast. Prominent mediastinal lymph nodes; similar to prior. Thoracic aortic and coronary artery calcifications. Upper abdomen: This study was performed without contrast and with lower than standard dose. These factors reduce the sensitivity for detection of small lesions in the upper abdomen. Cholelithiasis. Bones/soft tissues: Degenerative changes IMPRESSION: Increased/new tree-in-bud opacities in the right lower lobe which may represent postinfectious/postinflammatory process. Lung RADS 0: Incomplete. Findings suggestive of an inflammatory or infectious process.1-3 month LDCT Dictating Physician: JHONNY PATEL MD Electronically Signed by: JHONNY PATEL MD Dic Date/Time: 06/29/23645 Sign date/Time: 06/29/2357 Procedure Note Jhonny Patel MD - 08/10/2023 [facility] Diagnostic Imaging Department [address] [place], [place] [id number] Patient: ANNA JACKSON /Age/Sex: 1960 - 63 - M Unit#: [id number] Location/Status: SPDICATLS/REG CLI Mnemonic/Ordering Site: [facility] Ordering Physician: SHARIF ALY MD CT Lung Screening Low Dose - 06/15/23 - 1351 Report Status:Signed Indication: Greater than 20 total pack-year smoking history,asymptomatic former smoker Technique: Low-dose CT scan of the chest obtained as a lung cancerscreening study. Multiplanar reformatted images were obtained. Dose reductiontechnique: ASIR (Adaptive statistical iterative reconstruction) and/or AEC(automated exposure control) COMPARISON: [id number]. 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
[2025-01-11 15:11] VITALS: BP 130/70; PULSE 91; O2SAT 93; BMI 29.0
--- NOTE | 2025-01-11 15:11 | A.OFFPC_ITS ---
Vital Signs 01/11/25 15:11 Height 6 ft Weight 214 lb BMI 29.0 BP 130/70 Blood Pressure Location Lt brachial Position Sitting Pulse 91 Pulse Source Pulse Oximeter Pulse Oximetry (%) 93 Oxygen Delivery Method Room Air Intake Visit Reasons: COPD/hld Certified Optician Required: No Accompanied by: Self / Same As Patient Allergies No Known Allergies Allergy (Verified 01/12/25 04:20) Medication List - Last Reconciled 01/12/25 by Sanju Disla MD albuterol sulfate 90 mcg/actuation (Ventolin HFA) 2 puffs inhalation Q6H PRN albuterol sulfate 2.5 mg (3 mL) continuous nebulization QID PRN allopurinol 100 mg PO DAILY 90 days amlodipine 5 mg PO DAILY aspirin 81 mg PO DAILY atorvastatin 80 mg PO DAILY bisacodyl (Gentle Laxative (bisacodyl)) 10 mg (2 x 5 mg) PO BEDTIME cholecalciferol (vitamin D3) (Vitamin D3) 25 mcg PO DAILY clotrimazole 10 mg mucous membrane .five times a day cyanocobalamin (vitamin B-12) 1,000 mcg PO DAILY docusate sodium 100 mg PO BEDTIME hszqengggwd-quvndtgxv-pcdqvnwa 200-62.5-25 mcg (Trelegy Ellipta) 1 ea inhalation DAILY isosorbide mononitrate ER 30 mg PO DAILY losartan 100 mg PO DAILY nitroglycerin 0.4 mg sublingual Q5M nystatin 4 mL PO QID 7 days pantoprazole 40 mg PO DAILY polyethylene glycol 3350 (Miralax) 17 grams PO DAILY potassium citrate ER 20 mEq (2 x 10 mEq (1,080 mg)) PO BID 90 days roflumilast (Daliresp) 500 mcg PO DAILY tamsulosin 0.4 mg PO BEDTIME 14 days Tobacco use date assessed: 01/11/25 Fall risk assessment: No Falls in past year Last assessed Fall Risk: 01/11/25 Dental Screening Dental Screen Date: 01/11/25 Did you have a dental visit in the last 12 months?: Yes Did you have a dental problem in the last 6 months where you did not have access to dental care?: No Was dental information given to patient?: Patient has dentist HPI COPD/hld HPI Details Patient comes in today for his follow-up visit States that he feels okay He denies any headaches or dizziness Denies any chest pains, no increased shortness of breath - states that his COPD has been better controlled lately No nausea/vomiting, no abdominal pain No change in bowel habits noted He has no follow-up labs done recently ON LICENSE OF [facility] Medical History Oral thrush Allergic rhinitis Overweight (BMI 25.0-29.9) Constipation Atherosclerotic cardiovascular disease Swelling of left lower extremity Vitamin B12 deficiency GERD without esophagitis Anterior chest wall pain Mixed hyperlipidemia Primary insomnia Urinary frequency Neuropathy Vitamin D deficiency Osteoarthritis Lumbar degenerative disc disease Impaired fasting glucose Benign essential hypertension COPD (chronic obstructive pulmonary disease) Headache Epidermoid cyst Surgical History History of total right knee replacement History of cardiac cath History of colonoscopy Family History Father Colon cancer Mother Medical history unknown Social History Housing: Apartment Alcohol intake: former Patient Tobacco Use Status: Current everyday Tobacco user Tobacco use type: Cigarette Cigarettes Per Day: 15 Years Smoked: 30 +/- e-Cigarette/Vaping Use: Never Used Second Hand Smoke Exposure: Yes service: No Current occupational status: disabled Cognitive needs: No Hearing needs: Yes Vision needs: Yes (reading glasses) Questionnaire PHQ-9 Over the last 2 weeks, how often have you been bothered by any of the following problems? 1. Little interest or pleasure in doing things: not at all 2. Feeling down, depressed, or hopeless: not at all 3. Trouble falling or staying asleep, or sleeping too much: not at all 4. Feeling tired or having little energy: not at all 5. Poor appetite or overeating: not at all 6. Feeling bad about yourself - or that you are a failure or have let yourself or your family down: not at all 7. Trouble concentrating on things, such as reading the newspaper or watching television: not at all 8. Moving or speaking so slowly that other people could have noticed. Or the opposite - being so fidgety or restless that you have been moving around a lot more than usual: not at all 9. Thoughts that you would be better off or of hurting yourself in some way: not at all Total score: 0 Depression Screening Interpretation: Negative Depression Screening Done: Yes 54276 - PHQ-9 Billing: Yes Source: Developed by Drs. Ronald Vieira, Yomaira Craig, Sesar Stahl and colleagues, with an educational estelle from [employer]. Thrive Questionnaire Date Thrive assessed: 01/11/25 I am a: Patient What is your living situation today?: I have a steady place to live Within the past 12 months, did the food you bought not last and you didn't have the money to get more?: Often true Within the past 12 months, did you worry whether your food would run out before you got money to buy more?: Never true Do you have trouble paying for medicines?: No Do you have trouble getting transportation to medical appointments?: No Do you have trouble paying your heating and electricity bill?: No Do you have trouble taking care of your child, family member or friend?: No Do you have trouble with day-to-day activities such as bathing, preparing meals, shopping, managing finances, etc.?: No Are you currently unemployed and looking for a job?: No Are you interested in more education?: No Please select the resources that you would like help with: None Currently or been in a relationship where the following occur: I choose not to answer THRIVE Score: 1 AUDIT C Alcohol Use Questionnaire (AUDIT-C) 1. How often do you have a drink containing alcohol?: Never 3. How often do you have six or more drinks on one occasion?: Never Total Score: 0 Score Reviewed/Action Taken: Yes SUSIE-7 AMB Questionnaire SUSIE-7 Date SUSIE - 7 assessed: 01/11/25 Feeling nervous, anxious, or on edge: 0 = Not at all Not being able to stop or control worryin = Not at all Worrying too much about different things: 0 = Not at all Trouble relaxin = Not at all Being so restless that it is hard to sit still: 0 = Not at all Becoming easily annoyed or irritable: 0 = Not at all Feeling afraid as if something awful might happen: 0 = Not at all Total SUSIE-7 score (0-4 normal; 5-9 mild; 10-14 moderate; 15-21 severe): 0 Source: Developed by Drs. Ronald Vieira, Yomaira Craig, Sesar Stahl and colleagues, with an educational estelle from [employer]. Review of Systems Const Denies chills, Denies fatigue, Denies fever(s) and Denies headache(s) ENT Denies dysphagia, Denies dizziness, Denies otalgia, Denies headache(s), Denies neck pain, Denies odynophagia and Denies sore throat Card Denies chest pain, Denies palpitations and Reports dyspnea on exertion (mild) Resp Denies chest congestion, Reports cough (occasional; coughs up thick whitish phlegm at times), Reports dyspnea on exertion (mild) and Denies wheezing GI Denies abdominal pain, Denies constipation, Denies dysphagia, Denies heartburn, Denies diarrhea, Denies nausea, Denies odynophagia and Denies vomiting Denies hematuria, Denies difficulty urinating, Denies dysuria, Denies nocturia and Denies urinary frequency Musc Reports back pain (over the lower back - chronic) and Denies neck pain Skin/Breast Denies rash Neuro Denies dizziness and Denies headache(s) Endo Denies fatigue and Denies palpitations Glynn/Lymph Details: recurrent swelling of his left foot and ankle Aller/Immun Reports seasonal rhinorrhea and Denies wheezing Physical exam (Primary Care) Vital Signs: Last Vital Signs Pulse 91 01/11/25 15:11 BP 130/70 01/11/25 15:11 Pulse Ox 93 01/11/25 15:11 Oxygen Delivery Method Room Air 01/11/25 15:11 BMI result Body Mass Index 29.0 Tobacco/Smoking Status: Tobacco use Status Tobacco use date assessed 01/11/25 01/11/25 15:15 Patient Tobacco Use Status Current everyday Tobacco 01/11/25 15:15 Tobacco use type Cigarette 01/11/25 15:15 e-Cigarette/Vaping Use Never Used 01/11/25 15:15 PHQ-9: PHQ-9 Score PHQ-9: Total score 0 01/11/25 15:44 Depression Screening Interpretation: Negative Thrive Assessment: Date of Thrive Assessment Date Thrive assessed 01/11/25 01/11/25 15:15 Currently or been in a relationship where the following occur: I choose not to answer Const General: no acute distress and alert HENMT Ears: TM's normal bilaterally and EAC's normal Throat: Yes posterior oropharynx normal and Yes tonsils normal (no TP congestion noted) Neck Neck: Yes supple and No lymphadenopathy Thyroid: Thyroid normal Resp Auscultation: no rales, no wheezes and diminished lung sounds (significantly) bilateral Cardio Rate: regular rate Rhythm: regular rhythm Heart sounds: no murmurs GI Palpation (GI): Soft to palpation and nontender Auscultation: normal bowel sounds General: Yes no CVA tenderness Back/Spine/Pelvis Back: no CVA tenderness Thoracic/Lumbar Spine: lumbar spinal tenderness Skin Rashes: no rashes Extrem General: Yes no clubbing, cyanosis or edema Coding Level of Care Code Est Pt Level 4 (91202) Diagnoses Atherosclerotic cardiovascular disease I25.10 Mixed hyperlipidemia E78.2 Essential hypertension I10 Chronic obstructive pulmonary disease, unspecified COPD type J44.9 COPD type: unspecified COPD Impaired fasting glucose R73.01 Allergic rhinitis, unspecified seasonality, unspecified trigger J30.9 Allergic rhinitis seasonality: unspecified Allergic rhinitis trigger: unspecified Nephrolithiasis N20.0 Primary osteoarthritis, unspecified site M19.91 Osteoarthritis location: unspecified site Osteoarthritis type: primary Degeneration of intervertebral disc of lumbar region with discogenic back pain M51.360 Disc-related pain type: discogenic back pain only Neuropathy G62.9 Vitamin D deficiency E55.9 Chronic idiopathic constipation K59.04 Constipation type: chronic idiopathic constipation Primary insomnia F51.01 Overweight (BMI 25.0-29.9) E66.3 Additional Codes PHQ-9 - 43458 - PHQ-9 Billing: Yes ([id number]) Assessment & Plan Assessment & Plan (1) Atherosclerotic cardiovascular disease: Code(s): I25.10 - Atherosclerotic heart disease of lime coronary artery without angina pectoris Category: Medical Plan: Cardiac catheterization done back on 04/01/2021 revealed (+) subtotal occlusion of the right coronary artery with collaterals; no significant disease elsewhere Repeat cardiac catheterization done last year on 05/19/2024 revealed normal EDP with coronary anatomy unchanged from 2020 and with well-established INDUSTRIAL HEALTH AND SAFETY PROFESSOR of RCA He was recommended to continue with aggressive risk reduction and medical management with dual anti-platelet therapy, long-acting nitrates (Isosorbide mononitrate ER 30 mg QD) and high-dose statins Per cardiology, IF symptoms persist or progress, will then consider intervention of his RCA disease Follow-up with cardiology as scheduled (2) Mixed hyperlipidemia: Code(s): E78.2 - Mixed hyperlipidemia Category: Medical Plan: Reinforced low cholesterol diet Continue Atorvastatin 80 mg QD - he was taken off Gemfibrozil and started on Atorvastatin after his cardiac cath a few years ago in 2020 Will recheck his labs and fasting lipids as originally scheduled in 4 months (3) Essential hypertension: Code(s): I10 - Essential (primary) hypertension Category: Medical Plan: Reinforced low-sodium diet -? goal is systolic BP of at least 120 to 130 mm or less Continue Losartan 100 mg QD and Amlodipine 5 mg QD (4) COPD (chronic obstructive pulmonary disease): Code(s): J44.9 - Chronic obstructive pulmonary disease, unspecified Category: Medical Qualifiers: COPD type: unspecified COPD Qualified Code(s): J44.9 - Chronic obstructive pulmonary disease, unspecified Plan: Low-dose CT done on 09/18/2023 revealed (+) emphysematous disease and pulmonary parenchymal scarring without interval development of suspicious pulmonary nodules Continue Trelegy Ellipta 1 puff QD, Daliresp 500 mcg tablet once a day and Ventolin HFA 2 puffs 4 times a day as needed; patient also uses his nebulizer with Albuterol solution up to 4 times a day when needed Continue Mucinex ER 600 mg tablet BID PRN to help loosen up his phlegm and make it easier for him to cough up his phlegm Patient also has nocturnal hypoxemia and is encouraged to continue using his oxygen at night consistently when he is sleeping Follow-up with pulmonary (Dr. Jayshree Gibbs) at [place] as scheduled (5) Impaired fasting glucose: Code(s): R73.01 - Impaired fasting glucose Category: Medical Plan: Reinforced low calorie diet/exercise as tolerated His HgbA1c remained normal at 5.2% on his labs when they were previously checked; FBS was elevated then at 113 mg/dl Will recheck these again in 4 months for follow up (6) Allergic rhinitis: Code(s): J30.9 - Allergic rhinitis, unspecified Category: Medical Qualifiers: Allergic rhinitis seasonality: unspecified Allergic rhinitis trigger: unspecified Qualified Code(s): J30.9 - Allergic rhinitis, unspecified Plan: Continue Fluticasone 50 mcg nasal spray QD PRN (7) Nephrolithiasis: Code(s): N20.0 - Calculus of kidney Category: Medical Plan: Abdominal CT done in November 2023 revealed a persistent irregular 14 mm calculus in the lower pole of the left kidney He was originally scheduled for kidney stone extraction following ESWL sometime in early May 2023 but it was not done He eventually had ESWL done in January 2024 Repeat US in February 2024 revealed (+) nonobstructing bilateral renal calculi. No hydronephrosis or mass is noted Follow up with urology as scheduled (8) Osteoarthritis: Code(s): M19.90 - Unspecified osteoarthritis, unspecified site Category: Medical Qualifiers: Osteoarthritis location: unspecified site Osteoarthritis type: primary Qualified Code(s): M19.91 - Primary osteoarthritis, unspecified site Plan: Patient states that his joint pains remain adequately controlled on Tramadol PRN (9) Lumbar degenerative disc disease: Code(s): M51.36 - Other intervertebral disc degeneration, lumbar region Category: Medical Qualifiers: Disc-related pain type: discogenic back pain only Qualified Code(s): M51.360 - Other intervertebral disc degeneration, lumbar region with discogenic back pain only Plan: Reinforced activity and weight lifting restrictions Lumbar spine MRI done in February 2023 revealed (+) multilevel degenerative disc disease MRI revealed (+) mild to moderate spinal canal stenosis at L3-L4 with bilateral subarticular stenosis and compression of the exiting right more than left L3 nerve roots. At L4-L5, there is mild to moderate spinal canal stenosis, bilateral subarticular stenosis with compression of the traversing L5 nerve roots, and severe bilateral neural foraminal stenosis with compression of both exiting L4 nerve roots. 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 Symptoms are currently reasonably controlled on Gabapentin and patient is advised to call if his symptoms get worse (11) Vitamin D deficiency: Code(s): E55.9 - Vitamin D deficiency, unspecified Category: Medical Plan: Continue Vitamin D3 1000 units QD (12) Constipation: Code(s): K59.00 - Constipation, unspecified Category: Medical Qualifiers: Constipation type: chronic idiopathic constipation Qualified Code(s): K59.04 - Chronic idiopathic constipation Plan: Reinforced increased oral fluids and dietary fiber Continue Amitiza 24 mcg QD Follow-up with GI as scheduled (13) Primary insomnia: Code(s): F51.01 - Primary insomnia Category: Medical Plan: Sleep hygiene reinforced Continue Trazodone 50 mg once a day at bedtime as needed (14) Overweight (BMI 25.0-29.9): Code(s): E66.3 - Overweight Category: Medical Plan: Reinforced diet/lose weight; may exercise as tolerated but advised to stop immediately if he starts to experience increasing chest pain/pressure with activity as he has (+) CAD Plan Follow-up in 4 months Orders: Orders Complete Blood Count Auto Diff 4 Months D64.9 - Anemia, unspecified Comprehensive [place]. Panel Fast 4 Months E78.00 - Pure hypercholesterolemia, unspecified Vitamin B12 and Folate 4 Months E53.8 - Deficiency of other specified B group vitamins Lipid Panel 4 Months E78.00 - Pure hypercholesterolemia, unspecified TSH reflex Free T4 4 Months E78.00 - Pure hypercholesterolemia, unspecified UA CC w/rflx Micro + Cult 4 Months R30.0 - Dysuria Vitamin D 25-OH Total 4 Months E55.9 - Vitamin D deficiency, unspecified Hemoglobin A1c 4 Months R73.01 - Impaired fasting glucose
== END 2025-01-11 15:47 | disposition home or self-care (01) ==
LOC: HO.HMCH 14:55
PROVIDERS: PCP Internal Medicine; Visit Provider Internal Medicine
DX: I25.10 Atherosclerotic heart disease of native coronary artery without angina pectoris (principal); E78.2 Mixed hyperlipidemia; I10 Essential (primary) hypertension; J44.9 Chronic obstructive pulmonary disease, unspecified; R73.01 Impaired fasting glucose; J30.9 Allergic rhinitis, unspecified; N20.0 Calculus of kidney; M19.91 Primary osteoarthritis, unspecified site; M51.360 Other intervertebral disc degeneration, lumbar region with discogenic back pain only; G62.9 Polyneuropathy, unspecified; E55.9 Vitamin D deficiency, unspecified; K59.04 Chronic idiopathic constipation; F51.01 Primary insomnia; E66.3 Overweight

== ENCOUNTER → 2025-01-11 14:55 | Outpatient (BNVA) | payer MEDICARE, MEDICAID, SELFPAY | PROVIDERS: PCP Internal Medicine; Visit Provider Internal Medicine | DX: I10 Essential (primary) hypertension (principal); F17.210 Nicotine dependence, cigarettes, uncomplicated; I25.10 Atherosclerotic heart disease of native coronary artery without angina pectoris; E78.2 Mixed hyperlipidemia; J44.9 Chronic obstructive pulmonary disease, unspecified; R73.01 Impaired fasting glucose; J30.9 Allergic rhinitis, unspecified; N20.0 Calculus of kidney; M19.91 Primary osteoarthritis, unspecified site; M51.360 Other intervertebral disc degeneration, lumbar region with discogenic back pain only; G62.9 Polyneuropathy, unspecified; E55.9 Vitamin D deficiency, unspecified; K59.04 Chronic idiopathic constipation; F51.01 Primary insomnia; E66.3 Overweight; Z68.29 Body mass index [BMI] 29.0-29.9, adult | CPT/HCPCS: 96127; 99212 ==

== ENCOUNTER 2025-02-28 11:09 | Outpatient (REF) | payer MEDICARE, MEDICAID, SELFPAY ==
--- NOTE | ~2025-02-28 | US_ITS ---
EXAMINATION: US RETROPERITONEAL LIMITED (RENAL ONLY) CLINICAL INFORMATION: Calculus of kidney. COMPARISON: February 14, 2024. TECHNIQUE: Real-time ultrasound kidneys using grayscale and color Doppler technique. FINDINGS: RIGHT KIDNEY: 12 x 5 x 6 cm (SAG x AP x TRV). Normal echotexture. Normal renal cortical thickness. No hydronephrosis. No gross solid or cystic lesion. There is a 4 mm hyperechoic structure in the lower pole of the pelvicalyceal system. LEFT KIDNEY: 10 x 5 x 5 cm (SAG x AP x TRV). Normal echotexture. Normal renal cortical thickness. No hydronephrosis. There is a subcentimeter anechoic lesion at the renal cortex of the midportion without flow on color Doppler interrogation. There is a 3 mm hyperechoic structure in the lower pole. US/US renal BI IMPRESSION: 3-4 mm nonobstructing calculus, bilateral. 7 mm cystic lesion, left kidney.. Electronically signed by: Socrates Engle MD 02/28/2025 11:46 AM EDT
--- OUTSIDE RECORDS SUMMARY | 2025-02-28 12:03 | XMS_ITS | Encounter Summary ---
Author Organization [facility] Address [address] [place] [address] Care Team Providers Care Hadoop Infrastructure Architect Name Role Phone Sanju Disla MD Primary Care Provider Kirk mendez Encounter Details Date Type Department Care Team Description 05/09/2019 Release of Information Medical Records [address] [place] [id number] Abstract, Provider Social History Tobacco Use Types Packs/Day Years Used Date Smoking Tobacco: Former Cigarettes 0.5 47 1 971 - 09/02/2017 Smokeless Tobacco: Never Quit: 02/2018 Alcohol Use Standard Drinks/Week Comments Yes 0 (1 standard drink = 0.6 oz pur e alcohol) Sex Assigned at Date Recorded Not on file Job Start Date Occupation Industry Not on file Not on file Not on file documented as of this encounter Plan of Treatment Not on file documented as of this encounter Visit Diagnoses Not on filedocumented in this encounter Care Teams Hadoop Infrastructure Architect Relationship Specialty Start Date End Date Sanju Disla MD PCP - General 05/07/1997 documented as of this encounter
--- OUTSIDE RECORDS SUMMARY | 2025-02-28 12:03 | XMS_ITS | Encounter Summary ---
Author Organization [facility] Address [address] [place] [address] Care Team Providers Care Tuna Purse Seiner Name Role Phone Sanju Disla MD Primary Care Provider Unava ilable Reason for Visit * Reason Onset Date Comments Letter 06/02/2021 Jury Duty Encounter Details Date Type Department Care Team Description 06/02/2021 Telephone Pulmonology - [place] [address] [facility] [address] [place] [address] Jayshree Gibbs MD [address] [place] [phone] Letter (Jury Duty) Social History Tobacco Use Types Packs/Day Years Used Date Smoking Tobacco: Former Cigarettes 0.5 47 1 971 - 09/02/2017 Smokeless Tobacco: Never Quit: 02/2018 Alcohol Use Standard Drinks/Week Comments Yes 0 (1 standard drink = 0.6 oz pur e alcohol) Sex Assigned at Date Recorded Not on file Job Start Date Occupation Industry Not on file Not on file Not on file COVID-19 Exposure Response Date Recorded In the last month, have you been in contact with someone who was confirmed or suspected to have Coronavirus / COVID-19? No / Unsure 05/15/2021 1:07 PM EST documented as of this encounter Miscellaneous Notes * Telephone Encounter - Lisandra Flores M.A. - 06/03/2021 8:56 AM EST Letter faxed and mailed to patient. Patient notified. * Telephone Encounter - Jayshree Gibbs MD - 06/02/2021 5:30 PM EST letter done- please print and send to pt * Telephone Encounter - Talia Mathew - 06/02/2021 3:41 PM EST Patient called to ask Dr Gibbs to write a letter to excuse patient from Jury Duty. Patient received a letter to serve on Friday, August 13, 2021. Patient can barely walk before running out of breath. Patient said Dr Gibbs has done this for him in the past. Please fax letter excusing patient to: FAX [phone]. Please reference these in the letter: Rosalina # [id number] Pin # [id number] documented in this encounter Plan of Treatment Not on file documented as of this encounter Visit Diagnoses Not on filedocumented in this encounter Care Teams Tuna Purse Seiner Relationship Specialty Start Date End Date Sanju Disla MD PCP - General 05/07/1997 documented as of this encounter
--- OUTSIDE RECORDS SUMMARY | 2025-02-28 12:03 | XMS_ITS | Encounter Summary ---
Author Organization [facility] Address [address] [place] [address] Care Team Providers Care Plastic Extruding Machine Operator Name Role Phone Sanju Disla MD Primary Care Provider Unava ilable Encounter Details Date Type Department Care Team Description 05/19/2017 Transfer Records Medical Records [address] [place] [id number] Abstract, Provider Social History Tobacco Use Types Packs/Day Years Used Date Smoking Tobacco: Every Day Alcohol Use Standard Drinks/Week Comments Yes 0 [...] on filedocumented in this encounter Care Teams Plastic Extruding Machine Operator Relationship Specialty Start Date End Date Sanju Disla MD PCP - General 05/07/1997 documented as of this encounter
--- OUTSIDE RECORDS SUMMARY | 2025-02-28 12:03 | XMS_ITS | Encounter Summary ---
Author Organization [facility] Address [address] [place] [address] Care Team Providers Care Rolloff Truck Driver Name Role Phone Sanju Disla MD Primary Care Provider Unava ilable Reason for Visit * Reason Comments E-prescribe Rx Request Encounter Details Date Type Department Care Team Description 06/06/2021 Refill Pulmonology - [place] [address] [facility] [address] [place] [phone] Jayshree Gibbs MD [address] [place] [phone] E-prescribe Rx Request Social History Tobacco Use Types Packs/Day Years [...] encounter Miscellaneous Notes * Telephone Encounter - Ping Valdez - 06/09/2021 8:39 AM EST Patient would like script to be: E-PRESCRIBED/FAXED TO PHARMACY WHEN WAS THE PATIENT'S LAST APPOINTMENT IN ADULT MEDICINE? 05/15/21 WHEN WAS THE LAST TIME THE PATIENT SAW THEIR PCP? Same as above Does patient have an upcoming appointment? Yes 09/15/21 (THE MEDICATION REQUESTED IS ON THE MED LIST ABOVE) All of the medications requested were on the CURRENT MEDS list Did you check the Pharmacy information above?: YES Patient wants: 30 -day supply Is this a mail order prescription request ? NO If the refill is from a FAXED refill request what is the RX # listed on the fax? N/A Patients current insurance carrier is: [place] / Product Type: MED[place]ARE [id number] documented in this encounter Plan of Treatment Not on file documented as of this encounter Visit Diagnoses Not on filedocumented in this encounter Care Teams Rolloff Truck Driver Relationship Specialty Start Date End Date Sanju Disla MD PCP - General 05/07/1997 documented as of this encounter
--- OUTSIDE RECORDS SUMMARY | 2025-02-28 12:03 | XMS_ITS | Encounter Summary ---
Author Organization [facility] Address [address] [place] [address] Care Team Providers Care Corrections Unit Supervisor Name Role Phone Sanju Disla MD Primary Care Provider Unava ilable Encounter Details Date Type Department Care Team Description 02/28/2018 Refill Pulmonology - [place] [address] [facility] [address] [place] [address] Jayshree Gibbs MD [address] [place] [address] Social History Tobacco Use Types Packs/Day Years Used Date Smoking Tobacco: Former Cigarettes 0.5 47 1 971 - 09/02/2017 Smokeless Tobacco: Never Alcohol Use Standard Drinks/Week Comments Yes 0 [...] on filedocumented in this encounter Care Teams Corrections Unit Supervisor Relationship Specialty Start Date End Date Sanju Disla MD PCP - General 05/07/1997 documented as of this encounter
--- OUTSIDE RECORDS SUMMARY | 2025-02-28 12:03 | XMS_ITS | Encounter Summary ---
Author Organization [facility] Address [address] [place] [address] Care Team Providers Care Bundles Hanger Name Role Phone Sanju Disla MD Primary Care Provider Unava ilable Reason for Visit * Reason Comments E-prescribe Rx Request Encounter Details Date Type Department Care Team Description 2018 Refill Pulmonology - [address] [place] [id number] Roxana Perez, JAYRO E-prescribe Rx Request Social History Tobacco Use [...] on file documented as of this encounter Miscellaneous Notes * Telephone Encounter - Rachel Arnold M.A. - 2018 11:46 AM EDT Roxana Patient has up coming appt with Dr Gibbs. Please review. vf * Telephone Encounter - Peggy Marks - 2018 8:06 AM EDT Patient would like script to be: E-PRESCRIBED/FAXED TO PHARMACY WHEN WAS THE PATIENT'S LAST APPOINTMENT WITH THE PRESCRIBING PROVIDER? 12/27/17 Does patient have an upcoming appointment? Yes (THE MEDICATION REQUESTED IS ON THE MED LIST ABOVE) All of the medications requested were on the CURRENT MEDS list Did you check the Pharmacy information above?: YES Patient wants: 90 -day supply Is this a mail order prescription request ? NO Patients current [place] carrier is: [place] / Product Type: MED[place]ARE [id number] documented in this encounter Plan of Treatment Not on file documented as of this encounter Visit Diagnoses Not on filedocumented in this encounter Care Teams Bundles Hanger Relationship Specialty Start Date End Date Sanju Disla MD PCP - General 05/07/1997 documented as of this encounter
--- OUTSIDE RECORDS SUMMARY | 2025-02-28 12:03 | XMS_ITS | Encounter Summary ---
Author Organization [facility] Address [address] [place] [address] Care Team Providers Care Territory Sales Executive Name Role Phone Sanju Disla MD Primary Care Provider Kirk mendez Encounter Details Date Type Department Care Team Description 02/09/2022 Telephone Pulmonology - [place] [address] [facility] [address] [place] [address] Jayshree Gibbs MD [address] [place] [address] Social History Tobacco Use Types Packs/Day Years Used Date Smoking Tobacco: Every Day Cigarettes 0.5 47 Started: 1972; Last attempted to quit: 09/02/2017 Smokeless Tobacco: Never Quit: 02/2018 Comments:5 to cigs daily Alcohol Use Standard Drinks/Week Comments Not Currently 0 (1 standard drink = 0.6 oz pur e alcohol) Sex Assigned at Date Recorded Not on file Job Start Date Occupation Industry Not on file Not on file Not on file COVID-19 Exposure Response Date Recorded In the last 10 days, have ely u been in contact with someone who was confirmed or suspected to have Coronavirus/COVID-19? No / Unsure 01/19/2022 9:53 AM EDT documented as of this encounter Plan of Treatment Not on file documented as of this encounter Visit Diagnoses Not on filedocumented in this encounter Care Teams Territory Sales Executive Relationship Specialty Start Date End Date Sanju Disla MD PCP - General 05/07/1997 documented as of this encounter
--- OUTSIDE RECORDS SUMMARY | 2025-02-28 12:03 | XMS_ITS | Clinical Summary ---
Author Organization [address] [facility] Address [address] [place] [address] Phone Care Team Providers Care Microfilm Clerk Name Role Phone Sanju Disla MD Primary [...] DAILY 1 each 11 11/29/19 25 Active dextromethorphan- guaiFENesin (ROBITUSSIN-DM) 10-100 mg/5 mL syrup Take 10 mL by mouth every 4 (four) hours if needed for cough. 473 mL 1 02/17/20 25 Active nicotine (NICODERM CQ) 21 mg/[address] 1 patch on the skin 1 (one) time each day at the same time. 30 each 02/17/20 25 025 Active doxycycline (MONODOX) 100 mg capsule Take 1 capsule (100 mg total) by mouth every 12 (twelve) hours for 10 doses. Take with at least 8 ounces (large glass) of water, do not lie down for 30 minutes after. Administer 2 hours before or after multivitamins, antacids, or other products containing polyvalent cations (i.e., calcium, iron, magnesium, selenium, zinc). 10 each 02/17/20 25 025 predniSONE (DELTASONE) 20 mg tablet Take 2 tablets (40 mg total) by mouth 1 (one) time each day for 4 doses. 8 each 02/18/20 25 Active Problems Problem Noted Date Diagnosed Date SOB (shortness of breath) 02/16/2025 Coronary artery disease invo lving belkofski coronary artery of belkofski heart without angina pectoris 07/11/2024 Assessment & [...] chronic hypoxic res piratory failure ([facility] V24, CMS/[facility] V28) 05/15/2024 COPD exacerbation ([facility] V24, [facility] V28) 04/2024 Inclusion cyst 05/08/2019 Lymphadenopathy 11/18/2017 [...] obstructive pulmonar y disease (COPD) ([facility] V24, [facility] V28) 02/11/2017 Resolved Problems Problem Noted Date Diagnosed Date Resolved Date Chest pain 07/03/2024 07/11/2024 Encounters Date Type Department Care Team Description 02/15/2025 9:32 PM EDT - 02/16/2025 2:46 PM EDT Hospital Encounter [facility] Emergency [address] [place] [address] Tomer Holland MD Ishtiaq, Rizwan, MD Bell, Alistair A, MD COPD exacerbation ([facility] V24, [facility] V28) (Primary Dx); Acute on chronic respiratory failure with hypoxia ([facility] V24, CMS/HCC V28) Discharge Disposition: Home or Self Care 12/25/2024 Telephone [facility] [address] [place] [address] Hayes Han MD 12/11/2024 11:56 AM EDT - 12/11/2024 3:01 PM EDT Emergency [facility] Emergency [address] [place] [address] Philip Collins MD COPD exacerbation ([facility] V24, [facility] V28) (Primary Dx) Discharge Disposition: Home or Self Care from Last 3 Months Immunizations Name Administration Dates Next Due Influenza Quadravalent, MDCK , 0.5ml, preservative free (Flucelvax) 6mo and older 04/28/2022 Surgical History Surgery Date Site/Laterality Comments KNEE SURGERY PROCEDURE: HISTORICAL KNEE SURGERY DENTAL SURGERY PROCEDURE: MT UNLISTED PROCEDURE DENTOALVEOLAR STRUCTURES Medical History Medical History Date Comments Arthritis DX:Arthritis Cholelithiasis 08/10/2017 DX:Cholelithiasi s Diverticulosis 08/10/2017 DX:Diverticulosi s Hyperlipidemia 08/10/2017 DX:Hyperlipidemi a Tobacco use 02/11/2017 DX:Tobacco use Chronic obstructive pulmonar y disease (COPD) ([facility] V24, [facility] V28) 02/11/2017 DX:Chronic obstructi ve pulmonary disease (COPD) ([facility]) Supplemental oxygen dependent 08/10/2017 DX :Supplemental oxygen dependent Lymphadenopathy 11/18/2017 DX:Lymphadenopat hy; COMMENT: 1.[address] Asthma DX:Asthma Pneumonia DX:Pneumonia Essential hypertension DX:Essent ial hypertension Family History Relation Name Status Comments Father Mother Social History Tobacco Use Types Packs/Day Years Used Date Smoking Tobacco: Former Cigarettes 0.5 54.7 S tarted: 07/05/1970 Smokeless Tobacco: Never Quit: [...] Sign Reading Time Taken Comments Blood Pressure 124/82 02/16/2025 2:23 PM EDT Pulse 82 02/16/2025 2:23 PM EDT Temperature 36.7 C (98 F) 02/16/2025 2:23 PM EDT Respiratory Rate 20 02/16/2025 2:23 PM EDT Oxygen Saturation 95% 02/16/2025 2:23 PM EDT Inhaled Oxygen Concentration - - Weight 97.1 kg (214 lb) 02/15/2025 9:28 PM EDT Height 182.9 cm (6') 02/15/2025 9:28 PM EDT Body Mass Index 29.02 02/15/2025 9:28 PM EDT Plan of Treatment Upcoming Encounters Date Type Department Care Team (Late st Contact Info) Description 03/07/2025 2:45 PM EDT Office Visit Pulmonolgy - [address] [facility] [address] [place] [address] Jayshree Gibbs MD [address] [place] [phone] Health Maintenance Due Date Last Done Comments Diabetes: Annual Foot Exam 01/12/1968 Diabetes: Annual Retina Eye Exam 01/12/1968 Pneumococcal Vaccine: 50+ Years (2 of 2 - PCV) 06/09/2018 06/09/2017, 11/16/2015 Abdominal Aortic Aneurysm (AAA) Screen 06/13/2022 Cholesterol Screening (Lipid Panel) 06/13/2022 Colorectal Cancer Screening: Colonoscopy 06/13/2022 Hepatitis C Screening 06/13/2022 Medicare Annual Wellness Visit 06/13/2022 Social Influencers of Health Screening 06/13/2022 COVID-19 Vaccine ( season) 2024 07/14/2021, 11/16/2020, 10/19/2020 Depression Screening 07/05/2024 Diabetes: Annual Urine Albumin-Creatinine Ratio (uACR) 07/11/2024 Diabetes: Blood Sugar Control Test (HGBA1C) 07/11/2024 Influenza Vaccine (#1) 2025 , 04/01/2023, 04/28/2022, Additional history exists Falls Risk Assessment 08/07/2025 08/07/2024 Diabetes: Annual GFR (Glomerular Filtration Rate) 02/16/2026 02/16/2025, 02/15/2025, 12/11/2024, Additional history exists Hypertension/CHF/CAD Annual BMP Blood Test 02/16/2026 02/16/2025, 02/15/2025, 12/11/2024, Additional history exists DTaP,Tdap,and Td Vaccines (2 [...] Associated Diagnosis Comments CBC WITH AUTO DIFFERENTIAL Routine 02/16/2025 5:06 AM EDT BASIC METABOLIC PANEL Routine 02/16/2025 5:06 AM EDT CBC AND DIFFERENTIAL Routine 02/16/2025 5:06 AM EDT RESPIRATORY VIRUS PANEL MOLECULAR STUDY STAT 02/16/2025 3:52 AM EDT ECG ANNOTATED 02/16/2025 CBC WITH AUTO DIFFERENTIAL STAT 02/15/2025 10:27 PM EDT B-TYPE NATRIURETIC PEPTIDE STAT 02/15/2025 10:27 PM EDT CBC AND DIFFERENTIAL STAT 02/15/2025 10:27 PM EDT COMPREHENSIVE METABOLIC PANEL STAT 02/15/2025 10:27 PM EDT XR CHEST 1 VIEW STAT 02/15/2025 10:20 PM EDT ECG 12-LEAD STAT 02/15/2025 10:19 PM EDT [facility]ICAL C[facility] 30-74 MINUTES Routine 02/15/2025 9:22 PM EDT ECG ANNOTATED 12/13/2024 ECG 12-LEAD STAT 12/11/2024 [...] Maintenance Results * (ABNORMAL) CBC auto differential (02/16/2025 5:06 AM EDT) Only the most recent of3 resultswithin the time period is included. WBC 10.5 4.8 - 10.8 K/mcL LAB HEMETOLOGY METHOD 02/16/2025 5:41 AM [facility] RBC 4.90 4.50 - 5.50 M/mcL LAB HEMETOLOGY METHOD 02/16/2025 5:41 AM [facility] Hemoglobin 15.0 13.5 - 17.5 g/dL LAB HEMETOLOGY METHOD 02/16/2025 5:41 AM [facility] Hematocrit 43.9 42.0 - 54.0 % LAB HEMETOLOGY METHOD 02/16/2025 5:41 AM [facility] MCV 89.2 79.0 - 98.0 FL LAB HEMETOLOGY METHOD 02/16/2025 5:41 AM [facility] MCH 30.5 27.0 - 32.0 pcg LAB HEMETOLOGY METHOD 02/16/2025 5:41 AM [facility] MCHC 34.2 32.0 - 37.0 g/dL LAB HEMETOLOGY METHOD 02/16/2025 5:41 AM [facility] RDW 12.4 11.0 - 15.0 % LAB HEMETOLOGY METHOD 02/16/2025 5:41 AM [facility] Platelets 244 130 - 400 K/mcL LAB HEMETOLOGY METHOD 02/16/2025 5:41 AM [facility] MPV 9.2 7.0 - 11.0 FL LAB HEMETOLOGY METHOD 02/16/2025 5:41 AM [facility] NRBC 0.0 <1.0 % LAB HEMETOLOGY METHOD 02/16/2025 5:41 AM [facility] NRBC Absolute 0.00 <0.10 K/mcL LAB HEMETOLOGY METHOD 02/16/2025 5:41 AM [facility] Neutrophils Relative 96.5 % LAB HEMETOLOGY METHOD 02/16/2025 5:41 AM [facility] Lymphocytes Relative 2.4 % LAB HEMETOLOGY METHOD 02/16/2025 5:41 AM [facility] Monocytes Relative 0.5 % LAB HEMETOLOGY METHOD 02/16/2025 5:41 AM [facility] Eosinophils Relative 0.0 % LAB HEMETOLOGY METHOD 02/16/2025 5:41 AM [facility] Basophils Relative 0.2 % LAB HEMETOLOGY METHOD 02/16/2025 5:41 AM [facility] Immature Granulocytes Relative 0.4 % LAB HEMETOLOGY METHOD 02/16/2025 5:41 AM [facility] Neutrophils Absolute 10.17(H) 1.50 - 7.00 K/mcL LAB HEMETOLOGY METHOD 02/16/2025 5:41 AM [facility] Lymphocytes Absolute 0.25(L) 1.00 - 5.00 K/mcL LAB HEMETOLOGY METHOD 02/16/2025 5:41 AM [facility] Monocytes Absolute 0.05(L) 0.20 - 1.00 K/mcL LAB HEMETOLOGY METHOD 02/16/2025 5:41 AM [facility] Eosinophils Absolute 0.00 0.00 - 0.50 K/mcL LAB HEMETOLOGY METHOD 02/16/2025 5:41 AM [facility] Basophils Absolute 0.02 0.00 - 0.20 K/mcL LAB HEMETOLOGY METHOD 02/16/2025 5:41 AM [facility] Immature Granulocytes Absolute 0.04(H) 0.00 - 0.03 K/mcL LAB HEMETOLOGY METHOD 02/16/2025 5:41 AM [facility] Blood Venous blood specimen / Unknown Venipuncture / Unknown 02/16/2025 5:06 AM EDT 02/16/2025 5:31 AM EDT us Rustam HARRISON LAB BLOOD ORDERABLES Final Res ult [facility] [address] [place] [address], * (ABNORMAL) Basic metabolic panel (02/16/2025 5:06 AM EDT) Sodium 137 133 - 145 mmol/L LAB CHEMISTRY METHOD 02/16/2025 6:04 AM [facility] Potassium 4.0 3.5 - 5.5 mmol/L LAB CHEMISTRY METHOD 02/16/2025 6:04 AM [facility] Chloride 105 96 - 110 mmol/L LAB CHEMISTRY METHOD 02/16/2025 6:04 AM [facility] CO2 26 21 - 32 mmol/L LAB CHEMISTRY METHOD 02/16/2025 6:04 AM [facility] Anion Gap 6 3 - 11 LAB CHEMISTRY METHOD 02/16/2025 6:04 AM [facility] Glucose 151(H) 70 - 100 mg/dL LAB CHEMISTRY METHOD 02/16/2025 6:04 AM [facility] BUN 11 5 - 25 mg/dL LAB CHEMISTRY METHOD 02/16/2025 6:04 AM [facility] Creatinine 1.21 0.70 - 1.30 mg/dL LAB CHEMISTRY METHOD 02/16/2025 6:04 AM [facility] eGFR 66 >=60 mL/min/1. 73m2 LAB CHEMISTRY METHOD 02/16/2025 6:04 AM [facility] Comment:Calculation based on the Chronic Kidney Disease Epidemiology Collaboration (CKD-EPI) equation refit without adjustment for race. BUN/Creatinine Ratio 9.1 LAB CHEMISTRY METHOD 02/16/2025 6:04 AM [facility] Calcium 9.2 8.5 - 10.5 mg/dL LAB CHEMISTRY METHOD 02/16/2025 6:04 AM EDT [facility] Blood Venous blood specimen / Unknown Venipuncture / Unknown 02/16/2025 5:06 AM EDT 02/16/2025 5:31 AM EDT us Rustam HARRISON LAB BLOOD ORDERABLES Final Res ult [facility] [address] [place] [address], * Respiratory virus panel molecular study (02/16/2025 3:52 AM EDT) Adenovirus Detection by PCR Not Detected Not Detected LAB MICROBIOLOGY METHOD 02/16/2025 5:08 AM EDT [facility] Influenza A PCR Not Detected Not Detected LAB MICROBIOLOGY METHOD 02/16/2025 5:08 AM EDT [facility] Influenza B PCR Not Detected Not Detected LAB MICROBIOLOGY METHOD 02/16/2025 5:08 AM EDT [facility] Coronavirus 229E Not Detected Not Detected LAB MICROBIOLOGY METHOD 02/16/2025 5:08 AM EDT [facility] Coronavirus HKU1 Not Detected Not Detected LAB MICROBIOLOGY METHOD 02/16/2025 5:08 AM EDT [facility] Coronavirus OC43 Not Detected Not Detected LAB MICROBIOLOGY METHOD 02/16/2025 5:08 AM EDT [facility] Coronavirus NL63 Not Detected Not Detected LAB MICROBIOLOGY METHOD 02/16/2025 5:08 AM EDT [facility] Parainfluenza Virus 1 Not Detected Not Detected LAB MICROBIOLOGY METHOD 02/16/2025 5:08 AM EDT [facility] Parainfluenza Virus 2 Not Detected Not Detected LAB MICROBIOLOGY METHOD 02/16/2025 5:08 AM EDT [facility] Parainfluenza Virus 3 Not Detected Not Detected LAB MICROBIOLOGY METHOD 02/16/2025 5:08 AM EDT [facility] Parainfluenza Virus 4 Not Detected Not Detected LAB MICROBIOLOGY METHOD 02/16/2025 5:08 AM EDT [facility] RSV PCR Not Detected Not Detected LAB MICROBIOLOGY METHOD 02/16/2025 5:08 AM EDT [facility] Human Metapneumovirus A and B Not Detected Not Detected LAB MICROBIOLOGY METHOD 02/16/2025 5:08 AM EDT [facility] Rhinovirus/Entero virus Not Detected Not Detected LAB MICROBIOLOGY METHOD 02/16/2025 5:08 AM EDT [facility] Bordetella pertussis Not Detected Not Detected LAB MICROBIOLOGY METHOD 02/16/2025 5:08 AM [facility] Bordetella parapertussis Not Detected Not Detected LAB MICROBIOLOGY METHOD 02/16/2025 5:08 AM [facility] Mycoplasma pneumo by PCR Not Detected Not Detected LAB MICROBIOLOGY METHOD 02/16/2025 5:08 AM EDT [facility] Chlamydia pneumoniae Not Detected Not Detected LAB MICROBIOLOGY METHOD 02/16/2025 5:08 AM [facility] SARS COV-2 Not Detected Not Detected LAB MICROBIOLOGY METHOD 02/16/2025 5:08 AM [facility] Swab Nasopharyngeal structure / Unknown Non-blood Collection / Unknown 02/16/2025 3:52 AM EDT 02/16/2025 3:52 AM EDT [facility] - 02/16/2025 5:08 AM EDT Testing was performed using the [employer] Respiratory Pathogen PCR Assay. All results must [...] that are below the limit of detection. Rustam HARRISON LAB MICROBIOLOGY - GENERAL ORD ERABLES Final Result Performing Organization Address City/[facility]/ZIP Co de Phone Number [facility] [address] [place] [address], [place] [phone] * ECG-Annotated (02/16/2025) Only the most recent of2 resultswithin the time period is included. Provider Onbase MD ECG ORDERABLES Final Result * B-type natriuretic peptide (02/15/2025 10:27 PM EDT) Only the most recent of2 resultswithin the time period is included. [facility] BNP 22 <=100 pcg/mL LAB CHEMISTRY METHOD 02/15/2025 11:18 PM EDT [facility] Blood Venous blood specimen / Unknown Venipuncture / Unknown 02/15/2025 10:27 PM EDT 02/15/2025 10:33 PM EDT Tomer Holland MD LAB BLOOD ORDERABLES Final R esult Performing Organization Address City/[facility]/ZIP Co de Phone Number [facility] [address] [place] [address], [place] [phone] * (ABNORMAL) Comprehensive metabolic panel (02/15/2025 10:27 PM EDT) Only the most recent of2 resultswithin the time period is included. [facility] Sodium 137 133 - 145 mmol/L LAB CHEMISTRY METHOD 02/15/2025 11:11 PM EDT [facility] Potassium 4.1 3.5 - 5.5 mmol/L LAB CHEMISTRY METHOD 02/15/2025 11:11 PM EDT [facility] Chloride 107 96 - 110 mmol/L LAB CHEMISTRY METHOD 02/15/2025 11:11 PM EDT [facility] CO2 26 21 - 32 mmol/L LAB CHEMISTRY METHOD 02/15/2025 11:11 PM [facility] Anion Gap 4 3 - 11 LAB CHEMISTRY METHOD 02/15/2025 11:11 PM [facility] Glucose 108(H) 70 - 100 mg/dL LAB CHEMISTRY METHOD 02/15/2025 11:11 PM [facility] BUN 10 5 - 25 mg/dL LAB CHEMISTRY METHOD 02/15/2025 11:11 PM [facility] Creatinine 1.04 0.70 - 1.30 mg/dL LAB CHEMISTRY METHOD 02/15/2025 11:11 PM [facility] eGFR 79 >=60 mL/min/1. 73m2 LAB CHEMISTRY METHOD 02/15/2025 11:11 PM [facility] Comment:Calculation based on the Chronic Kidney Disease Epidemiology Collaboration (CKD-EPI) equation refit without adjustment for race. BUN/Creatinine Ratio 9.6 LAB CHEMISTRY METHOD 02/15/2025 11:11 PM [facility] Calcium 9.0 8.5 - 10.5 mg/dL LAB CHEMISTRY METHOD 02/15/2025 11:11 [facility] AST (SGOT) 20 10 - 42 unit/L LAB CHEMISTRY METHOD 02/15/2025 11:11 [facility] ALT (SGPT) 27 10 - 60 unit/L LAB CHEMISTRY METHOD 02/15/2025 11:11 PM [facility] Alkaline Phosphatase 127(H) 42 - 121 unit/L LAB CHEMISTRY METHOD 02/15/2025 11:11 PM [facility] Total Protein 6.6 6.0 - 8.0 g/dL LAB CHEMISTRY METHOD 02/15/2025 11:11 PM [facility] Albumin 3.8 3.2 - 5.0 g/dL LAB CHEMISTRY METHOD 02/15/2025 11:11 PM [facility] Total Bilirubin 0.7 0.0 - 1.4 mg/dL LAB CHEMISTRY METHOD 02/15/2025 11:11 PM EDT [facility] Blood Venous blood specimen / Unknown Venipuncture / Unknown 02/15/2025 10:27 PM EDT 02/15/2025 10:33 PM EDT us Tomer Holland MD LAB BLOOD ORDERABLES Final R esult [facility] [address] [place] [address], [place] [phone] * XR Chest 1 View (02/15/2025 10:20 PM EDT) Anatomical Region Laterality Modality Body Radiographic Isabel ging 02/16/2025 8:47 AM EDT Impressions 02/16/2025 8:48 AM EDT No acute findings. -------- FINAL REPORT -------- Dictated By: Raphael Denton Dictated Date: 02/16/2025 08:47 ET Assigned Physician: Raphael Denton Reviewed and Electronically Signed By: Raphael Denton Signed Date: 02/16/2025 08:48 ET Workstation ID: [id number] Transcribed By: Self Edit Transcribed Date: 02/16/2025 08:47 ET Narrative 02/16/2025 8:48 AM EDT PROCEDURE: AP chest radiograph. HISTORY: dyspnea. COMPARISON: 12/13/2024. FINDINGS: Similar appearance to the previous study, with biapical hyperlucencies and patchy bibasilar opacities suggesting scarring or possibly volume loss. Unchanged cardiomediastinal contours. No pneumothorax or pleural effusion. No pulmonary edema. Procedure Note Raphael Denton MD - 02/16/2025 PROCEDURE: AP chest radiograph. HISTORY: dyspnea. COMPARISON: 12/13/2024. FINDINGS: Similar appearance to the previous study, with biapical hyperlucencies andpatchy bibasilar opacities suggesting scarring or possibly volume loss.Unchanged cardiomediastinal contours. No pneumothorax or pleuraleffusion. No pulmonary edema. IMPRESSION: No acute findings. -------- FINAL REPORT -------- Dictated By: Raphael Denton Dictated Date: 02/16/2025 08:47 ET Assigned Physician: Raphael Denton Reviewed and Electronically Signed By: Raphael Denton Signed Date: 02/16/2025 08:48 ET Workstation ID: [id number] Transcribed By: Self Edit Transcribed Date: 02/16/2025 08:47 ET us Tomer Holland MD IMG XR PROCEDURES Final Resu lt * Electrocardiogram, 12 lead (02/15/2025 10:19 PM EDT) Only the most recent of3 resultswithin the time period is included. Ventricular Rate ECG 88 BPM GEMUSE Atrial Rate 88 BPM GEMUSE P-R Interval 140 ms GEMUSE QRS Duration 146 ms GEMUSE Q-T Interval 390 ms GEMUSE QTc 471 ms GEMUSE P Wave [place] 48 degrees GEMUSE R [place] 86 degrees GEMUSE T [place] 53 degrees GEMUSE ECG Interpretation Normal sinus rhythm Right bundle branch block Abnormal ECG When compared with ECG of 11-DEC-2024 13:47, No significant change was found Confirmed by MD BETHANY, ELLIOTT ([id number]) on 02/16/2025 7:58:16 AM GEMUSE 02/15/2025 10:1 9 PM EDT 02/16/2025 7:58 AM EDT us Tomer Holland MD ECG ORDERABLES Final Result GEMUSE * [facility]ICAL [facility] 30-74 MINUTES (02/15/2025 9:22 PM EDT) Narrative Tomer Holland MD - 02/15/2025 9:22 PM EDT Tomer Holland MD 02/16/2025 1:07 AM Critical Care Performed by: Tomer Holland MD Authorized by: Tomer Holland MD Critical care provider statement: Critical care time (minutes): 40 Total face to face critical care time (minutes): 20 Critical care time was exclusive of: Separately billable procedures and treating other patients Critical care was necessary to treat or prevent imminent or life-threatening deterioration of the following conditions: Cardiac failure, respiratory failure and shock Critical care was time spent personally by me on the following activities: Pulse oximetry, blood draw for specimens, ordering and performing treatments and interventions, ordering and review of laboratory studies, ordering and review of radiographic studies and review of old charts Face to face critical care was time spent personally by me on the following activities: Development of treatment plan with patient or surrogate, evaluation of patient's response to treatment, examination of patient, pulse oximetry and re-evaluation of patient's condition I assumed direction of critical care for this patient from another provider in my specialty: no Care discussed with: admitting provider Comments: COPD exacerbation requiring multiple DuoNeb treatments us Tomer Holland MD IN CLINIC/BEDSIDE ORDERABLES Final Result * XR Chest 2 Views (12/11/2024 1:20 [...] Signed Date: 12/11/2024 13:31 ET Workstation ID: [id number] Transcribed By: Self Edit Transcribed Date: 12/11/2024 [...] Signed Date: 12/11/2024 13:31 ET Workstation ID: [id number] Transcribed By: Self Edit Transcribed Date: 12/11/2024 13:29 ET us Philip Collins MD IMG XR PROCEDURES Final Resu lt * Magnesium (12/11/2024 12:13 PM EDT) [facility] Magnesium 2.0 1.9 - 2.6 mg/dL LAB CHEMISTRY METHOD 12/11/2024 1:33 PM EDT [facility] Blood Venous blood specimen / Unknown Venipuncture / Unknown 12/11/2024 12:13 PM EDT 12/11/2024 12:45 PM EDT us Philip Collins MD LAB BLOOD ORDERABLES Final R esult Performing Organization Address City/[facility]/ZIP Co de Phone Number [facility] [address] [place] [address], [place] [phone] * Lipase (12/11/2024 12:13 PM EDT) [facility] Lipase 46 13 - 75 unit/L LAB CHEMISTRY METHOD 12/11/2024 1:33 PM EDT [facility] Blood Venous blood specimen / Unknown Venipuncture / Unknown 12/11/2024 12:13 PM EDT 12/11/2024 12:45 PM EDT us Philip Collins MD LAB BLOOD ORDERABLES Final R esult [facility] [address] [place] [address], [place] [phone] * CT LUNG SCREENING LOW DOSE (06/29/2023 6:57 AM EST) Anatomical Region Laterality Modality Computed Tomogra phy 06/15/2023 1:42 PM EST Narrative 06/29/2023 6:57 AM EST [facility] Diagnostic Imaging Department [address] [place] [id number] Patient: ANNA JACKSON Jennifer /Age/Sex: 1960 - 63 - M Unit#: [id number] [facility] CLI Mnemonic/Ordering Site: [facility] Ordering Physician: SHARIF ALY MD CT Lung Screening Low Dose - 06/15/23 - 1351 Report Status:Signed Indication: Greater than 20 total pack-year smoking history, asymptomatic former smoker Technique: Low-dose CT scan of the chest obtained as a lung cancer screening study. Multiplanar reformatted images were obtained. Dose reduction technique: ASIR (Adaptive statistical iterative reconstruction) and/or AEC (automated exposure control) COMPARISON: [id number]. FINDINGS: Lack of intravenous contrast limits evaluation [...] MD Dic Date/Time: 06/29/23645 Sign date/Time: 06/29/23656 Procedure Note Jhonny Patel MD - 08/10/2023 [facility] Diagnostic Imaging Department [address] [place] [place] [address] Patient: ANNA JACKSON /Age/Sex: 1960 - 63 - M Unit#: [id number] Location/Status: SPDICATLS/REG CLI Mnemonic/Ordering Site: [facility] Ordering Physician: SHARIF ALY MD CT Lung Screening Low Dose - 06/15/23 - 1351 Report Status:Signed Indication: Greater than 20 total pack-year smoking history,asymptomatic former smoker Technique: Low-dose CT scan of the chest obtained as a lung cancerscreening study. Multiplanar reformatted images were obtained. Dose reductiontechnique: ASIR (Adaptive statistical iterative reconstruction) and/or AEC(automated exposure control) COMPARISON: [id number]. 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
--- OUTSIDE RECORDS SUMMARY | 2025-02-28 12:03 | XMS_ITS | Encounter Summary ---
Author Organization [facility] Address [address] [place] [address] Care Team Providers Care Freelance Photographer Name Role Phone Sanju Disla MD Primary Care Provider Unava ilable Reason for Visit * Reason Onset Date Comments Faxed Refill 05/09/2018 Encounter Details Date Type Department Care Team Description 05/09/2018 Refill Pulmonology - [address] [place] [phone] Roxana Perez NP Faxed Refill Social History Tobacco Use Types Packs/Day Years [...] encounter Miscellaneous Notes * Telephone Encounter - Candice Phillips M.A. - 05/09/2018 2:51 PM EST Has an appt with you 06/23/18 thanks * Telephone Encounter - Gunjan Pedro - 05/09/2018 2:45 PM EST Patient would like script to be: E-PRESCRIBED/FAXED TO PHARMACY WHEN WAS THE PATIENT'S LAST APPOINTMENT WITH THE PRESCRIBING PROVIDER? 12/27/17 Does patient have an upcoming appointment? Yes 06/17/18 (THE MEDICATION REQUESTED IS ON THE MED LIST ABOVE) All of the medications requested were on the CURRENT MEDS list Did you check the Pharmacy information above?: YES Patient wants: 30 -day supply Is this a mail order prescription request ? NO Patients current insurance carrier is: [place] / [place] / Product Type: MEDICARE [id number] documented in this encounter Plan of Treatment Not on file documented as of this encounter Visit Diagnoses Not on filedocumented in this encounter Care Teams Freelance Photographer Relationship Specialty Start Date End Date Sanju Disla MD PCP - General 05/07/1997 documented as of this encounter
--- OUTSIDE RECORDS SUMMARY | 2025-02-28 12:03 | XMS_ITS | Encounter Summary ---
Author Organization [facility] Address [address] [place] [address] Care Team Providers Care Hay Rake Operator Name Role Phone Sanju Disla MD Primary Care Provider Unava ilable Reason for Visit * Reason Comments E-prescribe Rx Request Encounter Details Date Type Department Care Team Description 02/04/2022 Refill Pulmonology - [place] 175 [facility] [address] [place] [address] Jayshree Gibbs MD [address] [place] [phone] E-prescribe Rx Request Social History Tobacco Use [...] Recorded In the last 10 days, have yo u been in contact with someone who was confirmed or suspected to have Coronavirus/COVID-19? No / Unsure 01/19/2022 9:53 AM EDT documented as of this encounter Miscellaneous Notes * Telephone Encounter - Dalila Akhtar - 02/09/2022 2:12 PM EDT Patient calling for this medication * Telephone Encounter - Dalila Akhtar - 02/06/2022 3:19 PM EDT Patient would like script to be: E-PRESCRIBED/FAXED TO PHARMACY WHEN WAS THE PATIENT'S LAST APPOINTMENT IN ADULT MEDICINE? 01/19/22 WHEN WAS THE LAST TIME THE PATIENT SAW THEIR PCP? 01/19/22 Does patient have an upcoming appointment? Yes 04/28/22 (THE MEDICATION REQUESTED IS ON THE MED [...] / [place] / Product Type: MEDICARE [id number] documented in this encounter Plan of Treatment Not on file documented as of this encounter Visit Diagnoses Not on filedocumented in this encounter Care Teams Hay Rake Operator Relationship Specialty Start Date End Date Sanju Disla MD PCP - General 05/07/1997 documented as of this encounter
--- OUTSIDE RECORDS SUMMARY | 2025-02-28 12:03 | XMS_ITS | Encounter Summary ---
Author Organization [facility] Address [address] [place] [address] Care Team Providers Care Curing Room Worker Name Role Phone Sanju Disla MD Primary Care Provider Kirk mendez Encounter Details Date Type Department Care Team Description 12/15/2023 Telephone Pulmonology - [place] 175 [facility] [address] [place] [address] Jayshree Gibbs MD [address] [place] [address] Social History Tobacco Use Types [...] encounter Miscellaneous Notes * Telephone Encounter - Josias Rayo CMA - 12/15/2023 9:27 AM EDT Pt appt for tomorrow at 11:45 am pt informed. * Telephone Encounter - Ty Bobo - 12/15/2023 9:03 AM EDT Patient needs a pulmonary clerance for Urelogy for his kidney stone, Lithotripsy procedure on 01/19/24. Please call judy @ [phone] option #3 to schedule patient appt For clerance documented in this encounter Plan of Treatment Not on file documented as of this encounter Visit Diagnoses Not on filedocumented in this encounter Care Teams Curing Room Worker Relationship Specialty Start Date End Date Sanju Disla MD PCP - General 05/07/1997 documented as of this encounter
--- OUTSIDE RECORDS SUMMARY | 2025-02-28 12:03 | XMS_ITS | Encounter Summary ---
Author Organization [facility] Address [address] [place] [address] Care Team Providers Care Apprentice Technician Name Role Phone Sanju Disla MD Primary Care Provider Unava ilable Reason for Visit * Reason Comments E-prescribe Rx Request Encounter Details Date Type Department Care Team Description 07/22/2022 Refill Pulmonology - [place] 175 [facility] [address] [place] [phone] Jayshree Gibbs MD [address] [place] [phone] E-prescribe Rx Request Social History Tobacco Use [...] Telephone Encounter - Josias Rayo CMA - 07/24/2022 4:55 PM EST TIFFANIE 04/28/22 NOV 08/31/22 * Telephone Encounter - Ibeth Maldonado - 07/23/2022 8:42 AM EST Patient would like script to be: E-PRESCRIBED/FAXED TO PHARMACY WHEN WAS THE PATIENT'S LAST APPOINTMENT IN ADULT MEDICINE? 04/28/22 WHEN WAS THE LAST TIME THE PATIENT SAW THEIR PCP? Same as above Does patient have an upcoming appointment? Yes 08/31/22 (THE MEDICATION REQUESTED IS ON THE MED [...] / [place] / Product Type: MEDICARE [id number] documented in this encounter Plan of Treatment Not on file documented as of this encounter Visit Diagnoses Diagnosis Chronic obstructive pulmonary disease, unspecified COPD type (HCC) documented in this encounter Care Teams Apprentice Technician Relationship Specialty Start Date End Date Sanju Disla MD PCP - General 05/07/1997 documented as of this encounter
--- OUTSIDE RECORDS SUMMARY | 2025-02-28 12:03 | XMS_ITS | Encounter Summary ---
Author Organization [facility] Address [address] [place] [address] Care Team Providers Care Neck Band Setter Name Role Phone Sanju Disla MD Primary Care Provider Unava ilable Reason for Visit * Reason Comments E-prescribe Rx Request Encounter Details Date Type Department Care Team Description 11/21/2017 Refill Pulmonology - [address] [place] [phone] Roxana Perez NP E-prescribe Rx Request Social History Tobacco Use [...] encounter Miscellaneous Notes * Telephone Encounter - Roxana Perez NP - 11/22/2017 12:31 PM EDT sent * Telephone Encounter - Peggy Marks - 11/22/2017 8:24 AM EDT Patient would like script to be: {RX REFILL WHEN WAS THE PATIENT'S LAST APPOINTMENT WITH THE PRESCRIBING PROVIDER? 08/27/17 Does patient have an upcoming appointment? Yes (THE MEDICATION REQUESTED IS ON THE MED LIST ABOVE) All of the medications requested were on the CURRENT MEDS list Did you check the Pharmacy information above?: YES Patient wants: 30 -day supply Is this a mail order prescription request ? NO Patients current insurance carrier is: Payor: MEDICARE-gdgt / Plan: MEDICARE-gdgt / Product Type: MEDICARE [id number] documented in this encounter Plan of Treatment Not on file documented as of this encounter Visit Diagnoses Not on filedocumented in this encounter Care Teams Neck Band Setter Relationship Specialty Start Date End Date Sanju Disla MD PCP - General 05/07/1997 documented as of this encounter
--- OUTSIDE RECORDS SUMMARY | 2025-02-28 12:03 | XMS_ITS | Encounter Summary ---
Author Organization [facility] Address [address] [place] [address] Care Team Providers Care Information Clerk Cashier Name Role Phone Sanju Disla MD Primary Care Provider Unava ilable Reason for Visit * Reason Onset Date Comments refill request 05/14/2021 Encounter Details Date Type Department Care Team Description 05/14/2021 Refill Pulmonology - [place] 175 [facility] [address] [place] [phone] Jayshree Gibbs MD [address] [place] [phone] refill request Social History Tobacco Use Types Packs/Day Years [...] encounter Miscellaneous Notes * Telephone Encounter - Birgit Sierra - 05/14/2021 11:00 AM EST Last OV- 04/07/2021 Next Appt- 05/15/2021 * Telephone Encounter - Darlene Barcenas - 05/14/2021 10:55 AM EST Patient would like script to be: E-PRESCRIBED/FAXED TO PHARMACY WHEN WAS THE PATIENT'S LAST APPOINTMENT WITH THE PRESCRIBING PROVIDER? 04/07/21 Does patient have an upcoming appointment? Yes 05/15/21 (THE MEDICATION REQUESTED IS ON THE MED LIST ABOVE) All of the medications requested were on the CURRENT MEDS list Did you check the Pharmacy information above?: YES Patient wants: 90 -day supply Is this a mail order prescription request ? YES Patients current insurance carrier is: [place] / [place] / Product Type: MEDICARE [id number] documented in this encounter Plan of Treatment Not on file documented as of this encounter Visit Diagnoses Diagnosis Severe chronic obstructive pulmonary disease (HCC) Chronic airway obstruction, not elsewhere classified documented in this encounter Care Teams Information Clerk Cashier Relationship Specialty Start Date End Date Sanju Disla MD PCP - General 05/07/1997 documented as of this encounter
--- OUTSIDE RECORDS SUMMARY | 2025-02-28 12:03 | XMS_ITS | Encounter Summary ---
Author Organization [facility] Address [address] [place] [address] Care Team Providers Care Intervention Manager Name Role Phone Sanju Disla MD Primary Care Provider Unava ilable Encounter Details Date Type Department Care Team Description 09/01/2017 Release of Information Medical Records [address] [place] [id number] Abstract, Provider Social History Tobacco Use Types [...] on filedocumented in this encounter Care Teams Intervention Manager Relationship Specialty Start Date End Date Sanju Disla MD PCP - General 05/07/1997 documented as of this encounter
--- OUTSIDE RECORDS SUMMARY | 2025-02-28 12:03 | XMS_ITS | Patient Health Record ---
Author Organization [facility] Address [address] [place] [address] Care Team Providers Care Mine Boss Name Role Phone Naif RUCKER, Sebree Primary Care Provider Rustam Vega Jr Unavailable Reason For Referral No Information Medications Medication [...] Insured Coverage Start Date Coverage End Date TOTAL CARE/ 21-64 Yrs [address] [address] [place] [address] [id number] ANNA MCKEON Self - patient is the insured Medicare of [facility] [address] [place] [address] [id number] ANNA MCKEON Self - patient is the insured MEDICAID OF [facility] [address] [place] [address] [id number] ANNA MCKEON Self - patient is the insured Medical (General) History Medical History History ICD Code colonoscopy 11-07-2008 colon polyps asthma bronchitis elevated cholesterol hypertension Surgical History Surgery Date(Month/Year) knee arthroscopy
--- OUTSIDE RECORDS SUMMARY | 2025-02-28 12:03 | XMS_ITS | Encounter Summary ---
Author Organization [facility] Address [address] [place] [address] Care Team Providers Care City Planning Aide Name Role Phone Sanju Disla MD Primary Care Provider Unava ilable Reason for Visit * Reason Comments E-prescribe Rx Request Encounter Details Date Type Department Care Team Description 05/11/2022 Refill Pulmonology - [place] 175 [facility] [address] [place] [address] Jayshree Gibbs MD [address] [place] [phone] E-prescribe Rx Request Social History Tobacco Use [...] suspected to have Coronavirus/COVID-19? No / Unsure 04/28/2022 2:03 PM EDT documented as of this encounter Miscellaneous Notes * Telephone Encounter - Ping Valdez - 05/12/2022 8:47 AM EST Patient would like script to [...] insurance carrier is: [place] / Plan: [place] / Product Type: MEDICARE [id number] documented in this encounter Plan of Treatment Not on file documented as of this encounter Visit Diagnoses Not on filedocumented in this encounter Care Teams City Planning Aide Relationship Specialty Start Date End Date Sanju Disla MD PCP - General 05/07/1997 documented as of this encounter
--- OUTSIDE RECORDS SUMMARY | 2025-02-28 12:03 | XMS_ITS | Encounter Summary ---
Author Organization [facility] Address [address] [place] [address] Care Team Providers Care Bag Printer Name Role Phone Sanju Disla MD Primary Care Provider Unava ilable Reason for Visit * Reason Comments E-prescribe Rx Request Encounter Details Date Type Department Care Team Description 05/20/2019 Refill Pulmonology - [place] 175 [facility] [address] [place] [address] Jayshree Gibbs MD [address] [place] [address] E-prescribe Rx Request Social History Tobacco Use [...] encounter Miscellaneous Notes * Telephone Encounter - Marichuy Carlin - 05/21/2019 1:37 PM EST Patient would like script to be: E-PRESCRIBED/FAXED TO PHARMACY WHEN WAS THE PATIENT'S LAST APPOINTMENT WITH THE PRESCRIBING PROVIDER? 01/04/2019 Does patient have an upcoming appointment? Yes 07/21/2019 (THE MEDICATION REQUESTED IS ON THE MED LIST ABOVE) All of the medications requested were on the CURRENT MEDS list Did you check the Pharmacy information above?: YES Patient wants: 30 -day supply Is this a mail order prescription request ? NO Patients current insurance carrier is: Payor: MEDICARE-[employer] / Plan: MEDICARE-[employer] / Product Type: MEDICARE [id number] documented in this encounter Plan of Treatment Not on file documented as of this encounter Visit Diagnoses Not on filedocumented in this encounter Care Teams Bag Printer Relationship Specialty Start Date End Date Sanju Disla MD PCP - General 05/07/1997 documented as of this encounter
--- OUTSIDE RECORDS SUMMARY | 2025-02-28 12:03 | XMS_ITS | Encounter Summary ---
Author Organization [facility] Address [address] [place] [address] Care Team Providers Care Biomedical Electronics Technician Name Role Phone Sanju Disla MD Primary Care Provider Unava ilable Reason for Visit * Reason Comments E-prescribe Rx Request Encounter Details Date Type Department Care Team Description 12/22/2021 Refill Pulmonology - [place] 175 [facility] [address] [place] [address] Jayshree Gibbs MD [address] [place] [phone] E-prescribe Rx Request Social History Tobacco Use [...] * Telephone Encounter - Ping Valdez - 12/22/2021 4:32 PM EDT Patient would like script to be: E-PRESCRIBED/FAXED TO PHARMACY WHEN WAS THE PATIENT'S LAST APPOINTMENT IN ADULT MEDICINE? 09/15/21 WHEN WAS THE LAST TIME THE PATIENT SAW THEIR PCP? Same as above Does patient have an upcoming appointment? Yes 01/16/22 (THE MEDICATION REQUESTED IS ON THE MED [...] insurance carrier is: [place] / Plan: MEDICARE-[id number] / Product Type: MEDICARE [id number] documented in this encounter Plan of Treatment Not on file documented as of this encounter Visit Diagnoses Diagnosis Severe chronic obstructive pulmonary disease (HCC) Chronic airway obstruction, not elsewhere classified documented in this encounter Care Teams Biomedical Electronics Technician Relationship Specialty Start Date End Date Sanju Disla MD PCP - General 05/07/1997 documented as of this encounter
--- OUTSIDE RECORDS SUMMARY | 2025-02-28 12:03 | XMS_ITS | Encounter Summary ---
Author Organization [facility] Address [address] [place] [address] Care Team Providers Care Industrial Conveyor Belt Repairer Name Role Phone Sanju Disla MD Primary Care Provider Unava ilable Reason for Visit * Reason Comments E-prescribe Rx Request Encounter Details Date Type Department Care Team Description 07/27/2022 Refill Pulmonology - [place] 175 [facility] [address] [place] [address] Jayshree Gibbs MD [address] [place] [phone] E-prescribe Rx Request Social History Tobacco Use [...] encounter Miscellaneous Notes * Telephone Encounter - Ty Bobo - 07/27/2022 4:49 PM EST [facility] mail delivery services is requesting refill request for patient Ventjacqueline HFA 108 (90base) MCG/ACT aero soln * Telephone Encounter - Ty Bobo - 07/27/2022 4:47 PM EST Patient would like script to be: E-PRESCRIBED/FAXED TO PHARMACY WHEN WAS THE PATIENT'S LAST APPOINTMENT IN ADULT MEDICINE? 04/28/2022 WHEN WAS THE LAST TIME THE PATIENT SAW THEIR PCP? Same as above Does patient have an upcoming appointment? Yes 08/31/2022 (THE MEDICATION REQUESTED IS ON THE MED [...] / [place] / Product Type: MEDICARE [id number] documented in this encounter Plan of Treatment Not on file documented as of this encounter Visit Diagnoses Not on filedocumented in this encounter Care Teams Industrial Conveyor Belt Repairer Relationship Specialty Start Date End Date Sanju Disla MD PCP - General 05/07/1997 documented as of this encounter
--- OUTSIDE RECORDS SUMMARY | 2025-02-28 12:04 | XMS_ITS | Encounter Summary ---
Author Organization [facility] Address [address] [place] [address] Care Team Providers Care Oil Refinery Operator Name Role Phone Sanju Disla MD Primary Care Provider Unava ilable Reason for Visit * Reason Comments E-prescribe Rx Request Encounter Details Date Type Department Care Team Description 10/11/2020 Refill Pulmonology - [place] [address] [facility] [address] [place] [phone] Jayshree Gibbs MD [address] [place] [phone] E-prescribe Rx Request Social History Tobacco Use [...] encounter Miscellaneous Notes * Telephone Encounter - Alexandra Palacios - 10/23/2020 2:18 PM EDT TIFFANIE 06/03/2020 NOV 11/18/2020 documented in this encounter Plan of Treatment Not on file documented as of this encounter Visit Diagnoses Not on filedocumented in this encounter Care Teams Oil Refinery Operator Relationship Specialty Start Date End Date Sanju Disla MD PCP - General 05/07/1997 documented as of this encounter
--- OUTSIDE RECORDS SUMMARY | 2025-02-28 12:04 | XMS_ITS | Encounter Summary ---
Author Organization [facility] Address [address] [place] [address] Care Team Providers Care Research Associate Policy Name Role Phone Sanju Disla MD Primary Care Provider Unava ilable Reason for Visit * Reason Onset Date Comments Medication 03/23/2019 Encounter Details Date Type Department Care Team Description 03/23/2019 Refill Pulmonology - [place] 175 [facility] [address] [place] [phone] Jayshree Gibbs MD [address] [place] [phone] Medication Social History Tobacco Use Types Packs/Day Years [...] encounter Miscellaneous Notes * Telephone Encounter - Kaci Joseph M.A. - 03/23/2019 11:08 AM EDT I do not see Prednison ania file ?? * Telephone Encounter - Luli Stevenson - 03/23/2019 9:07 AM EDT Patient would like script to be: E-PRESCRIBED/FAXED TO PHARMACY When was the patients last office visit in Adult Medicine?: 01/04/19 When was the last time the patient saw their PCP? Same as above Does patient have an upcoming appointment? Yes 07/21/[address] Gibbs (THE MEDICATION IS NOT ON THE MED LIST AND IS IDENTIFIED BELOW): {MED LIST:01747) Med name: predniSONE (DELTASONE) 20 Dosage: 20 MG tablet # of tablets: Unknown Local pharmacy with request for 30 -day supply Instructions: Unknown Did you check the pharmacy information above?: YES Patients current insurance [place]: [place] / [place]: [place] / Product Type: MEDICAREFEE-FOR-SERVICE documented in this encounter Plan of Treatment Not on file documented as of this encounter Visit Diagnoses Diagnosis Pulmonary emphysema, unspecified emphysema type (HCC)- Primary documented in this encounter Care Teams Research Associate Policy Relationship Specialty Start Date End Date Sanju Disla MD PCP - General 05/07/1997 documented as of this encounter
--- OUTSIDE RECORDS SUMMARY | 2025-02-28 12:04 | XMS_ITS | Encounter Summary ---
Author Organization [facility] Address [address] [place] [address] Care Team Providers Care Legal Manager Name Role Phone Sanju Disla MD Primary Care Provider Unava ilable Reason for Visit * Reason Comments E-prescribe Rx Request Encounter Details Date Type Department Care Team Description 08/29/2020 Refill Pulmonology - [place] 175 [facility] [address] [place] [phone] Jayshree Gibbs MD [address] [place] [phone] E-prescribe Rx Request Social History Tobacco Use [...] encounter Miscellaneous Notes * Telephone Encounter - Bernadette Ruiz M.A. - 09/04/2020 4:14 PM EST Please review. Update directions and resend * Telephone Encounter - Deb Howard - 08/30/2020 2:24 PM EST Patient would like script to be: E-PRESCRIBED/FAXED TO PHARMACY WHEN WAS THE PATIENT'S LAST APPOINTMENT WITH THE PRESCRIBING PROVIDER? 06/03/20 Does patient have an upcoming appointment? Yes 11/18/20 (THE MEDICATION REQUESTED IS ON THE MED LIST ABOVE) All of the medications requested were on the CURRENT MEDS list Did you check the Pharmacy information above?: YES Patient wants: 30 -day supply Is this a mail order prescription request ? NO Patients current insurance [place] is: [place] / [place] / Product Type: [place]ICARE [id number] documented in this encounter Plan of Treatment Not on file documented as of this encounter Visit Diagnoses Not on filedocumented in this encounter Care Teams Legal Manager Relationship Specialty Start Date End Date Sanju Disla MD PCP - General 05/07/1997 documented as of this encounter
--- OUTSIDE RECORDS SUMMARY | 2025-02-28 12:04 | XMS_ITS | Encounter Summary ---
Author Organization [facility] Address [address] [place] [address] Care Team Providers Care Jacquard Card Lacer Name Role Phone Sanju Disla MD Primary Care Provider Unava ilable Reason for Visit * Reason Onset Date Comments Shortness Of Breath 12/13/2019 Encounter Details Date Type Department Care Team Description 12/13/2019 Telephone Pulmonology - [place] [address] [facility] [address] [place] [address] Jayshree Gibbs MD [address] [place] [address] Shortness Of Breath Social History Tobacco Use Types Packs/Day Years [...] encounter Miscellaneous Notes * Telephone Encounter - Jayshree Gibbs MD - 12/14/2019 4:50 PM EDT Spoke with him, 3 er visit for SOB. No fever or cough, just SOB. Covid-19 test negative x 3. Pt wants to be seen, please have him see me bucky at 3 pm * Telephone Encounter - Lisandra Flores M.A. - 12/14/2019 2:06 PM EDT Spoke with patient and he is complaining of SOB more than usual wondering if you can see him. * Telephone Encounter - Megan Dumont - 12/13/2019 4:28 PM EDT Symptoms patient is having: increased shortness of breath, not new for him but hasn't jhappened in a bit For ALL patients calling to schedule any appointment (routine, sick visit, follow up, consult, etc.) in the outpatient setting please ask the following questions. ??? Do you have fever of higher than 101, sore throat with difficulty swallowing or severe shortness of breath? NO If YES any of these above symptoms send a message to triage and do not book. Red dot. If no, an audio or video visit should be booked. ??? Have you had close contact with someone with Coronavirus in the last 14 days? NO ??? Have you traveled abroad? NO ??? Have you been to [place] or in contact with anyone who has recently been in [place]? NO If pain or injury related was it due to an accident at work or from a motor vehicle accident? NO If yes, gather 3rd constitution party insurance information Date of accident/Injury: n/a How long has patient had these symptoms?: last couple hours PCP: Sanju Disla [place] / [place] / Product Type: MEDICARE [id number] documented in this encounter Plan of Treatment Not on file documented as of this encounter Visit Diagnoses Not on filedocumented in this encounter Care Teams Jacquard Card Lacer Relationship Specialty Start Date End Date Sanju Disla MD PCP - General 05/07/1997 documented as of this encounter
--- OUTSIDE RECORDS SUMMARY | 2025-02-28 12:04 | XMS_ITS | Encounter Summary ---
Author Organization [facility] Address [address] [place] [address] Care Team Providers Care Dried Fruit Washer Name Role Phone Sanju Disla MD Primary Care Provider Unava ilable Reason for Visit * Reason Comments E-prescribe Rx Request Encounter Details Date Type Department Care Team Description 07/11/2018 Refill Pulmonology - [place] 175 [facility] [address] [place] [phone] Edy Bethea MD E-prescribe Rx Request Social History Tobacco Use Types Packs/Day Years Used Date Smoking Tobacco: Former Cigarettes 0.5 47 1 971 - 09/02/2017 Smokeless Tobacco: Former Quit: 02/2018 Alcohol Use Standard Drinks/Week Comments Yes 0 (1 standard drink = 0.6 oz pur e alcohol) Sex Assigned at Date Recorded Not on file Job Start Date Occupation Industry Not on file Not on file Not on file documented as of this encounter Miscellaneous Notes * Telephone Encounter - Marichuy Carlin - 07/11/2018 3:05 PM EST Patient would like script to be: E-PRESCRIBED/FAXED TO PHARMACY WHEN WAS THE PATIENT'S LAST APPOINTMENT WITH THE PRESCRIBING PROVIDER? 06/23/2018 Does patient have an upcoming appointment? Yes 09/22/2018 (THE MEDICATION REQUESTED IS ON THE MED LIST ABOVE) All of the medications requested were on the CURRENT MEDS list Did you check the Pharmacy information above?: YES Patient wants: 30 -day supply Is this a mail order prescription request ? NO Patients current insurance carrier is: Payor: MEDICARE-[employer] / Plan: MEDICARE-[employer] / Product Type: MEDICARE [id number] documented in this encounter Plan of Treatment Not on file documented as of this encounter Visit Diagnoses Not on filedocumented in this encounter Care Teams Dried Fruit Washer Relationship Specialty Start Date End Date Sanju Disla MD PCP - General 05/07/1997 documented as of this encounter
--- OUTSIDE RECORDS SUMMARY | 2025-02-28 12:04 | XMS_ITS | Encounter Summary ---
Author Organization [facility] Address [address] [place] [address] Care Team Providers Care Three Knife Trimmer Name Role Phone Sanju Disla MD Primary Care Provider Kirk mendez Encounter Details Date Type Department Care Team Description 01/20/2024 Orders Only Pulmonology - [place] [address] [address] Jaelyn Blackwell MD [address] [phone] Social History Tobacco Use Types Packs/Day Years [...] on filedocumented in this encounter Care Teams Three Knife Trimmer Relationship Specialty Start Date End Date Sanju Disla MD PCP - General 05/07/1997 documented as of this encounter
--- OUTSIDE RECORDS SUMMARY | 2025-02-28 12:04 | XMS_ITS | Encounter Summary ---
Author Organization [facility] Address [address] [place] [address] Care Team Providers Care Street Car Mechanic Name Role Phone Sanju Disla MD Primary Care Provider Kirk ilable Encounter Details Date Type Department Care Team Description 10/14/2020 Orders Only Pulmonology - [place] 175 [facility] [address] [place] [address] Jayshree Gibbs MD [address] [place] [phone] Pulmonary emphysema, unspecified emphysema type (HCC) Social History Tobacco Use Types Packs/Day Years [...] on file documented as of this encounter Procedures Procedure Name Priority Date/Time Associated Diagnosis Comments OH NONINVASIVE EAR/PULSE OXIMETRY OVERNIGHT MONITOR Routine 09/05/2020 Pulmonary emphysema, unspecified emphysema type (HCC) documented in this encounter Results * OXIMETRY,OVERNITE (09/05/2020) Jayshree Gibbs MD PERFORMABLES documented in this encounter Visit Diagnoses Diagnosis Pulmonary emphysema, unspecified emphysema type (HCC) documented in this encounter Care Teams Street Car Mechanic Relationship Specialty Start Date End Date Sanju Disla MD PCP - General 05/07/1997 documented as of this encounter
--- OUTSIDE RECORDS SUMMARY | 2025-02-28 12:04 | XMS_ITS | Encounter Summary ---
Author Organization [facility] Address [address] [place] [address] Care Team Providers Care Pinball Machine Repairer Name Role Phone Sanju Disla MD Primary Care Provider Unanas ilable Encounter Details Date Type Department Care Team Description 09/20/2023 Orders Only [facility] Lung Screening Program [place] [address] [facility] [address] [place] [phone] Eric Sellers PA-C [address] [facility] [address] [place] [phone] Pulmonary nodule Social History Tobacco Use Types Packs/Day Years [...] Procedure Name Priority Date/Time Associated Diagnosis Comments CAT SCAN OF CHEST NO CONTRAST Routine 09/18/2023 Pulmonary nodule documented in this encounter Results * CAT SCAN OF CHEST NO CONTRAST (09/18/2023) 09/18/[address] Sellers PA-C [facility] documented in this encounter Visit Diagnoses Diagnosis Pulmonary nodule Solitary pulmonary nodule documented in this encounter Care Teams Pinball Machine Repairer Relationship Specialty Start Date End Date Sanju Disla MD PCP - General 05/07/1997 documented as of this encounter
--- OUTSIDE RECORDS SUMMARY | 2025-02-28 12:04 | XMS_ITS | Encounter Summary ---
Author Organization [facility] Address [address] [place] [address] Care Team Providers Care Hull Grinder Name Role Phone Sanju Disla MD Primary Care Provider Kirk mendez Encounter Details Date Type Department Care Team Description 06/03/2020 Solid Glass Rod Dowel Machine Operator Report Medical Records [address] [place] [address] González Conley MD Social History Tobacco Use Types Packs/Day Years [...] or suspected to have Coronavirus / COVID-19? Unable to assess 06/03/2020 8:23 AM EST documented as of this encounter Plan of Treatment Not on file documented as of this encounter Visit Diagnoses Not on filedocumented in this encounter Care Teams Hull Grinder Relationship Specialty Start Date End Date Sanju Disla MD PCP - General 05/07/1997 documented as of this encounter
--- OUTSIDE RECORDS SUMMARY | 2025-02-28 12:04 | XMS_ITS | Encounter Summary ---
Author Organization [facility] Address [address] [place] [address] Care Team Providers Care Compliance Representative Name Role Phone Sanju Disla MD Primary Care Provider Unava ilable Reason for Visit * Reason Comments E-prescribe Rx Request Encounter Details Date Type Department Care Team Description 09/15/2019 Refill Pulmonology - [place] 175 [facility] [address] [place] [address] Jayshree Gibbs MD [address] [place] [phone] E-prescribe Rx Request Social History Tobacco Use [...] encounter Miscellaneous Notes * Telephone Encounter - Etsefany Baugh - 09/15/2019 1:33 PM EDT Patient would like script to be: E-PRESCRIBED/FAXED TO PHARMACY WHEN WAS THE PATIENT'S LAST APPOINTMENT IN ADULT MEDICINE? 07/21/2019 WHEN WAS THE LAST TIME THE PATIENT SAW THEIR PCP? N/A Does patient have an upcoming appointment? Yes 01/19/2020 (THE MEDICATION REQUESTED IS ON THE MED [...] / Plan[place] / Product Type: MEDICARE [id number] documented in this encounter Plan of Treatment Not on file documented as of this encounter Visit Diagnoses Not on filedocumented in this encounter Care Teams Compliance Representative Relationship Specialty Start Date End Date Sanju Disla MD PCP - General 05/07/1997 documented as of this encounter
--- OUTSIDE RECORDS SUMMARY | 2025-02-28 12:04 | XMS_ITS | Encounter Summary ---
Author Organization [facility] Address [address] [place] [address] Care Team Providers Care Classification Clerk Name Role Phone Sanju Disla MD Primary Care Provider Unava ilable Reason for Visit * Reason Comments E-prescribe Rx Request Encounter Details Date Type Department Care Team Description 08/18/2019 Refill Pulmonology - [place] 175 [facility] [address] [place] [address] Jayshree Gibbs MD [address] [place] [phone] E-prescribe Rx Request Social History Tobacco Use [...] encounter Miscellaneous Notes * Telephone Encounter - Balbina Damon - 08/18/2019 11:01 AM EST Patient would like script to be: E-PRESCRIBED/FAXED TO PHARMACY WHEN WAS THE PATIENT'S LAST APPOINTMENT WITH THE PRESCRIBING PROVIDER? 07.21.2019 Does patient have an upcoming appointment? Yes 01.19.2020 (THE MEDICATION REQUESTED IS ON THE MED LIST ABOVE) All of the medications requested were on the CURRENT MEDS list Did you check the Pharmacy information above?: YES Patient wants: 90 -day supply Is this a mail order prescription request ? NO Patients current insurance carrier is: Payor: MEDICARE-[employer] / Plan: MEDICARE-[employer] / Product Type: MEDICARE [id number] documented in this encounter Plan of Treatment Not on file documented as of this encounter Visit Diagnoses Not on filedocumented in this encounter Care Teams Classification Clerk Relationship Specialty Start Date End Date Sanju Disla MD PCP - General 05/07/1997 documented as of this encounter
--- OUTSIDE RECORDS SUMMARY | 2025-02-28 12:04 | XMS_ITS | Encounter Summary ---
Author Organization [facility] Address [address] [place] [address] Care Team Providers Care County Attorney Name Role Phone Sanju Disla MD Primary Care Provider Unava ilable Encounter Details Date Type Department Care Team Description 10/06/2018 Telephone Pulmonology - [place] 175 [facility] [address] [place] [address] Edy Bethea MD Social History Tobacco Use Types Packs/Day [...] encounter Miscellaneous Notes * Telephone Encounter - Vanessa Levy M.A. - 10/06/2018 10:06 AM EDT Received notice from [employer] that a temporary 30 day supply of ProAir HFA; that it is not covered and/or not in the formulary. documented in this encounter Plan of Treatment Not on file documented as of this encounter Visit Diagnoses Not on filedocumented in this encounter Care Teams County Attorney Relationship Specialty Start Date End Date Sanju Disla MD PCP - General 05/07/1997 documented as of this encounter
--- OUTSIDE RECORDS SUMMARY | 2025-02-28 12:04 | XMS_ITS | Encounter Summary ---
Author Organization [facility] Address [address] [place] [address] Care Team Providers Care Knifeman Name Role Phone Sanju Disla MD Primary Care Provider Kirk mendez Encounter Details Date Type Department Care Team Description 01/25/2020 Telephone Pulmonology - [place] 175 [facility] [address] [place] [address] Jayshree Gibbs MD [address] [place] [address] Social History Tobacco Use Types [...] on filedocumented in this encounter Care Teams Knifeman Relationship Specialty Start Date End Date Sanju Disla MD PCP - General 05/07/1997 documented as of this encounter
--- OUTSIDE RECORDS SUMMARY | 2025-02-28 12:04 | XMS_ITS | Encounter Summary ---
Author Organization [facility] Address [address] [place] [address] Care Team Providers Care Incident Analyst Name Role Phone Sanju Disla MD Primary Care Provider Unava ilable Reason for Visit * Reason Comments E-prescribe Rx Request Encounter Details Date Type Department Care Team Description 12/23/2020 Refill Pulmonology - [place] 175 [facility] [address] [place] [phone] Jayshree Gibbs MD [address] [place] [phone] E-prescribe Rx Request Social History Tobacco Use [...] encounter Miscellaneous Notes * Telephone Encounter - Cassie Beteha - 12/24/2020 10:11 AM EDT Pls fill * Telephone Encounter - Cassie Bethea - 12/24/2020 10:11 AM EDT Pls advise * Telephone Encounter - Alexandra Palacios - 12/24/2020 9:23 AM EDT Volodymyr 11/18/20 Nov no appt booked documented in this encounter Plan of Treatment Not on file documented as of this encounter Visit Diagnoses Not on filedocumented in this encounter Care Teams Incident Analyst Relationship Specialty Start Date End Date Sanju Disla MD PCP - General 05/07/1997 documented as of this encounter
--- OUTSIDE RECORDS SUMMARY | 2025-02-28 12:04 | XMS_ITS | Encounter Summary ---
Author Organization [facility] Address [address] [place] [address] Care Team Providers Care Seam Stayer Name Role Phone Sanju Disla MD Primary Care Provider Unava ilable Reason for Visit * Reason Comments E-prescribe Rx Request Encounter Details Date Type Department Care Team Description 09/30/2022 Refill Pulmonology - [place] 175 [facility] [address] [place] [address] Jayshree Gibbs MD [address] [place] [phone] E-prescribe Rx Request Social History Tobacco Use [...] suspected to have Coronavirus/COVID-19? No / Unsure 08/31/2022 1:41 PM EST documented as of this encounter Miscellaneous Notes * Telephone Encounter - Josias Rayo CMA - 10/01/2022 11:55 AM EDT TIFFANIE 08/31/22 NOV 12/30/22 * Telephone Encounter - Ibeth Maldonado - 10/01/2022 11:04 AM EDT Patient would like script to be: E-PRESCRIBED/FAXED TO PHARMACY WHEN WAS THE PATIENT'S LAST APPOINTMENT IN ADULT MEDICINE? 08/2722 WHEN WAS THE LAST TIME THE PATIENT SAW THEIR PCP? Same as above Does patient have an upcoming appointment? Yes 12/30/22 (THE MEDICATION REQUESTED IS ON THE MED LIST ABOVE) All of the medications requested were on the CURRENT MEDS list Did you check the Pharmacy information above?: YES Patient wants: 90 -day supply Is this a mail order prescription request ? YES If the refill is from a FAXED refill request what is the RX # listed on the fax? N/A Patients current insurance carrier is: [place] / [place] / Product Type: MEDICARE [id number] documented in this encounter Plan of Treatment Not on file documented as of this encounter Visit Diagnoses Not on filedocumented in this encounter Care Teams Seam Stayer Relationship Specialty Start Date End Date Sanju Disla MD PCP - General 05/07/1997 documented as of this encounter
--- OUTSIDE RECORDS SUMMARY | 2025-02-28 12:04 | XMS_ITS | Encounter Summary ---
Author Organization [facility] Address [address] [place] [address] Care Team Providers Care Web Ui Software Engineer Name Role Phone Sanju Disla MD Primary Care Provider Unava ilable Reason for Visit * Reason Comments E-prescribe Rx Request Encounter Details Date Type Department Care Team Description 03/02/2020 Refill Pulmonology - [place] 175 [facility] [address] [place] [address] Jayshree Gibbs MD [address] [place] [phone] E-prescribe Rx Request Social History Tobacco Use [...] encounter Miscellaneous Notes * Telephone Encounter - Estefany Baugh - 03/04/2020 9:07 AM EDT Patient would like script to be: E-PRESCRIBED/FAXED TO PHARMACY WHEN WAS THE PATIENT'S LAST APPOINTMENT IN ADULT MEDICINE? 02/01/2020 WHEN WAS THE LAST TIME THE PATIENT SAW THEIR PCP? N/A Does patient have an upcoming appointment? Yes 06/03/2020 (THE MEDICATION REQUESTED IS ON THE MED [...] / [place] / Product Type: MEDICARE [id number] documented in this encounter Plan of Treatment Not on file documented as of this encounter Visit Diagnoses Diagnosis Severe chronic obstructive pulmonary disease (HCC) Chronic airway obstruction, not elsewhere classified documented in this encounter Care Teams Web Ui Software Engineer Relationship Specialty Start Date End Date Sanju Disla MD PCP - General 05/07/1997 documented as of this encounter
--- OUTSIDE RECORDS SUMMARY | 2025-02-28 12:04 | XMS_ITS | Encounter Summary ---
Author Organization [facility] Address [address] [place] [address] Care Team Providers Care Regional Hr Manager Name Role Phone Sanju Disla MD Primary Care Provider Unava ilable Reason for Visit * Reason Comments E-prescribe Rx Request Encounter Details Date Type Department Care Team Description 08/24/2020 Refill Pulmonology - [place] 175 [facility] [address] [place] [phone] Jayshree Gibbs MD [address] [place] [phone] E-prescribe Rx Request Social History Tobacco Use [...] Miscellaneous Notes * Telephone Encounter - Balbina Carrera - 08/26/2020 11:11 AM EST [id number] 30 day documented in this encounter Plan of Treatment Not on file documented as of this encounter Visit Diagnoses Diagnosis Severe chronic obstructive pulmonary disease (HCC) Chronic airway obstruction, not elsewhere classified documented in this encounter Care Teams Regional Hr Manager Relationship Specialty Start Date End Date Sanju Disla MD PCP - General 05/07/1997 documented as of this encounter
--- OUTSIDE RECORDS SUMMARY | 2025-02-28 12:04 | XMS_ITS | Encounter Summary ---
Author Organization [facility] Address [address] [place] [address] Care Team Providers Care Blueprinting And Photocopy Supervisor Name Role Phone Sanju Disla MD Primary Care Provider Kirk mendez Encounter Details Date Type Department Care Team Description 09/18/2023 Learning Support Aide Report Medical Records [address] [place] [address] [facility] [address] [place] [address] Social History Tobacco Use Types Packs/Day Years [...] on filedocumented in this encounter Care Teams Blueprinting And Photocopy Supervisor Relationship Specialty Start Date End Date Sanju Disla MD PCP - General 05/07/1997 documented as of this encounter
--- OUTSIDE RECORDS SUMMARY | 2025-02-28 12:04 | XMS_ITS | Encounter Summary ---
Author Organization [facility] Address [address] [place] [address] Care Team Providers Care Supervisor Coremaker Name Role Phone Sanju Disla MD Primary Care Provider Unava ilable Reason for Visit * Reason Comments E-prescribe Rx Request Encounter Details Date Type Department Care Team Description 01/05/2020 Refill Pulmonology - [place] 175 [facility] [address] [place] [phone] Jayshree Gibbs MD [address] [place] [phone] E-prescribe Rx Request Social History Tobacco Use [...] encounter Miscellaneous Notes * Telephone Encounter - Jordana Ferrera - 01/08/2020 4:35 PM EDT TIFFANIE 12/15/2019 NOV 01/19/2020 30 day supply. documented in this encounter Plan of Treatment Not on file documented as of this encounter Visit Diagnoses Not on filedocumented in this encounter Care Teams Supervisor Coremaker Relationship Specialty Start Date End Date Sanju Disla MD PCP - General 05/07/1997 documented as of this encounter
--- OUTSIDE RECORDS SUMMARY | 2025-02-28 12:04 | XMS_ITS | Encounter Summary ---
Author Organization [facility] Address [address] [place] [address] Care Team Providers Care Pet Stylist Name Role Phone Sanju Disla MD Primary Care Provider Unava ilable Reason for Visit * Reason Comments E-prescribe Rx Request Encounter Details Date Type Department Care Team Description 06/20/2020 Refill Pulmonology - [place] 175 [facility] [address] [place] [phone] Jayshree Gibbs MD [address] [place] [phone] E-prescribe Rx Request Social History Tobacco Use [...] AM EST documented as of this encounter Miscellaneous Notes * Telephone Encounter - Estefany Baugh - 06/26/2020 8:50 AM EST Patient would like script to be: E-PRESCRIBED/FAXED TO PHARMACY WHEN WAS THE PATIENT'S LAST APPOINTMENT IN ADULT MEDICINE? N/A WHEN WAS THE LAST TIME THE PATIENT SAW THEIR PCP? N/A Does patient have an upcoming appointment? Yes 11/18/2020 (THE MEDICATION REQUESTED IS ON THE MED [...] / [place] / Product Type: MEDICARE [id number] documented in this encounter Plan of Treatment Not on file documented as of this encounter Visit Diagnoses Diagnosis Severe chronic obstructive pulmonary disease (HCC) Chronic airway obstruction, not elsewhere classified documented in this encounter Care Teams Pet Stylist Relationship Specialty Start Date End Date Sanju Disla MD PCP - General 05/07/1997 documented as of this encounter
--- OUTSIDE RECORDS SUMMARY | 2025-02-28 12:04 | XMS_ITS | Encounter Summary ---
Author Organization [facility] Address [address] [place] [address] Care Team Providers Care Poker Dealer Name Role Phone Sanju Disla MD Primary Care Provider Unava ilable Reason for Visit * Reason Comments E-prescribe Rx Request Encounter Details Date Type Department Care Team Description 12/08/2020 Refill Pulmonology - [place] 175 [facility] [address] [place] [phone] Jayshree Gibbs MD [address] [place] [phone] E-prescribe Rx Request Social History Tobacco Use [...] encounter Miscellaneous Notes * Telephone Encounter - aDna Schneider - 12/11/2020 3:05 PM EDT TIFFANIE 11/18/2020 90 day supply. documented in this encounter Plan of Treatment Not on file documented as of this encounter Visit Diagnoses Diagnosis Severe chronic obstructive pulmonary disease (HCC) Chronic airway obstruction, not elsewhere classified documented in this encounter Care Teams Poker Dealer Relationship Specialty Start Date End Date Sanju Disla MD PCP - General 05/07/1997 documented as of this encounter
--- OUTSIDE RECORDS SUMMARY | 2025-02-28 12:04 | XMS_ITS | Encounter Summary ---
Author Organization [facility] Address [address] [place] [address] Care Team Providers Care Salsa Dance Instructor Name Role Phone Sanju Disla MD Primary Care Provider Unava ilable Reason for Visit * Reason Comments E-prescribe Rx Request Encounter Details Date Type Department Care Team Description 10/08/2022 Refill Pulmonology - [place] [address] [facility] [address] [place] [address] Jayshree Gibbs MD [address] [place] [phone] E-prescribe Rx Request Social History Tobacco Use [...] encounter Miscellaneous Notes * Telephone Encounter - Catherine Jones - 10/19/2022 3:29 PM EDT pended * Telephone Encounter - Ping aVldez - 10/16/2022 8:45 AM EDT Pharmacy fax received, requesting Ventolin brand name only instead of Albuterol Sulfate. [employer] only covers Ventolin. Please advice. * Telephone Encounter - Josias Rayo CMA - 10/12/2022 11:48 AM EDT TIFFANIE 08/31/22 NOV 12/30/22 * Telephone Encounter - Ibeth Maldonado - 10/09/2022 8:39 AM EDT Patient would like script to be: E-PRESCRIBED/FAXED TO PHARMACY WHEN WAS THE PATIENT'S LAST APPOINTMENT IN ADULT MEDICINE? 08/31/22 WHEN WAS THE LAST TIME THE PATIENT [...] / [place] / Product Type: MEDICARE [id number] documented in this encounter Plan of Treatment Not on file documented as of this encounter Visit Diagnoses Diagnosis Chronic obstructive pulmonary disease, unspecified COPD type (HCC) documented in this encounter Care Teams Salsa Dance Instructor Relationship Specialty Start Date End Date Sanju Disla MD PCP - General 05/07/1997 documented as of this encounter
--- OUTSIDE RECORDS SUMMARY | 2025-02-28 12:04 | XMS_ITS | Encounter Summary ---
Author Organization [facility] Address [address] [place] [address] Care Team Providers Care Activated Sludge Operator Name Role Phone Sanju Disla MD Primary Care Provider Kirk mendez Encounter Details Date Type Department Care Team Description 06/29/2023 Transfer Records Medical Records [address] [place] [address] Sanju Disla MD Social History Tobacco Use Types Packs/Day [...] on filedocumented in this encounter Care Teams Activated Sludge Operator Relationship Specialty Start Date End Date Sanju Disla MD PCP - General 05/07/1997 documented as of this encounter
== END 2025-02-28 11:10 | disposition home or self-care (01) ==
LOC: HO.US 11:09
PROVIDERS: PCP Internal Medicine; Visit Provider Urology
DX: N20.0 Calculus of kidney (principal)
CPT/HCPCS: 76775

== ENCOUNTER → 2025-02-28 11:11 | Outpatient (BNV) | payer MEDICARE, MEDICAID, SELFPAY | PROVIDERS: PCP Internal Medicine; Visit Provider Radiology Diagnostic Radiology | DX: N20.0 Calculus of kidney (principal) | CPT/HCPCS: 76775 ==

== ENCOUNTER 2025-03-03 09:11 | Outpatient (AMB) | payer MEDICARE, MEDICAID, SELFPAY ==
--- OUTSIDE RECORDS SUMMARY | 2025-03-03 09:13 | XMS_ITS | Encounter Summary ---
Author Organization [facility] Address [address] [place] [address] Care Team Providers Care Nitro Man Name Role Phone Sanju Disla MD Primary Care Provider Unava ilable Reason for Visit * Reason Onset Date Comments Faxed Refill 05/09/2018 Encounter Details Date Type Department Care Team Description 05/09/2018 Refill Pulmonology - [address] [place] [phone] Roxana Perez NP Faxed Refill Social History [...] / [place] / Product Type: MEDICARE [id number] documented in this encounter Plan of Treatment Not on file documented as of this encounter Visit Diagnoses Not on filedocumented in this encounter Care Teams Nitro Man Relationship Specialty Start Date End Date Sanju Disla MD PCP - General 05/07/1997 documented as of this encounter
--- OUTSIDE RECORDS SUMMARY | 2025-03-03 09:13 | XMS_ITS | Encounter Summary ---
Author Organization [facility] Address [address] [place] [address] Care Team Providers Care Third Miller Name Role Phone Sanju Disla MD Primary Care Provider Unava ilable Reason for Visit * Reason Comments E-prescribe Rx Request Encounter Details Date Type Department Care Team Description 05/08/2022 Refill Pulmonology - [place] [address] [facility] [address] [place] [address] Jayshree Gibbs MD [address] [place] [phone] E-prescribe Rx Request Social History Tobacco Use [...] * Telephone Encounter - Ping Valdez - 05/11/2022 9:56 AM EST Patient would like script to [...] insurance carrier is: [place] / Plan: MEDICARE-[employer] / Product Type: MEDICARE [id number] documented in this encounter Plan of Treatment Not on file documented as of this encounter Visit Diagnoses Not on filedocumented in this encounter Care Teams Third Miller Relationship Specialty Start Date End Date Sanju Disla MD PCP - General 05/07/1997 documented as of this encounter
--- OUTSIDE RECORDS SUMMARY | 2025-03-03 09:13 | XMS_ITS | Encounter Summary ---
Author Organization [facility] Address [address] [place] [address] Care Team Providers Care Adjuster And Inspector Name Role Phone Sanju Disla MD Primary Care Provider Unava ilable Reason for Visit * Reason Onset Date Comments Letter 06/02/2021 Jury Duty Encounter Details Date Type Department Care Team Description 06/02/2021 Telephone Pulmonology - [place] [address] [facility] [address] [place] [address] Jayshree Gibbs MD [address] [place] [phone] Letter (Jury Duty) Social History Tobacco Use [...] Please fax letter excusing patient to: FAX [phone]. Please reference these in the letter: Rosalina # [id number] Pin # [id number] documented in this encounter Plan of Treatment Not on file documented as of this encounter Visit Diagnoses Not on filedocumented in this encounter Care Teams Adjuster And Inspector Relationship Specialty Start Date End Date Sanju Disla MD PCP - General 05/07/1997 documented as of this encounter
--- OUTSIDE RECORDS SUMMARY | 2025-03-03 09:13 | XMS_ITS | Encounter Summary ---
Author Organization [facility] Address [address] [place] [address] Care Team Providers Care Csw Name Role Phone Sanju Disla MD Primary Care Provider Unava ilable Reason for Visit * Reason Comments E-prescribe Rx Request Encounter Details Date Type Department Care Team Description 03/02/2022 Refill Pulmonology - [place] [address] [facility] [address] [place] [address] Jayshree Gibbs MD [address] [place] [phone] E-prescribe Rx Request Social History Tobacco Use [...] encounter Miscellaneous Notes * Telephone Encounter - Dailla Valeria Ahktar - 03/03/2022 8:41 AM EDT Patient would like script to [...] / [place] / Product Type: MEDICARE [id number] documented in this encounter Plan of Treatment Not on file documented as of this encounter Visit Diagnoses Not on filedocumented in this encounter Care Teams Csw Relationship Specialty Start Date End Date Sanju Disla MD PCP - General 05/07/1997 documented as of this encounter
--- OUTSIDE RECORDS SUMMARY | 2025-03-03 09:13 | XMS_ITS | Encounter Summary ---
Author Organization [facility] Address [address] [place] [address] Care Team Providers Care Primer Press Operator Name Role Phone Sanju Disla MD Primary Care Provider Unava ilable Reason for Visit * Reason Comments E-prescribe Rx Request Encounter Details Date Type Department Care Team Description 2018 Refill Pulmonology - [address] [place] [phone] Roxana Perez, JAYRO E-prescribe Rx Request Social [...] / [place] / Product Type: MEDICARE [id number] documented in this encounter Plan of Treatment Not on file documented as of this encounter Visit Diagnoses Not on filedocumented in this encounter Care Teams Primer Press Operator Relationship Specialty Start Date End Date Sanju Disla MD PCP - General 05/07/1997 documented as of this encounter
--- OUTSIDE RECORDS SUMMARY | 2025-03-03 09:13 | XMS_ITS | Encounter Summary ---
Author Organization [facility] Address [address] [place] [address] Care Team Providers Care Plastics Fitter Name Role Phone Sanju Disla MD Primary Care Provider Unava ilable Reason for Visit * Reason Comments E-prescribe Rx Request Encounter Details Date Type Department Care Team Description 11/20/2021 Refill Pulmonology - [place] [address] [facility] [address] [place] [address] Jayshree Gibbs MD [address] [place] [phone] E-prescribe Rx Request Social History Tobacco Use [...] * Telephone Encounter - Ping Valdez - 11/20/2021 4:50 PM EDT Patient would like script to [...] insurance carrier is: [place] / Plan: MEDICARE-[employer] / Product Type: MEDICARE [id number] documented in this encounter Plan of Treatment Not on file documented as of this encounter Visit Diagnoses Diagnosis Severe chronic obstructive pulmonary disease (HCC) Chronic airway obstruction, not elsewhere classified documented in this encounter Care Teams Plastics Fitter Relationship Specialty Start Date End Date Sanju Disla MD PCP - General 05/07/1997 documented as of this encounter
--- OUTSIDE RECORDS SUMMARY | 2025-03-03 09:13 | XMS_ITS | Encounter Summary ---
Author Organization [facility] Address [address] [place] [address] Care Team Providers Care Cook Manager Name Role Phone Sanju Disla MD Primary Care Provider Unava ilable Reason for Visit * Reason Comments E-prescribe Rx Request Encounter Details Date Type Department Care Team Description 05/20/2019 Refill Pulmonology - [place] [address] [facility] [address] [place] [address] Jayshree Gibbs MD [address] [place] [address] E-prescribe Rx Request Social History [...] NO Patients current insurance carrier is: Payor: MEDICARE-[employer] / Plan: MEDICARE-[employer]ist[employer] / Product Type: MEDICARE [id number] documented in this encounter Plan of Treatment Not on file documented as of this encounter Visit Diagnoses Not on filedocumented in this encounter Care Teams Cook Manager Relationship Specialty Start Date End Date Sanju Disla MD PCP - General 05/07/1997 documented as of this encounter
--- OUTSIDE RECORDS SUMMARY | 2025-03-03 09:13 | XMS_ITS | Encounter Summary ---
Author Organization [facility] Address [address] [place] [address] Care Team Providers Care Unindentured Apprentice Name Role Phone Sajnu Disla MD Primary Care Provider Unava ilable Reason for Visit * Reason Onset Date Comments DME Request 02/04/2022 Encounter Details Date Type Department Care Team Description 02/04/2022 Telephone Pulmonology - [place] [address] [facility] [address] [place] [address] Jayshree Gibbs MD [address] [place] [address] DME Request Social History Tobacco Use Types Packs/Day [...] * Telephone Encounter - Estefany Baugh - 02/04/2022 10:36 AM EDT [place] recived form but it was not signed, please refax signed form to [phone]. documented in this encounter Plan of Treatment Not on file documented as of this encounter Visit Diagnoses Not on filedocumented in this encounter Care Teams Unindentured Apprentice Relationship Specialty Start Date End Date Sanju Disla MD PCP - General 05/07/1997 documented as of this encounter
--- OUTSIDE RECORDS SUMMARY | 2025-03-03 09:13 | XMS_ITS | Encounter Summary ---
Author Organization [facility] Address [address] [place] [address] Care Team Providers Care Powder Cutting Operator Name Role Phone Sanju Disla MD Primary Care Provider Unava ilable Encounter Details Date Type Department Care Team Description 02/28/2018 Refill Pulmonology - [place] [address] [facility] [address] [place] [address] Jayshree Gibbs MD [address] [place] [address] Social History Tobacco Use Types [...] on filedocumented in this encounter Care Teams Powder Cutting Operator Relationship Specialty Start Date End Date Sanju Disla MD PCP - General 05/07/1997 documented as of this encounter
--- OUTSIDE RECORDS SUMMARY | 2025-03-03 09:13 | XMS_ITS | Encounter Summary ---
Author Organization [facility] Address [address] [place] [address] Care Team Providers Care Zipper Machine Operator Name Role Phone Sanju Disla MD Primary Care Provider Kirk mendez Encounter Details Date Type Department Care Team Description 06/05/2022 Supervisor Pastry Report Medical Records [address] [place] [address] [facility] [address] [place] [address] Social History Tobacco Use Types Packs/Day Years [...] on filedocumented in this encounter Care Teams Zipper Machine Operator Relationship Specialty Start Date End Date Sanju Disla MD PCP - General 05/07/1997 documented as of this encounter
--- OUTSIDE RECORDS SUMMARY | 2025-03-03 09:13 | XMS_ITS | Clinical Summary ---
Author Organization [facility] Address [address] [place] [address] Phone Care Team Providers Care Cardiac Rehab Nurse Name Role Phone Sanju Disla MD Primary [...] breath) 02/16/2025 Coronary artery disease invo lving [place] coronary artery of [place] heart without angina pectoris 07/11/2024 Assessment & [...] Acute on chronic hypoxic res piratory failure ([facility] V24, CMS/[facility] V28) 05/15/2024 COPD exacerbation ([facility] V24, [facility] V28) 04/2024 Inclusion cyst 05/08/2019 Lymphadenopathy [...] 08/10/2017 Chronic obstructive pulmonar y disease (COPD) ([facility] V24, [facility] V28) 02/11/2017 Resolved Problems Problem Noted Date Diagnosed Date Resolved Date Chest pain 07/03/2024 07/11/2024 Encounters Date Type Department Care Team Description 02/15/2025 9:32 PM EDT - 02/16/2025 2:46 PM EDT Hospital Encounter [facility] Emergency [address] [place] [address] Tomer Holland MD Ishtiaq, Rizwan, MD Bell, Alistair A, MD COPD exacerbation ([facility] V24, [facility] V28) (Primary Dx); Acute on chronic respiratory failure with hypoxia ([facility] V24, CMS/HCC V28) Discharge Disposition: Home or Self Care 12/25/2024 Telephone [facility] [address] [place] [address] Hayes Han MD 12/11/2024 11:56 AM EDT - 12/11/2024 3:01 PM EDT Emergency [facility] Emergency [address] [place] [address] Philip Collins MD COPD exacerbation ([facility] V24, [facility] V28) (Primary Dx) Discharge Disposition: Home or Self Care from Last 3 Months Immunizations Name Administration Dates Next Due Influenza Quadravalent, MDCK , 0.5ml, preservative free (Flucelvax) 6mo and older 04/28/2022 Surgical History Surgery Date Site/Laterality Comments KNEE SURGERY PROCEDURE: HISTORICAL KNEE SURGERY DENTAL SURGERY PROCEDURE: NM UNLISTED PROCEDURE DENTOALVEOLAR STRUCTURES Medical History Medical History Date Comments Arthritis DX:Arthritis Cholelithiasis 08/10/2017 DX:Cholelithiasi s Diverticulosis 08/10/2017 DX:Diverticulosi s Hyperlipidemia 08/10/2017 DX:Hyperlipidemi a Tobacco use 02/11/2017 DX:Tobacco use Chronic obstructive pulmonar y disease (COPD) ([facility] [place], [facility] [place] 02/11/2017 DX:Chronic obstructi ve pulmonary disease (COPD) ([facility]) Supplemental oxygen dependent 08/10/2017 DX :Supplemental [...] 2:45 PM EDT Office Visit Pulmonolgy - [place] [address] [place] [address] Jayshree Gibbs MD [address] [place] [phone] Health Maintenance Due Date Last Done Comments [...] ECG 12-LEAD STAT 02/15/2025 10:19 PM EDT NM CRITICAL CARE 30-74 MINUTES Routine 02/15/2025 9:22 [...] [facility] BLOOD ORDERABLES Final Res ult [facility] [address] [place] [address], * (ABNORMAL) Basic metabolic panel (02/16/2025 5:06 [...] LAB CHEMISTRY METHOD 02/16/2025 6:[address] [facility] Blood Venous blood specimen / Unknown Venipuncture / Unknown 02/16/2025 5:06 AM EDT 02/16/2025 5:31 AM EDT us Rustam [facility] BLOOD ORDERABLES Final Res ult [facility] [address] [place] [address], * Respiratory virus panel molecular study (02/16/2025 3:52 AM EDT) Adenovirus Detection by PCR Not Detected Not Detected LAB MICROBIOLOGY METHOD 02/16/2025 5:[address] [facility] Influenza A PCR Not Detected Not Detected LAB MICROBIOLOGY METHOD 02/16/2025 5:[address] [facility] Influenza B PCR Not Detected Not Detected LAB MICROBIOLOGY METHOD 02/16/2025 5:[address] [facility] Coronavirus 229E Not Detected Not Detected LAB MICROBIOLOGY METHOD 02/16/2025 5:[address] [facility] Coronavirus HKU1 Not Detected Not Detected LAB MICROBIOLOGY METHOD 02/16/2025 5:[address] [facility] Coronavirus OC43 Not Detected Not Detected LAB MICROBIOLOGY METHOD 02/16/2025 5:[address] [facility] Coronavirus NL63 Not Detected Not Detected LAB MICROBIOLOGY METHOD 02/16/2025 5:[address] [facility] Parainfluenza Virus 1 Not Detected Not Detected LAB MICROBIOLOGY METHOD 02/16/2025 5:[address] [facility] Parainfluenza Virus 2 Not Detected Not Detected LAB MICROBIOLOGY METHOD 02/16/2025 5:[address] [facility] Parainfluenza Virus 3 Not Detected Not Detected LAB MICROBIOLOGY METHOD 02/16/2025 5:[address] [facility] Parainfluenza Virus 4 Not Detected Not Detected LAB MICROBIOLOGY METHOD 02/16/2025 5:[address] [facility] RSV PCR Not Detected Not Detected LAB MICROBIOLOGY METHOD 02/16/2025 5:[address] [facility] Human Metapneumovirus A and B Not Detected Not Detected LAB MICROBIOLOGY METHOD 02/16/2025 5:[address] [facility] Rhinovirus/Entero virus Not Detected Not Detected LAB MICROBIOLOGY METHOD 02/16/2025 5:[address] [facility] Bordetella pertussis Not Detected Not Detected LAB MICROBIOLOGY METHOD [facility] Bord[facility]ella parapertussis Not Detected Not Detected LAB MICROBIOLOGY METHOD [facility] Mycoplasma pneumo by PCR Not Detected Not Detected LAB MICROBIOLOGY METHOD 02/16/2025 5:[address] [facility] Chlamydia pneumoniae Not Detected Not Detected LAB MICROBIOLOGY METHOD 02/16/2025 5:08 AM [facility] SARS COV-2 Not Detected Not Detected LAB MICROBIOLOGY METHOD 02/16/2025 5:08 AM [facility] Swab Nasopharyngeal structure / Unknown Non-blood Collection / Unknown 02/16/2025 3:52 AM EDT 02/16/2025 3:52 AM EDT [facility] - 02/16/2025 5:08 AM EDT Testing was performed using the [employer] Respiratory Pathogen PCR Assay. All results must [...] ORD ERABLES Final Result Performing Organization Address City/[facility]/ZIP Co de Phone Number [facility] [address] [place] [address], [place] [phone] * ECG-Annotated (02/16/2025) Only the most recent of2 resultswithin the time period is included. Provider Onbase MD ECG ORDERABLES Final Result * B-type natriuretic peptide (02/15/2025 10:27 PM EDT) Only the most recent of2 resultswithin the time period is included. [facility] BNP 22 <=100 pcg/mL LAB CHEMISTRY METHOD 02/15/2025 11:[address] [facility] Blood Venous blood specimen / Unknown Venipuncture / Unknown 02/15/2025 10:27 PM EDT 02/15/2025 10:33 PM EDT Tomer Holland MD LAB BLOOD ORDERABLES Final R esult Performing Organization Address City/[facility]/ZIP Co de Phone Number [facility] [address] [place] [address], [place] [phone] * (ABNORMAL) Comprehensive metabolic panel (02/15/2025 10:27 PM EDT) Only the most recent of2 resultswithin the time period is included. [facility] Sodium 137 133 - 145 mmol/L LAB CHEMISTRY METHOD 02/15/2025 11:[address] [facility] Potassium 4.1 3.5 - 5.5 mmol/L LAB CHEMISTRY METHOD 02/15/2025 11:[address] [facility] Chloride 107 96 - 110 mmol/L LAB CHEMISTRY METHOD 02/15/2025 11:[address] [facility] CO2 26 21 [...] 10.5 mg/dL LAB CHEMISTRY METHOD 02/15/2025 11:11 [facility] AST (SGOT) 20 10 - 42 unit/L LAB CHEMISTRY METHOD 02/15/2025 11:11 [facility] ALT (SGPT) 27 10 - 60 [...] LAB CHEMISTRY METHOD 02/15/2025 11:[address] [facility] Blood Venous blood specimen / Unknown Venipuncture / Unknown 02/15/2025 10:27 PM EDT 02/15/2025 10:33 PM EDT us Tomer Holland MD LAB BLOOD ORDERABLES Final R esult [facility] [address] [place] [address], [place] [phone] * XR Chest 1 View (02/15/2025 10:20 PM EDT) Anatomical Region Laterality Modality Body Radiographic Isable ging 02/16/2025 8:47 AM EDT Impressions 02/16/2025 8:48 AM EDT No acute findings. -------- FINAL REPORT -------- Dictated By: Raphael Denton Dictated Date: 02/16/2025 08:47 ET Assigned Physician: Raphael Denton Reviewed and Electronically Signed By: Raphael Denton Signed Date: 02/16/2025 08:48 ET Workstation ID: [id number] Transcribed By: Self Edit Transcribed Date: 02/16/2025 [...] Signed Date: 02/16/2025 08:48 ET Workstation ID: [id number] Transcribed By: Self Edit Transcribed Date: 02/16/2025 [...] GEMUSE QTc 471 ms GEMUSE P Wave Arverne 48 degrees GEMUSE R Arverne 86 degrees GEMUSE T Arverne 53 degrees GEMUSE ECG Interpretation Normal sinus rhythm Right bundle branch block Abnormal ECG When compared with ECG of 11-DEC-2024 13:47, No significant change was found Confirmed by MD BETHANY, ELLIOTT ([id number]) on 02/16/2025 7:58:16 AM GEMUSE 02/15/2025 10:1 9 PM EDT 02/16/2025 7:58 AM EDT us Tomer Holland MD ECG ORDERABLES Final Result GEMUSE * NM CRITICAL CARE 30-74 MINUTES (02/15/2025 9:22 PM [...] Signed Date: 12/11/2024 13:31 ET Workstation ID: [id number] Transcribed By: Self Edit Transcribed Date: 12/11/2024 [...] Signed Date: 12/11/2024 13:31 ET Workstation ID: [id number] Transcribed By: Self Edit Transcribed Date: 12/11/2024 13:29 ET us Philip Collins MD IMG XR PROCEDURES Final Resu lt * Magnesium (12/11/2024 12:13 PM EDT) [facility] Magnesium 2.0 1.9 - 2.6 mg/dL LAB CHEMISTRY METHOD 12/11/2024 1:[address] [facility] Blood Venous blood specimen / Unknown Venipuncture / Unknown 12/11/2024 12:13 PM EDT 12/11/2024 12:45 PM EDT us Philip Collins MD LAB BLOOD ORDERABLES Final R esult Performing Organization Address City/[facility]/ZIP Co de Phone Number [facility] [address] [place] [address], [place] [phone] * Lipase (12/11/2024 12:13 PM EDT) [facility] Lipase 46 13 - 75 unit/L LAB CHEMISTRY METHOD 12/11/2024 1:[address] [facility] Blood Venous blood specimen / Unknown Venipuncture / Unknown 12/11/2024 12:13 PM EDT 12/11/2024 12:45 PM EDT us Philip Collins MD LAB BLOOD ORDERABLES Final R esult [facility] [address] [place] [address], [place] [phone] * CT LUNG SCREENING LOW DOSE (06/29/2023 6:57 AM EST) Anatomical Region Laterality Modality Computed Tomogra phy 06/15/2023 1:42 PM EST Narrative 06/29/2023 6:57 AM EST [facility] Diagnostic Imaging Department [address] [place] [address] Patient: ANNA JACKSON Jennifer /Age/Sex: 1960 - 63 - M Unit#: [id number] [facility] Mnemonic/Ordering Site: [facility] Ordering Physician: SHARIF MARCUM MD CT Lung Screening Low Dose - 06/15/23 - 1351 Report Status:Signed Indication: Greater than 20 total pack-year smoking history, asymptomatic former smoker Technique: Low-dose CT scan of the chest obtained as a lung cancer screening study. Multiplanar reformatted images were obtained. Dose reduction technique: ASIR (Adaptive statistical iterative reconstruction) and/or AEC (automated exposure control) COMPARISON: [id number]. FINDINGS: Lack of intravenous contrast limits evaluation [...] Physician: JHONNY PATEL MD Electronically Signed by: JHONYN PATEL MD Dic Date/Time: 06/29/23645 Sign date/Time: 06/29/23656 Procedure Note Jhonny Patel MD - 08/10/2023 [facility] Diagnostic Imaging Department [address] [place] [address] Patient: ANNA JACKSON /Age/Sex: 1960 - 63 - M Unit#: [id number] Location/Status: [facility]/REG CLI Mnemonic/Ordering Site: [facility] Ordering Physician: SHARIF MARCUM MD CT Lung Screening Low Dose - 06/15/23 - 1351 Report Status:Signed Indication: Greater than 20 total pack-year smoking history,asymptomatic former smoker Technique: Low-dose CT scan of the chest obtained as a lung cancerscreening study. Multiplanar reformatted images were obtained. Dose reductiontechnique: ASIR (Adaptive statistical iterative reconstruction) and/or AEC(automated exposure control) COMPARISON: [id number]. FINDINGS: Lack of intravenous contrast limits evaluation [...] 06/29/23 0646 Sign date/Time: 06/29/23 0657 Sharif Marcum MD IM CT PROCEDURES Final Result from Last 3 Months or Most Recently Relevant to Health Maintenance Insurance [employer] MEDICARE ADVANTAGE [place]ICAID - [place] Advance Directives Documents on File Type Date Recorded Patient Economics Faculty Member Expl anation Advance Directives and Living Will [...] First Alternate Health Care Agent Care Teams Cardiac Rehab Nurse Relationship Specialty Start Date End Date Sanju Disla MD [address] [place] [address] Dr [address] [place] PCP - General 05/07/1997
--- OUTSIDE RECORDS SUMMARY | 2025-03-03 09:13 | XMS_ITS | Encounter Summary ---
Author Organization [facility] Address [address] [place] [address] Care Team Providers Care Assistant Laboratory Director Name Role Phone Sanju Disla MD Primary Care Provider Unava ilable Reason for Visit * Reason Comments E-prescribe Rx Request Encounter Details Date Type Department Care Team Description 06/06/2021 Refill Pulmonology - [place] [address] [facility] [address] [place] [phone] Jayshree Gibbs MD [address] [place] [phone] E-prescribe Rx Request Social History Tobacco Use [...] / Plan: [place] / Product Type: MEDICARE [id number] documented in this encounter Plan of Treatment Not on file documented as of this encounter Visit Diagnoses Not on filedocumented in this encounter Care Teams Assistant Laboratory Director Relationship Specialty Start Date End Date Sanju Disla MD PCP - General 05/07/1997 documented as of this encounter
--- OUTSIDE RECORDS SUMMARY | 2025-03-03 09:13 | XMS_ITS | Encounter Summary ---
Author Organization [facility] Address [address] [place] [address] Care Team Providers Care Manager Market Intelligence Name Role Phone Sanju Disla MD Primary Care Provider Unava ilable Encounter Details Date Type Department Care Team Description 09/01/2017 Release of Information Medical Records [address] [place] [id number] Abstract, Provider Social History Tobacco Use Types [...] on filedocumented in this encounter Care Teams Manager Market Intelligence Relationship Specialty Start Date End Date Sanju Disla MD PCP - General 05/07/1997 documented as of this encounter
--- OUTSIDE RECORDS SUMMARY | 2025-03-03 09:14 | XMS_ITS | Encounter Summary ---
Author Organization [facility] Address [address] [place] [address] Care Team Providers Care Optical Advisor Name Role Phone Sanju Disla MD Primary Care Provider Kirk mendez Encounter Details Date Type Department Care Team Description 01/30/2020 Social Media Project Manager Report Medical Records [address] [place] [address] Center, [facility] [address] [place] [address] Social History Tobacco Use Types Packs/Day Years [...] on filedocumented in this encounter Care Teams Optical Advisor Relationship Specialty Start Date End Date Sanju Disla MD PCP - General 05/07/1997 documented as of this encounter
--- OUTSIDE RECORDS SUMMARY | 2025-03-03 09:14 | XMS_ITS | Encounter Summary ---
Author Organization [facility] Address [address] [place] [address] Care Team Providers Care Dubbing Machine Operator Name Role Phone Sanju Disla MD Primary Care Provider Unava ilable Reason for Visit * Reason Onset Date Comments refill request 11/09/2023 Encounter Details Date Type Department Care Team Description 11/09/2023 Refill Pulmonology - [place] [address] [facility] [address] [place] [address] Jayshree Gibbs MD [address] [place] [phone] refill request Social History Tobacco Use Types [...] encounter Miscellaneous Notes * Telephone Encounter - Jessie Jj - 11/09/2023 1:26 PM EDT Nov 05/04/24 Volodymyr 10/28/23 documented in this encounter Plan of Treatment Not on file documented as of this encounter Visit Diagnoses Diagnosis Chronic obstructive pulmonary disease, unspecified COPD type (HCC) documented in this encounter Care Teams Dubbing Machine Operator Relationship Specialty Start Date End Date Sanju Disla MD PCP - General 05/07/1997 documented as of this encounter
--- OUTSIDE RECORDS SUMMARY | 2025-03-03 09:14 | XMS_ITS | Encounter Summary ---
Author Organization [facility] Address [address] [place] [address] Care Team Providers Care Input Output Clerk Name Role Phone Sanju Disla MD Primary Care Provider Unava ilable Reason for Visit * Reason Comments E-prescribe Rx Request Encounter Details Date Type Department Care Team Description 08/24/2020 Refill Pulmonology - [place] [address] [facility] [address] [place] [phone] Jayshree Gibbs MD [address] [place] [phone] E-prescribe Rx Request Social History Tobacco Use [...] classified documented in this encounter Care Teams Input Output Clerk Relationship Specialty Start Date End Date Sanju Disla MD PCP - General 05/07/1997 documented as of this encounter
--- OUTSIDE RECORDS SUMMARY | 2025-03-03 09:14 | XMS_ITS | Encounter Summary ---
Author Organization [facility] Address [address] [place] [address] Care Team Providers Care Layboy Operator Name Role Phone Sanju Disla MD Primary Care Provider Unava ilable Reason for Visit * Reason Comments E-prescribe Rx Request Encounter Details Date Type Department Care Team Description 09/15/2019 Refill Pulmonology - [place] [address] [facility] [address] [place] [address] Jayshree Gibbs MD [address] [place] [phone] E-prescribe Rx Request Social History Tobacco Use [...] * Telephone Encounter - Estefany Baugh - 09/15/2019 1:33 PM EDT Patient [...] / Plan[place] / Product Type: MEDICARE [id number] documented in this encounter Plan of Treatment Not on file documented as of this encounter Visit Diagnoses Not on filedocumented in this encounter Care Teams Layboy Operator Relationship Specialty Start Date End Date Sanju Disla MD PCP - General 05/07/1997 documented as of this encounter
--- OUTSIDE RECORDS SUMMARY | 2025-03-03 09:14 | XMS_ITS | Encounter Summary ---
Author Organization [facility] Address [address] [place] [address] Care Team Providers Care Paraplanner Name Role Phone Sanju Disla MD Primary Care Provider Unava ilable Reason for Visit * Reason Onset Date Comments refill request 10/30/2019 Encounter Details Date Type Department Care Team Description 10/30/2019 Telephone Pulmonology - [place] [address] [facility] [address] [place] [address] Jayshree Gibbs MD [address] [place] [address] refill request Social History Tobacco Use Types [...] Telephone Encounter - Jayshree Gibbs MD - 10/30/2019 11:51 AM EDT Spoke to pt- just got d/c. Had pneumonia. Covid-[address] Will need repeat chest CT in 2 mths. Stil has wheezing * Telephone Encounter - Megan Tim - 10/30/2019 9:51 AM EDT Patient would like to know if he can have another short supply of prednisone. States he was given this in the hospital for a dx of pneumonia and is feeling better but would like a few more days if possible. Please advise. documented in this encounter Plan of Treatment Not on file documented as of this encounter Visit Diagnoses Diagnosis Severe chronic obstructive pulmonary disease (HCC)- Primary Chronic airway obstruction, not elsewhere classified documented in this encounter Care Teams Paraplanner Relationship Specialty Start Date End Date Sanju Disla MD PCP - General 05/07/1997 documented as of this encounter
--- OUTSIDE RECORDS SUMMARY | 2025-03-03 09:14 | XMS_ITS | Encounter Summary ---
Author Organization [facility] Address [address] [place] [address] Care Team Providers Care Portable Irrigation Operator Name Role Phone Sanju Disla MD Primary Care Provider Unava ilable Reason for Visit * Reason Comments E-prescribe Rx Request Encounter Details Date Type Department Care Team Description 01/05/2020 Refill Pulmonology - [place] [address] [facility] [address] [place] [phone] Jayshree Gibbs MD [address] [place] [phone] E-prescribe Rx Request Social History Tobacco Use [...] on filedocumented in this encounter Care Teams Portable Irrigation Operator Relationship Specialty Start Date End Date Sanju Disla MD PCP - General 05/07/1997 documented as of this encounter
--- OUTSIDE RECORDS SUMMARY | 2025-03-03 09:14 | XMS_ITS | Encounter Summary ---
Author Organization [facility] Address [address] [place] [address] Care Team Providers Care Forensic Science Technician Name Role Phone Sanju Disla MD Primary Care Provider Unava ilable Reason for Visit * Reason Comments E-prescribe Rx Request Encounter Details Date Type Department Care Team Description 02/01/2021 Refill Pulmonology - [place] [address] [facility] [address] [place] [phone] Jayshree Gibbs MD [address] [place] [phone] E-prescribe Rx Request Social History Tobacco Use [...] Miscellaneous Notes * Telephone Encounter - Cassie Bethea - 02/04/2021 1:27 PM EDT Pls advise * Telephone Encounter - Estefany Baugh - 02/04/2021 1:17 PM EDT Patient would like script to be: E-PRESCRIBED/FAXED TO PHARMACY WHEN WAS THE PATIENT'S LAST APPOINTMENT IN ADULT MEDICINE? 11/18/2020 WHEN WAS THE LAST TIME THE PATIENT SAW THEIR PCP? N/A Does patient have an upcoming appointment? Yes 05/15/2021 (THE MEDICATION REQUESTED IS ON THE MED [...] insurance carrier is: [place] / Plan: MEDICARE-[employer] / Product Type: MEDICARE [id number] documented in this encounter Plan of Treatment Not on file documented as of this encounter Visit Diagnoses Not on filedocumented in this encounter Care Teams Forensic Science Technician Relationship Specialty Start Date End Date Sanju Disla MD PCP - General 05/07/1997 documented as of this encounter
--- OUTSIDE RECORDS SUMMARY | 2025-03-03 09:14 | XMS_ITS | Encounter Summary ---
Author Organization [facility] Address [address] [place] [address] Care Team Providers Care Oncology Social Work Name Role Phone Sanju Disla MD Primary Care Provider Kirk mendez Encounter Details Date Type Department Care Team Description 06/29/2023 Orders Only [facility] [employer] Lung Screening Program [place] [address] [facility] [address] [place] [phone] Estuardo Marcum MD [address] [facility] [address] [place] [address] History of tobacco use, presenting hazards to health; Encounter for screening for lung cancer Social History Tobacco Use Types Packs/Day Years [...] Procedure Name Priority Date/Time Associated Diagnosis Comments CT LOW DOSE LUNG SCREEN ANNUAL Routine 06/15/2023 History of tobacco use, presenting hazards to health Encounter for screening for lung cancer documented in this encounter Results * CT LOW DOSE LUNG SCREEN ANNUAL (06/15/2023) Estuardo Marcum MD CT SCANS documented in this encounter Visit Diagnoses Diagnosis History of tobacco use, presenting hazards to health Personal history of tobacco use, presenting hazards to health Encounter for screening for lung cancer documented in this encounter Care Teams Oncology Social Work Relationship Specialty Start Date End Date Sanju Disla MD PCP - General 05/07/1997 documented as of this encounter
--- OUTSIDE RECORDS SUMMARY | 2025-03-03 09:14 | XMS_ITS | Encounter Summary ---
Author Organization [facility] Address [address] [place] [address] Care Team Providers Care R Programmer Name Role Phone Sanju Disla MD Primary Care Provider Unava ilable Reason for Visit * Reason Comments E-prescribe Rx Request Encounter Details Date Type Department Care Team Description 08/24/2019 Refill Pulmonology - [place] 175 [facility] [address] [place] [address] Jayshree Gibbs MD [address] [place] [address] E-prescribe Rx Request Social History [...] encounter Miscellaneous Notes * Telephone Encounter - Deb Lawrence - 08/24/2019 9:47 AM EST Patient would like script to be: E-PRESCRIBED/FAXED TO PHARMACY WHEN WAS THE PATIENT'S LAST APPOINTMENT WITH THE PRESCRIBING PROVIDER? 07/21/19 Does patient have an upcoming appointment? Yes 01/19/20 (THE MEDICATION REQUESTED IS ON THE MED LIST ABOVE) All of the medications requested were on the CURRENT MEDS list Did you check the Pharmacy information above?: YES Patient wants: 30 -day supply Is this a mail order prescription request ? NO Patients current insurance carrier is: Payor: [employer] / Plan: [employer]IC[employer] / Product Type: MEDICARE [id number] documented in this encounter Plan of Treatment Not on file documented as of this encounter Visit Diagnoses Not on filedocumented in this encounter Care Teams R Programmer Relationship Specialty Start Date End Date Sanju Disla MD PCP - General 05/07/1997 documented as of this encounter
--- OUTSIDE RECORDS SUMMARY | 2025-03-03 09:14 | XMS_ITS | Encounter Summary ---
Author Organization [facility] Address [address] [place] [address] Care Team Providers Care Yarn Handler Name Role Phone Sanju Disla MD Primary Care Provider Unava ilable Reason for Visit * Reason Comments E-prescribe Rx Request Encounter Details Date Type Department Care Team Description 10/08/2022 Refill Pulmonology - [place] 175 [facility] [address] [place] [address] Jayshree Gibbs MD [address] [place] [phone] E-prescribe Rx Request Social History Tobacco Use [...] EDT pended * Telephone Encounter - Ping Valdez - 10/16/2022 8:45 AM EDT Pharmacy fax [...] / [place] / Product Type: MEDICARE [id number] documented in this encounter Plan of Treatment Not on file documented as of this encounter Visit Diagnoses Diagnosis Chronic obstructive pulmonary disease, unspecified COPD type (HCC) documented in this encounter Care Teams Yarn Handler Relationship Specialty Start Date End Date Sanju Disla MD PCP - General 05/07/1997 documented as of this encounter
--- OUTSIDE RECORDS SUMMARY | 2025-03-03 09:14 | XMS_ITS | Encounter Summary ---
Author Organization [facility] Address [address] [place] [address] Care Team Providers Care Puppy Walker Name Role Phone Sanju Disla MD Primary Care Provider Unava ilable Reason for Visit * Reason Comments E-prescribe Rx Request Encounter Details Date Type Department Care Team Description 12/08/2020 Refill Pulmonology - [place] 175 [facility] [address] [place] [phone] Jayshree Gibbs MD [address] [place] [phone] E-prescribe Rx Request Social History Tobacco Use [...] encounter Miscellaneous Notes * Telephone Encounter - Dana Schneider - 12/11/2020 3:05 PM EDT TIFFANIE 11/18/2020 90 day supply. documented in this encounter Plan of Treatment Not on file documented as of this encounter Visit Diagnoses Diagnosis Severe chronic obstructive pulmonary disease (HCC) Chronic airway obstruction, not elsewhere classified documented in this encounter Care Teams Puppy Walker Relationship Specialty Start Date End Date Sanju Disla MD PCP - General 05/07/1997 documented as of this encounter
--- OUTSIDE RECORDS SUMMARY | 2025-03-03 09:14 | XMS_ITS | Encounter Summary ---
Author Organization [facility] Address [address] [place] [address] Care Team Providers Care Roll Mill Operator Name Role Phone Sanju Disla MD Primary Care Provider Unava ilable Reason for Visit * Reason Onset Date Comments Medication 03/23/2019 Encounter Details Date Type Department Care Team Description 03/23/2019 Refill Pulmonology - [place] 175 [facility] [address] [place] [phone] Jayshree Gibbs MD [address] [place] [phone] Medication Social History Tobacco Use Types Packs/Day [...] MED LIST AND IS IDENTIFIED BELOW): {MED LIST:01914) Med name: predniSONE (DELTASONE) 20 Dosage: 20 [...] Primary documented in this encounter Care Teams Roll Mill Operator Relationship Specialty Start Date End Date Sanju Disla MD PCP - General 05/07/1997 documented as of this encounter
--- OUTSIDE RECORDS SUMMARY | 2025-03-03 09:14 | XMS_ITS | Encounter Summary ---
Author Organization [facility] Address [address] [place] [address] Care Team Providers Care Apartment Assistant Manager Name Role Phone Sanju Disla MD Primary Care Provider Unava ilable Reason for Visit * Reason Onset Date Comments refill request 07/26/2018 Encounter Details Date Type Department Care Team Description 07/26/2018 Refill Pulmonology - [place] [address] [facility] [address] [place] [address] Jayshree Gibbs MD [address] [place] [address] refill request Social History Tobacco [...] encounter Miscellaneous Notes * Telephone Encounter - Yaneth Bethea - 07/26/2018 1:11 PM EST Patient would like script to be: E-PRESCRIBED/FAXED TO PHARMACY WHEN WAS THE PATIENT'S LAST APPOINTMENT WITH THE PRESCRIBING PROVIDER? 06/23/18 Does patient have an upcoming appointment? Yes 09/22/18 (THE MEDICATION REQUESTED IS ON THE MED LIST ABOVE) All of the medications requested were on the CURRENT MEDS list Did you check the Pharmacy information above?: YES Patient wants: 30 -day supply Is this a mail order prescription request ? NO Patients current insurance carrier is: Payor: [employer] / Plan: [employer] / Product Type: MEDICARE [id number] documented in this encounter Plan of Treatment Not on file documented as of this encounter Visit Diagnoses Not on filedocumented in this encounter Care Teams Apartment Assistant Manager Relationship Specialty Start Date End Date Sanju Disla MD PCP - General 05/07/1997 documented as of this encounter
--- OUTSIDE RECORDS SUMMARY | 2025-03-03 09:14 | XMS_ITS | Encounter Summary ---
Author Organization [facility] Address [address] [place] [address] Care Team Providers Care Application Support Intern Name Role Phone Sanju Disla MD Primary Care Provider Unava ilable Reason for Visit * Reason Comments E-prescribe Rx Request Encounter Details Date Type Department Care Team Description 03/02/2020 Refill Pulmonology - [place] 175 [facility] [address] [place] [address] Jayshree Gibbs MD [address] [place] [phone] E-prescribe Rx Request Social History Tobacco Use [...] / [place] / Product Type: MEDICARE [id number] documented in this encounter Plan of Treatment Not on file documented as of this encounter Visit Diagnoses Diagnosis Severe chronic obstructive pulmonary disease (HCC) Chronic airway obstruction, not elsewhere classified documented in this encounter Care Teams Application Support Intern Relationship Specialty Start Date End Date Sanju Disla MD PCP - General 05/07/1997 documented as of this encounter
--- OUTSIDE RECORDS SUMMARY | 2025-03-03 09:14 | XMS_ITS | Encounter Summary ---
Author Organization [facility] Address [address] [place] [address] Care Team Providers Care Booth Usher Name Role Phone Sanju Disla MD Primary Care Provider Unava ilable Reason for Visit * Reason Comments E-prescribe Rx Request Encounter Details Date Type Department Care Team Description 08/18/2019 Refill Pulmonology - [place] 175 [facility] [address] [place] [address] Jayshree Gibbs MD [address] [place] [phone] E-prescribe Rx Request Social History Tobacco Use [...] NO Patients current insurance carrier is: Payor: [employer] / Plan: [employer]IC[employer] / Product Type: MEDICARE [id number] documented in this encounter Plan of Treatment Not on file documented as of this encounter Visit Diagnoses Not on filedocumented in this encounter Care Teams Booth Usher Relationship Specialty Start Date End Date Sanju Disla MD PCP - General 05/07/1997 documented as of this encounter
--- OUTSIDE RECORDS SUMMARY | 2025-03-03 09:14 | XMS_ITS | Encounter Summary ---
Author Organization [facility] Address [address] [place] [address] Care Team Providers Care Top Cleaner Name Role Phone Sanju Disla MD Primary Care Provider Unanas ilable Encounter Details Date Type Department Care Team Description 09/20/2023 Orders Only [facility] Lung Screening Program [place] [address] [facility] [address] [place] [phone] Eric Sellers PA-C [address] [facility] [address] [place] [phone] Pulmonary nodule Social History Tobacco Use Types [...] nodule documented in this encounter Care Teams Top Cleaner Relationship Specialty Start Date End Date Sanju Disla MD PCP - General 05/07/1997 documented as of this encounter
--- OUTSIDE RECORDS SUMMARY | 2025-03-03 09:14 | XMS_ITS | Encounter Summary ---
Author Organization [facility] Address [address] [place] [address] Care Team Providers Care Intermission Coordinator Name Role Phone Sanju Disla MD Primary Care Provider Unava ilable Reason for Visit * Reason Comments E-prescribe Rx Request Encounter Details Date Type Department Care Team Description 01/23/2020 Refill Pulmonology - [place] 175 [facility] [address] [place] [phone] Jayshree Gibbs MD [address] [place] [phone] E-prescribe Rx Request Social History Tobacco Use [...] encounter Miscellaneous Notes * Telephone Encounter - Luli Stevenson - 02/01/2020 12:42 PM EDT Volodymyr 01/31/2020 Next 06/03/2020 90 day supply * Telephone Encounter - Dana Schneider - 01/25/2020 2:30 PM EDT Patient is calling for this medication. * Telephone Encounter - Deb Oliveiramichael - 01/23/2020 3:44 PM EDT Patient would like script to be: E-PRESCRIBED/FAXED TO PHARMACY WHEN WAS THE PATIENT'S LAST APPOINTMENT WITH THE PRESCRIBING PROVIDER? 12/15/19 Does patient have an upcoming appointment? Yes 01/31/20 (THE MEDICATION REQUESTED IS ON THE MED LIST ABOVE) All of the medications requested were on the CURRENT MEDS list Did you check the Pharmacy information above?: YES Patient wants: 90 -day supply Is this a mail order prescription request ? NO Patients current insurance carrier is: [place] / [place] / Product Type: MEDICARE [id number] documented in this encounter Plan of Treatment Not on file documented as of this encounter Visit Diagnoses Not on filedocumented in this encounter Care Teams Intermission Coordinator Relationship Specialty Start Date End Date Sanju Disla MD PCP - General 05/07/1997 documented as of this encounter
--- OUTSIDE RECORDS SUMMARY | 2025-03-03 09:14 | XMS_ITS | Encounter Summary ---
Author Organization [facility] Address [address] [place] [address] Care Team Providers Care Photographer Finish Name Role Phone Sanju Disla MD Primary Care Provider Unava ilable Reason for Visit * Reason Comments E-prescribe Rx Request Encounter Details Date Type Department Care Team Description 05/15/2020 Refill Pulmonology - [place] 175 [facility] [address] [place] [phone] Jayshree Gibbs MD [address] [place] [phone] E-prescribe Rx Request Social History Tobacco Use [...] * Telephone Encounter - Luli Stevenson - 05/15/2020 2:36 PM EST Volodymyr 01/31/2020 Next 06/03/2020 30 days supply documented in this encounter Plan of Treatment Not on file documented as of this encounter Visit Diagnoses Not on filedocumented in this encounter Care Teams Photographer Finish Relationship Specialty Start Date End Date Sanju Disla MD PCP - General 05/07/1997 documented as of this encounter
--- OUTSIDE RECORDS SUMMARY | 2025-03-03 09:14 | XMS_ITS | Encounter Summary ---
Author Organization [facility] Address [address] [place] [address] Care Team Providers Care Granite Worker Name Role Phone Sanju Disla MD Primary Care Provider Unava ilable Reason for Visit * Reason Onset Date Comments E-prescribe Rx Request 12/03/2020 Encounter Details Date Type Department Care Team Description 12/03/2020 Telephone Pulmonology - [place] [address] [facility] [address] [place] [phone] Jayshere Gibbs MD [address] [place] [phone] E-prescribe Rx Request Social History Tobacco Use [...] * Telephone Encounter - Luli Stevenson - 12/04/2020 8:39 AM EDT Order was faxed yesterday to [facility]. Patient would need to call them [phone] unless he wants a copy we can print it out for him. * Telephone Encounter - Jayshree Gibbs MD - 12/03/2020 5:38 PM EDT See 11/27/20 encounter- faxed to [facility] * Telephone Encounter - Jaime Ramsey - 12/03/2020 3:22 PM EDT Patient states told by [facility] that he needs a rx for an oxygen mask, needs as soon as possible. documented in this encounter Plan of Treatment Not on file documented as of this encounter Visit Diagnoses Not on filedocumented in this encounter Care Teams Granite Worker Relationship Specialty Start Date End Date Sanju Disla MD PCP - General 05/07/1997 documented as of this encounter
--- OUTSIDE RECORDS SUMMARY | 2025-03-03 09:14 | XMS_ITS | Encounter Summary ---
Author Organization [facility] Address [address] [place] [address] Care Team Providers Care Test Tech Name Role Phone Sanju Disla MD Primary Care Provider Kirk mendez Encounter Details Date Type Department Care Team Description 11/22/2018 Final Touch Up Painter Report Medical Records [address] [place] [address] Annika Melo PA-C [address] [place] [phone] Social History Tobacco Use Types Packs/Day [...] on filedocumented in this encounter Care Teams Test Tech Relationship Specialty Start Date End Date Sanju Disla MD PCP - General 05/07/1997 documented as of this encounter
--- OUTSIDE RECORDS SUMMARY | 2025-03-03 09:14 | XMS_ITS | Patient Health Record ---
Author Organization [facility] Address [address] [place] [address] Care Team Providers Care Clinical Professor Name Role Phone Naif RUCKER, [place] Primary Care Provider Rustam Vega Jr Unavailable [phone] Reason For Referral No Information Medications Medication [...] TOTAL CARE/ 21-64 Yrs [address] [address] [place] [address] [id number] ANNA MCKEON Self - patient is the insured Medicare of [facility] [address] [place] [address] [id number] ANNA MCKEON Self - patient is the insured MEDICAID OF [facility] [address] [place] [address] [id number] ANNA MCKEON Self - patient is the insured Medical (General) History Medical History History ICD Code colonoscopy 11-07-2008 colon polyps asthma bronchitis elevated cholesterol hypertension Surgical History Surgery Date(Month/Year) knee arthroscopy
--- OUTSIDE RECORDS SUMMARY | 2025-03-03 09:14 | XMS_ITS | Encounter Summary ---
Author Organization [facility] Address [address] [place] [address] Care Team Providers Care Education And Training Coordinator Name Role Phone Sanju Disla MD Primary Care Provider Kirk mendez Encounter Details Date Type Department Care Team Description 05/17/2019 [facility] Medical Records [address] [place] [id number] Abstract, Provider Social History Tobacco Use Types [...] on filedocumented in this encounter Care Teams Education And Training Coordinator Relationship Specialty Start Date End Date Sanju Disla MD PCP - General 05/07/1997 documented as of this encounter
--- OUTSIDE RECORDS SUMMARY | 2025-03-03 09:14 | XMS_ITS | Encounter Summary ---
Author Organization [facility] Address [address] [place] [address] Care Team Providers Care Operator Electronic Warfare Name Role Phone Sanju Disla MD Primary Care Provider Kirk mendez Encounter Details Date Type Department Care Team Description 05/06/2023 Orders Only [facility] Lung Screening Program [place] [address] [facility] [address] [place] [phone] Estuardo Marcum MD 299 [facility] [address] [place] [address] History of tobacco use, presenting hazards to health (Primary Dx); Encounter for screening for lung cancer Social [...] suspected to have Coronavirus/COVID-19? No / Unsure 04/26/2023 10:40 AM EDT documented as of this encounter Plan of Treatment Not on file documented as of this encounter Results * CT LOW DOSE LUNG SCREEN ANNUAL (06/15/2023) Estuardo Marcum MD CT SCANS documented in this encounter Visit Diagnoses Diagnosis History of tobacco use, presenting hazards to health- Primary Personal history of tobacco use, presenting hazards to health Encounter for screening for lung cancer documented in this encounter Care Teams Operator Electronic Warfare Relationship Specialty Start Date End Date Sanju Disla MD PCP - General 05/07/1997 documented as of this encounter
--- OUTSIDE RECORDS SUMMARY | 2025-03-03 09:14 | XMS_ITS | Encounter Summary ---
Author Organization [facility] Address [address] [place] [address] Care Team Providers Care Natural Resources Faculty Member Name Role Phone Sanju Disla MD Primary Care Provider Kirk mendez Encounter Details Date Type Department Care Team Description 06/03/2020 Armored Machine Operator Report Medical Records [address] [place] [address] González Conley MD Social History Tobacco Use [...] on filedocumented in this encounter Care Teams Natural Resources Faculty Member Relationship Specialty Start Date End Date Sanju Disla MD PCP - General 05/07/1997 documented as of this encounter
--- OUTSIDE RECORDS SUMMARY | 2025-03-03 09:14 | XMS_ITS | Encounter Summary ---
Author Organization [facility] Address [address] [place] [address] Care Team Providers Care Hand Binder Stripper Name Role Phone Sanju Disla MD Primary Care Provider Kirk mendez Encounter Details Date Type Department Care Team Description 01/25/2020 Telephone Pulmonology - [place] 175 [facility] [address] [place] [address] Jayshree Gibbs MD [address] [place] [address] Social History Tobacco Use Types [...] on filedocumented in this encounter Care Teams Hand Binder Stripper Relationship Specialty Start Date End Date Sanju Disla MD PCP - General 05/07/1997 documented as of this encounter
[2025-03-03 09:23] VITALS: BP 114/64; PULSE 85; RESP 17; TEMP 36.7; O2SAT 94; BMI 28.9
--- NOTE | 2025-03-03 09:23 | AM.OFFWIN_ITS ---
Intake Vital Signs 03/03/25 09:23 Height 6 ft Weight 213 lb BMI 28.9 BP 114/64 Blood Pressure Location Rt brachial Position Sitting Respiration 17 Pulse 85 Pulse Source Pulse Oximeter Temp 98.0 F Temp Source Oral Pulse Oximetry (%) 94 Oxygen Delivery Method Room Air Intake Visit Reasons: EP Sore throat Intake Note: Pt is here today c/o sorethroat x2days Patient Tobacco Use Status: Current everyday Tobacco user Allergies No Known Allergies Allergy (Verified 03/03/25 09:41) Medication List - Last Reconciled 03/03/25 by Dior Carlin, SENIOR BUSINESS DEVELOPMENT MANAGER- albuterol sulfate 90 mcg/actuation (Ventolin HFA) 2 puffs inhalation Q6H PRN albuterol sulfate 2.5 mg (3 mL) continuous nebulization QID PRN allopurinol 100 mg PO DAILY 90 days amlodipine 5 mg PO DAILY aspirin 81 mg PO DAILY atorvastatin 80 mg PO DAILY bisacodyl (Gentle Laxative (bisacodyl)) 10 mg (2 x 5 mg) PO BEDTIME cholecalciferol (vitamin D3) (Vitamin D3) 25 mcg PO DAILY clotrimazole 10 mg mucous membrane .five times a day cyanocobalamin (vitamin B-12) 1,000 mcg PO DAILY docusate sodium 100 mg PO BEDTIME zljwsyikwbm-axclaxxsz-xkgwasna 200-62.5-25 mcg (Trelegy Ellipta) 1 ea inhalation DAILY isosorbide mononitrate ER 30 mg PO DAILY losartan 100 mg PO DAILY nitroglycerin 0.4 mg sublingual Q5M nystatin 500,000 units (5 mL) mucous membrane TID 10 days nystatin 4 mL PO QID 7 days pantoprazole 40 mg PO DAILY polyethylene glycol 3350 (Miralax) 17 grams PO DAILY potassium citrate ER 20 mEq (2 x 10 mEq (1,080 mg)) PO BID 90 days roflumilast (Daliresp) 500 mcg PO DAILY tamsulosin 0.4 mg PO BEDTIME 14 days HPI HPI Comments History of Present Illness Details History - The patient is a 65-year-old male pres enting with a dry sensation in his throat - Onset: 2 days ago - Symptoms: Throat dryness, difficult sw allowing. No pain - No fever or chills - Nystatin tried as this has helped in t he past, has been using for about 2 days, but ineffective - Negative strep test today - History: Former smoker Review of Systems - HEENT: Reports sore throat, dryness, d ifficulty swallowing. Denies runny nose or fever. - General: Denies chills. - Gastrointestinal: Denies symptoms of a job reflux. Physical Exam General: Awake, alert. No apparent distress Eyes: Sclera and conjunctiva clear bilaterally Throat: Moist mucosa membrane, pharynx + erythema, uvula midline, no exudate, no hot potatoe voice, swollen lymph nodes present in the neck bilat, nontender. I did not appreciate any thrush Respiratory: speaking in full sentences, no cough. Results - Tests: Rapid strep test performed toda y, result is negative. Discussion Notes I discussed with the patient that the sore throat does not appear to be due to a bacterial infection since the rapid strep test returned negative. The nystatin has not been effective, and the presence of swollen lymph nodes could be contributing to his symptoms. I advised the patient to continue using nystatin as prescribed and add salt water gargles, which may provide some relief. I emphasized the importance of following up with his primary care physician, Dr. Cavanaugh, to evaluate the lymphadenopathy. DDx: includes thrush, viral pharyngitis, GERD, cannot r/o malignancy given smoking hx. Patient was given time to ask questions. All questions were answered to their satisfaction. Assessment and Plan 1. Sore throat - Continue nystatin, introduce salt wate r gargles, follow up with PCP. 2. History of smoking - Reinforce smoking cessation. 3. Swollen lymph nodes - Note bilateral nodes, follow up with P CURT[facility]. Patient Instructions - Continue taking nystatin as prescribed by your primary doctor. - Use salt water gargles to help soothe your throat. - Follow up with your primary doctor to check your swollen lymph nodes. - If you notice new symptoms like fever or chills, contact your doctor right away. - Remember the benefits of quitting smok ing for your health. Consent Patient was informed and verbally consented to the use of an ambient scribe for clinic note documentation during this visit. Total time spent caring for the patient today was 30 minutes. This includes time spent before the visit reviewing the chart, time spent during the visit, and time spent after the visit on documentation, reviewing laboratory results, diagnostic imaging, medications, performing a medically necessary evaluation, counseling on diagnoses, care coordination, ordering appropriate tests, ordering appropriate medications, review of tests performed by other providers, reporting test results with the patient, communication with other healthcare providers. [facility] Medical History Oral thrush Allergic rhinitis Overweight (BMI 25.0-29.9) Constipation Atherosclerotic cardiovascular disease Swelling of left lower extremity Vitamin B12 deficiency GERD without esophagitis Anterior chest wall pain Mixed hyperlipidemia Primary insomnia Urinary frequency Neuropathy Vitamin D deficiency Osteoarthritis Lumbar degenerative disc disease Impaired fasting glucose Benign essential hypertension COPD (chronic obstructive pulmonary disease) Headache Epidermoid cyst Surgical History History of total right knee replacement History of cardiac cath History of colonoscopy Family History Father Colon cancer Mother Medical history unknown Social History Housing: Apartment Alcohol intake: former Patient Tobacco Use Status: Current everyday Tobacco user Tobacco use type: Cigarette Cigarettes Per Day: 15 Years Smoked: 30 +/- e-Cigarette/Vaping Use: Never Used Second Hand Smoke Exposure: Yes service: No Current occupational status: disabled Cognitive needs: No Hearing needs: Yes Vision needs: Yes (reading glasses) Physical Exam Vital Signs: Last Vital Signs Temp 98.0 F 03/03/25 09:23 Pulse 85 03/03/25 09:23 Resp 17 03/03/25 09:23 BP 114/64 03/03/25 09:23 Pulse Ox 94 03/03/25 09:23 Oxygen Delivery Method Room Air 03/03/25 09:23 BMI result Body Mass Index 28.9 Results AMB Rapid Strep AMB Rapid Strep Negative Last Edit by Shawanda Diez CMA on 03/03/25 09:33 Results Reviewed Results Reviewed: Laboratory Last Values Strep Scn Rapid Clinic Negative 03/03/25 09:23 Assessment & Plan Assessment & Plan (1) Cervical adenopathy: Code(s): R59.0 - Localized enlarged lymph nodes (2) Former smoker: Code(s): Z87.891 - Personal history of nicotine dependence (3) Pharyngitis: Code(s): J02.9 - Acute pharyngitis, unspecified Qualifiers: Pharyngitis/tonsillitis etiology: unspecified etiology Qualified Code(s): J02.9 - Acute pharyngitis, unspecified Plan . Orders: Orders AMB Rapid Strep Screen Today Z13.9 - Encounter for screening, unspecified Patient Instructions: Patient Instructions - Continue taking nystatin as prescribed by your primary doctor. - Use salt water gargles to help soothe your throat. - Follow up with your primary doctor to check your swollen lymph nodes. - If you notice new symptoms like fever or chills, contact your doctor right away. - Remember the benefits of quitting smoking for your health. Coding Level of Care Code Est Pt Level 4 (69875) Diagnoses Cervical adenopathy R59.0 Former smoker Z87.891 Pharyngitis, unspecified etiology J02.9 Pharyngitis/tonsillitis etiology: unspecified etiology
== END 2025-03-03 09:52 | disposition home or self-care (01) ==
PROVIDERS: PCP Internal Medicine; Visit Provider Nurse Practitioner Family
DX: R59.0 Localized enlarged lymph nodes (principal); Z87.891 Personal history of nicotine dependence; J02.9 Acute pharyngitis, unspecified; Z13.9 Encounter for screening, unspecified

== ENCOUNTER → 2025-03-03 09:11 | Outpatient (BNVA) | payer MEDICARE, MEDICAID, SELFPAY | PROVIDERS: PCP Internal Medicine; Visit Provider Nurse Practitioner Family | DX: R59.0 Localized enlarged lymph nodes (principal); J02.9 Acute pharyngitis, unspecified; Z87.891 Personal history of nicotine dependence | CPT/HCPCS: 87880; 99212 ==

== ENCOUNTER 2025-03-19 14:32 | Outpatient (AMB) | payer MEDICARE, MEDICAID, SELFPAY ==
[2025-03-19 14:39] VITALS: BP 162/80; PULSE 86; TEMP 37.1; O2SAT 93; BMI 29.0
--- NOTE | 2025-03-19 14:39 | AM.OFFWIN_ITS ---
Intake Vital Signs 03/19/25 14:39 Height 6 ft Weight 214 lb BMI 29.0 BP 162/80 H Blood Pressure Location Lt brachial Position Sitting Pulse 86 Pulse Source Pulse Oximeter Temp 98.8 F Temp Source Oral Pulse Oximetry (%) 93 Oxygen Delivery Method Room Air Intake Visit Reasons: EP thrush in throat Intake Note: pt presents with oral thrush for about 5 days Patient Tobacco Use Status: Current everyday Tobacco user Allergies No Known Allergies Allergy (Verified 03/19/25 14:42) Do you need a note to return to daycare/school/sports/work: No HPI HPI Comments History of Present Illness Details 65 y/o Male patient who presents to the walk in clinic with recurrent Oral Thrush. He does have COPD and his Pulmonology switched his Inhalers and removed the Inhaled Corticosteroids to help prevent further Thrush. Reports that Nystatin Liquid has been helping him well and asking for refills. [facility] Medical History Oral thrush Allergic rhinitis Overweight (BMI 25.0-29.9) Constipation Atherosclerotic cardiovascular disease Swelling of left lower extremity Vitamin B12 deficiency GERD without esophagitis Anterior chest wall pain Mixed hyperlipidemia Primary insomnia Urinary frequency Neuropathy Vitamin D deficiency Osteoarthritis Lumbar degenerative disc disease Impaired fasting glucose Benign essential hypertension COPD (chronic obstructive pulmonary disease) Headache Epidermoid cyst Surgical History History of total right knee replacement History of cardiac cath History of colonoscopy Family History Father Colon cancer Mother Medical history unknown Social History Housing: Apartment Alcohol intake: former Patient Tobacco Use Status: Current everyday Tobacco user Tobacco use type: Cigarette Cigarettes Per Day: 15 Years Smoked: 30 +/- e-Cigarette/Vaping Use: Never Used Second Hand Smoke Exposure: Yes service: No Current occupational status: disabled Cognitive needs: No Hearing needs: Yes Vision needs: Yes (reading glasses) Review of Systems Const All systems reviewed & are unremarkable except as noted in HPI and below Physical Exam Vital Signs: Last Vital Signs Temp 98.8 F 03/19/25 14:39 Pulse 86 03/19/25 14:39 BP 162/80 H 03/19/25 14:39 Pulse Ox 93 03/19/25 14:39 Oxygen Delivery Method Room Air 03/19/25 14:39 BMI result Body Mass Index 29.0 Const General: no acute distress Orientation/consciousness: patient oriented x3 HEENT Mouth: moist mucous membranes and tongue abnormal discolored and with white coating Throat: Yes uvula midline Neuro General: patient oriented x3, gait normal and moves all extremities Psych Speech and movement: Normal speech and movement present Assessment & Plan Assessment & Plan (1) Oral thrush: Code(s): B37.0 - Candidal stomatitis Plan: Ordered Systemic Anti-fungal medication - Fluconazole for 4 weeks Refilled the Nystatin medication Medications: New fluconazole 150 mg PO QWEEK 4 tabs 0RF 4 weeks B37.0 - Candidal stomatitis Refilled nystatin swish dose in each side of the mouth for a few minutes, then swallow - repeat 3 times a day x 7 to 10 days 500,000 units (5 mL) mucous membrane TID 150 mL 0RF 10 days Discontinued clotrimazole Discontinued Reason: Patient Completed Course 10 mg mucous membrane .five times a day 50 tabs 0RF nystatin Swish in the mouth and retain for as long as possible (several minutes) before swallowing. Discontinued Reason: Patient Completed Course 4 mL PO QID 7 days 112 mL 0RF B37.0 - Candidal stomatitis Coding Level of Care Code Est Pt Level 4 (99794) Diagnoses Oral thrush B37.0 Time Spent (min) 20
--- OUTSIDE RECORDS SUMMARY | 2025-03-19 19:59 | XMS_ITS | Patient Health Record ---
Author Organization [facility] Address [address] [place] [address] Care Team Providers Care Lpn Rn Name Role Phone Naif RUCKER, [place] Primary Care Provider Rustam Vega Jr Unavailable [phone] Reason For Referral No Information Medications Medication [...] Status Risk Notes Problem Colon cancer screening ([id number]) Colon cancer screening (V76.51) Active confirmed Plan Of Treatment Future Test Test Name Order Date COLONOSCOPY 08/30/2013 Insurance Providers Payer Name Payer Address Payer Phone Subscriber Number Group Number Insured Name Patient Relationship to Insured Coverage Start Date Coverage End Date [employer]/ 21-64 Yrs [address] [address] [place] [address] [id number] ANNA MCKEON Self - patient is the insured Medicare of [facility] [address] [place] [address] [id number] ANNA MCKEON Self - patient is the insured MEDICAID OF [facility] [address] [place] [address] [id number] ANNA MCKEON Self - patient is the insured Medical (General) History Medical History History ICD Code colonoscopy 11-07-2008 colon polyps asthma bronchitis elevated cholesterol hypertension Surgical History Surgery Date(Month/Year) knee arthroscopy
--- OUTSIDE RECORDS SUMMARY | 2025-03-19 19:59 | XMS_ITS | Clinical Summary ---
Author Organization [address] [facility] Address [address] [place] [address] Phone Care Team Providers Care Obstetrics And Gynecology Professor Name Role Phone Sanju Disla MD Primary Care Provider Allergies No known active allergies Medications albuterol 2.5 mg /3 mL (0.083 %) nebulizer solution Inhale 3 mL (2.5 mg total) by mouth. 012 Active aspirin 81 mg EC tablet Take [...] by mouth 1 (one) time each day. 024 Active potassium citrate (UROCIT-K) 10 mEq (1,080 mg) CR tablet Take 2 tablets (20 mEq total) by mouth 2 (two) times a day with meals. Active losartan (COZAAR) 100 mg tablet Take 1 tablet (100 mg total) by mouth 1 (one) time each day. Active fluticasone propionate (FLONASE) 50 mcg/actuation nasal spray Administer 1 spray into each nostril 1 (one) time each day. Active bisacodyL (DULCOLAX) 5 mg EC tablet Take 2 tablets (10 mg total) by mouth at bedtime. at bedtime Active Oxygen Therapy (O2) gas 2 L/min continuously if needed. Active medical supply, miscellaneous (MISCELLANEOUS MEDICAL SUPPLY MISC) Spacer/Aero-Hol ding Chambers (AEROCHAMBER MV) Misc 1 Device by Does not apply route as needed (wheezing). Active cholecalciferol (VITAMIN D-3) 50 mcg (2,000 unit) tablet Take 1 tablet (2,000 Units total) by mouth 1 (one) time each day. Take by mouth. - Oral Active albuterol HFA (PROAIR HFA ; PROVENTIL HFA ; VENTOLIN HFA) 90 mcg/actuation inhaler USE 2 INHALATIONS ORALLY EVERY 4 HOURS NEEDED FORSHORTNESS OF BREATH OR WHEEZING 18 g 6 Active cyanocobalamin (VITAMIN B-12) 1,000 mcg tablet Take 1 tablet (1,000 mcg total) by mouth 1 (one) time each day. Active roflumilast (DALIRESP) 500 mcg tablet TAKE 1 TABLET DAILY 90 tablet 1 Active dextromethorphan -guaiFENesin (ROBITUSSIN-DM) 10-100 mg/5 mL syrup Take 10 mL by mouth every 4 (four) hours if needed for cough. 473 mL 1 Active nicotine (NICODERM CQ) 21 mg/[address] 1 patch on the skin 1 (one) time each day at the same time. 30 each Active predniSONE (DELTASONE) 20 mg tablet 1-2 tab po qd prn for copd exacerbation 10 each 09/03/2 025 Active umeclidinium-rolly anteroL (Anoro Ellipta) 62.5-25 mcg/actuation inhaler Inhale 1 puff by mouth 1 (one) time each day. 1 each 025 2025 Active fluticasone-umec lidinium-vilante rol (Trelegy Ellipta) 200-62.5-25 mcg inhaler USE 1 INHALATION ORALLY DAILY 1 each 025 2024 Discontinued doxycycline (MONODOX) 100 mg capsule Take 1 capsule (100 mg total) by mouth every 12 (twelve) hours for 10 doses. Take with at least 8 ounces (large glass) of water, do not lie down for 30 minutes after. Administer 2 hours before or after multivitamins, antacids, or other products containing polyvalent cations (i.e., calcium, iron, magnesium, selenium, zinc). 10 each 025 2024 predniSONE (DELTASONE) 20 mg tablet Take 2 tablets (40 mg total) by mouth 1 (one) time each day for 4 doses. 8 each 025 2024 umeclidinium-rolly anteroL (Anoro Ellipta) 62.5-25 mcg/actuation inhaler Inhale 1 puff by mouth 1 (one) time each day. 1 each 025 2024 Discontinued Active Problems Problem Noted Date Diagnosed Date SOB (shortness of breath) 02/16/2025 Coronary artery disease invo lving knik coronary artery of knik heart without angina pectoris 07/11/2024 Assessment & [...] Acute on chronic hypoxic res piratory failure ([facility] V24, [facility] V28) 05/15/2024 COPD exacerbation ([facility] V24, [facility] V28) 04/2024 Inclusion cyst 05/08/2019 [...] 08/10/2017 Chronic obstructive pulmonar y disease (COPD) ([facility] V24, [facility] V28) 02/11/2017 Resolved Problems Problem Noted Date Diagnosed Date Resolved Date Chest pain 07/03/2024 07/11/2024 Encounters Date Type Department Care Team Description 03/07/2025 2:45 PM EDT Office Visit Pulmonol - [address] [address] Jayshree Gibbs MD Acute on chronic hypoxic respiratory failure ([facility] V24, [facility] V28) (Primary Dx); Supplemental oxygen dependent; Pulmonary emphysema, unspecified emphysema type ([facility] V24, [facility] V28) 02/15/2025 9:32 PM EDT - 02/16/2025 2:46 PM EDT Hospital Encounter [facility] [address] [place] [address] Tomer Holland MD Ishtiaq, MD Jacquelyn Fenton Alistair A, MD COPD exacerbation ([facility] V24, [facility] V28) (Primary Dx); Acute on chronic respiratory failure with hypoxia ([facility] V24, [facility] V28) Discharge Disposition: Home or Self Care 12/25/2024 Telephone [facility] [address] [place] [address] Hayes Han MD from Last 3 Months Immunizations Name Administration Dates Next Due Influenza Quadravalent, MDCK , 0.5ml, preservative free (Flucelvax) 6mo and older 04/28/2022 Surgical History Surgery Date Site/Laterality Comments KNEE SURGERY PROCEDURE: HISTORICAL KNEE SURGERY DENTAL SURGERY PROCEDURE: [place] UNLISTED PROCEDURE DENTOALVEOLAR STRUCTURES Medical History Medical History Date Comments Arthritis DX:Arthritis Cholelithiasis 08/10/2017 DX:Cholelithiasi s Diverticulosis 08/10/2017 DX:Diverticulosi s Hyperlipidemia 08/10/2017 DX:Hyperlipidemi a Tobacco use 02/11/2017 DX:Tobacco use Chronic obstructive pulmonar y disease (COPD) ([facility] V24, [facility] V28) 02/11/2017 DX:Chronic obstructi ve pulmonary disease (COPD) ([facility]) Supplemental oxygen dependent 08/10/2017 DX [...] Sign Reading Time Taken Comments Blood Pressure 116/68 03/07/2025 3:06 PM EDT Pulse 84 03/07/2025 3:06 PM EDT Temperature 36.5 C (97.7 F) 03/07/2025 3:06 PM EDT Respiratory Rate 20 03/07/2025 3:06 PM EDT Oxygen Saturation 92% 03/07/2025 3:06 PM EDT Inhaled Oxygen Concentration - - Weight 97.1 kg (214 lb) 02/15/2025 9:28 PM EDT Height 182.9 cm (6') 02/15/2025 9:28 PM EDT Body Mass Index 29.02 02/15/2025 9:28 PM EDT Plan of Treatment Upcoming Encounters Date Type Department Care Team (Late st Contact Info) Description 05/09/2025 1:30 PM EST Office Visit Pul[place]ol - [place] [address] [place] [id number] Jayshree Gibbs MD [address] [facility] [address] [place] [address] Health Maintenance Due Date Last Done Comments Diabetes: Annual Foot Exam 01/12/1968 Diabetes: Annual Retina Eye Exam 01/12/1968 Pneumococcal Vaccine: 50+ Years (2 of 2 - PCV) 06/09/2018 06/09/2017, 11/16/2015 Abdominal Aortic Aneurysm (AAA) Screen 06/13/2022 Cholesterol Screening (Lipid Panel) 06/13/2022 Colorectal Cancer Screening: Colonoscopy 06/13/2022 Hepatitis C Screening 06/13/2022 Medicare Annual Wellness Visit 06/13/2022 Social Influencers of Health Screening 06/13/2022 Depression Screening 07/05/2024 Diabetes: Annual Urine Albumin-Creatinine Ratio (uACR) 07/11/2024 Diabetes: Blood Sugar Control Test (HGBA1C) 07/11/2024 COVID-19 Vaccine ( season) 2025 07/14/2021, 11/16/2020, 10/19/2020 Influenza Vaccine (#1) 2025 , 04/01/2023, 04/28/2022, [...] ECG 12-LEAD STAT 02/15/2025 10:19 PM EDT [facility] 30-74 MINUTES Routine 02/15/2025 9:[address] LUNG SCREENING LOW DOSE Routine 06/29/2023 6:57 AM EST Encounter for screening for malignant neoplasm of respiratory organs from Last 3 Months or Most Recently Relevant to Health Maintenance Results * (ABNORMAL) CBC auto differential (02/16/2025 5:06 AM EDT) Only the most recent of2 resultswithin the time period is included. WBC 10.5 4.8 - 10.8 K/mcL LAB HEMETOLOGY METHOD 02/16/2025 5:41 AM EDT [facility] RBC 4.90 4.50 - 5.50 M/mcL LAB HEMETOLOGY METHOD 02/16/2025 5:41 AM EDT [facility] Hemoglobin 15.0 13.5 - 17.5 g/dL LAB HEMETOLOGY METHOD 02/16/2025 5:41 AM [facility] Hematocrit 43.9 42.0 - 54.0 % LAB HEMETOLOGY METHOD 02/16/2025 5:41 AM [facility] MCV 89.2 79.0 - 98.0 FL LAB HEMETOLOGY METHOD 02/16/2025 5:41 AM [facility] MCH 30.5 27.0 - 32.0 pcg LAB HEMETOLOGY METHOD 02/16/2025 5:41 AM [facility] MCHC 34.2 32.0 - 37.0 g/dL LAB HEMETOLOGY METHOD 02/16/2025 5:41 AM [facility] RDW 12.4 11.0 - 15.0 % LAB HEMETOLOGY METHOD 02/16/2025 5:41 AM [facility] Platelets 244 130 - 400 K/mcL LAB HEMETOLOGY METHOD 02/16/2025 5:41 AM [facility] MPV 9.2 7.0 - 11.0 FL LAB HEMETOLOGY METHOD 02/16/2025 5:41 AM [facility] NRBC 0.0 <1.0 % LAB HEMETOLOGY METHOD 02/16/2025 5:41 AM [facility] NRBC Absolute 0.00 <0.10 K/mcL LAB HEMETOLOGY METHOD 02/16/2025 5:41 AM [facility] Neutrophils Relative 96.5 % LAB HEMETOLOGY METHOD 02/16/2025 5:41 AM [facility] Lymphocytes Relative 2.4 % LAB HEMETOLOGY METHOD 02/16/2025 5:41 AM [facility] Monocytes Relative 0.5 % LAB HEMETOLOGY METHOD 02/16/2025 5:41 AM [facility] Eosinophils Relative 0.0 % LAB HEMETOLOGY METHOD 02/16/2025 5:41 AM EDT [facility] Basophils Relative 0.2 % LAB HEMETOLOGY METHOD 02/16/2025 5:41 AM EDT [facility] Immature Granulocytes Relative 0.4 % LAB HEMETOLOGY METHOD 02/16/2025 5:41 AM EDT [facility] Neutrophils Absolute 10.17(H) 1.50 - 7.00 K/mcL LAB HEMETOLOGY METHOD 02/16/2025 5:41 AM EDT [facility] Lymphocytes Absolute 0.25(L) 1.00 - 5.00 K/mcL LAB HEMETOLOGY METHOD 02/16/2025 5:41 AM [facility] Monocytes Absolute 0.05(L) 0.20 - 1.00 K/mcL LAB HEMETOLOGY METHOD 02/16/2025 5:41 AM EDT [facility] Eosinophils Absolute 0.00 0.00 - 0.50 K/mcL LAB HEMETOLOGY METHOD 02/16/2025 5:41 AM EDT [facility] Basophils Absolute 0.02 0.00 - 0.20 K/mcL LAB HEMETOLOGY [facility] Immature Granulocytes Absolute 0.04(H) 0.00 - 0.03 K/mcL LAB HEMETOLOGY METHOD 02/16/2025 5:41 AM EDT [facility] Blood Venous blood specimen / Unknown Venipuncture / Unknown 02/16/2025 5:06 AM EDT 02/16/2025 5:31 AM EDT us Rustam HARRISON LAB BLOOD ORDERABLES Final Res ult [facility] [address] [place] [address], * (ABNORMAL) Basic metabolic panel (02/16/2025 5:06 AM EDT) Sodium 137 133 - 145 mmol/L LAB CHEMISTRY METHOD 02/16/2025 6:04 AM [facility] Potassium 4.0 3.5 - 5.5 mmol/L LAB CHEMISTRY METHOD 02/16/2025 6:04 AM [facility] Chloride 105 96 - 110 mmol/L LAB CHEMISTRY METHOD 02/16/2025 6:04 AM [facility] CO2 26 21 - 32 mmol/L LAB CHEMISTRY METHOD 02/16/2025 6:04 AM [facility] Anion Gap 6 3 - 11 LAB CHEMISTRY METHOD 02/16/2025 6:04 AM [facility] Glucose 151(H) 70 - 100 mg/dL LAB CHEMISTRY METHOD 02/16/2025 6:04 AM [facility] BUN 11 5 - 25 mg/dL LAB CHEMISTRY METHOD 02/16/2025 6:04 AM [facility] Creatinine 1.21 0.70 - 1.30 mg/dL LAB CHEMISTRY METHOD 02/16/2025 6:04 AM [facility] eGFR 66 >=60 mL/min/1. 73m2 LAB CHEMISTRY METHOD 02/16/2025 6:04 AM [facility] Comment:Calculation based on the Chronic Kidney Disease Epidemiology Collaboration (CKD-EPI) equation refit without adjustment for race. BUN/Creatinine Ratio 9.1 LAB CHEMISTRY METHOD 02/16/2025 6:04 AM [facility] Calcium 9.2 8.5 - 10.5 mg/dL LAB CHEMISTRY METHOD 02/16/2025 6:04 AM [facility] Blood Venous blood specimen / Unknown Venipuncture / Unknown 02/16/2025 5:06 AM EDT 02/16/2025 5:31 AM EDT Rustam HARRISON LAB BLOOD ORDERABLES Final Res ult [facility] [address] [place] [address], * Respiratory virus panel molecular study (02/16/2025 3:52 AM EDT) Adenovirus Detection by PCR Not Detected Not Detected LAB MICROBIOLOGY METHOD 02/16/2025 5:08 AM EDT [facility] Influenza A PCR Not Detected Not Detected LAB MICROBIOLOGY METHOD 02/16/2025 5:08 AM EDT [facility] Influenza B PCR Not Detected Not Detected LAB MICROBIOLOGY METHOD 02/16/2025 5:08 AM EDT [facility] Coronavirus 229E Not Detected Not Detected LAB MICROBIOLOGY METHOD 02/16/2025 5:08 AM EDT [facility] Coronavirus HKU1 Not Detected Not Detected LAB MICROBIOLOGY METHOD 02/16/2025 5:08 AM EDT [facility] Coronavirus OC43 Not Detected Not Detected LAB MICROBIOLOGY METHOD 02/16/2025 5:08 AM EDT [facility] Coronavirus NL63 Not Detected Not Detected LAB MICROBIOLOGY METHOD 02/16/2025 5:08 AM EDT [facility] Parainfluenza Virus 1 Not Detected Not Detected LAB MICROBIOLOGY METHOD 02/16/2025 5:08 AM EDT [facility] Parainfluenza Virus 2 Not Detected Not Detected LAB MICROBIOLOGY METHOD 02/16/2025 5:08 AM EDT [facility] Parainfluenza Virus 3 Not Detected Not Detected LAB MICROBIOLOGY METHOD 02/16/2025 5:08 AM EDT [facility] Parainfluenza Virus 4 Not Detected Not Detected LAB MICROBIOLOGY METHOD 02/16/2025 5:08 AM EDT [facility] RSV PCR Not Detected Not Detected LAB MICROBIOLOGY METHOD 02/16/2025 5:08 AM EDT [facility] Human Metapneumovirus A and B Not Detected Not Detected LAB MICROBIOLOGY METHOD 02/16/2025 5:08 AM EDT [facility] Rhinovirus/Entero virus Not Detected Not Detected LAB MICROBIOLOGY METHOD 02/16/2025 5:08 AM EDT [facility] Bordetella pertussis Not Detected Not Detected LAB MICROBIOLOGY METHOD 02/16/2025 5:08 AM EDT [facility] Bordetella parapertussis Not Detected Not Detected LAB MICROBIOLOGY METHOD 02/16/2025 5:08 AM EDT [facility] Mycoplasma pneumo by PCR Not Detected Not Detected LAB MICROBIOLOGY METHOD 02/16/2025 5:08 AM EDT [facility] Chlamydia pneumoniae Not Detected Not Detected LAB MICROBIOLOGY METHOD 02/16/2025 5:08 AM EDT [facility] SARS COV-2 Not Detected Not Detected LAB MICROBIOLOGY METHOD 02/16/2025 5:08 AM EDT [facility] Swab Nasopharyngeal structure / Unknown Non-blood Collection / Unknown 02/16/2025 3:52 AM EDT 02/16/2025 3:52 AM EDT [facility] - 02/16/2025 5:08 AM EDT Testing was performed using the [employer] Respiratory Pathogen PCR Assay. All results must [...] are below the limit of detection. us Rustam HARRISON LAB MICROBIOLOGY - GENERAL ORD ERABLES Final Result [facility] [address] [place] [address], * ECG-Annotated (02/16/2025) us Provider Onbase MD ECG ORDERABLES Final Result * B-type natriuretic peptide (02/15/2025 10:27 PM EDT) [facility] BNP 22 <=100 pcg/mL LAB CHEMISTRY METHOD 02/15/2025 11:18 PM EDT [facility] Blood Venous blood specimen / Unknown Venipuncture / Unknown 02/15/2025 10:27 PM EDT 02/15/2025 10:33 PM EDT Tomer Holland MD LAB BLOOD ORDERABLES Final R esult [facility] [address] [place] [address], [place] [phone] * (ABNORMAL) Comprehensive metabolic panel (02/15/2025 10:27 PM EDT) [facility] Sodium 137 133 - 145 mmol/L LAB CHEMISTRY METHOD 02/15/2025 11:11 PM [facility] Potassium 4.1 3.5 - 5.5 mmol/L LAB CHEMISTRY METHOD 02/15/2025 11:11 PM [facility] Chloride 107 96 - 110 mmol/L LAB CHEMISTRY METHOD 02/15/2025 11:11 PM [facility] CO2 26 21 - 32 mmol/L LAB CHEMISTRY METHOD 02/15/2025 11:11 PM [facility] Anion Gap 4 3 - 11 LAB CHEMISTRY METHOD 02/15/2025 11:11 PM [facility] Glucose 108(H) 70 - 100 mg/dL LAB CHEMISTRY METHOD 02/15/2025 11:11 PM [facility] BUN 10 5 - 25 mg/dL LAB CHEMISTRY METHOD 02/15/2025 11:11 PM [facility] Creatinine 1.04 0.70 - 1.30 mg/dL LAB CHEMISTRY METHOD 02/15/2025 11:11 PM [facility] eGFR 79 >=60 mL/min/1. 73m2 LAB CHEMISTRY METHOD 02/15/2025 11:11 PM [facility] Comment:Calculation based on the Chronic Kidney Disease Epidemiology Collaboration (CKD-EPI) equation refit without adjustment for race. BUN/Creatinine Ratio 9.6 LAB CHEMISTRY METHOD 02/15/2025 11:11 PM [facility] Calcium 9.0 8.5 - 10.5 mg/dL LAB CHEMISTRY METHOD 02/15/2025 11:11 PM [facility] AST (SGOT) 20 10 - 42 unit/L LAB CHEMISTRY METHOD 02/15/2025 11:11 PM [facility] ALT (SGPT) 27 10 - 60 unit/L LAB CHEMISTRY METHOD 02/15/2025 11:11 PM [facility] Alkaline Phosphatase 127(H) 42 - 121 unit/L LAB CHEMISTRY METHOD 02/15/2025 11:11 PM [facility] Total Protein 6.6 6.0 - 8.0 g/dL LAB CHEMISTRY METHOD 02/15/2025 11:11 PM [facility] Albumin 3.8 3.2 - 5.0 g/dL LAB CHEMISTRY METHOD 02/15/2025 11:11 PM [facility] Total Bilirubin 0.7 0.0 - 1.4 mg/dL LAB CHEMISTRY METHOD 02/15/2025 11:11 PM [facility] Blood Venous blood specimen / Unknown Venipuncture / Unknown 02/15/2025 10:27 PM EDT 02/15/2025 10:33 PM EDT us Tomer Holland MD LAB BLOOD ORDERABLES Final R esult [facility] [address] [place] [address], * XR Chest 1 View (02/15/2025 10:20 PM EDT) Anatomical Region Laterality Modality Body Radiographic Isabel ging 02/16/2025 8:4 7 AM EDT Impressions 02/16/2025 8:48 AM EDT No acute findings. -------- FINAL REPORT -------- Dictated By: Raphael Denton Dictated Date: 02/16/2025 08:47 ET Assigned Physician: Raphael Denton Reviewed and Electronically Signed By: Raphael Denton Signed Date: 02/16/2025 08:48 ET Workstation ID: [id number] Transcribed By: Self Edit Transcribed Date: 02/16/2025 [...] Signed Date: 02/16/2025 08:48 ET Workstation ID: [id number] Transcribed By: Self Edit Transcribed Date: 02/16/2025 08:47 ET Tomer Holland MD IMG XR PROCEDURES Final Resu lt * Electrocardiogram, 12 lead (02/15/2025 10:19 PM EDT) Ventricular Rate ECG 88 BPM GEMUSE Atrial Rate 88 BPM GEMUSE P-R Interval 140 ms GEMUSE QRS Duration 146 ms GEMUSE Q-T Interval 390 ms GEMUSE QTc 471 ms GEMUSE P Wave [place] 48 degrees GEMUSE R [place] 86 degrees GEMUSE T [place] 53 degrees GEMUSE ECG Interpretation Normal sinus rhythm Right bundle branch block Abnormal ECG When compared with ECG of 11-DEC-2024 13:47, No significant change was found Confirmed by MD BETHANY, ELLIOTT ([id number]) on 02/16/2025 7:58:16 AM GEMUSE 02/15/2025 10:1 9 PM EDT 02/16/2025 7:58 AM EDT us Tomer Holland MD ECG ORDERABLES Final Result [facility] * [facility] 30-74 MINUTES (02/15/2025 9:22 PM [...] MD IN CLINIC/BEDSIDE ORDERABLES Final Result * CT LUNG SCREENING LOW DOSE (06/29/2023 6:57 AM EST) Anatomical Region Laterality Modality Computed Tomogra phy 06/15/2023 1:42 PM EST Narrative 06/29/2023 6:57 AM EST [facility] Diagnostic Imaging Department [address] [place], [place] [id number] Patient: ANNA JACKSON /Age/Sex: 1960 - 63 - M Unit#: [id number] Location/Status: SPDICATLS/REG CLI Mnemonic/Ordering Site: [facility] Ordering Physician: SHARIF ALY MD CT Lung Screening Low Dose - 06/15/23 - 1351 Report Status:Signed Indication: Greater than 20 total pack-year smoking history, asymptomatic former smoker Technique: Low-dose CT scan of the chest obtained as a lung cancer screening study. Multiplanar reformatted images were obtained. Dose reduction technique: ASIR (Adaptive statistical iterative reconstruction) and/or AEC (automated exposure control) COMPARISON: [id number]. FINDINGS: Lack of intravenous contrast limits evaluation [...] MD Dic Date/Time: 06/29/2346 Sign date/Time: 06/29/2357 Procedure Note Jhonny Patel MD - 08/10/2023 [facility] Diagnostic Imaging Department [address] [place] [id number] Patient: ANNA JACKSON /Age/Sex: 1960 - 63 - M Unit#: [id number] Location/Status: SPDICATLS/REG CLI Mnemonic/Ordering Site: [facility] Ordering Physician: SHARIF ALY MD CT Lung Screening Low Dose - 06/15/23 - 1351 Report Status:Signed Indication: Greater than 20 total pack-year smoking history,asymptomatic former smoker Technique: Low-dose CT scan of the chest obtained as a lung cancerscreening study. Multiplanar reformatted images were obtained. Dose reductiontechnique: ASIR (Adaptive statistical iterative reconstruction) and/or AEC(automated exposure control) COMPARISON: [id number]. FINDINGS: Lack of intravenous contrast limits evaluation [...] Sign date/Time: 06/29/23 0[address]if Aly MD IMG CT PROCEDURES Final Result from Last 3 Months or Most Recently Relevant to Health Maintenance Insurance [employer] MEDICARE ADVANTAGE [place] - [place] Advance Directives Documents on File Type Date Recorded Patient Video Manager Expl anatefra Advance Directives and Living Will 05/20/2024 [...] Health Care Agent Daly Jackson Daughter [facility] Health Care Agent Care Teams Obstetrics And Gynecology Professor Relationship Specialty Start Date End Date Sanju Disla MD [address] [place] [address] [address] [place] PCP - General 05/07/1997
== END 2025-03-19 15:59 | disposition home or self-care (01) ==
PROVIDERS: PCP Internal Medicine; Visit Provider Nurse Practitioner Family
DX: B37.0 Candidal stomatitis (principal)

== ENCOUNTER → 2025-03-19 14:32 | Outpatient (BNVA) | payer MEDICARE, MEDICAID, SELFPAY | PROVIDERS: PCP Internal Medicine; Visit Provider Nurse Practitioner Family | DX: B37.0 Candidal stomatitis (principal) | CPT/HCPCS: 99212 ==

== ENCOUNTER 2025-03-27 15:22 | Outpatient (AMB) | payer MEDICARE, MEDICAID, SELFPAY ==
--- NOTE | 2025-03-27 15:29 | MHC.OFFVIS ---
Intake Visit Reasons: 1yr/US Intake Note: Patient is present for 1 yr follow up Urology Medication:tamsulosin, allopurinol, Potassium Antibiotic Allergy:none Blood Thinner:aspirin Imaging done : Ultrasound 02/28/2025 [employer] Required: No Allergies No Known Allergies Allergy (Verified 03/19/25 14:42) HPI Comments Details: Toby is a pleasant male. He is a patient of Dr. Disla. He seen for the following urologic conditions - inguinal disruption previously - microscopic hematuria - prior negative evaluation with cystoscopy - nephrolithiasis recurrent - lower urinary tract symptoms Twelve month follow-up Has been on allopurinol and potassium citrate Significantly reduced stone burden maintained Does report nocturia x3 with variable stream hesitancy Trial Flomax Nephrolithiasis Recurrent - on topiramate Imaging - 09/25 [facility] left kidney cluster 2.4 cm, right kidney 5 mm in 3 mm - 02/25 renal ultrasound right kidney 3 mm, left kidney 4 mm - 02/26 renal ultrasound bilateral 3 mm stones stable PFSH Medical History Oral thrush Allergic rhinitis Overweight (BMI 25.0-29.9) Constipation Atherosclerotic cardiovascular disease Swelling of left lower extremity Vitamin B12 deficiency GERD without esophagitis Anterior chest wall pain Mixed hyperlipidemia Primary insomnia Urinary frequency Neuropathy Vitamin D deficiency Osteoarthritis Lumbar degenerative disc disease Impaired fasting glucose Benign essential hypertension COPD (chronic obstructive pulmonary disease) Headache Epidermoid cyst Surgical History History of total right knee replacement History of cardiac cath History of colonoscopy Family History Father Colon cancer Mother Medical history unknown Social History Housing: Apartment Alcohol intake: former Patient Tobacco Use Status: Current everyday Tobacco user Tobacco use type: Cigarette Cigarettes Per Day: 15 Years Smoked: 30 +/- e-Cigarette/Vaping Use: Never Used Second Hand Smoke Exposure: Yes service: No Current occupational status: disabled Cognitive needs: No Hearing needs: Yes Vision needs: Yes (reading glasses) Review of Systems Const Denies chills and Denies fever(s) Card Reports no additional complaints and Denies syncope Resp Denies cough GI Denies abdominal pain and Denies heartburn Reports as per HPI and Denies change in libido Neuro Denies syncope Psych Denies change in libido Endo Denies change in libido Physical Exam Const General: cooperative, healthy appearing, comfortable and no acute distress Orientation/consciousness: patient oriented x3 HEENT Face and sinus: Yes normal facial exam Mouth: moist mucous membranes Neck Neck: Yes normal visual inspection, Yes full ROM and Yes trachea midline Chest Chest palpation & inspection: normal inspection of the chest Resp Effort & Inspection: normal respiratory effort, able to speak in complete sentences and no respiratory distress GI Inspection: Yes normal to inspection Back/Spine/Pelvis Cervical Spine: normal cervical lordosis Thoracic/Lumbar Spine: thoracic and lumbar spine normal to inspection Skin General skin exam: no rashes or lesions noted Neuro General: patient oriented x3, gait normal, tone normal and moves all extremities Extrem General: Yes normal to inspection and Yes capillary refill normal Assessment & Plan Assessment & Plan (1) Nephrolithiasis: Code(s): N20.0 - Calculus of kidney Category: Medical (2) BPH loc w urin obs/LUTS: Code(s): N40.1 - Benign prostatic hyperplasia with lower urinary tract symptoms Category: Medical Plan Continue combination allopurinol and potassium citrate for stone recurrence Trial Flomax three-month tele visit Orders: Orders US bladder 3 Months N40.1 - Benign prostatic hyperplasia with lower urinary tract symptoms Medications: Changed From tamsulosin 0.4 mg PO BEDTIME 14 days 14 caps 0RF To tamsulosin 0.4 mg PO BEDTIME 90 caps 0RF prostate 90 days Patient Instructions: This note is constructed using voice recognition software. While every effort has been made to ensure accuracy senior account representative errors may have been included. Imaging studies, laboratory and physical exam results were discussed and reviewed in detail. No major barriers to patient understanding were identified. An opportunity to ask questions regarding the treatment plan was provided. All questions were answered. The patient expressed understanding and agreement with the above treatment plan. The patient is aware they should contact our office by phone for worsening of their current condition or the appearance of new urologic symptoms. Compliance is encouraged with any medications and followup testing that is ordered. It is a privilege to participate in the urologic care of your patient. If you have any questions or concerns regarding treatment for the above conditions, or other urologic issues, please do not hesitate to contact me. The office telephone contact is [phone]. Sincerely, Dr Francisco Pizano MD, [facility] - Urology Compassionate Specialist Care for the Genitourinary System Coding Level of Care Code Est Pt Level 4 (33903) Complex EM visit Add On G2211 Diagnoses Nephrolithiasis N20.0 BPH loc w urin obs/LUTS N40.1
--- OUTSIDE RECORDS SUMMARY | 2025-03-27 18:17 | XMS_ITS | Clinical Summary ---
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 1 each 025 2024 Discontinued predniSONE (DELTASONE) 20 mg tablet Take 2 tablets (40 mg total) by mouth 1 (one) time each day for 5 days. See instructions. 10 tablet 025 2024 doxycycline (MONODOX) 100 mg capsule Take 1 capsule (100 mg total) by mouth 2 (two) times a day for 5 days. Take with at least 8 ounces (large glass) of water, do not lie down for 30 minutes after. Administer 2 hours before or after multivitamins, antacids, or other products containing polyvalent cations (i.e., calcium, iron, magnesium, selenium, zinc). 10 each 025 2024 Active Problems Problem Noted Date Diagnosed Date SOB (shortness of breath) 02/16/2025 Coronary artery disease invo lving oneida coronary artery of oneida heart without angina pectoris 07/11/2024 Assessment & [...] Acute on chronic hypoxic res piratory failure ([facility] V24[facility] V28) 05/15/2024 COPD exacerbation ([facility] V24, [facility] V28) 04/2024 Inclusion cyst 05/08/2019 Lymphadenopathy 11/18/2017 [...] 08/10/2017 Chronic obstructive pulmonar y disease (COPD) ([facility] V24, [facility] V28) 02/11/2017 Resolved Problems Problem Noted Date Diagnosed Date Resolved Date Chest pain 07/03/2024 07/11/2024 Encounters Date Type Department Care Team Description 03/20/2025 12:14 PM EDT - 03/20/2025 4:24 PM EDT Emergency [facility] [address] [place] [phone] COPD exacerbation ([facility] V24, [facility] V28) (Primary Dx) Discharge Disposition: Home or Self Care 03/20/2025 Telephone Pulmonology - [place] [address] [facility] [address] [place] [phone] Jayshree Gibbs MD 03/07/2025 2:45 PM EDT Office Visit Pulmonology - [place] [address] [facility] [address] [place] [phone] Jayshree Gibbs MD Acute on chronic hypoxic respiratory failure ([facility] V24, [facility] V28) (Primary Dx); Supplemental oxygen dependent; Pulmonary emphysema, unspecified emphysema type ([facility] [place], [facility] V28) 02/15/2025 9:32 PM EDT - 02/16/2025 2:46 PM EDT Hospital Encounter [facility] [address] [place] [address] Tomer Holland MD Ishtiaq, Rizwan, MD Bell, Alistair A, MD COPD exacerbation ([facility] [place], [facility] V28) (Primary Dx); Acute on chronic respiratory failure with hypoxia ([facility] [place], [facility] V28) Discharge Disposition: Home or Self Care 12/25/2024 Telephone [facility] [address] [place] [address] Silver Valente MD from Last 3 Months Immunizations Name Administration Dates Next Due Influenza Quadravalent, MDCK , 0.5ml, preservative free (Flucelvax) 6mo and older 04/28/2022 Surgical History Surgery Date Site/Laterality Comments KNEE SURGERY PROCEDURE: HISTORICAL KNEE SURGERY DENTAL SURGERY PROCEDURE: ND UNLISTED PROCEDURE DENTOALVEOLAR STRUCTURES Medical History Medical History Date Comments Arthritis DX:Arthritis Cholelithiasis 08/10/2017 DX:Cholelithiasi s Diverticulosis 08/10/2017 DX:Diverticulosi s Hyperlipidemia 08/10/2017 DX:Hyperlipidemi a Tobacco use 02/11/2017 DX:Tobacco use Chronic obstructive pulmonar y disease (COPD) ([facility] [place], [facility] V28) 02/11/2017 DX:Chronic obstructi ve pulmonary disease (COPD) ([facility]) Supplemental oxygen dependent 08/10/2017 DX :Supplemental oxygen [...] Sign Reading Time Taken Comments Blood Pressure 144/70 03/20/2025 3:08 PM EDT Pulse 102 03/20/2025 3:08 PM EDT Temperature 36.6 C (97.8 F) 03/20/2025 3:08 PM EDT Respiratory Rate 22 03/20/2025 3:08 PM EDT Oxygen Saturation 92% 03/20/2025 3:08 PM EDT Inhaled Oxygen Concentration - - Weight 96.6 kg (213 lb) 03/20/2025 12:11 PM EDT Height 182.9 cm (6') 03/20/2025 12:11 PM EDT Body Mass Index 28.89 03/20/2025 12:11 PM EDT Plan of Treatment Upcoming Encounters Date Type Department Care Team (Late st Contact Info) Description 04/05/2025 11:15 AM EDT Office Visit Pulmonology [facility] [address] [phone] Jayshree Gibbs MD [address] [address] 05/09/2025 1:30 PM EST [facility] [address] [phone] Jayshree Gibbs MD [address] [place] [address] [address] [place] [address] Health Maintenance Due Date Last Done Comments [...] 08/07/2024 Diabetes: Annual GFR (Glomerular Filtration Rate) 03/20/2026 03/20/2025, 02/16/2025, 02/15/2025, Additional history exists Hypertension/CHF/CAD Annual BMP Blood Test 03/20/2026 03/20/2025, 02/16/2025, 02/15/2025, Additional history exists DTaP,Tdap,and Td Vaccines (2 [...] Priority Date/Time Associated Diagnosis Comments ECG ANNOTATED 03/21/2025 XR CHEST 2 VIEWS STAT 03/20/2025 2:30 PM EDT TROPONIN I HIGH SENSITIVITY Timed 03/20/2025 1:23 PM EDT RESPIRATORY VIRUS PANEL MOLECULAR STUDY STAT 03/20/2025 12:26 PM EDT MAGNESIUM Add-On 03/20/2025 12:24 PM EDT CBC WITH AUTO DIFFERENTIAL STAT 03/20/2025 12:24 PM EDT TROPONIN I HIGH SENSITIVITY Timed 03/20/2025 12:24 PM EDT B-TYPE NATRIURETIC PEPTIDE STAT 03/20/2025 12:24 PM EDT BASIC METABOLIC PANEL STAT 03/20/2025 12:24 PM EDT CBC AND DIFFERENTIAL STAT 03/20/2025 12:24 PM EDT ECG 12-LEAD STAT 03/20/2025 12:21 PM EDT CBC WITH AUTO DIFFERENTIAL Routine 02/16/2025 5:06 [...] ECG 12-LEAD STAT 02/15/2025 10:19 PM EDT ND CRITICAL CARE 30-74 MINUTES Routine 02/15/2025 9:[address] LUNG SCREENING LOW DOSE Routine 06/29/2023 6:57 AM EST Encounter for screening for malignant neoplasm of respiratory organs from Last 3 Months or Most Recently Relevant to Health Maintenance Results * ECG-Annotated (03/21/2025) Only the most recent of2 resultswithin the time period is included. us Provider Onbase MD ECG ORDERABLES Final Result * XR Chest 2 Views (03/20/2025 2:30 PM EDT) Anatomical Region Laterality Modality Body Radiographic Isabel ging 03/20/2025 2:51 PM EDT Impressions 03/20/2025 2:52 PM EDT FINDINGS/IMPRESSION: Stable findings of emphysema with hyperinflation suggesting chronic obstructive pulmonary disease. No pleural effusion or pneumothorax. No pneumonia or pulmonary edema. Cardiac silhouette is normal in size. Degenerative changes seen throughout the bones. Old healed left rib fracture deformities are unchanged. No acute fracture. -------- FINAL REPORT -------- Dictated By: KADEN SAWYER Dictated Date: 03/20/2025 14:51 ET Assigned Physician: KADEN SAWYER Reviewed and Electronically Signed By: KADEN SAWYER Signed Date: 03/20/2025 14:52 ET Workstation ID: [id number] Transcribed By: Self Edit Transcribed Date: 03/20/2025 14:51 ET Narrative 03/20/2025 2:52 PM EDT XR CHEST 2 VIEWS INDICATION: Pain TECHNIQUE: XR CHEST 2 VIEWS COMPARISON: 02/15/2025 Procedure Note Kaden Sawyer MD - 03/20/2025 XR CHEST 2 VIEWS INDICATION: Pain TECHNIQUE: XR CHEST 2 VIEWS COMPARISON: 02/15/2025 IMPRESSION: FINDINGS/IMPRESSION: Stable findings of emphysema with hyperinflationsuggesting chronic obstructive pulmonary disease. No pleural effusion orpneumothorax. No pneumonia or pulmonary edema. Cardiac silhouette isnormal in size. Degenerative changes seen throughout the bones. Oldhealed left rib fracture deformities are unchanged. No acute fracture. -------- FINAL REPORT -------- Dictated By: KADEN SAWYER Dictated Date: 03/20/2025 14:51 ET Assigned Physician: KADEN SAWYER Reviewed and Electronically Signed By: KADEN SAWYER Signed Date: 03/20/2025 14:52 ET Workstation ID: [id number] Transcribed By: Self Edit Transcribed Date: 03/20/2025 14:51 ET Elana HARRISON IMG XR PROCEDURES Final Result * Troponin I high sensitivity (03/20/2025 1:23 PM EDT) Only the most recent of2 resultswithin the time period is included. High Sensitivity Troponin I 7 <=79 ng/L LAB CHEMISTRY METHOD 03/20/2025 2:19 PM EDT [facility] Blood Venous blood specimen / Unknown Venipuncture / Unknown 03/20/2025 1:23 PM EDT 03/20/2025 2:19 PM EDT Narrative [facility] - 03/20/2025 2:19 PM EDT High levels of biotin in samples may falsely decrease hsTroponin values. Use caution when interpreting hsTroponin results in patients taking biotin who exhibit renal impairment (eGFR <60) or in patients taking more than 20 mg/day of biotin. us Rashida Rangel MD LAB BLOOD ORDERABLES Final Resul t [facility] [address] [place] [address], * Respiratory virus panel molecular study (03/20/2025 12:26 PM EDT) Only the most recent of2 resultswithin the time period is included. Pathologist [facility] Adenovirus Detection by PCR Not Detected Not Detected LAB MICROBIOLOGY METHOD 03/20/2025 2:27 PM EDT [facility] Influenza A PCR Not Detected Not Detected LAB MICROBIOLOGY METHOD 03/20/2025 2:27 PM EDT [facility] Influenza B PCR Not Detected Not Detected LAB MICROBIOLOGY METHOD 03/20/2025 2:27 PM EDT [facility] Coronavirus 229E Not Detected Not Detected LAB MICROBIOLOGY METHOD 03/20/2025 2:27 PM EDT [facility] Coronavirus HKU1 Not Detected Not Detected LAB MICROBIOLOGY METHOD 03/20/2025 2:27 PM EDT [facility] Coronavirus OC43 Not Detected Not Detected LAB MICROBIOLOGY METHOD 03/20/2025 2:27 PM EDT [facility] Coronavirus NL63 Not Detected Not Detected LAB MICROBIOLOGY METHOD 03/20/2025 2:27 PM EDT [facility] Parainfluenza Virus 1 Not Detected Not Detected LAB MICROBIOLOGY METHOD 03/20/2025 2:27 PM EDT [facility] Parainfluenza Virus 2 Not Detected Not Detected LAB MICROBIOLOGY METHOD 03/20/2025 2:27 PM EDT [facility] Parainfluenza Virus 3 Not Detected Not Detected LAB MICROBIOLOGY METHOD 03/20/2025 2:27 PM EDT [facility] Parainfluenza Virus 4 Not Detected Not Detected LAB MICROBIOLOGY METHOD 03/20/2025 2:27 PM EDT [facility] RSV PCR Not Detected Not Detected LAB MICROBIOLOGY METHOD 03/20/2025 2:27 PM EDT [facility] Human Metapneumovirus A and B Not Detected Not Detected LAB MICROBIOLOGY METHOD 03/20/2025 2:27 PM EDT [facility] Rhinovirus/Entero virus Not Detected Not Detected LAB MICROBIOLOGY METHOD 03/20/2025 2:27 PM EDT [facility] Bordetella pertussis Not Detected Not Detected LAB MICROBIOLOGY METHOD 03/20/2025 2:27 PM EDT [facility] Bordetella parapertussis Not Detected Not Detected LAB MICROBIOLOGY METHOD 03/20/2025 2:27 PM EDT [facility] Mycoplasma pneumo by PCR Not Detected Not Detected LAB MICROBIOLOGY METHOD 03/20/2025 2:27 PM EDT [facility] Chlamydia pneumoniae Not Detected Not Detected LAB MICROBIOLOGY METHOD 03/20/2025 2:27 PM EDT [facility] SARS COV-2 Not Detected Not Detected LAB MICROBIOLOGY METHOD 03/20/2025 2:27 PM EDT [facility] Swab Both anterior nares / Unknown Non-blood Collection / Unknown 03/20/2025 12:26 PM EDT 03/20/2025 1:25 PM EDT [facility] - 03/20/2025 2:27 PM EDT Testing was performed using the OrbFlex Respiratory Pathogen PCR Assay. All results must [...] that are below the limit of detection. Rashida Rangel MD LAB MICROBIOLOGY - GENERAL ORDER TAYLOR Final Result [facility] [address] [place] [address], * (ABNORMAL) CBC auto differential (03/20/2025 12:24 PM EDT) Only the most recent of3 resultswithin the time period is included. WBC 7.6 4.8 - 10.8 K/mcL LAB HEMETOLOGY METHOD 03/20/2025 1:38 PM EDT [facility] RBC 5.40 4.50 - 5.50 M/mcL LAB HEMETOLOGY METHOD 03/20/2025 1:38 PM EDT [facility] Hemoglobin 16.4 13.5 - 17.5 g/dL LAB HEMETOLOGY METHOD 03/20/2025 1:38 PM EDT [facility] Hematocrit 47.1 42.0 - 54.0 % LAB HEMETOLOGY METHOD 03/20/2025 1:38 PM EDT [facility] MCV 87.2 79.0 - 98.0 FL LAB HEMETOLOGY METHOD 03/20/2025 1:38 PM EDT [facility] MCH 30.4 27.0 - 32.0 pcg LAB HEMETOLOGY METHOD 03/20/2025 1:38 PM EDT [facility] MCHC 34.8 32.0 - 37.0 g/dL LAB HEMETOLOGY METHOD 03/20/2025 1:38 PM EDT [facility] RDW 11.9 11.0 - 15.0 % LAB HEMETOLOGY METHOD 03/20/2025 1:38 PM EDT [facility] Platelets 314 130 - 400 K/mcL LAB HEMETOLOGY METHOD 03/20/2025 1:38 PM EDT [facility] MPV 9.2 7.0 - 11.0 FL LAB [facility]EMETOLOGY [facility]/20[facility]25 [facility] NRBC 0.0 <1.0 % LAB HEMETOLOGY METHOD 03/20[facility]2025 1:[facility] NRBC Absolute 0.00 <0.10 K/mcL LAB HEMETOLOGY METHOD 03/20/2025 1:38 PM [facility] Neutrophils Relative 91.7 % LAB HEMETOLOGY METHOD 03/20/2025 1:38 PM [facility] Lymphocytes Relative 6.3 % LAB HEMETOLOGY METHOD 03/20/2025 1:38 PM [facility] Monocytes Relative 1.3 % LAB HEMETOLOGY METHOD 03/20/2025 1:38 PM [facility] Eosinophils Relative 0.0 % LAB HEMETOLOGY METHOD 03/20/2025 1:38 PM [facility] Basophils Relative 0.3 % LAB HEMETOLOGY METHOD 03/20/2025 1:38 PM [facility] Immature Granulocytes Relative 0.4 % LAB HEMETOLOGY METHOD 03/20[facility]2025 [facility] Neutrophils Absolute 6.99 1.50 - 7.00 K/mcL LAB HEMETOLOGY METHOD 03/20/2025 1:[facility] Lymphocytes Absolute 0.48(L) 1.00 - 5.00 K/mcL LAB HEMETOLOGY METHOD 03/20/2025 1:[facility] Monocytes Absolute 0.10(L) 0.20 - 1.00 K/mcL LAB HEMETOLOGY METHOD 03/20/2025 1:38 PM EDT [facility] Eosinophils Absolute 0.00 0.00 - 0.50 K/mcL LAB HEMETOLOGY METHOD 03/20/2025 1:38 PM EDT [facility] Basophils Absolute 0.02 0.00 - 0.20 K/mcL LAB HEMETOLOGY METHOD 03/20/2025 1:38 PM EDT [facility] Immature Granulocytes Absolute 0.03 0.00 - 0.03 K/mcL LAB HEMETOLOGY METHOD 03/20/2025 1:38 PM EDT [facility] Blood Venous blood specimen / Unknown Venipuncture / Unknown 03/20/2025 12:24 PM EDT 03/20/2025 1:24 PM EDT us Rashida Rangel MD LAB BLOOD ORDERABLES Final Resul t Performing Organization Address City/[facility]/ZIP Co de Phone Number [facility] [address] [place] [address], [place] [phone] * B-type natriuretic peptide (03/20/2025 12:24 PM EDT) Only the most recent of2 resultswithin the time period is included. BNP 75 <=100 pcg/mL LAB CHEMISTRY METHOD 03/20/2025 2:02 PM EDT [facility] Blood Venous blood specimen / Unknown Venipuncture / Unknown 03/20/2025 12:24 PM EDT 03/20/2025 1:25 PM EDT us Rashida Rangel MD LAB BLOOD ORDERABLES Final Resul t [facility] [address] [place] [address], [place] [phone] * Magnesium (03/20/2025 12:24 PM EDT) Magnesium 2.2 1.9 - 2.6 mg/dL LAB CHEMISTRY METHOD 03/20/2025 1:53 PM EDT [facility] Blood Venous blood specimen / Unknown Venipuncture / Unknown 03/20/2025 12:24 PM EDT 03/20/2025 1:25 PM EDT us Elana HARRISON LAB BLOOD ORDERABLES Fin al Result [facility] [address] [place] [address], [place] [phone] * (ABNORMAL) Basic metabolic panel (03/20/2025 12:24 PM EDT) Only the most recent of2 resultswithin the time period is included. Sodium 135 133 - 145 mmol/L LAB CHEMISTRY METHOD 03/20/2025 1:53 PM [facility] Potassium 4.5 3.5 - 5.5 mmol/L LAB CHEMISTRY METHOD 03/20/2025 1:53 PM [facility] Chloride 104 96 - 110 mmol/L LAB CHEMISTRY METHOD 03/20/2025 1:53 PM T [facility] CO2 24 21 - 32 mmol/L LAB CHEMISTRY METHOD 03/20/2025 1:53 PM [facility] Anion Gap 7 3 - 11 LAB CHEMISTRY METHOD 03/20/2025 1:53 PM [facility] Glucose 135(H) 70 - 100 mg/dL LAB CHEMISTRY METHOD 03/20/2025 1:53 PM [facility] BUN 11 5 - 25 mg/dL LAB CHEMISTRY METHOD 03/20/2025 1:53 PM [facility] Creatinine 1.17 0.70 - 1.30 mg/dL LAB CHEMISTRY METHOD 03/20/2025 1:53 PM [facility] eGFR 68 >=60 mL/min/1. 73m2 LAB CHEMISTRY METHOD 03/20/2025 1:53 PM EDT [facility] Comment:Calculation based on the Chronic Kidney Disease Epidemiology Collaboration (CKD-EPI) equation refit without adjustment for race. BUN/Creatinine Ratio 9.4 LAB CHEMISTRY METHOD 03/20/2025 1:53 PM EDT [facility] Calcium 9.5 8.5 - 10.5 mg/dL LAB CHEMISTRY METHOD 03/20/2025 1:53 PM EDT [facility] Blood Venous blood specimen / Unknown Venipuncture / Unknown 03/20/2025 12:24 PM EDT 03/20/2025 1:25 PM EDT us Rashida Rangel MD LAB BLOOD ORDERABLES Final Resul t [facility] [address] [place] [address], [place] [phone] * ECG 12 lead (03/20/2025 12:21 PM EDT) Only the most recent of2 resultswithin the time period is included. Ventricular Rate ECG 102 BPM GEMUSE Atrial Rate 102 BPM GEMUSE P-R Interval 132 ms GEMUSE QRS Duration 130 ms GEMUSE Q-T Interval 364 ms GEMUSE QTc 474 ms GEMUSE P Wave [place] 73 degrees GEMUSE R [place] 95 degrees GEMUSE T [place] 58 degrees GEMUSE ECG Interpretation Sinus tachycardia with Premature supraventricular complexes Right bundle branch block Abnormal ECG When compared with ECG of 15-FEB-2025 22:19, Premature supraventricular complexes are now Present Confirmed by SILVER VALENTE ([id number]) on 03/21/2025 2:01:23 PM GEMUSE 03/20/2025 12:2 1 PM EDT 03/21/2025 2:01 PM EDT us Rashida Rangel MD ECG ORDERABLES Final Result GEMUSE * (ABNORMAL) Comprehensive metabolic panel (02/15/2025 10:27 PM EDT) Sodium 137 133 - 145 mmol/L LAB CHEMISTRY METHOD 02/15/2025 11:11 PM [facility] Potassium 4.1 3.5 - 5.5 mmol/L LAB CHEMISTRY METHOD 02/15/2025 11:11 PM [facility] Chloride 107 96 - 110 mmol/L LAB CHEMISTRY METHOD 02/15/2025 11:11 PM [facility] CO2 26 21 - 32 mmol/L LAB CHEMISTRY METHOD 02/15/2025 11:11 PM [facility] Anion Gap 4 3 - 11 LAB CHEMISTRY METHOD 02/15/2025 11:11 PM [facility] Glucose 108(H) 70 - 100 mg/dL LAB CHEMISTRY METHOD 02/15/2025 11:11 PM [facility] BUN 10 5 - 25 mg/dL LAB CHEMISTRY METHOD 02/15/2025 11:11 PM [facility] Creatinine 1.04 0.70 - 1.30 mg/dL LAB CHEMISTRY METHOD 02/15/2025 11:11 PM [facility] eGFR 79 >=60 mL/min/1. 73m2 LAB CHEMISTRY METHOD 02/15/2025 11:11 PM [facility] Comment:Calculation based on the Chronic Kidney Disease Epidemiology Collaboration (CKD-EPI) equation refit without adjustment for race. BUN/Creatinine Ratio 9.6 LAB CHEMISTRY METHOD 02/15/2025 11:11 PM [facility] Calcium 9.0 8.5 - 10.5 mg/dL LAB CHEMISTRY METHOD 02/15/2025 11:11 PM [facility] AST (SGOT) 20 10 - 42 unit/L LAB CHEMISTRY METHOD 02/15/2025 11:11 PM [facility] ALT (SGPT) 27 10 - 60 unit/L LAB CHEMISTRY METHOD 02/15/2025 11:11 PM EDT [facility] Alkaline Phosphatase 127(H) 42 - 121 unit/L LAB CHEMISTRY METHOD 02/15/2025 11:11 PM EDT [facility] Total Protein 6.6 6.0 - 8.0 g/dL LAB CHEMISTRY METHOD 02/15/2025 11:11 PM EDT [facility] Albumin 3.8 3.2 - 5.0 g/dL LAB CHEMISTRY METHOD 02/15/2025 11:11 PM EDT [facility] Total Bilirubin 0.7 0.0 - 1.4 mg/dL LAB CHEMISTRY METHOD 02/15/2025 11:11 PM EDT [facility] Blood Venous blood specimen / Unknown Venipuncture / Unknown 02/15/2025 10:27 PM EDT 02/15/2025 10:33 PM EDT us Tomer Holland MD LAB BLOOD ORDERABLES Final R esult [facility] [address] [place] [address], [place] [phone] * XR Chest 1 View (02/15/2025 10:20 PM EDT) Anatomical Region Laterality Modality Body Radiographic Isabel ging 02/16/2025 8:47 AM EDT Impressions 02/16/2025 8:48 AM EDT No acute findings. -------- FINAL REPORT -------- Dictated By: Raphael Denton Dictated Date: 02/16/2025 08:47 ET Assigned Physician: Raphael Denton Reviewed and Electronically Signed By: Raphael Denton Signed Date: 02/16/2025 08:48 ET Workstation ID: [id number] Transcribed By: Self Edit Transcribed Date: 02/16/2025 [...] Signed Date: 02/16/2025 08:48 ET Workstation ID: [id number] Transcribed By: Self Edit Transcribed Date: 02/16/2025 08:47 ET us Tomer Holland MD IMG XR PROCEDURES Final Resu lt * ND CRITICAL CARE 30-74 MINUTES (02/15/2025 9:22 PM EDT) Tomer Falk MD - 02/15/2025 9:22 PM EDT Tomer [...] PM EST Narrative 06/29/2023 6:57 AM EST [facility] Diagnostic Imaging Department [address] [place] [address] Patient: ANNA JACKSON Jennifer /Age/Sex: 1960 - 63 - M Unit#: [id number] Location/Status: [facility] Mnemonic[facility]ing [facility] Order[facility] Physician: SHARIF MARCUM MD CT Lung Screening Low Dose - 06/15/23 - [id number] Report Status:Signed Indication: Greater than 20 total pack-year smoking history, asymptomatic former smoker Technique: Low-dose CT scan of the chest obtained as a lung cancer screening study. Multiplanar reformatted images were obtained. Dose reduction technique: ASIR (Adaptive statistical iterative reconstruction) and/or AEC (automated exposure control) COMPARISON: [id number]. FINDINGS: Lack of intravenous contrast limits evaluation [...] Procedure Note Jhonny Patel MD - 08/10/2023 [facility] Diagnostic Imaging Department [address] [place] [id number] Patient: ANNA JACKSON Jennifer /Age/Sex: 1960 - 63 - M Unit#: [id number] Location/Status: [facility]/REG CLI Mnemonic/Ordering Site: [facility] Ordering Physician: SHARIF MARCUM MD CT Lung Screening Low Dose - 06/15/23 - 1351 Report Status:Signed Indication: Greater than 20 total pack-year smoking history,asymptomatic former smoker Technique: Low-dose CT scan of the chest obtained as a lung cancerscreening study. Multiplanar reformatted images were obtained. Dose reductiontechnique: ASIR (Adaptive statistical iterative reconstruction) and/or AEC(automated exposure control) COMPARISON: [id number]. 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
--- OUTSIDE RECORDS SUMMARY | 2025-03-27 18:17 | XMS_ITS | Patient Health Record ---
Author Organization [facility] Address [address] [place] [address] Care Team Providers Care Business Support Assistant Name Role Phone Naif RUCKER, [place] Primary Care Provider Rustam Vega Jr Unavailable [...] Status Risk Notes Problem Colon cancer screening (643228423) Colon cancer screening (V76.51) Active confirmed Plan Of Treatment Future Test Test Name Order Date COLONOSCOPY 08/30/2013 Insurance Providers Payer Name Payer Address Payer Phone Subscriber Number Group Number Insured Name Patient Relationship to Insured Coverage Start Date Coverage End Date [employer]/ 21-64 Yrs [address] [address] [place] [address] [id number] ANNA MCKEON Self - patient is the insured Medicare of [facility] [address] [place] [address] [id number] ANNA MCKEON Self - patient is the insured MEDICAID OF [facility] [address] [place] [address] [id number] ANNA MCKEON Self - patient is the insured Medical (General) History Medical History History ICD Code colonoscopy 11-07-2008 colon polyps asthma bronchitis elevated cholesterol hypertension Surgical History Surgery Date(Month/Year) knee arthroscopy
== END 2025-03-27 15:59 | disposition home or self-care (01) ==
LOC: HO.HUSH 15:23
PROVIDERS: PCP Internal Medicine; Visit Provider Urology
DX: N20.0 Calculus of kidney (principal); N40.1 Benign prostatic hyperplasia with lower urinary tract symptoms
CPT/HCPCS: 99214; G2211

== ENCOUNTER → 2025-03-27 15:22 | Outpatient (BNVA) | payer MEDICARE, MEDICAID, SELFPAY | PROVIDERS: PCP Internal Medicine; Visit Provider Urology | DX: N20.0 Calculus of kidney (principal); N40.1 Benign prostatic hyperplasia with lower urinary tract symptoms; Z79.82 Long term (current) use of aspirin; R31.29 Other microscopic hematuria | CPT/HCPCS: 99212 ==

== ENCOUNTER 2025-04-02 12:56 | Outpatient (AMB) | payer MEDICARE, MEDICAID, SELFPAY ==
--- NOTE | 2025-04-02 13:09 | A.OFFPC_ITS ---
Vital Signs 04/02/25 13:12 Height 6 ft Weight 215 lb BMI 29.2 BP 122/68 Blood Pressure Location Lt brachial Position Sitting Pulse 96 Pulse Source Pulse Oximeter Pulse Oximetry (%) 96 Oxygen Delivery Method Room Air Intake Visit Reasons: f/u up headaches Ham Pumper Required: No Accompanied by: Self / Same As Patient Allergies tamsulosin Adverse Reaction (Intermediate, Verified 04/02/25 13:50) dizziness, headaches Medication List - Last Reconciled 04/09/25 by Sanju Disla MD albuterol sulfate 90 mcg/actuation (Ventolin HFA) 2 puffs inhalation Q6H PRN albuterol sulfate 2.5 mg (3 mL) continuous nebulization QID PRN alfuzosin ER 10 mg PO DAILY allopurinol 100 mg PO DAILY 90 days amlodipine 5 mg PO DAILY aspirin 81 mg PO DAILY atorvastatin 80 mg PO DAILY bisacodyl (Gentle Laxative (bisacodyl)) 10 mg (2 x 5 mg) PO BEDTIME cholecalciferol (vitamin D3) (Vitamin D3) 25 mcg PO DAILY cyanocobalamin (vitamin B-12) 1,000 mcg PO DAILY docusate sodium 100 mg PO BEDTIME fluconazole 150 mg PO QWEEK 4 weeks omkibhtyodf-knlimveby-ngdueyuq 200-62.5-25 mcg (Trelegy Ellipta) 1 ea inhalation DAILY isosorbide mononitrate ER 30 mg PO DAILY losartan 100 mg PO DAILY nitroglycerin 0.4 mg sublingual Q5M nystatin 500,000 units (5 mL) mucous membrane TID 10 days pantoprazole 40 mg PO DAILY polyethylene glycol 3350 (Miralax) 17 grams PO DAILY potassium citrate ER 20 mEq (2 x 10 mEq (1,080 mg)) PO BID 90 days roflumilast (Daliresp) 500 mcg PO DAILY Tobacco use date assessed: 04/02/25 Fall risk assessment: No Falls in past year Last assessed Fall Risk: 04/02/25 Dental Screening Dental Screen Date: 04/02/25 Did you have a dental visit in the last 12 months?: Yes Did you have a dental problem in the last 6 months where you did not have access to dental care?: No Was dental information given to patient?: Patient has dentist HPI f/u up headaches HPI Details Patient comes in today for his [facility] follow-up visit He was again seen ER [facility] a couple of weeks ago for an apparent COPD exacerbation States that he currently feels okay and that his respiratory symptoms have mostly cleared up by now He denies any headaches or dizziness Denies any chest pains, no increased shortness of breath No nausea/vomiting, no abdominal pain No change in bowel habits noted [facility] Medical History Oral thrush Allergic rhinitis Overweight (BMI 25.0-29.9) Constipation Atherosclerotic cardiovascular disease Swelling of left lower extremity Vitamin B12 deficiency GERD without esophagitis Anterior chest wall pain Mixed hyperlipidemia Primary insomnia Urinary frequency Neuropathy Vitamin D deficiency Osteoarthritis Lumbar degenerative disc disease Impaired fasting glucose Benign essential hypertension COPD (chronic obstructive pulmonary disease) Headache Epidermoid cyst Surgical History History of total right knee replacement History of cardiac cath History of colonoscopy Family History Father Colon cancer Mother Medical history unknown Social History Housing: Apartment Alcohol intake: former Patient Tobacco Use Status: Current everyday Tobacco user Tobacco use type: Cigarette Cigarettes Per Day: 15 Years Smoked: 30 +/- Packs per year/per ci.00 e-Cigarette/Vaping Use: Never Used Second Hand Smoke Exposure: Yes service: No Current occupational status: disabled Cognitive needs: No Hearing needs: Yes Vision needs: Yes (reading glasses) Questionnaire PHQ-9 Over the last 2 weeks, how often have you been bothered by any of the following problems? Depression Screening Interpretation: Negative Depression Screening Done: Yes Source: Developed by Drs. Ronald Vieira, Yomaira Craig, Sesar Stahl and colleagues, with an educational estelle from [employer]. Thrive Questionnaire Date Thrive assessed: 01/11/25 I am a: Patient What is your living situation today?: I have a steady place to live Within the past 12 months, did the food you bought not last and you didn't have the money to get more?: Often true Within the past 12 months, did you worry whether your food would run out before you got money to buy more?: Never true Do you have trouble paying for medicines?: No Do you have trouble getting transportation to medical appointments?: No Do you have trouble paying your heating and electricity bill?: No Do you have trouble taking care of your child, family member or friend?: No Do you have trouble with day-to-day activities such as bathing, preparing meals, shopping, managing finances, etc.?: No Are you currently unemployed and looking for a job?: No Are you interested in more education?: No Please select the resources that you would like help with: None Currently or been in a relationship where the following occur: I choose not to answer THRIVE Score: 1 AUDIT C Alcohol Use Questionnaire (AUDIT-C) 1. How often do you have a drink containing alcohol?: Never 3. How often do you have six or more drinks on one occasion?: Never Total Score: 0 Score Reviewed/Action Taken: Yes SUSIE-7 AMB Questionnaire SUSIE-7 Date SUSIE - 7 assessed: 01/11/25 Source: Developed by Drs. Ronald Vieira, Yomaira Craig, Sesar Stahl and colleagues, with an educational estelle from [employer]. Review of Systems Const Denies chills, Denies fatigue, Denies fever(s) and Denies headache(s) ENT Denies dysphagia, Denies dizziness, Denies otalgia, Denies headache(s), Denies neck pain, Denies odynophagia and Denies sore throat Card Denies chest pain, Denies palpitations and Reports dyspnea on exertion (mild) Resp Reports chest congestion (at times), Reports cough (occasional; coughs up thick whitish phlegm at times), Reports dyspnea on exertion (mild) and Denies wheezing GI Denies abdominal pain, Denies constipation, Denies dysphagia, Denies heartburn, Denies diarrhea, Denies nausea, Denies odynophagia and Denies vomiting Denies hematuria, Denies difficulty urinating, Denies dysuria, Denies nocturia and Denies urinary frequency Musc Reports back pain (over the lower back - chronic) and Denies neck pain Skin/Breast Denies rash Neuro Denies dizziness and Denies headache(s) Endo Denies fatigue and Denies palpitations Glynn/Lymph Details: recurrent swelling of his left foot and ankle Aller/Immun Reports seasonal rhinorrhea and Denies wheezing Physical exam (Primary Care) Vital Signs: Last Vital Signs Pulse 96 04/02/25 13:12 BP 122/68 04/02/25 13:12 Pulse Ox 96 04/02/25 13:12 Oxygen Delivery Method Room Air 04/02/25 13:12 BMI result Body Mass Index 29.2 Tobacco/Smoking Status: Tobacco use Status Tobacco use date assessed 04/02/25 04/02/25 13:16 Patient Tobacco Use Status Current everyday Tobacco 04/02/25 13:11 Tobacco use type Cigarette 04/02/25 13:11 e-Cigarette/Vaping Use Never Used 04/02/25 13:11 Depression Screening Interpretation: Negative Thrive Assessment: Date of Thrive Assessment Date Thrive assessed 01/11/25 04/02/25 13:11 Currently or been in a relationship where the following occur: I choose not to answer Const General: no acute distress and alert HENMT Ears: TM's normal bilaterally and EAC's normal Throat: Yes posterior oropharynx normal and Yes tonsils normal (no TP congestion noted) Neck Neck: Yes supple and No lymphadenopathy Thyroid: Thyroid normal Resp Auscultation: no crackles, no rales, no wheezes and diminished lung sounds (significantly) bilateral Cardio Rate: regular rate Rhythm: regular rhythm Heart sounds: no murmurs GI Palpation (GI): Soft to palpation and nontender Auscultation: normal bowel sounds General: Yes no CVA tenderness Back/Spine/Pelvis Back: no CVA tenderness Thoracic/Lumbar Spine: lumbar spinal tenderness Skin Rashes: no rashes Extrem General: Yes no clubbing, cyanosis or edema Coding Level of Care Code Est Pt Level 4 (12862) Diagnoses Chronic obstructive pulmonary disease, unspecified COPD type J44.9 COPD type: unspecified COPD Atherosclerotic cardiovascular disease I25.10 Mixed hyperlipidemia E78.2 Essential hypertension I10 Allergic rhinitis, unspecified seasonality, unspecified trigger J30.9 Allergic rhinitis trigger: unspecified Allergic rhinitis seasonality: unspecified Primary osteoarthritis, unspecified site M19.91 Osteoarthritis location: unspecified site Osteoarthritis type: primary Degeneration of intervertebral disc of lumbar region with discogenic back pain M51.360 Disc-related pain type: discogenic back pain only Neuropathy G62.9 Primary insomnia F51.01 Overweight (BMI 25.0-29.9) E66.3 Assessment & Plan Assessment & Plan (1) COPD (chronic obstructive pulmonary disease): Code(s): J44.9 - Chronic obstructive pulmonary disease, unspecified Category: Medical Qualifiers: COPD type: unspecified COPD Qualified Code(s): J44.9 - Chronic obstructive pulmonary disease, unspecified Plan: Low-dose CT done on 09/18/2023 revealed (+) emphysematous disease and pulmonary parenchymal scarring without interval development of suspicious pulmonary nodules He apparently had an acute exacerbation of his COPD a couple of weeks ago but his respiratory symptoms have since improved and patient states that he currently feels like he is back to his baseline Continue Trelegy Ellipta 1 puff QD, Daliresp 500 mcg tablet once a day and Ventolin HFA 2 puffs 4 times a day as needed; patient also uses his nebulizer with Albuterol solution up to 4 times a day when needed Continue Mucinex ER 600 mg tablet BID PRN to help loosen up his phlegm and make it easier for him to cough up his phlegm Patient also has nocturnal hypoxemia and is encouraged to continue using his oxygen at night consistently when he is sleeping Follow-up with pulmonary (Dr. 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 of RCA He was recommended to continue with aggressive risk reduction and medical management with dual anti-platelet therapy, long-acting nitrates (Isosorbide mononitrate ER 30 mg QD) and high-dose statins Per cardiology, IF symptoms persist or progress, will then consider intervention of his RCA disease Follow-up with cardiology as scheduled (3) Mixed hyperlipidemia: Code(s): E78.2 - Mixed hyperlipidemia Category: Medical Plan: Reinforced low cholesterol diet Continue Atorvastatin 80 mg QD - he was taken off Gemfibrozil and started on Atorvastatin after his cardiac cath a few years ago in 2020 Will recheck his labs and fasting lipids as originally scheduled next month for follow-up (4) Essential hypertension: Code(s): I10 - Essential (primary) hypertension Category: Medical Plan: Reinforced low-sodium diet -? goal is systolic BP of at least 120 to 130 mm or l ess Continue Losartan 100 mg QD and Amlodipine 5 mg QD (5) Allergic rhinitis: Code(s): J30.9 - Allergic rhinitis, unspecified Category: Medical Qualifiers: Allergic rhinitis trigger: unspecified Allergic rhinitis seasonality: unspecified Qualified Code(s): J30.9 - Allergic rhinitis, unspecified Plan: Continue Fluticasone 50 mcg nasal spray QD PRN (6) Osteoarthritis: Code(s): M19.90 - Unspecified osteoarthritis, unspecified site Category: Medical Qualifiers: Osteoarthritis location: unspecified site Osteoarthritis type: primary Qualified Code(s): M19.91 - Primary osteoarthritis, unspecified site Plan: Patient states that his joint pains remain adequately controlled on Tramadol PRN (7) Lumbar degenerative disc disease: Code(s): M51.36 - Other intervertebral disc degeneration, lumbar region Category: Medical Qualifiers: Disc-related pain type: discogenic back pain only Qualified Code(s): M51.360 - Other intervertebral disc degeneration, lumbar region with discogenic back pain only Plan: Reinforced activity and weight lifting restrictions Lumbar spine MRI done in February 2023 revealed (+) multilevel degenerative disc disease MRI revealed (+) mild to moderate spinal canal stenosis at L3-L4 with bilateral subarticular stenosis and compression of the exiting right more than left L3 nerve roots. At L4-L5, there is mild to moderate spinal canal stenosis, bilateral subarticular stenosis with compression of the traversing L5 nerve roots, and severe bilateral neural foraminal stenosis with compression of both exiting L4 nerve roots. 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
[2025-04-02 13:12] VITALS: BP 122/68; PULSE 96; O2SAT 96; BMI 29.2
--- OUTSIDE RECORDS SUMMARY | 2025-04-02 14:06 | XMS_ITS | Patient Health Record ---
Author Organization [facility] Address [address] [place] [address] Care Team Providers Care In Room Dining Server Name Role Phone Naif RUCKER, [place] Primary Care Provider Rustam Vega Jr Unavailable [phone] Reason For Referral No Information Medications Medication [...] Status Risk Notes Problem Colon cancer screening ([id number]) Colon cancer screening (V76.51) Active confirmed Plan Of Treatment Future Test Test Name Order Date COLONOSCOPY 08/30/2013 Insurance Providers Payer Name Payer Address Payer Phone Subscriber Number Group Number Insured Name Patient Relationship to Insured Coverage Start Date Coverage End Date [employer]/ 21-64 Yrs [address] [address] [place] [address] [id number] ANNA MCKEON Self - patient is the insured Medicare of [facility] [address] [place] [address] [id number] ANNA MCKEON Self - patient is the insured MEDICAID OF [facility] [address] [place] [address] [id number] ANNA MCKEON Self - patient is the insured Medical (General) History Medical History History ICD Code colonoscopy 11-07-2008 colon polyps asthma bronchitis elevated cholesterol hypertension Surgical History Surgery Date(Month/Year) knee arthroscopy
== END 2025-04-02 13:58 | disposition home or self-care (01) ==
LOC: HO.HMCH 12:57
PROVIDERS: PCP Internal Medicine; Visit Provider Internal Medicine
DX: J44.9 Chronic obstructive pulmonary disease, unspecified (principal); I25.10 Atherosclerotic heart disease of native coronary artery without angina pectoris; E78.2 Mixed hyperlipidemia; I10 Essential (primary) hypertension; J30.9 Allergic rhinitis, unspecified; M19.91 Primary osteoarthritis, unspecified site; M51.360 Other intervertebral disc degeneration, lumbar region with discogenic back pain only; G62.9 Polyneuropathy, unspecified; F51.01 Primary insomnia; E66.3 Overweight

== ENCOUNTER → 2025-04-02 12:56 | Outpatient (BNVA) | payer MEDICARE, MEDICAID, SELFPAY | PROVIDERS: PCP Internal Medicine; Visit Provider Internal Medicine | DX: I25.10 Atherosclerotic heart disease of native coronary artery without angina pectoris (principal); J44.9 Chronic obstructive pulmonary disease, unspecified; E78.2 Mixed hyperlipidemia; I10 Essential (primary) hypertension; J30.9 Allergic rhinitis, unspecified; M19.91 Primary osteoarthritis, unspecified site; M51.360 Other intervertebral disc degeneration, lumbar region with discogenic back pain only; G62.9 Polyneuropathy, unspecified; F51.01 Primary insomnia; E66.3 Overweight | CPT/HCPCS: 99212 ==

== ENCOUNTER 2025-04-14 07:04 | Outpatient (REF) | payer MEDICARE, MEDICAID, SELFPAY ==
--- OUTSIDE RECORDS SUMMARY | 2025-04-14 07:09 | XMS_ITS | Patient Health Record ---
Author Organization [facility] Address [address] [place] [address] Care Team Providers Care Yardmaster Name Role Phone Naif RUCKER, [place] Primary Care Provider Rustam Vega Jr Unavailable Reason For Referral No Information Medications Medication SIG (Take, Route, Frequency, Duration) Notes Start Date End Date Status Advair HFA Active ProAir HFA Active Albuterol Active Gemfibrozil Active Lisinopril Active Colyte with Flavor Packs 240 GM As directed Orally Over the specified time.; Duration: 1 day(s) 08/30/2013 07/05/2024 Active Problems Problem Type SNOMED Code ICD Code Onset Dates Problem Status W/U Status Risk Notes Problem Colon cancer screening ([id number]) Colon cancer screening (V76.51) Active confirmed Plan Of Treatment Future Test Test Name Order Date COLONOSCOPY 08/30/2013 Insurance Providers Payer Name Payer Address Payer Phone Subscriber Number Group Number Insured Name Patient Relationship to Insured Coverage Start Date Coverage End Date [employer]/ 21-64 Yrs [address] [address] [place] [address] [id number] ANNA MCKEON Self - patient is the insured Medicare of [facility] [address] [place] [address] [id number] ANNA MCKEON Self - patient is the insured MEDICAID OF [facility] [address] [place] [address] [id number] ANNA MCKEON Self - patient is the insured Medical (General) History Medical History History ICD Code colonoscopy 11-07-2008 colon polyps asthma bronchitis elevated cholesterol hypertension Surgical History Surgery Date(Month/Year) knee arthroscopy
--- OUTSIDE RECORDS SUMMARY | 2025-04-14 07:09 | XMS_ITS ---
Author Name [facility] Organization Unknown Encounters Encounter Type Encounter Reason Primary Diagnosis Location Date Ambulatory TBE Hypoesthesia of skin [facility] 04/11/2025 Care Team Organization Name Specialty Phone Email Start Date End [facility] 04/11/2025 [facility] 04/11/2025
--- OUTSIDE RECORDS SUMMARY | 2025-04-14 07:09 | XMS_ITS | Clinical Summary ---
Author Organization [facility] Address [address] [place] [address] Phone Care Team Providers Care Oyster Sorter Name Role Phone Sanju Disla MD Primary [...] DAILY 90 tablet 1 11/22/19 25 Active dextromethorphan- guaiFENesin (ROBITUSSIN-DM) 10-100 mg/5 mL syrup Take 10 mL by mouth every 4 (four) hours if needed for cough. 473 mL 1 02/17/20 25 Active nicotine (NICODERM CQ) 21 mg/[address] 1 patch on the skin 1 (one) time each day at the same time. 30 each 02/17/20 25 Active predniSONE (DELTASONE) 20 mg tablet 1-2 tab po qd prn for copd exacerbation 10 each 03/07/20 25 Active umeclidinium-vj nteroL (Anoro Ellipta) 62.5-25 mcg/actuation inhaler Inhale 1 puff by mouth 1 (one) time each day. 1 each 03/09/20 25 026 Active predniSONE (DELTASONE) 20 mg tablet Take 2 tablets (40 mg total) by mouth 1 (one) time each day for 5 days. See instructions. 10 tablet 03/20/20 25 025 doxycycline (MONODOX) 100 mg capsule Take 1 capsule (100 mg total) by mouth 2 (two) times a day for 5 days. Take with at least 8 ounces (large glass) of water, do not lie down for 30 minutes after. Administer 2 hours before or after multivitamins, antacids, or other products containing polyvalent cations (i.e., calcium, iron, magnesium, selenium, zinc). 10 each 03/20/20 025 Active Problems Problem Noted Date Diagnosed Date SOB (shortness of breath) 02/16/2025 Coronary artery disease invo lving [place] coronary artery of [place] heart without angina pectoris 07/11/2024 Assessment & [...] Acute on chronic hypoxic res piratory failure ([facility] V24, [facility] V28) 05/15/2024 COPD exacerbation ([facility] V24, [facility] V28) 04/2024 Inclusion cyst 05/08/2019 [...] 08/10/2017 Chronic obstructive pulmonar y disease (COPD) ([facility] V24, [facility] V28) 02/11/2017 Resolved Problems Problem Noted Date Diagnosed Date Resolved Date Chest pain 07/03/2024 07/11/2024 Encounters Date Type Department Care Team Description 04/05/2025 11:15 AM EDT Office Visit Pulmonology [facility] [address] [facility] [address] [place] [phone] Jayshree Gibbs MD Acute on chronic hypoxic respiratory failure ([facility] V24, [facility] V28) (Primary Dx); Supplemental oxygen dependent; End stage chronic obstructive pulmonary disease ([facility] V24, [facility] V28); Acute on chronic respiratory failure with hypoxia and hypercapnia ([facility] V24, [facility] V28) 03/29/2025 9:29 AM EDT - 03/29/2025 1:15 PM EDT Emergency [facility] Emergency [address] [place] [phone] Near syncope (Primary Dx) Discharge Disposition: Home or Self Care 03/20/2025 12:14 PM EDT - 03/20/2025 4:24 PM EDT Emergency [facility] Emergency [address] [place] [phone] COPD exacerbation ([facility] V24, [facility] V28) (Primary Dx) Discharge Disposition: Home or Self Care 03/20/2025 Telephone Pulmonology - [place] [address] [phone] Jayshree Gibbs MD 03/07/2025 2:45 PM EDT Office Visit Pulmonology [facility] [address] [phone] Jayshree Gibbs MD Acute on chronic hypoxic respiratory failure ([facility] V24, [facility] V28) (Primary Dx); Supplemental oxygen dependent; Pulmonary emphysema, unspecified emphysema type ([facility] V24, [facility] V28) 02/15/2025 9:32 PM EDT - 02/16/2025 2:46 PM EDT Hospital Encounter [facility] Emergency [address] [place] [phone] Tomer Holland MD Ishtiaq, Rizwan, MD Bell, Alistair A, MD COPD exacerbation ([facility] V24, [facility] V28) (Primary Dx); Acute on chronic respiratory failure with hypoxia ([facility] V24, [facility] V28) Discharge Disposition: Home or Self Care from Last 3 Months Immunizations Immunization Administration Dates Next Due Influenza Quadravalent, MDCK , 0.5ml, preservative free (Flucelvax) 6mo and older 04/28/2022 Surgical History Surgery Date Site/Laterality Comments KNEE SURGERY PROCEDURE: HISTORICAL KNEE SURGERY DENTAL SURGERY PROCEDURE: PA UNLISTED PROCEDURE DENTOALVEOLAR STRUCTURES Medical History Medical History Date Comments Arthritis DX:Arthritis Cholelithiasis 08/10/2017 DX:Cholelithiasi s Diverticulosis 08/10/2017 DX:Diverticulosi s Hyperlipidemia 08/10/2017 DX:Hyperlipidemi a Tobacco use 02/11/2017 DX:Tobacco use Chronic obstructive pulmonar y disease (COPD) ([facility] V24, [facility] V28) 02/11/2017 DX:Chronic obstructi ve pulmonary disease (COPD) ([facility]) Supplemental oxygen dependent 08/10/2017 DX :Supplemental oxygen dependent Lymphadenopathy 11/18/2017 DX:Lymphadenopat hy; COMMENT: 1.[address] Asthma DX:Asthma Pneumonia DX:Pneumonia Essential hypertension DX:Essent ial hypertension Family History Relation Name Status Comments Father Mother Social History Tobacco Use Types Packs/Day Years Used Date Smoking Tobacco: Former Cigarettes 0.5 54.8 S tarted: 07/05/1970 Smokeless Tobacco: Never Quit: 02/02/2018 Tobacco Cessation:Counseling Given: Not Answered Comments:0.5 pack daily Alcohol Use Standard Drinks/Week Comments Not Currently 0 (1 standard drink = 0.6 oz pur e alcohol) Interpersonal Safety Answer Date Record ed Physical Abuse Unrecognized value 08/05/2024 Verbal Abuse Unrecognized value 08/05/2024 Sex and Gender Information Value Date Recorded Sex Assigned at Male 05/16/2024 12:44 AM EST Legal Sex Male 3:52 PM EST Gender Identity Male 05/16/2024 12:44 AM EST Sexual Orientation Straight 05/16/2024 12 :44 AM EST Obstetrics History Last Filed Vital Signs Vital Sign Reading Time Taken Comments Blood Pressure 126/56 04/05/2025 11:18 AM EDT Pulse 80 04/05/2025 11:18 AM EDT Temperature 36.6 C (97.8 F) 04/05/2025 11:18 AM EDT Respiratory Rate 20 04/05/2025 11:18 AM EDT Oxygen Saturation 95% 04/05/2025 11:18 AM EDT Inhaled Oxygen Concentration - - Weight 96.6 kg (213 lb) 03/29/2025 9:15 AM EDT Height 182.9 cm (6') 03/29/2025 9:15 AM EDT Body Mass Index 28.89 03/29/2025 9:15 AM EDT Plan of Treatment Upcoming Encounters Date Type Department Care Team (Late st Contact Info) Description 05/09/2025 1:30 PM EST Office Visit Pulmonology - [place] [address] [facility] [address] [place] [phone] Jayshree Gibbs MD [address] [facility] [address] [place] [address] 05/28/2025 7:30 AM EST Appointment [facility] CT Scan [address] [place] [phone] Health Maintenance Due Date Last Done Comments Colorectal Cancer Screening: Colonoscopy 1960 Diabetes: Annual Foot Exam 01/12/1968 Diabetes: Annual Retina Eye Exam 01/12/1968 Pneumococcal Vaccine: 50+ Years (2 of 2 - PCV) 06/09/2018 06/09/2017, 11/16/2015 Abdominal Aortic Aneurysm (AAA) Screen 06/13/2022 Cholesterol Screening (Lipid Panel) 06/13/2022 Hepatitis C Screening 06/13/2022 Medicare Annual Wellness Visit 06/13/2022 Social Influencers of Health Screening 06/13/2022 Depression Screening 07/05/2024 Diabetes: Annual Urine Albumin-Creatinine Ratio (uACR) 07/11/2024 Diabetes: Blood Sugar Control Test (HGBA1C) 07/11/2024 COVID-19 Vaccine ( season) 2025 07/14/2021, 11/16/2020, 10/19/2020 Influenza Vaccine (#1) 2025 , 04/01/2023, 04/28/2022, Additional history exists Falls Risk Assessment 08/07/2025 08/07/2024 Diabetes: Annual GFR (Glomerular Filtration Rate) 03/29/2026 03/29/2025, 03/20/2025, 02/16/2025, Additional history exists Hypertension/CHF/CAD Annual BMP Blood Test 03/29/2026 03/29/2025, 03/20/2025, 02/16/2025, Additional history exists DTaP,Tdap,and Td Vaccines (2 [...] Priority Date/Time Associated Diagnosis Comments ECG ANNOTATED 03/30/2025 XR CHEST 2 VIEWS STAT 03/29/2025 10:5 0 AM EDT CBC WITH AUTO DIFFERENTIAL STAT 03/29/2025 9:24 AM EDT MAGNESIUM STAT 03/29/2025 9:24 AM EDT BASIC METABOLIC PANEL STAT 03/29/2025 9:24 AM EDT CBC AND DIFFERENTIAL STAT 03/29/2025 9:24 AM EDT ECG 12-LEAD STAT 03/29/2025 9:19 AM EDT ECG ANNOTATED 03/21/2025 XR CHEST 2 VIEWS [...] ECG 12-LEAD STAT 02/15/2025 10:19 PM EDT PA CRITICAL CARE 30-74 MINUTES Routine 02/15/2025 9:[address] LUNG SCREENING LOW DOSE Routine 06/29/2023 6:57 AM EST Encounter for screening for malignant neoplasm of respiratory organs from Last 3 Months or Most Recently Relevant to Health Maintenance Results * ECG-Annotated (03/30/2025) Only the most recent of3 resultswithin the time period is included. us Provider Onbase ECG ORDERABLES Final Result * XR Chest 2 Views (03/29/2025 10:50 AM EDT) Only the most recent of2 resultswithin the time period is included. Anatomical Region Laterality Modality Body Radiographic Isabel ging 03/29/2025 11:0 0 AM EDT Impressions 03/29/2025 11:02 AM EDT Emphysematous changes without infiltrates or effusions. No significant change from the prior study. -------- FINAL REPORT -------- Dictated By: Alanna Maharaj Dictated Date: 03/29/2025 11:00 ET Assigned Physician: Alanna Maharaj Reviewed and Electronically Signed By: Alanna Maharaj Signed Date: 03/29/2025 11:02 ET Workstation ID: [id number] Transcribed By: Self Edit Transcribed Date: 03/29/2025 11:00 ET Narrative 03/29/2025 11:02 AM EDT INDICATION: Dizziness, hypertension, COPD FINDINGS: Two views of the chest were obtained. Compared to multiple prior studies most recent from March 20 2025. Emphysematous changes without infiltrates or effusions. Cardiomediastinal silhouette is normal in size and shape. Old left-sided rib fractures. Procedure Note Alanna Maharaj MD - 03/29/2025 INDICATION: Dizziness, hypertension, COPD FINDINGS: Two views of the chest were obtained. Compared to multiple priorstudies most recent from March 20 2025. Emphysematous changes without infiltrates or effusions. Cardiomediastinal silhouette is normal in size and shape. Old left-sided rib fractures. IMPRESSION: Emphysematous changes without infiltrates or effusions. No significantchange from the prior study. -------- FINAL REPORT -------- Dictated By: Alanna Maharaj Dictated Date: 03/29/2025 11:00 ET Assigned Physician: Alanna Maharaj Reviewed and Electronically Signed By: Alanna Maharaj Signed Date: 03/29/2025 11:02 ET Workstation ID: [id number] Transcribed By: Self Edit Transcribed Date: 03/29/2025 11:00 ET us Philip HARRISON IMG XR PROCEDURES Final Resu lt * (ABNORMAL) CBC auto differential (03/29/2025 9:24 AM EDT) Only the most recent of4 resultswithin the time period is included. [facility] WBC 9.0 4.8 - 10.8 K/mcL LAB HEMETOLOGY METHOD 03/29/2025 10:04 AM [facility] RBC 4.60 4.50 - 5.50 M/mcL LAB HEMETOLOGY METHOD 03/29/2025 10:04 AM [facility] Hemoglobin 14.0 13.5 - 17.5 g/dL LAB HEMETOLOGY METHOD 03/29/2025 10:04 AM [facility] Hematocrit 41.0(L) 42.0 - 54.0 % LAB HEMETOLOGY METHOD 03/29/2025 10:04 AM [facility] MCV 89.3 79.0 - 98.0 FL LAB HEMETOLOGY METHOD 03/29/2025 10:04 AM [facility] MCH 30.5 27.0 - 32.0 pcg LAB HEMETOLOGY METHOD 03/29/2025 10:04 AM [facility] MCHC 34.1 32.0 - 37.0 g/dL LAB HEMETOLOGY METHOD 03/29/2025 10:04 AM [facility] RDW 12.4 11.0 - 15.0 % LAB HEMETOLOGY METHOD 03/29/2025 10:04 AM [facility] Platelets 215 130 - 400 K/mcL LAB HEMETOLOGY METHOD 03/29/2025 10:04 AM [facility] MPV 9.1 7.0 - 11.0 FL LAB HEMETOLOGY METHOD 03/29/2025 10:04 AM [facility] NRBC 0.0 <1.0 % LAB HEMETOLOGY METHOD 03/29/2025 10:04 AM [facility] NRBC Absolute 0.00 <0.10 K/mcL LAB HEMETOLOGY METHOD 03/29/2025 10:04 AM [facility] Neutrophils Relative 68.5 % LAB HEMETOLOGY METHOD 03/29/2025 10:04 AM [facility] Lymphocytes Relative 18.3 % LAB HEMETOLOGY METHOD 03/29/2025 10:04 AM [facility] Monocytes Relative 9.1 % LAB HEMETOLOGY METHOD 03/29/2025 10:04 AM [facility] Eosinophils Relative 3.0 % LAB HEMETOLOGY METHOD 03/29/2025 10:04 AM [facility] Basophils Relative 0.4 % LAB HEMETOLOGY METHOD 03/29/2025 10:04 AM [facility] Immature Granulocytes Relative 0.7 % LAB HEMETOLOGY METHOD 03/29/2025 10:04 AM [facility] Neutrophils Absolute 6.19 1.50 - 7.00 K/mcL LAB HEMETOLOGY METHOD 03/29/2025 10:04 AM [facility] Lymphocytes Absolute 1.65 1.00 - 5.00 K/mcL LAB HEMETOLOGY METHOD 03/29/2025 10:04 AM [facility] Monocytes Absolute 0.82 0.20 - 1.00 K/mcL LAB HEMETOLOGY METHOD 03/29/2025 10:04 AM [facility] Eosinophils Absolute 0.27 0.00 - 0.50 K/mcL LAB HEMETOLOGY METHOD 03/29/2025 10:[address] [facility] Basophils Absolute 0.04 0.00 - 0.20 K/[facility] LAB HEMETOLOGY METHOD 03/29/2025 10:[address] [facility] Immature Granulocytes Absolute 0.06(H) 0.00 - 0.03 K/[facility] LAB HEMETOLOGY METHOD 03/29/2025 10:[address] [facility] Blood Venous blood specimen / Unknown Venipuncture / Unknown 03/29/2025 9:24 AM EDT 03/29/2025 9:53 AM EDT Philip HARRISON LAB BLOOD ORDERABLES Final R critical access hospital Performing Organization Address City/[facility]/ZIP Co de Phone Number [facility] [address] [place] [address], [place] [phone] * Magnesium (03/29/2025 9:24 AM EDT) Only the most recent of2 resultswithin the time period is included. Magnesium 2.0 1.9 - 2.6 mg/dL LAB CHEMISTRY METHOD 03/29/2025 10:[address] [facility] Blood Venous blood specimen / Unknown Venipuncture / Unknown 03/29/2025 9:24 AM EDT 03/29/2025 9:53 AM EDT Philip HARRISON LAB BLOOD ORDERABLES Final R esult Performing Organization Address City/[facility]/ZIP Co de Phone Number [facility] [address] [place] [address], * (ABNORMAL) Basic metabolic panel (03/29/2025 9:24 AM EDT) Only the most recent of3 resultswithin the time period is included. Sodium 139 133 - 145 mmol/L LAB CHEMISTRY METHOD 03/29/2025 10:20 AM [facility] Potassium 4.3 3.5 - 5.5 mmol/L LAB CHEMISTRY METHOD 03/29/2025 10:20 AM [facility] Chloride 108 96 - 110 mmol/L LAB CHEMISTRY METHOD 03/29/2025 10:20 AM [facility] CO2 28 21 - 32 mmol/L LAB CHEMISTRY METHOD 03/29/2025 10:20 AM [facility] Anion Gap 3 3 - 11 LAB CHEMISTRY METHOD 03/29/2025 10:20 AM [facility] Glucose 108(H) 70 - 100 mg/dL LAB CHEMISTRY METHOD 03/29/2025 10:20 AM [facility] BUN 16 5 - 25 mg/dL LAB CHEMISTRY METHOD 03/29/2025 10:20 AM [facility] Creatinine 1.01 0.70 - 1.30 mg/dL LAB CHEMISTRY METHOD 03/29/2025 10:20 AM [facility] eGFR 82 >=60 mL/min/1. 73m2 LAB CHEMISTRY METHOD 03/29/2025 10:20 AM [facility] Comment:Calculation based on the Chronic Kidney Disease Epidemiology Collaboration (CKD-EPI) equation refit without adjustment for race. BUN/Creatinine Ratio 15.8 LAB CHEMISTRY METHOD 03/29/2025 10:20 AM [facility] Calcium 8.9 8.5 - 10.5 mg/dL LAB CHEMISTRY METHOD 03/29/2025 10:20 AM [facility] Blood Venous blood specimen / Unknown Venipuncture / Unknown 03/29/2025 9:24 AM EDT 03/29/2025 9:53 AM EDT us Philip HARRISON LAB BLOOD ORDERABLES Final R esult [facility] [address] [place] [address], * ECG 12 lead (03/29/2025 9:19 AM EDT) Only the most recent of3 resultswithin the time period is included. Pathologist [facility] Ventricular Rate ECG 91 BPM GEMUSE Atrial Rate 91 BPM GEMUSE P-R Interval 122 ms GEMUSE QRS Duration 140 ms GEMUSE Q-T Interval 382 ms GEMUSE QTc 469 ms GEMUSE P Wave [place] 5 degrees GEMUSE R [place] 88 degrees GEMUSE T [place] 40 degrees GEMUSE ECG Interpretation Normal sinus rhythm Right bundle branch block Abnormal ECG When compared with ECG of 20-MAR-2025 12:21, Premature supraventricular complexes are no longer Present Confirmed by Layton DEE JOHN ([id number]) on 03/29/2025 1:19:46 PM GEMUSE 03/29/2025 9:19 AM EDT 03/29/2025 1:19 PM EDT Philip HARRISON ECG ORDERABLES Final Result GEMUSE * Troponin I high sensitivity (03/20/2025 1:23 PM EDT) Only the most recent of2 resultswithin the time period is included. [facility] High Sensitivity Troponin I 7 <=79 ng/L LAB CHEMISTRY METHOD 03/20/2025 2:[address] [facility] Blood Venous blood specimen / Unknown Venipuncture / Unknown 03/20/2025 1:23 PM EDT 03/20/2025 2:[address] [facility] - 03/20/2025 2:19 PM EDT High levels of biotin in samples may falsely decrease hsTroponin values. Use caution when interpreting hsTroponin results in patients taking biotin who exhibit renal impairment (eGFR <60) or in patients taking more than 20 mg/day of biotin. Rashida Rangel MD LAB BLOOD ORDERABLES Final Resul t [facility] [address] [place] [address], * Respiratory virus panel molecular study (03/20/2025 12:26 PM EDT) Only the most recent of2 resultswithin the time period is included. Adenovirus Detection by PCR Not Detected Not Detected LAB MICROBIOLOGY METHOD 03/20/2025 2:[address] [facility] Influenza A PCR Not Detected Not Detected LAB MICROBIOLOGY METHOD 03/20/2025 2:[address] [facility] Influenza B PCR Not Detected Not Detected LAB MICROBIOLOGY METHOD 03/20/2025 2:[address] [facility] Coronavirus 229E Not Detected Not Detected LAB MICROBIOLOGY METHOD 03/20/2025 2:[address] [facility] Coronavirus HKU1 Not Detected Not Detected LAB MICROBIOLOGY METHOD 03/20/2025 2:[address] [facility] Coronavirus OC43 Not Detected Not Detected LAB MICROBIOLOGY METHOD 03/20/2025 2:[address] [facility] Coronavirus NL63 Not Detected Not Detected LAB MICROBIOLOGY METHOD 03/20/2025 2:[address] [facility] Parainfluenza Virus 1 Not Detected Not Detected LAB MICROBIOLOGY METHOD 03/20/2025 2:[address] [facility] Parainfluenza Virus 2 Not Detected Not Detected LAB MICROBIOLOGY METHOD 03/20/2025 2:[address] [facility] Parainfluenza Virus 3 Not Detected Not Detected LAB MICROBIOLOGY METHOD 03/20/2025 2:[address] [facility] Parainfluenza Virus 4 Not Detected Not Detected LAB MICROBIOLOGY METHOD 03/20/2025 2:[address] [facility] RSV PCR Not Detected Not Detected LAB MICROBIOLOGY METHOD 03/20/2025 2:[address] [facility] Human Metapneumovirus A and B Not Detected Not Detected LAB MICROBIOLOGY METHOD 03/20/2025 2:[address] [facility] Rhinovirus/Entero virus Not Detected Not Detected LAB MICROBIOLOGY METHOD 03/20/2025 2:[address] [facility] Bordetella pertussis Not Detected Not Detected LAB MICROBIOLOGY METHOD 03/20/2025 2:[address] [facility] Bordetella parapertussis Not Detected Not Detected LAB MICROBIOLOGY METHOD 03/20/2025 2:[address] [facility] Mycoplasma pneumo by PCR Not Detected Not Detected LAB MICROBIOLOGY METHOD 03/20/2025 2:[address] [facility] Chlamydia pneumoniae Not Detected Not Detected LAB MICROBIOLOGY METHOD 03/20/2025 2:[address] [facility] SARS COV-2 Not Detected Not Detected LAB MICROBIOLOGY METHOD 03/20/2025 2:[address] [facility] Swab Both anterior nares / Unknown Non-blood Collection / Unknown 03/20/2025 12:26 PM EDT 03/20/2025 1:[address] [facility] - 03/20/2025 2:27 PM EDT Testing was performed using the [employer] Respiratory Pathogen PCR Assay. All results must [...] are below the limit of detection. us Rashida Rangel MD LAB MICROBIOLOGY - GENERAL ORDER TAYLOR Final Result [facility] [address] [place] [address], * B-type natriuretic peptide (03/20/2025 12:24 PM EDT) Only the most recent of2 resultswithin the time period is included. BNP 75 <=100 pcg/mL LAB CHEMISTRY METHOD 03/20/2025 2:02 PM [facility] Blood Venous blood specimen / Unknown Venipuncture / Unknown 03/20/2025 12:24 PM EDT 03/20/2025 1:25 PM EDT us Rashida Rangel MD LAB BLOOD ORDERABLES Final Resul t [facility] [address] [place] [address], * (ABNORMAL) Comprehensive metabolic panel (02/15/2025 10:27 PM EDT) Pathologist [facility] Sodium 137 133 - 145 mmol/L LAB CHEMISTRY METHOD 02/15/2025 11:11 PM [facility] Potassium 4.1 3.5 - 5.5 mmol/L LAB CHEMISTRY METHOD 02/15/2025 11:11 PM [facility] Chloride 107 96 - 110 mmol/L LAB CHEMISTRY METHOD 02/15/2025 11:11 PM [facility] CO2 26 21 - 32 mmol/L LAB CHEMISTRY METHOD 02/15/2025 11:11 PM [facility] Anion Gap 4 3 - 11 LAB CHEMISTRY METHOD 02/15/2025 11:11 PM [facility] Glucose 108(H) 70 - 100 mg/dL LAB CHEMISTRY METHOD 02/15/2025 11:11 PM [facility] BUN 10 5 - 25 mg/dL LAB CHEMISTRY METHOD 02/15/2025 11:11 PM [facility] Creatinine 1.04 0.70 - 1.30 mg/dL LAB CHEMISTRY METHOD 02/15/2025 11:11 PM [facility] eGFR 79 >=60 mL/min/1. 73m2 LAB CHEMISTRY METHOD 02/15/2025 11:[address] [facility] Comment:Calculation based on the Chronic Kidney Disease Epidemiology Collaboration (CKD-EPI) equation refit without adjustment for race. BUN/Creatinine Ratio 9.6 LAB CHEMISTRY METHOD 02/15/2025 11:[address] [facility] Calcium 9.0 8.5 - 10.5 mg/dL LAB CHEMISTRY METHOD 02/15/2025 11:[address] [facility] AST (SGOT) 20 10 - 42 unit/L LAB CHEMISTRY METHOD 02/15/2025 11:11 PM [facility] ALT (SGPT) 27 10 - 60 unit/L LAB CHEMISTRY METHOD 02/15/2025 11:11 PM [facility] Alkaline Phosphatase 127(H) 42 - 121 unit/L LAB CHEMISTRY METHOD 02/15/2025 11:11 PM [facility] Total Protein 6.6 6.0 - 8.0 g/dL LAB CHEMISTRY METHOD 02/15/2025 11:11 PM [facility] Albumin 3.8 3.2 - 5.0 g/dL LAB CHEMISTRY METHOD 02/15/2025 11:11 PM [facility] Total Bilirubin 0.7 0.0 - 1.4 mg/dL LAB CHEMISTRY METHOD 02/15/2025 11:11 PM [facility] Blood Venous blood specimen / Unknown Venipuncture / Unknown 02/15/2025 10:27 PM EDT 02/15/2025 10:33 PM EDT us Tomer Holland MD LAB BLOOD ORDERABLES Final R esult [facility] [address] [place] [address], [place] [phone] * XR Chest 1 View (02/15/2025 10:20 PM EDT) Anatomical Region Laterality Modality Body Radiographic Isabel ging 02/16/2025 8:47 AM EDT Impressions 02/16/2025 8:48 AM EDT No acute findings. -------- FINAL REPORT -------- Dictated By: Raphael Denton Dictated Date: 02/16/2025 08:47 ET Assigned Physician: Raphael Denton Reviewed and Electronically Signed By: Raphael Denton Signed Date: 02/16/2025 08:48 ET Workstation ID: [id number] Transcribed By: Self Edit Transcribed Date: 02/16/2025 [...] Signed Date: 02/16/2025 08:48 ET Workstation ID: [id number] Transcribed By: Self Edit Transcribed Date: 02/16/2025 08:47 ET us Tomer Holland MD IMG XR PROCEDURES Final Resu lt * PA CRITICAL CARE 30-74 MINUTES (02/15/2025 9:22 PM [...] COPD exacerbation requiring multiple DuoNeb treatments us Tomre Holland MD IN CLINIC/BEDSIDE ORDERABLES Final Result * CT LUNG SCREENING LOW DOSE (06/29/2023 6:57 AM EST) Anatomical Region Laterality Modality Computed Tomogra phy 06/15/2023 1:42 PM EST Narrative 06/29/2023 6:57 AM EST [facility] Diagnostic Imaging Department [address] [place] [id number] Patient: ANNA JACKSON Jennifer /Age/Sex: 1960 - 63 - M Unit#: [id number] Location/Status: [facility] CLI Mnemonic/Ordering Site: [facility] [place] Ordering Physician: SHARIF ALY MD CT Lung Screening Low Dose - 06/15/23 - 1351 Report Status:Signed Indication: Greater than 20 total pack-year smoking history, asymptomatic former smoker Technique: Low-dose CT scan of the chest obtained as a lung cancer screening study. Multiplanar reformatted images were obtained. Dose reduction technique: ASIR (Adaptive statistical iterative reconstruction) and/or AEC (automated exposure control) COMPARISON: [id number]. FINDINGS: Lack of intravenous contrast limits evaluation [...] Procedure Note Jhonny Patel MD - 08/10/2023 [facility] Diagnostic Imaging Department [address] [place] [address] [id number] Patient: ANNA JACKSON Jennifer /Age/Sex: 1960 - 63 - M Unit#: [id number] Location/Status: [facility] CLI [facility] Ordering Physician: SHARIF ALY MD CT Lung Screening Low Dose - 06/15/23 - 1351 Report Status:Signed Indication: Greater than 20 total pack-year smoking history,asymptomatic former smoker Technique: Low-dose CT scan of the chest obtained as a lung cancerscreening study. Multiplanar reformatted images were obtained. Dose reductiontechnique: ASIR (Adaptive statistical iterative reconstruction) and/or AEC(automated exposure control) COMPARISON: [id number]. FINDINGS: Lack of intravenous contrast limits evaluation [...] Documents on File Type Date Recorded Patient Beader Alyse isidro Advance Directives and Living Will [...] First Alternate Health Care Agent Care Teams Oyster Sorter Relationship Specialty Start Date End Date Sanju Disla MD [address] [place] [address] Dr [address] SAVANNAH Kuo PCP - General 05/07/1997
[2025-04-14 07:34] LABS: MANUAL DIFF FLAG NO
[2025-04-14 08:18] LABS: Hematocrit 42.2 % (42.0-52.0); Hemoglobin 14.4 g/dl (14.0-18.0); Imm Gran Abs Auto 0.02 X10*3/uL (0.00-0.03); Imm Gran Pct Auto 0.3 % (0.0-0.4); Lymphocytes Absolute Auto 1.0 X10*3/uL (1.2-4.9); Mean Corpuscular HGB Conc 34.1 g/dl (31.0-36.0); Mean Corpuscular Hemoglobin 30.6 pg (27.0-33.0); Mean Corpuscular Volume 89.6 fL (80.0-98.0); NRBC Abs Auto 0.000 X10*3/uL (0.0-0.012); NRBC Pct Auto 0.0 /100WBC (0.0-0.2); Platelet Count 244 X10*3/uL (160-400); Red Blood Count 4.71 X10*6/uL (4.60-5.80); White Blood Count 6.9 X10*3/uL (4.8-10.8)
[2025-04-14 08:44] LABS: Appearance Urine Clear; Glucose Urine UA Negative (Negative); PH 8.0 (5.0-9.0); Specific Gravity - Urine 1.015 (1.005-1.025)
[2025-04-14 09:20] LABS: Alanine Aminotransferase 26 U/L (0-40); Albumin Level 4.2 g/dL (3.5-5.0); Alkaline Phosphatase 104 U/L (39-117); Anion Gap 11 (12-20); Aspartate Amino Transferase 20 U/L (5-37); Blood Urea Nitrogen 13 mg/dL (9-16); Calcium 9.3 mg/dL (8.4-10.2); Carbon Dioxide 30 mmol/L (22-29); Chloride 106 mmol/L (96-108); Cholesterol 113 mg/dL (<200); Estimated Glomerular Filt Rate > 60; HDL Cholesterol 42 mg/dL (>40); Potassium 4.6 mmol/L (3.3-5.1); Sodium 142 mmol/L (135-145); Total Protein 6.2 g/dL (6.5-8.0); Triglycerides 61 mg/dL (<150)
[2025-04-14 09:33] LABS: Folate 5.5 ng/mL (> or = 4.0); Vitamin B12 1753 pg/mL (200-900)
== END 2025-04-14 07:05 | disposition home or self-care (01) ==
LOC: HO.LAB 07:04
PROVIDERS: PCP Internal Medicine; Visit Provider Internal Medicine
DX: R73.01 Impaired fasting glucose (principal); R30.0 Dysuria; E55.9 Vitamin D deficiency, unspecified; E53.8 Deficiency of other specified B group vitamins; E78.00 Pure hypercholesterolemia, unspecified; D64.9 Anemia, unspecified
CPT/HCPCS: 36415; 80053; 80061; 81003; 82306; 82607; 82746; 83036; 84443; 85025

== ENCOUNTER 2025-04-18 14:17 | Outpatient (AMB) | payer MEDICARE, MEDICAID, SELFPAY ==
--- NOTE | 2025-04-18 14:21 | MHC.PC.OV ---
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 Accompanied by: Self / Same As Patient Allergies tamsulosin Adverse Reaction (Intermediate, Verified 04/18/25 14:31) dizziness, headaches Medication List - Last Reconciled 04/18/25 by MARIA DOLORES Stern albuterol sulfate 90 mcg/actuation (Ventolin HFA) 2 puffs inhalation Q6H PRN albuterol sulfate 2.5 mg (3 mL) continuous nebulization QID PRN alfuzosin ER 10 mg PO DAILY amlodipine 5 mg PO DAILY aspirin 81 mg PO DAILY atorvastatin 80 mg PO DAILY bisacodyl (Gentle Laxative (bisacodyl)) 10 mg (2 x 5 mg) PO BEDTIME cholecalciferol (vitamin D3) (Vitamin D3) 25 mcg PO DAILY cyanocobalamin (vitamin B-12) 1,000 mcg PO DAILY docusate sodium 100 mg PO BEDTIME fluconazole 150 mg PO QWEEK 4 weeks igdifrpefdf-mmkbcmhls-otwghbte 200-62.5-25 mcg (Trelegy Ellipta) 1 ea inhalation DAILY isosorbide mononitrate ER 30 mg PO DAILY losartan 100 mg PO DAILY nitroglycerin 0.4 mg sublingual Q5M nystatin 500,000 units (5 mL) mucous membrane TID 10 days pantoprazole 40 mg PO DAILY polyethylene glycol 3350 (Miralax) 17 grams PO DAILY potassium citrate ER 20 mEq (2 x 10 mEq (1,080 mg)) PO BID 90 days roflumilast (Daliresp) 500 mcg PO DAILY Tobacco use date assessed: 04/18/25 Fall risk assessment: No Falls in past year Last assessed Fall Risk: 04/18/25 Dental Screening Dental Screen Date: 04/18/25 Did you have a dental visit in the last 12 months?: No Did you have a dental problem in the last 6 months where you did not have access to dental care?: No Was dental information given to patient?: No HPI follow up HPI Details The patient is a 65-year-old male presenting with numbness and tingling in the legs, dizziness, and concerns about medication management. The patient reports experiencing numbness and tingling in his legs, similar to the sensation of a limb falling asleep, which has been persistent and is associated with dizziness upon standing. He has visited the hospital and urgent care, where he was provided with a cane and diagnosed with peripheral neuropathy. The patient has not started the prescribed gabapentin due to concerns about side effects. The patient has been experiencing dizziness, particularly when standing, which he describes as a feeling of unsteadiness (reports that the dizziness is in his feet) rather than vertigo. He uses oxygen at home due to COPD, but still experiences dizziness, which he attributes to his leg issues. The patient is on vitamin B12 supplementation, which was initially prescribed due to low levels, but current levels are high, leading to a recommendation to reduce the frequency of intake. He has a history of COPD and uses a nebulizer and oxygen therapy at home. The patient has stopped using steroid inhalers due to recurrent oral thrush, which has persisted despite treatment with nystatin and mouth rinses. The patient has been prescribed medication for prostate enlargement, which he has not yet started due to concerns about dizziness. [facility] Medical History Oral thrush Allergic rhinitis Overweight (BMI 25.0-29.9) Constipation Atherosclerotic cardiovascular disease Swelling of left lower extremity Vitamin B12 deficiency GERD without esophagitis Anterior chest wall pain Mixed hyperlipidemia Primary insomnia Urinary frequency Neuropathy Vitamin D deficiency Osteoarthritis Lumbar degenerative disc disease Impaired fasting glucose Benign essential hypertension COPD (chronic obstructive pulmonary disease) Headache Epidermoid cyst Surgical History History of total right knee replacement History of cardiac cath History of colonoscopy Family History Father Colon cancer Mother Medical history unknown Social History Housing: Apartment Alcohol intake: former Patient Tobacco Use Status: Current everyday Tobacco user Tobacco use type: Cigarette Cigarettes Per Day: 15 Years Smoked: 30 +/- e-Cigarette/Vaping Use: Never Used Second Hand Smoke Exposure: Yes service: No Current occupational status: disabled Cognitive needs: No Hearing needs: Yes Vision needs: Yes (reading glasses) Questionnaire Thrive Questionnaire Date Thrive assessed: 01/11/25 I am a: Patient What is your living situation today?: I have a steady place to live Within the past 12 months, did the food you bought not last and you didn't have the money to get more?: Often true Within the past 12 months, did you worry whether your food would run out before you got money to buy more?: Never true Do you have trouble paying for medicines?: No Do you have trouble getting transportation to medical appointments?: No Do you have trouble paying your heating and electricity bill?: No Do you have trouble taking care of your child, family member or friend?: No Do you have trouble with day-to-day activities such as bathing, preparing meals, shopping, managing finances, etc.?: No Are you currently unemployed and looking for a job?: No Are you interested in more education?: No Please select the resources that you would like help with: None Currently or been in a relationship where the following occur: I choose not to answer THRIVE Score: 1 SUSIE-7 AMB Questionnaire SUSIE-7 Date SUSIE - 7 assessed: 01/11/25 Source: Developed by Drs. Ronald Vieira, Yomaira Craig, Sesar Stahl and colleagues, with an educational estelle from [employer]. Review of Systems Const Denies body aches, Denies chills, Denies fever(s), Denies headache(s) and Denies poor appetite Eyes Reports no additional complaints ENT Denies dysphagia, Reports dizziness ( the dizziness is not in my head, it's in my feet ), Denies headache(s) and Denies odynophagia Card Denies chest pain, Denies syncope, Denies edema, Denies irregular heart rhythm, Denies lightheadedness and Denies dyspnea Resp Denies cough and Denies dyspnea GI Denies abdominal pain, Denies constipation, Denies dysphagia, Denies diarrhea, Denies nausea, Denies odynophagia and Denies vomiting Reports no additional complaints Musc Reports abnormal gait (reports balance issues due to neuropathy), Reports numbness (bilateral lower extremities) and Reports tingling (bilateral lower extremities) Skin/Breast Reports system reviewed and no additional complaints, except as documented Neuro Reports abnormal gait (reports balance issues due to neuropathy), Reports dizziness ( the dizziness is not in my head, it's in my feet ), Denies syncope, Denies headache(s), Reports numbness (bilateral lower extremities) and Reports tingling (bilateral lower extremities) Psych Reports no additional complaints Physical exam (Primary Care) Vital Signs: Last Vital Signs Temp 97.3 F 04/18/25 14:22 Pulse 85 04/18/25 14:22 Resp 18 04/18/25 14:22 BP 122/60 04/18/25 14:22 Pulse Ox 94 04/18/25 14:22 Oxygen Delivery Method Room Air 04/18/25 14:22 BMI result Body Mass Index 29.1 Tobacco/Smoking Status: Tobacco use Status Tobacco use date assessed 04/18/25 04/18/25 14:29 Patient Tobacco Use Status Current everyday Tobacco 04/18/25 14:29 Tobacco use type Cigarette 04/18/25 14:29 e-Cigarette/Vaping Use Never Used 04/18/25 14:29 Thrive Assessment: Date of Thrive Assessment Date Thrive assessed 01/11/25 04/18/25 14:29 Currently or been in a relationship where the following occur: I choose not to answer Const General: cooperative, healthy appearing, comfortable and no acute distress Orientation/consciousness: patient oriented x3 HENMT Head: Yes normocephalic Ears: hearing grossly normal bilaterally General nose exam: Normal external nose present Eyes General: appearance normal, both eyes and all related structures Conjunctivae: conjunctivae normal Neck Neck: Yes full ROM and Yes no lymphadenopathy Resp Effort & Inspection: normal respiratory effort Auscultation: clear to auscultation bilaterally, no crackles, no rales, no rhonchi and no wheezes Cardio Rate: regular rate Rhythm: regular rhythm Skin General skin exam: no rashes or lesions noted Neuro General: patient oriented x3 and no focal motor deficits Cranial nerves: Yes Nystagmus not present Gait exam (Neuro): Normal gait present Motor exam (neuro): 5/5 motor strength present throughout Coordination: Romberg test negative Extrem General: Yes normal to inspection, Yes full ROM and No edema Psych Affect: normal affect Attitude: cooperative Insight: Good insight present (Psych) Judgement: Good judgement present (Psych) Results Reviewed Results Reviewed: Laboratory Tests 04/14/25 07:28 WBC 6.9 RBC 4.71 Hgb 14.4 Hct 42.2 MCV 89.6 MCH 30.6 MCHC 34.1 RDW 11.9 Plt Count 244 MPV 9.0 L Immature Gran % (Auto) 0.3 Sodium 142 Potassium 4.6 Chloride 106 Carbon Dioxide 30 H Anion Gap 11 L BUN 13 Creatinine 1.05 Estim Creat Clear Calc Not Reportable Estimated GFR > 60 Fasting Glucose 104 H Estimat Average Glucose 111 Hemoglobin A1c % 5.5 Calcium 9.3 Total Bilirubin 0.7 AST 20 ALT 26 Alkaline Phosphatase 104 Total Protein 6.2 L Albumin 4.2 Triglycerides 61 Cholesterol 113 LDL Cholesterol, Calc 59 HDL Cholesterol 42 Vitamin B12 1753 H 25-OH Vitamin D Total 46.0 Folate 5.5 TSH 1.02 Urine Color Yellow Urine Appearance Clear Urine pH 8.0 Ur Specific [place] 1.015 Urine Protein Negative Urine Glucose (UA) Negative Urine Ketones Negative Urine Blood Negative Urine Nitrite Negative Ur Leukocyte Esterase Negative Coding Level of Care Code Est Pt Level 4 (35215) Diagnoses Neuropathy G62.9 Chronic obstructive pulmonary disease, unspecified COPD type J44.9 COPD type: unspecified COPD Vitamin B12 deficiency E53.8 Impaired fasting glucose R73.01 Benign essential hypertension I10 Smoking F17.200 BPH loc w urin obs/LUTS N40.1 Oral thrush B37.0 Time Spent (min) 39 Assessment & Plan Assessment & Plan (1) Neuropathy: Code(s): G62.9 - Polyneuropathy, unspecified Category: Medical Plan: The patient has been diagnosed with peripheral neuropathy, which is contributing to his symptoms of numbness and tingling in the legs. Gabapentin was prescribed at 300 mg twice daily, but the patient has not started it due to concerns about side effects. A plan was discussed to start with a lower dose of 100 mg at bedtime to assess tolerance, with the possibility of increasing the dose if needed. Gabapentin 100mg tid was ordered. (2) COPD (chronic obstructive pulmonary disease): Code(s): J44.9 - Chronic obstructive pulmonary disease, unspecified Category: Medical Qualifiers: COPD type: unspecified COPD Qualified Code(s): J44.9 - Chronic obstructive pulmonary disease, unspecified Plan: The patient has a history of COPD and uses a nebulizer and oxygen therapy at home. He has stopped using steroid inhalers due to recurrent oral thrush, and a non-steroidal inhaler was recommended to avoid exacerbating the thrush by pulmonology but the patient has not been taking this medication due to concern of thrush. The medication was reordered for him and he was encouraged to start the medication improve his breathing. (3) Vitamin B12 deficiency: Code(s): E53.8 - Deficiency of other specified B group vitamins Category: Medical Plan: The patient is on vitamin B12 supplementation, initially prescribed for low levels, but current levels are high. It was recommended to reduce the frequency of intake to twice a week and recheck levels after follow-up. (4) Impaired fasting glucose: Code(s): R73.01 - Impaired fasting glucose Category: Medical Plan: Fasting glucose 104, A1c 5.5% Reinforced low sugar/carbohydrate diet We will continue to monitor fasting glucose and A1c (5) Benign essential hypertension: Code(s): I10 - Essential (primary) hypertension Category: Medical Plan: Blood pressure is 122/60 goal systolic less than 130 mm Hg Reinforced low-salt diet Continue losartan 100 mg daily, amlodipine 5 mg daily (6) Smoking: Code(s): F17.200 - Nicotine dependence, unspecified, uncomplicated Category: Social Hx Plan: Encouraged smoking cessation (7) BPH loc w urin obs/LUTS: Code(s): N40.1 - Benign prostatic hyperplasia with lower urinary tract symptoms Category: Medical Plan: Patient reports that he was prescribed a new medication by Urology but has not taken it as yet. Reports that he was concerned about his dizziness. When discussed dizziness with patient, he denies feeling dizzy in his head, reports that his dizziness his in his feet. Per patient, he has feet goes numb and he feels like he can not control them. Explained to the patient that this is related to his neuropathy and he was prescribed gabapentin but has not been taking it to releif the symptoms. (8) Oral thrush: Code(s): B37.0 - Candidal stomatitis Category: Medical Plan: Continue nystatin suspension t.i.d. Medications: New umeclidinium-vilanterol 62.5-25 mcg/actuation (Anoro Ellipta) 1 inh inhalation DAILY 60 ea 3RF gabapentin 100 mg PO TID 90 caps 0RF
[2025-04-18 14:22] VITALS: BP 122/60; PULSE 85; RESP 18; TEMP 36.3; O2SAT 94; BMI 29.1
--- OUTSIDE RECORDS SUMMARY | 2025-04-18 18:03 | XMS_ITS | Patient Health Record ---
Author Organization [facility] Address [address] [place] [address] Care Team Providers Care Assistant Director Of Admissions Name Role Phone Naif RUCKER, [place] Primary Care Provider Rustam Vega Jr Unavailable [...] Status Risk Notes Problem Colon cancer screening ([id number]) Colon cancer screening (V76.51) Active confirmed Plan Of Treatment Future Test Test Name Order Date COLONOSCOPY 08/30/2013 Insurance Providers Payer Name Payer Address Payer Phone Subscriber Number Group Number Insured Name Patient Relationship to Insured Coverage Start Date Coverage End Date [employer]/ 21-64 Yrs [address] [address] [place] [address] [id number] ANNA MCKEON Self - patient is the insured Medicare of [facility] [address] [place] [address] [id number] ANNA MCKEON Self - patient is the insured MEDICAID OF [facility] [address] [place] [address] [id number] ANNA MCKEON Self - patient is the insured Medical (General) History Medical History History ICD Code colonoscopy 11-07-2008 colon polyps asthma bronchitis elevated cholesterol hypertension Surgical History Surgery Date(Month/Year) knee arthroscopy
--- OUTSIDE RECORDS SUMMARY | 2025-04-18 18:03 | XMS_ITS | Clinical Summary ---
Author Organization [address] [facility] Address [address] [place] [address] Phone Care Team Providers Care Respiratory Manager Name Role Phone Sanju Disla MD [...] breath) 02/16/2025 Coronary artery disease invo lving campo coronary artery of campo heart without angina pectoris 07/11/2024 Assessment & [...] Acute on chronic hypoxic res piratory failure ([facility] V24, [facility] V28) 05/15/2024 COPD exacerbation ([facility] V24, [facility] V28) 04/2024 Inclusion cyst 05/08/2019 Lymphadenopathy 11/18/2017 [...] 08/10/2017 Chronic obstructive pulmonar y disease (COPD) ([facility] V24, [facility] V28) 02/11/2017 Resolved Problems Problem Noted Date Diagnosed Date Resolved Date Chest pain 07/03/2024 07/11/2024 Encounters Date Type Department Care Team Description 04/05/2025 11:15 AM EDT Office Visit Pulmonology [facility] [address] [address] [place] [phone] Jayshree Gibbs MD Acute on chronic hypoxic respiratory failure ([facility] V24, [facility] V28) (Primary Dx); Supplemental oxygen dependent; End stage chronic obstructive pulmonary disease ([facility] V24, [facility] V28); Acute on chronic respiratory failure with hypoxia and hypercapnia ([facility] V24, [facility] V28) 03/29/2025 9:29 AM EDT - 03/29/2025 1:15 PM EDT Emergency [facility] Emergency [address] [place] [phone] Near syncope (Primary Dx) Discharge Disposition: Home or Self Care 03/20/2025 12:14 PM EDT - 03/20/2025 4:24 PM EDT Emergency [facility] Emergency [address] [place] [phone] COPD exacerbation ([facility] V24, [facility] V28) (Primary Dx) Discharge Disposition: Home or Self Care 03/20/2025 Telephone Pulmonology - [place] [address] [phone] Jayshree Gibbs MD 03/07/2025 2:45 PM EDT Office Visit Pulmonology [facility] [address] [phone] Jayshree Gibbs MD Acute on chronic hypoxic respiratory failure ([facility] V24, [facility] V28) (Primary Dx); Supplemental oxygen dependent; Pulmonary emphysema, unspecified emphysema type ([facility] V24, [facility] V28) 02/15/2025 9:32 PM EDT - 02/16/2025 2:46 PM EDT Hospital Encounter [facility] Emergency [address] [place] [phone] Tomer Holland MD Ishtiaq, Rizwan, MD Bell, Alistair A, MD COPD exacerbation ([facility] V24, [facility] V28) (Primary Dx); Acute on chronic respiratory failure with hypoxia ([facility] V24, [facility] V28) Discharge Disposition: Home or Self Care [...] use Chronic obstructive pulmonar y disease (COPD) ([facility] V24, [facility] V28) 02/11/2017 DX:Chronic obstructi ve pulmonary disease (COPD) ([facility]) Supplemental oxygen dependent 08/10/2017 DX :Supplemental oxygen [...] 1:30 PM EST Office Visit Pulmonology - [place] [address] [place] [phone] Jayshree Gibbs MD [address] [facility] [address] [place] [address] 05/28/2025 7:30 AM EST Appointment [facility] CT Scan [address] [place] [phone] Health Maintenance Due Date Last [...] Signed Date: 03/29/2025 11:02 ET Workstation ID: [id number] Transcribed By: Self Edit Transcribed Date: 03/29/2025 [...] Signed Date: 03/29/2025 11:02 ET Workstation ID: [id number] Transcribed By: Self Edit Transcribed Date: 03/29/2025 11:00 ET us Philip HARRISON IMG XR PROCEDURES Final Resu lt * (ABNORMAL) CBC auto differential (03/29/2025 9:24 AM EDT) Only the most recent of4 resultswithin the time period is included. [facility] WBC 9.0 4.8 - 10.8 K/mcL LAB HEMETOLOGY METHOD 03/29/2025 10:04 AM [facility] RBC 4.60 4.50 - 5.50 M/mcL LAB HEMETOLOGY METHOD 03/29/2025 10:04 AM [facility] Hemoglobin 14.0 13.5 - 17.5 g/dL LAB HEMETOLOGY METHOD 03/29/2025 10:04 AM [facility] Hematocrit 41.0(L) 42.0 - 54.0 % LAB HEMETOLOGY METHOD 03/29/2025 10:04 AM [facility] MCV 89.3 79.0 - 98.0 FL LAB HEMETOLOGY METHOD 03/29/2025 10:04 AM [facility] MCH 30.5 27.0 - 32.0 pcg LAB HEMETOLOGY METHOD 03/29/2025 10:04 AM [facility] MCHC 34.1 32.0 - 37.0 g/dL LAB HEMETOLOGY METHOD 03/29/2025 10:04 AM [facility] RDW 12.4 11.0 - 15.0 % LAB HEMETOLOGY METHOD 03/29/2025 10:04 AM [facility] Platelets 215 130 - 400 K/mcL LAB HEMETOLOGY METHOD 03/29/2025 10:04 AM [facility] MPV 9.1 7.0 - 11.0 FL LAB HEMETOLOGY METHOD 03/29/2025 10:04 AM [facility] NRBC 0.0 <1.0 % LAB HEMETOLOGY METHOD 03/29/2025 10:04 AM [facility] NRBC Absolute 0.00 <0.10 K/mcL LAB HEMETOLOGY METHOD 03/29/2025 10:04 AM [facility] Neutrophils Relative 68.5 % LAB HEMETOLOGY METHOD 03/29/2025 10:04 AM [facility] Lymphocytes Relative 18.3 % LAB HEMETOLOGY METHOD 03/29/2025 10:04 AM [facility] Monocytes Relative 9.1 % LAB HEMETOLOGY METHOD 03/29/2025 10:04 AM [facility] Eosinophils Relative 3.0 % LAB HEMETOLOGY METHOD 03/29/2025 10:04 AM [facility] Basophils Relative 0.4 % LAB HEMETOLOGY METHOD 03/29/2025 10:04 AM [facility] Immature Granulocytes Relative 0.7 % LAB HEMETOLOGY METHOD 03/29/2025 10:04 AM [facility] Neutrophils Absolute 6.19 1.50 - 7.00 K/mcL LAB HEMETOLOGY METHOD 03/29/2025 10:04 AM [facility] Lymphocytes Absolute 1.65 1.00 - 5.00 K/mcL LAB HEMETOLOGY METHOD 03/29/2025 10:04 AM [facility] Monocytes Absolute 0.82 0.20 - 1.00 K/mcL LAB HEMETOLOGY METHOD 03/29/2025 10:04 AM [facility] Eosinophils Absolute 0.27 0.00 - 0.50 K/mcL LAB HEMETOLOGY METHOD 03/29/2025 10:04 AM EDT [facility] Basophils Absolute 0.04 0.00 - 0.20 K/[facility] LAB HEMETOLOGY METHOD 03/29/2025 10:04 AM EDT [facility] Immature Granulocytes Absolute 0.06(H) 0.00 - 0.03 K/[facility] LAB HEMETOLOGY METHOD 03/29/2025 10:04 AM EDT [facility] Blood Venous blood specimen / Unknown Venipuncture / Unknown 03/29/2025 9:24 AM EDT 03/29/2025 9:53 AM EDT Philip HARRISON LAB BLOOD ORDERABLES Final R [facility] Performing Organization Address City/[facility]/ZIP Co de Phone Number [facility] [address] [place] [address], [place] [phone] * Magnesium (03/29/2025 9:24 AM EDT) Only the most recent of2 resultswithin the time period is included. Magnesium 2.0 1.9 - 2.6 mg/dL LAB CHEMISTRY METHOD 03/29/2025 10:20 AM EDT [facility] Blood Venous blood specimen / Unknown Venipuncture / Unknown 03/29/2025 9:24 AM EDT 03/29/2025 9:53 AM EDT Philip HARRISON LAB BLOOD ORDERABLES Final R esult Performing Organization Address City/[facility]/ZIP Co de Phone Number [facility] [address] [place] [address], * (ABNORMAL) Basic metabolic panel (03/29/2025 9:24 AM EDT) Only the most recent of3 resultswithin the time period is included. Sodium 139 133 - 145 mmol/L LAB CHEMISTRY METHOD 03/29/2025 10:20 AM [facility] Potassium 4.3 3.5 - 5.5 mmol/L LAB CHEMISTRY METHOD 03/29/2025 10:20 AM [facility] Chloride 108 96 - 110 mmol/L LAB CHEMISTRY METHOD 03/29/2025 10:20 AM [facility] CO2 28 21 - 32 mmol/L LAB CHEMISTRY METHOD 03/29/2025 10:20 AM [facility] Anion Gap 3 3 - 11 LAB CHEMISTRY METHOD 03/29/2025 10:20 AM [facility] Glucose 108(H) 70 - 100 mg/dL LAB CHEMISTRY METHOD 03/29/2025 10:20 AM [facility] BUN 16 5 - 25 mg/dL LAB CHEMISTRY METHOD 03/29/2025 10:20 AM [facility] Creatinine 1.01 0.70 - 1.30 mg/dL LAB CHEMISTRY METHOD 03/29/2025 10:20 AM [facility] eGFR 82 >=60 mL/min/1. 73m2 LAB CHEMISTRY METHOD 03/29/2025 10:20 AM [facility] Comment:Calculation based on the Chronic Kidney Disease Epidemiology Collaboration (CKD-EPI) equation refit without adjustment for race. BUN/Creatinine Ratio 15.8 LAB CHEMISTRY METHOD 03/29/2025 10:20 AM [facility] Calcium 8.9 8.5 - 10.5 mg/dL LAB CHEMISTRY METHOD 03/29/2025 10:20 AM [facility] Blood Venous blood specimen / Unknown Venipuncture / Unknown 03/29/2025 9:24 AM EDT 03/29/2025 9:53 AM EDT us Philip HARRISON LAB BLOOD ORDERABLES Final R esult [facility] [address] [place] [address], * ECG 12 lead (03/29/2025 9:19 AM EDT) Only the most recent of3 resultswithin the time period is included. Pathologist [facility] Ventricular Rate ECG 91 BPM GEMUSE Atrial Rate 91 BPM GEMUSE P-R Interval 122 ms GEMUSE QRS Duration 140 ms GEMUSE Q-T Interval 382 ms GEMUSE QTc 469 ms GEMUSE P Wave Belcher 5 degrees GEMUSE R Belcher 88 degrees GEMUSE T Belcher 40 degrees GEMUSE ECG Interpretation Normal sinus [...] of2 resultswithin the time period is included. [facility] High Sensitivity Troponin I 7 <=79 ng/L [...] t [facility] [address] [place] [address], * Respiratory virus panel molecular study (03/20/2025 [...] PM EDT 03/20/2025 1:25 PM EDT Narrative [facility] - 03/20/2025 2:27 PM EDT Testing was performed using the [employer] Respiratory Pathogen PCR Assay. All results must [...] Result [facility] [address] [place] [address], * B-type natriuretic peptide (03/20/2025 12:24 PM EDT) Only the most recent of2 resultswithin the time period is included. BNP 75 <=100 pcg/mL LAB CHEMISTRY METHOD 03/20/2025 2:02 PM [facility] Blood Venous blood specimen / Unknown Venipuncture / Unknown 03/20/2025 12:24 PM EDT 03/20/2025 1:25 PM EDT us Rashida Rangel MD LAB BLOOD ORDERABLES Final Resul t [facility] [address] [place] [address], * (ABNORMAL) Comprehensive metabolic panel (02/15/2025 10:27 PM EDT) Pathologist [facility] Sodium 137 133 - 145 mmol/L LAB CHEMISTRY METHOD 02/15/2025 11:11 PM [facility] Potassium 4.1 3.5 - 5.5 mmol/L LAB CHEMISTRY METHOD 02/15/2025 11:11 PM [facility] Chloride 107 96 - 110 mmol/L LAB CHEMISTRY METHOD 02/15/2025 11:11 PM [facility] CO2 26 21 - 32 mmol/L LAB CHEMISTRY METHOD 02/15/2025 11:11 PM [facility] Anion Gap 4 3 - 11 LAB CHEMISTRY METHOD 02/15/2025 11:11 PM [facility] Glucose 108(H) 70 - 100 mg/dL LAB CHEMISTRY METHOD 02/15/2025 11:11 PM [facility] BUN 10 5 - 25 mg/dL LAB CHEMISTRY METHOD 02/15/2025 11:11 PM [facility] Creatinine 1.04 0.70 - 1.30 mg/dL LAB CHEMISTRY METHOD 02/15/2025 11:11 PM [facility] eGFR 79 >=60 mL/min/1. 73m2 LAB CHEMISTRY METHOD 02/15/2025 11:11 PM EDT [facility] Comment:Calculation based on the Chronic Kidney Disease Epidemiology Collaboration (CKD-EPI) equation refit without adjustment for race. BUN/Creatinine Ratio 9.6 LAB CHEMISTRY METHOD 02/15/2025 11:11 PM EDT [facility] Calcium 9.0 8.5 - 10.5 mg/dL LAB CHEMISTRY METHOD 02/15/2025 11:11 PM EDT [facility] AST (SGOT) 20 10 - 42 unit/L LAB CHEMISTRY METHOD 02/15/2025 11:11 PM [facility] ALT (SGPT) 27 10 - 60 unit/L LAB CHEMISTRY METHOD 02/15/2025 11:11 PM [facility] Alkaline Phosphatase 127(H) 42 - 121 unit/L LAB CHEMISTRY METHOD 02/15/2025 11:11 PM [facility] Total Protein 6.6 6.0 - 8.0 g/dL LAB CHEMISTRY METHOD 02/15/2025 11:11 PM [facility] Albumin 3.8 3.2 - 5.0 g/dL LAB CHEMISTRY METHOD 02/15/2025 11:11 PM [facility] Total Bilirubin 0.7 0.0 - 1.4 mg/dL LAB CHEMISTRY METHOD 02/15/2025 11:11 PM [facility] Blood Venous blood specimen / Unknown Venipuncture / Unknown 02/15/2025 10:27 PM EDT 02/15/2025 10:33 PM EDT us Tomer Holland MD LAB BLOOD ORDERABLES Final R esult [facility] [address] [place] [address], [place] [phone] * XR Chest 1 View (02/15/2025 10:20 PM EDT) Anatomical Region Laterality Modality Body Radiographic Isabel ging 02/16/2025 8:47 AM EDT Impressions 02/16/2025 8:48 AM EDT No acute findings. -------- FINAL REPORT -------- Dictated By: Raphael Denton Dictated Date: 02/16/2025 08:47 ET Assigned Physician: Raphael Denton Reviewed and Electronically Signed By: Raphael Denton Signed Date: 02/16/2025 08:48 ET Workstation ID: [id number] Transcribed By: Self Edit Transcribed Date: 02/16/2025 [...] Signed Date: 02/16/2025 08:48 ET Workstation ID: [id number] Transcribed By: Self Edit Transcribed Date: 02/16/2025 [...] PM EST Narrative 06/29/2023 6:57 AM EST [facility] Diagnostic Imaging Department [address] [place] [id number] Patient: ANNA JACKSON Jennifer /Age/Sex: 1960 - 63 - M Unit#: [id number] Location/Status: [facility] CLI Mnemonic/Ordering Site: [facility] Ordering Physician: SHARIF ALY MD CT Lung Screening Low Dose - 06/15/23 - 1351 Report Status:Signed Indication: Greater than 20 total pack-year smoking history, asymptomatic former smoker Technique: Low-dose CT scan of the chest obtained as a lung cancer screening study. Multiplanar reformatted images were obtained. Dose reduction technique: ASIR (Adaptive statistical iterative reconstruction) and/or AEC (automated exposure control) COMPARISON: [id number]. FINDINGS: Lack of intravenous contrast limits evaluation [...] Procedure Note Jhonny Patel MD - 08/10/2023 [facility] Diagnostic Imaging Department [address] [place] [id number] Patient: ANNA JACKSON Jennifer /Age/Sex: 1960 - 63 - M Unit#: [id number] Location/Status: [facility] CLI [facility] Ordering Physician: SHARIF ALY MD CT Lung Screening Low Dose - 06/15/23 - 1351 Report Status:Signed Indication: Greater than 20 total pack-year smoking history,asymptomatic former smoker Technique: Low-dose CT scan of the chest obtained as a lung cancerscreening study. Multiplanar reformatted images were obtained. Dose reductiontechnique: ASIR (Adaptive statistical iterative reconstruction) and/or AEC(automated exposure control) COMPARISON: [id number]. 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
== END 2025-04-18 15:10 | disposition home or self-care (01) ==
LOC: HO.HMCH 14:18
PROVIDERS: PCP Internal Medicine
DX: G62.9 Polyneuropathy, unspecified (principal); J44.9 Chronic obstructive pulmonary disease, unspecified; E53.8 Deficiency of other specified B group vitamins; R73.01 Impaired fasting glucose; I10 Essential (primary) hypertension; F17.200 Nicotine dependence, unspecified, uncomplicated; N40.1 Benign prostatic hyperplasia with lower urinary tract symptoms; B37.0 Candidal stomatitis

== ENCOUNTER → 2025-04-18 14:17 | Outpatient (BNVA) | payer MEDICARE, MEDICAID, SELFPAY | PROVIDERS: PCP Internal Medicine | DX: I10 Essential (primary) hypertension (principal); R20.0 Anesthesia of skin; R20.2 Paresthesia of skin; R42 Dizziness and giddiness; J44.9 Chronic obstructive pulmonary disease, unspecified; G62.9 Polyneuropathy, unspecified; E53.8 Deficiency of other specified B group vitamins; R73.01 Impaired fasting glucose; N40.1 Benign prostatic hyperplasia with lower urinary tract symptoms; B37.0 Candidal stomatitis; F17.210 Nicotine dependence, cigarettes, uncomplicated | CPT/HCPCS: 99212 ==

== ENCOUNTER 2025-04-26 13:23 | Outpatient (AMB) | payer MEDICARE, MEDICAID, SELFPAY ==
--- NOTE | 2025-04-26 13:51 | MHC.OFFVIS ---
Vital Signs 04/26/25 13:53 Height 6 ft Weight 218 lb 11.177 oz BMI 29.7 BP 110/62 Blood Pressure Location Lt brachial Position Sitting Pulse 79 Pulse Source Pulse Oximeter Intake Visit Reasons: 6m follow up Manager [employer] Required: No Accompanied by: Spouse Allergies tamsulosin Adverse Reaction (Intermediate, Verified 04/18/25 14:31) dizziness, headaches Medication List - Last Reconciled 04/26/25 by Esdras Thorpe MD albuterol sulfate 90 mcg/actuation (Ventolin HFA) 2 puffs inhalation Q6H PRN albuterol sulfate 2.5 mg (3 mL) continuous nebulization QID PRN alfuzosin ER 10 mg PO DAILY amlodipine 5 mg PO DAILY aspirin 81 mg PO DAILY atorvastatin 80 mg PO DAILY bisacodyl (Gentle Laxative (bisacodyl)) 10 mg (2 x 5 mg) PO BEDTIME cholecalciferol (vitamin D3) (Vitamin D3) 25 mcg PO DAILY cyanocobalamin (vitamin B-12) 1,000 mcg PO DAILY docusate sodium 100 mg PO BEDTIME fluconazole 150 mg PO QWEEK 4 weeks mcdvfrdophx-dbqacdgce-uyqyslob 200-62.5-25 mcg (Trelegy Ellipta) 1 ea inhalation DAILY gabapentin 100 mg PO TID isosorbide mononitrate ER 30 mg PO DAILY losartan 100 mg PO DAILY nitroglycerin 0.4 mg sublingual Q5M nystatin 500,000 units (5 mL) mucous membrane TID 10 days pantoprazole 40 mg PO DAILY polyethylene glycol 3350 (Miralax) 17 grams PO DAILY potassium citrate ER 20 mEq (2 x 10 mEq (1,080 mg)) PO BID 90 days roflumilast (Daliresp) 500 mcg PO DAILY umeclidinium-vilanterol 62.5-25 mcg/actuation (Anoro Ellipta) 1 inh inhalation DAILY HPI Comments Details: Toby returns for follow-up regarding coronary artery disease. He also has advanced COPD. He has a history of chronic total occlusion right coronary artery. Has significant COPD at baseline. Overall, he is feeling just about the same as before. No clear cardiac symptoms. Also, he has stopped smoking in the last few months. [facility] Medical History Oral thrush Allergic rhinitis Overweight (BMI 25.0-29.9) Constipation Atherosclerotic cardiovascular disease Swelling of left lower extremity Vitamin B12 deficiency GERD without esophagitis Anterior chest wall pain Mixed hyperlipidemia Primary insomnia Urinary frequency Neuropathy Vitamin D deficiency Osteoarthritis Lumbar degenerative disc disease Impaired fasting glucose Benign essential hypertension COPD (chronic obstructive pulmonary disease) Headache Epidermoid cyst Surgical History History of total right knee replacement History of cardiac cath History of colonoscopy Family History Father Colon cancer Mother Medical history unknown Social History Housing: Apartment Alcohol intake: former Patient Tobacco Use Status: Current everyday Tobacco user Tobacco use type: Cigarette Cigarettes Per Day: 15 Years Smoked: 30 +/- e-Cigarette/Vaping Use: Never Used Second Hand Smoke Exposure: Yes service: No Current occupational status: disabled Cognitive needs: No Hearing needs: Yes Vision needs: Yes (reading glasses) Review of Systems Const Denies chills, Denies fatigue, Denies fever(s), Denies frequent falls, Denies weakness, Denies weight gain and Denies weight loss ENT Denies dizziness Card Denies chest pain, Denies leg edema, Denies lightheadedness, Denies palpitations, Denies dyspnea and Denies dyspnea on exertion Resp Denies cough, Denies dyspnea and Denies dyspnea on exertion GI Denies hematochezia Musc Denies abnormal gait, Denies muscle weakness, Denies numbness, Denies radiating pain into limb and Denies tingling Neuro Denies abnormal gait, Denies dizziness, Denies frequent falls, Denies numbness, Denies tingling and Denies weakness Endo Denies fatigue and Denies palpitations Physical Exam Vital Signs: Last Vital Signs Pulse 79 04/26/25 13:53 BP 110/62 04/26/25 13:53 BMI result Body Mass Index 29.7 Const General: comfortable and no acute distress Orientation/consciousness: patient oriented x3 HEENT Other: Unremarkable Head: Yes normal to inspection Neck Neck: Yes normal visual inspection Chest Chest palpation & inspection: normal inspection of the chest Resp Auscultation: wheezes and diminished lung sounds Cardio Palpation: normal PMI Heart sounds: S1 normal heart sound present, S2 normal heart sound present, no gallops, no murmurs and no rubs GI Palpation (GI): Soft to palpation Back/Spine/Pelvis Other: unremarkable Skin General skin exam: no rashes or lesions noted Neuro General: patient oriented x3 Extrem General: Yes normal to inspection Psych Mental Status: mental status grossly normal Assessment & Plan Assessment & Plan (1) Atherosclerotic cardiovascular disease: Code(s): I25.10 - Atherosclerotic heart disease of curyung coronary artery without angina pectoris Category: Medical (2) Essential hypertension: Code(s): I10 - Essential (primary) hypertension Category: Medical (3) Other and unspecified hyperlipidemia: Code(s): E78.5 - Hyperlipidemia, unspecified Category: Medical (4) Smoking: Code(s): F17.200 - Nicotine dependence, unspecified, uncomplicated Category: Social Hx (5) Morbid obesity: Code(s): E66.01 - Morbid (severe) obesity due to excess calories Category: Medical (6) COPD (chronic obstructive pulmonary disease): Code(s): J44.9 - Chronic obstructive pulmonary disease, unspecified Category: Medical Qualifiers: COPD type: unspecified COPD Qualified Code(s): J44.9 - Chronic obstructive pulmonary disease, unspecified Plan Cardiac studies reviewed. Cardiac catheterization 2023-moderate right coronary artery disease; distal RCA with 100% stenosis; chronic total occlusion. Minimal irregularities in left main; mild diffuse disease in the LAD. Normal circumflex. Medical management recommended. Echocardiogram from [facility] with LVEF of 50-55%. Lateral wall hypokinesis. Overall, treat for stable coronary disease. Continue aspirin, long-acting nitrates, amlodipine, losartan, statins. For meds, continue aspirin, long-acting nitrates, amlodipine, losartan, statins. Most recent LDL 59 mg/dL. Triglycerides 61 mg/dL. Coding Level of Care Code Est Pt Level 4 (86271) Complex EM visit Add On G2211 Diagnoses Atherosclerotic cardiovascular disease I25.10 Essential hypertension I10 Other and unspecified hyperlipidemia E78.5 Smoking F17.200 Morbid obesity E66.01 Chronic obstructive pulmonary disease, unspecified COPD type J44.9 COPD type: unspecified COPD
[2025-04-26 13:53] VITALS: BP 110/62; PULSE 79; BMI 29.7
--- OUTSIDE RECORDS SUMMARY | 2025-04-26 16:58 | XMS_ITS | Clinical Summary ---
Author Organization [facility] Address [address] [place] [address] Phone Care Team Providers Care Embalmer Apprentice Name Role Phone Sanju Disla MD Primary [...] (one) time each day. 1 each 03/09/20 026 Active Active Problems Problem Noted Date Diagnosed Date SOB (shortness of breath) 02/16/2025 Coronary artery disease invo lving [place] coronary artery of [place] heart without angina pectoris 07/11/2024 Assessment & [...] Acute on chronic hypoxic res piratory failure ([facility] V24, [facility] V28) 05/15/2024 COPD exacerbation ([facility] V24, [facility] V28) 04/2024 [...] 08/10/2017 Chronic obstructive pulmonar y disease (COPD) ([facility] V24, [facility] V28) 02/11/2017 Resolved Problems Problem Noted Date Diagnosed Date Resolved Date Chest pain 07/03/2024 07/11/2024 Encounters Date Type Department Care Team Description 04/05/2025 11:15 AM EDT Office Visit Pulmonology [address] [phone] Jayshree Gibbs MD Acute on chronic hypoxic respiratory failure ([facility] V24, [facility] V28) (Primary Dx); Supplemental oxygen dependent; End stage chronic obstructive pulmonary disease ([facility] V24, [facility] V28); Acute on chronic respiratory failure with hypoxia and hypercapnia ([facility] V24, [facility] V28) 03/29/2025 9:29 AM EDT - 03/29/2025 1:15 PM EDT Emergency [facility] Emergency [address] [place] [address] Near syncope (Primary Dx) Discharge Disposition: Home or Self Care 03/20/2025 12:14 PM EDT - 03/20/2025 4:24 PM EDT Emergency [facility] Emergency [address] [place] [address] COPD exacerbation ([facility] V24, [facility] V28) (Primary Dx) Discharge Disposition: Home or Self Care 03/20/2025 Telephone Pulmonology [facility] [address] [phone] Jayshree Gibbs MD 03/07/2025 2:45 PM EDT Office Visit Pulmonology [address] [phone] Jayshree Gibbs MD Acute on chronic hypoxic respiratory failure ([facility] V24, [facility] V28) (Primary Dx); Supplemental oxygen dependent; Pulmonary emphysema, unspecified emphysema type ([facility] V24, [facility] [facility] V28) 02/15/2025 9:32 PM EDT - 02/16/2025 2:46 PM EDT Hospital Encounter [facility] [address] [place] [address] Tomer Holland MD Ishtiaq, Rizwan, MD Bell, Alistair A, MD COPD exacerbation ([facility] [place] V24, [facility] [place] V28) (Primary Dx); Acute on chronic respiratory failure with hypoxia ([facility] [place] V24, [facility] [place] V28) Discharge Disposition: Home or Self Care from Last 3 Months Immunizations Immunization Administration Dates Next Due Influenza Quadravalent, MDCK , 0.5ml, preservative free (Flucelvax) 6mo and older 04/28/2022 Surgical History Surgery Date Site/Laterality Comments KNEE SURGERY PROCEDURE: HISTORICAL KNEE SURGERY DENTAL SURGERY PROCEDURE: AL UNLISTED PROCEDURE DENTOALVEOLAR STRUCTURES Medical History Medical History Date Comments Arthritis DX:Arthritis Cholelithiasis 08/10/2017 DX:Cholelithiasi s Diverticulosis 08/10/2017 DX:Diverticulosi s Hyperlipidemia 08/10/2017 DX:Hyperlipidemi a Tobacco use 02/11/2017 DX:Tobacco use Chronic obstructive pulmonar y disease (COPD) ([facility] V24, [facility] [place] V28) 02/11/2017 DX:Chronic obstructi [...] 1:30 PM EST Office Visit Pulmonology - [place] [address] [phone] Jayshree Gibbs MD 175 [facility] [address] [place] [address] 05/28/2025 7:30 AM EST Appointment [facility] CT Scan [address] [place] [phone] Health Maintenance Due Date Last Done Comments [...] ECG 12-LEAD STAT 02/15/2025 10:19 PM EDT [facility] 30-74 MINUTES Routine 02/15/2025 9:22 [...] Signed Date: 03/29/2025 11:02 ET Workstation ID: [id number] Transcribed By: Self Edit Transcribed Date: 03/29/2025 [...] Signed Date: 03/29/2025 11:02 ET Workstation ID: [id number] Transcribed By: Self Edit Transcribed Date: 03/29/2025 11:00 ET us Philip HARRISON IMG XR PROCEDURES Final Resu lt * (ABNORMAL) CBC auto differential (03/29/2025 9:24 AM EDT) Only the most recent of4 resultswithin the time period is included. WBC 9.0 4.8 - 10.8 K/[facility] LAB HEMETOLOGY METHOD 03/29/2025 10:04 AM [facility] RBC 4.60 4.50 - 5.50 M/mcL LAB HEMETOLOGY METHOD 03/29/2025 10:04 AM [facility] LAB Hemoglobin 14.0 13.5 - 17.5 g/dL LAB HEMETOLOGY METHOD 03/29/2025 10:04 AM [facility] LAB Hematocrit 41.0(L) 42.0 - 54.0 % LAB HEMETOLOGY METHOD 03/29/2025 10:04 AM [facility] MCV 89.3 79.0 - 98.0 FL LAB HEMETOLOGY METHOD 03/29/2025 10:04 AM [facility] LAB MCH 30.5 27.0 - 32.0 pcg LAB HEMETOLOGY METHOD 03/29/2025 10:04 AM [facility] LAB MCHC 34.1 32.0 - 37.0 g/dL LAB HEMETOLOGY METHOD 03/29/2025 10:04 AM [facility] RDW 12.4 11.0 - 15.0 % LAB HEMETOLOGY METHOD 03/29/2025 10:04 AM [facility] Platelets 215 130 - 400 K/mcL LAB HEMETOLOGY METHOD 03/29/2025 10:04 AM [facility] LAB MPV 9.1 7.0 - 11.0 FL LAB HEMETOLOGY METHOD 03/29/2025 10:04 AM [facility] NRBC 0.0 <1.0 % LAB HEMETOLOGY METHOD 03/29/2025 10:04 AM [facility] NRBC Absolute 0.00 <0.10 K/mcL LAB HEMETOLOGY METHOD 03/29/2025 10:04 AM [facility] Neutrophils Relative 68.5 % LAB HEMETOLOGY METHOD 03/29/2025 10:04 AM [facility] Lymphocytes Relative 18.3 % LAB HEMETOLOGY METHOD 03/29/2025 10:04 AM [facility] Monocytes Relative 9.1 % LAB HEMETOLOGY METHOD 03/29/2025 10:04 AM [facility] Eosinophils Relative 3.0 % LAB HEMETOLOGY METHOD 03/29/2025 10:04 AM [facility] Basophils Relative 0.4 % LAB HEMETOLOGY METHOD 03/29/2025 10:04 AM [facility] Immature Granulocytes Relative 0.7 % LAB HEMETOLOGY METHOD 03/29/2025 10:04 AM [facility] Neutrophils Absolute 6.19 1.50 - 7.00 K/mcL LAB HEMETOLOGY METHOD 03/29/2025 10:04 AM [facility] Lymphocytes Absolute 1.65 1.00 - 5.00 K/mcL LAB HEMETOLOGY METHOD 03/29/2025 10:04 AM [facility] Monocytes Absolute 0.82 0.20 - 1.00 K/mcL LAB HEMETOLOGY METHOD 03/29/2025 10:04 AM [facility] LAB Eosinophils Absolute 0.27 0.00 - 0.50 K/mcL LAB HEMETOLOGY METHOD 03/29/2025 10:04 AM [facility] LAB Basophils Absolute 0.04 0.00 - 0.20 K/mcL LAB HEMETOLOGY METHOD 03/29/2025 10:04 AM [facility] Immature Granulocytes Absolute 0.06(H) 0.00 - 0.03 K/mcL LAB HEMETOLOGY METHOD 03/29/2025 10:04 AM [facility] Blood Venous blood specimen / Unknown Venipuncture / Unknown 03/29/2025 9:24 AM EDT 03/29/2025 9:53 AM EDT Philip HARRISON LAB BLOOD ORDERABLES Final R esult Performing Organization Address City/[facility]/ZIP Co de Phone Number [facility] [address] [place] [address], [place] [phone] * Magnesium (03/29/2025 9:24 AM EDT) Only the most recent of2 resultswithin the time period is included. [facility] Magnesium 2.0 1.9 - 2.6 mg/dL LAB CHEMISTRY METHOD 03/29/2025 10:20 AM EDT [facility] Blood Venous blood specimen / Unknown Venipuncture / Unknown 03/29/2025 9:24 AM EDT 03/29/2025 9:53 AM EDT Philip HARRISON LAB BLOOD ORDERABLES Final R esult Performing Organization Address [facility]/ZIP Co de Phone Number [facility] [address] [place] [address], [place] [phone] * (ABNORMAL) Basic metabolic panel (03/29/2025 9:24 AM EDT) Only the most recent of3 resultswithin the time period is included. [facility] Sodium 139 133 - 145 mmol/L LAB CHEMISTRY METHOD 03/29/2025 10:20 AM T [facility] Potassium 4.3 3.5 - 5.5 mmol/L LAB CHEMISTRY METHOD 03/29/2025 10:20 AM EDT [facility] Chloride 108 96 - 110 mmol/L LAB CHEMISTRY METHOD 03/29/2025 10:20 AM EDT [facility] CO2 28 21 - 32 mmol/L LAB CHEMISTRY METHOD 03/29/2025 10:20 AM EDT [facility] Anion Gap 3 3 - 11 LAB CHEMISTRY METHOD 03/29/2025 10:20 AM EDT [facility] Glucose 108(H) 70 - 100 mg/dL LAB CHEMISTRY METHOD 03/29/2025 10:20 AM EDT [facility] BUN 16 5 - 25 mg/dL LAB CHEMISTRY METHOD 03/29/2025 10:20 AM EDT [facility] Creatinine 1.01 0.70 - 1.30 mg/dL LAB CHEMISTRY METHOD 03/29/2025 10:20 AM EDT [facility] eGFR 82 >=60 mL/min/1. 73m2 LAB CHEMISTRY METHOD 03/29/2025 10:20 AM EDT [facility] Comment:Calculation based on the Chronic Kidney Disease Epidemiology Collaboration (CKD-EPI) equation refit without adjustment for race. BUN/Creatinine Ratio 15.8 LAB CHEMISTRY METHOD 03/29/2025 10:20 AM EDT [facility] Calcium 8.9 8.5 - 10.5 mg/dL LAB CHEMISTRY METHOD 03/29/2025 10:20 AM EDT [facility] Blood Venous blood specimen / Unknown Venipuncture / Unknown 03/29/2025 9:24 AM EDT 03/29/2025 9:53 AM EDT us Philip HARRISON LAB BLOOD ORDERABLES Final R esult [facility] [address] [place] [address], * ECG 12 lead (03/29/2025 9:19 AM EDT) Only the most recent of3 resultswithin the time period is included. Ventricular Rate ECG 91 BPM GEMUSE Atrial Rate 91 BPM GEMUSE P-R Interval 122 ms GEMUSE QRS Duration 140 ms GEMUSE Q-T Interval 382 ms GEMUSE QTc 469 ms GEMUSE P Wave [place] 5 degrees GEMUSE R [place] 88 degrees GEMUSE T [place] 40 degrees GEMUSE ECG Interpretation Normal sinus rhythm Right bundle branch block Abnormal ECG When compared with ECG of 20-MAR-2025 12:21, Premature supraventricular complexes are no longer Present Confirmed by Layton DEE JOHN ([id number]) on 03/29/2025 1:19:46 PM GEMUSE 03/29/2025 9:19 AM EDT 03/29/2025 1:19 PM EDT Philip HARRISON ECG ORDERABLES Final Result Performing Organization Address City/[facility] de Phone Number GEMUSE * Troponin I high sensitivity (03/20/2025 1:23 PM EDT) Only the most recent of2 resultswithin the time period is included. [facility] High Sensitivity Troponin I 7 <=79 ng/L LAB CHEMISTRY METHOD 03/20/2025 2:19 PM EDT [facility] Blood Venous blood specimen / Unknown Venipuncture / Unknown 03/20/2025 1:23 PM EDT 03/20/2025 2:19 PM EDT Narrative [facility] - 03/20/2025 2:19 PM EDT High levels of biotin in samples may falsely decrease hsTroponin values. Use caution when interpreting hsTroponin results in patients taking biotin who exhibit renal impairment (eGFR <60) or in patients taking more than 20 mg/day of biotin. Rashida Rangel MD LAB BLOOD ORDERABLES Final Resul t Performing Organization Address [facility] Co de Phone Number [facility] [address] [place] [address], * Respiratory virus panel molecular study (03/20/2025 12:26 PM EDT) Only the most recent of2 resultswithin the time period is included. [facility] Adenovirus Detection by PCR Not Detected Not Detected LAB MICROBIOLOGY METHOD 03/20/2025 2:27 PM EDT [facility] Influenza A PCR Not Detected Not Detected LAB MICROBIOLOGY METHOD 03/20/2025 2:27 PM EDT [facility] Influenza B PCR Not Detected Not Detected LAB MICROBIOLOGY METHOD 03/20/2025 2:27 PM EDT [facility] Coronavirus 229E Not Detected Not Detected LAB MICROBIOLOGY METHOD 03/20/2025 2:27 PM EDT [facility] Coronavirus HKU1 Not Detected Not Detected LAB MICROBIOLOGY METHOD 03/20/2025 2:27 PM EDT [facility] Coronavirus OC43 Not Detected Not Detected LAB MICROBIOLOGY METHOD 03/20/2025 2:27 PM EDT [facility] Coronavirus NL63 Not Detected Not Detected LAB MICROBIOLOGY METHOD 03/20/2025 2:27 PM EDT [facility] Parainfluenza Virus 1 Not Detected Not Detected LAB MICROBIOLOGY METHOD 03/20/2025 2:27 PM EDT [facility] Parainfluenza Virus 2 Not Detected Not Detected LAB MICROBIOLOGY METHOD 03/20/2025 2:27 PM EDT [facility] Parainfluenza Virus 3 Not Detected Not Detected LAB MICROBIOLOGY METHOD 03/20/2025 2:27 PM EDT [facility] Parainfluenza Virus 4 Not Detected Not Detected LAB MICROBIOLOGY METHOD 03/20/2025 2:27 PM EDT [facility] RSV PCR Not Detected Not Detected LAB MICROBIOLOGY METHOD 03/20/2025 2:27 PM EDT [facility] Human Metapneumovirus A and B Not Detected Not Detected LAB MICROBIOLOGY METHOD 03/20/2025 2:27 PM EDT [facility] Rhinovirus/Entero virus Not Detected Not Detected LAB MICROBIOLOGY METHOD 03/20/2025 2:27 PM EDT [facility] Bordetella pertussis Not Detected Not Detected LAB MICROBIOLOGY METHOD 03/20/2025 2:27 PM EDT [facility] Bordetella parapertussis Not Detected Not Detected LAB MICROBIOLOGY METHOD 03/20/2025 2:27 PM EDT [facility] Mycoplasma pneumo by PCR Not Detected Not Detected LAB MICROBIOLOGY METHOD 03/20/2025 2:27 PM EDT [facility] Chlamydia pneumoniae Not Detected Not Detected LAB MICROBIOLOGY METHOD 03/20/2025 2:27 PM EDT [facility] SARS COV-2 Not Detected Not Detected LAB MICROBIOLOGY METHOD 03/20/2025 2:27 PM EDT [facility] Swab Both anterior nares / Unknown Non-blood Collection / Unknown 03/20/2025 12:26 PM EDT 03/20/2025 1:25 PM EDT Narrative [facility] - 03/20/2025 2:27 PM EDT Testing was performed using the [employer] Respiratory Pathogen PCR Assay. All results must [...] MICROBIOLOGY - GENERAL ORDER TAYLOR Final Result Performing Organization Address City/[facility]/ZIP Co de Phone Number [facility] [address] [place] [address], * B-type natriuretic peptide (03/20/2025 12:24 PM EDT) Only the most recent of2 resultswithin the time period is included. BNP 75 <=100 pcg/mL LAB CHEMISTRY METHOD 03/20/2025 2:02 PM EDT [facility] Blood Venous blood specimen / Unknown Venipuncture / Unknown 03/20/2025 12:24 PM EDT 03/20/2025 1:25 PM EDT us Rashida Rangel MD LAB BLOOD ORDERABLES Final Resul t [facility] [address] [place] [address], [place] [phone] * (ABNORMAL) Comprehensive metabolic panel (02/15/2025 10:27 PM EDT) Sodium 137 133 - 145 mmol/L LAB CHEMISTRY METHOD 02/15/2025 11:11 PM [facility] Potassium 4.1 3.5 - 5.5 mmol/L LAB CHEMISTRY METHOD 02/15/2025 11:11 PM [facility] Chloride 107 96 - 110 mmol/L LAB CHEMISTRY METHOD 02/15/2025 11:11 PM [facility] CO2 26 21 - 32 mmol/L LAB CHEMISTRY METHOD 02/15/2025 11:11 PM [facility] Anion Gap 4 3 - 11 LAB CHEMISTRY METHOD 02/15/2025 11:11 PM [facility] Glucose 108(H) 70 - 100 mg/dL LAB CHEMISTRY METHOD 02/15/2025 11:11 PM [facility] BUN 10 5 - 25 mg/dL LAB CHEMISTRY METHOD 02/15/2025 11:11 PM [facility] Creatinine 1.04 0.70 - 1.30 mg/dL LAB CHEMISTRY METHOD 02/15/2025 11:11 PM [facility] eGFR 79 >=60 mL/min/1. 73m2 LAB CHEMISTRY METHOD 02/15/2025 11:11 PM [facility] Comment:Calculation based on the Chronic Kidney Disease Epidemiology Collaboration (CKD-EPI) equation refit without adjustment for race. BUN/Creatinine Ratio 9.6 LAB CHEMISTRY METHOD 02/15/2025 11:11 PM [facility] Calcium 9.0 8.5 - 10.5 mg/dL LAB CHEMISTRY METHOD 02/15/2025 11:11 PM [facility] AST (SGOT) 20 10 - 42 unit/L LAB CHEMISTRY METHOD 02/15/2025 11:11 PM EDT [facility] ALT (SGPT) 27 10 - 60 unit/L LAB CHEMISTRY METHOD 02/15/2025 11:11 PM EDT [facility] Alkaline Phosphatase 127(H) 42 - 121 unit/L LAB CHEMISTRY METHOD 02/15/2025 11:11 PM EDT [facility] Total Protein 6.6 6.0 - 8.0 g/dL LAB CHEMISTRY METHOD 02/15/2025 11:11 PM EDT [facility] Albumin 3.8 3.2 - 5.0 g/dL LAB CHEMISTRY METHOD 02/15/2025 11:11 PM EDT [facility] Total Bilirubin 0.7 0.0 - 1.4 mg/dL LAB CHEMISTRY METHOD 02/15/2025 11:11 PM EDT [facility] Blood Venous blood specimen / Unknown Venipuncture / Unknown 02/15/2025 10:27 PM EDT 02/15/2025 10:33 PM EDT us Tomer Holland MD LAB BLOOD ORDERABLES Final R esult [facility] [address] [place] [address], [place] [phone] * XR Chest 1 View (02/15/2025 10:20 PM EDT) Anatomical Region Laterality Modality Body Radiographic Isabel ging 02/16/2025 8:47 AM EDT Impressions 02/16/2025 8:48 AM EDT No acute findings. -------- FINAL REPORT -------- Dictated By: Rahpael Denton Dictated Date: 02/16/2025 08:47 ET Assigned Physician: Raphael Denton Reviewed and Electronically Signed By: Rapheal Denton Signed Date: 02/16/2025 08:48 ET Workstation ID: [id number] Transcribed By: Self Edit Transcribed Date: 02/16/2025 [...] Raphael Denton Reviewed and Electronically Signed By: Rapahel Denton Signed Date: 02/16/2025 08:48 ET Workstation ID: [id number] Transcribed By: Self Edit Transcribed Date: 02/16/2025 08:47 ET us Tomer Holland MD IMG XR PROCEDURES Final Resu lt * AL CRITICAL CARE 30-74 MINUTES (02/15/2025 9:22 PM [...] [facility] Diagnostic Imaging Department [address] [place], [place] [id number] Patient: ANNA JACKSON Jennifer /Age/Sex: 1960 - 63 - M Unit#: [id number] Location/Status: [facility] Mnemonic/Ordering Site: [facility] Ordering Physician: SHARIF ALY MD CT Lung Screening Low Dose - 06/15/23 - 5709 Report Status:Signed Indication: Greater than 20 total pack-year smoking history, asymptomatic former smoker Technique: Low-dose CT scan of the chest obtained as a lung cancer screening study. Multiplanar reformatted images were obtained. Dose reduction technique: ASIR (Adaptive statistical iterative reconstruction) and/or AEC (automated exposure control) COMPARISON: [id number]. FINDINGS: Lack of intravenous contrast limits evaluation [...] [facility] Diagnostic Imaging Department [address] [place] [address] Patient: ANNA JACKSON /Age/Sex: 1960 - 63 - M Unit#: [id number] Location/Status: SPDICATLS/REG CLI Mnemonic/Ordering Site: [facility] Ordering Physician: SHARIF ALY MD CT Lung Screening Low Dose - 06/15/23 - 1351 Report Status:Signed Indication: Greater than 20 total pack-year smoking history,asymptomatic former smoker Technique: Low-dose CT scan of the chest obtained as a lung cancerscreening study. Multiplanar reformatted images were obtained. Dose reductiontechnique: ASIR (Adaptive statistical iterative reconstruction) and/or AEC(automated exposure control) COMPARISON: [id number]. FINDINGS: Lack of intravenous contrast limits evaluation [...] Documents on File Type Date Recorded Patient Bill Of Materials Clerk Expl anation Advance Directives and Living Will [...] First Alternate Health Care Agent Care Teams Embalmer Apprentice Relationship Specialty Start Date End Date Sanju Disla MD [address] [place] [address] Dr [address] [place] PCP - General 05/07/1997
--- OUTSIDE RECORDS SUMMARY | 2025-04-26 16:58 | XMS_ITS | Patient Health Record ---
Author Organization [facility] Address [address] [place] [address] Care Team Providers Care Child Advocate Name Role Phone Naif RUCKER, [place] Primary Care Provider Rustam Vega Jr Unavailable [...] Status Risk Notes Problem Colon cancer screening (349776471) Colon cancer screening (V76.51) Active confirmed Plan Of Treatment Future Test Test Name Order Date COLONOSCOPY 08/30/2013 Insurance Providers Payer Name Payer Address Payer Phone Subscriber Number Group Number Insured Name Patient Relationship to Insured Coverage Start Date Coverage End Date [employer]/ 21-64 Yrs [address] [address] [place] [address] [id number] ANNA MCKEON Self - patient is the insured Medicare of [facility] [address] [place] [address] [id number] ANNA MCKEON Self - patient is the insured MEDICAID OF [facility] [address] [place] [address] [id number] ANNA MCKEON Self - patient is the insured Medical (General) History Medical History History ICD Code colonoscopy 11-07-2008 colon polyps asthma bronchitis elevated cholesterol hypertension Surgical History Surgery Date(Month/Year) knee arthroscopy
== END 2025-04-26 14:17 | disposition home or self-care (01) ==
LOC: HO.HCS 13:24
PROVIDERS: PCP Internal Medicine; Visit Provider Internal Medicine
DX: I25.10 Atherosclerotic heart disease of native coronary artery without angina pectoris (principal); I10 Essential (primary) hypertension; E78.5 Hyperlipidemia, unspecified; F17.200 Nicotine dependence, unspecified, uncomplicated; E66.01 Morbid (severe) obesity due to excess calories; J44.9 Chronic obstructive pulmonary disease, unspecified
CPT/HCPCS: 99214; G2211

== ENCOUNTER → 2025-04-26 13:23 | Outpatient (BNVA) | payer MEDICARE, MEDICAID, SELFPAY | PROVIDERS: PCP Internal Medicine; Visit Provider Internal Medicine | DX: Z71.2 Person consulting for explanation of examination or test findings (principal); I25.10 Atherosclerotic heart disease of native coronary artery without angina pectoris; I10 Essential (primary) hypertension; E78.5 Hyperlipidemia, unspecified; F17.200 Nicotine dependence, unspecified, uncomplicated; E66.01 Morbid (severe) obesity due to excess calories; J44.9 Chronic obstructive pulmonary disease, unspecified | CPT/HCPCS: 99212 ==

== ENCOUNTER 2025-05-14 15:30 | Outpatient (AMB) | payer MEDICARE, MEDICAID, SELFPAY ==
--- OUTSIDE RECORDS SUMMARY | 2025-05-09 13:30 | XMS_ITS | Encounter Summary ---
Author Organization [facility] Address [address] [place] [address] Care Team Providers Care Rn Nicu Name Role Phone Sanju Disla MD Primary Care Provider Reason for Visit * Reason Comments COPD F/u COPD Encounter Details Date Type Department Care Team (Late st Contact Info) Description 05/09/2025 1:30 PM EST Office Visit Pulmonology - [address] [place] [phone] Jayshree Gibbs MD [address] [place] [phone] Acute on chronic hypoxic respiratory failure (CMS/HCC V24, CMS/HCC V28) (Primary Dx); Chronic obstructive pulmonary disease, unspecified COPD type (CMS/HCC V24, CMS/HCC V28); Hypoxemia Social History Tobacco Use Types Packs/Day Years Used Date Smoking Tobacco: Former Cigarettes 0.5 54.9 S tarted: 07/05/1970 Smokeless Tobacco: Never Quit: [...] Sign Reading Time Taken Comments Blood Pressure 140/72 05/09/2025 1:47 PM EST Pulse 73 05/09/2025 1:47 PM EST Temperature 36.2 C (97.2 F) 05/09/2025 1:47 PM EST Respiratory Rate 20 05/09/2025 1:47 PM EST Oxygen Saturation 93% 05/09/2025 1:47 PM EST Inhaled Oxygen Concentration - - Weight - - Height - - Body Mass Index - - documented in this encounter Functional Status * Are you deaf or do you have serious difficulty hearing? Answer Date of Assessment Author No 02/16/2025 11:45 AM Cam Fuller RN * Are you blind or do you have serious difficulty seeing, even when wearing glasses? Answer Date of Assessment Author No 02/16/2025 11:45 AM Cam Fuller RN * Do you have serious difficulty walking or climbing stairs? Answer Date of Assessment Author No 02/16/2025 11:45 AM Cam Fuller RN * Do you have serious difficulty dressing or bathing? Answer Date of Assessment Author No 02/16/2025 11:45 AM Cam Fuller RN * Because of a physical, mental, or emotional condition, do you have serious difficulty doing errandsalone such as visiting the doctor? Answer Date of Assessment Author No 02/16/2025 11:45 AM Cam Fuller RN documented as of this encounter Mental Status * Because of a physical, mental, or emotional condition, do you have serious difficulty concentrating, remembering, or making decisions? (5 years old or older) Answer Entry Date Author No 02/16/2025 11:45 AM Cam Fuller RN documented in this encounter Ordered Prescriptions Prescription Sig Dispense Quantity Refills Last Filled Start Date End Date albuterol HFA (PROAIR HFA ; PROVENTIL HFA ; VENTOLIN HFA) 90 mcg/actuation inhaler Inhale 2 puffs by mouth every 4 (four) hours if needed for wheezing. 18 g 3 05/09/2025 11/05/2025 roflumilast (DALIRESP) 500 mcg tabletIndications: Chronic obstructive pulmonary disease, unspecified COPD type ([facility] V24, [facility] V28) Take 1 tablet (500 mcg total) by mouth 1 (one) time each day. 30 each 05/09/2025 05/09/2026 documented in this encounter Progress Notes * Jayshree Gibbs MD - 05/09/2025 1:30 PM EST Images from the original note were not included. ADULT PULMONARY CONSULT CHIEF COMPLAINT or REASON FOR CONSULTATION: COPD (F/u COPD) HISTORY OF PRESENT ILLNESS: Toby Jackson is a 65 y.o. years old, male with a history of COPD. He has been diagnosed with severe chronic obstructive pulmonary disease (COPD). During his last visit 6 months ago, the possibility of a zephryl valve procedure was discussed and he saw interventional pulmonary. He has since ceased smoking for a duration of one month and a few days. His current treatment regimen includes Trelegy, Daliresp, nebulizers, and home oxygen therapy. The patient has multiple ER visits and admits in the interim, he is now on a nocturnal ventilator. He uses oxygen with activity and nightly. He inquires about portable oxygen concentrator ALLERGIES: Current Allergies[1] ACTIVE MEDICATIONS: Medications Taking[2] PROVIDER ATTESTS THAT THE MEDICATION LIST WAS [...] Patient Active Problem List Diagnosis Date Noted SOB (shortness of breath) 02/16/2025 Coronary artery disease involving [place] coronary artery of [place] heart without angina pectoris 07/11/2024 Primary hypertension 07/11/2024 Arthritis 05/26/2024 Acute on chronic hypoxic respiratory failure ([facility] V24, [facility] [place]28) 05/15/2024 COPD exacerbation ([facility] [place], [facility] V28) 05/14/2024 Inclusion cyst 05/08/2019 Lymphadenopathy 11/18/2017 Cholelithiasis 08/10/2017 Diverticulosis 08/10/2017 Hyperlipidemia 08/10/2017 Supplemental oxygen dependent 08/10/2017 Chronic obstructive pulmonary disease (COPD) ([facility] [place], [facility] V28) 02/11/2017 Surgical History[3] FAMILY HISTORY: Family History[4] OCCUPATION OR OCCUPATION EXPOSURE: SOCIAL HISTORY Social History Socioeconomic History Marital status: Single Spouse name: Not on file Number of children: Not on file Years of education: Not on file Highest education level: Not on file Occupational History Not on file Tobacco Use Smoking status: Former Current packs/day: 0.50 Average packs/day: 0.5 packs/day for 54.8 years (27.4 ttl pk-yrs) Types: Cigarettes Start date: 07/05/1970 [...] 07/14/2021 PHYSICAL EXAM: Visit Vitals BP (!) 140/72 (BP Location: Left arm, Patient Position: Sitting, BP Cuff Size: Adult) Pulse 73 Temp 36.2 ??C (97.2 ??F) (Temporal) Resp 20 SpO2 93% Smoking Status Former APPEARANCE: Alert and in mild distres, here with EYES: Conjunctiva and sclera normal. NOSE/SINUS: Nares normal. Septum midline. Mucosa No drainage or sinus tenderness. MOUTH/THROAT: no erythema or exudates. Mallampati class 2 NECK: Neck supple, thyroid symmetric and of normal size. HEART: RRR with normal S1 and S2, no murmurs, no gallops, no JVD appreciated. LUNG: CTA b/l, no wheezing or bronchial bs. Diminished bs ABDOMEN: Bowel sounds normoactive, soft, non-tender EXTREMITIES: no clubbing, cyanosis, or edema. LYMPH NODES: No cervical and supra-clavicular lymphadenopathy. NEURO: Awake, alert and oriented x 3, no focalization Derm: no rash DIAGNOSTIC DATA: 7 mo ago pH, Donnell 7.32 - 7.42 pH 7.27 Low pCO2, Donnell 41 - 51 mmHg 55 High pO2, Donnell 25 - 40 mmHg 65 High HCO3, Venous 22.0 - 26.0 mmol/L 22.8 O2 Sat, Donnell % 92.8 CARDIOPULMONARY TEST: Last Pulmonary function Test showed: [...] DLCO 48% predicted. DlCO/VA 49% of predicted RADIOLOGIST IMAGIN03/29/25 FINDINGS: Two views of the chest were obtained. Compared to multiple prior studies most recent from March 20 2025. Emphysematous changes without infiltrates or effusions. Cardiomediastinal silhouette is normal in size and shape. Old left-sided rib fractures. IMPRESSION: Emphysematous changes without infiltrates or effusions. No significant change from the prior study. ASSESSMENT: ICD-10-CM ICD-9-CM 1. Acute on chronic hypoxic respiratory failure (CMS/HCC V24, CMS/HCC V28) J96.21 518.84 Oxygen therapy 799.02 2. Chronic obstructive pulmonary disease, unspecified COPD type (CMS/HCC V24, CMS/HCC V28) J44.9 496 roflumilast (DALIRESP) 500 mcg tablet Oxygen therapy 3. Hypoxemia R09.02 799.02 PLAN: The patient has end-stage lung disease, I will continue on all, ground glass and nebs. The patient is not on any inhaled steroids due to repeated thrush. The patient has nocturnal ventilator and I ordered him a portable oxygen concentrator. - Follow up with Sanju Disla MD for the other co-morbilities. - I spend 35 Minutes on this visit. The patient was educated about his problems, where assessment and plan was reviewed and explained, All questions were answered. This includes: Preparing to see the patient, obtaining and/or reviewing separately obtained history, performing a medically appropriate exam, ordering medications, tests, or procedures, documenting clinical information in the electronic health record, and independently interpreting results. RETURN TO THE NEXT VISIT: Based on physical exam, symptomatology, tests requested and baseline pulmonary evaluation/disease, I instructed the patient to come back to see me in 3 mths for reevaluation after the test has been done or earlier if the patient needed. Thanks Sanju Disla MD for allowing me to have the opportunity to assist in the care of this patient. [1] No Known Allergies [2] Outpatient Medications Marked as Taking for the 05/09/25 encounter (Office Visit) with Jayshree Gibbs MD Medication Sig Dispense Refill albuterol 2.5 mg /3 mL (0.083 %) nebulizer solution Inhale 3 mL (2.5 mg total) by mouth. albuterol HFA (PROAIR HFA ; PROVENTIL HFA ; VENTOLIN HFA) 90 mcg/actuation inhaler Inhale 2 puffs by mouth every 4 (four) hours if needed for wheezing. 18 g 3 allopurinoL (ZYLOPRIM) 100 mg tablet Take 1 [...] by mouth 1 (one) time each day. dextromethorphan-guaiFENesin (ROBITUSSIN-DM) 10-100 mg/5 mL syrup Take 10 mL by mouth every 4 (four) hours if needed for cough. 473 mL 1 isosorbide mononitrate (IMDUR) 30 mg 24 hr [...] 2 (two) times a day with meals. predniSONE (DELTASONE) 20 mg tablet 1-2 tab po qd prn for copd exacerbation 10 each 0 roflumilast (DALIRESP) 500 mcg tablet TAKE 1 TABLET DAILY 90 tablet 1 umeclidinium-vilanteroL (Anoro Ellipta) 62.5-25 mcg/actuation inhaler Inhale 1 puff by mouth 1 (one) time each day. 1 each 11 [DISCONTINUED] albuterol HFA (PROAIR HFA ; PROVENTIL HFA ; VENTOLIN HFA) 90 mcg/actuation inhaler USE 2 INHALATIONS ORALLY EVERY 4 HOURS NEEDED FORSHORTNESS OF BREATH OR WHEEZING 18 g 6 [3] Past Surgical History: Procedure Laterality Date DENTAL SURGERY PROCEDURE: [place] UNLISTED PROCEDURE DENTOALVEOLAR STRUCTURES KNEE SURGERY PROCEDURE: HISTORICAL KNEE SURGERY [4] No family history on file. documented in this encounter Plan of Treatment Upcoming Encounters Date Type Department Care Team (Late st Contact Info) Description 05/24/2025 5:30 PM EST Appointment [facility] CT Scan [address] [place] [address] 11/14/2025 1:00 PM EDT Office Visit Pulmonology - [address] [place] [address] Jayshree Gibbs MD [address] [place] [phone] documented as of this encounter Visit Diagnoses Diagnosis Acute on chronic hypoxic respiratory failure ([facility] V24, [facility] V28)- Primary Chronic obstructive pulmonary disease, unspecified COPD type ([facility] V24, [facility] V28) Hypoxemia documented in this encounter Discontinued Medications Medication Sig Discontinue Reason Start Date End Da te albuterol HFA (PROAIR HFA ; PROVENTIL HFA ; VENTOLIN HFA) 90 mcg/actuation inhaler USE 2 INHALATIONS ORALLY EVERY 4 HOURS NEEDED FORSHORTNESS OF BREATH OR WHEEZING Reorder 06/06/2024 05/09/2025 documented as of this encounter Orders General Supply Count Last Ordered Date First Or dered Date OXYGEN THERAPY 1 05/09/2025 documented in this encounter Care Teams Rn Nicu Relationship Specialty Start Date End Date Sanju Disla MD [address] [place] [address] [address] [place], [place] PCP - General 05/07/1997 documented as of this encounter
[2025-05-14 15:38] VITALS: BP 118/76; PULSE 81; O2SAT 91; BMI 30.9
--- NOTE | 2025-05-14 15:38 | A.OFFPC_ITS ---
Vital Signs 05/14/25 15:38 Height 6 ft Weight 228 lb 2 oz BMI 30.9 BP 118/76 Blood Pressure Location Lt brachial Position Sitting Pulse 81 Pulse Source Pulse Oximeter Pulse Oximetry (%) 91 L Oxygen Delivery Method Room Air Intake Visit Reasons: COPD, hyperlipidemia Spinner Hand Required: No Accompanied by: Self / Same As Patient Allergies tamsulosin Adverse Reaction (Intermediate, Verified 05/14/25 15:57) dizziness, headaches Medication List - Last Reconciled 05/14/25 by Sanju Disla MD albuterol sulfate 90 mcg/actuation (Ventolin HFA) 2 puffs inhalation Q6H PRN albuterol sulfate 2.5 mg (3 mL) continuous nebulization QID PRN alfuzosin ER 10 mg PO DAILY amlodipine 5 mg PO DAILY Anoro Ellipta 62.5-25 mcg/actuation (umeclidinium-vilanterol) 1 inh inhalation DAILY 30 days NS aspirin 81 mg PO DAILY atorvastatin 80 mg PO DAILY bisacodyl (Gentle Laxative (bisacodyl)) 10 mg (2 x 5 mg) PO BEDTIME cholecalciferol (vitamin D3) (Vitamin D3) 25 mcg PO DAILY cyanocobalamin (vitamin B-12) 1,000 mcg PO DAILY docusate sodium 100 mg PO BEDTIME fluconazole 150 mg PO QWEEK 4 weeks [id number]-dlfsfytvx-eghrbqbb 200-62.5-25 mcg (Trelegy Ellipta) 1 ea inhalation DAILY gabapentin 100 mg PO TID isosorbide mononitrate ER 30 mg PO DAILY losartan 100 mg PO DAILY nitroglycerin 0.4 mg sublingual Q5M nystatin 500,000 units (5 mL) mucous membrane TID 10 days pantoprazole 40 mg PO DAILY polyethylene glycol 3350 (Miralax) 17 grams PO DAILY potassium citrate ER 20 mEq (2 x 10 mEq (1,080 mg)) PO BID 90 days roflumilast (Daliresp) 500 mcg PO DAILY Tobacco use date assessed: 05/14/25 Fall risk assessment: No Falls in past year Last assessed Fall Risk: 05/14/25 Dental Screening Dental Screen Date: 05/14/25 Did you have a dental visit in the last 12 months?: Yes Did you have a dental problem in the last 6 months where you did not have access to dental care?: No Was dental information given to patient?: Patient has dentist HPI COPD, hyperlipidemia HPI Details Patient comes in today for his follow up visit States that he currently feels okay and that he is now using a nocturnal ventilator when he is sleeping at night as ordered by Dr. Gibbs to help address his CO2 retention when he is sleeping at night and to hopefully to improve gas exchange, improve quality of life and decrease his hospital admissions He denies any headaches or dizziness Denies any chest pains, no increased SOB at present No nausea/vomiting, no abdominal pain No change in bowel habits noted He continues to experience frequent numbness and tingling sensation and sometimes burning pain over the bottom of his feet, with the symptoms more p rominent at night - he is currently taking Gabapentin 100 mg TID for this (Rx was started about 3 weeks ago) and states that he is not yet sure if this is helping or not as he has not noticed any change or improvement yet in his neuropathic symptoms Adds that he has been experiencing increased pain over his lower back lately - he denies any recent injury or trauma to his lower back Needs a couple of his Rx refilled He had his follow up labs done last month - to discuss his results [facility] Medical History Oral thrush Allergic rhinitis Overweight (BMI 25.0-29.9) Constipation Atherosclerotic cardiovascular disease Swelling of left lower extremity Vitamin B12 deficiency GERD without esophagitis Anterior chest wall pain Mixed hyperlipidemia Primary insomnia Urinary frequency Neuropathy Vitamin D deficiency Osteoarthritis Lumbar degenerative disc disease Impaired fasting glucose Benign essential hypertension COPD (chronic obstructive pulmonary disease) Headache Epidermoid cyst Surgical History History of total right knee replacement History of cardiac cath History of colonoscopy Family History Father Colon cancer Mother Medical history unknown Social History Housing: Apartment Alcohol intake: former Patient Tobacco Use Status: Current everyday Tobacco user Tobacco use type: Cigarette Cigarettes Per Day: 15 Years Smoked: 30 +/- e-Cigarette/Vaping Use: Never Used Second Hand Smoke Exposure: Yes service: No Current occupational status: disabled Cognitive needs: No Hearing needs: Yes Vision needs: Yes (reading glasses) Questionnaire PHQ-9 Over the last 2 weeks, how often have you been bothered by any of the following problems? 1. Little interest or pleasure in doing things: not at all 2. Feeling down, depressed, or hopeless: not at all 3. Trouble falling or staying asleep, or sleeping too much: not at all 4. Feeling tired or having little energy: not at all 5. Poor appetite or overeating: not at all 6. Feeling bad about yourself - or that you are a failure or have let yourself or your family down: not at all 7. Trouble concentrating on things, such as reading the newspaper or watching television: not at all 8. Moving or speaking so slowly that other people could have noticed. Or the opposite - being so fidgety or restless that you have been moving around a lot more than usual: not at all 9. Thoughts that you would be better off or of hurting yourself in some way: not at all Total score: 0 Depression Screening Interpretation: Negative Depression Screening Done: Yes 71213 - PHQ-9 Billing: Yes Source: Developed by Drs. Ronald Vieira, Yomaira Craig, Sesar Stahl and colleagues, with an educational estelle from [employer]. Thrive Questionnaire Date Thrive assessed: 05/14/25 I am a: Patient What is your living situation today?: I have a steady place to live Within the past 12 months, did the food you bought not last and you didn't have the money to get more?: Often true Within the past 12 months, did you worry whether your food would run out before you got money to buy more?: Never true Do you have trouble paying for medicines?: No Do you have trouble getting transportation to medical appointments?: No Do you have trouble paying your heating and electricity bill?: No Do you have trouble taking care of your child, family member or friend?: No Do you have trouble with day-to-day activities such as bathing, preparing meals, shopping, managing finances, etc.?: No Are you currently unemployed and looking for a job?: No Are you interested in more education?: No Please select the resources that you would like help with: None Currently or been in a relationship where the following occur: I choose not to a nswer THRIVE Score: 1 AUDIT C Alcohol Use Questionnaire (AUDIT-C) 1. How often do you have a drink containing alcohol?: Never 3. How often do you have six or more drinks on one occasion?: Never Total Score: 0 Score Reviewed/Action Taken: Yes SUSIE-7 AMB Questionnaire SUSIE-7 Date SUSIE - 7 assessed: 05/14/25 Feeling nervous, anxious, or on edge: 0 = Not at all Not being able to stop or control worryin = Not at all Worrying too much about different things: 0 = Not at all Trouble relaxin = Not at all Being so restless that it is hard to sit still: 0 = Not at all Becoming easily annoyed or irritable: 0 = Not at all Feeling afraid as if something awful might happen: 0 = Not at all Total SUSIE-7 score (0-4 normal; 5-9 mild; 10-14 moderate; 15-21 severe): 0 Source: Developed by Drs. Ronald Vieira, Yomaira Craig, Sesar Stahl and colleagues, with an educational estelle from [employer]. Review of Systems Const Denies chills, Denies fatigue, Denies fever(s) and Denies headache(s) ENT Denies dysphagia, Denies dizziness, Denies otalgia, Denies headache(s), Denies neck pain, Denies odynophagia and Denies sore throat Card Denies chest pain, Denies palpitations and Reports dyspnea on exertion (mild) Resp Denies chest congestion, Reports cough (occasional; coughs up thick whitish phlegm at times), Reports dyspnea on exertion (mild) and Denies wheezing GI Denies abdominal pain, Denies constipation, Denies dysphagia, Denies heartburn, Denies diarrhea, Denies nausea, Denies odynophagia and Denies vomiting Denies hematuria, Denies difficulty urinating, Denies dysuria, Denies nocturia and Denies urinary frequency Musc Reports back pain (over the lower back - chronic; increasing lately), Denies neck pain, Reports numbness (in both feet, worse at night) and Reports tingling Skin/Breast Denies rash Neuro Denies dizziness, Denies headache(s), Reports numbness (in both feet, worse at night), Reports tingling and Reports paresthesias (in both feet) Endo Denies fatigue and Denies palpitations Glynn/Lymph Details: recurrent swelling of his left foot and ankle Aller/Immun Reports seasonal rhinorrhea and Denies wheezing Physical exam (Primary Care) Vital Signs: Last Vital Signs Pulse 81 05/14/25 15:38 BP 118/76 05/14/25 15:38 Pulse Ox 91 L 05/14/25 15:38 Oxygen Delivery Method Room Air 05/14/25 15:38 BMI result Body Mass Index 30.9 Tobacco/Smoking Status: Tobacco use Status Tobacco use date assessed 05/14/25 05/14/25 15:49 Patient Tobacco Use Status Current everyday Tobacco 05/14/25 15:49 Tobacco use type Cigarette 05/14/25 15:49 e-Cigarette/Vaping Use Never Used 05/14/25 15:49 PHQ-9: PHQ-9 Score PHQ-9: Total score 0 05/14/25 16:10 Depression Screening Interpretation: Negative Thrive Assessment: Date of Thrive Assessment Date Thrive assessed 05/14/25 05/14/25 15:49 Currently or been in a relationship where the following occur: I choose not to answer Const General: no acute distress and alert HENMT Ears: TM's normal bilaterally and EAC's normal Throat: Yes posterior oropharynx normal and Yes tonsils normal (no TP congestion noted) Neck Neck: Yes supple and No lymphadenopathy Thyroid: Thyroid normal Resp Auscultation: no crackles, no rales, no wheezes and diminished lung sounds (significantly) bilateral Cardio Rate: regular rate Rhythm: regular rhythm Heart sounds: no murmurs GI Palpation (GI): Soft to palpation and nontender Auscultation: normal bowel sounds General: Yes no CVA tenderness Back/Spine/Pelvis Back: no CVA tenderness Thoracic/Lumbar Spine: lumbar spinal tenderness Skin Rashes: no rashes Extrem General: Yes no clubbing, cyanosis or edema Results Reviewed Results Reviewed: Laboratory Tests 04/14/25 07:28 WBC 6.9 Hgb 14.4 Hct 42.2 Plt Count 244 Sodium 142 Potassium 4.6 Creatinine 1.05 Estimated GFR > 60 Fasting Glucose 104 H Hemoglobin A1c % 5.5 Calcium 9.3 AST 20 ALT 26 Triglycerides 61 Cholesterol 113 LDL Cholesterol, Calc 59 HDL Cholesterol 42 Vitamin B12 1753 H 25-OH Vitamin D Total 46.0 TSH 1.02 Ur Specific [place] 1.015 Urine Protein Negative Urine Glucose (UA) Negative Urine Blood Negative Urine Nitrite Negative Ur Leukocyte Esterase Negative Coding Level of Care Code Est Pt Level 4 (90879) Diagnoses Chronic obstructive pulmonary disease, unspecified COPD type J44.9 COPD type: unspecified COPD Atherosclerotic cardiovascular disease I25.10 Mixed hyperlipidemia E78.2 Essential hypertension I10 Allergic rhinitis, unspecified seasonality, unspecified trigger J30.9 Allergic rhinitis seasonality: unspecified Allergic rhinitis trigger: unspecified Primary osteoarthritis, unspecified site M19.91 Osteoarthritis location: unspecified site Osteoarthritis type: primary Lumbar degenerative disc disease M51.36 Neuropathy G62.9 Primary insomnia F51.01 Obesity (BMI 30-39.9) E66.9 Additional Codes PHQ-9 - 15847 - PHQ-9 Billing: Yes ([id number]) Assessment & Plan Assessment & Plan (1) COPD (chronic obstructive pulmonary disease): Code(s): J44.9 - Chronic obstructive pulmonary disease, unspecified Category: Medical Qualifiers: COPD type: unspecified COPD Qualified Code(s): J44.9 - Chronic obstructive pulmonary disease, unspecified Plan: Low-dose CT done on 09/18/2023 revealed (+) emphysematous disease and pulmonary parenchymal scarring without interval development of suspicious pulmonary nodules Continue Trelegy Ellipta 200-62.5-25 mcg 1 inhalation QD, Daliresp 500 mcg tablet once a day and Ventolin HFA 2 puffs 4 times a day as needed; patient also uses his nebulizer with Albuterol solution up to 4 times a day when needed Continue Mucinex ER 600 mg tablet BID PRN to help loosen up his phlegm and make it easier for him to cough up his phlegm Patient also has nocturnal hypoxemia and CO2 retention and is now using a nocturnal ventilator when he is sleeping at night to hopefully improve gas exchange, improve quality of life and decrease his hospital admissions Follow-up with pulmonary (Dr. Jayshree Gibbs) at [place] as scheduled (2) Atherosclerotic cardiovascular disease: Code(s): I25.10 - Atherosclerotic heart disease of [place] coronary artery without angina pectoris Category: Medical Plan: Cardiac catheterization done back on 04/01/2021 revealed (+) subtotal occlusion of the right coronary artery with collaterals; no significant disease elsewhere Repeat cardiac catheterization done last year on 05/19/2024 revealed normal EDP with coronary anatomy unchanged from 2020 and with well-established MANAGER SPECIAL EVENTS of RCA He was recommended to continue with aggressive risk reduction and medical management with dual anti-platelet therapy, long-acting nitrates (Isosorbide mononitrate ER 30 mg QD) and high-dose statins Per cardiology, IF symptoms persist or progress, they will then consider intervention of his RCA disease Follow-up with cardiology as scheduled (3) Mixed hyperlipidemia: Code(s): E78.2 - Mixed hyperlipidemia Category: Medical Plan: Results of his labs done last month reviewed and discussed with patient Reinforced low cholesterol diet Continue Atorvastatin 80 mg QD - he was taken off Gemfibrozil and started on Atorvastatin after his cardiac cath a few years ago in 2020 Will recheck his labs and fasting lipids in 4 months for follow up (4) Essential hypertension: Code(s): I10 - Essential (primary) hypertension Category: Medical Plan: Reinforced low-sodium diet -? goal is systolic BP of at least 120 to 130 mm or less Continue Losartan 100 mg QD and Amlodipine 5 mg QD (5) Allergic rhinitis: Code(s): J30.9 - Allergic rhinitis, unspecified Category: Medical Qualifiers: Allergic rhinitis seasonality: unspecified Allergic rhinitis trigger: unspecified Qualified Code(s): J30.9 - Allergic rhinitis, unspecified Plan: Continue Fluticasone 50 mcg nasal spray QD PRN (6) Osteoarthritis: Code(s): M19.90 - Unspecified osteoarthritis, unspecified site Category: Medical Qualifiers: Osteoarthritis location: unspecified site Osteoarthritis type: primary Qualified Code(s): M19.91 - Primary osteoarthritis, unspecified site Plan: Patient states that his joint pains remain adequately controlled on Tramadol PRN (7) Lumbar degenerative disc disease: Code(s): M51.36 - Other intervertebral disc degeneration, lumbar region Category: Medical Plan: Reinforced activity and weight lifting restrictions Lumbar spine MRI done in February 2023 revealed (+) multilevel degenerative disc disease MRI revealed (+) mild to moderate spinal canal stenosis at L3-L4 with bilateral subarticular stenosis and compression of the exiting right more than left L3 nerve roots. At L4-L5, there is mild to moderate spinal canal stenosis, bilateral subarticular stenosis with compression of the traversing L5 nerve roots, and severe bilateral neural foraminal stenosis with compression of both exiting L4 nerve roots. There is severe bilateral neural foraminal stenosis with compression of both exiting L5 nerve roots at L5-S1 As he has been experiencing increased pain over his lower back recently, will have him get updated lumbar spine x-rays ANALI for further evaluation Continue Tramadol 50 mg 3 times a day with food as needed for back pain; Gabapentin also helps Follow up with pain management as scheduled (8) Neuropathy: Code(s): G62.9 - Polyneuropathy, unspecified Category: Medical Plan: Continue Gabapentin 100 mg TID - he was just started back on this about 3 weeks ago so will have him continue on his current dose for now EMG and NCV done back in June 2016 showed findings of doby-cu-ttdeocpk axonal sensory and motor peripheral neuropathy (9) Primary insomnia: Code(s): F51.01 - Primary insomnia Category: Medical Plan: Sleep hygiene reinforced (10) Obesity (BMI 30-39.9): Code(s): E66.9 - Obesity, unspecified Category: Medical Plan: Reinforced diet; exercise and weight loss are impractical given patient's advanced COPD and multiple comorbidities and physical issues Plan Follow up in 4 months Orders: Orders Complete Blood Count Auto Diff 4 Months D64.9 - Anemia, unspecified Comprehensive [place]. Panel Fast 4 Months E78.00 - Pure hypercholesterolemia, unspecified TSH reflex Free T4 4 Months E78.00 - Pure hypercholesterolemia, unspecified Vitamin B12 and Folate 4 Months E53.8 - Deficiency of other specified B group vitamins Vitamin D 25-OH Total 4 Months E55.9 - Vitamin D deficiency, unspecified XR lumbar spine 2-3V Today M54.50 - Low back pain, unspecified Lipid Panel 4 Months E78.00 - Pure hypercholesterolemia, unspecified UA CC w/rflx Micro + Cult 4 Months R30.0 - Dysuria Medications: Refilled gabapentin 100 mg PO TID 90 caps 2RF nystatin swish dose in each side of the mouth for a few minutes, then swallow - repeat 3 times a day x 7 to 10 days 500,000 units (5 mL) mucous membrane TID 150 mL 0RF 10 days
--- OUTSIDE RECORDS SUMMARY | 2025-05-14 17:34 | XMS_ITS | Encounter Summary ---
Author Organization [facility] Address [address] [place] [address] Care Team Providers Care Lens Engraver Name Role Phone Sanju Disla MD Primary Care Provider Reason for Visit * Reason Onset Date Comments DME-oxygen 05/10/2025 Encounter Details Date Type Department Care Team (Late st Contact Info) Description 05/10/2025 Telephone Pulmonology [facility] [address] [place] [address] Ju Mcrae MA Social History Tobacco Use Types Packs/Day Years [...] AM EST documented as of this encounter Functional Status * Are you deaf or do you have serious difficulty hearing? Answer Date of Assessment Author No 02/16/2025 11:45 AM EDT Cam Guillermo RN * Are you blind or do you have serious difficulty seeing, even when wearing glasses? Answer Date of Assessment Author No 02/16/2025 11:45 AM EDT Cam Guillermo RN * Do you have serious difficulty walking or climbing stairs? Answer Date of Assessment Author No 02/16/2025 11:45 AM EDT Cam Guillermo RN * Do you have serious difficulty dressing or bathing? Answer Date of Assessment Author No 02/16/2025 11:45 AM EDT Cam Guillermo RN * Because of a physical, mental, or emotional condition, do you have serious difficulty doing errandsalone such as visiting the doctor? Answer Date of Assessment Author No 02/16/2025 11:45 AM EDT Cam Guillermo RN documented as of this encounter Mental Status * Because of a physical, mental, or emotional condition, do you have serious difficulty concentrating, remembering, or making decisions? (5 years old or older) Answer Entry Date Author No 02/16/2025 11:45 AM EDT Cam Guillermo RN documented in this encounter Progress Notes * Ju Johnson MA - 05/10/2025 2:03 PM EST Order sent to [facility] documented in this encounter Plan of Treatment Upcoming Encounters Date Type Department Care Team (Late st Contact Info) Description 05/24/2025 5:[address] [place] [phone] 11/14/2025 1:00 PM EDT Office Visit Pulmonology - [place] [address] [place] [phone] Jayshree Gibbs MD [address] [place] [phone] documented as of this encounter Visit Diagnoses Not on filedocumented in this encounter Care Teams Lens Engraver Relationship Specialty Start Date End Date Sanju Disla MD [address] SAVANNAH Kuo PCP - General 05/07/1997 documented as of this encounter
--- OUTSIDE RECORDS SUMMARY | 2025-05-14 17:34 | XMS_ITS | Clinical Summary ---
Author Organization 175 [facility] Address [address] [place] [address] Phone Care Team Providers Care Bottle Carrier Name Role Phone Sanju Disla MD Primary [...] day. Take by mouth. - Oral Active cyanocobalamin (VITAMIN B-12) 1,000 mcg tablet [...] day. 1 each 03/09/20 25 026 Active roflumilast (DALIRESP) 500 mcg tabletIndications :Chronic obstructive pulmonary disease, unspecified COPD type ([facility] V24, [facility] V28) Take 1 tablet (500 mcg total) by mouth 1 (one) time each day. 30 each 11 05/09/20 25 026 Active albuterol HFA (PROAIR HFA ; PROVENTIL HFA ; VENTOLIN HFA) 90 mcg/actuation inhaler Inhale 2 puffs by mouth every 4 (four) hours if needed for wheezing. 18 g 3 05/09/20 25 026 Active albuterol HFA (PROAIR HFA ; PROVENTIL HFA ; VENTOLIN HFA) 90 mcg/actuation inhaler USE 2 INHALATIONS ORALLY EVERY 4 HOURS NEEDED FORSHORTNESS OF BREATH OR WHEEZING 18 g 6 06/06/20 24 025 Discontin ued(Reord er) Active Problems Problem Noted Date Diagnosed Date SOB (shortness of breath) 02/16/2025 Coronary artery disease invo lving [place] coronary artery of [place] heart without angina pectoris 07/11/2024 Assessment & [...] Acute on chronic hypoxic res piratory failure ([facility] V24, [facility] V28) 05/15/2024 COPD exacerbation ([facility] V24, [facility] V28) 04/2024 Inclusion cyst 05/08/2019 Lymphadenopathy 11/18/2017 [...] 08/10/2017 Chronic obstructive pulmonar y disease (COPD) ([facility] V24, [facility] V28) 02/11/2017 Resolved Problems Problem Noted Date Diagnosed Date Resolved Date Chest pain 07/03/2024 07/11/2024 Encounters Date Type Department Care Team Description 05/10/2025 Telephone Pulmonology - [place] [address] [facility] [address] [place] [phone] Ju Mcrae [place] 05/09/2025 1:30 PM EST Office Visit Pulmonology - [place] 175 [facility] [address] [place] [phone] Jayshree Gibbs MD Acute on chronic hypoxic respiratory failure ([facility] V24, [facility] V28) (Primary Dx); Chronic obstructive pulmonary disease, unspecified COPD type ([facility] V24, [facility] V28); Hypoxemia 05/04/2025 Telephone Lung Screening Program - [place]ia [address] [facility] [address] [place] [phone] Joie Craig [place] 04/05/2025 11:15 AM EDT Office Visit Pulmonology - [place] 175 [facility] [address] [place] [phone] Jayshree Gibbs MD Acute on chronic hypoxic respiratory failure ([facility] V24, [facility] V28) (Primary Dx); Supplemental oxygen dependent; End stage chronic obstructive pulmonary disease ([facility] V24, [facility] V28); Acute on chronic respiratory failure with hypoxia and hypercapnia ([facility] V24, [facility] V28) 03/29/2025 9:29 AM EDT - 03/29/2025 1:[address] [facility] [address] [place] [address] Near syncope (Primary Dx) Discharge Disposition: Home or Self Care 03/20/2025 12:14 PM EDT - 03/20/2025 4:[address] [facility] [address] [place] [address] COPD exacerbation ([facility] [place]24, [facility] V28) (Primary Dx) Discharge Disposition: Home or Self Care 03/20/2025 Telephone Pulmonology - [address] [phone] Jayshree Gibbs MD 03/07/2025 2:45 PM EDT Office Visit Pulmonology [address] [phone] Jayshree Gibbs MD Acute on chronic hypoxic respiratory failure ([facility] V24, [facility] V28) (Primary Dx); Supplemental oxygen dependent; Pulmonary emphysema, unspecified emphysema type ([facility] V24, [facility] V28) 02/15/2025 9:32 PM EDT - 02/16/2025 2:46 PM EDT Hospital Encounter [facility] [address] [place] [phone] Tomer Holland MD Ishtiaq, Rizwan, MD Bell, Alistair A, MD COPD exacerbation ([facility] V24, [facility] V28) (Primary Dx); Acute on chronic respiratory failure with hypoxia ([facility] V24, [facility] V28) Discharge Disposition: Home or Self Care from Last 3 Months Immunizations Immunization Administration Dates Next Due Influenza Quadravalent, MDCK , 0.5ml, preservative free (Flucelvax) 6mo and older 04/28/2022 Surgical History Surgery Date Site/Laterality Comments KNEE SURGERY PROCEDURE: HISTORICAL KNEE SURGERY DENTAL SURGERY PROCEDURE: [place] UNLISTED PROCEDURE DENTOALVEOLAR STRUCTURES Medical History Medical History Date Comments Arthritis DX:Arthritis Cholelithiasis 08/10/2017 DX:Cholelithiasi s Diverticulosis 08/10/2017 DX:Diverticulosi s Hyperlipidemia 08/10/2017 DX:Hyperlipidemi a Tobacco use 02/11/2017 DX:Tobacco use Chronic obstructive pulmonar y disease (COPD) ([facility] V24, [facility] V28) 02/11/2017 DX:Chronic obstructi ve pulmonary disease (COPD) ([facility]) Supplemental oxygen dependent 08/10/2017 DX :Supplemental oxygen [...] EST Inhaled Oxygen Concentration - - Weight 96.6 kg (213 lb) 03/29/2025 9:15 AM EDT Height 182.9 cm (6') 03/29/2025 9:15 AM EDT Body Mass Index 28.89 03/29/2025 9:15 AM EDT Plan of Treatment Upcoming Encounters Date Type Department Care Team (Late st Contact Info) Description 05/24/2025 5:[address] [facility] Scan [address] [place] [phone] 11/14/2025 1:00 PM EDT Office Visit Pulmonology - Natalia 175 [facility] [address] [place] [phone] Jyashree Gibbs MD [address] [place] [phone] Health Maintenance Due Date Last Done Comments [...] ECG 12-LEAD STAT 02/15/2025 10:19 PM EDT [place] [facility] 30-74 MINUTES Routine 02/15/2025 9:22 [...] Signed Date: 03/29/2025 11:02 ET Workstation ID: [id number] Transcribed By: Self Edit Transcribed Date: 03/29/2025 [...] Signed Date: 03/29/2025 11:02 ET Workstation ID: [id number] Transcribed By: Self Edit Transcribed Date: 03/29/2025 11:00 ET Philip HARRISON IMG XR PROCEDURES Final Resu lt * (ABNORMAL) CBC auto differential (03/29/2025 9:24 AM EDT) Only the most recent of4 resultswithin the time period is included. WBC 9.0 4.8 - 10.8 K/mcL LAB HEMETOLOGY METHOD 03/29/2025 10:04 AM [facility] RBC 4.60 4.50 - 5.50 M/mcL LAB HEMETOLOGY METHOD 03/29/2025 10:04 AM EDT [facility] Hemoglobin 14.0 13.5 - 17.5 g/dL LAB HEMETOLOGY METHOD 03/29/2025 10:04 AM [facility] Hematocrit 41.0(L) 42.0 - 54.0 % LAB HEMETOLOGY METHOD 03/29/2025 10:04 AM [facility] MCV 89.3 79.0 - 98.0 FL LAB HEMETOLOGY METHOD 03/29/2025 10:04 AM [facility] MCH 30.5 27.0 - 32.0 pcg LAB HEMETOLOGY METHOD 03/29/2025 10:04 AM [facility] MCHC 34.1 32.0 - 37.0 g/dL LAB HEMETOLOGY METHOD 03/29/2025 10:04 AM [facility] RDW 12.4 11.0 - 15.0 % LAB HEMETOLOGY METHOD 03/29/2025 10:04 AM [facility] Platelets 215 130 - 400 K/mcL LAB HEMETOLOGY METHOD 03/29/2025 10:04 AM [facility] MPV 9.1 7.0 - 11.0 FL LAB HEMETOLOGY METHOD 03/29/2025 10:04 AM [facility] NRBC 0.0 <1.0 % LAB HEMETOLOGY METHOD 03/29/2025 10:04 AM [facility] NRBC Absolute 0.00 <0.10 K/mcL LAB HEMETOLOGY METHOD 03/29/2025 10:04 AM [facility] Neutrophils Relative 68.5 % LAB HEMETOLOGY METHOD 03/29/2025 10:04 AM [facility] Lymphocytes Relative 18.3 % LAB HEMETOLOGY METHOD 03/29/2025 10:04 AM [facility] Monocytes Relative 9.1 % LAB HEMETOLOGY METHOD 03/29/2025 10:04 AM [facility] Eosinophils Relative 3.0 % LAB HEMETOLOGY METHOD 03/29/2025 10:04 AM [facility] Basophils Relative 0.4 % LAB HEMETOLOGY METHOD 03/29/2025 10:04 AM [facility] Immature Granulocytes Relative 0.7 % LAB HEMETOLOGY METHOD 03/29/2025 10:04 AM EDT [facility] Neutrophils Absolute 6.19 1.50 - 7.00 K/mcL LAB HEMETOLOGY METHOD 03/29/2025 10:04 AM EDT [facility] Lymphocytes Absolute 1.65 1.00 - 5.00 K/mcL LAB HEMETOLOGY METHOD 03/29/2025 10:04 AM EDT [facility] Monocytes Absolute 0.82 0.20 - 1.00 K/mcL LAB HEMETOLOGY METHOD 03/29/2025 10:04 AM EDT [facility] Eosinophils Absolute 0.27 0.00 - 0.50 K/mcL LAB HEMETOLOGY METHOD 03/29/2025 10:04 AM EDT [facility] Basophils Absolute 0.04 0.00 - 0.20 K/mcL LAB HEMETOLOGY METHOD 03/29/2025 10:04 AM EDT [facility] Immature Granulocytes Absolute 0.06(H) 0.00 - 0.03 K/mcL LAB HEMETOLOGY METHOD 03/29/2025 10:04 AM EDT [facility] Blood Venous blood specimen / Unknown Venipuncture / Unknown 03/29/2025 9:24 AM EDT 03/29/2025 9:53 AM EDT us Philip HARRISON LAB BLOOD ORDERABLES Final R esult [facility] [address] [place] [address], * Magnesium (03/29/2025 9:24 AM EDT) Only the most recent of2 resultswithin the time period is included. Magnesium 2.0 1.9 - 2.6 mg/dL LAB CHEMISTRY METHOD 03/29/2025 10:20 AM EDT [facility] Blood Venous blood specimen / Unknown Venipuncture / Unknown 03/29/2025 9:24 AM EDT 03/29/2025 9:53 AM EDT us Philip HARRISON LAB BLOOD ORDERABLES Final R esult [facility] [address] [place] [address], [place] [phone] * (ABNORMAL) Basic metabolic panel (03/29/2025 9:24 AM EDT) Only the most recent of3 resultswithin the time period is included. Pathologist [facility] Sodium 139 133 - 145 mmol/L LAB CHEMISTRY METHOD 03/29/2025 10:20 AM [facility] Potassium 4.3 3.5 - 5.5 mmol/L LAB CHEMISTRY METHOD 03/29/2025 10:20 AM [facility] Chloride 108 96 - 110 mmol/L LAB CHEMISTRY METHOD 03/29/2025 10:20 AM [facility] CO2 28 21 - 32 mmol/L LAB CHEMISTRY METHOD 03/29/2025 10:20 AM [facility] Anion Gap 3 3 - 11 LAB CHEMISTRY METHOD 03/29/2025 10:20 AM [facility] Glucose 108(H) 70 - 100 mg/dL LAB CHEMISTRY METHOD 03/29/2025 10:20 AM [facility] BUN 16 5 - 25 mg/dL LAB CHEMISTRY METHOD 03/29/2025 10:20 AM [facility] Creatinine 1.01 0.70 - 1.30 mg/dL LAB CHEMISTRY METHOD 03/29/2025 10:20 AM [facility] eGFR 82 >=60 mL/min/1. 73m2 LAB CHEMISTRY METHOD 03/29/2025 10:20 AM [facility] Comment:Calculation based on the Chronic Kidney Disease Epidemiology Collaboration (CKD-EPI) equation refit without adjustment for race. BUN/Creatinine Ratio 15.8 LAB CHEMISTRY METHOD 03/29/2025 10:20 AM EDT [facility] Calcium 8.9 8.5 - 10.5 mg/dL LAB CHEMISTRY METHOD 03/29/2025 10:20 AM EDT [facility] Blood Venous blood specimen / Unknown Venipuncture / Unknown 03/29/2025 9:24 AM EDT 03/29/2025 9:53 AM EDT Philip HARRISON LAB BLOOD ORDERABLES Final R esult [facility]) [facility] [address] [place] [address], [place] [phone] * ECG 12 lead (03/29/2025 9:19 AM EDT) Only the most recent of3 resultswithin the time period is included. Pathologist [facility] Ventricular Rate ECG 91 BPM GEMUSE Atrial Rate 91 BPM GEMUSE P-R Interval 122 ms GEMUSE QRS Duration 140 ms GEMUSE Q-T Interval 382 ms GEMUSE QTc 469 ms GEMUSE P Wave [place] 5 degrees GEMUSE R [place] 88 degrees GEMUSE T [place] 40 degrees GEMUSE ECG Interpretation Normal sinus rhythm Right bundle branch block Abnormal ECG When compared with ECG of 20-MAR-2025 12:21, Premature supraventricular complexes are no longer Present Confirmed by Layton DEE JOHN ([id number]) on 03/29/2025 1:19:46 PM GEMUSE 03/29/2025 9:19 AM EDT 03/29/2025 1:19 PM EDT Philip HARRISON ECG ORDERABLES Final Result Performing Organization Address City/[facility]/ZIP Co de Phone Number GEMUSE * Troponin I high sensitivity (03/20/2025 1:23 PM EDT) Only the most recent of2 resultswithin the time period is included. [facility] High Sensitivity Troponin I 7 <=79 ng/L LAB CHEMISTRY METHOD 03/20/2025 2:19 PM EDT [facility] Blood Venous blood specimen / Unknown Venipuncture / Unknown 03/20/2025 1:23 PM EDT 03/20/2025 2:19 PM EDT Narrative [facility] - 03/20/2025 2:19 PM EDT High levels of biotin in samples may falsely decrease hsTroponin values. Use caution when interpreting hsTroponin results in patients taking biotin who exhibit renal impairment (eGFR <60) or in patients taking more than 20 mg/day of biotin. us Rashida Rangel MD LAB BLOOD ORDERABLES Final Resul t [facility] [address] [place] [address], [place] [phone] * Respiratory virus panel molecular study (03/20/2025 12:26 PM EDT) Only the most recent of2 resultswithin the time period is included. Adenovirus Detection by PCR Not Detected Not Detected LAB MICROBIOLOGY METHOD 03/20/2025 2:27 PM EDT [facility] Influenza A PCR Not Detected Not Detected LAB MICROBIOLOGY METHOD 03/20/2025 2:27 PM EDT [facility] Influenza B PCR Not Detected Not Detected LAB MICROBIOLOGY METHOD 03/20/2025 2:27 PM EDT [facility] Coronavirus 229E Not Detected Not Detected LAB MICROBIOLOGY METHOD 03/20/2025 2:27 PM EDT [facility] Coronavirus HKU1 Not Detected Not Detected LAB MICROBIOLOGY METHOD 03/20/2025 2:27 PM EDT [facility] Coronavirus OC43 Not Detected Not Detected LAB MICROBIOLOGY METHOD 03/20/2025 2:27 PM EDT [facility] Coronavirus NL63 Not Detected Not Detected LAB MICROBIOLOGY METHOD 03/20/2025 2:27 PM EDT [facility] Parainfluenza Virus 1 Not Detected Not Detected LAB MICROBIOLOGY METHOD 03/20/2025 2:27 PM EDT [facility] Parainfluenza Virus 2 Not Detected Not Detected LAB MICROBIOLOGY METHOD 03/20/2025 2:27 PM EDT [facility] Parainfluenza Virus 3 Not Detected Not Detected LAB MICROBIOLOGY METHOD 03/20/2025 2:27 PM EDT [facility] Parainfluenza Virus 4 Not Detected Not Detected LAB MICROBIOLOGY METHOD 03/20/2025 2:27 PM EDT [facility] RSV PCR Not Detected Not Detected LAB MICROBIOLOGY METHOD 03/20/2025 2:27 PM EDT [facility] Human Metapneumovirus A and B Not Detected Not Detected LAB MICROBIOLOGY METHOD 03/20/2025 2:27 PM EDT [facility] Rhinovirus/Entero virus Not Detected Not Detected LAB MICROBIOLOGY METHOD 03/20/2025 2:27 PM EDT [facility] Bordetella pertussis Not Detected Not Detected LAB MICROBIOLOGY METHOD 03/20/2025 2:27 PM EDT [facility] Bordetella parapertussis Not Detected Not Detected LAB MICROBIOLOGY METHOD 03/20/2025 2:27 PM EDT [facility] Mycoplasma pneumo by PCR Not Detected Not Detected LAB MICROBIOLOGY METHOD 03/20/2025 2:27 PM EDT [facility] Chlamydia pneumoniae Not Detected Not Detected LAB MICROBIOLOGY METHOD 03/20/2025 2:27 PM EDT [facility] SARS COV-2 Not Detected Not Detected LAB MICROBIOLOGY METHOD 03/20/2025 2:27 PM EDT [facility] Swab Both anterior nares / Unknown Non-blood Collection / Unknown 03/20/2025 12:26 PM EDT 03/20/2025 1:25 PM EDT [facility] - 03/20/2025 2:27 PM EDT Testing was performed using the Covarity Respiratory Pathogen PCR Assay. All results must [...] ORDER TAYLOR Final Result Performing Organization Address [facility] Co de Phone Number [facility] [address] [place] [address], [place] [phone] * B-type natriuretic peptide (03/20/2025 12:24 PM EDT) Only the most recent of2 resultswithin the time period is included. Pathologist [facility] BNP 75 <=100 pcg/mL LAB CHEMISTRY METHOD 03/20/2025 2:02 PM EDT [facility] Blood Venous blood specimen / Unknown Venipuncture / Unknown 03/20/2025 12:24 PM EDT 03/20/2025 1:25 PM EDT us Rashida Rangel MD LAB BLOOD ORDERABLES Final Resul t Performing Organization Address [facility] de Phone Number [facility] [address] [place] [address], [place] [phone] * (ABNORMAL) Comprehensive metabolic panel (02/15/2025 10:27 PM EDT) Pathologist [facility] Sodium 137 133 - 145 mmol/L LAB CHEMISTRY METHOD 02/15/2025 11:11 PM EDT [facility] Potassium 4.1 3.5 - 5.5 mmol/L LAB CHEMISTRY METHOD 02/15/2025 11:11 PM EDT [facility] Chloride 107 96 - 110 mmol/L LAB CHEMISTRY METHOD 02/15/2025 11:11 PM EDT [facility] CO2 26 21 - 32 mmol/L LAB CHEMISTRY METHOD 02/15/2025 11:11 PM [facility] Anion Gap 4 3 - 11 LAB CHEMISTRY METHOD 02/15/2025 11:11 PM [facility] Glucose 108(H) 70 - 100 mg/dL LAB CHEMISTRY METHOD 02/15/2025 11:11 PM [facility] BUN 10 5 - 25 mg/dL LAB CHEMISTRY METHOD 02/15/2025 11:11 PM [facility] Creatinine 1.04 0.70 - 1.30 mg/dL LAB CHEMISTRY METHOD 02/15/2025 11:11 PM [facility] eGFR 79 >=60 mL/min/1. 73m2 LAB CHEMISTRY METHOD 02/15/2025 11:11 PM [facility] Comment:Calculation based on the Chronic Kidney Disease Epidemiology Collaboration (CKD-EPI) equation refit without adjustment for race. BUN/Creatinine Ratio 9.6 LAB CHEMISTRY METHOD 02/15/2025 11:11 PM [facility] Calcium 9.0 8.5 - 10.5 mg/dL LAB CHEMISTRY METHOD 02/15/2025 11:11 PM [facility] AST (SGOT) 20 10 - 42 unit/L LAB CHEMISTRY METHOD 02/15/2025 11:11 PM [facility] ALT (SGPT) 27 10 - 60 unit/L LAB CHEMISTRY METHOD 02/15/2025 11:11 PM [facility] Alkaline Phosphatase 127(H) 42 - 121 unit/L LAB CHEMISTRY METHOD 02/15/2025 11:11 PM [facility] Total Protein 6.6 6.0 - 8.0 g/dL LAB CHEMISTRY METHOD 02/15/2025 11:11 PM [facility] Albumin 3.8 3.2 - 5.0 g/dL LAB CHEMISTRY METHOD 02/15/2025 11:11 PM [facility] Total Bilirubin 0.7 0.0 - 1.4 mg/dL LAB CHEMISTRY METHOD 02/15/2025 11:11 PM EDT [facility] Blood Venous blood specimen / Unknown Venipuncture / Unknown 02/15/2025 10:27 PM EDT 02/15/2025 10:33 PM EDT us Tomer Holland MD LAB BLOOD ORDERABLES Final R esult [facility] [address] [place] [address], [place] [phone] * XR Chest 1 View (02/15/2025 10:20 PM EDT) Anatomical Region Laterality Modality Body Radiographic Isabel ging 02/16/2025 8:47 AM EDT Impressions 02/16/2025 8:48 AM EDT No acute findings. -------- FINAL REPORT -------- Dictated By: Raphael Denton Dictated Date: 02/16/2025 08:47 ET Assigned Physician: Raphael Denton Reviewed and Electronically Signed By: Raphael Denton Signed Date: 02/16/2025 08:48 ET Workstation ID: [id number] Transcribed By: Self Edit Transcribed Date: 02/16/2025 [...] Signed Date: 02/16/2025 08:48 ET Workstation ID: [id number] Transcribed By: Self Edit Transcribed Date: 02/16/2025 08:47 ET us Tomer Holland MD IMG XR PROCEDURES Final Resu lt * [place] [facility] 30-74 MINUTES (02/15/2025 9:22 PM [...] PM EST Narrative 06/29/2023 6:57 AM EST [facility] Diagnostic Imaging Department [address] [place] [id number] Patient: ANNA JACKSON /Age/Sex: 1960 - 63 - M Unit#: [id number] Location/Status: SPDICATLS/REG CLI Mnemonic/Ordering Site[facility] Ordering Physician: SHARIF ALY MD CT Lung Screening Low Dose - 06/15/23 - 1351 Report Status:Signed Indication: Greater than 20 total pack-year smoking history, asymptomatic former smoker Technique: Low-dose CT scan of the chest obtained as a lung cancer screening study. Multiplanar reformatted images were obtained. Dose reduction technique: ASIR (Adaptive statistical iterative reconstruction) and/or AEC (automated exposure control) COMPARISON: [id number]. FINDINGS: Lack of intravenous contrast limits evaluation [...] infectious process.1-3 month LDCT Dictating Physician: JHONNY DELONG MD Electronically Signed by: JHONNY DELONG MD Dic Date/Time: 06/29/23645 Sign date/Time: 06/29/23656 Procedure Note Jhonny Delong MD - 08/10/2023 [facility] Diagnostic Imaging Department [address] [place] [address] Patient: ANNA JACKSON Jennifer /Age/Sex: 1960 - 63 - M Unit#: [id number] [facility] Ordering Physician: SHARIF ALY MD CT Lung Screening Low Dose - 06/15/23 - 5438 Report Status:Signed Indication: Greater than 20 total pack-year smoking history,asymptomatic former smoker Technique: Low-dose CT scan of the chest obtained as a lung cancerscreening study. Multiplanar reformatted images were obtained. Dose reductiontechnique: ASIR (Adaptive statistical iterative reconstruction) and/or AEC(automated exposure control) COMPARISON: [id number]. FINDINGS: Lack of intravenous contrast limits evaluation [...] Insurance [employer] MEDICARE ADVANTAGE MEDICAID - [place] MEDICARE Advance Directives Documents on File Type Date Recorded Patient Diagnostic Radiologic Technologist Alyse anatefra Advance Directives and Living Will [...] Agents on File Name Relationship Healthcare Agent [facility] p Communication Tisha Jackson Daughter Health Care Agent Daly Jackson Daughter First Alternate Health Care Agent Care Teams Bottle Carrier Relationship Specialty Start Date End Date Sanju Disla MD [address] [place] [address] Dr [address] [place] PCP - General 05/07/1997
== END 2025-05-14 16:13 | disposition home or self-care (01) ==
LOC: HO.HMCH 15:31
PROVIDERS: PCP Internal Medicine; Visit Provider Internal Medicine
DX: J44.9 Chronic obstructive pulmonary disease, unspecified (principal); I25.10 Atherosclerotic heart disease of native coronary artery without angina pectoris; E66.9 Obesity, unspecified; Z68.30 Body mass index [BMI] 30.0-30.9, adult; E78.2 Mixed hyperlipidemia; I10 Essential (primary) hypertension; J30.9 Allergic rhinitis, unspecified; M19.91 Primary osteoarthritis, unspecified site; M51.369 Other intervertebral disc degeneration, lumbar region without mention of lumbar back pain or lower extremity pain; G62.9 Polyneuropathy, unspecified; F51.01 Primary insomnia

== ENCOUNTER → 2025-05-14 15:30 | Outpatient (BNVA) | payer MEDICARE, MEDICAID, SELFPAY | PROVIDERS: PCP Internal Medicine; Visit Provider Internal Medicine | DX: E78.2 Mixed hyperlipidemia (principal); J44.9 Chronic obstructive pulmonary disease, unspecified; I25.10 Atherosclerotic heart disease of native coronary artery without angina pectoris; I10 Essential (primary) hypertension; J30.9 Allergic rhinitis, unspecified; M19.91 Primary osteoarthritis, unspecified site; M51.369 Other intervertebral disc degeneration, lumbar region without mention of lumbar back pain or lower extremity pain; G62.9 Polyneuropathy, unspecified; F51.01 Primary insomnia; E66.9 Obesity, unspecified | CPT/HCPCS: 96127; 99212 ==

== ENCOUNTER 2025-05-21 15:17 | Outpatient (REF) | payer MEDICARE, MEDICAID, SELFPAY ==
--- NOTE | ~2025-05-21 | XR_ITS ---
EXAMINATION: XR LUMBOSACRAL SPINE CLINICAL INFORMATION: M54.50 - Low back pain, unspecified COMPARISON: November 03, 2022 TECHNIQUE: AP and lateral views FINDINGS: Multilevel endplate sclerosis endplate irregularity decreased intervertebral disc height and vacuum phenomenon from L2-3 to L5-S1. Small marginal osteophyte formation at multiple levels from L2 to S1. Grade 1 retrolisthesis, L4-5. Levoconvex rotoscoliosis, mild apex at L2-3. Facet joint hypertrophy bilaterally at L4-5 and L5-S1. No acute cortical disruption. No lytic or blastic lesions. 12 mm calcification, right upper hemiabdomen. Vascular calcifications, aorta. XR/XR lumbar spine 2-3V IMPRESSION: Multilevel lumbar spondylosis resulting in levoconvex rotoscoliosis and grade 1 retrolisthesis L4-5. Probable cholelithiasis. Electronically signed by: Socrates Engle MD 05/22/2025 07:26 AM PERI
--- OUTSIDE RECORDS SUMMARY | 2025-05-22 05:56 | XMS_ITS | Clinical Summary ---
Author Organization 175 [facility] Address [address] [place] [address] Phone Care Team Providers Care Emergency Medicine Physician Name Role Phone Sanju Disla MD Primary [...] :Chronic obstructive pulmonary disease, unspecified COPD type ([facility] V24, [facility] V28) Take 1 tablet (500 [...] breath) 02/16/2025 Coronary artery disease invo lving nenana coronary artery of nenana heart without angina pectoris 07/11/2024 Assessment & [...] Acute on chronic hypoxic res piratory failure ([facility] V24, [facility] V28) 05/15/2024 COPD exacerbation ([facility] V24, [facility] V28) 04/2024 Inclusion cyst [...] 08/10/2017 Chronic obstructive pulmonar y disease (COPD) ([facility] V24, [facility] V28) 02/11/2017 Resolved Problems Problem Noted Date Diagnosed Date Resolved Date Chest pain 07/03/2024 07/11/2024 Encounters Date Type Department Care Team Description 05/18/2025 Telephone Pulmonology - [place] [facility] [address] [place] [phone] Jayshree Gibbs MD 05/10/2025 Telephone Pulmonology - [place] [facility] [address] [place] [address] Ju Mcrae MA 05/09/2025 1:30 PM EST Office Visit Pulmonology - [place] [facility] [address] [place] [phone] Jayshree Gibbs MD Acute on chronic hypoxic respiratory failure ([facility] V24, [facility] [place] (Primary Dx); Chronic obstructive pulmonary disease, unspecified COPD type ([facility] V24, [facility] V28); Hypoxemia 05/04/2025 Telephone Lung Screening Program - [place] [address] [facility] [address] [place] [phone] Joie Craig MA 04/05/2025 11:15 AM EDT Office Visit Pulmonology [facility] [address] [phone] Jayshree Gibbs MD Acute on chronic hypoxic respiratory failure ([facility] V24, [facility] V28) (Primary Dx); Supplemental oxygen dependent; End stage chronic obstructive pulmonary disease ([facility] V24, [facility]/H[facility] V28); Acute on chronic respiratory failure with hypoxia and hypercapnia ([facility] V24, [facility] V28) 03/29/2025 9:29 AM EDT - 03/29/2025 1:15 PM EDT Emergency [facility] Emergency [address] [place] [address] Near syncope (Primary Dx) Discharge Disposition: Home or Self Care 03/20/2025 12:14 PM EDT - 03/20/2025 4:24 PM EDT Emergency [facility] Emergency [address] [place] [address] COPD exacerbation ([facility] V24, [facility] V28) (Primary Dx) Discharge Disposition: Home or Self Care 03/20/2025 Telephone Pulmonology - [address] [address] Jayshree Gibbs MD 03/07/2025 2:45 PM EDT Office Visit Pulmonology [address] [address] Jayshree Gibbs MD Acute on chronic hypoxic respiratory failure ([facility] V24, [facility] V28) (Primary Dx); Supplemental oxygen dependent; Pulmonary emphysema, unspecified emphysema type ([facility] V24, [facility] V28) from Last 3 Months Immunizations Immunization Administration Dates Next Due Influenza Quadravalent, MDCK , 0.5ml, preservative free (Flucelvax) 6mo and older 04/28/2022 Surgical History Surgery Date Site/Laterality Comments KNEE SURGERY PROCEDURE: HISTORICAL KNEE SURGERY DENTAL SURGERY PROCEDURE: MS UNLISTED PROCEDURE DENTOALVEOLAR STRUCTURES Medical History Medical History Date Comments Arthritis DX:Arthritis Cholelithiasis 08/10/2017 DX:Cholelithiasi s Diverticulosis 08/10/2017 DX:Diverticulosi s Hyperlipidemia 08/10/2017 DX:Hyperlipidemi a Tobacco use 02/11/2017 DX:Tobacco use Chronic obstructive pulmonar y disease (COPD) ([facility] V24, [facility] V28) 02/11/2017 DX:Chronic obstructi ve pulmonary disease (COPD) ([facility]) Supplemental oxygen dependent 08/10/2017 [...] Info) Description 05/24/2025 5:30 PM EST Appointment [facility] CT Scan [address] [place] [phone] 11/14/2025 1:00 PM EDT Office Visit Pulmonology - [place] 175 [facility] [address] [place] [address] Jayshree Gibbs MD [address] [place] [phone] Health Maintenance Due Date Last Done [...] ECG 12-LEAD STAT 03/20/2025 12:[address] LUNG SCREENING LOW DOSE Routine 06/29/2023 6:57 AM EST Encounter for screening for malignant neoplasm of respiratory organs from Last 3 Months or Most Recently Relevant to Health Maintenance Results * ECG-Annotated (03/30/2025) Only the most recent of2 resultswithin the [...] Signed Date: 03/29/2025 11:02 ET Workstation ID: [id number] Transcribed By: Self Edit Transcribed Date: 03/29/2025 [...] Signed Date: 03/29/2025 11:02 ET Workstation ID: [id number] Transcribed By: Self Edit Transcribed Date: 03/29/2025 11:00 ET us Philip HARRISON IMG XR PROCEDURES Final Resu lt * (ABNORMAL) CBC auto differential (03/29/2025 9:24 AM EDT) Only the most recent of2 resultswithin the time period is included. WBC 9.0 4.8 - 10.8 K/mcL LAB HEMETOLOGY METHOD 03/29/2025 10:04 AM EDT [facility] RBC 4.60 4.50 - 5.50 M/mcL LAB HEMETOLOGY METHOD 03/29/2025 10:04 AM EDT [facility] Hemoglobin 14.0 13.5 - 17.5 g/dL LAB HEMETOLOGY METHOD 03/29/2025 10:04 AM [facility] Hematocrit 41.0(L) 42.0 - 54.0 % LAB HEMETOLOGY METHOD 03/29/2025 10:04 AM [facility] MCV 89.3 79.0 - 98.0 FL LAB HEMETOLOGY METHOD 03/29/2025 10:04 AM [facility] MCH 30.5 27.0 - 32.0 pcg LAB HEMETOLOGY METHOD 03/29/2025 10:04 AM [facility] MCHC 34.1 32.0 - 37.0 g/dL LAB HEMETOLOGY METHOD 03/29/2025 10:04 AM [facility] RDW 12.4 11.0 - 15.0 % LAB HEMETOLOGY METHOD 03/29/2025 10:04 AM [facility] Platelets 215 130 - 400 K/mcL LAB HEMETOLOGY METHOD 03/29/2025 10:04 AM [facility] MPV 9.1 7.0 - 11.0 FL LAB HEMETOLOGY METHOD 03/29/2025 10:04 AM [facility] NRBC 0.0 <1.0 % LAB HEMETOLOGY METHOD 03/29/2025 10:04 AM [facility] NRBC Absolute 0.00 <0.10 K/mcL LAB HEMETOLOGY METHOD 03/29/2025 10:04 AM [facility] Neutrophils Relative 68.5 % LAB HEMETOLOGY METHOD 03/29/2025 10:04 AM [facility] Lymphocytes Relative 18.3 % LAB HEMETOLOGY METHOD 03/29/2025 10:04 AM [facility] Monocytes Relative 9.1 % LAB HEMETOLOGY METHOD 03/29/2025 10:04 AM [facility] Eosinophils Relative 3.0 % LAB HEMETOLOGY METHOD 03/29/2025 10:04 AM EDT [facility] Basophils Relative 0.4 % LAB HEMETOLOGY METHOD 03/29/2025 10:04 AM EDT [facility] Immature Granulocytes Relative 0.7 % LAB HEMETOLOGY METHOD 03/29/2025 10:04 AM EDT [facility] Neutrophils Absolute 6.19 1.50 - 7.00 K/mcL LAB HEMETOLOGY METHOD 03/29/2025 10:04 AM EDT [facility] Lymphocytes Absolute 1.65 1.00 - 5.00 K/mcL LAB HEMETOLOGY METHOD 03/29/2025 10:04 AM EDT [facility] Monocytes Absolute 0.82 0.20 - 1.00 K/mcL LAB HEMETOLOGY METHOD 03/29/2025 10:04 AM EDT [facility] Eosinophils Absolute 0.27 0.00 - 0.50 K/mcL LAB HEMETOLOGY METHOD 03/29/2025 10:04 AM EDT [facility] Basophils Absolute 0.04 0.00 - 0.20 K/mcL LAB HEMETOLOGY METHOD 03/29/2025 10:04 AM EDT [facility] Immature Granulocytes Absolute 0.06(H) 0.00 - 0.03 K/mcL LAB HEMETOLOGY METHOD 03/29/2025 10:04 AM EDT [facility] Blood Venous blood specimen / Unknown Venipuncture / Unknown 03/29/2025 9:24 AM EDT 03/29/2025 9:53 AM EDT us Philip HARRISON LAB BLOOD ORDERABLES Final R esult [facility] [address] [place] [address], * Magnesium (03/29/2025 9:24 AM EDT) Only the most recent of2 resultswithin the time period is included. Magnesium 2.0 1.9 - 2.6 mg/dL LAB CHEMISTRY METHOD 03/29/2025 10:20 AM [facility] Blood Venous blood specimen / Unknown Venipuncture / Unknown 03/29/2025 9:24 AM EDT 03/29/2025 9:53 AM EDT us Philip HARRISON LAB BLOOD ORDERABLES Final R esult [facility] [address] [place] [address], [place] [phone] * (ABNORMAL) Basic metabolic panel (03/29/2025 9:24 AM EDT) Only the most recent of2 resultswithin the time period is included. Pathologist [facility] Sodium 139 133 - 145 mmol/L LAB CHEMISTRY METHOD 03/29/2025 10:20 AM [facility] Potassium 4.3 3.5 - 5.5 mmol/L LAB CHEMISTRY METHOD 03/29/2025 10:20 AM [facility] Chloride 108 96 - 110 mmol/L LAB CHEMISTRY METHOD 03/29/2025 10:20 AM [facility] CO2 28 21 - 32 mmol/L LAB CHEMISTRY METHOD 03/29/2025 10:20 AM [facility] Anion Gap 3 3 - 11 LAB CHEMISTRY METHOD 03/29/2025 10:20 AM [facility] Glucose 108(H) 70 - 100 mg/dL LAB CHEMISTRY METHOD 03/29/2025 10:20 AM [facility] BUN 16 5 - 25 mg/dL LAB CHEMISTRY METHOD 03/29/2025 10:20 AM [facility] Creatinine 1.01 0.70 - 1.30 mg/dL LAB CHEMISTRY METHOD 03/29/2025 10:20 AM EDT [facility] eGFR 82 >=60 mL/min/1. 73m2 LAB CHEMISTRY METHOD 03/29/2025 10:20 AM EDT [facility] Comment:Calculation based on the Chronic Kidney Disease Epidemiology Collaboration (CKD-EPI) equation refit without adjustment for race. BUN/Creatinine Ratio 15.8 LAB CHEMISTRY METHOD 03/29/2025 10:20 AM EDT [facility] Calcium 8.9 8.5 - 10.5 mg/dL LAB CHEMISTRY METHOD 03/29/2025 10:20 AM EDT [facility] Blood Venous blood specimen / Unknown Venipuncture / Unknown 03/29/2025 9:24 AM EDT 03/29/2025 9:53 AM EDT Philip HARRISON LAB BLOOD ORDERABLES Final R esult [facility] [address] [place] [address], [place] [phone] * ECG 12 lead (03/29/2025 9:19 AM EDT) Only the most recent of2 resultswithin the time period is included. Ventricular Rate ECG 91 BPM GEMUSE Atrial Rate 91 BPM GEMUSE P-R Interval 122 ms GEMUSE QRS Duration 140 ms GEMUSE Q-T Interval 382 ms GEMUSE QTc 469 ms GEMUSE P Wave [place] 5 degrees GEMUSE R [place] 88 degrees GEMUSE T [place] 40 degrees GEMUSE ECG Interpretation Normal sinus rhythm Right bundle branch block Abnormal ECG When compared with ECG of 20-MAR-2025 12:21, Premature supraventricular complexes are no longer Present Confirmed by Layton DEE JOHN ([id number]) on 03/29/2025 1:19:46 PM GEMUSE 03/29/2025 9:19 AM EDT 03/29/2025 1:19 PM EDT us Philip HARRISON ECG ORDERABLES Final Result Performing Organization Address City/[facility]/ZIP Co de Phone Number GEMUSE * Troponin I high sensitivity (03/20/2025 1:23 PM EDT) Only the most recent of2 resultswithin the time period is included. [facility] High Sensitivity Troponin I 7 <=79 ng/L LAB CHEMISTRY METHOD 03/20/2025 2:19 PM EDT [facility] Blood Venous blood specimen / Unknown Venipuncture / Unknown 03/20/2025 1:23 PM EDT 03/20/2025 2:[address] [facility] - 03/20/2025 2:19 PM EDT High levels of biotin in samples may falsely decrease hsTroponin values. Use caution when interpreting hsTroponin results in patients taking biotin who exhibit renal impairment (eGFR <60) or in patients taking more than 20 mg/day of biotin. Rashida Rangel MD LAB BLOOD ORDERABLES Final Resul t Performing Organization Address City/[facility]/ZIP Co de Phone Number [facility] [address] [place] [address], * Respiratory virus panel molecular study (03/20/2025 12:26 PM EDT) [facility] Adenovirus Detection by PCR Not Detected Not Detected LAB MICROBIOLOGY METHOD 03/20/2025 2:27 PM EDT [facility] Influenza A PCR Not Detected Not Detected LAB MICROBIOLOGY METHOD 03/20/2025 2:27 PM EDT [facility] Influenza B PCR Not Detected Not Detected LAB MICROBIOLOGY METHOD 03/20/2025 2:27 PM EDT [facility] Coronavirus 229E Not Detected Not Detected LAB MICROBIOLOGY METHOD 03/20/2025 2:27 PM EDT [facility] Coronavirus HKU1 Not Detected Not Detected LAB MICROBIOLOGY METHOD 03/20/2025 2:27 PM EDT [facility] Coronavirus OC43 Not Detected Not Detected LAB MICROBIOLOGY METHOD 03/20/2025 2:27 PM EDT [facility] Coronavirus NL63 Not Detected Not Detected LAB MICROBIOLOGY METHOD 03/20/2025 2:27 PM EDT [facility] Parainfluenza Virus 1 Not Detected Not Detected LAB MICROBIOLOGY METHOD 03/20/2025 2:27 PM EDT [facility] Parainfluenza Virus 2 Not Detected Not Detected LAB MICROBIOLOGY METHOD 03/20/2025 2:27 PM EDT [facility] Parainfluenza Virus 3 Not Detected Not Detected LAB MICROBIOLOGY METHOD 03/20/2025 2:27 PM EDT [facility] Parainfluenza Virus 4 Not Detected Not Detected LAB MICROBIOLOGY METHOD 03/20/2025 2:27 PM EDT [facility] RSV PCR Not Detected Not Detected LAB MICROBIOLOGY METHOD 03/20/2025 2:27 PM EDT [facility] Human Metapneumovirus A and B Not Detected Not Detected LAB MICROBIOLOGY METHOD 03/20/2025 2:27 PM EDT [facility] Rhinovirus/Entero virus Not Detected Not Detected LAB MICROBIOLOGY METHOD 03/20/2025 2:27 PM EDT [facility] Bordetella pertussis Not Detected Not Detected LAB MICROBIOLOGY METHOD 03/20/2025 2:27 PM EDT [facility] Bordetella parapertussis Not Detected Not Detected LAB MICROBIOLOGY METHOD 03/20/2025 2:27 PM EDT [facility] Mycoplasma pneumo by PCR Not Detected Not Detected LAB MICROBIOLOGY METHOD 03/20/2025 2:27 PM EDT [facility] Chlamydia pneumoniae Not Detected Not Detected LAB MICROBIOLOGY METHOD 03/20/2025 2:27 PM EDT [facility] SARS COV-2 Not Detected Not Detected LAB MICROBIOLOGY METHOD 03/20/2025 2:27 PM EDT [facility] Swab Both anterior nares / Unknown Non-blood Collection / Unknown 03/20/2025 12:26 PM EDT 03/20/2025 1:25 PM EDT Narrative [facility] - 03/20/2025 2:27 PM EDT Testing was performed using the Purplle Respiratory Pathogen PCR Assay. All results must [...] ORDER TAYLOR Final Result Performing Organization Address [facility]/ZIP Co de Phone Number [facility] [address] [place] [address], [place] [phone] * B-type natriuretic peptide (03/20/2025 12:24 PM EDT) BNP 75 <=100 pcg/mL LAB CHEMISTRY METHOD 03/20/2025 2:02 PM EDT [facility] Blood Venous blood specimen / Unknown Venipuncture / Unknown 03/20/2025 12:24 PM EDT 03/20/2025 1:25 PM EDT us Rashida Rangel MD LAB BLOOD ORDERABLES Final Resul t Performing Organization Address City/[facility]/ZIP Co de Phone Number [facility] [address] [place] [address], [place] [phone] * CT LUNG SCREENING LOW DOSE (06/29/2023 6:57 AM EST) Anatomical Region Laterality Modality Computed Tomogra phy 06/15/2023 1:42 PM EST Narrative 06/29/2023 6:57 AM EST [facility] Diagnostic Imaging Department [address] [place] [address] Patient: ANNA JACKSON /Age/Sex: 1960 - 63 - M Unit#: [id number] Location/Status: SPDICATLS/REG CLI [facility]emonic[facility] Order[place] Physician: SHARIF ALY MD CT Lung Screening Low Dose - 06/15/23 - [id number] Report Status:Signed Indication: Greater than 20 total pack-year smoking history, asymptomatic former smoker Technique: Low-dose CT scan of the chest obtained as a lung cancer screening study. Multiplanar reformatted images were obtained. Dose reduction technique: ASIR (Adaptive statistical iterative reconstruction) and/or AEC (automated exposure control) COMPARISON: [id number]. FINDINGS: Lack of intravenous contrast limits evaluation [...] Procedure Note Jhonny Patel MD - 08/10/2023 [facility] Diagnostic Imaging Department [address] [place] [address] Patient: ANNA JACKSON Jennifer /Age/Sex: 1960 - 63 - M Unit#: [id number] [facility] Mnemonic/Ordering Site: [facility] Ordering Physician: SHARIF ALY MD CT Lung Screening Low Dose - 06/15/23 - [id number] Report Status:Signed Indication: Greater than 20 total pack-year smoking history,asymptomatic former smoker Technique: Low-dose CT scan of the chest obtained as a lung cancerscreening study. Multiplanar reformatted images were obtained. Dose reductiontechnique: ASIR (Adaptive statistical iterative reconstruction) and/or AEC(automated exposure control) COMPARISON: [id number]. 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
--- OUTSIDE RECORDS SUMMARY | 2025-05-22 05:57 | XMS_ITS | Encounter Summary ---
Author Organization [facility] Address [address] [place] [address] Care Team Providers Care Auto Dealership Porter Name Role Phone Sanju Disla MD Primary Care Provider Reason for Visit * Reason Onset Date Comments DME-oxygen 05/10/2025 Encounter Details Date Type Department Care Team (Late st Contact Info) Description 05/10/[address] [facility] [address] [facility] [address] [place] [address] Ju Mcrae MA Social History [...] documented in this encounter Progress Notes * Josias Rayo MA - 05/18/2025 10:21 AM EST Pt is a [facility] pt. Please send oxygen order to [facility]. * Ju Johnson MA - 05/10/2025 2:03 PM EST Order sent to barrie documented in this encounter Plan of Treatment Upcoming Encounters Date Type Department Care Team (Late st Contact Info) Description 05/24/2025 5:30 PM EST Appointment [facility] CT Scan [address] [place] [phone] 11/14/2025 1:00 PM EDT Office Visit Pulmonology - [place] 175 [facility] [address] [place] [phone] Jayshree Gibbs MD [address] [place] [address] documented as of this encounter Visit Diagnoses Not on filedocumented in this encounter Care Teams Auto Dealership Porter Relationship Specialty Start Date End Date Sanju Disla MD [address] [place] [address] Dr [address] [place], [place] PCP - General 05/07/1997 documented as of this encounter
--- OUTSIDE RECORDS SUMMARY | 2025-05-22 05:58 | XMS_ITS | Encounter Summary ---
Author Organization [facility] Address [address] [place] [address] Care Team Providers Care Electrician Outside Name Role Phone Sanju Disla MD Primary Care Provider Reason for Visit * Reason Onset Date Comments durable medical equipment 05/18/2025 Encounter Details Date Type Department Care Team (Late st Contact Info) Description 05/18/2025 Telephone Pulmonology [facility] 175 [facility] [address] [place] [address] Jayshree Gibbs MD [address] [place] [address] Social History Tobacco Use Types Packs/Day Years [...] Cam Fuller RN documented in this encounter Progress Notes * Josias Rayo MA - 05/18/2025 10:24 AM EST Faxed to [facility] * Josias Rayo MA - 05/18/2025 10:23 AM EST I will send at this time. * Tolu Chi - 05/18/2025 9:49 AM EST Patient called to notify that [facility] hasn't received the order for POC. Please advice. documented in this encounter Plan of Treatment Upcoming Encounters Date Type Department Care Team (Late st Contact Info) Description 05/24/2025 5:30 PM EST Appointment [facility] CT Scan [address] [place] [phone] 11/14/2025 1:00 PM EDT Office Visit Pulmonology - [place] 175 [facility] [address] [place] [phone] Jayshree Gibbs MD [address] [place] [phone] documented as of this encounter Visit Diagnoses Not on filedocumented in this encounter Care Teams Electrician Outside Relationship Specialty Start Date End Date Sanju Disla MD [address] [place] [address] Dr [address] [place], [place] PCP - General 05/07/1997 documented as of this encounter
== END 2025-05-21 15:18 | disposition home or self-care (01) ==
LOC: HO.XRAY 15:17
PROVIDERS: PCP Internal Medicine; Visit Provider Internal Medicine
DX: M54.50 Low back pain, unspecified (principal)
CPT/HCPCS: 72100

== ENCOUNTER → 2025-05-21 15:21 | Outpatient (BNV) | payer MEDICARE, MEDICAID, SELFPAY | PROVIDERS: PCP Internal Medicine; Visit Provider Radiology Diagnostic Radiology | DX: M47.816 Spondylosis without myelopathy or radiculopathy, lumbar region (principal); M41.86 Other forms of scoliosis, lumbar region | CPT/HCPCS: 72100 ==

== ENCOUNTER 2025-07-03 12:48 | Outpatient (AMB) | payer MEDICARE, MEDICAID, SELFPAY ==
--- NOTE | 2025-07-03 12:53 | MHC.OFFVIS ---
Vital Signs 07/03/25 12:58 Height 6 ft Weight 231 lb BMI 31.3 BP 142/78 H Blood Pressure Location Lt brachial Position Sitting Pulse 94 Pulse Source Pulse Oximeter Pulse Oximetry (%) 94 Oxygen Delivery Method Room Air Intake Visit Reasons: Discuss abd pain + constipation exacerbation. Intake Note: ESTABLISHED PATIENT for GERD + CIC mgmt. CC; C/O LUQ pain. Taking pepto BID which seems to help relieve the pain. Has BM daily with current regimen. Flavorings Compounder Required: No Accompanied by: Self / Same As Patient Allergies tamsulosin Adverse Reaction (Intermediate, Verified 05/14/25 15:57) dizziness, headaches HPI HPI Discuss abd pain + constipation exacerbation.: Details: LAST VISIT Constipation GERD without esophagitis Plan Cologuard order placed. If positive we will have to discuss this with his quality officer as patient was told before that he should not have anesthesia unless it is emergency surgery. His symptoms of reflux are controlled with pantoprazole. He can continue that. Continue regimen for constipation with Dulcolax and stool softener. Patient will follow-up in our office as needed. Patient is agreeable to this plan and verbalizes understanding of instructions. He was given the opportunity to ask questions and all questions answered. ? Thank you for allowing me to participate in his care New pantoprazole 40 mg PO DAILY 90 tabs 5RF Refilled bisacodyl (Gentle Laxative (bisacodyl)) 10 mg (2 x 5 mg) PO BEDTIME 180 tabs 5RF docusate sodium 100 mg PO BEDTIME 90 caps 5RF K59.00 TODAY'S VISIT Patient is here today for request visit. Patient reports in the past few weeks he has been having worsening left upper quadrant pain. Patient reports that he is taking Linzess 145 mcg in the morning and then to of the Dulcolax tablets in the evening. Patient usually has a bowel movement 1-2 hours after he takes Linzess and then hour later begins with severe cramping in the left upper quadrant. Patient admits that he is not drinking lots of fluid. Mainly drinks Coca-Cola. Patient is not eating fiber either. Patient reports that he takes Pepto-Bismol when he gets the cramps and the cramps subsided, however occasionally he has to take it again as the cramps get worse towards the evening time. Patient denies any nausea or vomiting. Denies any dyspepsia, dysphagia or odynophagia. He is taking pantoprazole every morning half an hour before breakfast and reports that symptoms of acid reflux have been suppressed. Patient denies melena, hematochezia, unintentional weight loss or ribbon like stools. This happens 2 to 3 times a week. When he takes Pepto-Bismol his stool is black. Patient had negative Cologuard in October of this year. Patient reports that when he took magnesium citrate half a bottle he had a good affect PFSH Medical History Oral thrush Allergic rhinitis Overweight (BMI 25.0-29.9) Constipation Atherosclerotic cardiovascular disease Swelling of left lower extremity Vitamin B12 deficiency GERD without esophagitis Anterior chest wall pain Mixed hyperlipidemia Primary insomnia Urinary frequency Neuropathy Vitamin D deficiency Osteoarthritis Lumbar degenerative disc disease Impaired fasting glucose Benign essential hypertension COPD (chronic obstructive pulmonary disease) Headache Epidermoid cyst Surgical History History of total right knee replacement History of cardiac cath History of colonoscopy Family History Father Colon cancer Mother Medical history unknown Social History Housing: Apartment Alcohol intake: former Patient Tobacco Use Status: Current everyday Tobacco user Tobacco use type: Cigarette Cigarettes Per Day: 15 Years Smoked: 30 +/- e-Cigarette/Vaping Use: Never Used Second Hand Smoke Exposure: Yes service: No Current occupational status: disabled Cognitive needs: No Hearing needs: Yes Vision needs: Yes (reading glasses) Review of Systems Const Denies weight gain and Denies weight loss ENT Reports no additional complaints, Denies dysphagia and Denies odynophagia Card Reports no additional complaints Resp Reports no additional complaints GI Denies abdominal pain, Denies belching, Denies melena, Denies bloating, Denies change in bowel habits, Reports constipation, Denies dysphagia, Denies excessive flatus, Denies dyspepsia, Reports heartburn (Occasional), Denies diarrhea, Denies loose stools, Denies nausea, Denies odynophagia and Denies vomiting Reports no additional complaints Musc Reports no additional complaints Neuro Reports no additional complaints Psych Reports no additional complaints Endo Reports no additional complaints Physical Exam Vital Signs: Last Vital Signs Pulse 94 07/03/25 12:58 BP 142/78 H 07/03/25 12:58 Pulse Ox 94 07/03/25 12:58 Oxygen Delivery Method Room Air 07/03/25 12:58 BMI result Body Mass Index 31.3 Const General: no acute distress Nutritional Appearance: obese Orientation/consciousness: patient oriented x3 Resp Effort & Inspection: normal respiratory effort, able to speak in complete sentences, no tracheal deviation and symmetric chest movement Auscultation: clear to auscultation bilaterally Cardio Rate: regular rate Heart sounds: S1 normal heart sound present and S2 normal heart sound present GI Inspection: Yes normal to inspection, No distended and Yes obesity Palpation (GI): Soft to palpation, not firm, nontender and No hepatosplenomegaly present Auscultation: normal bowel sounds General: Yes no CVA tenderness Back/Spine/Pelvis Back: no CVA tenderness Skin General skin exam: elasticity normal, turgor normal and dry skin Neuro General: patient oriented x3 Psych Appearance: grossly normal Mental Status: mental status grossly normal Assessment & Plan Assessment & Plan (1) Constipation: Code(s): K59.00 - Constipation, unspecified Category: Medical Qualifiers: Constipation type: chronic idiopathic constipation Qualified Code(s): K59.04 - Chronic idiopathic constipation (2) GERD without esophagitis: Code(s): K21.9 - Gastro-esophageal reflux disease without esophagitis Category: Medical (3) Abdominal pain, LUQ (left upper quadrant): Code(s): R10.12 - Left upper quadrant pain Plan Will increase Linzess to 290 mcg daily. Patient can continue taking Dulcolax as needed. Encourage patient to increase fluid intake and activity to promote better bowel motility. Patient will eat more fiber. May take probiotics as well. Continue pantoprazole. Follow-up in 2 months, sooner on as needed basis. Patient is agreeable to this plan and verbalizes understanding of instructions. He was given the opportunity to ask questions and all questions answered. Thank you for allowing me to participate in his care Medications: New linaclotide (Linzess) 290 mcg PO QAM 30 caps 4RF K59.00 - Constipation, unspecified magnesium citrate 150 mL PO DAILY PRN 296 mL 5RF constipation K59.00 - Constipation, unspecified Discontinued linaclotide (Linzess) Discontinued Reason: Doctor's Order 145 mcg PO DAILY 30 caps 4RF K59.04 - Chronic idiopathic constipation Coding Level of Care Code Est Pt Level 4 (04442) Add On Problem Visit Only Diagnoses Chronic idiopathic constipation K59.04 Constipation type: chronic idiopathic constipation GERD without esophagitis K21.9 Abdominal pain, LUQ (left upper quadrant) R10.12 Time Spent (min) 40 Comment 25 minutes spent with patient and additional 15 minutes spent reviewing his records
[2025-07-03 12:58] VITALS: BP 142/78; PULSE 94; O2SAT 94; BMI 31.3
--- OUTSIDE RECORDS SUMMARY | 2025-07-03 16:41 | XMS_ITS | Encounter Summary ---
Author Organization [facility] Address [address] [place] [address] Care Team Providers Care Launch Check Out Name Role Phone Sanju Disla MD Primary Care Provider Reason for Visit * Reason Onset Date Comments Scheduling Recall 06/25/2025 Encounter Details Date Type Department Care Team (Late st Contact Info) Description 06/25/2025 Telephone [facility] [address] [place] [address] Winifred Abebe NP [address] [place] [address] Dr [address] [place] [address] Social History Tobacco Use Types Packs/Day Years Used Date Smoking Tobacco: Former Cigarettes 0.5 55 S tarted: 07/05/1970 Smokeless Tobacco: Never Quit: [...] of Assessment Author No 02/16/2025 11:45 AM KARINT Cam Guillermo RN * Do you have [...] documented in this encounter Progress Notes * Nelli Garcia - 06/29/2025 10:08 AM EST Patient called scheduled appointment on 10/03/25 * Nevin Handley - 06/25/2025 11:33 AM EST Left message for patient to schedule followup from recall. documented in this encounter Plan of Treatment Upcoming Encounters Date Type Department Care Team (Late st Contact Info) Description 10/03/2025 2:40 PM EDT Office Visit [facility] [address] [facility] [address] [place] [address] Winifred Abebe NP [address] [place] [address] [address] [place] [phone] 11/14/2025 1:00 PM EDT Office Visit Pulmonology - [place] [address] [facility] [address] [place] [phone] Jayshree Gibbs MD [address] [place] [phone] documented as of this encounter Visit Diagnoses Not on filedocumented in this encounter Care Teams Launch Check Out Relationship Specialty Start Date End Date Sanju Disla MD [address] [place] [address] [address] [place], [place] PCP - General 05/07/1997 documented as of this encounter
--- OUTSIDE RECORDS SUMMARY | 2025-07-03 16:41 | XMS_ITS | Patient Health Record ---
Author Organization [facility] Address [address] [place] [address] Care Team Providers Care Water Resources Technical Officer Name Role Phone Naif RUCKER, [place] Primary Care Provider Rustam Vega Jr Reason For Referral No Information Medications Medication SIG (Take, Route, Frequency, Duration) Notes Start Date End Date Status Advair HFA Active ProAir HFA Active Albuterol Active Gemfibrozil Active Lisinopril Active Colyte with Flavor Packs 240 GM Solution Reconstituted As directed Orally Over the specified time.; Duration: 1 day(s) 08/30/2013 Active Social History Social History Additional Details Category Social Info Options Details Miscellaneous: Marital status: single Occupation: unemployed Problems Problem Type SNOMED Code ICD Code Onset Dates Problem Status W/U Status Risk Notes Problem Colon cancer screening (203807339) Colon cancer screening (V76.51) Active confirmed Plan Of Treatment Future Test Test Name Order Date COLONOSCOPY 08/30/2013 Insurance Providers Payer Name Payer Address Payer Phone Subscriber Number Group Number Insured Name Patient Relationship to Insured Coverage Start Date Coverage End Date [employer]/ 21-64 Yrs [address] [address] [place] [id number] ANNA MCKEON Self - patient is the insured Medicare of [facility] [address] [place] [address] [id number] ANNA MCKEON Self - patient is the insured MEDICAID OF [facility] [address] [place] [address] [id number] ANNA MCKEON Self - patient is the insured Medical (General) History Medical History History ICD Code colonoscopy 11-07-2008 colon polyps asthma bronchitis elevated cholesterol hypertension Surgical History Surgery Date(Month/Year) knee arthroscopy
--- OUTSIDE RECORDS SUMMARY | 2025-07-03 16:41 | XMS_ITS | Clinical Summary ---
Author Organization [address] [facility] Address [address] [place] [address] Phone Care Team Providers Care Developer Relations Manager Name Role Phone Sanju Disla MD [...] (one) time each day. 1 each 11 03/09/20 Active roflumilast (DALIRESP) 500 mcg tabletIndications :Chronic obstructive pulmonary disease, unspecified COPD type (CMS/HCC V24, CMS/HCC V28) Take 1 tablet (500 mcg total) by mouth 1 (one) time each day. 30 each 05/09/20 Active albuterol HFA (PROAIR HFA ; PROVENTIL HFA ; VENTOLIN HFA) 90 mcg/actuation inhaler Inhale 2 puffs by mouth every 4 (four) hours if needed for wheezing. 18 g 3 05/09/20 Active inhalational spacing device (Aerochamber MV) inhaler Use as instructed 1 each 06/05/20 25 Active Active Problems Problem Noted Date Diagnosed Date SOB (shortness of breath) 02/16/2025 Coronary artery disease invo lving chilkat coronary artery of chilkat heart without angina pectoris 07/11/2024 Assessment & [...] Encounters Date Type Department Care Team Description 06/25/2025 Telephone [facility] [address] [place] [address] Winifred Abebe NP 06/13/[address] [facility] [address] [phone] Jayshree Gibbs MD 06/01/[address] [facility] [address] [phone] Jayshree Gibbs MD 05/24/2025 5:17 PM EST - 05/24/2025 11:59 PM EST Hospital Encounter [facility] CT Scan [address] [place] [phone] Encounter for screening for malignant neoplasm of respiratory organs; Personal history of nicotine dependence Discharge Disposition: Home or Self Care 05/18/[address] [facility] [address] [phone] Jayshree Gibbs MD 05/10/[address] [facility] [address] [phone] Ju Mcrae [place] 05/09/2025 1:30 PM EST Office Visit Pulmonology - [place] [address] [facility] [address] [place] [phone] Jayshree Gibbs MD Acute on chronic hypoxic respiratory failure ([facility] V24, [facility] V28) (Primary Dx); Chronic obstructive pulmonary disease, unspecified COPD type ([facility] V24, [facility] V28); Hypoxemia 05/04/2025 Telephone Lung Screening Program - [place] [address] [facility] [address] [place] [phone] Joie Craig [place] 04/05/2025 11:15 AM EDT Office Visit Pulmonology - [place] [address] [facility] [address] [place] [phone] Jayshree Gibbs MD Acute on chronic hypoxic respiratory failure ([facility] V24, [facility] V28) (Primary Dx); Supplemental oxygen dependent; End stage chronic obstructive pulmonary disease ([facility] V24, [facility] V28); Acute on chronic respiratory failure with hypoxia and hypercapnia ([facility] V24, [facility] V28) from Last 3 Months Immunizations Immunization Administration Dates Next Due Influenza Quadravalent, MDCK , 0.5ml, preservative free (Flucelvax) 6mo and older 04/28/2022 Surgical History Surgery Date Site/Laterality Comments KNEE SURGERY PROCEDURE: HISTORICAL KNEE SURGERY DENTAL SURGERY PROCEDURE: [place] UNLISTED PROCEDURE DENTOALVEOLAR STRUCTURES Medical History Medical History Date Comments Arthritis DX:Arthritis Cholelithiasis 08/10/2017 DX:Cholelithiasi s Diverticulosis 08/10/2017 DX:Diverticulosi s Hyperlipidemia 08/10/2017 DX:Hyperlipidemi a Tobacco use 02/11/2017 DX:Tobacco use Chronic obstructive pulmonar y disease (COPD) ([facility] V24, [facility] V28) 02/11/2017 DX:Chronic obstructi ve pulmonary disease (COPD) ([facility]) Supplemental oxygen dependent 08/10/2017 DX [...] Orientation Straight 05/16/2024 12 :44 AM EST Last Filed Vital Signs Vital Sign Reading [...] Description 10/03/2025 2:40 PM EDT Office Visit [facility] - [facility] [address] [place] [address] Winifred Abebe NP [address] [place] [address] [address] [place] [phone] 11/14/2025 1:00 PM EDT Office Visit Pulmonology - [place] [address] [facility] [address] [place] [address] Jayshree Gibbs MD [address] [place] [phone] Health Maintenance Due Date Last Done [...] 05/04/2026 05/04/2016 Zoster Vaccines Completed 04/09/2020, 09/01/2019 RSV Immunization Adult Patients Completed 05/31/2024 Lung Cancer Screening (Low Dose CT) Discontinued 05/24/2025, 06/29/2023, 06/05/2022, Additional history exists HIB Vaccines Aged Out No longer eligi [...] Name Priority Date/Time Associated Diagnosis Comments CT LUNG SCREENING Routine 05/24/2025 5:3 0 PM EST Encounter for screening for malignant neoplasm of respiratory organs Personal history of nicotine dependence BASIC METABOLIC PANEL STAT 03/29/2025 9:24 AM EDT from Last 3 Months or Most Recently Relevant to Health Maintenance Results * CT Lung Screening (05/24/2025 5:30 PM EST) Anatomical Region Laterality Modality Chest Computed Tomogra phy 06/05/2025 2:51 PM EST Impressions 06/05/2025 3:02 PM EST Impression: No suspicious developing pulmonary nodule. No significant change. Lung-RADS Category: Lung-RADS 2: Nodule(s) with benign appearance or behavior. Continue annual screening with Low Dose Chest CT in 12 months. Telerad HUNTER ([id number]) -------- FINAL REPORT -------- Dictated By: Breanne Leo Dictated Date: 06/05/2025 14:51 ET Assigned Physician: Breanne Leo Reviewed and Electronically Signed By: Breanne Leo Signed Date: 06/05/2025 15:02 ET Workstation ID: [id number] Transcribed By: Self Edit Transcribed Date: 06/05/2025 14:51 ET Narrative 06/05/2025 3:02 PM EST History: 65 year-old 69 pack-year former smoker, asymptomatic, for lung cancer screening. Quit smoking 7 years ago. Comparison: 05/15/24, 06/15/23 Technique: Helical volumetric imaging of the thorax was performed, using low- dose technique, without IV contrast. DLP: 167.13 mGy/cm CTDIvol: 4.89 mGy All Def Digital Rudy Iterative reconstruction technique Findings: Lungs and Airways: The trachea and central bronchial tree remain patent. Diffuse bronchial wall thickening is again seen, consistent with bronchitis. Minimal foamy debris is seen within the dependent portion of the right main bronchus, compatible with mucous. There is severe emphysematous destruction of the pulmonary parenchyma. Coarse bandlike opacity in the right upper lobe, extending from the mediastinal pleura to the lateral pleura is without significant change since at least 2022, consistent with scarring. Juxtapleural atelectasis at the base of the right middle lobe and lingula is without significant change. Scattered foci of peripheral tree-in-bud opacity are again seen, consistent with chronic distal airways infection/mucous plugging. A 4 mm solid, noncalcified nodule in the lateral right middle lobe is unchanged (image 174 series 3). No suspicious developing nodule is seen. Pleura: No pleural or pericardial effusions are identified. Base of neck, mediastinum and heart: The heart remains normal in size. Three- vessel coronary artery calcification is again noted. No developing thoracic lymphadenopathy is seen. Soft tissues: The overlying soft tissues are unremarkable. Abdomen: This study was performed without contrast and with lower than standard dose. These factors reduce the sensitivity for detection of small lesions in the upper abdomen. No significant abnormality is seen. Old, healed bilateral rib fractures are noted. Procedure Note Breanne Leo MD - 06/05/2025 History: 65 year-old 69 pack-year former smoker, asymptomatic, for lungcancer screening. Quit smoking 7 years ago. Comparison: 05/15/24, 06/15/23 Technique: Helical volumetric imaging of the thorax was performed, usinglow-dose technique, without IV contrast. DLP: 167.13 mGy/cm CTDIvol: 4.89 mGy All Def Digital Rudy Iterative reconstruction technique Findings: Lungs and Airways: The trachea and central bronchial tree remain patent.Diffuse bronchial wall thickening is again seen, consistent withbronchitis. Minimal foamy debris is seen within the dependent portion ofthe right main bronchus, compatible with mucous. There is severeemphysematous destruction of the pulmonary parenchyma. Coarse bandlike opacity in the right upper lobe, extending from themediastinal pleura to the lateral pleura is without significant changesince at least 2022, consistent with scarring. Juxtapleural atelectasis atthe base of the right middle lobe and lingula is without significantchange. Scattered foci of peripheral tree-in-bud opacity are again seen,consistent with chronic distal airways infection/mucous plugging. A 4 mm solid, noncalcified nodule in the lateral right middle lobe isunchanged (image 174 series 3). No suspicious developing nodule is seen. Pleura: No pleural or pericardial effusions are identified. Base of neck, mediastinum and heart: The heart remains normal in size.Three- vessel coronary artery calcification is again noted. No developingthoracic lymphadenopathy is seen. Soft tissues: The overlying soft tissues are unremarkable. Abdomen: This study was performed without contrast and with lower thanstandard dose. These factors reduce the sensitivity for detection of smalllesions in the upper abdomen. No significant abnormality is seen. Old, healed bilateral rib fractures are noted. IMPRESSION: Impression: No suspicious developing pulmonary nodule. No significant change. Lung-RADS Category: Lung-RADS 2: Nodule(s) with benign appearance orbehavior. Continue annual screening with Low Dose Chest CT in 12 months. Telerad HUNTER ([id number]) -------- FINAL REPORT -------- Dictated By: Breanne Leo Dictated Date: 06/05/2025 14:51 ET Assigned Physician: Breanne Leo Reviewed and Electronically Signed By: Breanne Leo Signed Date: 06/05/2025 15:02 ET Workstation ID: [id number] Transcribed By: Self Edit Transcribed Date: 06/05/2025 14:51 ET us Estuardo Marcum MD [facility] [place] CT PROCEDURES Final Result * (ABNORMAL) Basic metabolic panel (03/29/2025 9:24 AM EDT) Sodium 139 133 - 145 mmol/L LAB CHEMISTRY METHOD 03/29/2025 10:20 AM EDT [facility] Potassium 4.3 3.5 - 5.5 mmol/L [...] esult [facility] [address] [place] [address], from Last 3 Months or Most Recently Relevant to Health Maintenance Insurance [employer] MEDICARE ADVANTAGE MEDICAID - [place] MEDICARE Advance Directives Documents on File Type Date Recorded Patient Tests Superintendent Expl anation Advance Directives and Living Will [...] Health Care Agent Daly Jackson Daughter [facility] Health Care Agent Care Teams Developer Relations Manager Relationship Specialty Start Date End Date Sanju Disla MD [address] [place] [address] Dr [address] [place] PCP - General 05/07/1997
== END 2025-07-03 13:20 | disposition home or self-care (01) ==
LOC: HO.HGI 12:48
PROVIDERS: PCP Internal Medicine; Visit Provider Nurse Practitioner Family
DX: K59.04 Chronic idiopathic constipation (principal); K21.9 Gastro-esophageal reflux disease without esophagitis; R10.12 Left upper quadrant pain
CPT/HCPCS: 99214; G2211

== ENCOUNTER → 2025-07-03 12:48 | Outpatient (BNVA) | payer MEDICARE, MEDICAID, SELFPAY | PROVIDERS: PCP Internal Medicine; Visit Provider Nurse Practitioner Family | DX: K59.04 Chronic idiopathic constipation (principal); K21.9 Gastro-esophageal reflux disease without esophagitis; R10.12 Left upper quadrant pain; Z79.899 Other long term (current) drug therapy; F17.210 Nicotine dependence, cigarettes, uncomplicated | CPT/HCPCS: 99212 ==